=== PATIENT | female | born 1995 | race Caucasian/White ===

== ENCOUNTER 2018-01-26 04:55 | Emergency (ER) | payer MEDICAID, SELFPAY ==
[2018-01-26 04:55] VITALS: BP 125/76; PULSE 99; RESP 17; TEMP 36.3; O2SAT 97; BMI 24.3
[2018-01-26] MEDS: HYDROcodone Bitartrate/Apap 5/325 Tablet PO (05:15)
[2018-01-26] MEDS: Dicyclomine 10 MG Capsule 20 MG PO (05:15)
[2018-01-26 05:16] LABS: Bacteria 0 SEEN /hpf (None Seen); Mucous, Urine 0 SEEN /hpf (<or=2+); Red Blood Cells-Urine 0 SEEN /hpf (0-5)
[2018-01-26] MEDS: Ondansetron ODT 4 MG Tablet PO (05:16)
[2018-01-26 05:17] LABS: Color, Urine Yellow (Yellow); Glucose, Dipstick Normal (Normal); Ketone-Dipstick 15 mg/dl (Negative); Leukocyte Esterase-Dipstick 100 /ul (Negative); Nitrite-Dipstick Negative (Negative); Occult Blood-Urine Negative /ul (Negative); Protein-Dipstick 15 mg/dl (Negative); Urine Bilirubin Dipstick Negative (Negative); Urine Clarity Clear (Clear); Urine Urobilinogen 1 mg/dl (Normal); Urine pH 6.5 (5.0 - 8.0)
[2018-01-26 05:26] LABS: Squamous Epithelial Cells - UA 50-100 SEEN /hpf (5-10); White Blood Cells 0-5 SEEN /hpf (0-5)
[2018-01-26 05:27] LABS: Internal QC Validated? YES +Cl - CLEAR BKGD; Pregnancy, Urine Negative Negative
--- NOTE | 2018-01-26 06:03 | ED.DCSUM_ITS ---
- ER Visit Summary Date of Service: 01/26/18 Chief Complaint: Abdominal pain History of Present Illness: The patient is a 22 F with multiple medical issues and chronic abdominal pain presents with an exacerbation of her abdominal pain. The patient states it feels similar when she is an ovarian cyst before. The patient has been seen and evaluated in the emergency department by her primary care physician for similar complaints multiple times. She did have a CT scan 3 months ago which showed a small ovarian cyst but no other acute pathology. She states that the pain started over the past 2-3 days. It has been gradual and intermittent. She states she has cramping in bilateral lower quadrants. She is sexually active but denies any vaginal bleeding. She denies any discharge. She has had no urinary symptoms. Physical Examination: Vital signs reviewed General: Well-nourished, well-developed Head: Normocephalic, atraumatic Eyes: Pupils equal and reactive, extraocular muscles intact Neck, supple, no lymphadenopathy Heart: Regular rate and rhythm Respiratory: No distress, clear bilaterally Abdomen: Soft, nontender, nondistended, no peritoneal signs Back: Nontender Extremities: Nontender, no edema, no cords Skin: Normal color no rash Neuro: Alert and oriented, no focal or lateralizing deficits Test Results: [] Emergency Department Course and Treatment: I cannot re-create any pain on palpation. The patient has a completely benign abdomen. I really do not suspect a dangerous process. I did obtain a urine and which are both unremarkable. This may be a small cyst, but I have no suspicion of torsion. I will treat the patient with Bentyl and Naprosyn. She was counseled on concerning symptoms and reasons to return. The patient is discharged home. Treatment Plan: [] Disposition: Charge Impression: 1. Nonspecific abdominal pain This note was generated with [employer] dictation software. It may contain incorrect words, spelling, and punctuation that were not noted in review of the chart prior to signing ED Disposition - Plan for ED Patient: Disposition: Home or Assisted Living Chief Complaint: Abd Pain Instructions: ED Abdominal Pain Unkn Cause Prescriptions: Dicyclomine HCl [Bentyl] 20 mg PO TIDAC #20 cap Naproxen [Naprosyn] 500 mg PO BID #20 tab Referrals: Ryan Montoya DO [Primary Care Provider] -
[2018-01-26 06:08] VITALS: PULSE 87; RESP 22; O2SAT 100
--- NOTE | 2018-01-26 06:09 | ED.RN ---
THIS NURSE REVIEWED D/C INSTRUCTIONS WITH PT. PT VERBALIZED UNDERSTANDING OF INSTRUCTIONS. PT DENIES FURTHER NEEDS OR QUESTIONS AT THIS TIME.
== END 2018-01-26 06:10 | disposition home or self-care (01) ==
LOC: ED 06:09
PROVIDERS: Emergency Provider Emergency Medicine; Family Provider Family Medicine; PCP Family Medicine
DX: R10.9 Unspecified abdominal pain (principal); G89.29 Other chronic pain; Z79.51 Long term (current) use of inhaled steroids; Z79.899 Other long term (current) drug therapy
CPT/HCPCS: 81001; 81025; 99283

== ENCOUNTER → 2018-07-27 08:48 | Outpatient (CLI) | payer MEDICAID, SELFPAY ==
[2018-07-27 12:33] LABS: T4 Free Direct 0.91 ng/dL (0.76-1.46); Thyroid Stim Hormone (TSH) 2.59 uIU/mL (0.358-3.74)
[2018-07-27 13:31] LABS: HIV - WCH Non-Reactive (Nonreactive)
[2018-07-27 14:12] LABS: Chlamydia Trachomatis by PCR Negative (Negative); Neisserai gonorrhoeae by PCR Negative (Negative); Probe Check PASS; Sample Adequacy Control PASS; Specimen Processing Control PASS
[2018-07-29 03:49] LABS: Rapid Plasmin Reagin (RPR) NONREACTIVE (NONREACTIVE)
== END ==
PROVIDERS: Family Provider Family Medicine; PCP Family Medicine; Visit Provider Family Medicine
DX: E01.0 Iodine-deficiency related diffuse (endemic) goiter (principal); T74.21XA Adult sexual abuse, confirmed, initial encounter; Z20.9 Contact with and (suspected) exposure to unspecified communicable disease
CPT/HCPCS: 36415; 84439; 84443; 86592; 86703; 87491; 87591

== ENCOUNTER → 2018-08-26 10:47 | Outpatient (CLI) | payer MEDICAID, SELFPAY ==
[2018-08-26 12:15] LABS: Absolute Lymphocyte Count 1.74 X10^3/ul (0.83-4.51); Absolute Neutrophil Count 2.9 X10^3/uL (2.0-7.7); Basophil# 0.04 X10^3/uL; Basophil% 0.8 % (0-1); Eosinophil# 0.08 X10^3/uL; Eosinophils% 1.5 % (0-5); Hematocrit 36.6 % (37-47); Hemoglobin 11.8 g/dl (12.0-15.0); Lymphocyte # 1.74 X10^3/ul (4.0); Mean Corp Hgb Conc 32.2 g/gl (32-36); Mean Corpuscular Hgb 25.6 pg (27.0-32.0); Mean Corpuscular Volume 79.4 fL (81-99); Mean Platelet Vol. 9.5 fl (6.2-12.0); Monocyte# 0.51 X10^3/uL; Monocyte% 9.7 % (0-10); Platelet Count 294 K/mm3 (150-450); RBC Distribution Width CV 16.1 % (11.6-14.6); Red Blood Count 4.61 M/mm3 (4.2-5.4); White Blood Count 5.3 K/mm3 (4.4-11.0)
[2018-08-26 12:22] LABS: POSITIVE COUNT NO; POSITIVE DIFFERENTIAL NO; POSITIVE MORPHOLOGY NO
[2018-08-26 12:32] LABS: ALB/GLOB Ratio 1.1 RATIO (0.9-2.4); AST(SGOT) 14 U/L (15-37); Alanine Aminotransfer ALT/SGPT 18 U/L (13-56); Albumin, Serum 3.9 g/dL (3.2-5.0); Alkaline Phosphatase 57 U/L (45-117); Anion Gap 9 (5-15); BUN 11 mg/dL (7-18); BUN/Creat Ratio 16.9 RATIO (10-20); CRP < 2.90 mg/L (0.0-3.0); Chloride 108 mmol/L (98-107); Creatinine, Serum 0.65 mg/dL (0.55-1.02); EST Glomerular Filtration Rate 122 mL/min (>60); Est Glom Filt Rate - Afr Amer 148 mL/min (>60); Globulin 3.7 g/dL (2.2-4.2); Glucose 77 mg/dL (74-106); Potassium 3.7 mmol/L (3.5-5.1); Protein, Total 7.6 g/dL (6.4-8.2); Sodium Level 141 mmol/L (136-145)
[2018-08-26 13:09] LABS: HIV - WCH Non-Reactive (Nonreactive)
== END ==
PROVIDERS: Family Provider Family Medicine; PCP Family Medicine; Visit Provider Family Medicine
DX: T74.21XA Adult sexual abuse, confirmed, initial encounter (principal); R10.9 Unspecified abdominal pain; R35.0 Frequency of micturition; Z20.2 Contact with and (suspected) exposure to infections with a predominantly sexual mode of transmission
CPT/HCPCS: 36415; 80053; 85025; 86140; 86703

== ENCOUNTER → 2018-09-24 08:48 | Outpatient (CLI) | payer MEDICAID, SELFPAY ==
--- NOTE | 2018-09-24 09:23 | US_ITS ---
STUDY: ULTRASOUND TRANSVAGINAL CLINICAL: Female, 23 years old. Irregular menses. TECHNIQUE: Transabdominal and transvaginal. COMPARISON: None. FINDINGS: Uterus is anteverted and measures 6.9 x 4.3 x 3.3 cm. Endometrial thickness 7 mm. Endometrium is hyperechoic. No fibroids. Cervix is within normal limits. No IUD. Normal right ovary, measuring 3.3 x 2.2 x 2.1 cm. Normal vascular flow. Normal left ovary, measuring 4.3 x 2.9 x 2.2 cm. Normal vascular flow. There is no free fluid in the pelvis. Bladder volume is 1067 mL. US/Pelvic (Non ) IMPRESSION: Normal pelvic ultrasound. Electronically Signed: Reji Honeycutt MD at 4:02 EDT , Service support ,
--- NOTE | 2018-09-24 09:33 | US_ITS ---
STUDY: ULTRASOUND TRANSVAGINAL CLINICAL: Female, 23 years old. Irregular menses. TECHNIQUE: Transabdominal and transvaginal. COMPARISON: None. FINDINGS: Uterus is anteverted and measures 6.9 x 4.3 x 3.3 cm. Endometrial thickness 7 mm. Endometrium is hyperechoic. No fibroids. Cervix is within normal limits. No IUD. Normal right ovary, measuring 3.3 x 2.2 x 2.1 cm. Normal vascular flow. Normal left ovary, measuring 4.3 x 2.9 x 2.2 cm. Normal vascular flow. There is no free fluid in the pelvis. Bladder volume is 1067 mL. US/Transvaginal Non- IMPRESSION: Normal pelvic ultrasound. Electronically Signed: Reji Honeycutt MD at 4:02 EDT , Service support ,
== END ==
PROVIDERS: Family Provider Family Medicine; PCP Family Medicine
DX: N93.8 Other specified abnormal uterine and vaginal bleeding (principal)
CPT/HCPCS: 76830; 76856; 93976

== ENCOUNTER → 2018-11-18 08:46 | Outpatient (CLI) | payer MEDICAID, SELFPAY ==
[2018-11-18 12:12] LABS: Absolute Lymphocyte Count 1.26 X10^3/ul (0.83-4.51); Basophil# 0.03 X10^3/uL; Basophil% 0.4 % (0-1); Eosinophil# 0.07 X10^3/uL; Hematocrit 36.5 % (37-47); Hemoglobin 11.5 g/dl (12.0-15.0); Lymphocyte # 1.26 X10^3/ul (4.0); Lymphocyte % 17.6 % (19-41); Mean Corp Hgb Conc 31.5 g/gl (32-36); Mean Corpuscular Hgb 25.7 pg (27.0-32.0); Mean Corpuscular Volume 81.7 fL (81-99); Mean Platelet Vol. 9.7 fl (6.2-12.0); Monocyte# 0.79 X10^3/uL; Neutrophil # 4.99 X10^3/uL (2.7-7.7); Neutrophil % 69.9 % (47-70); Platelet Count 309 K/mm3 (150-450); RBC Distribution Width CV 15.3 % (11.6-14.6); RBC Distribution Width SD 44.9 fl (35.1-43.9); Red Blood Count 4.47 M/mm3 (4.2-5.4); White Blood Count 7.2 K/mm3 (4.4-11.0)
[2018-11-18 12:16] LABS: POSITIVE COUNT NO; POSITIVE DIFFERENTIAL NO; POSITIVE MORPHOLOGY NO
[2018-11-18 12:22] LABS: ALB/GLOB Ratio 0.9 RATIO (0.9-2.4); AST(SGOT) 13 U/L (15-37); Alanine Aminotransfer ALT/SGPT 21 U/L (13-56); Albumin, Serum 3.7 g/dL (3.2-5.0); Alkaline Phosphatase 55 U/L (45-117); Anion Gap 7 (5-15); BUN 11 mg/dL (7-18); BUN/Creat Ratio 16.3 RATIO (10-20); Calcium,Total 8.6 mg/dL (8.5-10.1); Chloride 107 mmol/L (98-107); Creatinine, Serum 0.67 mg/dL (0.55-1.02); EST Glomerular Filtration Rate 117 mL/min (>60); Est Glom Filt Rate - Afr Amer 141 mL/min (>60); Globulin 3.9 g/dL (2.2-4.2); Glucose 85 mg/dL (74-106); Potassium 3.9 mmol/L (3.5-5.1); Protein, Total 7.6 g/dL (6.4-8.2); Sodium Level 141 mmol/L (136-145)
== END ==
PROVIDERS: Family Provider Family Medicine; PCP Family Medicine; Visit Provider Family Medicine
DX: R10.9 Unspecified abdominal pain (principal)
CPT/HCPCS: 36415; 80053; 85025; 86140

== ENCOUNTER → 2019-01-23 13:56 | Outpatient (CLI) | payer MEDICAID, SELFPAY ==
[2019-01-23 15:17] LABS: Absolute Lymphocyte Count 2.02 X10^3/ul (0.83-4.51); Absolute Neutrophil Count 2.7 X10^3/uL (2.0-7.7); Basophil# 0.03 X10^3/uL; Basophil% 0.6 % (0-1); Eosinophil# 0.03 X10^3/uL; Eosinophils% 0.6 % (0-5); Hematocrit 38.7 % (37-47); Hemoglobin 12.3 g/dl (12.0-15.0); Lymphocyte # 2.02 X10^3/ul (4.0); Lymphocyte % 38.4 % (19-41); Mean Corp Hgb Conc 31.8 g/gl (32-36); Mean Corpuscular Hgb 25.4 pg (27.0-32.0); Mean Corpuscular Volume 79.8 fL (81-99); Mean Platelet Vol. 9.4 fl (6.2-12.0); Monocyte# 0.49 X10^3/uL; Monocyte% 9.3 % (0-10); Neutrophil # 2.69 X10^3/uL (2.7-7.7); Neutrophil % 51.1 % (47-70); Platelet Count 352 K/mm3 (150-450); RBC Distribution Width SD 43.4 fl (35.1-43.9); Red Blood Count 4.85 M/mm3 (4.2-5.4); White Blood Count 5.3 K/mm3 (4.4-11.0)
[2019-01-23 15:38] LABS: hCG Titer Quant., Serum < 1 mIU/mL (<9 non-preg)
[2019-01-23 15:40] LABS: POSITIVE COUNT NO; POSITIVE DIFFERENTIAL NO; POSITIVE MORPHOLOGY NO
[2019-01-23 15:43] LABS: Vitamin B12 701 pg/mL (211-911)
[2019-01-23 15:50] LABS: ALB/GLOB Ratio 1.1 RATIO (0.9-2.4); AST(SGOT) 12 U/L (15-37); Alanine Aminotransfer ALT/SGPT 16 U/L (13-56); Albumin, Serum 4.3 g/dL (3.2-5.0); Alkaline Phosphatase 61 U/L (45-117); Anion Gap 9 (5-15); BUN 9 mg/dL (7-18); BUN/Creat Ratio 12.7 RATIO (10-20); CRP < 2.90 mg/L (0.0-3.0); Calcium,Total 8.7 mg/dL (8.5-10.1); Chloride 106 mmol/L (98-107); Creatinine, Serum 0.71 mg/dL (0.55-1.02); EST Glomerular Filtration Rate 110 mL/min (>60); Est Glom Filt Rate - Afr Amer 133 mL/min (>60); Globulin 3.9 g/dL (2.2-4.2); Glucose 91 mg/dL (74-106); Potassium 3.5 mmol/L (3.5-5.1); Protein, Total 8.2 g/dL (6.4-8.2); Sodium Level 141 mmol/L (136-145); T4 Free Direct 0.99 ng/dL (0.76-1.46); Thyroid Stim Hormone (TSH) 1.92 uIU/mL (0.358-3.74)
[2019-01-23 15:59] LABS: Erythrocyte Sedimentation Rate 15 mm/hr (0-20)
[2019-01-24 08:06] LABS: Cancer Antigen 125 24.7 U/mL (0.0-38.1)
== END ==
PROVIDERS: Family Provider Family Medicine; PCP Family Medicine; Visit Provider Family Medicine
DX: R10.9 Unspecified abdominal pain (principal); G62.9 Polyneuropathy, unspecified; E04.1 Nontoxic single thyroid nodule; Z80.41 Family history of malignant neoplasm of ovary
CPT/HCPCS: 36415; 80053; 82607; 84439; 84443; 84702; 85025; 85652; 86140; 86304

== ENCOUNTER 2019-06-13 09:51 | Emergency (ER) | payer MEDICAID, SELFPAY ==
[2019-06-13 09:52] VITALS: BP 108/61; PULSE 77; RESP 14; TEMP 36.6; O2SAT 97; BMI 27.4
--- NOTE | 2019-06-13 10:00 | EKG12_ITS ---
Test Reason : CP Blood Pressure : / mmHG Vent. Rate : 072 BPM Atrial Rate : 072 BPM P-R Int : 140 ms QRS Dur : 082 ms QT Int : 400 ms P-R-T Axes : 033 060 030 degrees QTc Int : 438 ms Normal sinus rhythm Normal ECG Confirmed by HAILEY CARTAGENA MD ([id number]), magazine editor JASPAL AMES ([id number]) on 06/15/2019 1:42:57 PM Referred By: RUSS Confirmed By:HAILEY CARTAGENA MD
--- NOTE | 2019-06-13 10:01 | ED.VIS.CHEST ---
History of Present Illness Chief Complaint: Chest Pain Informant: Patient Onset: Hours - 1 Activity at onset: Sleep Timing: Continuous Quality: Stabbing Location: Right Chest - radiates a little into upper back Current Severity: Moderate Maximum Severity: Moderate Worsened By: Nothing Relieved By: Nothing Associated Symptoms: Negative for: Nausea, Vomiting, Diaphoresis, Dyspnea, Cough, Lightheadedness, Palpitations Narrative: Patient states she has had these symptoms chronically, she gets it every several days, and whenever she gets it, I come to the hospital. States she recently moved back here and is seeing Dr. Nam now but has not talked to her PCP yet about the symptoms. She states in the past in the ER, they do not do anything for me. Symptoms occur basically only when she is lying down. She often wakes up with the symptoms as she did this morning. Sitting up did not make them go away. It feels sharp and nonpleuritic. She denies any associated systemic symptoms. When she is upright during the day, even when exerting herself, she has no recurrence of symptoms. Prior Similar Symptoms: Yes - chronically intermittent Recent Illness/Hospitalization: No CVD Risk Factors: Diabetes. Negative for: Hypertension, Hypercholesterolemia, Family History 1' </=55, Smoking PE Risk Factors: Negative for: Recent Travel/Surgery, Recenet Immobilization, Prior DVT or PE, Cancer, OCP + Smoking + >/=35 - Past Medical History (1) alcohol syndrome Status: Chronic (2) Asthma Status: Chronic (3) Diet-controlled diabetes mellitus Status: Chronic (4) GERD (gastroesophageal reflux disease) Status: Chronic Past Medical History - Allergies and Home Meds Allergies/Adverse Reactions: Allergies etonogestrel [From Nexplanon] Allergy (Verified 06/13/19 09:54) Swelling lidocaine Allergy (Verified 06/13/19 09:54) Anaphylaxis mushroom Allergy (Verified 06/13/19 09:54) Other procaine [From Novocain] Allergy (Verified 06/13/19 09:54) Unknown adhesive tape Adverse Reaction (Verified 06/13/19 09:54) Rash Primary Care Physician: Galdino Nam MD [Primary Care Provider] - 3-5 Days (call for appt) Doctors: Viv Smoking Status: Former smoker Drugs: None Review of Systems General: Denies: Chills, Fever, Sweats Eyes: Denies: Visual changes - bilaterally, Diplopia ENT: Denies: Rhinorrhea, Sore throat Cardiovascular: Reports: Chest pain. Denies: Palpitations Respiratory: Denies: Dyspnea, Cough, Dyspnea on exertion Gastrointestinal: Denies: Abdominal pain, Nausea, Vomiting, Diarrhea, Melena, Hematochezia Genitourinary: Denies: Dysuria, Hematuria, Frequency Musculoskeletal: Reports: Back pain. Denies: Swelling, Extremity Pain Skin: Denies: Rash, Wounds Neurological: Denies: Headache, Weakness, Numbness Hematologic: Denies: Easy bruising, Easy bleeding Allergy: Denies: Swelling of the mouth, Swelling of the tongue Physical Exam Vital Signs/Narrative: Vital Signs Temp Pulse Resp BP Pulse Ox 06/13/19 09:52 97.8 F 77 14 108/61 97 Inital Vital Signs reviewed: Yes General: Well nourished, Well developed, No Acute Distress Head: Normocephalic, Atraumatic Eyes: Perrl, EOMI ENT: Moist mucous membranes, No rhinorrhea Neck: Supple, Nontender Cardiovascular: Regular rate, Regular rhythm, No murmurs, Normal S1, Normal S2, - - equal bilat 2+/4 rad pulses. Negative for: Tachycardia Respiratory: No distress, CTA bilaterally, Chest nontender Abdomen: Soft, Nontender, Nondistended, Normal bowel sounds Back: Nontender, Normal Inspection Extremities: Nontender, No edema. Negative for: Calf Tenderness Skin: Normal color, No rash, No Trauma Neurological: Alert, Oriented x3, Cranial nerves II-XII grossly intact, Normal Strength, Normal Sensation Psychological: Normal affect, Normal Mood Diagnostic/Tx/Re-eval - Rhythm Strip Rhythm Strip: Sinus Rhythm Rate: 75 Ectopy: None - EKG Initial EKG Interpretation: Sinus Rhythm, No Acute Injury Pattern - Normal EKG Treatment: GI Cocktail Repeat Eval: unchanged - Medical Decision Making This clearly is noncardiac discomfort. Her EKG confirms there is no acute cardiac abnormality electrically. Her vital signs are unremarkable and her score is 0. Therefore, further work-up to rule out pulmonary embolus is not indicated. Initially after a GI cocktail, she had no change. She was then given an injection of Toradol, and her discomfort completely resolved and she feels better and is asking for a work note. Advised to follow-up. She is already on omeprazole, advised to continue it. ED Disposition - Plan for ED Patient: Disposition: Home or Assisted Living Diagnosis: Non-cardiac chest pain Instructions: CHEST PAIN, NonCardiac Referrals: Galdino Nam MD [Primary Care Provider] - 3-5 Days (call for appt)
[2019-06-13] MEDS: Mag Hydrox/Al Hydrox/Simeth 30 ML UDC PO (10:07)
[2019-06-13 10:21] LABS: Bedside Glucose 107 mg/dL (70-110)
[2019-06-13] MEDS: Ketorolac 30 MG/ML Syringe IM (11:07)
[2019-06-13 12:08] VITALS: BP 103/78; PULSE 71; RESP 16; O2SAT 98
== END 2019-06-13 12:09 | disposition home or self-care (01) ==
PROVIDERS: Emergency Provider Emergency Medicine; Family Provider Family Medicine; PCP Family Medicine
DX: R07.89 Other chest pain (principal); J45.909 Unspecified asthma, uncomplicated; K21.9 Gastro-esophageal reflux disease without esophagitis; E11.9 Type 2 diabetes mellitus without complications; Z87.891 Personal history of nicotine dependence; Z79.51 Long term (current) use of inhaled steroids; Z79.899 Other long term (current) drug therapy
CPT/HCPCS: 82962; 93005; 96372; 99283

== ENCOUNTER → 2019-06-22 | Outpatient (CLI) | payer MEDICAID, SELFPAY ==
[2019-06-13 09:52] VITALS: BMI 27.4
[2019-06-22 16:30] LABS: D-Dimer Quantitative (DVT/PE) 0.43 FEU/ug/m (0.27-0.49)
== END | disposition home or self-care (01) ==
LOC: LAB 15:38 → LABSPEC 15:51
PROVIDERS: Family Provider Family Medicine; PCP Family Medicine; Referring Provider Family Medicine; Visit Provider Family Medicine
DX: R07.9 Chest pain, unspecified (principal)
CPT/HCPCS: 85379

== ENCOUNTER 2019-08-30 00:10 | Emergency (ER) | payer MEDICAID, SELFPAY ==
[2019-08-30 00:12] VITALS: BP 114/67; PULSE 89; RESP 14; TEMP 36.9; O2SAT 98; BMI 29.2
--- NOTE | 2019-08-30 00:20 | RAD_ITS ---
HISTORY: FALL, RIGHT WRIST PAIN ADDITIONAL HISTORY: None provided. COMPARISON: None TECHNIQUE: Right wrist 3 views Number of images including paperwork: 3 FINDINGS: BONES: No acute fracture. JOINTS: No subluxation. SOFT TISSUES: No distinct foreign body. RAD/Wrist min 3 Views IMPRESSION: No acute osseous abnormality. at 0107 Reported and signed by: Yisel Moore MD Electronically Signed: Yisel Moore MD at 1:07 EDT Tel , Service support ,
--- NOTE | 2019-08-30 00:20 | RAD_ITS ---
HISTORY: FALL/RIGHT ANKLE PAIN ADDITIONAL HISTORY: None provided. COMPARISON: 08/25/2017 TECHNIQUE: Right ankle 3 views Number of images including paperwork: 3 FINDINGS: BONES: No acute fracture. JOINTS: No subluxation. SOFT TISSUES: No distinct foreign body. RAD/Ankle min 3 Views IMPRESSION: No acute osseous abnormality. at 0108 Reported and signed by: Yisel Moore MD Electronically Signed: Yisel Moore MD at 1:08 EDT Tel , Service support ,
--- NOTE | 2019-08-30 00:20 | RAD_ITS ---
HISTORY: FELL TONIGHT/RIGHT KNEE PAIN ADDITIONAL HISTORY: None provided. COMPARISON: None TECHNIQUE: Right knee 4 views Number of images including paperwork: 5 FINDINGS: BONES: No acute fracture. JOINTS: No subluxation. Lateral tilting of the patella SOFT TISSUES: No distinct foreign body. Anterior soft tissue swelling. RAD/Knee 4 or More Views IMPRESSION: No acute osseous abnormality. at 0106 Reported and signed by: Yisel Moore MD Electronically Signed: Yisel Moore MD at 1:06 EDT Tel , Service support ,
--- NOTE | 2019-08-30 00:23 | ED.DCSUM_ITS ---
- ER Visit Summary Date of Service: 08/30/19 Chief Complaint: Fall History of Present Illness: The patient is a 24 F who tells me she was climbing up to the top bunk tonight when her knee gave out. She ended up falling to the ground. She notes pain in the right wrist, right anterior inferior knee, and the right ankle. No loss of conscious. No neck or back pain. Physical Examination: Afebrile vital signs are stable Gen: Well-nourished well-developed Head: Normocephalic atraumatic Eyes: Perrl EOMI ENT: TMs clear no rhinorrhea moist mucous membranes Neck: Supple no lymphadenopathy no JVD nontender CVS: Regular rate rhythm no murmurs normal S1-S2 Respiratory: No distress clear to auscultation bilaterally chest nontender Abdomen: Soft nontender nondistended normal bowel sounds no masses Back: Nontender Extremity: There is a small superficial abrasion about 3 mm in length to the right lateral malleolus. The right knee is tender with a small contusion in the inferior lateral anterior skin. Ligaments are stable. No joint effusion. Extensor mechanism is intact. Right wrist demonstrate tenderness to palpation but no deformity. She is able to supinate pronate. Neurovascular intact Skin: Normal color no rash Neuro: alert orientated ?3 CN II-XII intact normal strength sensation Psych: Normal affect normal mood Test Results: X-rays of the wrist, knee, and ankle were obtained. Emergency Department Course and Treatment: No obvious fractures were noted. She will be discharged home with supportive care. Follow-up with primary care in 10 to 14 days if not improved Impression: 1. Right wrist sprain 2. Right knee contusion 3. Right ankle abrasion and contusion This note was generated with [employer] dictation software. It may contain incorrect words, spelling, and punctuation that were not noted in review of the chart prior to signing ED Disposition - Plan for ED Patient: Disposition: Home or Assisted Living Instructions: CONTUSION, Lower Extremity, Wrist Sprain Referrals: Galdino Nam MD [Primary Care Provider] - 10-14 Days if not better
== END 2019-08-30 00:53 | disposition home or self-care (01) ==
LOC: ED 00:30
PROVIDERS: Emergency Provider Emergency Medicine; Family Provider Family Medicine; PCP Family Medicine
DX: S63.501A Unspecified sprain of right wrist, initial encounter (principal); S80.01XA Contusion of right knee, initial encounter; S90.511A Abrasion, right ankle, initial encounter; J45.909 Unspecified asthma, uncomplicated; K21.9 Gastro-esophageal reflux disease without esophagitis; Z87.891 Personal history of nicotine dependence; Z79.51 Long term (current) use of inhaled steroids; Z79.899 Other long term (current) drug therapy; W06.XXXA Fall from bed, initial encounter; Y93.89 Activity, other specified; Y92.003 Bedroom of unspecified non-institutional (private) residence as the place of occurrence of the external cause; Y99.8 Other external cause status
CPT/HCPCS: 73110; 73564; 73610; 99282

== ENCOUNTER 2019-09-24 15:29 | Emergency (ER) | payer MEDICAID, SELFPAY ==
[2019-09-24 15:31] VITALS: BP 108/69; PULSE 87; PULSE 92; RESP 17; TEMP 36.7; O2SAT 98; BMI 26.7
--- NOTE | 2019-09-24 15:42 | ED.VISSUMM ---
- ER Visit Summary Date of Service: 09/24/19 Chief Complaint: 1 to 2-day history of nausea, vomiting, diarrhea and cough. History of Present Illness: The patient is a 24 F past medical history of asthma, pseudoseizures, borderline diabetes and depression. She is also had alcohol syndrome. They states the last 2 days she has had a cough at times of yellowish phlegm. And nausea, vomiting diarrhea. States she is able to hold fluids down. Subjectively has had fever chills but not documented fever. Denies abdominal pain. No shortness of breath. Physical Examination: Well-appearing young female no acute distress. Vital signs are stable and afebrile. Pulse is 90% room air no signs of hypoxia. Temperature 98.1. She does not look septic or toxic. H EENT exam unremarkable. Moist week's membranes. Posterior pharynx normal. No trouble swallowing or breathing. No stridor or drooling. Neck nontender. No lymphadenopathy. No meningismus. Lungs clear to auscultation bilaterally. Dry cough. Heart regular rhythm no murmur. Abdomen soft and nontender normal bowel sounds no peritoneal signs. Patient moving all 4 extremities calves are nontender without edema. Neurologically she is awake alert with no focal motor deficits. Test Results: None Emergency Department Course and Treatment: Clinically and historically viral syndrome without any significant physical findings. Treatment Plan: Fluids and rest. Patient did not want a nausea medication for home. She also did not need a work or school excuse. Follow-up if not improving. Disposition: Discharge Impression: Viral syndrome This note was generated with [employer] dictation software. It may contain incorrect words, spelling, and punctuation that were not noted in review of the chart prior to signing ED Disposition - Plan for ED Patient: Referrals: Galdino Nam MD [Primary Care Provider] -
--- NOTE | 2019-09-24 15:44 | ED.DEP ---
ED Disposition - Plan for ED Patient: Disposition: Home or Assisted Living Instructions: VIRAL SYNDROME (Adult) Referrals: Galdino Nam MD [Primary Care Provider] - 1 Week if not improving Additional Instructions: Plenty of fluids and rest. Follow-up if not improving or return if feeling worse. Tylenol Motrin for fever and body aches.
== END 2019-09-24 16:05 | disposition home or self-care (01) ==
LOC: ED 16:01
PROVIDERS: Emergency Provider Emergency Medicine; Family Provider Family Medicine; PCP Family Medicine
DX: B34.9 Viral infection, unspecified (principal); F32.9 Major depressive disorder, single episode, unspecified; J45.909 Unspecified asthma, uncomplicated; Z79.51 Long term (current) use of inhaled steroids; Z79.899 Other long term (current) drug therapy; Q86.0 Fetal alcohol syndrome (dysmorphic); Z72.0 Tobacco use
CPT/HCPCS: 99282

== ENCOUNTER 2019-10-18 17:37 | Emergency (ER) | payer MEDICAID, SELFPAY ==
[2019-10-18 17:38] VITALS: BP 112/75; PULSE 91; RESP 15; TEMP 37.7; O2SAT 97; BMI 26.6
--- NOTE | 2019-10-18 17:48 | EKG12_ITS ---
Test Reason : GEN. ILLNESS Blood Pressure : / mmHG Vent. Rate : 090 BPM Atrial Rate : 090 BPM P-R Int : 140 ms QRS Dur : 088 ms QT Int : 372 ms P-R-T Axes : 040 072 022 degrees QTc Int : 455 ms Normal sinus rhythm Normal ECG Confirmed by AYALA CHAND, GODFREY ([id number]), editor greeting card JASPAL AMES ([id number]) on 10/20/2019 1:16:34 PM Referred By: DEENA Confirmed By:KRYSTAL CAI MD
--- NOTE | 2019-10-18 17:48 | RAD_ITS ---
STUDY: X-RAY CHEST REASON FOR EXAM: Female, 24 years old. Chest pain TECHNIQUE: PA and lateral views of the chest COMPARISON: X-Ray Chest December 11, 2017 FINDINGS: The lungs are clear. There are no pleural effusions. There is no pneumothorax. The heart is normal in size. The visualized osseous structures are within normal limits. RAD/Chest PA and Lateral IMPRESSION: No acute thoracic pathology. Electronically Signed: Cali Tavera, at 18:56 EST Tel , Service support ,
[2019-10-18 18:31] LABS: Bacteria 0 SEEN /hpf (None Seen); Red Blood Cells-Urine 0 SEEN /hpf (0-5); White Blood Cells 0 SEEN /hpf (0-5)
[2019-10-18 18:32] LABS: Absolute Lymphocyte Count 0.79 X10^3/uL (0.83-4.51); Absolute Neutrophil Count 5.7 X10^3/uL (2.0-7.7); Basophil# 0.03 X10^3/uL; Basophil% 0.4 % (0-1); Eosinophil# 0.14 X10^3/uL; Hematocrit 41.1 % (37-47); Hemoglobin 13.4 g/dL (12.0-15.0); Lymphocyte # 0.79 X10^3/ul (4.0); Lymphocyte % 11.2 % (19-41); Mean Corp Hgb Conc 32.6 g/dL (32-36); Mean Corpuscular Volume 82.9 fL (81-99); Monocyte# 0.37 X10^3/uL; Monocyte% 5.3 % (0-10); NRBC Flagged by Analyzer 0 % (0-5); Neutrophil # 5.67 X10^3/uL (2.7-7.7); Neutrophil % 80.7 % (47-70); Platelet Count 286 K/mm3 (150-450); RBC Distribution Width CV 14.1 % (11.6-14.6); RBC Distribution Width SD 42.7 fl (35.1-43.9); Red Blood Count 4.96 M/mm3 (4.2-5.4)
[2019-10-18 18:37] LABS: Color, Urine Yellow (Yellow); Glucose, Dipstick Normal (Normal); Ketone-Dipstick Negative (Negative); Leukocyte Esterase-Dipstick Negative /ul (Negative); Nitrite-Dipstick Negative (Negative); Occult Blood-Urine 50 /ul (Negative); Protein-Dipstick 15 mg/dl (Negative); Specific Gravity, Urine 1.025 (1.002-1.030); Urine Bilirubin Dipstick Negative (Negative); Urine Clarity Sl. Cloudy (Clear); Urine Urobilinogen Normal (Normal)
[2019-10-18] MEDS: Ketorolac 30 MG/ML Syringe IV (18:38)
[2019-10-18] MEDS: 0.9% Normal Saline 1,000 ML 999 ML IV (18:38)
[2019-10-18 18:48] LABS: D-Dimer Quantitative (DVT/PE) 0.49 FEU/ug/m (0.27-0.49)
[2019-10-18 18:49] LABS: Anion Gap 8 (5-15); BUN 11 mg/dL (7-18); BUN/Creat Ratio 13.9 RATIO (10-20); Calcium,Total 8.7 mg/dL (8.5-10.1); Chloride 109 mmol/L (98-107); Creatinine, Serum 0.79 mg/dL (0.55-1.02); EST Glomerular Filtration Rate 96 mL/min (>60); Est Glom Filt Rate - Afr Amer 116 mL/min (>60); Estimated Creatinine Clearance 104.57 ml/min; Glucose 92 mg/dL (74-106); Potassium 3.2 mmol/L (3.5-5.1); Sodium Level 138 mmol/L (136-145)
[2019-10-18 18:51] LABS: Mucous, Urine 1+ /hpf (<or=2+); Squamous Epithelial Cells - UA 0-5 SEEN /hpf (5-10)
--- NOTE | 2019-10-18 19:14 | ED.VISSUMM ---
- ER Visit Summary Date of Service: 10/18/19 Chief Complaint: [Diarrhea and vomiting as well as chest pain] History of Present Illness: The patient is a 24 F [Zentz to the emergency department with vomiting and diarrhea that started at 2 AM. Patient had more than 10 episodes of vomiting and diarrhea. Patient was seen in urgent care and was referred to the ER. Patient states that she is most concerned with chest pain that she is been having intermittently over the last several months. Patient describes a sharp stabbing pain in her left chest. At times feels somewhat short of breath with it. She denies recent travel or surgery. She has no history of PE or DVT. She has no clotting disorders. Patient denies any sick contacts. Patient has had low-grade fever since the vomiting and diarrhea started up to 100. Complaint of a headache.] Physical Examination: [HEENT-PERRLA, EOMI. Cranial nerves II through XII grossly intact. TMs clear. Mucous membranes moist. No adenopathy. Cardiovascular-regular rate and rhythm without murmur or ectopy Lungs-clear to auscultation, chest wall stable without crepitus or subcu emphysema Abdomen-normoactive bowel sounds, soft, nontender, no rebound or rigidity, no peritoneal signs. Extremities-intact ?4, normal range of motion, normal pulses, atraumatic] Test Results: [EKG obtained arrival shows sinus rhythm with a ventricular rate of 90 bpm with no acute ST segment changes. CBC with it was normal. Chemistries normal other than a slightly depressed potassium at 3.2 for which I did give her 40 mEq of potassium chloride p.o. Urinalysis was normal. D-dimer was 0.49. Chest x-ray was normal.] Emergency Department Course and Treatment: [He was given Zofran 4 mill grams IV. Patient had a liter normal same fluid bolus given. Patient was given Toradol 30 mg IV for headache. No further vomiting.] Treatment Plan: [Patient to follow-up with her primary care physician 3 to 5 days. Patient advised to push fluids. Patient given a prescription for Zofran. Patient advised to use Imodium as needed for the diarrhea.] Disposition: [Discharged home in stable condition. Patient advised to return if persistent vomiting, diarrhea, dehydration, abdominal pain, or conditions worsen anyway.] Impression: [Viral gastroenteritis Chest pain-etiology uncertain] This note was generated with Dragon dictation software. It may contain incorrect words, spelling, and punctuation that were not noted in review of the chart prior to signing ED Disposition - Plan for ED Patient: Referrals: Galdino Nam MD [Primary Care Provider] -
--- NOTE | 2019-10-18 19:16 | ED.DEP ---
ED Disposition - Plan for ED Patient: Instructions: GASTROENTERITIS, Viral (8y-Adult), CHEST PAIN, Uncertain Cause Prescriptions: Ondansetron [Zofran Odt] 4 mg PO Q8H PRN PRN #10 tab PRN Reason: Nausea Prescription Printed Referrals: Galdino Nam MD [Primary Care Provider] - 3-5 Days
== END 2019-10-18 20:06 | disposition home or self-care (01) ==
LOC: ED 18:23
PROVIDERS: Emergency Provider Emergency Medicine; Family Provider Family Medicine; PCP Family Medicine
DX: A08.4 Viral intestinal infection, unspecified (principal); R07.89 Other chest pain; Z72.0 Tobacco use
CPT/HCPCS: 71046; 80048; 81001; 85025; 85379; 93005; 96361; 96374; 99285; J7030; A4216

== ENCOUNTER 2019-12-17 11:59 | Emergency (ER) | payer MEDICAID, SELFPAY ==
[2019-12-17 12:00] VITALS: BP 110/72; PULSE 79; RESP 18; TEMP 36.8; O2SAT 100; BMI 29.1
--- NOTE | 2019-12-17 12:34 | ED.VIS.LOWEX ---
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 Earlier today just prior to arrival she slipped on ice fell inverted her ankle and is having significant ankle pain and swelling and difficulty ambulating. She has no other injuries. She had no prodromal symptoms. She did not hit her head or lose consciousness. She has a history of a sprain to this ankle recently. She has no knee pain. No numbness tingling or weakness. Tetanus Immunization: Unknown Prior similar symptoms: No Recent Illness/Hospitalization: No Past Medical History - Allergies and Home Meds Allergies/Adverse Reactions: Allergies etonogestrel [From Nexplanon] Allergy (Verified 12/17/19 12:02) Swelling lidocaine Allergy (Verified 12/17/19 12:02) Anaphylaxis mushroom Allergy (Verified 12/17/19 12:02) Other procaine [From Novocain] Allergy (Verified 12/17/19 12:02) Unknown adhesive tape Adverse Reaction (Verified 12/17/19 12:02) Rash Primary Care Physician: Galdino Nam MD [Primary Care Provider] - Prior records reviewed: Yes Past Medical History: None Surgical History: no surgical history Lives: With Family Smoking Status: Current every day smoker Alcohol: Occasional Review of Systems All systems negative except as indicated General: Denies: Chills, Fever Eyes: Denies: Visual changes - bilaterally, Blurred Vision - bilaterally ENT: Denies: Rhinorrhea, Sore throat Cardiovascular: Denies: Chest pain, Palpitations Respiratory: Denies: Dyspnea, Cough Gastrointestinal: Denies: Nausea, Vomiting, Diarrhea Genitourinary: Denies: Dysuria, Hematuria, Frequency Musculoskeletal: Reports: Swelling, Extremity Pain. Denies: Neck pain, Back pain Skin: Denies: Rash, Abscess, Abrasions, Wounds Neurological: Denies: Weakness, Parasthesia, Numbness Physical Exam Vital Signs/Narrative: Vital Signs Temp Pulse Resp BP Pulse Ox 12/17/19 12:00 98.2 F 79 18 110/72 100 Inital Vital Signs reviewed: Yes - Extremity Exam Left Ankle: Edema, - - Patient has mild swelling left ankle. Skin is intact. No bruising or redness. No signs of trauma. Bony tenderness lateral malleolus. There is no other bony tenderness of the ankle or foot. She has no proximal fibular tenderness and knee is nontender on palpation. She is able to plantarflex and dorsiflex. She has normal DP and PT pulses. Normal capillary refill and sensation of all 5 toes. Normal flexion and extension actively at the knee. Diagnostic/Tx/Re-eval - Medical Decision Making X-ray left ankle shows no acute abnormality. We will place the patient in an Aircast. Pain treated in the emergency department with ibuprofen. She has crutches to use at home and will continue to use these and I will write her prescription for ibuprofen. Advised her to rest ice and elevate and follow-up with her primary care physician or she is to return the emergency department for worsening symptoms which were discussed. ED Disposition - Plan for ED Patient: Disposition: Home or Assisted Living Diagnosis: Left ankle sprain Instructions: Sprain, Ankle, with X-Ray Prescriptions: Naproxen [Naprosyn] 500 mg PO BID #14 tab Prescription Printed Referrals: Galdino Nam MD [Primary Care Provider] - 3-5 Days
--- NOTE | 2019-12-17 12:35 | RAD_ITS ---
STUDY: X-RAY - LEFT ANKLE REASON FOR EXAM: Female, 24 years old. LEFT ANKLE PAIN AFTER FALL TECHNIQUE: 3 view(s) of the ankle. COMPARISON: None. FINDINGS: Normal visualized distal tibia and fibula. Normal medial and lateral malleoli. Normal tibiotalar articulation and ankle mortise. Normal visualized talus and calcaneus. The visualized subtalar, talonavicular, calcaneocuboid and tarsal articulations are normal. The soft tissue structures are unremarkable. RAD/Ankle min 3 Views IMPRESSION: No fracture or malalignment. Electronically Signed: Jim Arizmendi MD ([place]) at 12:49 EST , Service support ,
[2019-12-17] MEDS: Ibuprofen 600 MG Tablet PO (12:45)
== END 2019-12-17 14:06 | disposition home or self-care (01) ==
PROVIDERS: Emergency Provider Physician Assistant Medical; PCP Family Medicine
DX: S93.402A Sprain of unspecified ligament of left ankle, initial encounter (principal); F17.200 Nicotine dependence, unspecified, uncomplicated; W00.0XXA Fall on same level due to ice and snow, initial encounter; Y93.01 Activity, walking, marching and hiking; Y92.89 Other specified places as the place of occurrence of the external cause; Y99.8 Other external cause status
CPT/HCPCS: 73610; 99285

== ENCOUNTER 2020-01-14 21:19 | Emergency (ER) | payer MEDICAID, SELFPAY ==
[2020-01-14 21:21] VITALS: BP 133/22; PULSE 90; RESP 16; TEMP 36.4; O2SAT 99; BMI 25.0
--- NOTE | 2020-01-14 22:00 | RAD_ITS ---
HISTORY: cold symptoms, diarrhea ADDITIONAL HISTORY: None provided. COMPARISON: 10/18/2019 TECHNIQUE: Frontal and lateral chest radiographs. Number of images including paperwork: 2 FINDINGS: LUNGS AND PLEURA: No consolidation, mass or pleural effusion. CARDIAC SILHOUETTE: Unremarkable. MEDIASTINUM AND TRICIA: Unremarkable. UPPER ABDOMEN: Unremarkable. SKELETON AND SOFT TISSUES: No acute findings. OTHER DEVICES AND HARDWARE: None. RAD/Chest PA and Lateral IMPRESSION: No acute cardiopulmonary abnormality. at 2213 Reported and signed by: Yisel Moore MD Electronically Signed: Yisel Moore MD at 22:13 EST Tel , Service support ,
[2020-01-14 22:02] LABS: Mucous, Urine 0 SEEN /hpf (<or=2+); Red Blood Cells-Urine 0 SEEN /hpf (0-5)
[2020-01-14 22:06] LABS: Absolute Lymphocyte Count 1.84 X10^3/uL (0.83-4.51); Absolute Neutrophil Count 5.4 X10^3/uL (2.0-7.7); Basophil# 0.05 X10^3/uL; Basophil% 0.6 % (0-1); Eosinophil# 0.16 X10^3/uL; Hematocrit 39.5 % (37-47); Hemoglobin 12.8 g/dL (12.0-15.0); Lymphocyte # 1.84 X10^3/ul (4.0); Lymphocyte % 22.9 % (19-41); Mean Corp Hgb Conc 32.4 g/dL (32-36); Mean Corpuscular Hgb 27.7 pg (27.0-32.0); Mean Corpuscular Volume 85.5 fL (81-99); Mean Platelet Vol. 9.3 fl (6.2-12.0); Monocyte% 7.5 % (0-10); NRBC Flagged by Analyzer 0 % (0-5); Neutrophil # 5.35 X10^3/uL (2.7-7.7); Neutrophil % 66.6 % (47-70); Platelet Count 314 K/mm3 (150-450); RBC Distribution Width CV 13.8 % (11.6-14.6); RBC Distribution Width SD 43.3 fl (35.1-43.9); Red Blood Count 4.62 M/mm3 (4.2-5.4)
[2020-01-14 22:07] LABS: Color, Urine Yellow (Yellow); Glucose, Dipstick Normal (Normal); Ketone-Dipstick Negative (Negative); Leukocyte Esterase-Dipstick 25 /ul (Negative); Nitrite-Dipstick Negative (Negative); Occult Blood-Urine Negative /ul (Negative); Protein-Dipstick Negative (Negative); Specific Gravity, Urine 1.015 (1.002-1.030); Urine Bilirubin Dipstick Negative (Negative); Urine Clarity Cloudy (Clear); Urine Urobilinogen Normal (Normal)
[2020-01-14 22:14] LABS: Amorphous Sediment 3+; Bacteria 3+ /hpf (None Seen); Squamous Epithelial Cells - UA 10-25 SEEN /hpf (5-10); White Blood Cells 0-5 SEEN /hpf (0-5)
[2020-01-14 22:15] LABS: Internal QC Validated? YES +Cl - CLEAR BKGD; Pregnancy, Serum, hCG Quali. NEGATIVE Negative
[2020-01-14 22:18] VITALS: RESP 16
[2020-01-14 22:20] LABS: Anion Gap 5 (5-15); BUN 8 mg/dL (7-18); BUN/Creat Ratio 10.5 RATIO (10-20); Calcium,Total 8.7 mg/dL (8.5-10.1); Chloride 116 mmol/L (98-107); Creatinine, Serum 0.76 mg/dL (0.55-1.02); EST Glomerular Filtration Rate 101 mL/min (>60); Est Glom Filt Rate - Afr Amer 122 mL/min (>60); Estimated Creatinine Clearance 112.91 ml/min; Glucose 102 mg/dL (74-106); Potassium 3.7 mmol/L (3.5-5.1); Sodium Level 144 mmol/L (136-145)
--- NOTE | 2020-01-14 22:41 | CT_ITS ---
HISTORY: RECTAL BLEEDING, DIARRHEA, COLD SYMPTOMS, HX CROHN'S AND ULCERATIVE COLITIS, BENIGN TUMOR REMOVED LOWER ABD LAST FALL ADDITIONAL HISTORY: None provided. TECHNIQUE: CT images were obtained of the abdomen and pelvis without IV contrast. Enteric contrast was not given. Number of images including paperwork: 408. A radiation dose optimization technique was used for this scan. COMPARISON: 10/18/2017 FINDINGS: Evaluation of the abdominopelvic organs is limited in the absence of contrast. LOWER THORAX: No consolidation or pleural effusion. LIVER: No concerning focal lesion. GALLBLADDER: No radiopaque calculi. BILE DUCTS: No significant biliary dilatation. SPLEEN: Unremarkable. PANCREAS: Unremarkable. ADRENAL GLANDS: Unremarkable. KIDNEYS/URETERS: Unremarkable. BOWEL: No bowel obstruction. No significant bowel wall thickening. No localized inflammation. Prominent small bowel fluid. APPENDIX: No evidence of appendicitis. FREE FLUID: Small amount of pelvic free fluid. FREE AIR: None. LYMPH NODES: No pathologic appearing adenopathy. PERITONEUM, RETROPERITONEUM AND MESENTERY: Otherwise unremarkable. VASCULATURE: Unremarkable as imaged. ABDOMINAL WALL: Unremarkable. PELVIS: Unremarkable bladder. Right ovarian cyst measuring 3 cm OSSEOUS AND SOFT TISSUE STRUCTURES: No acute skeletal findings. CT/Abdomen/Pelvis W IV Cont ONLY IMPRESSION: Prominent small bowel fluid, a nonspecific finding which can be seen with enteritis. Right ovarian cyst. Individualized dose optimization techniques were used for this CT. at 2342 Reported and signed by: Yisel Moore MD Electronically Signed: Yisel Moore MD at 23:42 EST Tel , Service support ,
--- NOTE | 2020-01-14 22:42 | ED.DCSUM_ITS ---
History of Present Illness Chief Complaint: Diarrhea Detail of Chief Complaint: Diarrhea, blood in stool, cold symptoms Informant: Patient Onset: Today Current Severity: Moderate Maximum Severity: Moderate Narrative: Patient presents with multiple complaints. She states since this morning she has had diarrhea with some blood mixed with the stool. She also complains of cold symptoms including cough with yellow sputum, subjective fever, body aches. Patient denies known history of Crohn's or ulcerative colitis, but states she did have's surgery at in [place] last fall for some kind of a benign tumor in her lower abdomen. She is unsure if this was from the bowel or ovary. - Past Medical History (1) Asthma Status: Chronic (2) Diet-controlled diabetes mellitus Status: Chronic (3) alcohol syndrome Status: Chronic (4) GERD (gastroesophageal reflux disease) Status: Chronic Past Medical History - Allergies and Home Meds Allergies/Adverse Reactions: Allergies etonogestrel [From Nexplanon] Allergy (Verified 01/14/20 21:21) Swelling lidocaine Allergy (Verified 01/14/20 21:21) Anaphylaxis mepivacaine [From Carbocaine] Allergy (Verified 01/14/20 21:21) Swelling mushroom Allergy (Verified 01/14/20 21:21) Other procaine [From Novocain] Allergy (Verified 01/14/20 21:21) Unknown adhesive tape Adverse Reaction (Verified 01/14/20 21:21) Rash Primary Care Physician: Galdino Nam MD [Primary Care Provider] - Prior records reviewed: Yes Surgical History: no surgical history Smoking Status: Current every day smoker Review of Systems General: Reports: Fever, Subjective Eyes: Denies: Visual changes - bilaterally ENT: Denies: Bilateral ear pain Cardiovascular: Denies: Chest pain Respiratory: Reports: Dyspnea, Cough, Sputum Gastrointestinal: Reports: Diarrhea. Denies: Vomiting Genitourinary: Denies: Dysuria Musculoskeletal: Reports: Extremity Pain - Recent left ankle sprain Skin: Denies: Rash Neurological: Denies: Headache Hematologic: Denies: Easy bruising Allergy: Denies: Uticaria Physical Exam Vital Signs/Narrative: Vital Signs Temp Pulse Resp BP Pulse Ox 01/14/20 22:18 16 01/14/20 21:21 97.5 F L 90 16 133/22 H 99 Inital Vital Signs reviewed: Yes General: Well nourished, Well developed Head: Normocephalic ENT: Moist mucous membranes Neck: Supple Cardiovascular: Regular rate, Regular rhythm Respiratory: No distress, CTA bilaterally Abdomen: Soft, Tender - Mild lower abdominal tenderness. No guarding or rebo und., Hypoactive bowel sounds Extremities: - - Left ankle is in a walking boot. She has mild tenderness. No significant edema. Neurological: Alert, Oriented x3 Psychological: Normal affect Diagnostic/Tx/Re-eval Impressions Chest X-Ray 01/14/20 22:00 IMPRESSION: No acute cardiopulmonary abnormality. at 2213 Reported and signed by: Yisel Moore MD Electronically Signed: Yisel Moore MD at 22:13 EST Tel , Service support , Abdomen/Pelvis CT 01/14/20 22:41 IMPRESSION: Prominent small bowel fluid, a nonspecific finding which can be seen with enteritis. Right ovarian cyst. Individualized dose optimization techniques were used for this CT. at 4382 Reported and signed by: Yisel Moore MD Electronically Signed: Yisel Moore MD at 23:42 EST Tel , Service support , 01/14/20 22:00 Chest PA and Lateral [RAD] Stat 01/14/20 22:41 Abdomen/Pelvis W IV Cont ONLY [CT] Stat 01/14/20 21:57 Mucosa - Nasopharyngeal Influenza Types A,B Direct FA (FAN) - Final Laboratory Results 01/14/20 01/14/20 01/14/20 21:45 21:45 21:45 WBC 8.0 RBC 4.62 Hgb 12.8 Hct 39.5 MCV 85.5 MCH 27.7 MCHC 32.4 RDW Std Deviation 43.3 RDW Coeff of Phi 13.8 Plt Count 314 MPV 9.3 Immature Gran % (Auto) 0.400 Neut % (Auto) 66.6 Lymph % (Auto) 22.9 [place] % (Auto) 7.5 Eos % (Auto) 2.0 Baso % (Auto) 0.6 Absolute Neuts (auto) 5.4 Absolute Lymphs (auto) 1.84 Nucleated RBC % 0 Sodium 144 Potassium 3.7 Chloride 116 H Carbon Dioxide 23.0 Anion Gap 5 BUN 8 Creatinine 0.76 Estim Creat Clear Calc 112.91 Est GFR (MDRD) Af Amer 122 Est GFR (MDRD) Non-Af 101 BUN/Creatinine Ratio 10.5 Glucose 102 Calcium 8.7 Serum , Qual NEGATIVE Urine Color Urine Clarity Urine pH Ur Specific [place] Urine Protein Urine Glucose (UA) Urine Ketones Urine Occult Blood Urine Nitrite Urine Bilirubin Urine Urobilinogen Ur Leukocyte Esterase Urine RBC Urine WBC Ur Squamous Epith Cells Amorphous Sediment Urine Bacteria Urine Mucus 01/14/20 21:54 WBC RBC Hgb Hct MCV MCH MCHC RDW Std Deviation RDW Coeff of Phi Plt Count MPV Immature Gran % (Auto) Neut % (Auto) Lymph % (Auto) [place] % (Auto) Eos % (Auto) Baso % (Auto) Absolute Neuts (auto) Absolute Lymphs (auto) Nucleated RBC % Sodium Potassium Chloride Carbon Dioxide Anion Gap BUN Creatinine Estim Creat Clear Calc Est GFR (MDRD) Af Amer Est GFR (MDRD) Non-Af BUN/Creatinine Ratio Glucose Calcium Serum , Qual Urine Color Yellow Urine Clarity Cloudy Urine pH 7.0 Ur Specific [place] 1.015 Urine Protein Negative Urine Glucose (UA) Normal Urine Ketones Negative Urine Occult Blood Negative Urine Nitrite Negative Urine Bilirubin Negative Urine Urobilinogen Normal Ur Leukocyte Esterase 25 H Urine RBC 0 SEEN Urine WBC 0-5 SEEN Ur Squamous Epith Cells 10-25 SEEN Amorphous Sediment 3+ Urine Bacteria 3+ Urine Mucus 0 SEEN - Medical Decision Making Laboratory work-up is pursued. No significant abnormalities noted. Because the patient does report blood in her stool with some unknown surgery that took place last fall CT scan was obtained. She has evidence of enteritis but no wall thickening or acute inflammatory changes. Patient's influenza swab is negative. Chest x-ray is clear. Patient be given Zofran and Bentyl for home. She is to follow-up with her GI specialist at in [place]. ED Disposition - Plan for ED Patient: Disposition: Home or Assisted Living Diagnosis: Diarrhea Instructions: DIARRHEA, Viral (Child) (Adult) Prescriptions: Dicyclomine HCl [Bentyl] 20 mg PO TIDAC #20 cap Transmission Status: Pending to [facility] #30 Ondansetron [Zofran Odt] 4 mg PO Q8H PRN PRN #10 tab PRN Reason: Nausea Transmission Status: Pending to [facility] #30 Referrals: Galdino Nam MD [Primary Care Provider] - 1 Week if not improving Additional Instructions: Follow-up with your GI specialist at
[2020-01-15 00:53] VITALS: BP 115/76; PULSE 71; RESP 16
[2020-01-15] MEDS: Dicyclomine 10 MG Capsule 20 MG PO (00:55)
[2020-01-15] MEDS: Ondansetron ODT 4 MG Tablet PO (00:55)
== END 2020-01-15 00:56 | disposition home or self-care (01) ==
PROVIDERS: Emergency Provider Emergency Medicine; PCP Family Medicine
DX: R19.7 Diarrhea, unspecified (principal); N83.201 Unspecified ovarian cyst, right side; J45.909 Unspecified asthma, uncomplicated; E11.9 Type 2 diabetes mellitus without complications; K21.9 Gastro-esophageal reflux disease without esophagitis; F17.200 Nicotine dependence, unspecified, uncomplicated; Z79.51 Long term (current) use of inhaled steroids; Z79.899 Other long term (current) drug therapy
CPT/HCPCS: 71046; 74177; 80048; 81001; 84703; 85025; 87804; 99284; Q9967; A4216

== ENCOUNTER 2020-01-30 04:31 | Emergency (ER) | payer MEDICAID, SELFPAY ==
[2020-01-30 04:32] VITALS: BP 110/80; PULSE 74; RESP 16; TEMP 37.1; O2SAT 98; BMI 25.4
--- NOTE | 2020-01-30 05:47 | ED.VISSUMM ---
- ER Visit Summary Date of Service: 01/30/20 Chief Complaint: Found unresponsive History of Present Illness: The patient is a 24 F presenting per EMS after being found unresponsive by friends. She was reportedly unresponsive and not breathing. She was given 2 mg of nasal Narcan per EMS. She then awoke and started breathing. She denies drug use. She states she takes medication for her epilepsy but denies any other drug use. She denies suicidal thoughts or attempt. Denies trauma. She has no complaints at this time. Physical Examination: Vitals are stable. Patient is afebrile. Alert no acute distress. HEENT exam is unremarkable. Neck is supple. No meningismus Lungs are clear and equal bilaterally. Heart is regular rate and rhythm. Abdomen is soft nontender nondistended. Extremities are unremarkable. Skin is warm and dry. No focal neurologic deficit. Remainder of exam is unremarkable. Emergency Department Course and Treatment: Urinalysis was obtained due to cloudy urine on tox screen. This shows 10-25 white blood cells, 10-25 red blood cells, 3+ bacteria. Urine culture was sent. She was started on Bactrim. Urine tox is negative. hCG negative. Patient was observed in the ED. She is resting comfortably with no complaints. She is advised to follow-up with her primary care physician. Advised return to ED for worsening complaints. Disposition: Discharge home Impression: UTI, reported unresponsiveness This note was generated with [employer] dictation software. It may contain incorrect words, spelling, and punctuation that were not noted in review of the chart prior to signing ED Disposition - Plan for ED Patient: Instructions: Understanding Urinary Tract Infections (UTIs) Prescriptions: Smz/Tmp Ds [Bactrim Ds] 1 tab PO BID #14 tab Prescription Printed Referrals: Galdino Nam MD [Primary Care Provider] -
[2020-01-30 06:13] LABS: Mucous, Urine 0 SEEN /hpf (<or=2+)
[2020-01-30 06:14] LABS: Internal QC Validated? YES +Cl - CLEAR BKGD; Pregnancy, Urine Negative Negative
[2020-01-30 06:17] VITALS: BP 105/76; PULSE 68; RESP 18; O2SAT 96
[2020-01-30 06:17] LABS: Color, Urine Yellow (Yellow); Glucose, Dipstick Normal (Normal); Ketone-Dipstick Negative (Negative); Leukocyte Esterase-Dipstick Negative /ul (Negative); Nitrite-Dipstick Negative (Negative); Occult Blood-Urine 250 /ul (Negative); Protein-Dipstick 15 mg/dl (Negative); Specific Gravity, Urine 1.015 (1.002-1.030); Urine Bilirubin Dipstick Negative (Negative); Urine Clarity Cloudy (Clear); Urine Urobilinogen Normal (Normal)
[2020-01-30 06:23] LABS: Red Blood Cells-Urine 10-25 SEEN /hpf (0-5); White Blood Cells 10-25 SEEN /hpf (0-5)
[2020-01-30 06:24] LABS: Amorphous Sediment 1+; Bacteria 3+ /hpf (None Seen); Squamous Epithelial Cells - UA 5-10 SEEN /hpf (5-10); Yeast-Urine RARE /hpf (None Seen)
[2020-01-30 06:39] LABS: Amphetamine Urine VISTA NEGATIVE (<1000 ng/mL); Barbiturate Urine VISTA NEGATIVE (< 200 ng/mL); Benzodiazepine Urine VISTA NEGATIVE (< 200 ng/mL); Cocaine Urine VISTA NEGATIVE (< 300 ng/mL); Ecstacy Urine VISTA NEGATIVE (< 500 ng/mL); Methadone Urine VISTA NEGATIVE (< 300 ng/mL); PCP Urine VISTA NEGATIVE (< 25 ng/mL); THC Urine VISTA NEGATIVE (< 50 ng/mL); Vista UDS pH Range 7
--- NOTE | 2020-01-30 06:57 | ED.DEP ---
ED Disposition - Plan for ED Patient: Instructions: Understanding Urinary Tract Infections (UTIs) Prescriptions: Smz/Tmp Ds [Bactrim Ds] 1 tablet PO BID #14 tablet Referrals: Galdino Nam MD [Primary Care Provider] -
[2020-01-30] MEDS: Smz/Tmp Ds Tablet 1 TABLET PO (07:15)
[2020-01-30 07:16] VITALS: BP 106/85; PULSE 78; RESP 16; O2SAT 99
== END 2020-01-30 07:18 | disposition home or self-care (01) ==
LOC: ED 04:54
PROVIDERS: Emergency Provider Emergency Medicine; PCP Family Medicine
DX: R55 Syncope and collapse (principal); N39.0 Urinary tract infection, site not specified; G40.909 Epilepsy, unspecified, not intractable, without status epilepticus; Z79.899 Other long term (current) drug therapy; Z72.0 Tobacco use
CPT/HCPCS: 80307; 81001; 81025; 87086; 87088; 99284

== ENCOUNTER 2020-03-16 21:32 | Emergency (ER) | payer MEDICAID, SELFPAY ==
[2020-03-16 21:35] VITALS: BP 120/74; PULSE 82; RESP 18; TEMP 36.7; O2SAT 99; BMI 29.6
--- NOTE | 2020-03-16 22:09 | ED.VIS.GEN ---
History of Present Illness Chief Complaint: Seizure Informant: Patient Onset: Today Context: Sudden Onset Narrative: Patient is a 24-year-old female with history of depression/anxiety, PTSD, migraines, developmental delay/ alcohol syndrome and seizure disorder. Patient is on Topamax for seizures. Per report patient had a 1 minute episode of generalized body shaking. It resolved on its own. She was transferred by EMS. Patient states she has been having more seizures lately. Her last seizure was a week ago. Patient states she was recently admitted to [facility] where they monitored her for seizures. Chart review shows that patient was admitted on 02/22/2020 for seizure work-up and EEG. Does that patient seizure history seem to be associated with stress. EEG for 24 hours showed 2 typical events with no EEG correlation. 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 Past Medical History - Allergies and Home Meds Allergies/Adverse Reactions: Allergies amoxicillin Allergy (Verified 03/16/20 21:42) Anaphylaxis etonogestrel [From Nexplanon] Allergy (Verified 03/16/20 21:42) Swelling lidocaine Allergy (Verified 03/16/20 21:42) Anaphylaxis mepivacaine [From Carbocaine] Allergy (Verified 03/16/20 21:42) Swelling mushroom Allergy (Verified 03/16/20 21:42) Other procaine [From Novocain] Allergy (Verified 03/16/20 21:42) Unknown adhesive tape Adverse Reaction (Verified 03/16/20 21:42) Rash Primary Care Physician: Galdino Nam MD [Primary Care Provider] - Past Medical History: - - depression/anxiety, PTSD, migraines, developmental delay/ alcohol syndrome, deafness and psychiatric nonepileptic seizures Surgical History: no surgical history Smoking Status: Current every day smoker Review of Systems General: Denies: Chills, Fever, Sweats Eyes: Denies: Visual changes - bilaterally, Diplopia ENT: Denies: Rhinorrhea, Sore throat Cardiovascular: Denies: Chest pain, Palpitations Respiratory: Denies: Dyspnea, Cough, Dyspnea on exertion Gastrointestinal: Reports: Abdominal pain - chronic . Denies: Nausea, Vomiting, Diarrhea, Melena, Hematochezia Genitourinary: Denies: Dysuria, Hematuria, Frequency Musculoskeletal: Denies: Back pain, Extremity Pain Skin: Denies: Rash, Wounds Neurological: Reports: Headache, - - seizure activity . Denies: Weakness, Numbness Physical Exam Vital Signs/Narrative: Vital Signs Temp Pulse Resp BP Pulse Ox 03/16/20 21:35 98.0 F 82 18 120/74 99 Inital Vital Signs reviewed: Yes General: Well nourished, Well developed, No Acute Distress Head: Normocephalic, Atraumatic Eyes: Perrl, EOMI ENT: Moist mucous membranes, No rhinorrhea, TM's clear Neck: Supple, Nontender Cardiovascular: Regular rate, Regular rhythm, No murmurs Respiratory: No distress, CTA bilaterally, Chest nontender Abdomen: Soft, Nondistended, Normal bowel sounds, No masses, Tender - mild, diffuse lower abdomen . Negative for: Guarding, Rebound tenderness Back: Nontender, Normal Inspection Extremities: Nontender, No edema Skin: Normal color, No rash Neurological: Alert, Cranial nerves II-XII grossly intact, Normal Strength, Normal Sensation, Disoriented, - - Slow to answer questions initially but answers them appropriately Psychological: Normal affect, Normal Mood Diagnostic/Tx/Re-eval - Medical Decision Making Since evaluated after seizure-like activity. Patient has a history of what sounds like pseudoseizures. She recently had a 24-hour EEG at the [facility] last month which did not show any elliptic seizures. Patient is initially mildly disoriented but returns to her baseline after observation in the emergency room. She is well-appearing with normal vital signs. She is afebrile with no nuchal rigidity. She has a normal neurologic exam. Patient does have a history of this chronic abdominal pain. She is been seen in the ER multiple times and most recently had normal CT 2 months ago. Patient states her abdominal pain is at her baseline. Chart review shows that patient had exploratory laparoscopy as well as hysteroscopy for abnormal uterine bleeding and lysis of adhesions on 06/21/2019. There is no mention of any pelvic mass which patient states that she had. I suspect her abdominal pain is from adhesions. She only takes [id number] Tylenol or ibuprofen for it. She given a dose of IV Toradol for her headache as well as her abdominal pain. Given the patient's already had abdominal pain worked up and is unchanged from her baseline over the last year I do not think a repeat work-up is indicated at this time. Patient is counseled on signs and symptoms requiring return to the emergency room. Patient verbalizes agreement and understand this plan. Patient discharged home in stable and improved condition. ED Disposition - Plan for ED Patient: Disposition: Home or Assisted Living Diagnosis: Breakthrough seizure Instructions: ED Seizure Recurrent Adult Referrals: Galdino Nam MD [Primary Care Provider] -
[2020-03-16] MEDS: Ketorolac 15 MG/ML Vial IV (23:28)
[2020-03-16 23:32] VITALS: BP 110/80; PULSE 70; RESP 16; O2SAT 100
== END 2020-03-16 23:32 | disposition home or self-care (01) ==
PROVIDERS: Emergency Provider Emergency Medicine; PCP Family Medicine
DX: G40.89 Other seizures (principal); F43.10 Post-traumatic stress disorder, unspecified; F32.9 Major depressive disorder, single episode, unspecified; F41.9 Anxiety disorder, unspecified; F17.200 Nicotine dependence, unspecified, uncomplicated; Z79.899 Other long term (current) drug therapy
CPT/HCPCS: 96374; 99284

== ENCOUNTER 2020-04-13 20:53 | Emergency (ER) | payer MEDICAID, SELFPAY ==
[2020-04-13 20:54] VITALS: BP 127/66; PULSE 106; RESP 15; TEMP 37.8; O2SAT 96; BMI 23.7
--- NOTE | 2020-04-13 21:30 | ED.DCSUM_ITS ---
- ER Visit Summary Date of Service: 04/13/20 Chief Complaint: Back, stomach, rib pain, migraine History of Present Illness: The patient is a 24 F who presents with the above symptoms. She states that the symptoms started yesterday. She has pain in her back in the lumbar region. It radiates forward to her stomach and rib. She also complains of a migraine. Nothing makes this pains better or worse. She states that she is on a new arthritis medication but does not know the name. She is also on an antibiotic but she does not know the name of that. She is taking this for a UTI. She still is having some dysuria. She admits to nausea. No fevers at home. No exposures to anybody with coronavirus Physical Examination: Vital signs reviewed. HEENT exam unremarkable. Heart is tachycardic and regular rhythm without murmurs. Lungs are clear to auscultation. Abdomen is soft with mild diffuse tenderness. There is no guarding or rebound tenderness. Back exam is nontender extremities reveal no edema. Skin exam normal. Neurologic exam normal. Test Results: Patient has a white blood cell count of 13.2, chloride 110. Glucose 131. He has 500 leukocytes and 5-10 white blood cells Emergency Department Course and Treatment: Patient was given IV fluids, Toradol and Zofran. She states that her pain was a little bit better but not resolved. I give her one [place] here. I will send her home with naproxen for pain. I will give her a dose of IV Rocephin. She will continue her antibiotics at home. I feel this is all likely due to urinary tract infection. She has a normal neurologic exam. She will need to follow-up with her PCP. Treatment Plan: [] Disposition: Discharge Impression: UTI This note was generated with [employer] dictation software. It may contain incorrect words, spelling, and punctuation that were not noted in review of the chart prior to signing ED Disposition - Plan for ED Patient: Disposition: Home or Assisted Living Instructions: ED CYSTITIS Female Adult Prescriptions: Naproxen [Naprosyn] 500 mg PO BID PRN #20 tab Transmission Status: Pending to [facility] #30 Referrals: Galdino Nam MD [Primary Care Provider] -
[2020-04-13] MEDS: 0.9% Normal Saline 1,000 ML 999 ML IV (21:33)
[2020-04-13] MEDS: Ketorolac 30 MG/ML Syringe IV (21:33)
[2020-04-13 21:44] LABS: Bacteria 0 SEEN /hpf (None Seen); Mucous, Urine 0 SEEN /hpf (<or=2+); Red Blood Cells-Urine 0 SEEN /hpf (0-5)
[2020-04-13 21:45] LABS: Absolute Lymphocyte Count 0.78 X10^3/uL (0.83-4.51); Absolute Neutrophil Count 11.5 X10^3/uL (2.0-7.7); Basophil# 0.04 X10^3/uL; Basophil% 0.3 % (0-1); Hematocrit 40.8 % (37-47); Hemoglobin 13.1 g/dL (12.0-15.0); Lymphocyte # 0.78 X10^3/ul (4.0); Lymphocyte % 5.9 % (19-41); Mean Corp Hgb Conc 32.1 g/dL (32-36); Mean Corpuscular Hgb 27.6 pg (27.0-32.0); Mean Corpuscular Volume 86.1 fL (81-99); Mean Platelet Vol. 9.9 fl (6.2-12.0); Monocyte# 0.85 X10^3/uL; Monocyte% 6.4 % (0-10); NRBC Flagged by Analyzer 0 % (0-5); Neutrophil # 11.48 X10^3/uL (2.7-7.7); Neutrophil % 86.9 % (47-70); Platelet Count 219 K/mm3 (150-450); RBC Distribution Width CV 12.9 % (11.6-14.6); RBC Distribution Width SD 40.4 fl (35.1-43.9); Red Blood Count 4.74 M/mm3 (4.2-5.4); White Blood Count 13.2 K/mm3 (4.4-11.0)
[2020-04-13 21:48] LABS: Color, Urine Yellow (Yellow); Glucose, Dipstick Normal (Normal); Ketone-Dipstick 50 mg/dl (Negative); Leukocyte Esterase-Dipstick 500 /ul (Negative); Nitrite-Dipstick Negative (Negative); Occult Blood-Urine 10 /ul (Negative); Protein-Dipstick 30 mg/dl (Negative); Urine Bilirubin Dipstick 3 mg/dL (Negative); Urine Clarity Cloudy (Clear); Urine Urobilinogen 1 mg/dl (Normal)
[2020-04-13 21:56] LABS: Internal QC Validated? YES +Cl - CLEAR BKGD; Pregnancy, Urine Negative Negative
[2020-04-13 21:57] LABS: Anion Gap 10 (5-15); BUN 9 mg/dL (7-18); BUN/Creat Ratio 11.8 RATIO (10-20); Calcium,Total 8.9 mg/dL (8.5-10.1); Chloride 110 mmol/L (98-107); Creatinine, Serum 0.76 mg/dL (0.55-1.02); EST Glomerular Filtration Rate 100 mL/min (>60); Est Glom Filt Rate - Afr Amer 121 mL/min (>60); Estimated Creatinine Clearance 112.91 ml/min; Glucose 131 mg/dL (74-106); Potassium 3.3 mmol/L (3.5-5.1); Sodium Level 139 mmol/L (136-145)
[2020-04-13 22:04] LABS: Squamous Epithelial Cells - UA 10-25 SEEN /hpf (5-10); White Blood Cells 5-10 SEEN /hpf (0-5)
[2020-04-13] MEDS: Ceftriaxone 1 GM/50 ML BAG IV (22:24)
[2020-04-13] MEDS: HYDROcodone Bitartrate/Apap 5/325 Tablet PO (22:44)
== END 2020-04-13 22:50 | disposition home or self-care (01) ==
PROVIDERS: Emergency Provider Emergency Medicine; PCP Family Medicine
DX: N39.0 Urinary tract infection, site not specified (principal); M19.90 Unspecified osteoarthritis, unspecified site; E11.9 Type 2 diabetes mellitus without complications; J45.909 Unspecified asthma, uncomplicated; Z72.0 Tobacco use; Z79.2 Long term (current) use of antibiotics
CPT/HCPCS: 80048; 81001; 81025; 85025; 96361; 96365; 96375; 99282; J7030

== ENCOUNTER 2020-06-16 23:44 | Emergency (ER) | payer MEDICAID, SELFPAY ==
[2020-06-16 23:45] VITALS: BP 122/66; PULSE 97; RESP 16; TEMP 36.3; O2SAT 98; BMI 25.0
--- NOTE | 2020-06-16 23:55 | ED.VIS.GEN ---
History of Present Illness Chief Complaint: Asthma Informant: Patient Narrative: Patient stated she started having an asthma flareup with wheezing tonight. She felt fine prior to night. No trigger that she can think of. She used her albuterol and nebulizer with moderate leaf of symptoms. She has not had a recent asthma flareup. No fevers or chills. Denies any other symptoms other than mild cough just tonight. Current severity is mild - Past Medical History (1) Asthma Status: Chronic (2) Diet-controlled diabetes mellitus Status: Chronic (3) alcohol syndrome Status: Chronic (4) GERD (gastroesophageal reflux disease) Status: Chronic Past Medical History - Allergies and Home Meds Allergies/Adverse Reactions: Allergies amoxicillin Allergy (Verified 06/16/20 23:47) Anaphylaxis etonogestrel [From Nexplanon] Allergy (Verified 06/16/20 23:47) Swelling lidocaine Allergy (Verified 06/16/20 23:47) Anaphylaxis mepivacaine [From Carbocaine] Allergy (Verified 06/16/20 23:47) Swelling mushroom Allergy (Verified 06/16/20 23:47) Other procaine [From Novocain] Allergy (Verified 06/16/20 23:47) Unknown adhesive tape Adverse Reaction (Verified 06/16/20 23:47) Rash Primary Care Physician: Galdino Nam MD [Primary Care Provider] - Prior records reviewed: Yes Past Medical History: - - See problem list Surgical History: no surgical history Lives: With Family Smoking Status: Current every day smoker Alcohol: None Drugs: None Review of Systems General: Denies: Chills, Fever, Sweats Eyes: Denies: Visual changes - bilaterally, Diplopia ENT: Denies: Rhinorrhea, Sore throat Cardiovascular: Denies: Chest pain, Palpitations Respiratory: Reports: Dyspnea, Cough. Denies: Dyspnea on exertion Gastrointestinal: Denies: Abdominal pain, Nausea, Vomiting, Diarrhea, Melena, Hematochezia Genitourinary: Denies: Dysuria, Hematuria, Frequency Musculoskeletal: Denies: Back pain, Extremity Pain Skin: Denies: Rash, Wounds Neurological: Denies: Headache, Weakness, Numbness Physical Exam Vital Signs/Narrative: Vital Signs Temp Pulse Resp BP Pulse Ox 06/16/20 23:45 97.3 F L 97 16 122/66 H 98 General: Well nourished, Well developed, No Acute Distress Head: Normocephalic, Atraumatic Eyes: Perrl, EOMI ENT: Moist mucous membranes, No rhinorrhea Neck: Supple, Nontender Cardiovascular: Regular rate, Regular rhythm, No murmurs Respiratory: No distress, CTA bilaterally, Chest nontender Abdomen: Soft, Nontender, Nondistended, Normal bowel sounds Back: Nontender, Normal Inspection Extremities: Nontender, No edema Skin: Normal color, No rash Neurological: Alert, Oriented x3, Cranial nerves II-XII grossly intact, Normal Strength, Normal Sensation Psychological: Normal affect, Normal Mood Diagnostic/Tx/Re-eval - Medical Decision Making Patient given prednisone. She is resting comfortably. I feel she has a mild asthma exacerbation. I do not feel she has coronavirus. I do not feel she needs imaging. Given prednisone for home for the next 5 days. We will continue her nebulizer and albuterol as needed. ED Disposition - Plan for ED Patient: Diagnosis: Acute asthma exacerbation, Asthma Instructions: ED REACTIVE AIRWAY DISEASE Adult Prescriptions: Prednisone [Deltasone] 40 mg PO DAILY #10 tab Transmission Status: Pending to [facility] #30 Referrals: Galdino Nam MD [Primary Care Provider] -
[2020-06-17] MEDS: predniSONE 20 MG Tablet 60 MG PO (00:09)
[2020-06-17 00:11] VITALS: RESP 17
== END 2020-06-17 00:19 | disposition home or self-care (01) ==
LOC: ED 06-17 00:02
PROVIDERS: Emergency Provider Emergency Medicine; PCP Family Medicine
DX: J45.901 Unspecified asthma with (acute) exacerbation (principal); K21.9 Gastro-esophageal reflux disease without esophagitis; F17.200 Nicotine dependence, unspecified, uncomplicated; Z79.899 Other long term (current) drug therapy
CPT/HCPCS: 99282

== ENCOUNTER 2020-07-04 16:12 | Emergency (ER) | payer MEDICAID, SELFPAY ==
[2020-07-04 16:13] VITALS: BP 121/63; PULSE 94; RESP 14; TEMP 36.4; O2SAT 98; BMI 25.5
--- NOTE | 2020-07-04 17:07 | ED.DCSUM_ITS ---
History of Present Illness Chief Complaint: Female C/O Informant: Patient Onset: Days Context: Gradual Onset Current Severity: Moderate Maximum Severity: Moderate Narrative: Patient presents with burning and itching to the vaginal and rectal area for the past 1 week. She does have some mild dysuria. She denies any significant discharge. She states she has been using Monistat [id number] assuming that it was a yeast infection. She is on a Depakote shot and does not have regular menstrual cycles. Her last shot was administered in early May. - Past Medical History (1) Asthma Status: Chronic (2) Diet-controlled diabetes mellitus Status: Chronic (3) alcohol syndrome Status: Chronic (4) GERD (gastroesophageal reflux disease) Status: Chronic Past Medical History - Allergies and Home Meds Allergies/Adverse Reactions: Allergies amoxicillin Allergy (Verified 07/04/20 16:16) Anaphylaxis etonogestrel [From Nexplanon] Allergy (Verified 07/04/20 16:16) Swelling lidocaine Allergy (Verified 07/04/20 16:16) Anaphylaxis mepivacaine [From Carbocaine] Allergy (Verified 07/04/20 16:16) Swelling mushroom Allergy (Verified 07/04/20 16:16) Other procaine [From Novocain] Allergy (Verified 07/04/20 16:16) Unknown adhesive tape Adverse Reaction (Verified 07/04/20 16:16) Rash Primary Care Physician: Galdino Nam MD [Primary Care Provider] - Prior records reviewed: Yes Surgical History: no surgical history Smoking Status: Current every day smoker Review of Systems General: Denies: Chills, Fever Eyes: Denies: Visual changes - bilaterally ENT: Denies: Bilateral ear pain Cardiovascular: Denies: Chest pain Respiratory: Denies: Dyspnea, Cough Gastrointestinal: Denies: Abdominal pain, Nausea, Vomiting, Diarrhea Genitourinary: Reports: Dysuria Musculoskeletal: Denies: Extremity Pain Skin: Denies: Rash Neurological: Denies: Headache Hematologic: Denies: Easy bruising, Easy bleeding Allergy: Denies: Uticaria Physical Exam Vital Signs/Narrative: Vital Signs Temp Pulse Resp BP Pulse Ox 07/04/20 16:13 97.6 F L 94 14 121/63 H 98 Inital Vital Signs reviewed: Yes General: Well nourished, Well developed Head: Normocephalic ENT: Moist mucous membranes Neck: Supple Cardiovascular: Regular rate, Regular rhythm Respiratory: No distress, CTA bilaterally Abdomen: Soft, Nontender : - - No vaginal discharge noted on external exam. No lesions or erythema. Rectal examination is unremarkable. Skin: Normal color Neurological: Alert, Oriented x3 Psychological: Normal affect Diagnostic/Tx/Re-eval Laboratory Results 07/04/20 07/04/20 17:45 17:45 Urine Color Yellow Urine Clarity Clear Urine pH 5.0 Ur Specific [place] 1.020 Urine Protein Negative Urine Glucose (UA) Normal Urine Ketones 5 H Urine Occult Blood Negative Urine Nitrite Negative Urine Bilirubin Negative Urine Urobilinogen Normal Ur Leukocyte Esterase Negative Urine RBC 0 SEEN Urine WBC 0 SEEN Ur Squamous Epith Cells 0 SEEN Urine Bacteria 0 SEEN Urine Mucus 0 SEEN Urine Test Negative - Medical Decision Making Patient has no obvious external signs of yeast infection, however she has been using topical Monistat. She is given a single dose of Diflucan here. Urinalysis is clean. Patient is scheduled for colonoscopy later this month. She was advised to call her surgeon and see if that can be moved up if she continues to have symptoms. She is also to follow-up with her NATIONAL EXPANSION RECRUITER for further exam. ED Disposition - Plan for ED Patient: Disposition: Home or Assisted Living Diagnosis: Perineal pain in female Instructions: Vaginal Infection: Yeast (Candidiasis) Referrals: Galdino Nam MD [Primary Care Provider] - Additional Instructions: Follow-up with your NATIONAL EXPANSION RECRUITER and surgeon as discussed.
[2020-07-04 17:54] LABS: Bacteria 0 SEEN /hpf (None Seen); Mucous, Urine 0 SEEN /hpf (<or=2+); Red Blood Cells-Urine 0 SEEN /hpf (0-5); Squamous Epithelial Cells - UA 0 SEEN /hpf (5-10); White Blood Cells 0 SEEN /hpf (0-5)
[2020-07-04 17:59] LABS: Internal QC Validated? YES +Cl - CLEAR BKGD; Pregnancy, Urine Negative Negative
[2020-07-04 18:04] LABS: Color, Urine Yellow (Yellow); Glucose, Dipstick Normal (Normal); Ketone-Dipstick 5 mg/dl (Negative); Leukocyte Esterase-Dipstick Negative /ul (Negative); Nitrite-Dipstick Negative (Negative); Occult Blood-Urine Negative /ul (Negative); Protein-Dipstick Negative (Negative); Urine Bilirubin Dipstick Negative (Negative); Urine Clarity Clear (Clear); Urine Urobilinogen Normal (Normal)
[2020-07-04] MEDS: Fluconazole 100 MG Tablet 200 MG PO (18:57)
== END 2020-07-04 19:00 | disposition home or self-care (01) ==
PROVIDERS: Emergency Provider Emergency Medicine; PCP Family Medicine
DX: R10.2 Pelvic and perineal pain (principal); F17.200 Nicotine dependence, unspecified, uncomplicated; J45.909 Unspecified asthma, uncomplicated; K21.9 Gastro-esophageal reflux disease without esophagitis
CPT/HCPCS: 81001; 81025; 99283

== ENCOUNTER 2020-07-29 17:12 | Emergency (ER) | payer MEDICAID, SELFPAY ==
[2020-07-29 17:13] VITALS: BP 128/79; PULSE 97; RESP 15; TEMP 36.2; O2SAT 99; BMI 26.2
[2020-07-29 18:55] LABS: Mucous, Urine 0 SEEN /hpf (<or=2+); Red Blood Cells-Urine 0 SEEN /hpf (0-5); White Blood Cells 0 SEEN /hpf (0-5)
[2020-07-29 19:05] LABS: Absolute Lymphocyte Count 2.72 X10^3/uL (0.83-4.51); Basophil# 0.05 X10^3/uL; Basophil% 0.6 % (0-1); Eosinophils% 1.2 % (0-5); Hematocrit 43.7 % (37-47); Hemoglobin 14.3 g/dL (12.0-15.0); Lymphocyte # 2.72 X10^3/ul (4.0); Lymphocyte % 32.2 % (19-41); Mean Corp Hgb Conc 32.7 g/dL (32-36); Mean Corpuscular Hgb 28.4 pg (27.0-32.0); Mean Corpuscular Volume 86.7 fL (81-99); Mean Platelet Vol. 9.4 fl (6.2-12.0); Monocyte# 0.56 X10^3/uL; Monocyte% 6.6 % (0-10); NRBC Flagged by Analyzer 0 % (0-5); Neutrophil # 4.98 X10^3/uL (2.7-7.7); Neutrophil % 58.9 % (47-70); Platelet Count 363 K/mm3 (150-450); RBC Distribution Width CV 13.2 % (11.6-14.6); RBC Distribution Width SD 41.3 fl (35.1-43.9); Red Blood Count 5.04 M/mm3 (4.2-5.4); White Blood Count 8.5 K/mm3 (4.4-11.0)
[2020-07-29 19:16] LABS: AST(SGOT) 7 U/L (15-37); Alanine Aminotransfer ALT/SGPT 14 U/L (13-56); Albumin, Serum 4.1 g/dL (3.2-5.0); Alkaline Phosphatase 74 U/L (45-117); Anion Gap 5 (5-15); BUN 9 mg/dL (7-18); Calcium,Total 8.9 mg/dL (8.5-10.1); Chloride 114 mmol/L (98-107); Creatinine, Serum 0.82 mg/dL (0.55-1.02); EST Glomerular Filtration Rate 92 mL/min (>60); Est Glom Filt Rate - Afr Amer 111 mL/min (>60); Estimated Creatinine Clearance 103.76 ml/min; Globulin 4.2 g/dL (2.2-4.2); Glucose 86 mg/dL (74-106); Lipase 233 U/L (73-393); Magnesium 2.4 mg/dL (1.6-2.6); Potassium 3.5 mmol/L (3.5-5.1); Protein, Total 8.3 g/dL (6.4-8.2); Sodium Level 141 mmol/L (136-145)
[2020-07-29 19:25] LABS: Color, Urine Yellow (Yellow); Glucose, Dipstick Normal (Normal); Ketone-Dipstick Negative (Negative); Leukocyte Esterase-Dipstick 25 /ul (Negative); Nitrite-Dipstick Negative (Negative); Occult Blood-Urine Negative /ul (Negative); Protein-Dipstick Negative (Negative); Urine Bilirubin Dipstick Negative (Negative); Urine Clarity Cloudy (Clear); Urine Urobilinogen 4 mg/dl (Normal)
--- NOTE | 2020-07-29 19:27 | ED.RN ---
Called lab for urine results. Tech said they were really behind but she will check on the results.
[2020-07-29 19:36] LABS: Internal QC Validated? YES +Cl - CLEAR BKGD; Pregnancy, Urine Negative Negative
[2020-07-29 20:01] LABS: Bacteria 3+ /hpf (None Seen); Squamous Epithelial Cells - UA 0-5 SEEN /hpf (5-10)
[2020-07-29 20:02] LABS: Amorphous Sediment 3+
[2020-07-29 20:49] VITALS: BP 118/77; PULSE 70; O2SAT 94
[2020-07-29] MEDS: 0.9% Normal Saline 1,000 ML 999 ML IV (21:19)
[2020-07-29] MEDS: Ketorolac 15 MG/ML Vial IV (21:19)
--- NOTE | 2020-07-29 21:48 | ED.VIS.GI ---
History of Present Illness Chief Complaint: Diarrhea Informant: Patient - Abdominal Pain/Flank Pain Onset: Days Context: Gradual Onset Timing: Continuous Quality: Aching Location: - - Lower abdominal - Nausea/Vomiting/Emesis GI Symptom: Negative for: Nausea, Vomiting - Diarrhea/Melena/Hematochezia GI Symptom: Diarrhea Onset: Days Stool Quality: Watery. Negative for: Black, Maroon, SID per rectum Narrative: Patient is a 25-year-old female presenting with persistent diarrhea. Patient had a colonoscopy with Dr. Medina 1 week ago. This was performed because patient was having irregular bowel movements and abdominal pain. She states after the prep she continued to have significant diarrhea and is having 4-5 bowel movements a day. She states it is brown but liquid. She has some mild associated aurora pain that feels like gurgles and sometimes some stabbing pain in her lower abdomen. She is currently on omeprazole. She is not taking anything for the diarrhea. She notes she has been having migraines which she is a history of and has taken Tylenol for it. She denies associated nausea or vomiting. She has any fever or chills. She called the office of Dr. Medina today was told that this can be normal to have continued diarrhea but she decided come to the emergency room for a second opinion. Patient states she is had her headache that is in the back of her head and throbbing in sensation since her colonoscopy as well. It was gradual in onset. Is consistent with her history of migraines. Patient denies any other complaints at this time. She does mention that she was recently treated for trichomonas and does continue to have symptoms. She dates she still having some vaginal discomfort. She notes her partner is also being treated and they have not had intercourse since the treatment is started. Past Medical History - Allergies and Home Meds Allergies/Adverse Reactions: Allergies amoxicillin Allergy (Verified 07/29/20 17:12) Anaphylaxis etonogestrel [From Nexplanon] Allergy (Verified 07/29/20 17:12) Swelling lidocaine Allergy (Verified 07/29/20 17:12) Anaphylaxis mepivacaine [From Carbocaine] Allergy (Verified 07/29/20 17:12) Swelling mushroom Allergy (Verified 07/29/20 17:12) Other procaine [From Novocain] Allergy (Verified 07/29/20 17:12) Unknown adhesive tape Adverse Reaction (Verified 07/29/20 17:12) Rash Primary Care Physician: Galdino Nam MD [Primary Care Provider] - Past Medical History: - - Asthma, GERD, alcohol syndrome Surgical History: no surgical history Smoking Status: Current every day smoker Review of Systems General: Denies: Chills, Fever, Sweats Eyes: Denies: Visual changes - bilaterally, Diplopia ENT: Denies: Rhinorrhea, Sore throat Cardiovascular: Denies: Chest pain, Palpitations Respiratory: Denies: Dyspnea, Cough, Dyspnea on exertion Gastrointestinal: Reports: Abdominal pain. Denies: Nausea, Vomiting, Diarrhea, Melena, Hematochezia Genitourinary: Reports: - - Vaginal irritation. Denies: Dysuria, Hematuria, Frequency Musculoskeletal: Denies: Back pain, Extremity Pain Skin: Denies: Rash, Wounds Neurological: Denies: Headache, Weakness, Numbness Physical Exam Vital Signs/Narrative: Vital Signs Pulse BP Pulse Ox 07/29/20 20:49 70 118/77 94 Inital Vital Signs reviewed: Yes General: Well nourished, Well developed, No Acute Distress Head: Normocephalic, Atraumatic Eyes: Perrl, EOMI ENT: Moist mucous membranes, No rhinorrhea, TM's clear Neck: Supple, Nontender Cardiovascular: Regular rate, Regular rhythm, No murmurs Respiratory: No distress, CTA bilaterally, Chest nontender Abdomen: Soft, Nontender, Nondistended, Normal bowel sounds. Negative for: Guarding, Rebound tenderness Back: Nontender, Normal Inspection. Negative for: CVA tenderness Extremities: Nontender, No edema Skin: Normal color, No rash Neurological: Alert, Oriented x3, Cranial nerves II-XII grossly intact, Normal Strength, Normal Sensation Psychological: Normal affect, Normal Mood Diagnostic/Tx/Re-eval Laboratory Data 07/29/20 07/29/20 07/29/20 18:45 18:45 18:45 WBC 8.5 RBC 5.04 Hgb 14.3 Hct 43.7 MCV 86.7 MCH 28.4 MCHC 32.7 RDW Std Deviation 41.3 RDW Coeff of Phi 13.2 Plt Count 363 MPV 9.4 Immature Gran % (Auto) 0.500 Neut % (Auto) 58.9 Lymph % (Auto) 32.2 [place] % (Auto) 6.6 Eos % (Auto) 1.2 Baso % (Auto) 0.6 Absolute Neuts (auto) 5.0 Absolute Lymphs (auto) 2.72 Nucleated RBC % 0 Sodium 141 Potassium 3.5 Chloride 114 H Carbon Dioxide 22.0 Anion Gap 5 BUN 9 Creatinine 0.82 Estim Creat Clear Calc 103.76 Est GFR (MDRD) Af Amer 111 Est GFR (MDRD) Non-Af 92 BUN/Creatinine Ratio 11.0 Glucose 86 Calcium 8.9 Magnesium 2.4 Total Bilirubin 0.20 Direct Bilirubin 0.10 AST 7 L ALT 14 Alkaline Phosphatase 74 Total Protein 8.3 H Albumin 4.1 Globulin 4.2 Lipase 233 Urine Color Urine Clarity Urine pH Ur Specific [place] Urine Protein Urine Glucose (UA) Urine Ketones Urine Occult Blood Urine Nitrite Urine Bilirubin Urine Urobilinogen Ur Leukocyte Esterase Urine RBC Urine WBC Ur Squamous Epith Cells Amorphous Sediment Urine Bacteria Urine Mucus Urine Test Negative 07/29/20 18:45 WBC RBC Hgb Hct MCV MCH MCHC RDW Std Deviation RDW Coeff of Phi Plt Count MPV Immature Gran % (Auto) Neut % (Auto) Lymph % (Auto) [place] % (Auto) Eos % (Auto) Baso % (Auto) Absolute Neuts (auto) Absolute Lymphs (auto) Nucleated RBC % Sodium Potassium Chloride Carbon Dioxide Anion Gap BUN Creatinine Estim Creat Clear Calc Est GFR (MDRD) Af Amer Est GFR (MDRD) Non-Af BUN/Creatinine Ratio Glucose Calcium Magnesium Total Bilirubin Direct Bilirubin AST ALT Alkaline Phosphatase Total Protein Albumin Globulin Lipase Urine Color Yellow Urine Clarity Cloudy Urine pH 7.0 Ur Specific [place] 1.010 Urine Protein Negative Urine Glucose (UA) Normal Urine Ketones Negative Urine Occult Blood Negative Urine Nitrite Negative Urine Bilirubin Negative Urine Urobilinogen 4 H Ur Leukocyte Esterase 25 H Urine RBC 0 SEEN Urine WBC 0 SEEN Ur Squamous Epith Cells 0-5 SEEN Amorphous Sediment 3+ Urine Bacteria 3+ Urine Mucus 0 SEEN Urine Test - Medical Decision Making Patient is evaluated for persistent diarrhea. Her exam is benign. Her vital signs are normal. She does not appear dehydrated. Labs are checked because of her persistent diarrhea to rule out any significant electrolyte abnormality. These are grossly normal. Her abdomen is soft and nontender and I do not think imaging of the belly is indicated at this time. Patient is given fluids and Toradol with improvement of her headache. She does not appear to have any diarrhea while in the emergency room. Patient is encouraged to follow-up with her surgeon as well as her PCP. She will be given a second course of Flagyl for her recent diagnosis of trichomonas and referral for DOMESTIC VIOLENCE COUNSELOR. Urinalysis is not consistent with UTI. Patient is counseled on signs and symptoms requiring return to the emergency room. Patient verbalizes agreement and understand this plan. Patient discharged home in stable and improved condition. ED Disposition - Plan for ED Patient: Disposition: Home or Assisted Living Diagnosis: Diarrhea Prescriptions: Metronidazole [Flagyl] 500 mg PO BID #14 tab Transmission Status: Pending to [facility] Referrals: Galdino Nam MD [Primary Care Provider] - Natasha Caraballo MD [STAFF PHYSICIAN] - Additional Instructions: Please follow-up with your primary care doctor as well as an DOMESTIC VIOLENCE COUNSELOR. You been referred to an DOMESTIC VIOLENCE COUNSELOR today for your continued vaginal irritation.
[2020-07-29 22:21] VITALS: BP 115/81; PULSE 74; RESP 16; O2SAT 98
--- NOTE | 2020-07-29 23:00 | ED.RN ---
PT D/C AT 2255. IV D/C AND SITE COVERED WITH 2X2 GAUZE. PT EDUCATED ON DISCHARGE INSTRUCTIONS REGARDING DIARRHEA AND FOLLOW UP. PT VERBALIZES UNDERSTANDING AND DENIES ANY FURTHER QUESTIONS. PT DRESSES SELF AND AMBULATES OUT OF DEPT BY SELF.
== END 2020-07-30 00:25 | disposition home or self-care (01) ==
PROVIDERS: Emergency Provider Emergency Medicine; PCP Family Medicine
DX: R19.7 Diarrhea, unspecified (principal); G43.909 Migraine, unspecified, not intractable, without status migrainosus; K21.9 Gastro-esophageal reflux disease without esophagitis; J45.909 Unspecified asthma, uncomplicated; F17.200 Nicotine dependence, unspecified, uncomplicated; Z79.51 Long term (current) use of inhaled steroids; Z79.899 Other long term (current) drug therapy
CPT/HCPCS: 80048; 80076; 81001; 81025; 83690; 83735; 85025; 87086; 87088; 96361; 96374; 99282; J7030; A4216

== ENCOUNTER 2020-08-17 12:33 | Emergency (ER) | payer MEDICAID, SELFPAY ==
[2020-08-17 12:34] VITALS: BP 121/80; PULSE 91; RESP 16; TEMP 36.2; O2SAT 99; BMI 26.6
--- NOTE | 2020-08-17 13:07 | ED.VIS.GEN ---
History of Present Illness Chief Complaint: Abd Pain Informant: Patient Onset: Month(s) Narrative: 25-year-old female with past medical history of chronic abdominal pain and diarrhea x5 years presents with complaints of abdominal pain. She states she has had intermittent sharp abdominal pains that can be on either side almost daily for the last 5 years. Today the pain was in the LLQ and became sharp while she was at her job. She had endoscopy and colonoscopy done in June [address] Medina but has not yet had these results. In the past she is also had an exploratory laparotomy and states a benign tumor was removed but there was no other acute process and no endometriosis. She takes omeprazole but does not take anything for diarrhea. She states she has diarrhea approximately every 2 hours and it is light brown. No change in frequency, no blood. Denies fevers, chills, nausea, or vomiting. Denies vaginal bleeding or discharge. No concern for STD. LMP was 1 week ago. Past Medical History - Allergies and Home Meds Allergies/Adverse Reactions: Allergies amoxicillin Allergy (Verified 08/17/20 12:42) Anaphylaxis etonogestrel [From Nexplanon] Allergy (Verified 08/17/20 12:42) Swelling lidocaine Allergy (Verified 08/17/20 12:42) Anaphylaxis mepivacaine [From Carbocaine] Allergy (Verified 08/17/20 12:42) Swelling mushroom Allergy (Verified 08/17/20 12:42) Other procaine [From Novocain] Allergy (Verified 08/17/20 12:42) Unknown adhesive tape Adverse Reaction (Verified 08/17/20 12:42) Rash Primary Care Physician: Galdino Nam MD [Primary Care Provider] - Past Medical History: - - chronic diarrhea, PNES Surgical History: no surgical history Smoking Status: Never smoker Review of Systems General: Denies: Chills, Fever, Sweats Eyes: Denies: Visual changes - bilaterally, Diplopia ENT: Denies: Rhinorrhea, Sore throat Cardiovascular: Denies: Chest pain, Palpitations Respiratory: Denies: Dyspnea, Cough, Dyspnea on exertion Gastrointestinal: Reports: Abdominal pain, Diarrhea. Denies: Nausea, Vomiting, Constipation, Melena, Hematochezia Genitourinary: Denies: Dysuria, Hematuria, Frequency Musculoskeletal: Denies: Myalgias Skin: Denies: Rash Neurological: Denies: Headache Physical Exam Vital Signs/Narrative: Vital Signs Temp Pulse Resp BP Pulse Ox 08/17/20 12:34 97.2 F L 91 16 121/80 H 99 Inital Vital Signs reviewed: Yes General: Well nourished, Well developed, No Acute Distress Head: Normocephalic, Atraumatic Eyes: Perrl, EOMI ENT: Moist mucous membranes, No rhinorrhea Neck: Supple, Nontender Cardiovascular: Regular rate, Regular rhythm, No murmurs Respiratory: No distress, CTA bilaterally, Chest nontender Abdomen: Soft, Nontender, Nondistended, Normal bowel sounds Back: Nontender, Normal Inspection Extremities: No edema Skin: Normal color, No rash Neurological: Alert, Oriented x3, Cranial nerves II-XII grossly intact, Normal Strength, Normal Sensation Psychological: Normal affect, Normal Mood Diagnostic/Tx/Re-eval Laboratory Data 08/17/20 08/17/20 08/17/20 12:45 13:00 13:10 WBC 6.8 RBC 4.64 Hgb 12.7 Hct 40.0 MCV 86.2 MCH 27.4 MCHC 31.8 L RDW Std Deviation 40.6 RDW Coeff of Phi 13.0 Plt Count 311 MPV 9.4 Immature Gran % (Auto) 0.300 Neut % (Auto) 57.8 Lymph % (Auto) 33.6 [place] % (Auto) 6.4 Eos % (Auto) 1.3 Baso % (Auto) 0.6 Absolute Neuts (auto) 3.9 Absolute Lymphs (auto) 2.27 Nucleated RBC % 0 Sodium Potassium Chloride Carbon Dioxide Anion Gap BUN Creatinine Estim Creat Clear Calc Est GFR (MDRD) Af Amer Est GFR (MDRD) Non-Af BUN/Creatinine Ratio Glucose Calcium Total Bilirubin AST ALT Alkaline Phosphatase Total Protein Albumin Globulin Albumin/Globulin Ratio Lipase Urine Color Yellow Urine Clarity Sl. Cloudy Urine pH 7.0 Ur Specific [place] 1.010 Urine Protein Negative Urine Glucose (UA) Normal Urine Ketones Negative Urine Occult Blood Negative Urine Nitrite Negative Urine Bilirubin Negative Urine Urobilinogen 4 H Ur Leukocyte Esterase Negative Urine RBC 0 SEEN Urine WBC 0 SEEN Ur Squamous Epith Cells 0-5 SEEN Urine Bacteria 1+ Urine Mucus 0 SEEN Urine Test Negative 08/17/20 13:10 WBC RBC Hgb Hct MCV MCH MCHC RDW Std Deviation RDW Coeff of Phi Plt Count MPV Immature Gran % (Auto) Neut % (Auto) Lymph % (Auto) [place] % (Auto) Eos % (Auto) Baso % (Auto) Absolute Neuts (auto) Absolute Lymphs (auto) Nucleated RBC % Sodium 141 Potassium 3.7 Chloride 111 H Carbon Dioxide 22.0 Anion Gap 8 BUN 11 Creatinine 0.78 Estim Creat Clear Calc 109.08 Est GFR (MDRD) Af Amer 118 Est GFR (MDRD) Non-Af 98 BUN/Creatinine Ratio 14.2 Glucose 98 Calcium 9.2 Total Bilirubin 0.20 AST 11 L ALT 19 Alkaline Phosphatase 62 Total Protein 7.6 Albumin 3.8 Globulin 3.8 Albumin/Globulin Ratio 1.0 Lipase 186 Urine Color Urine Clarity Urine pH Ur Specific [place] Urine Protein Urine Glucose (UA) Urine Ketones Urine Occult Blood Urine Nitrite Urine Bilirubin Urine Urobilinogen Ur Leukocyte Esterase Urine RBC Urine WBC Ur Squamous Epith Cells Urine Bacteria Urine Mucus Urine Test - Medical Decision Making Patient appears well nontoxic. Vital signs within normal limits. Abdominal exam is benign with no reproducible tenderness. Labs and urinalysis unremarkable. Urine negative. This sounds like acute on chronic abdominal pain which she has had for the last 5 years. She already had an endoscopy and colonoscopy which she is awaiting the results. Today with a soft abdomen and normal labs the risk of CT outweighs the benefit. I advised her to follow-up with her specialists and discussed return precautions. Continue taking PPI. She was agreeable and discharged home in stable condition. ED Disposition - Plan for ED Patient: Disposition: Home or Assisted Living Diagnosis: Abdominal pain Instructions: ED Abdominal Pain Unkn Cause Fem Referrals: Galdino Nam MD [Primary Care Provider] -
[2020-08-17 13:11] LABS: Color, Urine Yellow (Yellow); Glucose, Dipstick Normal (Normal); Ketone-Dipstick Negative (Negative); Leukocyte Esterase-Dipstick Negative /ul (Negative); Mucous, Urine 0 SEEN /hpf (<or=2+); Nitrite-Dipstick Negative (Negative); Occult Blood-Urine Negative /ul (Negative); Protein-Dipstick Negative (Negative); Red Blood Cells-Urine 0 SEEN /hpf (0-5); Urine Bilirubin Dipstick Negative (Negative); Urine Clarity Sl. Cloudy (Clear); Urine Urobilinogen 4 mg/dl (Normal); White Blood Cells 0 SEEN /hpf (0-5)
[2020-08-17 13:12] LABS: Internal QC Validated? YES +Cl - CLEAR BKGD
[2020-08-17 13:13] LABS: Pregnancy, Urine Negative Negative
[2020-08-17 13:17] LABS: Bacteria 1+ /hpf (None Seen); Squamous Epithelial Cells - UA 0-5 SEEN /hpf (5-10)
[2020-08-17 13:20] LABS: Absolute Lymphocyte Count 2.27 X10^3/uL (0.83-4.51); Absolute Neutrophil Count 3.9 X10^3/uL (2.0-7.7); Basophil# 0.04 X10^3/uL; Basophil% 0.6 % (0-1); Eosinophil# 0.09 X10^3/uL; Eosinophils% 1.3 % (0-5); Hemoglobin 12.7 g/dL (12.0-15.0); Lymphocyte # 2.27 X10^3/ul (4.0); Lymphocyte % 33.6 % (19-41); Mean Corp Hgb Conc 31.8 g/dL (32-36); Mean Corpuscular Hgb 27.4 pg (27.0-32.0); Mean Corpuscular Volume 86.2 fL (81-99); Mean Platelet Vol. 9.4 fl (6.2-12.0); Monocyte# 0.43 X10^3/uL; Monocyte% 6.4 % (0-10); NRBC Flagged by Analyzer 0 % (0-5); Neutrophil % 57.8 % (47-70); Platelet Count 311 K/mm3 (150-450); RBC Distribution Width SD 40.6 fl (35.1-43.9); Red Blood Count 4.64 M/mm3 (4.2-5.4); White Blood Count 6.8 K/mm3 (4.4-11.0)
[2020-08-17 13:36] LABS: AST(SGOT) 11 U/L (15-37); Alanine Aminotransfer ALT/SGPT 19 U/L (13-56); Albumin, Serum 3.8 g/dL (3.2-5.0); Alkaline Phosphatase 62 U/L (45-117); Anion Gap 8 (5-15); BUN 11 mg/dL (7-18); BUN/Creat Ratio 14.2 RATIO (10-20); Calcium,Total 9.2 mg/dL (8.5-10.1); Chloride 111 mmol/L (98-107); Creatinine, Serum 0.78 mg/dL (0.55-1.02); EST Glomerular Filtration Rate 98 mL/min (>60); Est Glom Filt Rate - Afr Amer 118 mL/min (>60); Estimated Creatinine Clearance 109.08 ml/min; Globulin 3.8 g/dL (2.2-4.2); Glucose 98 mg/dL (74-106); Lipase 186 U/L (73-393); Potassium 3.7 mmol/L (3.5-5.1); Protein, Total 7.6 g/dL (6.4-8.2); Sodium Level 141 mmol/L (136-145)
[2020-08-17 14:33] VITALS: BP 108/84; PULSE 76; RESP 18; O2SAT 100
== END 2020-08-17 14:34 | disposition home or self-care (01) ==
PROVIDERS: Emergency Provider Physician Assistant; PCP Family Medicine
DX: R10.32 Left lower quadrant pain (principal); G89.29 Other chronic pain
CPT/HCPCS: 80053; 81001; 81025; 83690; 85025; 99283; A4216

== ENCOUNTER 2020-09-16 16:34 | Emergency (ER) | payer MEDICAID, SELFPAY ==
[2020-09-16 16:35] VITALS: BP 147/76; PULSE 101; RESP 16; RESP 18; TEMP 36.1; TEMP 36.3; BMI 29.3
--- NOTE | 2020-09-16 16:52 | ED.VIS.GEN ---
History of Present Illness Chief Complaint: Informant: Patient Narrative: Patient states she is took 2 tests at home a week and a half ago, 1 of which was positive and 1 of which was negative. Patient presents today stating she just wants a test to know whether she is or not. She states she normally has her menstrual cycle and the first of each month. She believes her last normal period started on the first july. She was seen here for flank pain on August 17 and had a negative test at that time. She denies abdominal cramping or spotting. She denies urinary symptoms. She claims that she has gained 30 pounds in the past month. - Past Medical History (1) Asthma Status: Chronic (2) Diet-controlled diabetes mellitus Status: Chronic (3) alcohol syndrome Status: Chronic (4) GERD (gastroesophageal reflux disease) Status: Chronic Past Medical History - Allergies and Home Meds Allergies/Adverse Reactions: Allergies amoxicillin Allergy (Verified 08/17/20 12:42) Anaphylaxis etonogestrel [From Nexplanon] Allergy (Verified 08/17/20 12:42) Swelling lidocaine Allergy (Verified 08/17/20 12:42) Anaphylaxis mepivacaine [From Carbocaine] Allergy (Verified 08/17/20 12:42) Swelling mushroom Allergy (Verified 08/17/20 12:42) Other procaine [From Novocain] Allergy (Verified 08/17/20 12:42) Unknown adhesive tape Adverse Reaction (Verified 08/17/20 12:42) Rash Primary Care Physician: Galdino Nam MD [Primary Care Provider] - Prior records reviewed: Yes Surgical History: no surgical history Smoking Status: Never smoker Review of Systems General: Denies: Chills, Fever Eyes: Denies: Visual changes - bilaterally ENT: Denies: Bilateral ear pain Cardiovascular: Denies: Chest pain Respiratory: Denies: Dyspnea, Cough Gastrointestinal: Denies: Abdominal pain, Nausea, Vomiting, Diarrhea Genitourinary: Denies: Dysuria Musculoskeletal: Denies: Extremity Pain Neurological: Denies: Headache Hematologic: Denies: Easy bruising, Easy bleeding Allergy: Denies: Uticaria Physical Exam Vital Signs/Narrative: Vital Signs Temp Pulse Resp BP 09/16/20 16:35 97.3 F L 101 H 16 147/76 H Inital Vital Signs reviewed: Yes General: Well nourished, Well developed Head: Normocephalic ENT: Moist mucous membranes Neck: Supple Cardiovascular: Regular rate, Regular rhythm Respiratory: No distress, CTA bilaterally Abdomen: Soft, Nontender, Normal bowel sounds Extremities: Nontender Skin: Normal color Neurological: Alert, Oriented x3 Psychological: Normal affect Diagnostic/Tx/Re-eval Laboratory Results 09/16/20 09/16/20 17:20 17:20 Urine Color Yellow Urine Clarity Cloudy Urine pH 7.0 Ur Specific [place] 1.015 Urine Protein Negative Urine Glucose (UA) Normal Urine Ketones Negative Urine Occult Blood Negative Urine Nitrite Negative Urine Bilirubin Negative Urine Urobilinogen Normal Ur Leukocyte Esterase Negative Urine RBC 0 SEEN Urine WBC 0 SEEN Ur Squamous Epith Cells 0-5 SEEN Amorphous Sediment 3+ PHOS Urine Bacteria 0 SEEN Urine Mucus 0 SEEN Urine Test Negative - Medical Decision Making Urinalysis and here are negative. Patient was advised that she does not start her menstrual cycle in the next week she is to retake another test. She is instructed to follow-up with her PERSONAL INJURY LEGAL ASSISTANT. ED Disposition - Plan for ED Patient: Disposition: Home or Assisted Living Diagnosis: Amenorrhea Instructions: ED Amenorrhea Referrals: Galdino Nam MD [Primary Care Provider] - Additional Instructions: Follow-up with your PERSONAL INJURY LEGAL ASSISTANT in the next 1-2 weeks. If you still have not had your period in the next week, retake a home test.
[2020-09-16 17:38] LABS: Bacteria 0 SEEN /hpf (None Seen); Mucous, Urine 0 SEEN /hpf (<or=2+); Red Blood Cells-Urine 0 SEEN /hpf (0-5); White Blood Cells 0 SEEN /hpf (0-5)
[2020-09-16 17:45] LABS: Color, Urine Yellow (Yellow); Glucose, Dipstick Normal (Normal); Ketone-Dipstick Negative (Negative); Leukocyte Esterase-Dipstick Negative /ul (Negative); Nitrite-Dipstick Negative (Negative); Occult Blood-Urine Negative /ul (Negative); Protein-Dipstick Negative (Negative); Specific Gravity, Urine 1.015 (1.002-1.030); Urine Bilirubin Dipstick Negative (Negative); Urine Clarity Cloudy (Clear); Urine Urobilinogen Normal (Normal)
[2020-09-16 17:51] LABS: Internal QC Validated? YES +Cl - CLEAR BKGD; Pregnancy, Urine Negative Negative
[2020-09-16 18:04] LABS: Squamous Epithelial Cells - UA 0-5 SEEN /hpf (5-10)
[2020-09-16 18:05] LABS: Amorphous Sediment 3+ PHOS
== END 2020-09-16 18:59 | disposition home or self-care (01) ==
PROVIDERS: Emergency Provider Emergency Medicine; PCP Family Medicine
DX: N91.2 Amenorrhea, unspecified (principal); K21.9 Gastro-esophageal reflux disease without esophagitis; J45.909 Unspecified asthma, uncomplicated; Z79.51 Long term (current) use of inhaled steroids; Z79.899 Other long term (current) drug therapy
CPT/HCPCS: 81001; 81025; 99282

== ENCOUNTER 2020-09-21 20:52 | Emergency (ER) | payer MEDICAID, SELFPAY ==
[2020-09-21 20:53] VITALS: BP 134/97; PULSE 91; RESP 16; TEMP 36.6; O2SAT 99; BMI 30.2
--- NOTE | 2020-09-21 21:05 | ED.VIS.GEN ---
History of Present Illness Chief Complaint: Lower Extremity Injury Informant: Patient Onset: Days Context: Gradual Onset Timing: Intermittent Current Severity: Mild Maximum Severity: Mild Narrative: Patient is a 25-year-old female that presents to the emergency department with knee pain. Patient states that she has a Ahuja's cyst in the back of her knee. She states she is been doing physical therapy for patellofemoral pain syndrome. She states that she was told she had a Ahuja's cyst. She states it gets sore from time to time. She states she is not taking anything for it because she is . She states that she had a positive test here last week. When I reviewed the labs, her was negative. She states that she thought that it was positive. She states she is had a home positive test. She denies abdominal pain. She denies any fevers or chills. Prior similar symptoms: No Recent Illness/Hospitalization: No Past Medical History - Allergies and Home Meds Allergies/Adverse Reactions: Allergies amoxicillin Allergy (Verified 09/21/20 20:54) Anaphylaxis etonogestrel [From Nexplanon] Allergy (Verified 09/21/20 20:54) Swelling lidocaine Allergy (Verified 09/21/20 20:54) Anaphylaxis mepivacaine [From Carbocaine] Allergy (Verified 09/21/20 20:54) Swelling mushroom Allergy (Verified 09/21/20 20:54) Other procaine [From Novocain] Allergy (Verified 09/21/20 20:54) Unknown adhesive tape Adverse Reaction (Verified 09/21/20 20:54) Rash Primary Care Physician: Galdino Nam MD [Primary Care Provider] - Prior records reviewed: Yes Past Medical History: None Surgical History: no surgical history Smoking Status: Never smoker Review of Systems General: Denies: Chills, Fever, Sweats Eyes: Denies: Visual changes - bilaterally, Diplopia ENT: Denies: Rhinorrhea, Sore throat Cardiovascular: Denies: Chest pain, Palpitations Respiratory: Denies: Dyspnea, Cough, Dyspnea on exertion Gastrointestinal: Denies: Abdominal pain, Nausea, Vomiting, Diarrhea, Melena, Hematochezia Genitourinary: Denies: Dysuria, Hematuria, Frequency Musculoskeletal: Denies: Back pain, Extremity Pain Skin: Denies: Rash, Wounds Neurological: Denies: Headache, Weakness, Numbness Physical Exam Vital Signs/Narrative: Vital Signs Temp Pulse Resp BP Pulse Ox 09/21/20 20:53 97.8 F 91 16 134/97 H 99 Inital Vital Signs reviewed: Yes General: Well nourished, Well developed, No Acute Distress Head: Normocephalic, Atraumatic Eyes: Perrl, EOMI ENT: Moist mucous membranes, No rhinorrhea Neck: Supple, Nontender Cardiovascular: Regular rate, Regular rhythm, No murmurs Respiratory: No distress, CTA bilaterally, Chest nontender Abdomen: Soft, Nontender, Nondistended, Normal bowel sounds Back: Nontender, Normal Inspection Extremities: Nontender, No edema Skin: Normal color, No rash Neurological: Alert, Oriented x3, Cranial nerves II-XII grossly intact, Normal Strength, Normal Sensation Psychological: Normal affect, Normal Mood Diagnostic/Tx/Re-eval - Medical Decision Making The patient has no gross instability of the knee. There is 2+ pulses. Her extension is preserved. I do not feel a palpable Ahuja's cyst, but even then I do not feel that any emergent treatment is necessary. The patient states that she thinks she is and she has had both negative and positive home test. Quant will be obtained. This was negative. The patient was counseled on these results. She was concerned because she thinks that she has gained 30 pounds within the past month. I did review her records and this does not seem consistent. I counseled her to follow-up with her primary care for reevaluation. I will start her on anti-inflammatories for her knee pain. She will be discharged home. Impression 1. Negative test 2. Chronic right knee pain ED Disposition - Plan for ED Patient: Instructions: ED Knee Pain [facility] Prescriptions: Naproxen [Naprosyn] 500 mg PO BID PRN #20 tab Prescription Printed Referrals: Galdino Nam MD [Primary Care Provider] -
[2020-09-21 21:37] LABS: hCG Titer Quant., Serum < 1 mIU/mL (1-3)
--- NOTE | 2020-09-21 22:07 | ED.RN ---
PT WANTED A WORK NOTE FOR TODAY AND TOMORROW. WORK NOTE GIVEN AND STATED TIME SHE WAS HERE.
== END 2020-09-21 21:55 | disposition home or self-care (01) ==
LOC: ED 21:52
PROVIDERS: Emergency Provider Emergency Medicine; PCP Family Medicine
DX: M25.561 Pain in right knee (principal); G89.29 Other chronic pain
CPT/HCPCS: 36415; 84702; 99281

== ENCOUNTER 2020-10-15 15:51 | Emergency (ER) | payer MEDICAID, SELFPAY ==
[2020-10-15 15:51] VITALS: BP 124/80; PULSE 100; RESP 16; TEMP 36.6; O2SAT 98; BMI 29.7
--- NOTE | 2020-10-15 15:59 | ED.VIS.GEN ---
History of Present Illness Chief Complaint: Abscess Informant: Patient Onset: Days - Onset 2 days ago Context: Sudden Onset Timing: Continuous Quality: Painful red swollen area Location: Proximal medial left thigh Current Severity: Mild Maximum Severity: Moderate Worsened by: Nothing Relieved by: Nothing Associated Symptoms: No associated symptoms Narrative: Patient is a 25-year-old who presents with abscess left thigh. She noted pain 2 days ago. She now has a red swollen area. She denies fever, chills night sweats. She has history of diabetes. She not immune suppressed. There is no history medic fever heart murmur. Prior similar symptoms: No Recent Illness/Hospitalization: No - Past Medical History (1) Asthma Status: Chronic (2) Diet-controlled diabetes mellitus Status: Chronic (3) alcohol syndrome Status: Chronic (4) GERD (gastroesophageal reflux disease) Status: Chronic Past Medical History - Allergies and Home Meds Allergies/Adverse Reactions: Allergies amoxicillin Allergy (Verified 10/15/20 15:52) Anaphylaxis etonogestrel [From Nexplanon] Allergy (Verified 10/15/20 15:52) Swelling lidocaine Allergy (Verified 10/15/20 15:52) Anaphylaxis mepivacaine [From Carbocaine] Allergy (Verified 10/15/20 15:52) Swelling mushroom Allergy (Verified 10/15/20 15:52) Other procaine [From Novocain] Allergy (Verified 10/15/20 15:52) Unknown adhesive tape Adverse Reaction (Verified 10/15/20 15:52) Rash Primary Care Physician: Galdino Nam MD [Primary Care Provider] - Prior records reviewed: Yes Surgical History: no surgical history Lives: Alone Smoking Status: Current every day smoker Review of Systems General: Denies: Chills, Fever, Malaise, Subjective Eyes: Denies: Visual changes - bilaterally, Blurred Vision - bilaterally Cardiovascular: Denies: Chest pain Respiratory: Denies: Dyspnea Gastrointestinal: Denies: Nausea, Vomiting Musculoskeletal: Reports: Extremity Pain. Denies: Myalgias, Arthralgias, Swelling Skin: Reports: Abscess Hematologic: Denies: Easy bruising, Easy bleeding Physical Exam Vital Signs/Narrative: Vital Signs Temp Pulse Resp BP Pulse Ox 10/15/20 15:51 97.8 F 100 16 124/80 H 98 Inital Vital Signs reviewed: Yes General: Well nourished, Well developed, No Acute Distress Head: Normocephalic, Atraumatic Eyes: Perrl, EOMI ENT: Moist mucous membranes, No rhinorrhea Neck: Supple, Nontender, No lymphadenopathy, No JVD Cardiovascular: Regular rate, Regular rhythm, No murmurs, Normal S1, Normal S2 Respiratory: No distress, CTA bilaterally Extremities: Tenderness Skin: Normal color, Rash - Redness over area of swelling consistent with subcutaneous abscess Neurological: Alert, Oriented x3, Cranial nerves II-XII grossly intact, Normal Strength, Normal Sensation Psychological: Normal affect, Normal Mood Diagnostic/Tx/Re-eval - Medical Decision Making She has a subcutaneous abscess inner proximal left thigh. There is no evidence of cellulitis i.e. induration, warmth and there is no inguinal adenopathy. There is evidence of folliculitis. Since patient reports anaphylaxis to amoxicillin she was treated with clindamycin. Procedures Procedure(s): Prepped draped sterile manner. The area was Nestabs were signed let lidocaine by local infiltration and field block. Incision was made using 10 blade. Length of incision 2.5 cm. There was free flow of purulent material. Blunt dissection was undertaken. There is no evidence of cellulitis. The cavity was irrigated with normal saline approximately 100 cc. ED Disposition - Plan for ED Patient: Disposition: Home or Assisted Living Diagnosis: Subcutaneous abscess, Acute folliculitis Instructions: ED Abscess Incision And Drainage, ED Folliculitis Prescriptions: Clindamycin HCl [Cleocin] 300 mg PO Q6H #28 cap Transmission Status: Pending to [id number] Referrals: Galdino Nam MD [Primary Care Provider] - 2 Days for wound check
[2020-10-15 16:29] VITALS: BP 124/80; PULSE 100; RESP 18
== END 2020-10-15 16:30 | disposition home or self-care (01) ==
PROVIDERS: Emergency Provider Emergency Medicine; PCP Family Medicine
DX: L02.416 Cutaneous abscess of left lower limb (principal); L73.9 Follicular disorder, unspecified; J45.909 Unspecified asthma, uncomplicated; E11.9 Type 2 diabetes mellitus without complications; K21.9 Gastro-esophageal reflux disease without esophagitis; F17.200 Nicotine dependence, unspecified, uncomplicated
CPT/HCPCS: 10060; 99282

== ENCOUNTER 2020-12-17 18:36 | Emergency (ER) | payer MEDICAID, SELFPAY ==
[2020-12-17 18:36] VITALS: BP 130/70; PULSE 92; RESP 18; TEMP 36.4; O2SAT 95; BMI 30.5
--- NOTE | 2020-12-17 19:09 | ED.VISSUMM ---
- ER Visit Summary Date of Service: 12/17/20 Chief Complaint: [Injury to left ankle] History of Present Illness: The patient is a 25 F [presents to the emergency department complaint of a fall this evening. Patient states that she slipped on some ice in her driveway and twisted her left ankle. Patient able to bear some weight on her toes but having pain with walking. Patient also states that she has some discomfort about her knee. Patient has history of patellofemoral syndrome as well as psychogenic nonepileptic seizure disorder. Patient denies wrecking her head or loss of consciousness. She denies any neck pain, chest pain, abdominal pain.] Physical Examination: [HEENT-PERRLA, EOMI. Cranial nerves II through XII grossly intact. TMs clear. Mucous membranes moist. No adenopathy. Cardiovascular-regular rate and rhythm without murmur or ectopy Lungs-clear to auscultation, chest wall stable without crepitus or subcu emphysema Abdomen-normoactive bowel sounds, soft, nontender, no rebound or rigidity, no peritoneal signs. Extremities-intact ?4, normal range of motion, normal pulses. Left ankle-patient has tenderness palpation over the medial malleolus and mortise of the ankle. No pain at the lateral malleolus. No pain at the base of the fifth metatarsal. Left knee-patient does have some diffuse tenderness over the proximal fibula. Patient has some pain with flexion extension at the knee. Ligamentously stable. Neurovascular intact distally.] Test Results: 3 view Xrays of the left ankle and left knee obtained interpreted by myself as no acute fractures or dislocations. Radiology was in agreement.] Emergency Department Course and Treatment: [Patient was given an air splint and crutches] Treatment Plan: [To follow-up with primary care physician in 5 to 7 days.] Disposition: [Discharged home in stable condition] Impression: [Mechanical fall Left ankle sprain] This note was generated with [employer] dictation software. It may contain incorrect words, spelling, and punctuation that were not noted in review of the chart prior to signing ED Disposition - Plan for ED Patient: Referrals: Galdino Nam MD [Primary Care Provider] -
--- NOTE | 2020-12-17 19:20 | RAD_ITS ---
STUDY: X-RAY - LEFT KNEE REASON FOR EXAM: Female, 25 years old. Trauma TECHNIQUE: 4 view(s) of the knee. COMPARISON: None. FINDINGS: There is no evidence of fracture or dislocation. There are no significant degenerative changes. There are no radiodense foreign bodies. RAD/Knee 4 or More Views IMPRESSION: No fracture or dislocation. Electronically Signed: Kingston Markham MD at 19:37 EST Tel , Service support ,
--- NOTE | 2020-12-17 19:20 | RAD_ITS ---
STUDY: X-RAY - LEFT ANKLE REASON FOR EXAM: Female, 25 years old. Trauma TECHNIQUE: 3 view(s) of the ankle. COMPARISON: None. FINDINGS: There is no evidence of fracture or dislocation. There are no significant degenerative changes. There are no radiodense foreign bodies. RAD/Ankle min 3 Views IMPRESSION: No fracture or dislocation. Electronically Signed: Kingston Markham MD at 19:34 EST Tel , Service support ,
--- NOTE | 2020-12-17 20:27 | ED.DEP ---
ED Disposition - Plan for ED Patient: Instructions: ED Sprain Ankle W X Ray Referrals: Galdino Nam MD [Primary Care Provider] - 5-7 Days
[2020-12-17 20:40] VITALS: RESP 18
== END 2020-12-17 20:55 | disposition home or self-care (01) ==
LOC: ED 19:35
PROVIDERS: Emergency Provider Emergency Medicine; PCP Family Medicine
DX: S93.402A Sprain of unspecified ligament of left ankle, initial encounter (principal); Z72.0 Tobacco use; W00.0XXA Fall on same level due to ice and snow, initial encounter; Y93.01 Activity, walking, marching and hiking; Y92.008 Other place in unspecified non-institutional (private) residence as the place of occurrence of the external cause; Y99.8 Other external cause status
CPT/HCPCS: 73564; 73610; 99284

== ENCOUNTER 2021-03-03 12:28 | Emergency (ER) | payer MEDICAID, SELFPAY ==
[2021-03-03 12:29] VITALS: BP 118/82; PULSE 82; RESP 15; TEMP 36.4; O2SAT 98; BMI 33.3
--- NOTE | 2021-03-03 13:22 | ED.VISSUMM ---
- ER Visit Summary Date of Service: 03/03/21 Chief Complaint: Headache History of Present Illness: The patient is a [address] Nam. She reports that she has a headache that began 2 days ago. It is an aching occipital pain is 10 of 10 worsened 7-10 currently. Is gradually gotten worse. It is worsened by light and noise. She taken her Topamax and Tylenol without relief. She does have a history of similar headaches. Patient denies associated nausea or vomiting. Patient reports that she is had nosebleeds off and on for the past week. Last episode was at 3:00 this morning. It was from the left side last approximate 45 minutes. Denies any injury to her nose. She denies any pain. States that the bleeding seems to be alternating from the right and left sides. She reports that she has sinus drainage that has blood in it as well. She denies any emesis. She reports she had one episode of diarrhea today. No blood in her stools or black tarry stools. In fact she reports that it is green. Physical Examination: Vitals: Stable. Afebrile. General: Well-nourished and well-developed. Head: Normocephalic atraumatic. HEENT: Excoriation in the medial nasal septum bilaterally. There is no active bleeding. There is no clot present. There is no clot in the oropharynx. Neck: Supple, no lymphadenopathy. No JVD. Nontender. Cardiovascular: Regular rate and rhythm. No murmurs. Respiratory: No respiratory distress. Clear to auscultation bilaterally. Abdominal: Soft, nontender, nondistended, normal bowel sounds. No guarding, rebound, or peritoneal signs. Back: Nontender. Extremities: Nontender, no edema. Skin: Normal color, no rash. Neurologic: Alert and oriented ?3. Cranial nerves II through XII are intact. Normal strength and sensation. Psych: Normal affect. Test Results: CBC is normal. Chem-7 shows a chloride of 111. test is negative. Emergency Department Course and Treatment: Patient had an IV placed. She was given Benadryl, Toradol, and Reglan IV with significant relief of her headache. She is resting comfortably. Treatment Plan: Patient be discharged instructions push fluids. Follow-up with her primary care physician 1 to 2 days if not improving. She is instructed to use a humidifier and put Vaseline on the septum of her nose to prevent further nosebleeds. Return to the emergency department for any worsening symptoms. Disposition: To home in improved and stable condition. Impression: 1. Cephalgia. 2. Nosebleed, resolved. This note was generated with [employer] dictation software. It may contain incorrect words, spelling, and punctuation that were not noted in review of the chart prior to signing ED Disposition - Plan for ED Patient: Instructions: ED Sinus Headache Referrals: Galdino Nam MD [Primary Care Provider] - 1-2 Days if not improving
[2021-03-03] MEDS: 0.9% Normal Saline 1,000 ML 1000 ML IV (13:48)
[2021-03-03] MEDS: Metoclopramide 10 MG/2 ML Vial IV (13:48)
[2021-03-03] MEDS: Ketorolac 15 MG/ML Vial IV (13:49)
[2021-03-03] MEDS: DiphenhydrAMINE 50 MG/ML Syringe IV (13:50)
[2021-03-03 13:58] LABS: Absolute Lymphocyte Count 2.16 X10^3/uL (0.83-4.51); Absolute Neutrophil Count 5.2 X10^3/uL (2.0-7.7); Basophil# 0.04 X10^3/uL; Basophil% 0.5 % (0-1); Eosinophil# 0.08 X10^3/uL; Hematocrit 37.5 % (37-47); Lymphocyte # 2.16 X10^3/ul (4.0); Lymphocyte % 26.6 % (19-41); Mean Corpuscular Hgb 26.7 pg (27.0-32.0); Mean Corpuscular Volume 83.3 fL (81-99); Mean Platelet Vol. 9.2 fl (6.2-12.0); Monocyte# 0.58 X10^3/uL; Monocyte% 7.1 % (0-10); NRBC Flagged by Analyzer 0 % (0-5); Neutrophil # 5.24 X10^3/uL (2.7-7.7); Neutrophil % 64.6 % (47-70); Platelet Count 371 K/mm3 (150-450); RBC Distribution Width CV 13.3 % (11.6-14.6); RBC Distribution Width SD 40.9 fl (35.1-43.9); White Blood Count 8.1 K/mm3 (4.4-11.0)
[2021-03-03 14:11] LABS: Anion Gap 6 (5-15); BUN 9 mg/dL (7-18); BUN/Creat Ratio 12.3 RATIO (10-20); Calcium,Total 9.2 mg/dL (8.5-10.1); Chloride 111 mmol/L (98-107); Creatinine, Serum 0.73 mg/dL (0.55-1.02); EST Glomerular Filtration Rate 105 mL/min (>60); Est Glom Filt Rate - Afr Amer 127 mL/min (>60); Estimated Creatinine Clearance 107.85 ml/min; Glucose 97 mg/dL (74-106); Potassium 3.5 mmol/L (3.5-5.1); Sodium Level 139 mmol/L (136-145)
[2021-03-03 14:15] LABS: Internal QC Validated? YES +Cl - CLEAR BKGD; Pregnancy, Serum, hCG Quali. NEGATIVE Negative
== END 2021-03-03 14:32 | disposition home or self-care (01) ==
LOC: ED 14:03
PROVIDERS: Emergency Provider Emergency Medicine; PCP Family Medicine
DX: R51.9 Headache, unspecified (principal); R04.0 Epistaxis; Z72.0 Tobacco use
CPT/HCPCS: 80048; 84703; 85025; 96361; 96374; 96375; 99283; J7030

== ENCOUNTER 2021-05-19 18:41 | Emergency (ER) | payer MEDICAID, SELFPAY ==
[2021-05-19 18:42] VITALS: BP 140/81; PULSE 99; RESP 18; TEMP 36.4; O2SAT 92; BMI 33.1
--- NOTE | 2021-05-19 21:05 | CT_ITS ---
STUDY: CT ABDOMEN AND PELVIS WITHOUT CONTRAST REASON FOR EXAM: Female, 25 years old. Right abdominal pain radiating into the right flank. 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 RADIATION DOSAGE (If Supplied By Facility): CTDIvol = ( 11.60 ) mGy, DLP = ( 593.97 ) mGycm TECHNIQUE: Transaxial images were obtained from the dome of the diaphragm to the symphysis pubis without oral contrast, and without intravenous contrast. Sagittal and coronal images were reconstructed. Individualized dose optimization techniques were used for this CT. COMPARISON: CT of the abdomen and pelvis, 01/14/2020 FINDINGS: The visualized lung bases are unremarkable. The visualized portions of the heart are within normal limits. Normal liver. Normal gallbladder and extrahepatic biliary system. Normal spleen. Normal pancreas. Normal bilateral adrenal glands. Normal right kidney. Normal left kidney. Normal visualized ureters. Normal visualized stomach. Normal small intestine. Normal colon. The appendix is visualized and appears normal. Normal abdominal aorta. Normal inferior vena cava. Normal retroperitoneum. Normal urinary bladder. Normal uterus. There is a 4.4 x 4.0 x 4.0 cm right adnexal mass no pelvic lymphadenopathy. No free air or free fluid is seen within the peritoneal cavity. Normal abdominal wall. Normal osseous structures. CT/Abdomen/Pelvis without Cont IMPRESSION: 1. Right adnexal mass. This is thought to correlate with the large right adnexal cyst seen on the prior study. 2. Otherwise normal CT of the abdomen and pelvis. Electronically Signed: Matthew Mendez DO at 21:59 EDT Tel [phone], Service support ,
--- NOTE | 2021-05-19 21:06 | EX.ED.DYSGE1 ---
HPI History of Present Illness Chief Complaint: Abd Pain Informant: patient Onset/Context/Timing Onset: Yesterday Current Severity: Mild Maximum Severity: Moderate Narrative Narrative: Patient presents with right flank pain as well as epigastric and right shoulder pain. She states symptoms all started yesterday. She had some intermittent nausea and states pain seems to be worse when she eats. She denies urinary symptoms. PFSH PFSH Medical History Anxiety Depression HPV (human papilloma virus) infection IBS (irritable bowel syndrome) Migraines Seizures Home Medications albuterol sulfate [Ventolin Hfa (SP)] 1 puff INHALATION Q4H PRN PRN 07/02/17 [History Last Taken Unknown] sertraline 100 mg PO DAILY 10/18/17 [History Last Taken Unknown] ferrous sulfate 325 mg PO DAILY 10/18/19 [History Last Taken Unknown] omeprazole 40 mg PO DAILY 10/18/19 [History Last Taken Unknown] topiramate 50 mg PO BID 03/16/20 [History Last Taken Unknown] naproxen 500 mg PO BID PRN #20 tab 09/21/20 [Rx Last Taken Unknown] Allergy/AdvReac Type Severity Reaction Status Date / Time amoxicillin Allergy Anaphylaxis Verified 05/19/21 18:43 etonogestrel [From Nexplanon] Allergy Swelling Verified 05/19/21 18:43 lidocaine Allergy Anaphylaxis Verified 05/19/21 18:43 mepivacaine [From Carbocaine] Allergy Swelling Verified 05/19/21 18:43 mushroom Allergy Other Verified 05/19/21 18:43 procaine [From Novocain] Allergy Unknown Verified 05/19/21 18:43 adhesive tape AdvReac Rash Verified 05/19/21 18:43 Social History Smoking Status: Current every day smoker tobacco type: cigarettes ROS ROS ED Constitutional Constitutional ED: Reports chills; Denies fever(s) Eyes Eyes: Denies change in vision ENT ENT ED: Denies sore throat Cardiovascular Cardiovascular: Denies chest pain Respiratory/Chest Respiratory/Chest: Denies cough or dyspnea Gastrointestinal Gastrointestinal: Reports abdominal pain and nausea; Denies diarrhea or vomiting Genitourinary Genitourinary ED: Denies dysuria Musculoskeletal Musculoskeletal: Reports back pain Integumentary Denies rash Neurologic Neurologic: Denies headache(s) or weakness Psychiatric Psychiatric: Denies anxiety or depression Endocrine Endocrinology: Denies polydipsia or polyuria Allergic/Immunologic Allergic/Immunologic ED: Denies urticaria EXAM Physical Exam Const Vital Signs: 05/19/21 18:42 05/19/21 21:39 05/19/21 21:40 Temperature 97.5 F L Temperature Source Temporal Pulse Rate 99 92 Respiratory Rate 18 26 H Blood Pressure 140/81 H 134/61 H Blood Pressure Mean 100 85 Pulse Ox 92 89 91 Oxygen Delivery Method Room Air Room Air Nasal Cannula Oxygen Flow Rate (L/min) 2 Positive well nourished and well developed General Appearance ED: well developed HEENT Reports normocephalic and head/scalp atraumatic Eyes PERRL and EOMs intact bilaterally Neck supple Chest Wall inspection of chest normal and palpation of chest normal Resp normal respiratory effort and clear to auscultation bilaterally Cardio regular rate and regular rhythm GI normal to inspection, nondistended, normoactive bowel sounds Palpation: soft and tender epigastric and RLQ Extremity normal to inspection Neuro oriented x3 and no sensory deficits noted Sensorium / Orientation: alert Motor Exam: strength 5/5 throughout Psych mental status grossly normal Skin no rashes or lesions noted MDM MDM MDM Narrative Medical decision making narrative: Patient was given Toradol for pain. Blood work, urinalysis, CT flank are obtained. Lab Data Attestation: I reviewed the patient's lab results. Labs: Laboratory Results - last 24 hr 05/19/21 05/19/21 05/19/21 21:05 21:05 21:05 WBC 10.2 RBC 5.41 H Hgb 14.0 Hct 45.3 MCV 83.7 MCH 25.9 L MCHC 30.9 L RDW Std Deviation 44.1 H RDW Coeff of Phi 14.4 Plt Count 390 MPV 9.3 Immature Gran % (Auto) 0.300 Neut % (Auto) 60.7 Lymph % (Auto) 30.5 [place] % (Auto) 6.3 Eos % (Auto) 1.7 Baso % (Auto) 0.5 Absolute Neuts (auto) 6.2 Absolute Lymphs (auto) 3.11 Nucleated RBC % 0 Sodium 138 Potassium 3.8 Chloride 108 H Carbon Dioxide 21.0 Anion Gap 9 BUN 8 Creatinine 0.84 Estim Creat Clear Calc 93.73 Est GFR (MDRD) Af Amer 107 Est GFR (MDRD) Non-Af 88 BUN/Creatinine Ratio 9.5 L Glucose 89 Calcium 9.5 Total Bilirubin Direct Bilirubin AST ALT Alkaline Phosphatase Total Protein Albumin Globulin Lipase Serum , Qual NEGATIVE Urine Color Urine Clarity Urine pH Ur Specific [place] Urine Protein Urine Glucose (UA) Urine Ketones Urine Occult Blood Urine Nitrite Urine Bilirubin Urine Urobilinogen Ur Leukocyte Esterase Urine RBC Urine WBC Ur Squamous Epith Cells Urine Bacteria Urine Mucus 05/19/21 05/19/21 21:05 21:05 WBC RBC Hgb Hct MCV MCH MCHC RDW Std Deviation RDW Coeff of Phi Plt Count MPV Immature Gran % (Auto) Neut % (Auto) Lymph % (Auto) [place] % (Auto) Eos % (Auto) Baso % (Auto) Absolute Neuts (auto) Absolute Lymphs (auto) Nucleated RBC % Sodium Potassium Chloride Carbon Dioxide Anion Gap BUN Creatinine Estim Creat Clear Calc Est GFR (MDRD) Af Amer Est GFR (MDRD) Non-Af BUN/Creatinine Ratio Glucose Calcium Total Bilirubin 0.30 Direct Bilirubin 0.09 AST 11 L ALT 21 Alkaline Phosphatase 79 Total Protein 8.7 H Albumin 4.2 Globulin 4.5 H Lipase 130 Serum , Qual Urine Color Yellow Urine Clarity Sl. Cloudy Urine pH 7.0 Ur Specific [place] 1.010 Urine Protein Negative Urine Glucose (UA) Normal Urine Ketones Negative Urine Occult Blood Negative Urine Nitrite Negative Urine Bilirubin Negative Urine Urobilinogen Normal Ur Leukocyte Esterase Negative Urine RBC 0 SEEN Urine WBC 0 SEEN Ur Squamous Epith Cells 0-5 SEEN Urine Bacteria 0 SEEN Urine Mucus 0 SEEN Radiography Diagnostic Testing: Radiology Impression Abdomen/Pelvis CT 05/19/21 21:05 IMPRESSION: 1. Right adnexal mass. This is thought to correlate with the large right adnexal cyst seen on the prior study. 2. Otherwise normal CT of the abdomen and pelvis. Electronically Signed: Matthew Mendez DO at 21:59 EDT Tel [phone], Service support , Transvaginal US 05/19/21 22:58 IMPRESSION: Hypoechoic mass in the right ovary. Proteinaceous fluid versus solid mass. Electronically Signed: Matthew Mendez DO at 23:54 EDT Tel [phone], Service support , Treatment and Re-Evaluation Comments:: CT flank reveals evidence of a right adnexal mass. Patient is sent for ultrasound and this does confirm a hypoechoic mass in the right ovary. Proteinaceous fluid versus solid mass. Good blood flow is noted to the ovary itself. Test results discussed with the patient. She will follow-up with her [facility] at . She is encouraged to call tomorrow morning for an appointment as soon as possible. Discharge Plan Triage Chief Complaint: Abd Pain ED Provider: Deborah Shell Dx/Rx/DC Orders Clinical Impression: Abdominal pain, Adnexal mass Instructions: ED Abdominal Pain Unkn Cause Fem Prescriptions: No Action albuterol sulfate [Ventolin HFA] 1 INHALER inhaler 1 puff inhalation Q4H PRN PRN (Reason: Wheezing) RF: 0 sertraline 100 MG tablet 100 mg PO DAILY RF: 0 omeprazole 40 MG capsule,delayed release(DR/EC) 40 mg PO DAILY RF: 0 ferrous sulfate 325 MG tablet 325 mg PO DAILY RF: 0 topiramate 50 MG tablet 50 mg PO BID RF: 0 naproxen 500 MG tablet 500 mg PO BID PRN Qty: 20 RF: 0 Primary Care Provider: Galdino Nam Referrals: Galdino Nam MD [Primary Care Provider] - Activity Restrictions/Additional Instructions: As discussed, your CT scan and ultrasound do reveal a mass next to your right ovary. Please follow-up with your [employer] MA[employer]GER as soon as possible for further work-up of this lesion. Your physician can request medical records to review imaging and reports. Disposition Disposition: Home, self care
[2021-05-19 21:13] LABS: Bacteria 0 SEEN /hpf (None Seen); Mucous, Urine 0 SEEN /hpf (<or=2+); Red Blood Cells-Urine 0 SEEN /hpf (0-5); White Blood Cells 0 SEEN /hpf (0-5)
[2021-05-19 21:15] LABS: Absolute Lymphocyte Count 3.11 X10^3/uL (0.83-4.51); Absolute Neutrophil Count 6.2 X10^3/uL (2.0-7.7); Basophil# 0.05 X10^3/uL; Basophil% 0.5 % (0-1); Eosinophil# 0.17 X10^3/uL; Eosinophils% 1.7 % (0-5); Hematocrit 45.3 % (37-47); Lymphocyte # 3.11 X10^3/ul (0.83-4.51); Lymphocyte % 30.5 % (19-41); Mean Corp Hgb Conc 30.9 g/dL (32-36); Mean Corpuscular Hgb 25.9 pg (27.0-32.0); Mean Corpuscular Volume 83.7 fL (81-99); Mean Platelet Vol. 9.3 fl (6.2-12.0); Monocyte# 0.64 X10^3/uL; Monocyte% 6.3 % (0-10); NRBC Flagged by Analyzer 0 % (0-5); Neutrophil # 6.21 X10^3/uL (2.7-7.7); Neutrophil % 60.7 % (47-70); Platelet Count 390 K/mm3 (150-450); RBC Distribution Width CV 14.4 % (11.6-14.6); RBC Distribution Width SD 44.1 fl (35.1-43.9); Red Blood Count 5.41 M/mm3 (4.2-5.4); White Blood Count 10.2 K/mm3 (4.4-11.0)
[2021-05-19 21:17] LABS: Color, Urine Yellow (Yellow); Glucose, Dipstick Normal (Normal); Ketone-Dipstick Negative (Negative); Leukocyte Esterase-Dipstick Negative /ul (Negative); Nitrite-Dipstick Negative (Negative); Occult Blood-Urine Negative /ul (Negative); Protein-Dipstick Negative (Negative); Urine Bilirubin Dipstick Negative (Negative); Urine Clarity Sl. Cloudy (Clear); Urine Urobilinogen Normal (Normal)
[2021-05-19] MEDS: 0.9% Normal Saline 1,000 ML 150 ML IV (21:18)
[2021-05-19] MEDS: Ketorolac 30 MG/ML Syringe IV (21:19)
[2021-05-19] MEDS: Ondansetron 4 MG/2 ML Vial IV (21:19)
[2021-05-19 21:26] LABS: Internal QC Validated? YES +Cl - CLEAR BKGD; Pregnancy, Serum, hCG Quali. NEGATIVE Negative
[2021-05-19 21:27] LABS: Anion Gap 9 (5-15); BUN 8 mg/dL (7-18); BUN/Creat Ratio 9.5 RATIO (10-20); Calcium,Total 9.5 mg/dL (8.5-10.1); Chloride 108 mmol/L (98-107); Creatinine, Serum 0.84 mg/dL (0.55-1.02); EST Glomerular Filtration Rate 88 mL/min (>60); Est Glom Filt Rate - Afr Amer 107 mL/min (>60); Estimated Creatinine Clearance 93.73 ml/min; Glucose 89 mg/dL (74-106); Potassium 3.8 mmol/L (3.5-5.1); Sodium Level 138 mmol/L (136-145)
[2021-05-19 21:30] LABS: Squamous Epithelial Cells - UA 0-5 SEEN /hpf (5-10)
[2021-05-19 21:35] LABS: AST(SGOT) 11 U/L (15-37); Alanine Aminotransfer ALT/SGPT 21 U/L (13-56); Albumin, Serum 4.2 g/dL (3.2-5.0); Alkaline Phosphatase 79 U/L (45-117); Bilirubin, Direct 0.09 mg/dL (0.00-0.30); Globulin 4.5 g/dL (2.2-4.2); Lipase 130 U/L (73-393); Protein, Total 8.7 g/dL (6.4-8.2)
[2021-05-19 21:39] VITALS: O2SAT 89
[2021-05-19 21:40] VITALS: BP 134/61; PULSE 92; RESP 26; O2SAT 91
--- NOTE | 2021-05-19 22:58 | US_ITS ---
STUDY: ULTRASOUND TRANSVAGINAL CLINICAL: Female, 25 years old. Right adnexal mass. TECHNIQUE: Transvaginal COMPARISON: CT of the abdomen and pelvis, 05/19/2021. FINDINGS: Uterus is anteverted midline, measuring 6.1 x 4.0 x 2.9 cm.. There are no myometrial masses. Endometrium measures 3 mm in thickness and is hyperechoic. There are no endometrial masses, and there is no fluid in the endometrial cavity. Normal uterine cervix. Normal right ovary, measuring 5.3 x 4.3 x 3.9 cm. cm. There is a 3.8 x 2.6 x 2.9 cm solid-appearing mass. The possibility of dense proteinaceous fluid not be ruled out. Normal vascularity and DOPPLER imaging. Normal left ovary, measuring 1.7 x 1.3 x 1.3 cm. There is multiple follicles without dominant mass. Normal vascularity on DOPPLER imaging. There is no free fluid in the pelvis. Polycystic ovary disease: No. US/Transvaginal Non- IMPRESSION: Hypoechoic mass in the right ovary. Proteinaceous fluid versus solid mass. Electronically Signed: Matthew Mendez DO at 23:54 EDT Tel [phone], Service support ,
[2021-05-20 00:17] VITALS: BP 116/80; PULSE 80; RESP 18; O2SAT 96
== END 2021-05-20 00:19 | disposition home or self-care (01) ==
PROVIDERS: Emergency Provider Emergency Medicine; PCP Family Medicine
DX: R10.13 Epigastric pain (principal); F17.210 Nicotine dependence, cigarettes, uncomplicated; F32.9 Major depressive disorder, single episode, unspecified; G43.909 Migraine, unspecified, not intractable, without status migrainosus; Z79.899 Other long term (current) drug therapy
CPT/HCPCS: 74176; 76830; 80048; 80076; 81001; 83690; 84703; 85025; 96361; 96374; 96375; 99283; J7030; J2405

== ENCOUNTER 2021-06-14 22:40 | Emergency (ER) | payer MEDICAID, SELFPAY ==
[2021-06-14 22:41] VITALS: BP 129/83; PULSE 88; RESP 18; TEMP 36.4; O2SAT 99; BMI 29.1
--- NOTE | 2021-06-14 23:00 | ED.VIS.FEGU ---
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 Complaining of pain which is now resolved. She denies any vomiting or fever. She is not . She had both an ultrasound and CAT scan 2 to 3 weeks ago. Has upcoming appointment within a month. 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 Prior similar symptoms: No Recent Illness/Hospitalization: No PFSH PFSH Medical History Anxiety Depression HPV (human papilloma virus) infection IBS (irritable bowel syndrome) Migraines Seizures Home Medications albuterol sulfate [Ventolin Hfa (SP)] 1 puff INHALATION Q4H PRN PRN 07/02/17 [History Last Taken Unknown] sertraline 100 mg PO DAILY 10/18/17 [History Last Taken Unknown] ferrous sulfate 325 mg PO DAILY 10/18/19 [History Last Taken Unknown] omeprazole 40 mg PO DAILY 10/18/19 [History Last Taken Unknown] topiramate 50 mg PO BID 03/16/20 [History Last Taken Unknown] naproxen 500 mg PO BID PRN #20 tab 09/21/20 [Rx Last Taken Unknown] Allergy/AdvReac Type Severity Reaction Status Date / Time amoxicillin Allergy Anaphylaxis Verified 06/14/21 22:44 etonogestrel [From Nexplanon] Allergy Swelling Verified 06/14/21 22:44 lidocaine Allergy Anaphylaxis Verified 06/14/21 22:44 mepivacaine [From Carbocaine] Allergy Swelling Verified 06/14/21 22:44 mushroom Allergy Other Verified 06/14/21 22:44 procaine [From Novocain] Allergy Unknown Verified 06/14/21 22:44 adhesive tape AdvReac Rash Verified 06/14/21 22:44 Social History Smoking Status: Current every day smoker tobacco type: cigarettes ROS ROS ED ROS Narrative Denies. Review of Systems ROS Unobtainable: Denies due to encephalopathy Constitutional Constitutional ED: Denies fever(s) Eyes Eyes: Denies change in vision ENT ENT ED: Denies ear pain Cardiovascular Cardiovascular: Denies chest pain Respiratory/Chest Respiratory/Chest: Denies dyspnea Gastrointestinal Gastrointestinal: Reports abdominal pain; Denies constipation, diarrhea, melena, nausea or vomiting Genitourinary Genitourinary ED: Denies dysuria Musculoskeletal Musculoskeletal: Denies myalgias Integumentary Denies rash Neurologic Neurologic: Denies headache(s) Psychiatric Psychiatric: Denies depression Endocrine Endocrinology: Denies polyuria Hematologic/Lymphatic Hematologic/Lymphatic: Denies easy bruising EXAM Physical Exam Narrative Exam Narrative: Well-appearing female currently no pain. Exam benign. Abdomen nontender. Const Vital Signs: 06/14/21 22:41 Temperature 97.5 F L Temperature Source Temporal Pulse Rate 88 Respiratory Rate 18 Blood Pressure 129/83 H Blood Pressure Mean 98 Pulse Ox 99 Oxygen Delivery Method Room Air Positive well nourished and well developed General Appearance ED: well developed and NAD HEENT Reports moist mucous membranes tenderness; Negative for trauma Eyes PERRL and EOMs intact bilaterally Neck no lymphadenopathy, supple and no JVD Thyroid: Negative for tender Resp normal respiratory effort and clear to auscultation bilaterally Effort and Inspection: pain with movement Cardio regular rate, regular rhythm, S1 normal heart sound, no murmurs and no JVD GI normal to inspection, nondistended, normoactive bowel sounds, soft to palpation, non-tender, non-distended and no masses Auscultation: normoactive bowel sounds; Negative for hypoactive bowel sounds Palpation: Negative for tender, guarding or rigid no CVA tenderness Back/Spine no CVA tenderness Extremity normal to inspection General Extremety ED: Negative for edema or tenderness General Extremity: Negative for edema Neuro oriented x3 Sensorium / Orientation: alert, oriented to person, oriented to place and oriented to time Motor Exam: strength 5/5 throughout Psych mental status grossly normal Skin no rashes or lesions noted and no wounds MDM MDM MDM Narrative Medical decision making narrative: 25-year-old female 2 and half weeks ago was diagnosed with what is believed to be a 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 Patient said follow-up with her [facility] [facility]ER from [facility]. She is scheduled for a repeat ultrasound on the 15 of July. She had pain tonight which is since resolved. No vomiting. No diarrhea. No fever. Exam is benign. Clinically this is not a torsion. She is completely pain-free. She will be seen in outpatient follow-up. Discharge Plan Triage Chief Complaint: Abd Pain ED Provider: Jose Blair Dx/Rx/DC Orders Clinical Impression: Abdominal pain Instructions: Abdominal Pain Prescriptions: No Action albuterol sulfate [Ventolin HFA] 1 INHALER inhaler 1 puff inhalation Q4H PRN PRN (Reason: Wheezing) RF: 0 sertraline 100 MG tablet 100 mg PO DAILY RF: 0 omeprazole 40 MG capsule,delayed release(DR/EC) 40 mg PO DAILY RF: 0 ferrous sulfate 325 MG tablet 325 mg PO DAILY RF: 0 topiramate 50 MG tablet 50 mg PO BID RF: 0 naproxen 500 MG tablet 500 mg PO BID PRN Qty: 20 RF: 0 Primary Care Provider: Galdino Nam Referrals: Galdino Nam MD [Primary Care Provider] - Activity Restrictions/Additional Instructions: Tylenol and/or ibuprofen for pain. Follow-up with your [employer]ER with your scheduled next appointment. Return if severe intractable pain. Disposition Disposition: Home, Self Care
== END 2021-06-14 23:31 | disposition home or self-care (01) ==
LOC: ED 23:07
PROVIDERS: Emergency Provider Emergency Medicine; PCP Family Medicine
DX: R10.9 Unspecified abdominal pain (principal); F41.9 Anxiety disorder, unspecified; F32.9 Major depressive disorder, single episode, unspecified; F17.210 Nicotine dependence, cigarettes, uncomplicated; Z79.899 Other long term (current) drug therapy
CPT/HCPCS: 99282

== ENCOUNTER 2021-07-16 06:13 | Emergency (ER) | payer MEDICAID, SELFPAY ==
[2021-07-16 06:14] VITALS: BP 111/74; PULSE 87; RESP 16; TEMP 36.3; O2SAT 97; BMI 32.5
--- NOTE | 2021-07-16 07:00 | CT_ITS ---
STUDY: CT ABDOMEN AND PELVIS WITH CONTRAST REASON FOR EXAM: Female, 26 years old. Lower abd pain -- IV PO Contrast. History of ovarian cysts. RADIATION DOSAGE (If Supplied By Facility): CTDIvol = ( 17.96 ) mGy, DLP = ( 1232.93 ) mGycm TECHNIQUE: Transaxial images were obtained from the dome of the diaphragm to the symphysis pubis with oral contrast. Oral and amp; IV Gastrografin and amp; 100mL Isovue-370 was administered. Sagittal and coronal images were reconstructed. Individualized dose optimization techniques were used for this CT. COMPARISON: Comparison is made with prior examination dated 05/19/2021. FINDINGS: The visualized lung bases are unremarkable. The visualized portions of the heart are within normal limits. Normal liver. Normal gallbladder and extrahepatic biliary system. Normal spleen. Normal pancreas. Normal bilateral adrenal glands. Normal right kidney. Normal left kidney. Normal visualized stomach. Normal small intestine. Normal colon. The appendix is visualized and appears normal. Normal abdominal aorta. Normal inferior vena cava. Normal retroperitoneum. Normal urinary bladder. There is a 3.6 x 3.5 cm complex cystic mass in the right adnexa. This is essentially unchanged. There is a small umbilical hernia containing fat. Normal osseous structures. CT/Abdomen/Pelvis WITH Contrast IMPRESSION: 3.6 cm x 3.5 cm complex cystic mass in the right adnexa. Electronically Signed: Aj Corbin MD at 9:11 EDT , Service support ,
[2021-07-16] MEDS: Ondansetron 4 MG/2 ML Vial IV (07:27)
[2021-07-16] MEDS: 0.9% Normal Saline 1,000 ML 150 ML IV (07:27)
[2021-07-16] MEDS: Morphine 4 MG/ML Syringe IV (07:27)
[2021-07-16 07:36] LABS: Absolute Lymphocyte Count 2.74 X10^3/uL (0.83-4.51); Absolute Neutrophil Count 5.1 X10^3/uL (2.0-7.7); Basophil# 0.06 X10^3/uL; Basophil% 0.7 % (0-1); Eosinophil# 0.17 X10^3/uL; Eosinophils% 1.9 % (0-5); Hematocrit 40.7 % (37-47); Hemoglobin 12.8 g/dL (12.0-15.0); Lymphocyte # 2.74 X10^3/ul (0.83-4.51); Lymphocyte % 31.3 % (19-41); Mean Corp Hgb Conc 31.4 g/dL (32-36); Mean Corpuscular Hgb 26.4 pg (27.0-32.0); Mean Corpuscular Volume 83.9 fL (81-99); Monocyte# 0.64 X10^3/uL; Monocyte% 7.3 % (0-10); NRBC Flagged by Analyzer 0 % (0-5); Neutrophil # 5.13 X10^3/uL (2.7-7.7); Neutrophil % 58.6 % (47-70); Platelet Count 356 K/mm3 (150-450); RBC Distribution Width CV 14.8 % (11.6-14.6); RBC Distribution Width SD 45.1 fl (35.1-43.9); Red Blood Count 4.85 M/mm3 (4.2-5.4); White Blood Count 8.8 K/mm3 (4.4-11.0)
[2021-07-16 07:46] LABS: Anion Gap 6 (5-15); BUN 11 mg/dL (7-18); BUN/Creat Ratio 16.6 RATIO (10-20); Calcium,Total 8.9 mg/dL (8.5-10.1); Chloride 109 mmol/L (98-107); Creatinine, Serum 0.66 mg/dL (0.55-1.02); EST Glomerular Filtration Rate 116 mL/min (>60); Est Glom Filt Rate - Afr Amer 141 mL/min (>60); Estimated Creatinine Clearance 127.81 ml/min; Glucose 112 mg/dL (74-106); Potassium 3.6 mmol/L (3.5-5.1); Sodium Level 140 mmol/L (136-145)
[2021-07-16 07:47] LABS: Internal QC Validated? YES +Cl - CLEAR BKGD; Pregnancy, Serum, hCG Quali. NEGATIVE Negative
--- NOTE | 2021-07-16 08:10 | EX.ED.DYSGE1 ---
HPI History of Present Illness Chief Complaint: Abd Pain Informant: patient Onset/Context/Timing Onset: Today Current Severity: Moderate Maximum Severity: Moderate Narrative Narrative: Patient states she was awoken this morning secondary to lower abdominal pain. It is across the lower abdomen is now wrapping around to her right back. She states she did have some diarrhea this morning. Patient has a history of IBS but states this does not feel similar. She did recently have a UTI but states her symptoms resolved after taking antibiotic. PFSH PFSH Medical History Anxiety Depression HPV (human papilloma virus) infection IBS (irritable bowel syndrome) Migraines Seizures Home Medications albuterol sulfate [Ventolin Hfa (SP)] 1 puff INHALATION Q4H PRN PRN 07/02/17 [History Last Taken Unknown] sertraline 100 mg PO DAILY 10/18/17 [History Last Taken Unknown] ferrous sulfate 325 mg PO DAILY 10/18/19 [History Last Taken Unknown] topiramate 50 mg PO BID 03/16/20 [History Last Taken Unknown] hydrocodone-acetaminophen 1 tab PO Q6H PRN 3 Days #10 tab 07/16/21 [Rx Last Taken Unknown] ibuprofen 800 mg PO Q6H 07/16/21 [History Last Taken Unknown] Allergy/AdvReac Type Severity Reaction Status Date / Time amoxicillin Allergy Anaphylaxis Verified 07/16/21 06:16 etonogestrel [From Nexplanon] Allergy Swelling Verified 07/16/21 06:16 lidocaine Allergy Anaphylaxis Verified 07/16/21 06:16 mepivacaine [From Carbocaine] Allergy Swelling Verified 07/16/21 06:16 mushroom Allergy Other Verified 07/16/21 06:16 procaine [From Novocain] Allergy Unknown Verified 07/16/21 06:16 adhesive tape AdvReac Rash Verified 07/16/21 06:16 Social History Smoking Status: Current every day smoker tobacco type: cigarettes ROS ROS ED Constitutional Constitutional ED: Denies chills or fever(s) Eyes Eyes: Denies change in vision ENT ENT ED: Denies sore throat Cardiovascular Cardiovascular: Denies chest pain Respiratory/Chest Respiratory/Chest: Denies cough or dyspnea Gastrointestinal Gastrointestinal: Reports abdominal pain and diarrhea; Denies nausea or vomiting Genitourinary Genitourinary ED: Denies dysuria or urinary frequency Musculoskeletal Musculoskeletal: Reports back pain Integumentary Denies rash Neurologic Neurologic: Denies headache(s) or weakness Psychiatric Psychiatric: Denies anxiety or depression Endocrine Endocrinology: Denies polydipsia or polyuria Allergic/Immunologic Allergic/Immunologic ED: Denies urticaria EXAM Physical Exam Const Vital Signs: 07/16/21 06:14 07/16/21 10:10 Temperature 97.4 F L Temperature Source Temporal Pulse Rate 87 72 Respiratory Rate 16 15 Blood Pressure 111/74 134/66 H Blood Pressure Mean 86 Pulse Ox 97 98 Oxygen Delivery Method Room Air Positive well nourished and well developed General Appearance ED: well developed HEENT Reports normocephalic and head/scalp atraumatic Eyes PERRL and EOMs intact bilaterally Neck supple Chest Wall inspection of chest normal and palpation of chest normal Resp normal respiratory effort and clear to auscultation bilaterally Cardio regular rate and regular rhythm GI Palpation: soft and tender other (Mild tenderness across the lower abdomen. No guarding or rebound.) Extremity normal to inspection Neuro oriented x3 and no sensory deficits noted Sensorium / Orientation: alert Motor Exam: strength 5/5 throughout Psych mental status grossly normal Skin no rashes or lesions noted MDM MDM MDM Narrative Medical decision making narrative: Lab work, urinalysis, CT abdomen and pelvis obtained. Patient was given a dose of morphine and Zofran for pain. IV fluids were provided. Lab Data Attestation: I reviewed the patient's lab results. Labs: Laboratory Results - last 24 hr 07/16/21 07/16/21 07/16/21 06:19 06:19 07:24 WBC 8.8 RBC 4.85 Hgb 12.8 Hct 40.7 MCV 83.9 MCH 26.4 L MCHC 31.4 L RDW Std Deviation 45.1 H RDW Coeff of Phi 14.8 H Plt Count 356 MPV 10.0 Immature Gran % (Auto) 0.200 Neut % (Auto) 58.6 Lymph % (Auto) 31.3 [place] % (Auto) 7.3 Eos % (Auto) 1.9 Baso % (Auto) 0.7 Absolute Neuts (auto) 5.1 Absolute Lymphs (auto) 2.74 Nucleated RBC % 0 Sodium 140 Potassium 3.6 Chloride 109 H Carbon Dioxide 25.0 Anion Gap 6 BUN 11 Creatinine 0.66 Estim Creat Clear Calc 127.81 Est GFR (MDRD) Af Amer 141 Est GFR (MDRD) Non-Af 116 BUN/Creatinine Ratio 16.6 Glucose 112 H Calcium 8.9 Serum , Qual NEGATIVE Urine Color Urine Clarity Urine pH Ur Specific [place] Urine Protein Urine Glucose (UA) Urine Ketones Urine Occult Blood Urine Nitrite Urine Bilirubin Urine Urobilinogen Ur Leukocyte Esterase Urine RBC Urine WBC Ur Squamous Epith Cells Urine Bacteria Urine Mucus 07/16/21 08:10 WBC RBC Hgb Hct MCV MCH MCHC RDW Std Deviation RDW Coeff of Phi Plt Count MPV Immature Gran % (Auto) Neut % (Auto) Lymph % (Auto) [place] % (Auto) Eos % (Auto) Baso % (Auto) Absolute Neuts (auto) Absolute Lymphs (auto) Nucleated RBC % Sodium Potassium Chloride Carbon Dioxide Anion Gap BUN Creatinine Estim Creat Clear Calc Est GFR (MDRD) Af Amer Est GFR (MDRD) Non-Af BUN/Creatinine Ratio Glucose Calcium Serum , Qual Urine Color Yellow Urine Clarity Clear Urine pH 6.0 Ur Specific [place] 1.010 Urine Protein Negative Urine Glucose (UA) Normal Urine Ketones Negative Urine Occult Blood Negative Urine Nitrite Negative Urine Bilirubin Negative Urine Urobilinogen Normal Ur Leukocyte Esterase Negative Urine RBC 0 SEEN Urine WBC 0 SEEN Ur Squamous Epith Cells 0-5 SEEN Urine Bacteria 0 SEEN Urine Mucus 0 SEEN Radiography Diagnostic Testing: Radiology Impression Abdomen/Pelvis CT 07/16/21 07:00 IMPRESSION: 3.6 cm x 3.5 cm complex cystic mass in the right adnexa. Electronically Signed: Aj Corbin MD at 9:11 EDT , Service support , Treatment and Re-Evaluation Comments:: Lab work is unremarkable. Urinalysis clean with negative test. CT scan of the abdomen and pelvis reveals a cyst in the right adnexa. Patient states that her TRIAGE TECHNICIAN is currently working this up and it is felt to be a dermoid. Patient's exam and findings were not consistent with ovarian torsion I do not feel she needs emergent ultrasound at this time. Patient will continue supportive care and follow-up with her TRIAGE TECHNICIAN as planned Short course of analgesics ordered. Return instructions given. Discharge Plan Triage Chief Complaint: Abd Pain ED Provider: Deborah Shell Dx/Rx/DC Orders Clinical Impression: Abdominal pain Instructions: ED Abdominal Pain Unkn Cause Fem Prescriptions: New hydrocodone-acetaminophen 5-325 mg tablet 1 tab PO Q6H PRN (Reason: pain) 3 Days Qty: 10 RF: 0 No Action albuterol sulfate [Ventolin HFA] 1 INHALER inhaler 1 puff inhalation Q4H PRN PRN (Reason: Wheezing) RF: 0 sertraline 100 MG tablet 100 mg PO DAILY RF: 0 ferrous sulfate 325 MG tablet 325 mg PO DAILY RF: 0 topiramate 50 MG tablet 50 mg PO BID RF: 0 ibuprofen 800 mg Tablet 800 mg PO Q6H RF: 0 Primary Care Provider: Galdino Nam Referrals: Galdino Nam MD [Primary Care Provider] - As Needed Activity Restrictions/Additional Instructions: As discussed, please follow-up with your WEB ANALYST as scheduled. Please schedule the ultrasound that we discussed. Disposition Disposition: Home, Self Care Discharge Date/Time: 07/16/21 10:13
[2021-07-16 08:14] LABS: Bacteria 0 SEEN /hpf (None Seen); Mucous, Urine 0 SEEN /hpf (<or=2+); Red Blood Cells-Urine 0 SEEN /hpf (0-5); White Blood Cells 0 SEEN /hpf (0-5)
[2021-07-16 08:18] LABS: Color, Urine Yellow (Yellow); Glucose, Dipstick Normal (Normal); Ketone-Dipstick Negative (Negative); Leukocyte Esterase-Dipstick Negative /ul (Negative); Nitrite-Dipstick Negative (Negative); Occult Blood-Urine Negative /ul (Negative); Protein-Dipstick Negative (Negative); Urine Bilirubin Dipstick Negative (Negative); Urine Clarity Clear (Clear); Urine Urobilinogen Normal (Normal)
[2021-07-16 08:26] LABS: Squamous Epithelial Cells - UA 0-5 SEEN /hpf (5-10)
[2021-07-16 10:10] VITALS: BP 134/66; PULSE 72; RESP 15; O2SAT 98
== END 2021-07-16 10:13 | disposition home or self-care (01) ==
PROVIDERS: Emergency Provider Emergency Medicine; PCP Family Medicine
DX: R10.30 Lower abdominal pain, unspecified (principal); F17.210 Nicotine dependence, cigarettes, uncomplicated; F32.9 Major depressive disorder, single episode, unspecified; R56.9 Unspecified convulsions; Z79.899 Other long term (current) drug therapy
CPT/HCPCS: 74177; 80048; 81001; 84703; 85025; 96361; 96374; 96375; 99284; J7030; Q9967; A4216; J2405

== ENCOUNTER 2021-09-20 12:24 | Emergency (ER) | payer MEDICAID, SELFPAY ==
[2021-09-20 12:24] VITALS: BP 108/76; PULSE 89; RESP 16; TEMP 37; O2SAT 97; BMI 32.3
--- NOTE | 2021-09-20 15:22 | EX.ED.UPPERE ---
HPI History of Present Illness Chief Complaint: Upper Extremity Injury Detail of Chief Complaint: Since surgery September 03 and abnormal vaginal bleeding Informant: patient Occured/Mechanism Mechanism/Context: Yes unknown Onset/Context/Timing Onset: Weeks (Approximately 2 weeks ago, September 03) Context: Sudden Onset Timing: Continuous Quality of Pain: Dull and Aching Location: Right trapezius, shoulder and arm Current Severity: Mild Maximum Severity: Moderate Worsened by: Movement and use Relieved by: Nothing Associated Symptoms Associated Symptoms: Negative for Parasthesia, Weakness and Loss of Funtion Narrative Narrative: Patient is a 26-year-old who presents because of right upper extremity pain since surgery and abnormal vaginal bleeding. She states she saw a specialist not affiliated with [facility]. She had a dermoid cyst that was removed laparoscopically. This is her second dermoid cyst. She had abnormal vaginal bleeding since surgery. She was told by her ENTRY LEVEL STAFF ACCOUNTANT that she should not be having bleeding. She has received Depo shot. She has not had intercourse since surgery. She had a negative test prior to surgery. She has no symptoms of . The arm pain involves the right trapezius right proximal shoulder/arm and radiates to the antecubital fossa. Described as a pain sensation. She denies fever, chills night sweats. There is no history of trauma. She did not inquire here why she had pain after surgery. She did not asked the surgeon or the anesthesiologist. She states the surgery took 3 to 4 hours. She denies chest pain, shortness of breath or difficulty breathing. The pain is not positional. The pain is not pleuritic. Tetanus Immunization: 5-10 years Prior similar symptoms: Yes Recent Illness/Hospitalization: Yes [facility] Medical History (Updated 09/20/21 @ 16:[address] Pola Garza MD) ADHD Anemia Anxiety Depression Dermoid cyst of right ovary HPV (human papilloma virus) infection IBS (irritable bowel syndrome) Migraines Seizures Home Medications albuterol sulfate [Ventolin Hfa (SP)] 1 puff INHALATION Q4H PRN PRN 07/02/17 [History Last Taken Unknown] sertraline 100 mg PO DAILY 10/18/17 [History Last Taken Unknown] ferrous sulfate 325 mg PO DAILY 10/18/19 [History Last Taken Unknown] topiramate 50 mg PO BID 03/16/20 [History Last Taken Unknown] hydrocodone-acetaminophen 1 tab PO Q6H PRN 3 Days #10 tab 07/16/21 [Rx Last Taken Unknown] ibuprofen 800 mg PO Q6H 07/16/21 [History Last Taken Unknown] Allergy/AdvReac Type Severity Reaction Status Date / Time amoxicillin Allergy Anaphylaxis Verified 09/20/21 15:54 bee venom protein (honey bee) Allergy Swelling Verified 09/20/21 15:54 etonogestrel [From Nexplanon] Allergy Swelling Verified 09/20/21 15:54 lidocaine Allergy Anaphylaxis Verified 09/20/21 15:54 mepivacaine [From Carbocaine] Allergy Swelling Verified 09/20/21 15:54 mushroom Allergy Other Verified 09/20/21 15:54 procaine [From Novocain] Allergy Unknown Verified 09/20/21 15:54 adhesive tape AdvReac Rash Verified 09/20/21 15:54 Social History (Updated 09/20/21 @ 15:[address] Pola Garza MD) household members: friend(s) Smoking Status: Current every day smoker tobacco type: cigarettes alcohol intake: current alcohol intake frequency: other substance use type: does not use ROS ROS ED Constitutional Constitutional ED: Denies chills, fever(s), subjective, sweats or weight loss Eyes Eyes: Denies blurry vision or change in vision ENT ENT ED: Denies ear pain, rhinorrhea or sore throat Cardiovascular Cardiovascular: Denies chest pain, palpitations or racing heartbeat Respiratory/Chest Respiratory/Chest: Denies cough, dyspnea, dyspnea on exertion or sputum Gastrointestinal Gastrointestinal: Denies abdominal pain, constipation, diarrhea, nausea or vomiting Genitourinary Genitourinary ED: Reports other Details: Abnormal vaginal bleeding since surgery, which patient states she was told was abnormal. ; Denies dysuria, hematuria or urinary frequency Musculoskeletal Musculoskeletal: Denies back pain, myalgias or neck pain Integumentary Denies rash Neurologic Neurologic: Denies headache(s) or weakness Hematologic/Lymphatic Hematologic/Lymphatic: Denies easy bleeding or easy bruising EXAM Physical Exam Const Vital Signs: 09/20/21 12:24 Temperature 98.6 F Temperature Source Oral Pulse Rate 89 Respiratory Rate 16 Blood Pressure 108/76 Blood Pressure Mean 86 Pulse Ox 97 Oxygen Delivery Method Nasal Cannula Positive well nourished, well developed and obese General Appearance ED: well developed and NAD Nutritional Appearance: obese HEENT Reports moist mucous membranes normocephalic and atraumatic Eyes PERRL and EOMs intact bilaterally Neck full ROM and supple General: tenderness Chest Wall inspection of chest normal and palpation of chest normal Resp normal respiratory effort and clear to auscultation bilaterally Cardio regular rate, regular rhythm, S1 normal heart sound, S2 normal heart sound and no murmurs GI non-tender, non-distended and no masses GI Narrative: Port sites are healing without evidence of infection. Inspection: Negative for abdominal distention Auscultation: normoactive bowel sounds and hypoactive bowel sounds Palpation: soft; Negative for tender, guarding or rebound tenderness present Back/Spine no CVA tenderness Neuro oriented x3, CN's II-XII intact bilaterally and moves all extremities Neuro Narrative: Bicep, brachioradialis and tricep reflex are 1-2+ and symmetric. Sensorium / Orientation: alert Psych mental status grossly normal Skin Lesions: no lesions Rashes: no rashes Trauma: no lacerations or abrasions MDM MDM MDM Narrative Medical decision making narrative: CBC was obtained assess white count and H&H especially since she is had bleeding for 2 weeks. X-ray was obtained to determine if there is an explanation for her shoulder pain/arm pain. History and physical are not consistent with a brachial plexus injury or nerve root injury. Lab Data Attestation: I reviewed the patient's lab results. Lab results narrative: H&H unremarkable. Radiography Diagnostic Testing: Three-view x-ray of the shoulder is normal. There is no degenerative changes or any abnormalities noted. There is no asymmetry of the joint spaces. Discharge Plan Triage Chief Complaint: Upper Extremity Injury ED Provider: Pola Garza Dx/Rx/DC Orders Clinical Impression: Pain, joint, shoulder region, right, Vaginal bleeding, abnormal Instructions: ED Dysfunctional Uterine Bleeding, ED Pain, Acute, Uncertain Cause Prescriptions: No Action albuterol sulfate [Ventolin HFA] 1 INHALER inhaler 1 puff inhalation Q4H PRN PRN (Reason: Wheezing) RF: 0 sertraline 100 MG tablet 100 mg PO DAILY RF: 0 ferrous sulfate 325 MG tablet 325 mg PO DAILY RF: 0 topiramate 50 MG tablet 50 mg PO BID RF: 0 ibuprofen 800 mg Tablet 800 mg PO Q6H RF: 0 hydrocodone-acetaminophen 5-325 mg tablet 1 tab PO Q6H PRN (Reason: pain) 3 Days Qty: 10 RF: 0 Primary Care Provider: Galdino Nam Referrals: Galdino Nam MD [Primary Care Provider] - Doctor,Surgeon, [STAFF PHYSICIAN] - Keep Tao appointment Disposition Disposition: Home, Self Care
[2021-09-20 15:49] VITALS: BP 110/82; PULSE 84; RESP 16; TEMP 36.9; O2SAT 98
[2021-09-20 15:52] LABS: Absolute Lymphocyte Count 1.98 X10^3/uL (0.83-4.51); Absolute Neutrophil Count 4.4 X10^3/uL (2.0-7.7); Basophil# 0.06 X10^3/uL; Basophil% 0.8 % (0-1); Eosinophil# 0.24 X10^3/uL; Eosinophils% 3.3 % (0-5); Hematocrit 42.1 % (37-47); Hemoglobin 13.2 g/dL (12.0-15.0); Lymphocyte # 1.98 X10^3/ul (0.83-4.51); Lymphocyte % 27.2 % (19-41); Mean Corp Hgb Conc 31.4 g/dL (32-36); Mean Corpuscular Hgb 26.8 pg (27.0-32.0); Mean Corpuscular Volume 85.6 fL (81-99); Mean Platelet Vol. 9.3 fl (6.2-12.0); Monocyte# 0.55 X10^3/uL; Monocyte% 7.6 % (0-10); NRBC Flagged by Analyzer 0 % (0-5); Neutrophil # 4.42 X10^3/uL (2.7-7.7); Neutrophil % 60.8 % (47-70); Platelet Count 352 K/mm3 (150-450); RBC Distribution Width CV 14.4 % (11.6-14.6); RBC Distribution Width SD 44.8 fl (35.1-43.9); Red Blood Count 4.92 M/mm3 (4.2-5.4); White Blood Count 7.3 K/mm3 (4.4-11.0)
--- NOTE | 2021-09-20 16:00 | RAD_ITS ---
STUDY: X-RAY - RIGHT SHOULDER REASON FOR EXAM: Female, 26 years old. PT C/O RIGHT SHOULDER PAIN SINCE 09/03 WHEN SHE HAD SURGERY ON ABD TECHNIQUE: 4 view(s) of the shoulder. COMPARISON: None. FINDINGS: Normal glenohumeral articulation. Normal acromioclavicular joint. Normal acromion. Normal humeral head and visualized proximal humerus. The soft tissue structures are unremarkable. Normal visualized pulmonary apex. RAD/Shoulder min 2 Views IMPRESSION: Normal x-ray examination of the shoulder. Electronically Signed: Jim Arizmendi MD ([place]) at 16:26 EDT , Service support ,
[2021-09-20 16:04] LABS: Anion Gap 8 (5-15); BUN 7 mg/dL (7-18); BUN/Creat Ratio 9.7 RATIO (10-20); Calcium,Total 9.3 mg/dL (8.5-10.1); Chloride 109 mmol/L (98-107); Creatinine, Serum 0.72 mg/dL (0.55-1.02); EST Glomerular Filtration Rate 106 mL/min (>60); Est Glom Filt Rate - Afr Amer 128 mL/min (>60); Estimated Creatinine Clearance 117.16 ml/min; Glucose 73 mg/dL (74-106); Potassium 3.5 mmol/L (3.5-5.1); Sodium Level 142 mmol/L (136-145)
[2021-09-20] MEDS: Ketorolac 15 MG/ML Vial IV (16:25)
[2021-09-20 16:49] VITALS: PULSE 88; RESP 16; O2SAT 97
== END 2021-09-20 16:50 | disposition home or self-care (01) ==
PROVIDERS: Emergency Provider Emergency Medicine; PCP Family Medicine
DX: M25.511 Pain in right shoulder (principal); N93.9 Abnormal uterine and vaginal bleeding, unspecified; F41.9 Anxiety disorder, unspecified; F32.A Depression, unspecified; F90.9 Attention-deficit hyperactivity disorder, unspecified type; F17.210 Nicotine dependence, cigarettes, uncomplicated; E66.9 Obesity, unspecified; Z79.899 Other long term (current) drug therapy
CPT/HCPCS: 73030; 80048; 85025; 96374; 99283; A4216

== ENCOUNTER 2021-10-05 20:07 | Emergency (ER) | payer MEDICAID, SELFPAY ==
[2021-10-05 20:07] VITALS: BP 141/99; PULSE 130; RESP 20; TEMP 37.2; O2SAT 94; BMI 31.6
[2021-10-05 20:30] VITALS: O2SAT 94
[2021-10-05 20:36] VITALS: PULSE 105; RESP 27; O2SAT 94
[2021-10-05 21:04] VITALS: PULSE 101; RESP 24
[2021-10-05] MEDS: Ipratropium/Albuterol Sulfate 3 ML AMPUL.NEB INHALATION (21:04)
[2021-10-05 21:07] LABS: Absolute Lymphocyte Count 1.42 X10^3/uL (0.83-4.51); Absolute Neutrophil Count 8.9 X10^3/uL (2.0-7.7); Basophil# 0.08 X10^3/uL; Basophil% 0.7 % (0-1); Eosinophil# 0.63 X10^3/uL; Eosinophils% 5.3 % (0-5); Hematocrit 40.9 % (37-47); Hemoglobin 13.4 g/dL (12.0-15.0); Lymphocyte # 1.42 X10^3/ul (0.83-4.51); Lymphocyte % 11.9 % (19-41); Mean Corp Hgb Conc 32.8 g/dL (32-36); Mean Corpuscular Hgb 27.3 pg (27.0-32.0); Mean Corpuscular Volume 83.3 fL (81-99); Mean Platelet Vol. 9.6 fl (6.2-12.0); Monocyte# 0.86 X10^3/uL; Monocyte% 7.2 % (0-10); NRBC Flagged by Analyzer 0 % (0-5); Neutrophil # 8.94 X10^3/uL (2.7-7.7); Neutrophil % 74.6 % (47-70); Platelet Count 318 K/mm3 (150-450); RBC Distribution Width CV 14.1 % (11.6-14.6); RBC Distribution Width SD 42.6 fl (35.1-43.9); Red Blood Count 4.91 M/mm3 (4.2-5.4)
[2021-10-05 21:16] LABS: Anion Gap 6 (5-15); BUN 7 mg/dL (7-18); BUN/Creat Ratio 8.5 RATIO (10-20); Calcium,Total 9.3 mg/dL (8.5-10.1); Chloride 106 mmol/L (98-107); Creatinine, Serum 0.82 mg/dL (0.55-1.02); EST Glomerular Filtration Rate 91 mL/min (>60); Est Glom Filt Rate - Afr Amer 110 mL/min (>60); Estimated Creatinine Clearance 102.88 ml/min; Glucose 128 mg/dL (74-106); Potassium 3.6 mmol/L (3.5-5.1); Sodium Level 137 mmol/L (136-145)
--- NOTE | 2021-10-05 21:25 | RAD_ITS ---
INDICATION: Dyspnea EXAMINATION/TECHNIQUE: X-RAY - XR Chest 1 View COMPARISON: Chest x-ray 01/14/2020. FINDINGS: LINES/DEVICES: None. LUNGS: Symmetric normal lung volumes. No airspace opacity or abnormal interstitial pattern. No nodule or mass. No pleural effusion or pneumothorax. MEDIASTINUM AND CARDIOVASCULAR STRUCTURES: Normal size and contour of the cardiomediastinal silhouette. No evidence of pulmonary vascular congestion. BONES AND SOFT TISSUES: No abnormality within limits of the exam. RAD/Chest 1 View (Portable) IMPRESSION: 1. No radiographic evidence of acute cardiopulmonary disease. Electronically Signed: Marco Morales DO at 22:30 EST Tel , Service support ,
[2021-10-05 22:21] VITALS: BP 111/85; PULSE 110; RESP 27; O2SAT 97
--- NOTE | 2021-10-05 23:03 | EDS_ITS ---
HPI History of Present Illness Chief Complaint: Shortness of Breath Informant: patient Onset/Context/Timing Onset: Days (3) Context: gradual Timing: Continuous Quality: Positive for Dyspnea on exertion and - (Like a knot in my throat) Worsened by: Nothing Relieved by: - (Sitting up) Associated Symptoms cough, rhinorrhea, sore throat, subjective, chills, yellow sputum and green sputum; Negative for post nasal drip, ear pain, fever, clear sputum or white sputum Chest Pain: Positive for Dull Narrative Narrative: Patient presents with shortness of breath that has been getting worse over the past 3 days. Patient states it feels like there is a knot in my throat. Patient states it is better when she sits up. Patient states nothing seems to make it worse. Patient states it has been constant for the past 3 days. Patient admits to a cough with some yellow and green sputum. Patient also admits to some rhinorrhea and sore throat. Patient admits to some subjecti ve chills. Patient states she checked her temperature and it was 99 at home. Patient admits to some pain in her chest. Patient denies any nausea or vomiting. [facility] Medical History (Updated 10/06/21 @ 01:[address] Kurt Lares, DO) ADHD Anemia Anxiety Depression Dermoid cyst of right ovary HPV (human papilloma virus) infection IBS (irritable bowel syndrome) Migraines Seizures Home Medications albuterol sulfate [Ventolin Hfa (SP)] 1 puff INHALATION Q4H PRN PRN 07/02/17 [History Last Taken Unknown] sertraline 100 mg PO DAILY 10/18/17 [History Last Taken Unknown] ferrous sulfate 325 mg PO DAILY 10/18/19 [History Last Taken Unknown] topiramate 50 mg PO BID 03/16/20 [History Last Taken Unknown] hydrocodone-acetaminophen 1 tab PO Q6H PRN 3 Days #10 tab 07/16/21 [Rx Last Taken Unknown] ibuprofen 800 mg PO Q6H 07/16/21 [History Last Taken Unknown] Allergy/AdvReac Type Severity Reaction Status Date / Time amoxicillin Allergy Anaphylaxis Verified 10/05/21 20:09 bee venom protein (honey bee) Allergy Swelling Verified 10/05/21 20:09 etonogestrel [From Nexplanon] Allergy Swelling Verified 10/05/21 20:09 lidocaine Allergy Anaphylaxis Verified 10/05/21 20:09 mepivacaine [From Carbocaine] Allergy Swelling Verified 10/05/21 20:09 mushroom Allergy Other Verified 10/05/21 20:09 procaine [From Novocain] Allergy Unknown Verified 10/05/21 20:09 adhesive tape AdvReac Rash Verified 10/05/21 20:09 Surgical History (Updated 10/05/21 @ 23:[address] Kurt Lares DO) Hx of laparoscopy Social History household members: friend(s) Smoking Status: Current every day smoker tobacco type: cigarettes alcohol intake: current alcohol intake frequency: other substance use type: does not use ROS ROS ED Constitutional Constitutional ED: Reports chills; Denies fever(s) Eyes Eyes: Denies blurry vision or change in vision ENT ENT ED: Reports rhinorrhea and sore throat Cardiovascular Cardiovascular: Reports chest pain; Denies palpitations Respiratory/Chest Respiratory/Chest: Reports cough and dyspnea Gastrointestinal Gastrointestinal: Denies nausea or vomiting Genitourinary Genitourinary ED: Denies dysuria or hematuria Musculoskeletal Musculoskeletal: Reports back pain and neck pain Integumentary Denies abscess or rash Neurologic Neurologic: Reports headache(s); Denies weakness Allergic/Immunologic Allergic/Immunologic ED: Denies mouth swelling or urticaria EXAM Physical Exam Const Vital Signs: 10/05/21 20:07 10/05/21 20:30 10/05/21 20:36 Temperature 98.9 F Temperature Source Temporal Pulse Rate 130 H 105 H Respiratory Rate 20 H 27 H Respiratory Effort Short of Breath Labored Respiratory Pattern Tachypnea Blood Pressure 141/99 H Blood Pressure Mean 113 Pulse Ox 94 94 Oxygen Delivery Method Room Air Room Air Room Air 10/05/21 21:04 10/05/21 22:21 10/06/21 00:45 Temperature Temperature Source Pulse Rate 101 H 110 H 86 Respiratory Rate 24 H 27 H 24 H Respiratory Effort Respiratory Pattern Tachypnea Blood Pressure 111/85 H 100/71 Blood Pressure Mean 93 80 Pulse Ox 97 93 Oxygen Delivery Method Room Air Positive well nourished and well developed General Appearance ED: well developed HEENT Reports moist mucous membranes Neck supple and no JVD Resp normal respiratory effort and clear to auscultation bilaterally Cardio regular rate, regular rhythm and no murmurs GI normal to inspection, nondistended, normoactive bowel sounds and non-tender Palpation: soft Extremity normal to inspection General Extremety ED: Negative for edema or tenderness General Extremity: Negative for edema Neuro oriented x3, CN's II-XII intact bilaterally and no sensory deficits noted Sensorium / Orientation: alert Motor Exam: strength 5/5 throughout Psych mental status grossly normal Skin no rashes or lesions noted MDM MDM MDM Narrative Medical decision making narrative: Patient was given a DuoNeb here. CBC shows a slight leukocytosis of 12.0. Basic metabolic profile is within normal limits. Portable 1 view chest x-ray was obtained. On my interpretation, lung matthews are clear. There is normal cardiac silhouette. Bony thorax is normal. There is no acute process noted. Radiologist also interpreted the x-ray and agrees. On reevaluation, patient was still somewhat tachypneic at 27 breaths/min. Because of this, CTA of the chest was obtained. There is no evidence for pulmonary embolus. There is no aortic dissection noted. This was interpreted by the radiologist and reviewed by myself. Patient was advised of her findings. Patient was instructed to follow-up with her primary care physician in 3-5 days. Patient understood and was agreeable with the plan. All questions were answered. Lab Data Attestation: I reviewed the patient's lab results. Labs: Laboratory Results - last 24 hr 10/05/21 10/05/21 20:22 20:22 WBC 12.0 H RBC 4.91 Hgb 13.4 Hct 40.9 MCV 83.3 MCH 27.3 MCHC 32.8 RDW Std Deviation 42.6 RDW Coeff of Phi 14.1 Plt Count 318 MPV 9.6 Immature Gran % (Auto) 0.300 Neut % (Auto) 74.6 H Lymph % (Auto) 11.9 L [place] % (Auto) 7.2 Eos % (Auto) 5.3 H Baso % (Auto) 0.7 Absolute Neuts (auto) 8.9 H Absolute Lymphs (auto) 1.42 Nucleated RBC % 0 Sodium 137 Potassium 3.6 Chloride 106 Carbon Dioxide 25.0 Anion Gap 6 BUN 7 Creatinine 0.82 Estim Creat Clear Calc 102.88 Est GFR (MDRD) Af Amer 110 Est GFR (MDRD) Non-Af 91 BUN/Creatinine Ratio 8.5 L Glucose 128 H Calcium 9.3 Radiography Chest X-Ray - ED: 1 View, Read by ED Physician, Read by Radiologist and Normal Diagnostic Testing: Clinical Impression(s) from Imaging Studies Chest X-Ray 10/05/21 21:25 IMPRESSION: 1. No radiographic evidence of acute cardiopulmonary disease. Electronically Signed: Marco Morales DO at 22:30 EST Tel , Service support , Chest CTA 10/05/21 23:09 IMPRESSION: No CTA demonstrated pulmonary embolism or arterial dissection. Electronically Signed: Darlin Ford MD at 0:41 EST , Service support , Discharge Plan Triage Chief Complaint: Shortness of Breath ED Provider: Kurt Lares Dx/Rx/DC Orders Clinical Impression: Dyspnea Instructions: ED Dyspnea Prescriptions: No Action albuterol sulfate [Ventolin HFA] 1 INHALER inhaler 1 puff inhalation Q4H PRN PRN (Reason: Wheezing) RF: 0 sertraline 100 MG tablet 100 mg PO DAILY RF: 0 ferrous sulfate 325 MG tablet 325 mg PO DAILY RF: 0 topiramate 50 MG tablet 50 mg PO BID RF: 0 ibuprofen 800 mg Tablet 800 mg PO Q6H RF: 0 hydrocodone-acetaminophen 5-325 mg tablet 1 tab PO Q6H PRN (Reason: pain) 3 Days Qty: 10 RF: 0 Stand Alone Forms: ED Work / School Excuse Primary Care Provider: Galdino Nam Referrals: Galdino Nam MD [Primary Care Provider] - 3-5 Days Disposition Disposition: Home, Self Care
--- NOTE | 2021-10-05 23:09 | CT_ITS ---
STUDY: CTA CHEST REASON FOR EXAM: Female, 26 years old. Dyspnea RADIATION DOSAGE (If Supplied By Facility): CTDIvol = ( 13.77 ) mGy, DLP = ( 458.40 ) mGycm TECHNIQUE: The examination was performed with the intravenous administration of 100 mL of Isovue-370. Post-processing of the angiographic images was performed, with multiplanar reformation and 3D reconstruction. Individualized dose optimization techniques were used for this CT. COMPARISON: None. FINDINGS: Cardiac monitoring leads are present. Normal enhancement of the main pulmonary artery and right and left pulmonary arteries. Normal enhancement of the bilateral peripheral pulmonary arteries. There is no demonstrated pulmonary embolism. Normal thoracic aorta and visualized great vessels. There is no demonstrated aortic dissection. Normal heart and pericardium. There are prominent mediastinal lymph nodes. Normal hilar regions. Normal visualized trachea and bronchi. The lungs are well expanded. Normal pulmonary parenchyma. Normal pleura. Normal chest wall structures. Normal osseous structures. Normal visualized upper abdomen. CT/CTA Chest W/WO Contrast IMPRESSION: No CTA demonstrated pulmonary embolism or arterial dissection. Electronically Signed: Darlin Ford MD at 0:41 EST , Service support ,
[2021-10-06 00:45] VITALS: BP 100/71; PULSE 86; RESP 24; O2SAT 93
== END 2021-10-06 01:46 | disposition home or self-care (01) ==
PROVIDERS: Emergency Provider Emergency Medicine; PCP Family Medicine
DX: R06.00 Dyspnea, unspecified (principal); F41.9 Anxiety disorder, unspecified; F32.A Depression, unspecified; F17.210 Nicotine dependence, cigarettes, uncomplicated; Z79.899 Other long term (current) drug therapy
CPT/HCPCS: 71045; 71275; 80048; 85025; 94640; 99284; J7030; Q9967; A4216

== ENCOUNTER 2021-10-09 21:00 | Emergency (ER) | payer MEDICAID, SELFPAY ==
[2021-10-09 21:01] VITALS: BP 128/94; PULSE 87; RESP 16; TEMP 36.6; O2SAT 98; BMI 32.5
--- NOTE | 2021-10-09 21:25 | EKG12_ITS ---
Test Reason : CP Blood Pressure : / mmHG Vent. Rate : 084 BPM Atrial Rate : 084 BPM P-R Int : 138 ms QRS Dur : 090 ms QT Int : 394 ms P-R-T Axes : 029 031 016 degrees QTc Int : 465 ms Normal sinus rhythm Normal ECG When compared with ECG of 18-OCT-2019 17:57, No significant change was found Confirmed by MITZI CHAND, HAILEY ([id number]), news videotape editor CHRIS LEON ([id number]) on 10/14/2021 11:31:23 AM Referred By: MR Confirmed By:HAILEY CARTAGENA MD
--- NOTE | 2021-10-09 21:26 | RAD_ITS ---
INDICATION: chest pain EXAMINATION/TECHNIQUE: X-RAY - XR Chest 2 Views COMPARISON: 10/05/2020 FINDINGS: LINES/DEVICES: None. LUNGS: No consolidation, edema or effusion. No pneumothorax. MEDIASTINUM AND CARDIOVASCULAR STRUCTURES: Cardiac silhouette not enlarged. Central airways and mediastinal contour are unremarkable. BONES AND SOFT TISSUES: Unremarkable. RAD/Chest PA and Lateral IMPRESSION: No radiographic evidence of acute cardiopulmonary disease. Electronically Signed: Jeffrey Duran MD at 22:25 EST Tel , Service support ,
[2021-10-09] MEDS: Mag Hydrox/Al Hydrox/Simeth 30 ML UDC PO (21:49)
[2021-10-09 21:51] LABS: Absolute Lymphocyte Count 2.54 X10^3/uL (0.83-4.51); Absolute Neutrophil Count 8.1 X10^3/uL (2.0-7.7); Basophil# 0.05 X10^3/uL; Basophil% 0.4 % (0-1); Eosinophil# 0.02 X10^3/uL; Eosinophils% 0.2 % (0-5); Hematocrit 38.6 % (37-47); Hemoglobin 12.3 g/dL (12.0-15.0); Lymphocyte # 2.54 X10^3/ul (0.83-4.51); Mean Corp Hgb Conc 31.9 g/dL (32-36); Mean Corpuscular Hgb 26.6 pg (27.0-32.0); Mean Corpuscular Volume 83.4 fL (81-99); Mean Platelet Vol. 9.5 fl (6.2-12.0); Monocyte# 0.78 X10^3/uL; Monocyte% 6.8 % (0-10); NRBC Flagged by Analyzer 0 % (0-5); Neutrophil % 70.3 % (47-70); Platelet Count 370 K/mm3 (150-450); RBC Distribution Width CV 14.2 % (11.6-14.6); RBC Distribution Width SD 42.9 fl (35.1-43.9); Red Blood Count 4.63 M/mm3 (4.2-5.4); White Blood Count 11.5 K/mm3 (4.4-11.0)
[2021-10-09 22:08] LABS: AST(SGOT) 9 U/L (15-37); Alanine Aminotransfer ALT/SGPT 17 U/L (13-56); Albumin, Serum 3.5 g/dL (3.2-5.0); Alkaline Phosphatase 73 U/L (45-117); Globulin 3.9 g/dL (2.2-4.2); Protein, Total 7.4 g/dL (6.4-8.2)
[2021-10-09 22:23] LABS: Anion Gap 10 (5-15); BUN 6 mg/dL (7-18); BUN/Creat Ratio 8.9 RATIO (10-20); Calcium,Total 9.1 mg/dL (8.5-10.1); Chloride 109 mmol/L (98-107); Creatinine, Serum 0.67 mg/dL (0.55-1.02); EST Glomerular Filtration Rate 114 mL/min (>60); Est Glom Filt Rate - Afr Amer 138 mL/min (>60); Estimated Creatinine Clearance 125.91 ml/min; Glucose 177 mg/dL (74-106); Lipase 194 U/L (73-393); Sodium Level 140 mmol/L (136-145); Troponin-I HS 8 pg/mL (3.0-54.0)
--- NOTE | 2021-10-09 22:45 | ED.VIS.CHEST ---
HPI History of Present Illness Chief Complaint: Chest Pain Narrative Narrative: Patient presenting for evaluation secondary to chest pain. Patient has a underlying history of gastroesophageal reflux, diet-controlled diabetes, asthma. Patient reports over the course the last 3 weeks she has been dealing with a relatively persistent chest pain. States that it is a sharp type pain in the center of her chest.'s been associated with cough and shortness of breath. Patient denies any fevers. She does report that her cough is intermittently productive of sputum. Patient was seen at the emergency department in this facility and had a work-up including a CT angiogram that was found to be negative. Patient reports that she was seen at a outside facility a couple of days ago, and was started on a course of azithromycin and prednisone. Patient reports she has been using her home inhaler, states that she is continuing to have a cough and continuing to have sharp chest pain. She does report that the pain is occasionally worse with coughing and occasionally worse with eating. Review of systems otherwise negative. [facility] Medical History ADHD Anemia Anxiety Depression Dermoid cyst of right ovary HPV (human papilloma virus) infection IBS (irritable bowel syndrome) Migraines Seizures Home Medications albuterol sulfate [Ventolin Hfa (SP)] 1 puff INHALATION Q4H PRN PRN 07/02/17 [History Last Taken Unknown] sertraline 100 mg PO DAILY 10/18/17 [History Last Taken Unknown] ferrous sulfate 325 mg PO DAILY 10/18/19 [History Last Taken Unknown] topiramate 50 mg PO BID 03/16/20 [History Last Taken Unknown] hydrocodone-acetaminophen 1 tab PO Q6H PRN 3 Days #10 tab 07/16/21 [Rx Last Taken Unknown] ibuprofen 800 mg PO Q6H 07/16/21 [History Last Taken Unknown] benzonatate 200 mg PO TID PRN #12 cap 10/09/21 [Rx Last Taken Unknown] Allergy/AdvReac Type Severity Reaction Status Date / Time amoxicillin Allergy Anaphylaxis Verified 10/05/21 20:09 bee venom protein (honey bee) Allergy Swelling Verified 10/05/21 20:09 etonogestrel [From Nexplanon] Allergy Swelling Verified 10/05/21 20:09 lidocaine Allergy Anaphylaxis Verified 10/05/21 20:09 mepivacaine [From Carbocaine] Allergy Swelling Verified 10/05/21 20:09 mushroom Allergy Other Verified 10/05/21 20:09 procaine [From Novocain] Allergy Unknown Verified 10/05/21 20:09 adhesive tape AdvReac Rash Verified 10/05/21 20:09 Surgical History Hx of laparoscopy Social History household members: friend(s) Smoking Status: Former smoker alcohol intake: current alcohol intake frequency: other substance use type: does not use ROS ROS ED Constitutional Constitutional ED: Denies chills or fever(s) ENT ENT ED: Denies rhinorrhea Cardiovascular Cardiovascular: Reports as per HPI Respiratory/Chest Respiratory/Chest: Reports cough and dyspnea Gastrointestinal Gastrointestinal: Denies abdominal pain, diarrhea, nausea or vomiting Genitourinary Genitourinary ED: Denies dysuria or hematuria Musculoskeletal Musculoskeletal: Denies back pain Integumentary Denies rash Neurologic Neurologic: Denies paresthesias or weakness Psychiatric Psychiatric: Denies depression Endocrine Endocrinology: Denies fatigue Allergic/Immunologic Allergic/Immunologic ED: Denies urticaria EXAM Physical Exam Const Vital Signs: 10/09/21 21:01 10/09/21 21:48 10/09/21 21:55 Temperature 97.8 F Temperature Source Temporal Pulse Rate 87 Respiratory Rate 16 Respiratory Pattern Irregular Blood Pressure 128/94 H Blood Pressure Mean 105 Pulse Ox 98 Oxygen Delivery Method Room Air Room Air Positive well nourished and well developed General Appearance ED: well developed and NAD HEENT Reports moist mucous membranes Negative for trauma or tenderness Eyes EOMs intact bilaterally Neck no lymphadenopathy, supple and no JVD Chest Wall inspection of chest normal Chest Narrative: Anterior chest tenderness no evidence of crepitus, no evidence of deformity, no evidence of rash Chest: tenderness Resp normal respiratory effort Auscultation: wheezes Cardio regular rate, regular rhythm, no murmurs and peripheral pulses 2+ throughout GI normal to inspection, nondistended, normoactive bowel sounds, non-tender and no masses Palpation: soft Back/Spine normal to inspection Extremity normal to inspection General Extremety ED: Negative for tenderness Neuro oriented x3 and no sensory deficits noted Sensorium / Orientation: alert Motor Exam: strength 5/5 throughout Psych mental status grossly normal Skin no rashes or lesions noted MDM MDM MDM Narrative Medical decision making narrative: Patient presenting secondary to persistent chest pain. I reviewed the patient's records, she had a work-up including lab work and CT angiogram of the chest at her prior visit that was noted to be negative. Patient still has some wheezing, work-up was obtained. PA and lateral chest x-ray by my personal review demonstrates no evidence of acute pathology, radiology concurs. CBC demonstrates mild leukocytosis at 11.5 that can be explained by the patient's prednisone use. Chemistry was unremarkable, added on a liver panel and lipase that were found to be negative. High-sensitivity troponin also noted to be negative. EKG shows no ischemic signs. Patient does have frequent cough, this likely is the cause of the patient's pain. Patient will be sent home with Tessalon as a cough suppressant, she was recommended other conservative management measures she was given reassurance, patient was discharged in stable condition. Lab Data Labs: Laboratory Results - last 24 hr 10/09/21 10/09/21 10/09/21 21:25 21:45 21:45 WBC 11.5 H RBC 4.63 Hgb 12.3 Hct 38.6 MCV 83.4 MCH 26.6 L MCHC 31.9 L RDW Std Deviation 42.9 RDW Coeff of Phi 14.2 Plt Count 370 MPV 9.5 Immature Gran % (Auto) 0.300 Neut % (Auto) 70.3 H Lymph % (Auto) 22.0 [place] % (Auto) 6.8 Eos % (Auto) 0.2 Baso % (Auto) 0.4 Absolute Neuts (auto) 8.1 H Absolute Lymphs (auto) 2.54 Nucleated RBC % 0 Sodium 140 Potassium 4.0 Chloride 109 H Carbon Dioxide 21.0 Anion Gap 10 BUN 6 L Creatinine 0.67 Estim Creat Clear Calc 125.91 Est GFR (MDRD) Af Amer 138 Est GFR (MDRD) Non-Af 114 BUN/Creatinine Ratio 8.9 L Glucose 177 H Calcium 9.1 Total Bilirubin 0.20 Direct Bilirubin 0.10 AST 9 L ALT 17 Alkaline Phosphatase 73 Troponin I High Sens 8 Total Protein 7.4 Albumin 3.5 Globulin 3.9 Lipase 194 Radiography Diagnostic Testing: Clinical Impression(s) from Imaging Studies Chest X-Ray 10/09/21 21:26 IMPRESSION: No radiographic evidence of acute cardiopulmonary disease. Electronically Signed: Jeffrey Duran MD at 22:25 EST Tel , Service support , EKG Initial EKG: Attestation: I personally reviewed and interpreted this EKG as follows: (EKG demonstrates normal sinus rhythm with rate of [address] segments normal T waves normal AR and QTc intervals no evidence of acute ischemia or arrhythmia) Discharge Plan Triage Chief Complaint: Chest Pain ED Provider: Marco Zarate Dx/Rx/DC Orders Clinical Impression: Chest pain, Bronchitis Instructions: ED Chest Pain, Noncardiac, ED Bronchitis with Wheezing (Adult) Prescriptions: New benzonatate 200 mg capsule 200 mg PO TID PRN (Reason: cough) Qty: 12 RF: 0 No Action albuterol sulfate [Ventolin HFA] 1 INHALER inhaler 1 puff inhalation Q4H PRN PRN (Reason: Wheezing) RF: 0 sertraline 100 MG tablet 100 mg PO DAILY RF: 0 ferrous sulfate 325 MG tablet 325 mg PO DAILY RF: 0 topiramate 50 MG tablet 50 mg PO BID RF: 0 ibuprofen 800 mg Tablet 800 mg PO Q6H RF: 0 hydrocodone-acetaminophen 5-325 mg tablet 1 tab PO Q6H PRN (Reason: pain) 3 Days Qty: 10 RF: 0 Primary Care Provider: Galdino Nam Referrals: Galdino Nam MD [Primary Care Provider] - 3-5 Days Disposition Disposition: Home, Self Care
[2021-10-09] MEDS: Benzonatate 100 MG Capsule 200 MG PO (23:01)
[2021-10-09 23:02] VITALS: PULSE 85; RESP 15; O2SAT 100
== END 2021-10-09 23:02 | disposition home or self-care (01) ==
PROVIDERS: Emergency Provider Emergency Medicine; PCP Family Medicine
DX: J45.909 Unspecified asthma, uncomplicated (principal); R07.9 Chest pain, unspecified; K21.9 Gastro-esophageal reflux disease without esophagitis; E11.9 Type 2 diabetes mellitus without complications; F41.9 Anxiety disorder, unspecified; F32.9 Major depressive disorder, single episode, unspecified; F90.9 Attention-deficit hyperactivity disorder, unspecified type; Z79.51 Long term (current) use of inhaled steroids; Z79.899 Other long term (current) drug therapy; Z87.891 Personal history of nicotine dependence
CPT/HCPCS: 71046; 80048; 80076; 83690; 84484; 85025; 93005; 99285; A4216

== ENCOUNTER 2021-11-16 16:24 | Emergency (ER) | payer MEDICAID, SELFPAY ==
[2021-11-16 16:25] VITALS: BP 124/85; PULSE 103; RESP 18; TEMP 36.4; O2SAT 98; BMI 33.3
--- NOTE | 2021-11-16 16:41 | EDS_ITS ---
HPI History of Present Illness Chief Complaint: Bite Detail of Chief Complaint: Dog bite to right forearm Informant: patient Narrative Narrative: Patient presents to the emergency department chief complaint of a dog bite to the right forearm that occurred yesterday. Patient states that there was somebody walking their dog in the neighborhood when the dog pulled the leash out of the electric blanket packer's hand and bit her on the right forearm. Patient does not know if the dog's been immunized. The dog did not appear rabid or ill. Patient is unsure of her last tetanus shot. She is right-hand dominant. She denies any other complaints. [facility] Medical History ADHD Anemia Anxiety Depression Dermoid cyst of right ovary HPV (human papilloma virus) infection IBS (irritable bowel syndrome) Migraines Seizures Home Medications albuterol sulfate [Ventolin Hfa (SP)] 1 puff INHALATION Q4H PRN PRN 07/02/17 [History Last Taken Unknown] sertraline 100 mg PO DAILY 10/18/17 [History Last Taken Unknown] ferrous sulfate 325 mg PO DAILY 10/18/19 [History Last Taken Unknown] topiramate 50 mg PO BID 03/16/20 [History Last Taken Unknown] hydrocodone-acetaminophen 1 tab PO Q6H PRN 3 Days #10 tab 07/16/21 [Rx Last Taken Unknown] ibuprofen 800 mg PO Q6H 07/16/21 [History Last Taken Unknown] benzonatate 200 mg PO TID PRN #12 cap 10/09/21 [Rx Last Taken Unknown] clindamycin HCl 300 mg PO 4X/DAY #80 capsule 11/16/21 [Rx Last Taken Unknown] sulfamethoxazole-trimethoprim 1 tab PO BID #20 tablet 11/16/21 [Rx Last Taken Unknown] Allergy/AdvReac Type Severity Reaction Status Date / Time amoxicillin Allergy Anaphylaxis Verified 11/16/21 16:26 bee venom protein (honey bee) Allergy Swelling Verified 11/16/21 16:26 etonogestrel [From Nexplanon] Allergy Swelling Verified 11/16/21 16:26 lidocaine Allergy Anaphylaxis Verified 11/16/21 16:26 mepivacaine [From Carbocaine] Allergy Swelling Verified 11/16/21 16:26 mushroom Allergy Other Verified 11/16/21 16:26 procaine [From Novocain] Allergy Unknown Verified 11/16/21 16:26 adhesive tape AdvReac Rash Verified 11/16/21 16:26 Surgical History Hx of laparoscopy Social History household members: friend(s) Smoking Status: Former smoker alcohol intake: current alcohol intake frequency: other substance use type: does not use ROS ROS ED Constitutional Constitutional ED: Reports systems reviewed and no addt'l complaints, except as documented; Denies body ache(s), change in weight or chills Eyes Eyes: Denies acute decrease in peripheral vision, change in vision, double vision or loss of vision ENT ENT ED: Reports none; Denies ear pain, lip swelling, loss taste/smell, neck pain, otalgia or sore throat Cardiovascular Cardiovascular: Reports none; Denies abdominal pain, chest pain with activity, leg edema, lightheadedness, palpitations, rapid heart rate or syncope Respiratory/Chest Respiratory/Chest: Reports none; Denies change in mental status, dry cough, dyspnea, hemoptysis, shortness of breath at rest or shortness of breath with exertion Gastrointestinal Gastrointestinal: Reports none; Denies abdominal pain, change in stool character, diarrhea, hematemesis, hematochezia, melena, rectal bleeding or vomiting Genitourinary Genitourinary ED: Reports none; Denies abdominal discomfort, anuria, dysuria, genital pain or polyuria Musculoskeletal Musculoskeletal: Reports none and other Details: Dog bite right forearm ; Denies arthralgias, back pain, difficulty walking, extremity pain, muscle weakness or myalgias Integumentary Reports none; Denies abscess or rash Neurologic Neurologic: Reports none; Denies abnormal gait, confusion, focal weakness, frequent falls, headache(s), loss of vision, numbness, paresthesias, radicular pain, vertigo or weakness Psychiatric Psychiatric: Reports systems reviewed and no addt'l complaints, except as documented and none; Denies behavioral changes, confusion, difficulty concentrating, hallucinations, suicidal ideation, tactile hallucinations or visual hallucinations Endocrine Endocrinology: Denies none, cold intolerance, excessive sweating, fatigue or heat intolerance Hematologic/Lymphatic Hematologic/Lymphatic: Reports none; Denies anemia, easy bleeding or easy bruising Allergic/Immunologic Allergic/Immunologic ED: Denies as per HPI, none, lip swelling, mouth swelling, throat swelling, tongue swelling or hives EXAM Physical Exam Const Vital Signs: 11/16/21 16:25 Temperature 97.5 F L Temperature Source Temporal Pulse Rate 103 H Respiratory Rate 18 Blood Pressure 124/85 H Blood Pressure Mean 98 Pulse Ox 98 Oxygen Delivery Method Room Air Positive well nourished and well developed General Appearance ED: well developed and NAD HEENT Reports TM's clear and moist mucous membranes normocephalic and atraumatic; Negative for trauma or tenderness Tympanic Membrane ED: Yes TM's clear Eyes PERRL and EOMs intact bilaterally General Eye ED: Negative for pale conjunctiva or scleral icterus Neck no lymphadenopathy, supple and no JVD General: Negative for tenderness Chest Wall inspection of chest normal and palpation of chest normal Chest: Negative for tenderness Resp normal respiratory effort and clear to auscultation bilaterally Effort and Inspection: Negative for respiratory distress or pain with movement Auscultation: Negative for rhonchi, wheezes or diminished lung sounds Cardio regular rate, regular rhythm, S1 normal heart sound, S2 normal heart sound and no murmurs Peripheral Pulses: pulses 2+ throughout GI normal to inspection, nondistended, normoactive bowel sounds, soft to palpation, non-tender, non-distended and no masses Back/Spine no CVA tenderness and no thoracic nor lumbar tenderness Extremity normal to inspection Extremity Narrative: Evaluation of the right forearm does reveal small puncture wounds to the mid volar forearm with ecchymosis and bruising surrounding. Patient also has superficial abrasion to the dorsal aspect of the forearm with some ecchymosis and bruising noted. No evidence for cellulitis at this time no purulent drainage noted from the wounds. She is neurovascular intact distally. General Extremety ED: Negative for edema General Extremity: Negative for edema Neuro oriented x3, CN's II-XII intact bilaterally, no sensory deficits noted and gait normal Sensorium / Orientation: awake, alert, oriented to person, oriented to place and oriented to time Motor Exam: strength 5/5 throughout and strength abnormal Psych mental status grossly normal Skin no rashes or lesions noted and no wounds MDM MDM MDM Narrative Medical decision making narrative: Patient will be given an Adacel tetanus sobia mara. Patient will be started on clindamycin and Bactrim. Patient is allergic to penicillin. Patient advised to return if increasing pain, redness, swelling, purulent drainage, or conditions worsen anyway. Discharge Plan Triage Chief Complaint: Bite ED Provider: Davy Marin Dx/Rx/DC Orders Clinical Impression: Dog bite of right forearm Instructions: ED Dog Bite Prescriptions: New clindamycin HCl 150 MG capsule 300 mg PO 4X/DAY Qty: 80 RF: 0 sulfamethoxazole-trimethoprim [sulfamethoxazole-trimethoprim] 1 TABLET tablet 1 tab PO BID Qty: 20 RF: 0 No Action albuterol sulfate [Ventolin HFA] 1 INHALER inhaler 1 puff inhalation Q4H PRN PRN (Reason: Wheezing) RF: 0 sertraline 100 MG tablet 100 mg PO DAILY RF: 0 ferrous sulfate 325 MG tablet 325 mg PO DAILY RF: 0 topiramate 50 MG tablet 50 mg PO BID RF: 0 ibuprofen 800 mg Tablet 800 mg PO Q6H RF: 0 hydrocodone-acetaminophen 5-325 mg tablet 1 tab PO Q6H PRN (Reason: pain) 3 Days Qty: 10 RF: 0 benzonatate 200 mg capsule 200 mg PO TID PRN (Reason: cough) Qty: 12 RF: 0 Primary Care Provider: Galdino Nam Referrals: Galdino Nam MD [Primary Care Provider] - 3-5 Days Disposition Disposition: Home, Self Care
[2021-11-16] MEDS: Diphth,Pertuss(Acell),Tet Vac 0.5 ML Vial IM (17:00)
[2021-11-16] MEDS: Smz/Tmp Ds Tablet 1 TABLET PO (17:01)
[2021-11-16] MEDS: Clindamycin HCl 150 MG Capsule 300 MG PO (17:01)
== END 2021-11-16 17:05 | disposition home or self-care (01) ==
PROVIDERS: Emergency Provider Emergency Medicine; PCP Family Medicine
DX: S51.851A Open bite of right forearm, initial encounter (principal); W54.0XXA Bitten by dog, initial encounter; Z87.891 Personal history of nicotine dependence
CPT/HCPCS: 90471; 90715; 99283

== ENCOUNTER 2021-12-14 10:55 | Emergency (ER) | payer MEDICAID, SELFPAY ==
[2021-12-14 10:56] VITALS: BP 124/90; PULSE 105; RESP 16; TEMP 36.5; O2SAT 95; BMI 31.3
--- NOTE | 2021-12-14 11:29 | EDS_ITS ---
HPI History of Present Illness Chief Complaint: General Illness Narrative Narrative: 26-year-old female with symptoms of fever, chills, cough, loss of taste and smell since the . This would make her day 6 of symptoms. She states she was tested with a rapid COVID test at urgent care and this was negative. She was given prednisone and nebulizers for her asthma and she has been using these and her asthma has improved. She is not wheezing anymore. She is eating and drinking normally. She is making normal urine and stool. 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 Apparently she cannot stay home and that she has a positive COVID test as well without a doctor's note. [facility] Medical History ADHD Anemia Anxiety Depression Dermoid cyst of right ovary HPV (human papilloma virus) infection IBS (irritable bowel syndrome) Migraines Seizures Home Medications albuterol sulfate [Ventolin Hfa (SP)] 1 puff INHALATION Q4H PRN PRN 07/02/17 [History Last Taken Unknown] sertraline 100 mg PO DAILY 10/18/17 [History Last Taken Unknown] ferrous sulfate 325 mg PO DAILY 10/18/19 [History Last Taken Unknown] topiramate 50 mg PO BID 03/16/20 [History Last Taken Unknown] hydrocodone-acetaminophen 1 tab PO Q6H PRN 3 Days #10 tab 07/16/21 [Rx Last Taken Unknown] ibuprofen 800 mg PO Q6H 07/16/21 [History Last Taken Unknown] benzonatate 200 mg PO TID PRN #12 cap 10/09/21 [Rx Last Taken Unknown] clindamycin HCl 300 mg PO 4X/DAY #80 capsule 11/16/21 [Rx Last Taken Unknown] sulfamethoxazole-trimethoprim 1 tab PO BID #20 tablet 11/16/21 [Rx Last Taken Unknown] Allergy/AdvReac Type Severity Reaction Status Date / Time amoxicillin Allergy Anaphylaxis Verified 12/14/21 10:56 bee venom protein (honey bee) Allergy Swelling Verified 12/14/21 10:56 etonogestrel [From Nexplanon] Allergy Swelling Verified 12/14/21 10:56 lidocaine Allergy Anaphylaxis Verified 12/14/21 10:56 mepivacaine [From Carbocaine] Allergy Swelling Verified 12/14/21 10:56 mushroom Allergy Other Verified 12/14/21 10:56 procaine [From Novocain] Allergy Unknown Verified 12/14/21 10:56 adhesive tape AdvReac Rash Verified 12/14/21 10:56 Surgical History Hx of laparoscopy Social History household members: friend(s) Smoking Status: Former smoker alcohol intake: current alcohol intake frequency: other substance use type: does not use ROS ROS ED Constitutional Constitutional ED: Reports chills and fever(s) Eyes Eyes: Denies blurry vision or diplopia ENT ENT ED: Denies rhinorrhea Cardiovascular Cardiovascular: Denies chest pain Respiratory/Chest Respiratory/Chest: Reports cough and dyspnea Gastrointestinal Gastrointestinal: Denies abdominal pain, diarrhea, nausea or vomiting Genitourinary Genitourinary ED: Denies dysuria Musculoskeletal Musculoskeletal: Reports myalgias; Denies arthralgias or neck pain Integumentary Denies rash Neurologic Neurologic: Denies headache(s) or weakness EXAM Physical Exam Const Vital Signs: 12/14/21 10:56 Temperature 97.7 F L Temperature Source Temporal Pulse Rate 105 H Respiratory Rate 16 Blood Pressure 124/90 H Blood Pressure Mean 101 Pulse Ox 95 Oxygen Delivery Method Room Air Positive well nourished General Appearance ED: NAD; Negative for pallor HEENT Reports moist mucous membranes Negative for trauma Eyes PERRL and EOMs intact bilaterally Chest Wall inspection of chest normal Resp normal respiratory effort and clear to auscultation bilaterally Cardio regular rate and regular rhythm Extremity normal to inspection General Extremety ED: Negative for edema or tenderness General Extremity: Negative for edema Neuro oriented x3, CN's II-XII intact bilaterally and no sensory deficits noted Sensorium / Orientation: alert Psych mental status grossly normal Skin no rashes or lesions noted General Skin Exam: Negative for jaundice or pallor MDM MDM MDM Narrative Medical decision making narrative: Patient presenting on day 6 with mild symptoms of COVID-19. Her wheezing has improved. Her vital signs are stable and she has a respiration rate of 16 and an O2 saturation of 95% on room air. Her lungs are clear to auscultation. She requested COVID-19 test because she is not allowed to stay home without a doctor's note or positive COVID-19 test and she is not allowed to return without a negative COVID-19 test. Since she is already tested negative with the rapid COVID test I do not believe a rapid COVID test would be appropriate. I will obtain a PCR and this will be a send out bec ause the patient does not need to be admitted to the hospital. She is otherwise stable. I will give her a work note so that she can stay home and quarantine. The patient is amenable to this. Patient was also counseled that likely she will be out of quarantine before her COVID test returns. Patient acknowledged understanding. She is to return with any new or worsening symptoms. Impression: 1. Viral syndrome Discharge Plan Triage Chief Complaint: General Illness ED Provider: Ernie Birch Dx/Rx/DC Orders Instructions: Coronavirus Disease 2019 (COVID-19): Caring for Yourself or Others Prescriptions: No Action albuterol sulfate [Ventolin HFA] 1 INHALER inhaler 1 puff inhalation Q4H PRN PRN (Reason: Wheezing) RF: 0 sertraline 100 MG tablet 100 mg PO DAILY RF: 0 ferrous sulfate 325 MG tablet 325 mg PO DAILY RF: 0 topiramate 50 MG tablet 50 mg PO BID RF: 0 ibuprofen 800 mg Tablet 800 mg PO Q6H RF: 0 hydrocodone-acetaminophen 5-325 mg tablet 1 tab PO Q6H PRN (Reason: pain) 3 Days Qty: 10 RF: 0 benzonatate 200 mg capsule 200 mg PO TID PRN (Reason: cough) Qty: 12 RF: 0 clindamycin HCl 150 MG capsule 300 mg PO 4X/DAY Qty: 80 RF: 0 sulfamethoxazole-trimethoprim [sulfamethoxazole-trimethoprim] 1 TABLET tablet 1 tab PO BID Qty: 20 RF: 0 Stand Alone Forms: ED Work / School Excuse Primary Care Provider: Galdino Nam Referrals: Galdino Nam MD [Primary Care Provider] - Disposition Disposition: Home, Self Care
== END 2021-12-14 12:22 | disposition home or self-care (01) ==
PROVIDERS: Emergency Provider Student in an Organized Health Care Education/Training Program; PCP Family Medicine; Visit Provider Student in an Organized Health Care Education/Training Program
DX: B34.9 Viral infection, unspecified (principal); G40.909 Epilepsy, unspecified, not intractable, without status epilepticus; Z87.891 Personal history of nicotine dependence; R68.83 Chills (without fever); F90.9 Attention-deficit hyperactivity disorder, unspecified type; F41.9 Anxiety disorder, unspecified; F32.A Depression, unspecified; K58.9 Irritable bowel syndrome, unspecified; G43.909 Migraine, unspecified, not intractable, without status migrainosus; D64.9 Anemia, unspecified; Z79.899 Other long term (current) drug therapy; J45.909 Unspecified asthma, uncomplicated; R43.8 Other disturbances of smell and taste
CPT/HCPCS: 87635; 99282; U0003; U0005

== ENCOUNTER 2022-01-26 13:05 | Emergency (ER) | payer MEDICAID, SELFPAY ==
[2022-01-26 13:05] VITALS: BP 132/78; PULSE 85; RESP 16; TEMP 35.7; O2SAT 99; BMI 31.3
--- NOTE | 2022-01-26 14:50 | EDS_ITS ---
HPI History of Present Illness Chief Complaint: Head Injury Informant: patient Onset/Context/Timing Onset: Hours (4) Mechanism/Context: Blunt Injury (car door of cab as she was getting out) Narrative Narrative: Patient states she was getting out of a cab today and the door accidentally hit her on the right frontal parietal scalp, causing pain there and a headache, and she feels dizzy and a little nauseated. She has a history of epilepsy, she has had no seizures. She has been compliant with her medications. She denies any other injury. She denies any scalp wound or bleeding. This h appened about 4 hours prior to evaluation. She has had no vomiting or loss of consciousness, nor other focal neurologic symptom. [facility] Medical History ADHD Anemia Anxiety Depression Dermoid cyst of right ovary HPV (human papilloma virus) infection IBS (irritable bowel syndrome) Migraines Seizures Home Medications albuterol sulfate [Ventolin Hfa (SP)] 1 puff INHALATION Q4H PRN PRN 07/02/17 [History Last Taken Unknown] sertraline 100 mg PO DAILY 10/18/17 [History Last Taken Unknown] ferrous sulfate 325 mg PO DAILY 10/18/19 [History Last Taken Unknown] topiramate 50 mg PO BID 03/16/20 [History Last Taken Unknown] hydrocodone-acetaminophen 1 tab PO Q6H PRN 3 Days #10 tab 07/16/21 [Rx Last Taken Unknown] ibuprofen 800 mg PO Q6H 07/16/21 [History Last Taken Unknown] benzonatate 200 mg PO TID PRN #12 cap 10/09/21 [Rx Last Taken Unknown] clindamycin HCl 300 mg PO 4X/DAY #80 capsule 11/16/21 [Rx Last Taken Unknown] sulfamethoxazole-trimethoprim 1 tab PO BID #20 tablet 11/16/21 [Rx Last Taken Unknown] meclizine 25 mg PO Q8H PRN PRN #20 tab 01/26/22 [Rx Last Taken Unknown] Allergy/AdvReac Type Severity Reaction Status Date / Time amoxicillin Allergy Anaphylaxis Verified 01/26/22 13:05 bee venom protein (honey bee) Allergy Swelling Verified 01/26/22 13:05 etonogestrel [From Nexplanon] Allergy Swelling Verified 01/26/22 13:05 lidocaine Allergy Anaphylaxis Verified 01/26/22 13:05 mepivacaine [From Carbocaine] Allergy Swelling Verified 01/26/22 13:05 mushroom Allergy Other Verified 01/26/22 13:05 procaine [From Novocain] Allergy Unknown Verified 01/26/22 13:05 adhesive tape AdvReac Rash Verified 01/26/22 13:05 Surgical History Hx of laparoscopy Social History household members: friend(s) Smoking Status: Former smoker alcohol intake: current alcohol intake frequency: other substance use type: does not use ROS ROS ED Constitutional Constitutional ED: Denies chills or fever(s) Eyes Eyes: Denies change in vision or diplopia ENT ENT ED: Denies rhinorrhea or sore throat Cardiovascular Cardiovascular: Denies chest pain or palpitations Respiratory/Chest Respiratory/Chest: Denies cough or dyspnea Gastrointestinal Gastrointestinal: Reports nausea; Denies abdominal pain, diarrhea or vomiting Genitourinary Genitourinary ED: Denies dysuria or hematuria Musculoskeletal Musculoskeletal: Denies back pain or neck pain Integumentary Denies abscess or rash Neurologic Neurologic: Reports headache(s); Denies paresthesias or weakness Psychiatric Psychiatric: Denies anxiety or suicidal thoughts EXAM Physical Exam Const Vital Signs: 01/26/22 13:05 Temperature 96.2 F L Temperature Source Temporal Pulse Rate 85 Respiratory Rate 16 Blood Pressure 132/78 H Blood Pressure Mean 96 Pulse Ox 99 Oxygen Delivery Method Room Air Positive well nourished and well developed General Appearance ED: well developed and NAD HEENT Reports EAC's normal, TM's normal bilaterally and moist mucous membranes HEENT Narrative: Mildly tender right frontoparietal scalp without any objective sign of trauma, hematoma, step-off, or crepitance. No periorbital edema/ecchymosis or facial tenderness or keene sign. normocephalic and atraumatic Eyes PERRL and EOMs intact bilaterally Neck full ROM and supple Resp normal respiratory effort Back/Spine General Back: other FROM Extremity normal to inspection General Extremety ED: Negative for edema, pulses abnormal or tenderness General Extremity: Negative for edema or pulses abnormal Neuro oriented x3, CN's II-XII intact bilaterally and no sensory deficits noted Sensorium / Orientation: awake and alert Motor Exam: strength 5/5 throughout Skin no rashes or lesions noted and no wounds MDM MDM MDM Narrative Medical decision making narrative: Patient reassured she does not have a significant traumatic brain injury, nor does she need a CT scan for this at this time. This is according to the [place] head CT trauma rule. Patient was given appropriate instructions regarding follow-up and reasons to return, she was gi estefania a work note for tomorrow, and a prescription for meclizine after getting a dose of meclizine as well as some Zofran here. She is comfortable with that plan we discussed the plan. Discharge Plan Triage Chief Complaint: Head Injury ED Provider: Justin Goldman Dx/Rx/DC Orders Clinical Impression: Concussion without loss of consciousness, initial encounter Instructions: ED Head Injury (Adult) Prescriptions: New meclizine [meclizine] 25 MG tablet 25 mg PO Q8H PRN PRN (Reason: Dizziness) Qty: 20 RF: 0 No Action albuterol sulfate [Ventolin HFA] 1 INHALER inhaler 1 puff inhalation Q4H PRN PRN (Reason: Wheezing) RF: 0 sertraline 100 MG tablet 100 mg PO DAILY RF: 0 ferrous sulfate 325 MG tablet 325 mg PO DAILY RF: 0 topiramate 50 MG tablet 50 mg PO BID RF: 0 ibuprofen 800 mg Tablet 800 mg PO Q6H RF: 0 hydrocodone-acetaminophen 5-325 mg tablet 1 tab PO Q6H PRN (Reason: pain) 3 Days Qty: 10 RF: 0 benzonatate 200 mg capsule 200 mg PO TID PRN (Reason: cough) Qty: 12 RF: 0 clindamycin HCl 150 MG capsule 300 mg PO 4X/DAY Qty: 80 RF: 0 sulfamethoxazole-trimethoprim [sulfamethoxazole-trimethoprim] 1 TABLET tablet 1 tab PO BID Qty: 20 RF: 0 Stand Alone Forms: ED Work / School Excuse Primary Care Provider: Galdino Nam Referrals: Galdino Nam MD [Primary Care Provider] - 1 Week if not improving (or return to ER for CT scan if worsening, vomiting, or pass out) Disposition Disposition: Home, Self Care Discharge Date/Time: 01/26/22 16:15
== END 2022-01-26 16:15 | disposition home or self-care (01) ==
PROVIDERS: Emergency Provider Emergency Medicine; PCP Family Medicine; Visit Provider Emergency Medicine
DX: S06.0X0A Concussion without loss of consciousness, initial encounter (principal); Z87.891 Personal history of nicotine dependence; X58.XXXA Exposure to other specified factors, initial encounter

== ENCOUNTER 2022-04-21 13:18 | Emergency (ER) | payer MEDICAID, SELFPAY ==
[2022-04-21 13:19] VITALS: BP 113/81; PULSE 81; RESP 14; TEMP 36.7; O2SAT 95; BMI 29.9
--- NOTE | 2022-04-21 13:49 | EDS_ITS ---
HPI History of Present Illness Chief Complaint: Upper Extremity Injury Informant: patient Narrative Narrative: 26-year-old female presenting to the emergency room with pain in the right shoulder. Patient states that on Wednesday she was attempting to lift a oak dresser. She was able to complete the task but developed pain in the right shoulder. States it starts in the posterior aspect of the shoulder travels down to the upper arm. She states that it is feeling that it is worsening. She denies any paresthesias. [facility] Medical History ADHD Anemia Anxiety Depression Dermoid cyst of right ovary HPV (human papilloma virus) infection IBS (irritable bowel syndrome) Migraines Seizures Home Medications albuterol sulfate [Ventolin Hfa (SP)] 1 puff INHALATION Q4H PRN PRN 07/02/17 [History Last Taken Unknown] sertraline 100 mg PO DAILY 10/18/17 [History Last Taken Unknown] ferrous sulfate 325 mg PO DAILY 10/18/19 [History Last Taken Unknown] topiramate 50 mg PO BID 03/16/20 [History Last Taken Unknown] hydrocodone-acetaminophen 1 tab PO Q6H PRN 3 Days #10 tab 07/16/21 [Rx Last Taken Unknown] ibuprofen 800 mg PO Q6H 07/16/21 [History Last Taken Unknown] benzonatate 200 mg PO TID PRN #12 cap 10/09/21 [Rx Last Taken Unknown] clindamycin HCl 300 mg PO 4X/DAY #80 capsule 11/16/21 [Rx Last Taken Unknown] sulfamethoxazole-trimethoprim 1 tab PO BID #20 tablet 11/16/21 [Rx Last Taken Unknown] meclizine 25 mg PO Q8H PRN PRN #20 tab 01/26/22 [Rx Last Taken Unknown] hydrocodone-acetaminophen 1 tab PO Q6H PRN PRN 3 Days #10 tablet 04/21/22 [Rx Last Taken Unknown] ibuprofen 600 mg PO Q6H PRN PRN #20 tablet 04/21/22 [Rx Last Taken Unknown] Allergy/AdvReac Type Severity Reaction Status Date / Time amoxicillin Allergy Anaphylaxis Verified 04/21/22 13:19 bee venom protein (honey bee) Allergy Swelling Verified 04/21/22 13:19 etonogestrel [From Nexplanon] Allergy Swelling Verified 04/21/22 13:19 lidocaine Allergy Anaphylaxis Verified 04/21/22 13:19 mepivacaine [From Carbocaine] Allergy Swelling Verified 04/21/22 13:19 mushroom Allergy Other Verified 04/21/22 13:19 procaine [From Novocain] Allergy Unknown Verified 04/21/22 13:19 adhesive tape AdvReac Rash Verified 04/21/22 13:19 Surgical History Hx of laparoscopy Social History household members: friend(s) Smoking Status: Former smoker alcohol intake: current alcohol intake frequency: other substance use type: does not use ROS ROS ED Constitutional Constitutional ED: Denies chills or weight loss Eyes Eyes: Denies change in vision or diplopia ENT ENT ED: Denies ear pain, rhinorrhea or sore throat Cardiovascular Cardiovascular: Denies chest pain, orthopnea, palpitations or racing heartbeat Respiratory/Chest Respiratory/Chest: Denies cough, dyspnea or orthopnea Gastrointestinal Gastrointestinal: Denies abdominal pain, diarrhea, nausea or vomiting Genitourinary Genitourinary ED: Denies dysuria, hematuria or urinary frequency Musculoskeletal Musculoskeletal: Reports other Details: See history of present illness ; Denies arthralgias, back pain, myalgias or neck pain Integumentary Denies abscess or rash Neurologic Neurologic: Denies headache(s) or weakness Psychiatric Psychiatric: Denies anxiety, depression, suicidal ideation or suicidal thoughts Endocrine Endocrinology: Denies polydipsia, polyphagia or polyuria Allergic/Immunologic Allergic/Immunologic ED: Denies mouth swelling, tongue swelling or urticaria EXAM Physical Exam Const Vital Signs: 04/21/22 13:19 Temperature 98.1 F Temperature Source Temporal Pulse Rate 81 Respiratory Rate 14 Blood Pressure 113/81 H Blood Pressure Mean 91 Pulse Ox 95 Oxygen Delivery Method Room Air Positive well nourished and well developed General Appearance ED: well developed HEENT Reports normocephalic, head/scalp atraumatic and moist mucous membranes normocephalic and atraumatic Eyes PERRL and EOMs intact bilaterally Neck no lymphadenopathy, supple and no JVD Resp normal respiratory effort and clear to auscultation bilaterally Cardio regular rate, regular rhythm and no murmurs GI normal to inspection, nondistended, normoactive bowel sounds and non-tender Palpation: soft Back/Spine no CVA tenderness and normal ROM Extremity Extremity Narrative: Patient is able to fully range the shoulder albeit painful. She has tenderness to palpation along the supraspinatus muscle. Positive empty beer can test. Negative apprehension test. Neurovascularly intact. General Extremety ED: Negative for edema General Extremity: Negative for edema Neuro oriented x3 and CN's II-XII intact bilaterally Sensorium / Orientation: alert Motor Exam: strength 5/5 throughout Psych mental status grossly normal Mood & Affect: Negative for depressed or tearful Skin no rashes or lesions noted and no wounds MDM MDM MDM Narrative Medical decision making narrative: This sounds muscular in nature. I do not believe x-rays are going to be of benefit. I wrote for the patient to have some pain medicine. Would recommend icing and resting the shoulder. But discussed what to do if this is not improving. We talked about rotator cuff tears. Patient is comfortable with her plan following up in 10 to 14 days. Discharge Plan Triage Chief Complaint: Upper Extremity Injury ED Provider: Fred Juarez Dx/Rx/DC Orders Clinical Impression: Muscle strain of right shoulder Instructions: ED Shoulder Sprain Prescriptions: New hydrocodone-acetaminophen [hydrocodone-acetaminophen] 1 TABLET tablet 1 tab PO Q6H PRN PRN (Reason: Pain) 3 Days Qty: 10 RF: 0 ibuprofen 600 MG tablet 600 mg PO Q6H PRN PRN (Reason: pain) Qty: 20 RF: 0 No Action albuterol sulfate [Ventolin HFA] 1 INHALER inhaler 1 puff inhalation Q4H PRN PRN (Reason: Wheezing) RF: 0 sertraline 100 MG tablet 100 mg PO DAILY RF: 0 ferrous sulfate 325 MG tablet 325 mg PO DAILY RF: 0 topiramate 50 MG tablet 50 mg PO BID RF: 0 ibuprofen 800 mg Tablet 800 mg PO Q6H RF: 0 hydrocodone-acetaminophen 5-325 mg tablet 1 tab PO Q6H PRN (Reason: pain) 3 Days Qty: 10 RF: 0 benzonatate 200 mg capsule 200 mg PO TID PRN (Reason: cough) Qty: 12 RF: 0 clindamycin HCl 150 MG capsule 300 mg PO 4X/DAY Qty: 80 RF: 0 sulfamethoxazole-trimethoprim [sulfamethoxazole-trimethoprim] 1 TABLET tablet 1 tab PO BID Qty: 20 RF: 0 meclizine [meclizine] 25 MG tablet 25 mg PO Q8H PRN PRN (Reason: Dizziness) Qty: 20 RF: 0 Primary Care Provider: Galdino Nam Referrals: Galdino Nam MD [Primary Care Provider] - 10-14 Days if not better Disposition Disposition: Home, Self Care
== END 2022-04-21 13:56 | disposition home or self-care (01) ==
PROVIDERS: Emergency Provider Emergency Medicine; PCP Family Medicine; Visit Provider Emergency Medicine
DX: S46.911A Strain of unspecified muscle, fascia and tendon at shoulder and upper arm level, right arm, initial encounter (principal); G40.909 Epilepsy, unspecified, not intractable, without status epilepticus; X50.0XXA Overexertion from strenuous movement or load, initial encounter; F90.9 Attention-deficit hyperactivity disorder, unspecified type; F41.9 Anxiety disorder, unspecified; F32.A Depression, unspecified; K58.9 Irritable bowel syndrome, unspecified; G43.909 Migraine, unspecified, not intractable, without status migrainosus; Z79.899 Other long term (current) drug therapy; D64.9 Anemia, unspecified; Z87.891 Personal history of nicotine dependence
CPT/HCPCS: 99282

== ENCOUNTER 2022-06-19 13:34 | Emergency (ER) | payer MEDICAID, SELFPAY ==
[2022-06-19 13:37] VITALS: BP 128/82; PULSE 89; RESP 16; TEMP 36.6; O2SAT 98; BMI 32.3
--- NOTE | 2022-06-19 14:30 | EX.ED.DYSGE1 ---
HPI <SEA Guillen - Last Filed: 06/19/22 14:36> History of Present Illness Chief Complaint: Abscess Narrative Narrative: 26-year-old female with multiple allergies, with no significant medical history presents to the emergency department with abscess to the right inner thigh. Patient states that she has noticed that for the last 2 days, she is concerned because she had this in the past. Patient denies any fevers or chills. Patient states that it is getting bigger however is not draining. It is getting red around and getting more swollen and painful. PFSH <ESA Guillen - Last Filed: 06/19/22 14:36> [facility] Medical History ADHD Anemia Anxiety Depression Dermoid cyst of right ovary HPV (human papilloma virus) infection IBS (irritable bowel syndrome) Migraines Seizures Home Medications albuterol sulfate 90 mcg/actuation aerosol inhaler (Ventolin HFA) 1 puff inhalation Q4H PRN PRN Wheezing 07/02/17 [History Last Taken Unknown] sertraline 100 mg tablet 100 mg PO DAILY 10/18/17 [History Last Taken Unknown] ferrous sulfate 325 mg (65 mg iron) tablet 325 mg PO DAILY 10/18/19 [History Last Taken Unknown] topiramate 50 mg tablet 50 mg PO BID 03/16/20 [History Last Taken Unknown] clindamycin HCl 150 mg capsule 450 mg PO TID 7 days #63 caps 06/19/22 [Rx Last Taken Unknown] sulfacetamide sodium 10 % eye drops 2 drp EACH EYE Q4H PRN 06/19/22 [History Last Taken Unknown] Allergy/AdvReac Type Severity Reaction Status Date / Time amoxicillin Allergy Anaphylaxis Verified 06/19/22 13:37 bee venom protein (honey bee) Allergy Swelling Verified 06/19/22 13:37 etonogestrel [From Nexplanon] Allergy Swelling Verified 06/19/22 13:37 lidocaine Allergy Anaphylaxis Verified 06/19/22 13:37 mepivacaine [From Carbocaine] Allergy Swelling Verified 06/19/22 13:37 mushroom Allergy Other Verified 06/19/22 13:37 procaine [From Novocain] Allergy Swelling Verified 06/19/22 13:37 adhesive tape AdvReac Rash Verified 06/19/22 13:37 Surgical History Hx of laparoscopy Social History household members: friend(s) Smoking Status: Former smoker alcohol intake: current alcohol intake frequency: other substance use type: does not use ROS <ESA Guillen - Last Filed: 06/19/22 14:36> ROS ED ROS Narrative Constitutional: Negative for fever, chills, weight loss, weakness Eyes: Negative for vision loss, vision change, double vision ENT: Negative for any sore throat, ear pain, congestion Cardiovascular: Negative for any chest pain, tightness, palpitations Respiratory: Negative for any cough, sputum production, hemoptysis, dyspnea, dyspnea on exertion, orthopnea Gastrointestinal: Negative for any abdominal pain, nausea, vomiting, diarrhea, constipation, blood in stool, blood in vomit : Negative for any urinary frequency, dysuria, retention, blood in urine Muscle skeletal: Negative for any muscle joint pain, stiffness, myalgias, arthralgias, neck pain, back pain Neurological: Negative for any headache, syncope, numbness or tingling, dizziness Skin: Negative for any rashes, itching, abrasions, lacerations. Positive for abscess to the right inner thigh Psychiatric: Negative for any depression, anxiety, stress, suicidal ideation, homicidal ideation Hematologic: Negative for any easy bruising, excessive bruising, easy bleeding Allergies: Negative for any eczema, hives, rash EXAM <ESA Guillen - Last Filed: 06/19/22 14:36> Physical Exam Narrative Exam Narrative: Vital signs reviewed. Extremities: No peripheral edema, no signs of gross trauma or deformity. Active full range of motion of all extremities. Neuro: Cranial nerves II through XII intact, no focal neurological deficits. Skin: Clean dry and intact with no rash, purpura, petechiae, vesicles or pustules. Patient has a small 2 x 2 centimeter abscess to the right inner thigh, there is no signs of drainage however there is fluctuance. There is some surrounding cellulitis. Backs/flank: No CVA tenderness, no midline spinal tenderness, no deformity. Psych: Normal mood and affect. No SI, HI or acute psychosis. Const Vital Signs: 06/19/22 13:37 Temperature 97.8 F Temperature Source Temporal Pulse Rate 89 Respiratory Rate 16 Blood Pressure 128/82 H Blood Pressure Mean 97 Pulse Ox 98 Oxygen Delivery Method Room Air <Dr. Cassidy Reina, - Last Filed: 06/22/22 15:41> Physical Exam Const Vital Signs: 06/19/22 13:37 Temperature 97.8 F Temperature Source Temporal Pulse Rate 89 Respiratory Rate 16 Blood Pressure 128/82 H Blood Pressure Mean 97 Pulse Ox 98 Oxygen Delivery Method Room Air MDM <ESA Guillen - Last Filed: 06/19/22 14:36> MDM Treatment and Re-Evaluation Narrative: Patient appears well, patient appears nontoxic, vital signs are stable. Patient presents to the emergency department with complaints of an abscess to the right inner thigh. This abscess needs to be I&D. However the patient is adamant that she does not want any numbing medication due to her history of allergies to lidocaine, and different numbing agents. I was able to cleanse the area thoroughly, I used an 11 blade and made a small incision 0.5 cm. Yellow, brown fluid was expelled. Patient tolerated well for not being anesthetized. This area was dressed. Patient due to her allergy to amoxicillin will be placed on doxycycline daily for 7 days. Patient instructed to keep the area clean, dry, to return for any worsening symptoms. Patient states to have relief of symptoms after drainage. Patient is stable for discharge instructed return for worsening symptoms <Dr. Cassidy Reina, - Last Filed: 06/22/22 15:41> MDM Treatment and Re-Evaluation Narrative: Patient appears well, patient appears nontoxic, vital signs are stable. Patient presents to the emergency department with complaints of an abscess to the right inner thigh. This abscess needs to be I&D. However the patient is adamant that she does not want any numbing medication due to her history of allergies to lidocaine, and different numbing agents. I was able to cleanse the area thoroughly, I used an 11 blade and made a small incision 0.5 cm. Yellow, brown fluid was expelled. Patient tolerated well for not being anesthetized. This area was dressed. Patient due to her allergy to amoxicillin will be placed on <del>doxycycline</del> daily for 7 days. Patient instructed to keep the area clean, dry, to return for any worsening symptoms. Patient states to have relief of symptoms after drainage. Patient is stable for discharge instructed return for worsening symptoms I have personally performed a face to face assessment of the patient and have reviewed the FAINA Note. I performed a substantive portion of the visit including all aspects of the following. My garza findings include: History is patient is a 26-year-old female with multiple allergies including lidocaine, mepivacaine and procaine presenting with pain and swelling of her right upper inner thigh. Patient has an early abscess with some surrounding erythematous changes concerning for cellulitis. No crepitus. Vital signs are normal. Given multiple allergies I&D performed by PA without anesthetic. Patient tolerated this well. See his procedure note. Patient is placed on clindamycin as she has an allergy to penicillins and is going on vacation this weekend and will be in the sun so does not want doxycycline either. Patient is counseled on warm compresses. She verbalizes agreement understanding with this plan. Other additions or changes: [None] Discharge Plan Triage Chief Complaint: Abscess ED Midlevel Provider: Anmol Nieto ED Provider: Cassiyd Reina Dx/Rx/DC Orders Clinical Impression: Abscess Instructions: Abscess Drainage Prescriptions: New clindamycin HCl 150 mg capsule 450 mg PO TID 7 Days Qty: 63 0RF No Action albuterol sulfate [Ventolin HFA] 1 INHALER inhaler 1 puff inhalation Q4H PRN PRN (Reason: Wheezing) sertraline 100 MG tablet 100 mg PO DAILY ferrous sulfate 325 MG tablet 325 mg PO DAILY Label Comments: Take 1 tablet by mouth twice daily with meals. topiramate 50 MG tablet 50 mg PO BID sulfacetamide sodium 10 % drops 2 drp EACH EYE Q4H PRN Label Comments: APPLY 2 (TWO) DROPS IN BOTH EYES EVERY 4 HOURS FOR 7 DAYS Primary Care Provider: Galdino Nam Referrals: Galdino Nam MD [Primary Care Provider] - Activity Restrictions/Additional Instructions: Please keep the wound clean and dry. Hold your iron until finished with antibiotics. Take the entire dose of antibiotics, throw the bottle away empty. Print Language: Latvian Disposition Disposition: Home, Self Care Discharge Date/Time: 06/19/22 14:48
== END 2022-06-19 14:48 | disposition home or self-care (01) ==
PROVIDERS: Emergency Provider Emergency Medicine; PCP Family Medicine; Visit Provider Emergency Medicine
DX: L02.415 Cutaneous abscess of right lower limb (principal); R56.9 Unspecified convulsions; F90.9 Attention-deficit hyperactivity disorder, unspecified type; F41.9 Anxiety disorder, unspecified; F32.A Depression, unspecified; Z79.899 Other long term (current) drug therapy; Z87.891 Personal history of nicotine dependence
CPT/HCPCS: 10060; 99282

== ENCOUNTER 2022-07-30 23:56 | Emergency (ER) | payer MEDICAID, SELFPAY ==
[2022-07-30 23:57] VITALS: BP 115/85; PULSE 85; RESP 16; TEMP 36.2; O2SAT 98; BMI 31.8
--- NOTE | 2022-07-31 00:11 | EX.ED.DYSGE1 ---
HPI History of Present Illness Chief Complaint: General Illness Informant: patient Onset/Context/Timing Onset: Weeks (1) Context: Gradual Onset Timing: Continuous Quality: Dull, sharp Location: Right abdomen and back Worsened by: Nothing Relieved by: Nothing Narrative Narrative: Patient presents with nausea, vomiting, diarrhea, and abdominal pain that has been getting progressively worse over the past week. Patient states she has been unable to keep anything down today. Patient denies any hematemesis or coffee-ground emesis. Patient denies any melena or hematochezia. Patient states her pain is sharp and dull. Patient states it is on the right side of her abdomen and into her back. Patient states nothing makes it better and nothing makes it worse. Patient admits to some urinary frequency but denies any dysuria or hematuria. PFSH [facility] Medical History ADHD Anemia Anxiety Depression Dermoid cyst of right ovary HPV (human papilloma virus) infection IBS (irritable bowel syndrome) Migraines Seizures Home Medications albuterol sulfate 90 mcg/actuation aerosol inhaler (Ventolin HFA) 1 puff inhalation Q4H PRN PRN Wheezing 07/02/17 [History Last Taken Unknown] sertraline 100 mg tablet 100 mg PO DAILY 10/18/17 [History Last Taken Unknown] ferrous sulfate 325 mg (65 mg iron) tablet 325 mg PO DAILY 10/18/19 [History Last Taken Unknown] topiramate 50 mg tablet 50 mg PO BID 03/16/20 [History Last Taken Unknown] clindamycin HCl 150 mg capsule 450 mg PO TID 7 days #63 caps 06/19/22 [Rx Last Taken Unknown] sulfacetamide sodium 10 % eye drops 2 drp EACH EYE Q4H PRN 06/19/22 [History Last Taken Unknown] ondansetron 4 mg disintegrating tablet 4 mg PO Q8H PRN PRN Nausea #10 tabs 07/31/22 [Rx Last Taken Unknown] Allergy/AdvReac Type Severity Reaction Status Date / Time amoxicillin Allergy Anaphylaxis Verified 07/30/22 23:57 bee venom protein (honey bee) Allergy Swelling Verified 07/30/22 23:57 etonogestrel [From Nexplanon] Allergy Swelling Verified 07/30/22 23:57 lidocaine Allergy Anaphylaxis Verified 07/30/22 23:57 mepivacaine [From Carbocaine] Allergy Swelling Verified 07/30/22 23:57 mushroom Allergy Other Verified 07/30/22 23:57 procaine [From Novocain] Allergy Swelling Verified 07/30/22 23:57 adhesive tape AdvReac Rash Verified 07/30/22 23:57 Surgical History Hx of laparoscopy Social History household members: friend(s) Smoking Status: Current every day smoker tobacco type: cigarettes alcohol intake: current alcohol intake frequency: other substance use type: does not use ROS ROS ED Constitutional Constitutional ED: Denies chills or fever(s) Eyes Eyes: Denies blurry vision or change in vision ENT ENT ED: Reports rhinorrhea; Denies sore throat Cardiovascular Cardiovascular: Reports chest pain; Denies palpitations Respiratory/Chest Respiratory/Chest: Denies cough or dyspnea Gastrointestinal Gastrointestinal: Reports abdominal pain, diarrhea, nausea and vomiting Genitourinary Genitourinary ED: Reports urinary frequency; Denies dysuria or hematuria Musculoskeletal Musculoskeletal: Denies back pain or neck pain Integumentary Denies abscess or rash Neurologic Neurologic: Reports headache(s); Denies weakness Allergic/Immunologic Allergic/Immunologic ED: Denies mouth swelling or urticaria EXAM Physical Exam Const Vital Signs: 07/30/22 23:57 Temperature 97.2 F L Temperature Source Temporal Pulse Rate 85 Respiratory Rate 16 Blood Pressure 115/85 H Blood Pressure Mean 95 Pulse Ox 98 Oxygen Delivery Method Room Air Positive well nourished and well developed General Appearance ED: well developed and NAD HEENT Reports moist mucous membranes Neck supple and no JVD Resp normal respiratory effort and clear to auscultation bilaterally Cardio regular rate, regular rhythm and no murmurs GI normal to inspection, nondistended, normoactive bowel sounds Palpation: soft and tender epigastric, LLQ, RLQ, LUQ, RUQ, periumbilical and suprapubic; Negative for guarding or rebound tenderness present Extremity normal to inspection General Extremety ED: Negative for edema or tenderness General Extremity: Negative for edema Neuro oriented x3, CN's II-XII intact bilaterally and no sensory deficits noted Sensorium / Orientation: alert Motor Exam: strength 5/5 throughout Psych mental status grossly normal Skin no rashes or lesions noted MDM MDM MDM Narrative Medical decision making narrative: She was on IV fluids and Zofran here. CBC was within normal limits. Comprehensive metabolic profile was within normal limits. Lipase was normal. Serum hCG was negative. Urinalysis does not show any evidence of urinary tract infection or hematuria. COVID-19 rapid antigen was obtained and was negative. Influenza A and influenza B swabs were obtained and were negative. Patient was advised of her findings. Patient was instructed to drink plenty of fluids. Patient was instructed to follow-up with her primary care physician in 5 to 7 days. Patient understood and was agreeable with the plan. All questions were answered. Lab Data Attestation: I reviewed the patient's lab results. Labs: Laboratory Results - last 24 hr 07/31/22 07/31/22 07/31/22 00:25 00:25 00:25 WBC 8.6 RBC 4.95 Hgb 13.8 Hct 42.3 MCV 85.5 MCH 27.9 MCHC 32.6 RDW Std Deviation 41.7 RDW Coeff of Phi 13.3 Plt Count 327 MPV 9.2 Immature Gran % (Auto) 0.100 Neut % (Auto) 54.7 Lymph % (Auto) 36.1 Chaves % (Auto) 6.5 Eos % (Auto) 2.0 Baso % (Auto) 0.6 Absolute Neuts (auto) 4.7 Absolute Lymphs (auto) 3.10 Nucleated RBC % 0 Sodium 142 Potassium 3.5 Chloride 114 H Carbon Dioxide 20.0 L Anion Gap 8 BUN 6 L Creatinine 0.72 Estim Creat Clear Calc 107.48 Est GFR (MDRD) Af Amer 126 Est GFR (MDRD) Non-Af 104 BUN/Creatinine Ratio 8.3 L Glucose 98 Calcium 9.0 Total Bilirubin 0.30 AST 8 L ALT 17 Alkaline Phosphatase 67 Total Protein 7.6 Albumin 3.6 Globulin 4.0 Albumin/Globulin Ratio 0.9 Lipase 155 Serum , Qual NEGATIVE Urine Color Urine Clarity Urine pH Ur Specific Gregory Urine Protein Urine Glucose (UA) Urine Ketones Urine Occult Blood Urine Nitrite Urine Bilirubin Urine Urobilinogen Ur Leukocyte Esterase Urine RBC Urine WBC Ur Squamous Epith Cells Urine Bacteria Urine Mucus 07/31/22 00:32 WBC RBC Hgb Hct MCV MCH MCHC RDW Std Deviation RDW Coeff of Phi Plt Count MPV Immature Gran % (Auto) Neut % (Auto) Lymph % (Auto) Chaves % (Auto) Eos % (Auto) Baso % (Auto) Absolute Neuts (auto) Absolute Lymphs (auto) Nucleated RBC % Sodium Potassium Chloride Carbon Dioxide Anion Gap BUN Creatinine Estim Creat Clear Calc Est GFR (MDRD) Af Amer Est GFR (MDRD) Non-Af BUN/Creatinine Ratio Glucose Calcium Total Bilirubin AST ALT Alkaline Phosphatase Total Protein Albumin Globulin Albumin/Globulin Ratio Lipase Serum , Qual Urine Color Yellow Urine Clarity Sl. Cloudy Urine pH 5.0 Ur Specific Gregory 1.025 Urine Protein 15 H Urine Glucose (UA) Normal Urine Ketones Negative Urine Occult Blood 10 H Urine Nitrite Negative Urine Bilirubin Negative Urine Urobilinogen 1 H Ur Leukocyte Esterase 100 H Urine RBC 0-5 SEEN Urine WBC 0-5 SEEN Ur Squamous Epith Cells 0-5 SEEN Urine Bacteria 3+ Urine Mucus 0 SEEN Discharge Plan Triage Chief Complaint: General Illness ED Provider: Kurt Lares Dx/Rx/DC Orders Clinical Impression: Nausea vomiting and diarrhea, Viral illness Instructions: ED Viral Syndrome (Adult), ED Vomiting (Adult) Prescriptions: New ondansetron [ondansetron] 4 mg tablet,disintegrating 4 mg PO Q8H PRN PRN (Reason: Nausea) Qty: 10 0RF No Action albuterol sulfate [Ventolin HFA] 1 INHALER inhaler 1 puff inhalation Q4H PRN PRN (Reason: Wheezing) sertraline 100 MG tablet 100 mg PO DAILY ferrous sulfate 325 MG tablet 325 mg PO DAILY Label Comments: Take 1 tablet by mouth twice daily with meals. topiramate 50 MG tablet 50 mg PO BID sulfacetamide sodium 10 % drops 2 drp EACH EYE Q4H PRN Label Comments: APPLY 2 (TWO) DROPS IN BOTH EYES EVERY 4 HOURS FOR 7 DAYS clindamycin HCl 150 mg capsule 450 mg PO TID 7 Days Qty: 63 0RF Primary Care Provider: Galdino Nam Referrals: Galdino Nam MD [Primary Care Provider] - 5-7 Days Disposition Disposition: Home, Self Care
[2022-07-31] MEDS: Ondansetron 4 MG/2 ML Vial IV (00:25)
[2022-07-31] MEDS: 0.9% Normal Saline 1,000 ML 1000 ML IV (00:25)
[2022-07-31 00:35] LABS: Absolute Neutrophil Count 4.7 X10^3/uL (2.0-7.7); Basophil# 0.05 X10^3/uL; Basophil% 0.6 % (0-1); Eosinophil# 0.17 X10^3/uL; Hematocrit 42.3 % (37-47); Hemoglobin 13.8 g/dL (12.0-15.0); Lymphocyte % 36.1 % (19-41); Mean Corp Hgb Conc 32.6 g/dL (32-36); Mean Corpuscular Hgb 27.9 pg (27.0-32.0); Mean Corpuscular Volume 85.5 fL (81-99); Mean Platelet Vol. 9.2 fl (6.2-12.0); Monocyte# 0.56 X10^3/uL; Monocyte% 6.5 % (0-10); NRBC Flagged by Analyzer 0 % (0-5); Neutrophil # 4.69 X10^3/uL (2.7-7.7); Neutrophil % 54.7 % (47-70); Platelet Count 327 K/mm3 (150-450); RBC Distribution Width CV 13.3 % (11.6-14.6); RBC Distribution Width SD 41.7 fl (35.1-43.9); Red Blood Count 4.95 M/mm3 (4.2-5.4); White Blood Count 8.6 K/mm3 (4.4-11.0)
[2022-07-31 00:39] LABS: Mucous, Urine 0 SEEN /hpf (<or=2+)
[2022-07-31 00:41] LABS: Color, Urine Yellow (Yellow); Glucose, Dipstick Normal (Normal); Ketone-Dipstick Negative (Negative); Leukocyte Esterase-Dipstick 100 /ul (Negative); Nitrite-Dipstick Negative (Negative); Occult Blood-Urine 10 /ul (Negative); Protein-Dipstick 15 mg/dl (Negative); Specific Gravity, Urine 1.025 (1.002-1.030); Urine Bilirubin Dipstick Negative (Negative); Urine Clarity Sl. Cloudy (Clear); Urine Urobilinogen 1 mg/dl (Normal)
[2022-07-31 00:47] LABS: Bacteria 3+ /hpf (None Seen); Red Blood Cells-Urine 0-5 SEEN /hpf (0-5); Squamous Epithelial Cells - UA 0-5 SEEN /hpf (5-10); White Blood Cells 0-5 SEEN /hpf (0-5)
[2022-07-31 00:48] LABS: Internal QC Validated? YES +Cl - CLEAR BKGD; Pregnancy, Serum, hCG Quali. NEGATIVE Negative
[2022-07-31 00:55] LABS: ALB/GLOB Ratio 0.9 RATIO (0.9-2.4); AST(SGOT) 8 U/L (15-37); Alanine Aminotransfer ALT/SGPT 17 U/L (13-56); Albumin, Serum 3.6 g/dL (3.2-5.0); Alkaline Phosphatase 67 U/L (45-117); Anion Gap 8 (5-15); BUN 6 mg/dL (7-18); BUN/Creat Ratio 8.3 RATIO (10-20); Chloride 114 mmol/L (98-107); Creatinine, Serum 0.72 mg/dL (0.55-1.02); EST Glomerular Filtration Rate 104 mL/min (>60); Est Glom Filt Rate - Afr Amer 126 mL/min (>60); Estimated Creatinine Clearance 107.48 ml/min; Glucose 98 mg/dL (74-106); Lipase 155 U/L (73-393); Potassium 3.5 mmol/L (3.5-5.1); Protein, Total 7.6 g/dL (6.4-8.2); Sodium Level 142 mmol/L (136-145)
[2022-07-31 01:28] VITALS: PULSE 74; RESP 16; O2SAT 98
== END 2022-07-31 01:40 | disposition home or self-care (01) ==
PROVIDERS: Emergency Provider Emergency Medicine; PCP Family Medicine; Visit Provider Emergency Medicine
DX: R11.2 Nausea with vomiting, unspecified (principal); R56.9 Unspecified convulsions; R19.7 Diarrhea, unspecified; B34.9 Viral infection, unspecified; R35.0 Frequency of micturition; F17.210 Nicotine dependence, cigarettes, uncomplicated; F90.9 Attention-deficit hyperactivity disorder, unspecified type; F41.9 Anxiety disorder, unspecified; F32.A Depression, unspecified; Z79.899 Other long term (current) drug therapy; Z20.822 Contact with and (suspected) exposure to COVID-19
CPT/HCPCS: 80053; 81001; 83690; 84703; 85025; 87428; 96361; 96374; 99283; J2405

== ENCOUNTER 2022-09-24 12:01 | Emergency (ER) | payer MEDICAID, SELFPAY ==
[2022-09-24 12:02] VITALS: BP 107/72; PULSE 92; RESP 16; TEMP 35.9; O2SAT 98; BMI 29.7
--- NOTE | 2022-09-24 12:31 | EX.ED.UPPERE ---
HPI History of Present Illness Chief Complaint: Upper Extremity Injury Narrative Narrative: 27-year-old female presenting with right trapezius pain. She states she had this over the summer and underwent physical therapy with her primary care physician and it got better. 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 She has an appointment with her doctor tomorrow but states she felt she needed to be seen. She denies any direct trauma. She is able to move her right shoulder without difficulty. No paresthesias. PFSH PFS Medical History ADHD Anemia Anxiety Depression Dermoid cyst of right ovary HPV (human papilloma virus) infection IBS (irritable bowel syndrome) Migraines Seizures Home Medications albuterol sulfate 90 mcg/actuation aerosol inhaler (Ventolin HFA) 1 puff inhalation Q4H PRN PRN Wheezing 07/02/17 [History Last Taken Unknown] sertraline 100 mg tablet 100 mg PO DAILY 10/18/17 [History Last Taken Unknown] ferrous sulfate 325 mg (65 mg iron) tablet 325 mg PO DAILY 10/18/19 [History Last Taken Unknown] topiramate 50 mg tablet 50 mg PO BID 03/16/20 [History Last Taken Unknown] clindamycin HCl 150 mg capsule 450 mg PO TID 7 days #63 caps 06/19/22 [Rx Last Taken Unknown] sulfacetamide sodium 10 % eye drops 2 drp EACH EYE Q4H PRN 06/19/22 [History Last Taken Unknown] ondansetron 4 mg disintegrating tablet 4 mg PO Q8H PRN PRN Nausea #10 tabs 07/31/22 [Rx Last Taken Unknown] naproxen 500 mg tablet (Naprosyn) 500 mg PO BID PRN pain #20 tabs 09/24/22 [Rx Last Taken Unknown] tizanidine 4 mg capsule (Zanaflex) 4 mg PO Q8H PRN muscle spasticity #14 caps 09/24/22 [Rx Last Taken Unknown] Allergy/AdvReac Type Severity Reaction Status Date / Time amoxicillin Allergy Anaphylaxis Verified 09/24/22 12:04 bee venom protein (honey bee) Allergy Swelling Verified 09/24/22 12:04 etonogestrel [From Nexplanon] Allergy Swelling Verified 09/24/22 12:04 lidocaine Allergy Anaphylaxis Verified 09/24/22 12:04 mepivacaine [From Carbocaine] Allergy Swelling Verified 09/24/22 12:04 mushroom Allergy Other Verified 09/24/22 12:04 procaine [From Novocain] Allergy Swelling Verified 09/24/22 12:04 adhesive tape AdvReac Rash Verified 09/24/22 12:04 Surgical History Hx of laparoscopy Social History household members: friend(s) Smoking Status: Current every day smoker tobacco type: cigarettes alcohol intake: current alcohol intake frequency: other substance use type: does not use ROS ROS ED Constitutional Constitutional ED: Denies chills or fever(s) Eyes Eyes: Denies change in vision ENT ENT ED: Denies rhinorrhea or sore throat Cardiovascular Cardiovascular: Denies palpitations or racing heartbeat Respiratory/Chest Respiratory/Chest: Denies cough or dyspnea Gastrointestinal Gastrointestinal: Denies abdominal pain or constipation Genitourinary Genitourinary ED: Denies dysuria or hematuria Musculoskeletal Musculoskeletal: Reports neck pain and other Details: Right trapezius pain Integumentary Denies abscess or Abrasions Neurologic Neurologic: Denies headache(s) or paresthesias Psychiatric Psychiatric: Denies anxiety or depression EXAM Physical Exam Const Vital Signs: 09/24/22 12:02 Temperature 96.6 F L Temperature Source Temporal Pulse Rate 92 Respiratory Rate 16 Blood Pressure 107/72 Blood Pressure Mean 83 Pulse Ox 98 Oxygen Delivery Method Room Air Positive well nourished HEENT normocephalic and atraumatic Eyes PERRL and EOMs intact bilaterally Chest Wall inspection of chest normal Resp normal respiratory effort Cardio regular rate and regular rhythm GI non-tender Back/Spine Back/Spine Narrative: Tenderness to palpation right cervical paraspinal musculature. No midline spinal deformity, step-off, tenderness. Rotation, flexion, extension are maintained. There is tenderness over the right trapezius region. Right shoulder girdle stable. No tenderness elicited in this region. Patient has full range of motion of the right shoulder. Neuro oriented x3 and CN's II-XII intact bilaterally Sensorium / Orientation: alert Motor Exam: strength 5/5 throughout Psych mental status grossly normal Skin Lesions: no lesions Rashes: no rashes MDM MDM MDM Narrative Medical decision making narrative: Patient with nontraumatic right trapezius pain and right-sided neck pain. 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 She is appointment with her primary care physician tomorrow. She is trying ibuprofen and Tylenol at home. I do not believe she needs any acute imaging here in the ED. I did offer her a Lidoderm patch but she states he is allergic. Patient also will be given prescription for muscle relaxers and Naprosyn. Patient stable for discharge. Impression: 1. Cervical strain 2. Trapezius strain Lab Data Attestation: I reviewed the patient's lab results. Discharge Plan Triage Chief Complaint: Upper Extremity Injury ED Provider: Ernie Birch Dx/Rx/DC Orders Instructions: ED Neck Sprain or Strain Prescriptions: New tizanidine [Zanaflex] 4 mg capsule 4 mg PO Q8H PRN (Reason: muscle spasticity) Qty: 14 0RF naproxen [Naprosyn] 500 mg tablet 500 mg PO BID PRN (Reason: pain) Qty: 20 0RF No Action albuterol sulfate [Ventolin HFA] 1 INHALER inhaler 1 puff inhalation Q4H PRN PRN (Reason: Wheezing) sertraline 100 MG tablet 100 mg PO DAILY ferrous sulfate 325 MG tablet 325 mg PO DAILY Label Comments: Take 1 tablet by mouth twice daily with meals. topiramate 50 MG tablet 50 mg PO BID sulfacetamide sodium 10 % drops 2 drp EACH EYE Q4H PRN Label Comments: APPLY 2 (TWO) DROPS IN BOTH EYES EVERY 4 HOURS FOR 7 DAYS clindamycin HCl 150 mg capsule 450 mg PO TID 7 Days Qty: 63 0RF ondansetron [ondansetron] 4 mg tablet,disintegrating 4 mg PO Q8H PRN PRN (Reason: Nausea) Qty: 10 0RF Primary Care Provider: Galdino Nam Referrals: Galdino Nam MD [Primary Care Provider] - Disposition Disposition: Home, Self Care
== END 2022-09-24 12:48 | disposition home or self-care (01) ==
LOC: ED 12:44
PROVIDERS: Emergency Provider Student in an Organized Health Care Education/Training Program; PCP Family Medicine; Visit Provider Student in an Organized Health Care Education/Training Program
DX: S16.1XXA Strain of muscle, fascia and tendon at neck level, initial encounter (principal); S46.812A Strain of other muscles, fascia and tendons at shoulder and upper arm level, left arm, initial encounter; F17.210 Nicotine dependence, cigarettes, uncomplicated; X50.0XXA Overexertion from strenuous movement or load, initial encounter; Y99.0 Civilian activity done for income or pay
CPT/HCPCS: 99282

== ENCOUNTER 2022-10-17 18:57 | Emergency (ER) | payer MEDICAID, SELFPAY ==
[2022-10-17 18:58] VITALS: BP 129/85; PULSE 106; RESP 18; TEMP 36.4; O2SAT 98; BMI 31.3
[2022-10-17 19:05] VITALS: O2SAT 99
--- NOTE | 2022-10-17 19:06 | EKG12_ITS ---
Test Reason : CP Blood Pressure : / mmHG Vent. Rate : 090 BPM Atrial Rate : 090 BPM P-R Int : 142 ms QRS Dur : 090 ms QT Int : 380 ms P-R-T Axes : 048 038 027 degrees QTc Int : 464 ms Normal sinus rhythm Normal ECG Confirmed by MITZI CHAND, HAILEY ([id number]), videotape editor CHRIS LEON ([id number]) on 10/20/2022 8:07:19 AM Referred By: BEHZAD Confirmed By:HAILEY CARTAGENA MD
--- NOTE | 2022-10-17 19:20 | EX.ED.VIS.UR ---
HPI HPI - URI History of Present Illness Chief Complaint: Shortness of Breath Narrative Narrative: 27-year-old female presenting with cough for the last 3 days. She states that over the last couple hours she is noticed when she is coughing she has pain in the sternal region. See states he is mildly dyspneic. No fevers, chills, body aches. 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 Patient does not have any nausea, vomiting. No diarrhea. No abdominal pain. No urinary or vaginal complaints. ROS ROS ED Constitutional Constitutional ED: Denies chills or fever(s) Eyes Eyes: Denies change in vision ENT ENT ED: Denies rhinorrhea or sore throat Cardiovascular Cardiovascular: Denies chest pain or palpitations Respiratory/Chest Respiratory/Chest: Reports cough and dyspnea Gastrointestinal Gastrointestinal: Denies abdominal pain, nausea or vomiting Genitourinary Genitourinary ED: Denies dysuria or hematuria Musculoskeletal Musculoskeletal: Denies arthralgias Integumentary Denies abscess or Abrasions Neurologic Neurologic: Denies headache(s) Psychiatric Psychiatric: Denies anxiety or depression [facility] Medical History ADHD Anemia Anxiety Depression Dermoid cyst of right ovary HPV (human papilloma virus) infection IBS (irritable bowel syndrome) Migraines Seizures Home Medications albuterol sulfate 90 mcg/actuation aerosol inhaler (Ventolin HFA) 1 puff inhalation Q4H PRN PRN Wheezing 07/02/17 [History Last Taken Unknown] sertraline 100 mg tablet 100 mg PO DAILY 10/18/17 [History Last Taken Unknown] ferrous sulfate 325 mg (65 mg iron) tablet 325 mg PO DAILY 10/18/19 [History Last Taken Unknown] topiramate 50 mg tablet 50 mg PO BID 03/16/20 [History Last Taken Unknown] sulfacetamide sodium 10 % eye drops 2 drp EACH EYE Q4H PRN 06/19/22 [History Last Taken Unknown] ondansetron 4 mg disintegrating tablet 4 mg PO Q8H PRN PRN Nausea #10 tabs 07/31/22 [Rx Last Taken Unknown] naproxen 500 mg tablet (Naprosyn) 500 mg PO BID PRN pain #20 tabs 09/24/22 [Rx Last Taken Unknown] tizanidine 4 mg capsule (Zanaflex) 4 mg PO Q8H PRN muscle spasticity #14 caps 09/24/22 [Rx Last Taken Unknown] folic acid 1 mg tablet 1 mg PO DAILY 10/17/22 [History Last Taken Unknown] Allergy/AdvReac Type Severity Reaction Status Date / Time amoxicillin Allergy Anaphylaxis Verified 10/17/22 19:05 bee venom protein (honey bee) Allergy Swelling Verified 10/17/22 19:05 etonogestrel [From Nexplanon] Allergy Swelling Verified 10/17/22 19:05 lidocaine Allergy Anaphylaxis Verified 10/17/22 19:05 mepivacaine [From Carbocaine] Allergy Swelling Verified 10/17/22 19:05 mushroom Allergy Other Verified 10/17/22 19:05 procaine [From Novocain] Allergy Swelling Verified 10/17/22 19:05 adhesive tape AdvReac Rash Verified 10/17/22 19:05 Surgical History Hx of laparoscopy Social History household members: friend(s) Smoking Status: Current every day smoker tobacco type: cigarettes alcohol intake: current alcohol intake frequency: other substance use type: does not use EXAM Physical Exam Const Vital Signs: 10/17/22 18:58 10/17/22 19:05 Temperature 97.6 F L Temperature Source Temporal Pulse Rate 106 H Respiratory Rate 18 Respiratory Effort Normal Non-Labored Respiratory Depth Normal Respiratory Pattern Normal Blood Pressure 129/85 H Blood Pressure Mean 99 Pulse Ox 98 Oxygen Delivery Method Room Air Room Air MDM MDM MDM Narrative Medical decision making narrative: Patient with cough for 3 days. She states its painful when she coughs. She tried Tylenol and ibuprofen. She is also tried Naprosyn. She states he is out of [place] which was prescribed for her earlier last month. I will obtain a chest x-ray given the patient's cough. I do not believe she needs blood work. She does request a COVID swab and this is negative. Clinically I suspect costochondritis with the cough. She did have a protocoled EKG performed prior to my entering the room and I did interpret this as normal sinus rhythm with a ventricular rate 90 bpm without sign of ischemic change or dysrhythmia. Chest x-ray on my interpretation shows no acute cardiopulmonary process and radiologist agree. Patient is to alternate Tylenol and ibuprofen for pain. Impression: 1. Cough 2. Dyspnea 3. Costochondritis Lab Data Attestation: I reviewed the patient's lab results. Radiography Diagnostic Testing: Clinical Impression(s) from Imaging Studies Chest X-Ray 10/17/22 19:28 IMPRESSION: Normal x-ray examination of the chest. Electronically Signed: Cali Harrison MD at 19:52 EST , Discharge Plan Triage Chief Complaint: Shortness of Breath ED Provider: Ernie Birch Dx/Rx/DC Orders Instructions: Costochondritis Prescriptions: No Action albuterol sulfate [Ventolin HFA] 1 INHALER inhaler 1 puff inhalation Q4H PRN PRN (Reason: Wheezing) sertraline 100 MG tablet 100 mg PO DAILY ferrous sulfate 325 MG tablet 325 mg PO DAILY Label Comments: Take 1 tablet by mouth twice daily with meals. topiramate 50 MG tablet 50 mg PO BID sulfacetamide sodium 10 % drops 2 drp EACH EYE Q4H PRN Label Comments: APPLY 2 (TWO) DROPS IN BOTH EYES EVERY 4 HOURS FOR 7 DAYS ondansetron [ondansetron] 4 mg tablet,disintegrating 4 mg PO Q8H PRN PRN (Reason: Nausea) Qty: 10 0RF tizanidine [Zanaflex] 4 mg capsule 4 mg PO Q8H PRN (Reason: muscle spasticity) Qty: 14 0RF naproxen [Naprosyn] 500 mg tablet 500 mg PO BID PRN (Reason: pain) Qty: 20 0RF folic acid 1 mg tablet 1 mg PO DAILY Label Comments: Take 1 tablet by mouth once daily. Primary Care Provider: Galdino Nam Referrals: Galdino Nam MD [Primary Care Provider] - Disposition Disposition: Home, Self Care
--- NOTE | 2022-10-17 19:28 | RAD_ITS ---
STUDY: X-RAY CHEST REASON FOR EXAM: Female, 27 years old. chest wall pain TECHNIQUE: PA and lateral COMPARISON: 10/09/2021 FINDINGS: The lungs are clear and expanded. There is no demonstrated pleural abnormality. Normal size heart. Normal mediastinum and jacinta. Normal visualized pulmonary arteries. Normal visualized aortic arch and descending thoracic aorta. Normal visualized thoracic spine. Normal visualized ribs, clavicles, and shoulders. There is no demonstrated abnormality of the visualized soft tissue structures of the upper abdomen. RAD/Chest PA and Lateral IMPRESSION: Normal x-ray examination of the chest. Electronically Signed: Cali Harrison MD at 19:52 EST ,
[2022-10-17] MEDS: Ketorolac 15 MG/ML Vial IV (19:42)
[2022-10-17 20:57] VITALS: PULSE 98; RESP 18; O2SAT 98
== END 2022-10-17 20:57 | disposition home or self-care (01) ==
PROVIDERS: Emergency Provider Student in an Organized Health Care Education/Training Program; PCP Family Medicine; Visit Provider Student in an Organized Health Care Education/Training Program
DX: M94.0 Chondrocostal junction syndrome [Tietze] (principal); F17.210 Nicotine dependence, cigarettes, uncomplicated; R05.9 Cough, unspecified; R06.02 Shortness of breath
CPT/HCPCS: 71046; 87428; 93005; 96374; 99283; A4216

== ENCOUNTER 2023-01-08 22:33 | Emergency (ER) | payer MEDICAID, SELFPAY ==
--- NOTE | 2023-01-08 00:12 | RAD_ITS ---
INDICATION: dyspnea EXAMINATION/TECHNIQUE: X-RAY - portable upright AP chest x-ray COMPARISON: 10/17/2022 FINDINGS: LINES/DEVICES: None. LUNGS: No consolidation, edema or effusion. No pneumothorax. MEDIASTINUM AND CARDIOVASCULAR STRUCTURES: Cardiac silhouette not enlarged. Central airways and mediastinal contour are unremarkable. BONES AND SOFT TISSUES: Unremarkable. RAD/Chest 1 View (Portable) IMPRESSION: No radiographic evidence of acute cardiopulmonary disease. Electronically Signed: Reji Pires MD at 0:40 EST ,
[2023-01-08 22:34] VITALS: BP 137/80; PULSE 104; RESP 24; TEMP 36.1; O2SAT 100; BMI 41.5
[2023-01-08 23:26] VITALS: PULSE 101; RESP 20
[2023-01-09 00:41] VITALS: BP 132/74; PULSE 74; RESP 15; TEMP 36.8; O2SAT 99
[2023-01-09] MEDS: Ipratropium/Albuterol Sulfate 3 ML AMPUL.NEB INHALATION (00:44)
[2023-01-09] MEDS: dexAMETHasone 10 MG/ML Vial PO.IVFORM (00:44)
[2023-01-09] MEDS: Albuterol 2.5 MG/3 ML VIAL.NEB. INHALATION (00:44)
[2023-01-09] MEDS: guaiFENesin/Codeine 5 ML UDC 10 ML PO (00:47)
--- NOTE | 2023-01-09 01:03 | EDS_ITS ---
HPI History of Present Illness Chief Complaint: Shortness of Breath Narrative Narrative: Patient is a 27-year-old female with past medical history of asthma. She states that she had a nebulizer but that it broke secondary to an issue at her apartment. She reports that 1 week ago she underwent surgery for gallbladder removal and had to be intubated at that time. She states that since returning home from the surgery she has had some soreness in her throat as well as abdomen/chest and she finds it difficult to breathe intermittently. She states that she had her nebulizer she believes she controls at home but as she does not she presents to the hospital for evaluation. [facility] Medical History ADHD Anemia Anxiety Depression Dermoid cyst of right ovary HPV (human papilloma virus) infection IBS (irritable bowel syndrome) Migraines Seizures Home Medications albuterol sulfate 90 mcg/actuation aerosol inhaler (Ventolin HFA) 1 puff inhalation Q4H PRN PRN Wheezing 07/02/17 [History Last Taken Unknown] sertraline 100 mg tablet 100 mg PO DAILY 10/18/17 [History Last Taken Unknown] ferrous sulfate 325 mg (65 mg iron) tablet 325 mg PO DAILY 10/18/19 [History Last Taken Unknown] topiramate 50 mg tablet 50 mg PO BID 03/16/20 [History Last Taken Unknown] sulfacetamide sodium 10 % eye drops 2 drp EACH EYE Q4H PRN 06/19/22 [History Last Taken Unknown] ondansetron 4 mg disintegrating tablet 4 mg PO Q8H PRN PRN Nausea #10 tabs 07/31/22 [Rx Last Taken Unknown] naproxen 500 mg tablet (Naprosyn) 500 mg PO BID PRN pain #20 tabs 09/24/22 [Rx Last Taken Unknown] tizanidine 4 mg capsule (Zanaflex) 4 mg PO Q8H PRN muscle spasticity #14 caps 09/24/22 [Rx Last Taken Unknown] folic acid 1 mg tablet 1 mg PO DAILY 10/17/22 [History Last Taken Unknown] albuterol sulfate 90 mcg/actuation aerosol inhaler (Ventolin HFA) 1 - 2 puff inhalation Q4H PRN PRN Wheezing #1 device 01/09/23 [Rx Last Taken Unknown] ipratropium 0.5 mg-albuterol 3 mg (2.5 mg base)/3 mL nebulization soln 3 ml inhalation Q6H PRN shortness of breath or wheezing #180 mL 01/09/23 [Rx Last Taken Unknown] nebulizer and compressor #1 ea 01/09/23 [Rx Last Taken Unknown] promethazine 6.25 mg-codeine 10 mg/5 mL syrup 5 ml PO 4X/DAY PRN PRN cough 7 days #140 mL 01/09/23 [Rx Last Taken Unknown] Allergy/AdvReac Type Severity Reaction Status Date / Time amoxicillin Allergy Anaphylaxis Verified 10/17/22 19:05 bee venom protein (honey bee) Allergy Swelling Verified 10/17/22 19:05 etonogestrel [From Nexplanon] Allergy Swelling Verified 10/17/22 19:05 lidocaine Allergy Anaphylaxis Verified 10/17/22 19:05 mepivacaine [From Carbocaine] Allergy Swelling Verified 10/17/22 19:05 mushroom Allergy Other Verified 10/17/22 19:05 procaine [From Novocain] Allergy Swelling Verified 10/17/22 19:05 adhesive tape AdvReac Rash Verified 10/17/22 19:05 Surgical History Hx of laparoscopy Social History household members: friend(s) Smoking Status: Current every day smoker tobacco type: cigarettes alcohol intake: current alcohol intake frequency: other substance use type: does not use ROS ROS ED Constitutional Constitutional ED: Denies chills or fever(s) ENT ENT ED: Reports sore throat Cardiovascular Cardiovascular: Denies chest pain Respiratory/Chest Respiratory/Chest: Reports cough and dyspnea Gastrointestinal Gastrointestinal: Reports abdominal pain; Denies diarrhea, nausea or vomiting Genitourinary Genitourinary ED: Denies dysuria Musculoskeletal Musculoskeletal: Denies myalgias Integumentary Denies rash Neurologic Neurologic: Denies headache(s) Hematologic/Lymphatic Hematologic/Lymphatic: Denies easy bleeding or easy bruising EXAM Physical Exam Const Vital Signs: 01/08/23 22:34 01/08/23 22:34 01/08/23 23:26 Temperature 97.0 F L 97.0 F L Temperature Source Temporal Temporal Pulse Rate 104 H 104 H 101 H Respiratory Rate 24 H 24 H 20 H Respiratory Effort Respiratory Depth Respiratory Pattern Normal Blood Pressure 137/80 H 137/80 H Blood Pressure Mean 99 99 Pulse Ox 100 100 Oxygen Delivery Method Room Air Room Air Oxygen Flow Rate (L/min) 01/08/23 23:43 01/09/23 00:41 01/09/23 02:00 Temperature 98.2 F Temperature Source Temporal Pulse Rate 74 Respiratory Rate 15 Respiratory Effort Short of Breath Respiratory Depth Shallow Respiratory Pattern Tachypnea Blood Pressure 132/74 H Blood Pressure Mean 93 Pulse Ox 99 99 Oxygen Delivery Method Room Air Room Air Room Air Oxygen Flow Rate (L/min) 2 Positive well nourished, well developed and obese General Appearance ED: well developed Nutritional Appearance: obese HEENT Reports moist mucous membranes HEENT Narrative: No tongue or lip swelling no oral lesions no airway edema or compromise Eyes PERRL and EOMs intact bilaterally General Eye ED: Negative for pale conjunctiva Neck supple and no JVD Neck Narrative: No crepitance palpated Chest Wall palpation of chest normal Resp Resp Narrative: Breath sounds are diminished throughout there is faint expiratory wheeze noted in the bilateral bases. There is mild tachypnea noted but otherwise no nasal flaring retractions or accessory muscle use Cardio regular rate and regular rhythm GI non-distended GI Narrative: Patient has mild diffuse pain on palpation and postsurgical changes consistent with her recent cholecystectomy. Wounds are clean dry and intact. No voluntary guarding or rigidity. No pulsatile mass or fluid wave Auscultation: normoactive bowel sounds Palpation: soft Extremity normal to inspection Extremity Narrative: No asymmetric edema no pitting edema negative Homans' sign bilaterally Neuro oriented x3 and CN's II-XII intact bilaterally Sensorium / Orientation: alert Psych mental status grossly normal Skin no rashes or lesions noted MDM MDM MDM Narrative Medical decision making narrative: Patient presented to the ER satting 100% on room air but had mild increased work of breathing. She reported her symptoms began after her surgery and we did discuss possible work-up for pulm embolus because of this. However she states that is more sore and irritated in her throat than anything making her feel short of breath and she does not have true chest pain and there is no worsening pain with inspiration and therefore do not feel there is need for a CTA or PE work-up at this time. Patient had a chest x-ray obtained which revealed no infiltrate pneumothorax or pleural effusion. She was given breathing medications and on reevaluation reported feeling much better. Pulse ox remained 100% on room air. At this time I feel her symptoms are related to compression of the thoracic cavity from gas distention with the cholecystectomy as well as tracheal irritation from the ET tube. As x-ray shows no signs of pneumonia and physical exam does not suggest perforation or PE I do not feel there is need for further work-up. Patient will be given symptomatic medications and is otherwise safe for discharge Radiography Diagnostic Testing: Clinical Impression(s) from Imaging Studies Chest X-Ray 01/08/23 00:12 IMPRESSION: No radiographic evidence of acute cardiopulmonary disease. Electronically Signed: Reji Pires MD at 0:40 EST , 1 view chest x-ray is interpreted by the emergency medicine physician reveals no acute infiltrate pneumothorax or pleural effusion Discharge Plan Triage Chief Complaint: Shortness of Breath ED Provider: Mukul Yusuf Dx/Rx/DC Orders Clinical Impression: Asthma exacerbation, Diet-controlled diabetes mellitus Instructions: Asthma Action Plan, Asthma Prescriptions: New albuterol sulfate [Ventolin HFA] 90 mcg/actuation HFA aerosol inhaler 1 - 2 puff inhalation Q4H PRN PRN (Reason: Wheezing) Qty: 1 2RF ipratropium-albuterol 0.5 mg-3 mg(2.5 mg base)/3 mL solution for nebulization 3 ml inhalation Q6H PRN (Reason: shortness of breath or wheezing) Qty: 180 1RF promethazine-codeine 6.25-10 mg/5 mL syrup 5 ml PO 4X/DAY PRN PRN (Reason: cough) 7 Days Qty: 140 0RF (DME) nebulizer and compressor Device See Rx Instructions .Route Qty: 1 0RF Rx Instructions: As directed No Action albuterol sulfate [Ventolin HFA] 1 INHALER inhaler 1 puff inhalation Q4H PRN PRN (Reason: Wheezing) sertraline 100 MG tablet 100 mg PO DAILY ferrous sulfate 325 MG tablet 325 mg PO DAILY Label Comments: Take 1 tablet by mouth twice daily with meals. topiramate 50 MG tablet 50 mg PO BID sulfacetamide sodium 10 % drops 2 drp EACH EYE Q4H PRN Label Comments: APPLY 2 (TWO) DROPS IN BOTH EYES EVERY 4 HOURS FOR 7 DAYS ondansetron [ondansetron] 4 mg tablet,disintegrating 4 mg PO Q8H PRN PRN (Reason: Nausea) Qty: 10 0RF tizanidine [Zanaflex] 4 mg capsule 4 mg PO Q8H PRN (Reason: muscle spasticity) Qty: 14 0RF naproxen [Naprosyn] 500 mg tablet 500 mg PO BID PRN (Reason: pain) Qty: 20 0RF folic acid 1 mg tablet 1 mg PO DAILY Label Comments: Take 1 tablet by mouth once daily. Primary Care Provider: Galdino Nam Referrals: Galdino Nam MD [Primary Care Provider] - Disposition Disposition: Home, Self Care Discharge Date/Time: 01/09/23 02:15
[2023-01-09 02:00] VITALS: O2SAT 99
== END 2023-01-09 02:15 | disposition home or self-care (01) ==
PROVIDERS: Emergency Provider Emergency Medicine; PCP Family Medicine; Visit Provider Emergency Medicine
DX: J45.901 Unspecified asthma with (acute) exacerbation (principal); M48.54XA Collapsed vertebra, not elsewhere classified, thoracic region, initial encounter for fracture; E11.9 Type 2 diabetes mellitus without complications; J02.9 Acute pharyngitis, unspecified; F17.210 Nicotine dependence, cigarettes, uncomplicated; R06.02 Shortness of breath; E66.9 Obesity, unspecified; Z90.49 Acquired absence of other specified parts of digestive tract
CPT/HCPCS: 71045; 94640; 99282

== ENCOUNTER 2023-02-06 21:06 | Emergency (ER) | payer MEDICAID, SELFPAY ==
[2023-02-06 21:07] VITALS: BP 118/78; PULSE 101; RESP 16; RESP 18; TEMP 36.2; BMI 35.0
--- NOTE | 2023-02-06 21:17 | EDS_ITS ---
HPI HPI - GI History of Present Illness Chief Complaint: Diarrhea Detail of Chief Complaint: Abdominal pain, nausea, vomiting diarrhea. Also complains of right-sided h Informant: patient and friend Abdominal Pain/Flank Pain Onset: Today Context: Sudden Onset Timing: Intermittent Quality: Aching Location: Diffuse Current Severity: Mild Maximum Severity: Moderate Worsened by: Nothing Relieved by: Nothing Nausea/Vomiting/Emesis GI Symptom: Positive for Nausea and Vomiting (3 episodes since this morning) Onset: Today Quality: Negative for Nonbilious, Blood streaks, Coffee ground or Hematemesis Diarrhea/Melena/Hematochezia GI Symptom: Positive for Diarrhea (6 episodes since this morning); Negative for Melena or Hematochezia Onset: Today Stool Quality: Positive for Loose and Watery Associated Symptoms Associated Symptoms: Negative for Dysuria, Frequency, Hematuria or Urgency LMP: I am on control . Narrative Narrative: Patient is a 27-year-old G0, P0 female who presents with complaint of abdominal discomfort, nausea, vomiting diarrhea. Illness started today. 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 She also complains of right-sided headache. She has history of migraines. She denies fever, chills night sweats. Denies double vision, blurred vision loss of vision. Denied photophobia or sonophobia. She denies rhinorrhea, congestion postnasal drainage. She denies sore throat. She does endorse dry mouth and thirst. She denies cough or shortness of breath. She denies chest discomfort. She does report diffuse abdominal pain. She denies hematemesis, melena medic easier. She denies urologic symptoms. She denies myalgias or arthralgias. She denies joint swelling. She denies rash. Prior similar symptoms: Yes Recent Illness/Hospitalization: No PFSH PFSH Medical History ADHD Anemia Anxiety Depression Dermoid cyst of right ovary HPV (human papilloma virus) infection IBS (irritable bowel syndrome) Migraines Seizures Home Medications albuterol sulfate 90 mcg/actuation aerosol inhaler (Ventolin HFA) 1 puff inhalation Q4H PRN PRN Wheezing 07/02/17 [History Last Taken Unknown] sertraline 100 mg tablet 100 mg PO DAILY 10/18/17 [History Last Taken Unknown] ferrous sulfate 325 mg (65 mg iron) tablet 325 mg PO DAILY 10/18/19 [History Last Taken Unknown] topiramate 50 mg tablet 50 mg PO BID 03/16/20 [History Last Taken Unknown] sulfacetamide sodium 10 % eye drops 2 drp EACH EYE Q4H PRN 06/19/22 [History Last Taken Unknown] ondansetron 4 mg disintegrating tablet 4 mg PO Q8H PRN PRN Nausea #10 tabs 07/31/22 [Rx Last Taken Unknown] naproxen 500 mg tablet (Naprosyn) 500 mg PO BID PRN pain #20 tabs 09/24/22 [Rx Last Taken Unknown] tizanidine 4 mg capsule (Zanaflex) 4 mg PO Q8H PRN muscle spasticity #14 caps 09/24/22 [Rx Last Taken Unknown] folic acid 1 mg tablet 1 mg PO DAILY 10/17/22 [History Last Taken Unknown] albuterol sulfate 90 mcg/actuation aerosol inhaler (Ventolin HFA) 1 - 2 puff inhalation Q4H PRN PRN Wheezing #1 device 01/09/23 [Rx Last Taken Unknown] ipratropium 0.5 mg-albuterol 3 mg (2.5 mg base)/3 mL nebulization soln 3 ml inha lation Q6H PRN shortness of breath or wheezing #180 mL 01/09/23 [Rx Last Taken Unknown] nebulizer and compressor #1 ea 01/09/23 [Rx Last Taken Unknown] promethazine 6.25 mg-codeine 10 mg/5 mL syrup 5 ml PO 4X/DAY PRN PRN cough 7 days #140 mL 01/09/23 [Rx Last Taken Unknown] Allergy/AdvReac Type Severity Reaction Status Date / Time amoxicillin Allergy Anaphylaxis Verified 10/17/22 19:05 bee venom protein (honey bee) Allergy Swelling Verified 10/17/22 19:05 etonogestrel [From Nexplanon] Allergy Swelling Verified 10/17/22 19:05 lidocaine Allergy Anaphylaxis Verified 10/17/22 19:05 mepivacaine [From Carbocaine] Allergy Swelling Verified 10/17/22 19:05 mushroom Allergy Other Verified 10/17/22 19:05 procaine [From Novocain] Allergy Swelling Verified 10/17/22 19:05 adhesive tape AdvReac Rash Verified 10/17/22 19:05 Surgical History Hx of laparoscopy Social History household members: friend(s) Smoking Status: Former smoker alcohol intake: current alcohol intake frequency: other substance use type: does not use ROS ROS ED Constitutional Constitutional ED: Denies chills, fever(s), subjective, sweats or weight loss ENT ENT ED: Denies ear pain, rhinorrhea or sore throat Cardiovascular Cardiovascular: Denies chest pain or palpitations Respiratory/Chest Respiratory/Chest: Denies cough, dyspnea or dyspnea on exertion Gastrointestinal Gastrointestinal: Reports abdominal pain, nausea and vomiting; Denies constipation or melena Genitourinary Genitourinary ED: Denies dysuria, hematuria or urinary frequency Musculoskeletal Musculoskeletal: Denies arthralgias, back pain, myalgias or neck pain Integumentary Denies rash Neurologic Neurologic: Reports headache(s); Denies paresthesias or weakness Endocrine Endocrinology: Denies polydipsia, polyphagia or polyuria Hematologic/Lymphatic Hematologic/Lymphatic: Denies easy bleeding or easy bruising EXAM Physical Exam Const Vital Signs: 02/06/23 21:07 02/06/23 21:07 02/06/23 23:08 Temperature 97.1 F L 97.1 F L Temperature Source Temporal Temporal Pulse Rate 101 H 101 H 83 Respiratory Rate 16 18 16 Blood Pressure 118/78 118/78 112/71 Blood Pressure Mean 91 91 84 Pulse Ox 98 Oxygen Delivery Method Room Air Positive well nourished, well developed, obese and unkempt General Appearance ED: unkempt, well developed and NAD; Negative for pallor Nutritional Appearance: obese HEENT Reports TM's clear and dry mucous membranes HEENT Narrative: Ears are normal. Nares patent. Posterior pharynx is normal. normocephalic and atraumatic Tympanic Membrane ED: Yes TM's clear Mouth ED: Yes dry mucous membranes Mouth: dry mucous membranes Eyes PERRL and EOMs intact bilaterally General Eye ED: Negative for pale conjunctiva or scleral icterus Neck no lymphadenopathy, supple and no JVD Resp normal respiratory effort and clear to auscultation bilaterally Cardio regular rate, regular rhythm, S1 normal heart sound, S2 normal heart sound and no murmurs GI non-tender, non-distended and no masses Auscultation: hyperactive bowel sounds Palpation: soft Back/Spine no CVA tenderness Extremity full ROM General Extremety ED: Negative for edema or tenderness General Extremity: Negative for edema Neuro CN's II-XII intact bilaterally, moves all extremities, no sensory deficits noted and gait normal Sensorium / Orientation: alert Psych mental status grossly normal and thought process normal Appearance: unkempt Skin no wounds General Skin Exam: Negative for jaundice or pallor Lesions: no lesions Rashes: no rashes MDM MDM MDM Narrative Medical decision making narrative: Patient presents with abdominal pain with nausea vomiting diarrhea. Suspect this is related to a viral illness. Headache may be a viral cephalgia. If no improvement with treatment will treat for migraine headache. Clinically she appears dehydrated and is tachycardic will order 1 L of normal saline. Zofran was ordered for her nausea and vomiting. Will order Imodium for her diarrhea and Bentyl for her reported cramping abdominal pain as well. Prior records were reviewed. Patient does have history of migraine headaches. She has not been in the emergency department recently for migraine headaches. Past history is remarkable for alcohol syndrome. Because she has history of diet-controlled diabetes we will obtain PGT to assess glucose. Lab Data Labs: Laboratory Results - last 24 hr 02/06/23 21:39 POC Glucose 130 H Treatment and Re-Evaluation :: Patient was reassessed at 2318. She has had no vomiting or diarrhea during her stay. He has passed p.o. challenge. She reports she feels better. She will be discharged to home. Discharge Plan Triage Chief Complaint: Diarrhea ED Provider: Pola Garza Dx/Rx/DC Orders Clinical Impression: Combined abdominal pain, vomiting, and diarrhea, alcohol syndrome, Diet- controlled diabetes mellitus, Mild dehydration Instructions: ED Vomiting and Diarrhea ... Prescriptions: No Action albuterol sulfate [Ventolin HFA] 1 INHALER inhaler 1 puff inhalation Q4H PRN PRN (Reason: Wheezing) sertraline 100 MG tablet 100 mg PO DAILY ferrous sulfate 325 MG tablet 325 mg PO DAILY Label Comments: Take 1 tablet by mouth twice daily with meals. topiramate 50 MG tablet 50 mg PO BID sulfacetamide sodium 10 % drops 2 drp EACH EYE Q4H PRN Label Comments: APPLY 2 (TWO) DROPS IN BOTH EYES EVERY 4 HOURS FOR 7 DAYS ondansetron [ondansetron] 4 mg tablet,disintegrating 4 mg PO Q8H PRN PRN (Reason: Nausea) Qty: 10 0RF tizanidine [Zanaflex] 4 mg capsule 4 mg PO Q8H PRN (Reason: muscle spasticity) Qty: 14 0RF naproxen [Naprosyn] 500 mg tablet 500 mg PO BID PRN (Reason: pain) Qty: 20 0RF folic acid 1 mg tablet 1 mg PO DAILY Label Comments: Take 1 tablet by mouth once daily. albuterol sulfate [Ventolin HFA] 90 mcg/actuation HFA aerosol inhaler 1 - 2 puff inhalation Q4H PRN PRN (Reason: Wheezing) Qty: 1 2RF ipratropium-albuterol 0.5 mg-3 mg(2.5 mg base)/3 mL solution for nebulization 3 ml inhalation Q6H PRN (Reason: shortness of breath or wheezing) Qty: 180 1RF promethazine-codeine 6.25-10 mg/5 mL syrup 5 ml PO 4X/DAY PRN PRN (Reason: cough) 7 Days Qty: 140 0RF (DME) nebulizer and compressor Device See Rx Instructions .Route Qty: 1 0RF Rx Instructions: As directed Stand Alone Forms: ED Work / School Excuse Primary Care Provider: Galdino Nam Referrals: Galdino Nam MD [Primary Care Provider] - 3-5 Days if not improving Disposition Disposition: Home, Self Care
[2023-02-06] MEDS: 0.9% Normal Saline 1,000 ML 1000 ML IV (21:32)
[2023-02-06] MEDS: Ondansetron 4 MG/2 ML Vial IV (21:33)
[2023-02-06 22:01] LABS: Bedside Glucose 130 mg/dL (74-106)
[2023-02-06 23:08] VITALS: BP 112/71; PULSE 83; RESP 16; O2SAT 98
== END 2023-02-06 23:30 | disposition home or self-care (01) ==
PROVIDERS: Emergency Provider Emergency Medicine; PCP Family Medicine; Visit Provider Emergency Medicine
DX: R10.9 Unspecified abdominal pain (principal); E11.9 Type 2 diabetes mellitus without complications; R19.7 Diarrhea, unspecified; Z87.891 Personal history of nicotine dependence; Q86.0 Fetal alcohol syndrome (dysmorphic); E86.0 Dehydration; G43.909 Migraine, unspecified, not intractable, without status migrainosus; E66.9 Obesity, unspecified
CPT/HCPCS: 82962; 96361; 96374; 99282; J7030; A4216; J2405

== ENCOUNTER 2023-02-11 15:50 | Emergency (ER) | payer MEDICAID, SELFPAY ==
[2023-02-11 15:50] VITALS: BP 129/79; PULSE 93; RESP 18; TEMP 35.9; O2SAT 97
[2023-02-11 15:55] VITALS: BMI 36.2
--- NOTE | 2023-02-11 16:19 | EDS_ITS ---
HPI History of Present Illness Chief Complaint: Nosebleed Narrative Narrative: Patient [facility] Medical History ADHD Anemia Anxiety Depression Dermoid cyst of right ovary HPV (human papilloma virus) infection IBS (irritable bowel syndrome) Migraines Seizures Home Medications albuterol sulfate 90 mcg/actuation aerosol inhaler (Ventolin HFA) 1 puff inhalation Q4H PRN PRN Wheezing 07/02/17 [History Last Taken Unknown] sertraline 100 mg tablet 100 mg PO DAILY 10/18/17 [History Last Taken Unknown] ferrous sulfate 325 mg (65 mg iron) tablet 325 mg PO DAILY 10/18/19 [History Last Taken Unknown] topiramate 50 mg tablet 50 mg PO BID 03/16/20 [History Last Taken Unknown] sulfacetamide sodium 10 % eye drops 2 drp EACH EYE Q4H PRN 06/19/22 [History Last Taken Unknown] ondansetron 4 mg disintegrating tablet 4 mg PO Q8H PRN PRN Nausea #10 tabs 07/31/22 [Rx Last Taken Unknown] naproxen 500 mg tablet (Naprosyn) 500 mg PO BID PRN pain #20 tabs 09/24/22 [Rx Last Taken Unknown] tizanidine 4 mg capsule (Zanaflex) 4 mg PO Q8H PRN muscle spasticity #14 caps 09/24/22 [Rx Last Taken Unknown] folic acid 1 mg tablet 1 mg PO DAILY 10/17/22 [History Last Taken Unknown] albuterol sulfate 90 mcg/actuation aerosol inhaler (Ventolin HFA) 1 - 2 puff inhalation Q4H PRN PRN Wheezing #1 device 01/09/23 [Rx Last Taken Unknown] ipratropium 0.5 mg-albuterol 3 mg (2.5 mg base)/3 mL nebulization soln 3 ml inhalation Q6H PRN shortness of breath or wheezing #180 mL 01/09/23 [Rx Last Taken Unknown] nebulizer and compressor #1 ea 01/09/23 [Rx Last Taken Unknown] promethazine 6.25 mg-codeine 10 mg/5 mL syrup 5 ml PO 4X/DAY PRN PRN cough 7 days #140 mL 01/09/23 [Rx Last Taken Unknown] Allergy/AdvReac Type Severity Reaction Status Date / Time amoxicillin Allergy Anaphylaxis Verified 02/11/23 15:55 bee venom protein (honey bee) Allergy Swelling Verified 02/11/23 15:55 etonogestrel [From Nexplanon] Allergy Swelling Verified 02/11/23 15:55 lidocaine Allergy Anaphylaxis Verified 02/11/23 15:55 mepivacaine [From Carbocaine] Allergy Swelling Verified 02/11/23 15:55 mushroom Allergy Other Verified 02/11/23 15:55 procaine [From Novocain] Allergy Swelling Verified 02/11/23 15:55 adhesive tape AdvReac Rash Verified 02/11/23 15:55 Surgical History (Updated 02/11/23 @ 15:54 by Susan Munoz) Hx of cholecystectomy Hx of laparoscopy Social History household members: friend(s) Smoking Status: Former smoker alcohol intake: current alcohol intake frequency: other substance use type: does not use EXAM Physical Exam Const Vital Signs: 02/11/23 15:50 Temperature 96.6 F L Temperature Source Temporal Pulse Rate 93 Respiratory Rate 18 Blood Pressure 129/79 H Blood Pressure Mean 95 Pulse Ox 97 Oxygen Delivery Method Room Air Discharge Plan Triage Chief Complaint: Nosebleed ED Midlevel Provider: Angelika Victoria ED Provider: Stanislaw Becker Dx/Rx/DC Orders Prescriptions: No Action albuterol sulfate [Ventolin HFA] 1 INHALER inhaler 1 puff inhalation Q4H PRN PRN (Reason: Wheezing) sertraline 100 MG tablet 100 mg PO DAILY ferrous sulfate 325 MG tablet 325 mg PO DAILY Label Comments: Take 1 tablet by mouth twice daily with meals. topiramate 50 MG tablet 50 mg PO BID sulfacetamide sodium 10 % drops 2 drp EACH EYE Q4H PRN Label Comments: APPLY 2 (TWO) DROPS IN BOTH EYES EVERY 4 HOURS FOR 7 DAYS ondansetron [ondansetron] 4 mg tablet,disintegrating 4 mg PO Q8H PRN PRN (Reason: Nausea) Qty: 10 0RF tizanidine [Zanaflex] 4 mg capsule 4 mg PO Q8H PRN (Reason: muscle spasticity) Qty: 14 0RF naproxen [Naprosyn] 500 mg tablet 500 mg PO BID PRN (Reason: pain) Qty: 20 0RF folic acid 1 mg tablet 1 mg PO DAILY Label Comments: Take 1 tablet by mouth once daily. albuterol sulfate [Ventolin HFA] 90 mcg/actuation HFA aerosol inhaler 1 - 2 puff inhalation Q4H PRN PRN (Reason: Wheezing) Qty: 1 2RF ipratropium-albuterol 0.5 mg-3 mg(2.5 mg base)/3 mL solution for nebulization 3 ml inhalation Q6H PRN (Reason: shortness of breath or wheezing) Qty: 180 1RF promethazine-codeine 6.25-10 mg/5 mL syrup 5 ml PO 4X/DAY PRN PRN (Reason: cough) 7 Days Qty: 140 0RF (DME) nebulizer and compressor Device See Rx Instructions .Route Qty: 1 0RF Rx Instructions: As directed Primary Care Provider: Galdino Nam Referrals: Galdino Nam MD [Primary Care Provider] -
[2023-02-11] MEDS: 0.9% Normal Saline 1,000 ML 999 ML IV (16:34)
[2023-02-11] MEDS: Loperamide 2 MG Capsule PO (16:38)
[2023-02-11] MEDS: Topiramate 50 MG Tablet PO (16:39)
--- NOTE | 2023-02-11 16:41 | ED.RN ---
PRIOR TO ADMINISTRATION OF MEDICATION, PT STATES THERE IS NO WAY SHE COULD BE .
[2023-02-11] MEDS: Ketorolac 15 MG/ML Vial IV (17:33)
[2023-02-11 18:04] VITALS: BP 118/75; PULSE 70; RESP 16; O2SAT 96
--- NOTE | 2023-02-11 18:15 | EDS_ITS ---
HPI <LAYO Krueger - Last Filed: 02/11/23 18:27> HPI - URI History of Present Illness Chief Complaint: Nosebleed Narrative Narrative: Patient presenting today with a nosebleed that started earlier this evening. She states that she has had about 3 nosebleeds today in the left nostril and does not have a history of nosebleeds. Patient also states that she has had a posterior headache that came on gradually today while at work. She has a history of migraines and states this is not much different from her usual headaches. She reports some photophobia. She was also here few days ago due to nausea, vomiting, abdominal pain, diarrhea and was told that she probably has a viral illness. She states that she still has had a few bouts of diarrhea since then but her other symptoms have resolved. She denies any current abdominal pain, nausea, vomiting, fever, chills. ROS <LAYO Krueger - Last Filed: 02/11/23 18:27> ROS ED Constitutional Constitutional ED: Denies chills, fever(s) or sweats Eyes Eyes: Denies blurry vision or diplopia Cardiovascular Cardiovascular: Denies chest pain or palpitations Respiratory/Chest Respiratory/Chest: Denies cough or dyspnea Gastrointestinal Gastrointestinal: Reports diarrhea; Denies abdominal pain, constipation, nausea or vomiting Genitourinary Genitourinary ED: Denies dysuria, hematuria or urinary urgency Musculoskeletal Musculoskeletal: Denies arthralgias, back pain, myalgias or neck pain Integumentary Denies abscess, Abrasions or rash Neurologic Neurologic: Denies confusion, dizziness or paresthesias Psychiatric Psychiatric: Denies anxiety, depression, suicidal ideation or suicidal thoughts PFSH <LAYO Krueger - Last Filed: 02/11/23 18:27> [facility] Medical History ADHD Anemia Anxiety Depression Dermoid cyst of right ovary HPV (human papilloma virus) infection IBS (irritable bowel syndrome) Migraines Seizures Home Medications albuterol sulfate 90 mcg/actuation aerosol inhaler (Ventolin HFA) 1 puff inhalation Q4H PRN PRN Wheezing 07/02/17 [History Last Taken Unknown] sertraline 100 mg tablet 100 mg PO DAILY 10/18/17 [History Last Taken Unknown] ferrous sulfate 325 mg (65 mg iron) tablet 325 mg PO DAILY 10/18/19 [History Last Taken Unknown] topiramate 50 mg tablet 50 mg PO BID 03/16/20 [History Last Taken Unknown] sulfacetamide sodium 10 % eye drops 2 drp EACH EYE Q4H PRN 06/19/22 [History Last Taken Unknown] ondansetron 4 mg disintegrating tablet 4 mg PO Q8H PRN PRN Nausea #10 tabs 07/31/22 [Rx Last Taken Unknown] naproxen 500 mg tablet (Naprosyn) 500 mg PO BID PRN pain #20 tabs 09/24/22 [Rx Last Taken Unknown] tizanidine 4 mg capsule (Zanaflex) 4 mg PO Q8H PRN muscle spasticity #14 caps 09/24/22 [Rx Last Taken Unknown] folic acid 1 mg tablet 1 mg PO DAILY 10/17/22 [History Last Taken Unknown] albuterol sulfate 90 mcg/actuation aerosol inhaler (Ventolin HFA) 1 - 2 puff inhalation Q4H PRN PRN Wheezing #1 device 01/09/23 [Rx Last Taken Unknown] ipratropium 0.5 mg-albuterol 3 mg (2.5 mg base)/3 mL nebulization soln 3 ml inhalation Q6H PRN shortness of breath or wheezing #180 mL 01/09/23 [Rx Last Taken Unknown] nebulizer and compressor #1 ea 01/09/23 [Rx Last Taken Unknown] promethazine 6.25 mg-codeine 10 mg/5 mL syrup 5 ml PO 4X/DAY PRN PRN cough 7 days #140 mL 01/09/23 [Rx Last Taken Unknown] loperamide 2 mg capsule 2 mg PO Q6H PRN loose stool 4 days #10 caps 02/11/23 [Rx Last Taken Unknown] Allergy/AdvReac Type Severity Reaction Status Date / Time amoxicillin Allergy Anaphylaxis Verified 02/11/23 15:55 bee venom protein (honey bee) Allergy Swelling Verified 02/11/23 15:55 etonogestrel [From Nexplanon] Allergy Swelling Verified 02/11/23 15:55 lidocaine Allergy Anaphylaxis Verified 02/11/23 15:55 mepivacaine [From Carbocaine] Allergy Swelling Verified 02/11/23 15:55 mushroom Allergy Other Verified 02/11/23 15:55 procaine [From Novocain] Allergy Swelling Verified 02/11/23 15:55 adhesive tape AdvReac Rash Verified 02/11/23 15:55 Surgical History Hx of cholecystectomy Hx of laparoscopy Social History household members: friend(s) Smoking Status: Former smoker alcohol intake: current alcohol intake frequency: other substance use type: does not use EXAM <LAYO Krueger - Last Filed: 02/11/23 18:27> Physical Exam Const Vital Signs: 02/11/23 15:50 02/11/23 18:04 Temperature 96.6 F L Temperature Source Temporal Pulse Rate 93 70 Respiratory Rate 18 16 Blood Pressure 129/79 H 118/75 Blood Pressure Mean 95 Pulse Ox 97 96 Oxygen Delivery Method Room Air Positive well nourished, well developed and no apparent distress General Appearance ED: well developed HEENT Reports normocephalic and head/scalp atraumatic Mouth ED: Yes moist mucous membranes normal Eyes PERRL and EOMs intact bilaterally Neck full ROM and supple Chest Wall inspection of chest normal Resp normal respiratory effort and clear to auscultation bilaterally Cardio regular rate and regular rhythm GI soft to palpation, non-tender, non-distended and no masses Back/Spine normal ROM and normal to inspection Extremity normal to inspection and full ROM Neuro oriented x3, CN's II-XII intact bilaterally, moves all extremities, no focal motor deficits and no sensory deficits noted Sensorium / Orientation: awake and alert Psych mental status grossly normal and thought process normal Skin no rashes or lesions noted and no wounds <Dr. Stanislaw Becker MD - Last Filed: 02/11/23 19:16> Physical Exam Const Vital Signs: 02/11/23 15:50 02/11/23 18:04 Temperature 96.6 F L Temperature Source Temporal Pulse Rate 93 70 Respiratory Rate 18 16 Blood Pressure 129/79 H 118/75 Blood Pressure Mean 95 Pulse Ox 97 96 Oxygen Delivery Method Room Air MDM <LAYO Krueger - Last Filed: 02/11/23 18:27> MDM MDM Narrative Medical decision making narrative: Patient presenting today due to a nosebleed. However, she does no longer has any bleeding from her nose. There is no bleeding in the posterior pharynx, no septal deviation. Patient has had a lot of nasal congestion over the past few days and states she has been blowing her nose a lot. Patient reporting a headache as well. I do not feel that any head imaging is necessary as patient also had a headache on her previous ED visit that did go away and has a history of migraines. She did not take her topiramate today for her headache because she cannot find it. She has had a few bouts of diarrhea today but was recently in the emergency department due to symptoms of gastroenteritis. She has been given topiramate as well as fluids and Imodium. On reexamination patient states that her headache is still there so she has been given Toradol. Reexamination patient states she is feeling much better. She will be discharged home in stable condition with return precautions. Patient symptoms are likely due to her recent gastroenteritis. She is to follow-up with her PCP and is comfortable with plan. <Dr. Stanislaw Becker MD - Last Filed: 02/11/23 19:16> [facility] Treatment and Re-Evaluation Narrative: I have personally performed a face to face assessment of the patient and have reviewed the FAINA Note. I performed a substantive portion of the visit including all aspects of the following. My garza findings include: History: Patient states that for about a week or week and a half she has had various symptoms. She started with some diarrhea nausea vomiting. That seemed to get better. Now the diarrhea is starting to come back. No blood seen in that. But she is also developed some nasal congestion. At first she said a few days but then she stated that this actually predated her diarrhea. No purulent discharge. No facial pain. She did have some epistaxis from the left side today. But that has stopped spontaneously. She is on no anticoagulation. She also complains of a slight headache but it is typical of her migraine. Its not sudden onset nor the worst ever. Exam: Patient is nontoxic. She is pleasant and smiling in the room. Light does not bother her. No sign of facial trauma. No sinus tenderness. There is some dried blood in the left naris but I do not see any active bleeding. Pharynx shows no posterior bleeding down her pharynx. No exudate. Voice is normal. Tympanic membranes show some fluid but no sign of infection. No erythema at all. Her lungs are clear bilaterally. Her heart is regular. Her abdomen is soft and nontender. Medical Decision Making: Patient was given some IV fluids. Given her headache. She normally takes topiramate but could not find it at home so we did give her some of this for the headache. We then gave her some Toradol. No rebleeding of the nose. I do not think this needs packing. I am not getting an indication of sinusitis. I think her symptoms are likely viral and no antibiotics are needed. Discharge Plan Triage Chief Complaint: Nosebleed ED Midlevel Provider: Angelika Victoria ED Provider: Stanislaw Becker Dx/Rx/DC Orders Clinical Impression: Epistaxis, Acute headache, Diarrhea Instructions: Self-Care for Headaches, ED Epistaxis (Adult) Prescriptions: New loperamide 2 mg capsule 2 mg PO Q6H PRN (Reason: loose stool) 4 Days Qty: 10 0RF No Action albuterol sulfate [Ventolin HFA] 1 INHALER inhaler 1 puff inhalation Q4H PRN PRN (Reason: Wheezing) sertraline 100 MG tablet 100 mg PO DAILY ferrous sulfate 325 MG tablet 325 mg PO DAILY Label Comments: Take 1 tablet by mouth twice daily with meals. topiramate 50 MG tablet 50 mg PO BID sulfacetamide sodium 10 % drops 2 drp EACH EYE Q4H PRN Label Comments: APPLY 2 (TWO) DROPS IN BOTH EYES EVERY 4 HOURS FOR 7 DAYS ondansetron [ondansetron] 4 mg tablet,disintegrating 4 mg PO Q8H PRN PRN (Reason: Nausea) Qty: 10 0RF tizanidine [Zanaflex] 4 mg capsule 4 mg PO Q8H PRN (Reason: muscle spasticity) Qty: 14 0RF naproxen [Naprosyn] 500 mg tablet 500 mg PO BID PRN (Reason: pain) Qty: 20 0RF folic acid 1 mg tablet 1 mg PO DAILY Label Comments: Take 1 tablet by mouth once daily. albuterol sulfate [Ventolin HFA] 90 mcg/actuation HFA aerosol inhaler 1 - 2 puff inhalation Q4H PRN PRN (Reason: Wheezing) Qty: 1 2RF ipratropium-albuterol 0.5 mg-3 mg(2.5 mg base)/3 mL solution for nebulization 3 ml inhalation Q6H PRN (Reason: shortness of breath or wheezing) Qty: 180 1RF promethazine-codeine 6.25-10 mg/5 mL syrup 5 ml PO 4X/DAY PRN PRN (Reason: cough) 7 Days Qty: 140 0RF (DME) nebulizer and compressor Device See Rx Instructions .Route Qty: 1 0RF Rx Instructions: As directed Primary Care Provider: Galdino Nam Referrals: Galdino Nam MD [Primary Care Provider] - 3-5 Days if not improving Activity Restrictions/Additional Instructions: Please follow-up with your PCP. Return for any worsening of symptoms. You can try applying Vaseline on the inside of her nostrils to help with moisture. Disposition Disposition: Home, Self Care Discharge Date/Time: 02/11/23 18:16
== END 2023-02-11 18:16 | disposition home or self-care (01) ==
PROVIDERS: Emergency Provider Emergency Medicine; PCP Family Medicine; Visit Provider Emergency Medicine
DX: R04.0 Epistaxis (principal); R51.9 Headache, unspecified; R19.7 Diarrhea, unspecified; Z87.891 Personal history of nicotine dependence
CPT/HCPCS: 96361; 96374; 99285; J7030; A4216

== ENCOUNTER 2025-08-10 12:32 | Emergency (ER) | payer MEDICARE, MEDICAID, SELFPAY ==
[2025-08-10 12:33] VITALS: BP 102/62; PULSE 77; RESP 18; TEMP 36.5; O2SAT 97; BMI 26.9
--- NOTE | 2025-08-10 13:00 | RAD_ITS ---
PROCEDURE: ANKLE MIN 3 VIEWS 08/10/2025 REASON FOR EXAM: PAIN, SWELLING TECHNIQUE: Procedure Code: RADANK Modality: DX Procedure: ANKLE MIN 3 VIEWS Laterality: Left COMPARISON: Left ankle study 12/17/2020. RAD/Ankle min 3 Views IMPRESSION: On lateral imaging, normal contour of the Achilles tendon is seen. No ankle joint effusion is noted. No significant arthritic process or joint narrowing is seen. No fracture, dislocation, or other significant osseous or joint space abnormali ty is evident. Reading Location: [place] [id number]
--- NOTE | 2025-08-10 13:05 | RAD_ITS ---
PROCEDURE: FOOT MIN 3 VIEWS 08/10/2025 REASON FOR EXAM: PAIN and swelling. TECHNIQUE: Procedure Code: RADFO Modality: DX Procedure: FOOT MIN 3 VIEWS Laterality: Left COMPARISON: Left ankle study of 08/10/2025 RAD/Foot min 3 Views IMPRESSION: On lateral imaging, normal contour of the Achilles tendon is seen. No ankle joint effusion is noted. No significant arthritic process or joint narrowing is noted. Satisfactory osseous alignment is present. No fracture or dislocation is evident. If clinical concern persists, short-term follow-up imaging may be obtained to r ule out a currently occult fracture. Reading Location: [place] [id number]
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
[2025-08-10 14:09] VITALS: BP 112/77; PULSE 69; RESP 16; TEMP 36.5; O2SAT 98
== END 2025-08-10 14:33 | disposition home or self-care (01) ==
PROVIDERS: Emergency Provider Emergency Medicine; PCP Family Medicine; Visit Provider Emergency Medicine
DX: M25.572 Pain in left ankle and joints of left foot (principal); M79.672 Pain in left foot; J45.909 Unspecified asthma, uncomplicated; Z87.891 Personal history of nicotine dependence; Q86.0 Fetal alcohol syndrome (dysmorphic)
CPT/HCPCS: 73610; 73630; 99283

== ENCOUNTER 2025-09-04 21:21 | Emergency (ER) | payer MEDICARE, MEDICAID, SELFPAY ==
[2025-09-04 21:26] VITALS: BP 147/93; PULSE 71; RESP 18; TEMP 37; O2SAT 99; BMI 31.7
--- NOTE | 2025-09-04 21:49 | CT_ITS ---
CT/Abdomen/Pelvis W IV Cont ONLY IMPRESSION: 1. Right ovarian cyst measuring 2.5 cm. 2. Large amount of stool within the colon. Reading Location: [id number]
--- NOTE | 2025-09-04 21:50 | EDS_ITS ---
HPI HPI - GI History of Present Illness Chief Complaint: Abd Pain Informant: patient Abdominal Pain/Flank Pain Context: Gradual Onset Timing: Continuous Quality: Cramping Location: RLQ and LLQ Current Severity: Moderate Maximum Severity: Moderate Worsened by: Nothing Relieved by: Nothing Nausea/Vomiting/Emesis GI Symptom: Positive for Nausea; Negative for Vomiting Severity: Mild Diarrhea/Melena/Hematochezia GI Symptom: Positive for Diarrhea; Negative for Melena or Hematochezia Onset: Today Stool Quality: Positive for Loose Severity: Mild Associated Symptoms Associated Symptoms: Negative for Dysuria, Frequency, Hematuria or Urgency Narrative Narrative: 30-year-old female history of anemia, IBS, prior cholecystectomy and prior right ovary was removed with her ovarian cyst. Patient is she has had abdominal pain for about a week constant bilateral lower quadrants. Associated with nausea and diarrhea no vomiting. Denies any fever no dysuria. No trauma. States she is not . Denies any weight change. No has her appendix. Prior similar symptoms: No Recent Illness/Hospitalization: No PFSH PFSH Medical History Anemia ADHD Dermoid cyst of right ovary Migraines Seizures Anxiety Depression HPV (human papilloma virus) infection IBS (irritable bowel syndrome) Home Medications ?Medication ?Instructions ?Recorded ?Last Taken ?Type albuterol sulfate 90 mcg/actuation 1 puff inhalation Q 4H PRN PRN 07/02/17 Unknown History aerosol inhaler (Ventolin HFA) Wheezing sertraline 100 mg tablet 100 mg PO DAILY 10/18/17 Unk nown History ferrous sulfate 325 mg (65 mg 325 mg PO DAILY 10/18/19 Unknown History iron) tablet topiramate 50 mg tablet 50 mg PO BID 03/16/20 Unknow n History sulfacetamide sodium 10 % eye drops 2 drp EACH EYE Q4H PRN 06/19/22 Unknown History ondansetron 4 mg disintegrating 4 mg PO Q8H PRN PRN Na usea #10 tabs 07/31/22 Unknown Rx tablet naproxen 500 mg tablet (Naprosyn) 500 mg PO BID PRN pa in #20 tabs 09/24/22 Unknown Rx tizanidine 4 mg capsule (Zanaflex) 4 mg PO Q8H PRN mus carmen spasticity 09/24/22 Unknown Rx #14 caps folic acid 1 mg tablet 1 mg PO DAILY 10/17/22 Unkno wn History albuterol sulfate 90 mcg/actuation 1 - 2 puff inhalati on Q4H PRN PRN 01/09/23 Unknown Rx aerosol inhaler (Ventolin HFA) Wheezing #1 device ipratropium 0.5 mg-albuterol 3 mg 3 ml inhalation Q6H PRN shortness 01/09/23 Unknown Rx (2.5 mg base)/3 mL nebulization of breath or wheezing #180 mL soln nebulizer and compressor #1 ea 01/09/23 Unknown Rx promethazine 6.25 mg-codeine 10 5 ml PO 4X/DAY PRN PRN cough 7 01/09/23 Unknown Rx mg/5 mL syrup days #140 mL loperamide 2 mg capsule 2 mg PO Q6H PRN loose stool 4 days 02/11/23 Unknown Rx #10 caps Allergy/AdvReac Type Severity Reaction Status Date / Time amoxicillin Allergy Anaphylaxis Verified 09/04/25 21:24 bee venom protein (honey bee) Allergy Swelling Verified 09/04/25 21:24 etonogestrel (From Nexplanon) Allergy Swelling Verified 09/04/25 21:24 lidocaine Allergy Anaphylaxis Verified 09/04/25 21:24 mepivacaine (From Carbocaine) Allergy Swelling Verified 09/04/25 21:24 mushroom Allergy Other Verified 09/04/25 21:24 procaine (From Novocain) Allergy Swelling Verified 09/04/25 21:24 adhesive tape AdvReac Rash Verified 09/04/25 21:24 Surgical History Hx of cholecystectomy Hx of laparoscopy Social History household members: friend(s) Smoking Status: Current every day smoker tobacco type: cigarettes and e- cigarettes alcohol intake: current alcohol intake frequency: other substance use type: does not use ROS ROS ED ROS Narrative Bilateral lower quadrant abdominal pain. Nausea and diarrhea. Constitutional Constitutional ED: Denies chills or fever(s) ENT ENT ED: Denies ear pain Cardiovascular Cardiovascular: Denies chest pain Respiratory/Chest Respiratory/Chest: Denies cough or dyspnea Gastrointestinal Gastrointestinal: Reports abdominal pain, diarrhea and nausea Genitourinary Genitourinary ED: Denies dysuria or hematuria Musculoskeletal Musculoskeletal: Denies arthralgias Integumentary Denies abscess Neurologic Neurologic: Denies headache(s) Endocrine Endocrinology: Denies polydipsia Hematologic/Lymphatic Hematologic/Lymphatic: Denies easy bleeding Allergic/Immunologic Allergic/Immunologic ED: Denies mouth swelling, tongue swelling or urticaria EXAM Physical Exam Narrative Exam Narrative: 30-year-old female sitting upright in bed. Vital signs stable afebrile. Planing of lower abdominal pain. H EENT exam pupils are round react light. Active motions are intact. Neck nontender no lymphadenopathy. Back nontender. Lungs clear to auscultation bilaterally. Heart regular rhythm no murmur. Chest wall ribs nontender. Abdomen soft tender both lower quadrants and suprapubic region. No hernia or mass. No obstruction. Upper quadrants are nontender. Moving all 4 extremities. Nontender no edema. She does have a walking boot on the left lower leg and foot. Back nontender. Neurologically she is awake alert. Answering questions following commands. Does have a speech impairment. Const Vital Signs: 09/04/25 21:26 09/04/25 22:45 Temperature 98.6 F Temperature Source Oral Pulse Rate 71 82 Respiratory Rate 18 16 Blood Pressure 147/93 H 139/88 H Blood Pressure Mean 111 105 Pulse Ox 99 97 Oxygen Delivery Method Room Air Room Air Positive well nourished and well developed; Negative for cachectic, contractures or unkempt General Appearance ED: well developed and NAD; Negative for unkempt, cachectic, contractures or pallor Nutritional Appearance: Negative for cachectic HEENT Reports moist mucous membranes normocephalic and atraumatic Eyes PERRL and EOMs intact bilaterally Neck no lymphadenopathy, supple and no JVD Resp normal respiratory effort and clear to auscultation bilaterally Cardio regular rate, regular rhythm, S1 normal heart sound, S2 normal heart sound and no murmurs Rate: Negative for bradycardia or tachycardic GI non-distended and no masses; Negative for non-tender Inspection: Negative for abdominal distention Auscultation: normoactive bowel sounds Palpation: soft and tender; Negative for guarding, rigid, hepatomegaly, splenom egaly, hernia, mass, pulsatile mass or rebound tenderness present Back/Spine no CVA tenderness General Back: Negative for CVA tenderness Cervical Spine: Negative for cervical spine tenderness Thoracic Spine / Upper Back: Negative for thoracic spinal tenderness Lumbar Spine / Lower Back: Negative for lumbar spinal tenderness Extremity full ROM General Extremety ED: Negative for edema or tenderness General Extremity: Negative for edema Neuro CN's II-XII intact bilaterally and moves all extremities Sensorium / Orientation: alert, oriented to person, oriented to place and oriented to time Motor Exam: strength 5/5 throughout Psych mental status grossly normal and thought process normal Appearance: Negative for unkempt Skin no wounds General Skin Exam: Negative for jaundice or pallor Lesions: no lesions Rashes: no rashes Trauma: Negative for abrasion Nails: Negative for discolored MDM MDM MDM Narrative Medical decision making narrative: 30-year-old female with history of irritable bowel, cholecystectomy and right ovary resection due to cyst. Complaining of bilateral lower quadrant abdominal pain for a week. She is tender on exam. To be a morphine and Zofran. For pain. CAT scan labs to be obtained. Repeat exam patient is doing better at 11 PM. When she was initially given the morphine for pain she felt like she was having possible chest discomfort. We obtained an EKG was a sinus rhythm with no acute findings. I do not think this was cardiac in etiology. Awaiting her CT results. Repeat exam at 11:48 PM. Patient is resting more comfortably. She still has some tenderness in both lower quadrants. Lab work was unremarkable as was her UA. CAT scan is consistent with constipation and a right ovarian cyst. She and I discussed all that. She is comfortable being discharged home. Should be treated for constipation with GoLytely. Motrin and Tylenol for the cyst pain and follow-up with [facility]. Patient is comfortable with the plan. History & Record Review Discussion w/independent historian: Patient Additional record(s) reviewed:: Prior inpatient record, Prior outpatient record, Prior ED visit and Prior labs Lab Data Attestation: I reviewed the patient's lab results. Lab results narrative: CBC unremarkable. White count 8. H&H 13 and 37. Platelets 295. Electrolytes show a gap of 12. BUN and creatinine are 9 and 0.6. Glucose 85. Liver enzymes are normal. Lipase normal at 31. negative. Labs: Laboratory Results - last 24 hr 09/04/25 09/04/25 21:30 23:01 WBC 8.6 RBC 4.39 Hgb 13.1 Hct 37.5 MCV 85.4 MCH 29.8 MCHC 34.9 RDW Std Deviation 42.5 RDW Coeff of Phi 13.5 Plt Count 295 MPV 9.6 Immature Gran % (Auto) 0.200 Neut % (Auto) 52.8 Lymph % (Auto) 33.1 Levy % (Auto) 5.9 Eos % (Auto) 7.1 H Baso % (Auto) 0.9 Absolute Neuts (auto) 4.5 Absolute Lymphs (auto) 2.84 Nucleated RBC % 0 Sodium 139 Potassium 3.9 Chloride 106 Carbon Dioxide 21.0 Anion Gap 12 BUN 9 Creatinine 0.68 L Estim Creat Clear Calc 143.34 Est GFR (MDRD) Non-Af 122 BUN/Creatinine Ratio 13.7 Glucose 85 Calcium 9.3 Total Bilirubin 0.30 AST 15 ALT 11 Alkaline Phosphatase 47 Total Protein 7.0 Albumin 4.1 Globulin 2.9 Albumin/Globulin Ratio 1.4 Lipase 31 Serum , Qual NEGATIVE Urine Color Yellow Urine Clarity Clear Urine pH 5.0 Ur Specific Bradley 1.020 Urine Protein 30 H Urine Glucose (UA) Normal Urine Ketones Negative Urine Occult Blood Negative Urine Nitrite Negative Urine Bilirubin Negative Urine Urobilinogen 1 H Ur Leukocyte Esterase 100 H Urine RBC 0-5 SEEN Urine WBC 0-5 SEEN Ur Squamous Epith Cells 10-25 SEEN Urine Bacteria RARE Urine Mucus 0 SEEN Radiography Diagnostic Testing: Clinical Impression(s) from Imaging Studies Abdomen/Pelvis CT 09/04/25 21:49 IMPRESSION: 1. Right ovarian cyst measuring 2.5 cm. 2. Large amount of stool within the colon. Reading Location: [facility] Rhythm Strip Rhythm Strip: Sinus Rhythm Rate: 84 Ectopy: None EKG Initial EKG: Attestation: I personally reviewed and interpreted this EKG as follows: Interpretation: Sinus Rhythm and No Acute Injury Pattern Comments: Normal sinus rhythm rate 84 no acute signs of NH or ischemia. No old EKG available for comparison. Discharge Plan Triage Chief Complaint: Abd Pain ED Provider: Jose Blair Dx/Rx/DC Orders Clinical Impression: Abdominal pain, Constipation, Cyst of right ovary Instructions: Abdominal Pain, ED Constipation (Adult), ED Ovarian Cyst Prescriptions: No Action albuterol sulfate [Ventolin HFA] 1 INHALER inhaler 1 puff inhalation Q4H PRN PRN (Reason: Wheezing) sertraline 100 MG tablet 100 mg PO DAILY ferrous sulfate 325 MG tablet 325 mg PO DAILY Patient Comments: Take 1 tablet by mouth twice daily with meals. topiramate 50 MG tablet 50 mg PO BID sulfacetamide sodium 10 % drops 2 drp EACH EYE Q4H PRN Patient Comments: APPLY 2 (TWO) DROPS IN BOTH EYES EVERY 4 HOURS FOR 7 DAYS ondansetron [ondansetron] 4 mg tablet,disintegrating 4 mg PO Q8H PRN PRN (Reason: Nausea) Qty: 10 0RF tizanidine [Zanaflex] 4 mg capsule 4 mg PO Q8H PRN (Reason: muscle spasticity) Qty: 14 0RF naproxen [Naprosyn] 500 mg tablet 500 mg PO BID PRN (Reason: pain) Qty: 20 0RF folic acid 1 mg tablet 1 mg PO DAILY Patient Comments: Take 1 tablet by mouth once daily. albuterol sulfate [Ventolin HFA] 90 mcg/actuation HFA aerosol inhaler 1 - 2 puff inhalation Q4H PRN PRN (Reason: Wheezing) Qty: 1 2RF ipratropium-albuterol 0.5 mg-3 mg(2.5 mg base)/3 mL solution for nebulization 3 ml inhalation Q6H PRN (Reason: shortness of breath or wheezing) Qty: 180 1RF promethazine-codeine 6.25-10 mg/5 mL syrup 5 ml PO 4X/DAY PRN PRN (Reason: cough) 7 Days Qty: 140 0RF (DME) nebulizer and compressor Device See Rx Instructions .Route Qty: 1 0RF Rx Instructions: As directed loperamide 2 mg capsule 2 mg PO Q6H PRN (Reason: loose stool) 4 Days Qty: 10 0RF Primary Care Provider: Galdino Nam Referrals: Deborah Valverde DO [Med Staff - Active Staff, Obstetrics-Gynecology (OBGYN)] - 1-2 Weeks Galdino Nam MD [Primary Care Provider, Medical] - 3-5 Days if not improving Activity Restrictions/Additional Instructions: Your abdominal pain is most likely secondary to constipation. Use the GoLytely in 8 to 10 ounce glass every 30 minutes to an hour to give a bowel movement start tomorrow morning. Usually will take several hours. He will get some crampy abdominal pain from the GoLytely. Plenty of fluids, fruits, vegetables fiber prune juice as needed. You also have a right ovarian cyst that is not that big is 2.5 cm. You can follow-up with [facility] [facility] about that. Motrin Tylenol for pain. Print Language: Greek Disposition Disposition: Home, Self Care
[2025-09-04] MEDS: 0.9% Normal Saline (1000mL) 1,000 ML 999 ML IV (21:54)
[2025-09-04 22:11] LABS: Hematocrit 37.5 % (37-47); Hemoglobin 13.1 g/dL (12.0-15.0); Immature Granulocytes Count 0.020 X10^3/uL (0.0-0.0); Mean Corp Hgb Conc 34.9 g/dL (32-36); Mean Corpuscular Volume 85.4 fL (81-99); Mean Platelet Vol. 9.6 fl (6.2-12.0); NRBC Flagged by Analyzer 0 % (0-5); Platelet Count 295 K/mm3 (150-450); RBC Distribution Width CV 13.5 % (11.6-14.6); RBC Distribution Width SD 42.5 fl (35.1-43.9); Red Blood Count 4.39 M/mm3 (4.2-5.4); White Blood Count 8.6 K/mm3 (4.4-11.0)
[2025-09-04 22:24] LABS: Internal QC Validated? YES +Cl - CLEAR BKGD; Pregnancy, Serum, hCG Quali. NEGATIVE Negative; Record Kit Lot#, Serum Preg. 0000980607
[2025-09-04] MEDS: Ketorolac 30 MG/ML Syringe IV (22:31)
[2025-09-04 22:34] LABS: AST(SGOT) 15 U/L (<=31); Alanine Aminotransfer ALT/SGPT 11 U/L (<=34); Albumin, Serum 4.1 g/dL (3.5-5.0); Alkaline Phosphatase 47 U/L (35-104); Anion Gap 12 (5-15); BUN 9 mg/dL (4-19); BUN/Creat Ratio 13.7 RATIO (10-20); Calcium,Total 9.3 mg/dL (7.6-11.0); Carbon Dioxide 21.0 mmol/L (21.0-32.0); Chloride 106 mmol/L (98-108); Estimated Creatinine Clearance 143.34 ml/min (50-250); Globulin 2.9 g/dL (2.2-4.2); Glucose 85 mg/dL (70-99); Lipase 31 U/L (13-75); Potassium 3.9 mmol/L (3.3-5.1)
[2025-09-04 22:45] VITALS: BP 139/88; PULSE 82; RESP 16; O2SAT 97
[2025-09-04 23:07] LABS: Mucous, Urine 0 SEEN /hpf (<or=2+)
[2025-09-04 23:14] LABS: Color, Urine Yellow (Yellow); Glucose, Dipstick Normal (Normal); Ketone-Dipstick Negative (Negative); Leukocyte Esterase-Dipstick 100 /ul (Negative); Nitrite-Dipstick Negative (Negative); Occult Blood-Urine Negative /ul (Negative); Protein-Dipstick 30 mg/dl (Negative); Specific Gravity, Urine 1.020 (1.002-1.030); Urine Bilirubin Dipstick Negative (Negative)
[2025-09-04 23:33] LABS: Red Blood Cells-Urine 0-5 SEEN /hpf (0-5); Squamous Epithelial Cells - UA 10-25 SEEN /hpf (5-10)
[2025-09-05 00:05] VITALS: BP 95/61; PULSE 73; RESP 18; TEMP 36.6; O2SAT 97
[2025-09-05] MEDS: Electrolyte Solution/Peg's 4000 ML 2000 ML PO (00:05)
== END 2025-09-05 00:10 | disposition home or self-care (01) ==
PROVIDERS: Emergency Provider Emergency Medicine; PCP Family Medicine; Visit Provider Emergency Medicine
DX: R10.9 Unspecified abdominal pain (principal); N83.201 Unspecified ovarian cyst, right side; K59.00 Constipation, unspecified; F17.210 Nicotine dependence, cigarettes, uncomplicated; R19.7 Diarrhea, unspecified; Z90.49 Acquired absence of other specified parts of digestive tract; Z90.721 Acquired absence of ovaries, unilateral; F17.290 Nicotine dependence, other tobacco product, uncomplicated
CPT/HCPCS: 74177; 80053; 81001; 83690; 84703; 85025; 93005; 96361; 96374; 96375; 99284; Q9967; A4216; J2405

== ENCOUNTER 2025-09-10 00:46 | Emergency (ER) | payer MEDICARE, MEDICAID, SELFPAY ==
[2025-09-10 00:47] VITALS: BP 112/75; PULSE 78; RESP 18; TEMP 36.3; O2SAT 99; BMI 27.6
[2025-09-10 01:24] LABS: Hematocrit 38.0 % (37-47); Hemoglobin 12.8 g/dL (12.0-15.0); Immature Granulocytes Count 0.030 X10^3/uL (0.0-0.0); Mean Corp Hgb Conc 33.7 g/dL (32-36); Mean Corpuscular Volume 84.6 fL (81-99); Mean Platelet Vol. 9.3 fl (6.2-12.0); NRBC Flagged by Analyzer 0 % (0-5); Platelet Count 324 K/mm3 (150-450); RBC Distribution Width CV 13.2 % (11.6-14.6); RBC Distribution Width SD 41.1 fl (35.1-43.9); Red Blood Count 4.49 M/mm3 (4.2-5.4); White Blood Count 10.8 K/mm3 (4.4-11.0)
[2025-09-10] MEDS: 0.9% Normal Saline (1000mL) 1,000 ML 999 ML IV (01:34)
--- NOTE | 2025-09-10 01:44 | EX.ED.DYSGE1 ---
HPI History of Present Illness Chief Complaint: Abd Pain Informant: patient and family Narrative Narrative: Patient is a 30-year-old female with past medical history of anxiety depression and seizure disorder. She also states she has a history of dermoid cyst which required her to have her right ovary removed. She states she has been dealing with constant generalized abdominal pain for approximately 1 week. She states that she has had intermittent bouts of nausea and vomiting associated with her abdominal pain. She states there has been no associated fevers or dysuria. She denies any recent trauma. She is concerned that the pain could be related to return of her dermoid cyst or potentially infectious process and therefore comes in for evaluation. [facility] Medical History Anemia ADHD Dermoid cyst of right ovary Migraines Seizures Anxiety Depression HPV (human papilloma virus) infection IBS (irritable bowel syndrome) Home Medications ?Medication ?Instructions ?Recorded ?Last Taken ?Type albuterol sulfate 90 mcg/actuation 1 puff inhalation Q4H PRN PRN 07/02/17 Unknown History aerosol inhaler (Ventolin HFA) Wheezing ferrous sulfate 325 mg (65 mg 325 mg PO DAILY 10/18/19 Unknown History iron) tablet topiramate 50 mg tablet 50 mg PO BID 03/16/20 Unknown History ondansetron 4 mg disintegrating 4 mg PO Q8H PRN PRN Nausea #10 tabs 07/31/22 Unknown Rx tablet naproxen 500 mg tablet (Naprosyn) 500 mg PO BID PRN pain #20 tabs 09/24/22 Unknown Rx tizanidine 4 mg capsule (Zanaflex) 4 mg PO Q8H PRN muscle spasticity 09/24/22 Unknown Rx #14 caps folic acid 1 mg tablet 1 mg PO DAILY 10/17/22 Unknown History albuterol sulfate 90 mcg/actuation 1 - 2 puff inhalation Q4H PRN PRN 01/09/23 Unknown Rx aerosol inhaler (Ventolin HFA) Wheezing #1 device ipratropium 0.5 mg-albuterol 3 mg 3 ml inhalation Q6H PRN shortness 01/09/23 Unknown Rx (2.5 mg base)/3 mL nebulization of breath or wheezing #180 mL soln nebulizer and compressor #1 ea 01/09/23 Unknown Rx promethazine 6.25 mg-codeine 10 5 ml PO 4X/DAY PRN PRN cough 7 01/09/23 Unknown Rx mg/5 mL syrup days #140 mL loperamide 2 mg capsule 2 mg PO Q6H PRN loose stool 4 days 02/11/23 Unknown Rx #10 caps duloxetine 60 mg capsule,delayed 60 mg PO DAILY 09/10/25 Unknown History release fremanezumab-vfrm 225 mg/1.5 mL 225 mg subcut QMONTH 09/10/25 Unknown History subcutaneous auto-injector (Ajovy) gabapentin 400 mg capsule 400 mg PO QHS 09/10/25 Unknown History hydroxyzine HCl 25 mg tablet 25 - 50 mg PO QHS PRN PRN insomnia 09/10/25 Unknown History levetiracetam 1,000 mg tablet 1,000 mg PO BID 09/10/25 Unknown History polyethylene glycol 3350 17 17 g PO DAILY 30 days #510 grams 09/10/25 Unknown Rx gram/dose oral powder (Miralax) Allergy/AdvReac Type Severity Reaction Status Date / Time amoxicillin Allergy Anaphylaxis Verified 09/10/25 00:47 bee venom protein (honey bee) Allergy Swelling Verified 09/10/25 00:47 etonogestrel (From Nexplanon) Allergy Swelling Verified 09/10/25 00:47 lidocaine Allergy Anaphylaxis Verified 09/10/25 00:47 mepivacaine (From Carbocaine) Allergy Swelling Verified 09/10/25 00:47 mushroom Allergy Other Verified 09/10/25 00:47 procaine (From Novocain) Allergy Swelling Verified 09/10/25 00:47 adhesive tape AdvReac Rash Verified 09/10/25 00:47 morphine AdvReac Other Verified 09/10/25 00:56 Surgical History Hx of cholecystectomy Hx of laparoscopy Social History household members: friend(s) Smoking Status: Current every day smoker tobacco type: cigarettes and e-cigarettes alcohol intake: current alcohol intake frequency: other substance use type: does not use ROS ROS ED Constitutional Constitutional ED: Denies chills or fever(s) ENT ENT ED: Denies sore throat Cardiovascular Cardiovascular: Denies chest pain Respiratory/Chest Respiratory/Chest: Denies cough or dyspnea Gastrointestinal Gastrointestinal: Reports abdominal pain, nausea and vomiting; Denies diarrhea Genitourinary Genitourinary ED: Denies dysuria Musculoskeletal Musculoskeletal: Reports other Details: Positive right shoulder pain ; Denies myalgias Integumentary Denies rash Neurologic Neurologic: Denies headache(s) Hematologic/Lymphatic Hematologic/Lymphatic: Denies easy bleeding or easy bruising EXAM Physical Exam Const Vital Signs: 09/10/25 00:47 09/10/25 01:51 09/10/25 01:51 Temperature 97.4 F L Temperature Source Oral Pulse Rate 78 Respiratory Rate 18 16 Blood Pressure 112/75 Blood Pressure Mean 87 Pulse Ox 99 84 99 Oxygen Delivery Method Room Air Room Air Nasal Cannula Oxygen Flow Rate (L/min) 2 09/10/25 03:00 09/10/25 04:23 Temperature 98 F Temperature Source Pulse Rate 70 71 Respiratory Rate 16 14 Blood Pressure 97/63 104/61 Blood Pressure Mean 74 75 Pulse Ox 100 100 Oxygen Delivery Method Room Air Oxygen Flow Rate (L/min) Positive well nourished and well developed General Appearance ED: well developed; Negative for pallor HEENT HEENT Narrative: Normocephalic atraumatic Eyes PERRL and EOMs intact bilaterally General Eye ED: Negative for scleral icterus Neck supple Resp normal respiratory effort and clear to auscultation bilaterally Cardio regular rate and regular rhythm Rate: other Other Details: Heart is regular rate and rhythm without murmurs rubs or gallop Radial and carotid pulses are equal and symmetric GI non-distended and no masses GI Narrative: Abdomen is soft and nondistended with hypoactive bowel sounds. There is mild diffuse pain with palpation. No voluntary guarding or rigidity. No pulsatile mass. No peritoneal signs Auscultation: hypoactive bowel sounds Palpation: soft Extremity Extremity Narrative: There is mild generalized pain with palpation of the right shoulder. No obvious bony deformity or joint effusion or sulcus sign noted. No overlying erythema or warmth to suggest infection such as cellulitis or abscess and no abrasions or ecchymosis to suggest recent trauma. The right upper extremity is neurovascularly intact. No asymmetric edema or pitting edema to suggest upper extremity DVT. Compartments are soft and compressible going against compartment syndrome. Neuro oriented x3 and CN's II-XII intact bilaterally Sensorium / Orientation: alert Psych mental status grossly normal Skin no rashes or lesions noted and no wounds General Skin Exam: Negative for jaundice or pallor MDM MDM MDM Narrative Medical decision making narrative: Patient presented to the ER with stable vitals. She reported constant abdominal pain that was diffuse in nature for approximately 1 week. She was seen in the ER at that time and had a CT scan which showed a right ovarian cyst and constipation but was otherwise negative. Her diffuse pain could be related to constipation also concern for ileus versus obstruction versus intestinal abscess. Patient also could have worsening of her ovarian cyst. Secondary to this I did elect to repeat laboratory studies with a CT scan. Labs revealed no clinically significant findings to indicate a common bile duct stone acute pancreatitis or systemic infection. CT scan showed resolution of the right ovarian cyst and persistent left ovarian cyst without increased in size. There was also findings of constipation without bowel obstruction or ileus. She also complained of right shoulder pain without injury and therefore I performed an x-ray to ensure there is no sign of joint effusion or avascular necrosis or moth-eaten appearance to suggest osteomyelitis. X-ray revealed no acute finding. After 1 dose of pain medication the patient was pain-free and able to sleep. Therefore at this time his vitals are stable and overall workup is negative I do not feel the need for further intervention in the ER. As she has had persistent ovarian cyst I will order an outpatient transvaginal ultrasound to further assess these but based on their size on CT scan and the fact her pain is resolved I have low concern for torsion and without white count or fever I have low concern for tubo-ovarian abscess. Therefore patient is otherwise safe for discharge History & Record Review Discussion w/independent historian: Patient and Family Additional record(s) reviewed:: Prior ED visit and Prior labs Lab Data Attestation: I reviewed the patient's lab results. Labs: Laboratory Results - last 24 hr 09/10/25 01:19 WBC 10.8 RBC 4.49 Hgb 12.8 Hct 38.0 MCV 84.6 MCH 28.5 MCHC 33.7 RDW Std Deviation 41.1 RDW Coeff of Phi 13.2 Plt Count 324 MPV 9.3 Immature Gran % (Auto) 0.300 Neut % (Auto) 54.9 Lymph % (Auto) 31.0 [place] % (Auto) 7.4 Eos % (Auto) 5.6 H Baso % (Auto) 0.8 Absolute Neuts (auto) 5.9 Absolute Lymphs (auto) 3.34 Nucleated RBC % 0 Sodium 135 Potassium 4.2 Chloride 104 Carbon Dioxide 21.2 Anion Gap 11 BUN 16 Creatinine 0.55 L Estim Creat Clear Calc 165.88 Est GFR (MDRD) Non-Af 128 BUN/Creatinine Ratio 29.9 H Glucose 84 Calcium 9.3 Total Bilirubin 0.23 Direct Bilirubin 0.09 AST 12 ALT 6 Alkaline Phosphatase 45 Total Protein 6.5 Albumin 4.0 Globulin 2.5 Lipase 43 Serum , Qual NEGATIVE Radiography Diagnostic Testing: Clinical Impression(s) from Imaging Studies Abdomen/Pelvis CT 09/10/25 02:03 IMPRESSION: The previously described 2.5 cm right adnexal cyst is not identified on the current exam. Unchanged 2.8 cm left ovarian cyst. Prior cholecystectomy. Moderate amount of fecal residue in the large bowels. Fluid-filled small bowels, nonspecific finding. Reading Location: [facility] [address] Shoulder X-Ray 09/10/25 02:19 IMPRESSION: No evidence for acute abnormality. Reading Location: [facility] [address] Right shoulder x-ray as interpreted by the emergency medicine physician reveals no acute fracture dislocation or joint effusion Discharge Plan Triage Chief Complaint: Abd Pain ED Provider: Mukul Yusuf Dx/Rx/DC Orders Clinical Impression: Nonspecific abdominal pain, Ovarian cyst, Constipation Instructions: Abdominal Pain, ED Constipation (Adult), ED Ovarian Cyst Prescriptions: New polyethylene glycol 3350 [Miralax] 17 gram/dose powder 17 g PO DAILY 30 Days Qty: 510 0RF No Action albuterol sulfate [Ventolin HFA] 1 INHALER inhaler 1 puff inhalation Q4H PRN PRN (Reason: Wheezing) ferrous sulfate 325 MG tablet 325 mg PO DAILY Patient Comments: Take 1 tablet by mouth twice daily with meals. topiramate 50 MG tablet 50 mg PO BID ondansetron [ondansetron] 4 mg tablet,disintegrating 4 mg PO Q8H PRN PRN (Reason: Nausea) Qty: 10 0RF tizanidine [Zanaflex] 4 mg capsule 4 mg PO Q8H PRN (Reason: muscle spasticity) Qty: 14 0RF naproxen [Naprosyn] 500 mg tablet 500 mg PO BID PRN (Reason: pain) Qty: 20 0RF folic acid 1 mg tablet 1 mg PO DAILY Patient Comments: Take 1 tablet by mouth once daily. albuterol sulfate [Ventolin HFA] 90 mcg/actuation HFA aerosol inhaler 1 - 2 puff inhalation Q4H PRN PRN (Reason: Wheezing) Qty: 1 2RF ipratropium-albuterol 0.5 mg-3 mg(2.5 mg base)/3 mL solution for nebulization 3 ml inhalation Q6H PRN (Reason: shortness of breath or wheezing) Qty: 180 1RF promethazine-codeine 6.25-10 mg/5 mL syrup 5 ml PO 4X/DAY PRN PRN (Reason: cough) 7 Days Qty: 140 0RF (DME) nebulizer and compressor Device See Rx Instructions .Route Qty: 1 0RF Rx Instructions: As directed loperamide 2 mg capsule 2 mg PO Q6H PRN (Reason: loose stool) 4 Days Qty: 10 0RF gabapentin 400 mg capsule 400 mg PO QHS hydroxyzine HCl 25 mg tablet 25 - 50 mg PO QHS PRN PRN (Reason: insomnia) duloxetine 60 mg capsule,delayed release(DR/EC) 60 mg PO DAILY levetiracetam 1,000 mg tablet 1,000 mg PO BID Ajovy Autoinjector 225 mg/1.5 mL auto-injector 225 mg SUBCUT QMONTH Patient Comments: Inject 1.5 mL subcutaneously once every month. Do not shake. Other Ambulatory Orders: Transvaginal Non- (Routine) Facility: [facility] - Location: [facility] Ordered By: Dr. Mukul Yusuf Primary Care Provider: Galdino Nam Referrals: Galdino Nam MD [Primary Care Provider, Medical] Activity Restrictions/Additional Instructions: Your labs revealed no clinically significant finding. The CT scan showed a left sided ovarian cyst and constipation but otherwise no signs of infection or blockage. Please take the MiraLAX daily to stimulate bowel movements. Obtain the outpatient ultrasound to further assess your cystic structures. Return to the ER should you have any further concerns Print Language: Tristanian Disposition Disposition: Home, Self Care Discharge Date/Time: 09/10/25 04:32
[2025-09-10 01:47] LABS: Internal QC Validated? YES +Cl - CLEAR BKGD; Pregnancy, Serum, hCG Quali. NEGATIVE Negative; Record Kit Lot#, Serum Preg. 0000980607
[2025-09-10 01:51] VITALS: RESP 16; O2SAT 84; O2SAT 99
[2025-09-10 01:55] LABS: AST(SGOT) 12 U/L (<=31); Alanine Aminotransfer ALT/SGPT 6 U/L (<=34); Albumin, Serum 4.0 g/dL (3.5-5.0); Alkaline Phosphatase 45 U/L (35-104); Anion Gap 11 (5-15); BUN 16 mg/dL (4-19); BUN/Creat Ratio 29.9 RATIO (10-20); Bilirubin, Direct 0.09 mg/dL (0.00-0.30); Calcium,Total 9.3 mg/dL (7.6-11.0); Carbon Dioxide 21.2 mmol/L (21.0-32.0); Chloride 104 mmol/L (98-108); Estimated Creatinine Clearance 165.88 ml/min (50-250); Globulin 2.5 g/dL (2.2-4.2); Glucose 84 mg/dL (70-99); Lipase 43 U/L (13-75); Potassium 4.2 mmol/L (3.3-5.1)
--- NOTE | 2025-09-10 02:03 | CT_ITS ---
PROCEDURE: ABDOMEN/PELVIS W IV CONT ONLY 09/10/2025 REASON FOR EXAM: ABD PAIN TECHNIQUE: Procedure Code: [id number] Modality: CT Procedure: ABDOMEN/PELVIS W IV CONT ONLY Coronal and Sagittal reconstruction series were provided. CONTRAST: OMNIPAQUE 350 VOLUME: 100 mL One or more dose reduction techniques were used (e.g., Automated exposure control, adjustment of the mA and/or kV according to patient size, use of iterative reconstruction technique. RADIATION DOSE SUMMARY: CTDlvol: 15.03 mGy DLP: 843 mGycm COMPARISON: CT scan on 09/04/2025. FINDINGS: The previously described 2.5 cm right adnexal cyst is not identified on the current exam. Unchanged 2.8 cm left ovarian cyst. Prior cholecystectomy. Moderate amount of fecal residue in the large bowels. Fluid-filled small bowels, nonspecific finding. The visualized lung bases are unremarkable. Normal liver. Normal extrahepatic biliary system. Normal spleen. Normal pancreas. Normal bilateral adrenal glands. Normal size of the right kidney. There is no right renal mass. There are no right renal calculi. There is no right hydronephrosis. Normal visualized right ureter. Normal size of the left kidney. There is no left renal mass. There are no left renal calculi. There is no left hydronephrosis. Normal visualized left ureter. The appendix is visualized and appears normal. There is no demonstrated peritoneal fluid. Normal abdominal aorta. Normal inferior vena cava. Normal retroperitoneum. Normal urinary bladder. There is no pelvic mass lesion or lymphadenopathy. There is no pelvic fluid. Normal abdominal wall. Normal osseous structures. CT/Abdomen/Pelvis W IV Cont ONLY IMPRESSION: The previously described 2.5 cm right adnexal cyst is not identified on the cur rent exam. Unchanged 2.8 cm left ovarian cyst. Prior cholecystectomy. Moderate amount of fecal residue in the large bowels. Fluid-filled small bowels, nonspecific finding. Reading Location: [place] [address]
--- NOTE | 2025-09-10 02:19 | RAD_ITS ---
PROCEDURE: SHOULDER MIN 2 VIEWS 09/10/2025 REASON FOR EXAM: PAIN TECHNIQUE: Procedure Code: RADSH Modality: DX Procedure: SHOULDER MIN 2 VIEWS Laterality: Right COMPARISON: None. FINDINGS: Normal glenohumeral articulation. Normal acromioclavicular joint. Normal acromion. Normal humeral head and visualized proximal humerus. Normal visualized scapula. There is no demonstrated soft tissue abnormality. Normal visualized pulmonary apex. RAD/Shoulder min 2 Views IMPRESSION: No evidence for acute abnormality. Reading [facility] [address]
[2025-09-10 03:00] VITALS: BP 97/63; PULSE 70; RESP 16; O2SAT 100
[2025-09-10 04:23] VITALS: BP 104/61; PULSE 71; RESP 14; TEMP 36.6; O2SAT 100
== END 2025-09-10 04:32 | disposition home or self-care (01) ==
PROVIDERS: Emergency Provider Emergency Medicine; PCP Family Medicine; Visit Provider Emergency Medicine
DX: K59.00 Constipation, unspecified (principal); N83.202 Unspecified ovarian cyst, left side; M25.511 Pain in right shoulder; F17.210 Nicotine dependence, cigarettes, uncomplicated; Z90.721 Acquired absence of ovaries, unilateral; F17.290 Nicotine dependence, other tobacco product, uncomplicated
CPT/HCPCS: 73030; 74177; 80048; 80076; 83690; 84703; 85025; 96361; 96374; 96375; 99284; Q9967; A4216; J2405

== ENCOUNTER 2025-09-21 04:43 | Emergency (ER) | payer MEDICARE, MEDICAID, SELFPAY ==
[2025-09-21 04:45] VITALS: PULSE 103; RESP 16; TEMP 37.4; O2SAT 99; BMI 29.2
[2025-09-21 04:49] VITALS: BP 103/76
[2025-09-21 04:58] LABS: Hematocrit 40.4 % (37-47); Hemoglobin 13.6 g/dL (12.0-15.0); Immature Granulocytes Count 0.030 X10^3/uL (0.0-0.0); Mean Corp Hgb Conc 33.7 g/dL (32-36); Mean Corpuscular Volume 84.9 fL (81-99); Mean Platelet Vol. 9.5 fl (6.2-12.0); NRBC Flagged by Analyzer 0 % (0-5); Platelet Count 335 K/mm3 (150-450); RBC Distribution Width CV 13.1 % (11.6-14.6); RBC Distribution Width SD 40.6 fl (35.1-43.9); Red Blood Count 4.76 M/mm3 (4.2-5.4); White Blood Count 10.5 K/mm3 (4.4-11.0)
[2025-09-21] MEDS: Magnesium Citrate 300 ML 150 ML PO (05:11)
[2025-09-21 05:16] LABS: Lipase 53 U/L (13-75)
[2025-09-21 05:18] LABS: AST(SGOT) 14 U/L (<=31); Alanine Aminotransfer ALT/SGPT 10 U/L (<=34); Albumin, Serum 4.2 g/dL (3.5-5.0); Alkaline Phosphatase 53 U/L (35-104); Anion Gap 12 (5-15); BUN 9 mg/dL (4-19); BUN/Creat Ratio 13.3 RATIO (10-20); Calcium,Total 9.0 mg/dL (7.6-11.0); Carbon Dioxide 23.2 mmol/L (21.0-32.0); Chloride 103 mmol/L (98-108); Estimated Creatinine Clearance 131.85 ml/min (50-250); Globulin 2.8 g/dL (2.2-4.2); Glucose 115 mg/dL (70-99); Potassium 3.9 mmol/L (3.3-5.1)
--- NOTE | 2025-09-21 05:20 | RAD_ITS ---
PROCEDURE: ACUTE ABDOMEN INC CHEST 09/21/2025 REASON FOR EXAM: DIFFUSE ABD PAIN, NAUSEA TECHNIQUE: Procedure Code: RADABDCA Modality: DX Procedure: ACUTE ABDOMEN INC CHEST COMPARISON: Previous CT from 09/10/2020 FINDINGS: Hardware: None Heart: The heart size is normal. Lungs: The lungs are clear. Bowel gas: Bowel-gas pattern is unremarkable, retained stool noted in the colon Free air: None Calcifications: No suspicious calcifications Bones: The bones are unremarkable. Other: RAD/Acute Abdomen Inc Chest IMPRESSION: No acute pulmonary, abdominal, or pelvic process. Moderate retained stool Reading Location: [id number]
--- OUTSIDE RECORDS SUMMARY | 2025-09-21 05:36 | XMS RPT_ITS | CCD ---
Author Organization [facility] ion [facility] Care Team Providers Care Senior Merchandiser Name Role Phone Germán ROXI, Roger Roth Unavailable Unava ilable Lemus, Khdarlene Unavailable Unavailable Fred Murphy Unavailable Unavailable Maurice Kwon Unavailable Unav ailable Sophie Avalos Unavailable Unavailable Joaquin Colon Unavailable Unavailable Manny Daniel Unavailable Unavailable Sophie Avalos Unavailable Unavailable Unavailable DR JOAQUIN COLON DO Primary Care Physician [phone] Sophie Avalos MD Primary Care Provider Sophie Avalos MD Primary Care Provider Sophie Avalos MD Primary Care Provider Sophie Avalos MD Primary Care Provider ALI, NOAMAN S Admitting Unavailable ALI, NOAMAN S Attending Unavailable WENDY, NOAMAN S Referring Unavailable SOPHIE AVALOS Primary Care Unavailable WENDY, NOAMAN S Referring Unavailable SOPHIE AVALOS Primary Care Unavailable WENDY, NOAMAN S Attending Unavailable SOPHIE AVALOS Primary Care Unavailable SOPHIE AVALOS Referring Unavailable SOPHIE AVALOS Primary Care Unavailable CECILIA CRAIG Attending Unavailable Sophie Avalos MD Primary Care Provider Elba TEACHER CCLC.Di VILLEGAS Unavailable Tamela TEACHER C[facility].GROVE SUPERINTENDENT, Felipa A Unavailable Dr. Sophie Avalos MD Primary Care Provider Dr. Robles De La Torre DO Emergency Provider Robbie CHAND, Dr. Ahmadi Primary Care Physician Dr. Robles De La Torre DO Attending Physician [phone] Dr. Robles De La Torre DO Emergency Department Physic ede Johnnie CHAND, Dr. Garcia Emergency Department Physici an ROBBIE, SOPHIE Espinosa Primary Care Unavailable SUPPAN, FELIPA A Referring Unavailable ROBBIE, SOPHIE J Primary Care Unavailable SELF Referring Unavailable SUPPAN, FELIPA A Attending Unavailable SILVIA CHRISTENSEN Referring Unavailable ROBBIE, SOPHIE J Primary Care Unavailable SILVIA CHRISTENSEN Attending Unavailable ROBBIE, SOPHIE J Primary Care Unavailable DI ARREOLA Attending Unavailable ROBBIE, SOPHIE J Primary Care Unavailable HAAGEN, DI Attending Unavailable ROBBIE, SOPHIE J Primary Care Unavailable ROBBIE, SOPHIE J Primary Care Unavailable HADI DON Referring Unavailable HADI DON Referring Unavailable ROBBIE, SOPHIE J Primary Care Unavailable DI ARREOLA Attending Unavailable ROBBIE, SOPHIE J Primary Care Unavailable MARIA TERESA JOHN Attending Unavailable ROBBIE, SOPHIE J Primary Care Unavailable SUPPAN, FELIPA A Referring Unavailable ROBBIE, SOPHIE J Primary Care Unavailable FELIPA TORRES A Attending Unavailable Robbie, Sophie Primary Care Unavailable Robles De La Torre Attending Unavailable Jose Blair Attending Unavailable Robbie, Sophie Primary Care Unavailable Mukul Yusuf Attending Unavailable Betances, Sophie Primary Care Unavailable Allergies Allergy Classification Reported Allergen(s) Allergy Type Date of Onset Reaction(s) Facility Bee/Wasp/Ant Venom (5 sources) apis mellifera venom Substance Allergy KH-[facility]HZBO[facility] Work Phone: Lidocaine (5 sources) Lidocaine; Translations: [lidocaine] Drug Allergy CM-KHHEU[facility] Work Phone: Mepivacaine (5 sources) Mepivacaine; Translations: [Carbocaine HCl] Drug Allergy ES-UAYLR-Jgzf [facility] Work Phone: Mushrooms (5 sources) Mushroom (edible) Food Allergy MG-OBGYN[facility] Work Phone: Penicillins (antibiotic) (5 sources) Amoxicillin; Translations: [amoxicillin] Drug Allergy MG-ENXLH-[facility] Work Phone: (20 sources) Amoxicillin; Translations: [amoxicillin] Drug Allergy 12-01-19 18 Shortness of Breath YN-DELQI-[facility] Work Phone: (6 sources) apis mellifera venom Allergy to substance (finding) JB-VVJTW-Ymoc [facility] Work Phone: (20 sources) Lidocaine; Translations: [lidocaine] Drug Allergy 12-01-19 18 Swelling IZ-YUOEW-Ubtc [facility] Work Phone: (6 sources) Mepivacaine; Translations: [Carbocaine HCl] Drug Allergy GW-UIQHT-Zcqx [facility] Work Phone: (6 sources) Mushroom (edible) Allergy to substance (finding) HE-YWOEL-Ejuf [facility] Work Phone: (19 sources) Procaine; Translations: [Novocain SOLN] Drug Allergy 04-21-20 22 Unknown, Swelling TV-PZDDY-Euye [facility] Work Phone: (20 sources) Ethinyl Estradiol / Norethindrone; Translations: [ethinyl estradiol-norethi ndrone] Drug Allergy 06-29-20 22 Other: See Comments [facility] (1 source) Penicillin; Translations: [penicillin] Drug Allergy [facility] (20 sources) cultivated mushroom extract; Translations: [MUSHROOM] Drug Allergy 12-01-19 18 Anaphylaxis [facility] Work Phone: Comment on above: 'throat swells up an d closes' (20 sources) Etonogestrel; Translations: [ETONOGESTREL] Drug Allergy 12-01-19 18 Swelling [facility] Work Phone: (20 sources) Mepivacaine; Translations: [MEPIVACAINE HCL] Drug Allergy 08-27-20 18 Unknown [facility] (20 sources) Procaine; Translations: [PROCAINE HCL] Drug Allergy 08-27-20 Unknown [facility] (8 sources) Adhesive Tape; Translations: [adhesive tape] Propensity to adverse reactions 04-21-20 Rash [facility] (7 sources) Mepivacaine Drug Allergy 04-21-20 Swelling [facility] (20 sources) bee venom protein (honey bee); Translations: [BEE VENOM PROTEIN (HONEY BEE)] Allergy to substance 10-05-20 Swelling [facility] (20 sources) Adhesive Tape-Silicones; Translations: [ADHESIVE TAPE-SILICONES] Drug Intolerance 06-29-20 [facility] (2 sources) NORETHINDRONE AC-ETH ESTRADIOL; Translations: [NORETHINDRONE AC-ETH ESTRADIOL] Propensity to adverse reactions to drug (disorder) 06-29-20 [facility] Other [facility] (1 source) HYDROmorphone; Translations: [HYDROMORPHONE] Drug Allergy 09-11-20 [facility] Main [facility] (1 source) Etonogestrel Drug Allergy 09-10-20 [facility] (1 source) Mepivacaine Drug Allergy 09-10-20 [facility] (1 source) Morphine Drug Allergy 09-10-20 [facility] (1 source) Mushroom (edible) Drug allergy (disorder) 09-10-20 [facility] (1 source) Procaine Drug Allergy 09-10-20 [facility] (1 source) bee venom protein (honey bee) Drug allergy (disorder) 09-10-20 [facility] Repository Medications Current Medications Medication Drug Class(es) Dates Sig (Normalized) Sig (Original) acetaminophen 325 mg / HYDROcodone bitartrate 5 mg oral tablet (11 sources) Opioid Agonist Start: 09-25-2022 End: 09-30-2022 take 1 tablet by mouth every eight hours as needed for pain HYDROcodone-aceta minophen (NORCO) 5-325 mg per tablet Indications: Chronic right shoulder pain , Chronic neck pain Take 1 tablet by mouth every 8 hours as needed for pain for up to 5 days. 15 tablet 0 09/25/2022 09/30/2022 Active Start: 07-16-2021 End: 06-27-2022 take 1 tablet by mouth every six hours as needed HYDROcodone-acetaminophen (NORCO) 5-325 mg per tablet Take 1 tablet by mouth every 6 hours as needed. 07/16/2021 05/25/2022 Discontinued (Other) Start: 07-16-2021 take 1 tablet by misael th every six hours as needed Hydrocodone-Acetaminophen Active 1 TABLE T PO EVERY 6 HOURS NEEDED 10 April 21, 2022 1:46pm Comment on above: Take 1 tablet by misael th every 6 hours as needed. Take 1 tablet by misael th every 8 hours as needed for pain for up to 5 days. [id number] 200 actuat albuterol 0.09 mg/actuat metered dose inhaler (20 sources) beta2-Adrenergic Agonist Start: 05-01-2025 End: 06-26-2025 albuterol (PROVENTIL) 2.5 mg /3 mL (0.083 %) nebulizer solution 2.5 mg 3 times daily as needed over 5-15 minutes for wheezing and shortness of breath. 120 mL 1 06/26/2025 Active Start: 01-09-2023 take 1 puff(s) by in halation every four hours as needed Albuterol Sulfate (Ventolin Hfa) 90 mcg/actuation HFA aerosol inhaler Active 1 - 2 PUFF INHALATION EVERY 4 HOURS NEEDED January 09, 2023 12:00am Start: 09-04-2022 End: 06-26-2025 take 2 puff(s) by inhalation every four hours as needed albuterol HFA (VENTOLIN HFA) 90 mcg/actuation inhaler Inhale 2 puffs as instructed every 4 hours as needed. 6.7 g 1 06/26/2025 Active Start: 09-23-2021 End: 09-04-2022 albuterol (PROVENTIL) 2.5 mg /3 mL (0.083 %) nebulizer solution Indications: SOB (shortness of breath) , Mild intermittent asthma with acute exacerbation (HCC) Use 3 mL via nebulizer every 4 hours as needed for wheezing/shortness of breath. 120 mL 3 09/04/2022 Active Start: 01-16-2021 End: 06-29-2022 take 2 puff(s) by inhalation every four hours as needed albuterol HFA (VENTOLIN HFA) 90 mcg/actuation inhaler Inhale 2 Puffs as instructed every 4 hours as needed. 6.7 g 1 06/22/2021 06/29/2022 Discontinued Start: 12-23-2020 End: 05-01-2021 albuterol (PROVENTIL) 2.5 mg /3 mL (0.083 %) nebulizer solution Indications: Nicotine use disorder , SOB (shortness of breath) Use 3 mL via nebulizer every 4 hours as needed for Wheezing/Shortness of Breath. Use 2.5 mg via nebulizer. 50 Vial 3 12/23/2020 05/01/2021 Discontinued Start: 02-23-2019 take 2 puff(s) by in halation every six hours as needed for wheezing Ventolin HFA MDI (90 mcg/inh) inhalation aerosol 2 puff(s), Inhalation, q6h, PRN as needed for wheezing Start Date: 02/23/19 Status: Ordered Start: 06-28-2018 Albuterol Sulf ate (2.5 MG/3ML) 0.083% Inhalation Nebulization Solution Quantity: 75 Refills: 0 Ordered: 28-Jun-2018 DO Start : 28-Jun-2018 Active Start: 06-28-2018 ProAir HFA 108 (90 Base) MCG/ACT Inhalation Aerosol Solution Quantity: 8 Refills: 0 Ordered: 28-Jun-2018 DO Start : 28-Jun-2018 Active Start: 06-28-2018 ProAir HFA 108 (90 Base) MCG/ACT Inhalation Aerosol Solution Quantity: 8 Refills: 0 Start : 28-Jun-2018 Active Start: 07-02-2017 Albuterol Sulf ate (Ventolin Hfa (Sp)) 1 INHALER inhaler Active 1 PUFF INHALATION EVERY 4 HOURS NEEDED July 02, 2017 11:14pm Start: 07-02-2017 Start: 07-02-2017 Albuterol Sulf ate (Ventolin Hfa (Sp)) 1 INHALER inhaler Active 1 NMA INHALATION EVERY 4 HOURS NEEDED as needed for Wheezing July 02, 2017 12:00am Start: 07-02-2017 Albuterol Sulf ate (Ventolin Hfa (Sp)) 1 INHALER inhaler Active 1 PUFF INHALATION EVERY 4 HOURS NEEDED July 01, 2017 11:00pm Start: 07-02-2017 Albuterol Sulf ate (Ventolin Hfa (Sp)) 1 INHALER inhaler Active 1 PUFF INHALATION EVERY 4 HOURS NEEDED July 02, 2017 12:00am Comment on above: Inhale 2 Puffs as in structed every 4 hours as needed. Use 3 mL via nebuliz er every 4 hours as needed for wheezing/shortness of breath. albuterol 0.833 mg/ml / ipratropium bromide 0.167 mg/ml inhalation solution (4 sources) Anticholinergic, beta2-Adrenergic Agonist Start: 01-09-2023 take 1 mL by inhalation every six hours as needed for wheezing Start: 01-09-2023 take 1 mL by inhalat ion every six hours Ipratropium-Albuterol Active 3 ML INHALATION EVERY 6 HOURS January 09, 2023 12:00am Azithromycin 5 Day Dose Pack 250 mg oral tablet (1 source) Start: 10-08-2021 End: 10-12-2021 Azithromycin 5 Day Dose Pack 250 mg oral tablet Dose : 250 mg = 1 tab(s), Oral, qDay, X 4 day(s), # 4 tab(s), 0 Refill(s), 10/12/21 10:33:00 EST, Exacerbation of asthma Bronchitis, 95.5 Start Date: 10/08/21 Stop Date: 10/12/21 Status: Ordered benzonatate 100 mg oral capsule (5 sources) Non-narcotic Antitussive Start: 09-17-2022 End: 10-17-2022 take 1 capsule by mouth every eight hours as needed benzonatate (TESSALON PERLES) 100 mg capsule Take 1 capsule by mouth three times daily as needed for cough. 30 capsule 0 09/17/2022 10/17/2022 Active Start: 10-09-2021 take 200 mg by mouth three times daily Benzonatate Active 200 MG PO THREE TIMES A DAY October 09, 2021 11:51pm Comment on above: Take 1 capsule by mo [facility] three times daily as needed for cough. clindamycin 150 mg oral capsule (11 sources) Lincosamide Antibacterial Start: take 450 mg by mouth three times daily Clindamycin Hcl Active 450 MG PO THREE TIMES A DAY 63 June 19, 2022 12:00am Start: 11-16-2021 take 300 mg by mouth four times daily Clindamycin Hcl Active 300 MG PO 4 TIMES DAILY 80 November 16, 2021 5:44pm Start: 11-16-2021 End: 07-22-2022 clindamycin (CLEOCIN) 150 mg capsule Take by mouth. 0 11/16/2021 07/22/2022 Discontinued Start: 10-15-2020 End: 07-18-2021 take 1 capsule by mouth every six hours as needed clindamycin (CLEOCIN) 300 mg capsule Take 300 mg by mouth every 6 hours as needed. 10/15/2020 07/18/2021 Discontinued (Course of therapy completed) Comment on above: Take by mouth. codeine phosphate 2 mg/ml / promethazine hydrochloride 1.25 mg/ml oral solution (4 sources) Opioid Agonist, Phenothiazine Start: 01-09-2023 take 1 mL by mouth four times daily as needed for cough Start: 01-09-2023 take 1 mL by mouth f our times daily as needed Promethazine-Codeine Active 5 ML PO 4 TIMES DAILY NEEDED 140 7 January 09, 2023 1:06am doxycycline hyclate 100 mg oral capsule (4 sources) Tetracycline-class Drug Start: 08-08-2025 End: 08-15-2025 take 1 capsule by mouth twice daily doxycycline hyclate (VIBRAMYCIN) 100 mg capsule Take 1 capsule by mouth two times a day for 7 days. 14 capsule 08/08/2025 08/15/2025 Active DULoxetine 60 mg delayed release oral capsule (8 sources) Serotonin and Norepinephrine Reuptake Inhibitor Start: 07-31-2025 take 1 capsule by mouth once daily DULoxetine DR (CYMBALTA) 60 mg capsule Indications: Intractable chronic migraine without aura and without status migrainosus Take 1 capsule by mouth once daily. 90 capsule 1 07/31/2025 Active Start: 06-29-2025 End: 07-31-2025 take 1 capsule by mouth once daily DULoxetine DR (CYMBALTA) 30 mg capsule Indications: Current mild episode of major depressive disorder, unspecified whether recurrent Take 1 capsule by mouth once daily. 30 capsule 2 06/29/2025 07/31/2025 Discontinued ferrous sulfate 325 mg oral tablet (20 sources) Start: 10-18-2019 take 1 tablet by [facility] once daily Start: 06-16-2019 End: 05-01-2025 take 1 tablet by mouth twice daily at mealtime ferrous sulfate 325 mg (65 mg iron) tablet Indications: Anemia, unspecified type Take 1 tablet by mouth two times a day with meals. 180 tablet 1 05/01/2025 Active Comment on above: Take 1 tablet by misael twice daily with meals. folic acid 1 mg oral tablet (20 sources) Start: End: take 1 tablet by mouth once daily Comment on above: Take 1 tablet by misael once daily. 1.5 ml fremanezumab-vfrm 150 mg/ml auto-injector (6 sources) Start: inject 1.5 mL by subcutaneous injection every month fremanezumab-vfrm (AJOVY AUTOINJECTOR) 225 mg/1.5 mL auto-injector Indications: Intractable chronic migraine without aura and without status migrainosus Inject 1.5 mL subcutaneously once every month. Do not shake. 1.5 mL 11 07/31/2025 Active gabapentin 400 mg oral capsule (15 sources) Anti-epileptic Agent Start: End: take 1 capsule by mouth once daily at bedtime gabapentin (NEURONTIN) 400 mg capsule Take 1 capsule by mouth daily at bedtime for 180 days. 90 capsule 1 05/01/2025 10/28/2025 Active hydrOXYzine hydrochloride 25 mg oral tablet (16 sources) Antihistamine Start: take 25-50 mg by mouth every twenty-four hours as needed hydrOXYzine HCl (ATARAX) 25 mg tablet Take 1-2 tablets by mouth at bedtime as needed (for sleep). 60 tablet 1 06/25/2025 Active Start: 05-01-2025 End: 06-25-2025 take 10-20 mg by mouth every twenty-four hours as needed hydrOXYzine HCl (ATARAX) 10 mg tablet Take 1-2 tablets by mouth at bedtime as needed. 60 tablet 1 05/01/2025 06/25/2025 Discontinued Inulin-Sorbitol (FIBER SUPPLEMENT, INULIN,) 2 gram chew (1 source) Start: 01-19-2023 End: 02-18-2023 take 1 tablet by mouth twice daily Inulin-Sorbitol (FIBER SUPPLEMENT, INULIN,) 2 gram chew Take 1 tablet by mouth twice daily. 60 tablet 0 01/19/2023 02/18/2023 Active Comment on above: Take 1 tablet by misael twice daily. levETIRAcetam 1000 mg oral tablet (15 sources) Start: 05-01-2025 End: 06-26-2025 take 1 tablet by mouth twice daily levETIRAcetam (KEPPRA) 1,000 mg tablet Take 1 tablet by mouth two times a day. 60 tablet 1 06/26/2025 Active loperamide hydrochloride 2 mg oral capsule (2 sources) Opioid Agonist Start: 02-11-2023 take 1 capsule by mouth every six hours as needed meclizine hydrochloride 25 mg oral tablet (12 sources) Antiemetic Start: 01-26-2022 take 25 mg by mouth every eight hours as needed Meclizine Active 25 MG PO EVERY 8 HOURS NEEDED January 26, 2022 3:51pm Start: 01-26-2022 End: 05-25-2022 take 1 tablet by mouth every eight hours as needed meclizine (ANTIVERT) 25 mg tab Take 25 mg by mouth three times daily as needed for For Dizziness. 01/26/2022 05/25/2022 Discontinued Comment on above: Take 25 mg by mouth three times daily as needed for For Dizziness. meloxicam 15 mg oral tablet (1 source) Nonsteroidal Anti-inflammatory Drug Start: 06-09-20 End: 06-16-20 take 1 tablet by mouth once daily at mealtime meloxicam (MOBIC) 15 mg tablet Take 1 tablet by mouth once daily for 7 days. Take with food. 7 tablet 0 06/09/2022 06/16/2022 Active Comment on above: Take 1 tablet by [facility] once daily for 7 days. Take with food. Nebulizer And Compressor (2 sources) Start: 01-09-20 Nebulizer And Compressor Active 0 .Route 1 January 09, 2023 12:00am As directed Nebulizer And Compressor device (2 sources) Start: 01-09-20 Nebulizer And Compressor device Active 0 .Route 1 0 January 09, 2023 1:00am As directed ondansetron 4 mg disintegrating oral tablet (5 sources) Serotonin-3 Receptor Antagonist Start: 07-31-20 take 1 tablet by mouth every eight hours as needed for nausea predniSONE 50 mg oral tablet (2 sources) Start: 10-08-20 End: 10-13-20 predniSONE 50 mg oral tablet Dose : 50 mg = 1 tab(s), Oral, qDayM, # 5 tab(s), 0 Refill(s), Exacerbation of asthma Bronchitis Start Date: 10/08/21 Stop Date: 10/13/21 Status: Ordered Start: 06-17-2020 predniSONE 20 MG Oral Tablet Quantity: 10 Refills: 0 Ordered: 17-Jun-2020 DO Start : 17-Jun-2020 Complete salsalate 500 mg oral tablet (3 sources) Start: 08-14-2025 End: 08-29-2025 take 1 tablet by mouth three times daily as needed for pain salsalate (DISALCID) 500 mg tablet Indications: Foot pain, left , Acute left ankle pain Take 1 tablet by mouth three times a day as needed (pain) for up to 15 days. 45 tablet 08/14/2025 08/29/2025 Active spironolactone 25 mg oral tablet (11 sources) Aldosterone Antagonist Start: 07-25-2024 End: 06-25-2025 take 1 tablet by mouth once daily spironolactone (ALDACTONE) 25 mg tablet Take 1 tablet by mouth once daily. 90 tablet 1 06/25/2025 Active sulfacetamide sodium 100 mg/ml ophthalmic solution (9 sources) Sulfonamide Antibacterial Start: 06-19-2022 Start: 06-08-2022 End: 06-15-2022 take 2 drop(s) into the eye(s) every four hours sulfacetamide (BLEPH-10) 10 % ophthalmic solution Indications: Eyelid disorder Use 2 Drops in eyes every 4 hours for 7 days. 15 mL 06/08/2022 06/15/2022 Comment on above: Use 2 Drops in eyes every 4 hours for 7 days. sulfamethoxazole 800 mg / trimethoprim 160 mg oral tablet (2 sources) Dihydrofolate Reductase Inhibitor Antibacterial, Sulfonamide Antimicrobial Start: 2 End: 2 take 1 tablet by mouth twice daily sulfamethoxazo le-trimethopri m (BACTRIM DS) 800-160 mg per tablet Take 1 tablet by mouth twice daily for 7 days. 14 tablet 0 05/14/2022 05/21/2022 Active Start: 11-16-2021 take 1 tablet by misael th twice daily Sulfamethoxazole-Trimethoprim Active 1 T ABLET PO TWICE A DAY November 16, 2021 5:44pm Comment on above: Take 1 tablet by misael th twice daily for 7 days. tiZANidine 4 mg oral capsule (20 sources) Central alpha-2 Adrenergic Agonist Start: 09-24-2022 End: 07-31-2025 take 1 capsule by mouth every eight hours as needed tiZANidine HCl (ZANAFLEX) 4 mg capsule Take 1 capsule by mouth three times a day as needed. 60 capsule 07/31/2025 Active Start: 09-24-2022 take 1 capsule by mouth every eight hours as needed Comment on above: Take 4 mg by mouth. Take 4 mg by mouth t hree times daily as needed. Completed/Discontinued Medications Medication Drug Class(es) Dates Sig (Normalized) Sig (Original) Acetaminophen (6 sources) End: 05-01-2025 acetaminophen (TYLENOL ORAL) Take by mouth. 05/01/2025 Discontinued acetaminophen (T YLENOL ORAL) Take by mouth. Active acetaminophen (T YLENOL ORAL) Take by mouth. 0 Active Comment on above: Take by mouth. atogepant (QULIPTA) 60 mg tablet (5 sources) Start: 06-25-2025 End: 07-31-2025 take 1 tablet by mouth once daily atogepant (QULIPTA) 60 mg tablet Indications: Intractable migraine without status migrainosus, unspecified migraine type Take 1 tablet by mouth once daily. 30 tablet 2 06/25/2025 07/31/2025 Discontinued Start: 06-25-2025 take 1 tablet by misael th once daily atogepant (QULIPTA) 60 mg tablet Indications: Intractable migraine without status migrainosus, unspecified migraine type Take 1 tablet by mouth once daily. 30 tablet 2 06/25/2025 Active azithromycin 250 mg oral tablet (3 sources) Macrolide Antimicrobial Start: 09-04-2022 End: 09-09-2022 azithromycin (ZITHROMAX Z-MICHELINE) 250 mg tablet Indications: Bronchitis Take 2 tablets day one, then, 1 tablet daily until gone. 6 tablet 09/04/2022 09/09/2022 Comment on above: Take 2 tablets day o ne, then, 1 tablet daily until gone. brompheniramine maleate 0.4 mg/ml / dextromethorphan hydrobromide 2 mg/ml / pseudoephedrine hydrochloride 6 mg/ml oral solution (1 source) alpha-Adrenergic Agonist, Uncompetitive S-zuyquy-Q-aspartate Receptor Antagonist, Sigma-1 Agonist Start: 05-30-2020 Pseudoeph-Bromphen -DM 30-2-10 MG/5ML Oral Syrup Quantity: 120 Refills: 0 Ordered: 30-May-2020 DO Start : 30-May-2020 Complete codeine phosphate 2 mg/ml / guaiFENesin 20 mg/ml / pseudoephedrine hydrochloride 6 mg/ml oral solution (3 sources) alpha-Adrenergic Agonist, Opioid Agonist Start: 09-04-2022 End: 09-11-2022 take 2.5 mL by mouth four times daily as needed Pseudoephedrine-Co deine-GG (ROBITUSSIN DAC) 30-10-100 mg/5 mL solution Indications: Bronchitis Take 2.5 mL by mouth four times daily as needed for up to 7 days. 60 mL 09/04/2022 09/11/2022 Comment on above: Take 2.5 mL by mouth four times daily as needed for up to 7 days. 24 hr desvenlafaxine succinate 25 mg extended release oral tablet (4 sources) Serotonin and Norepinephrine Reuptake Inhibitor Start: 06-25-2025 End: 06-29-2025 take 1 tablet by mouth once daily, then take 2 tablets by mouth once daily desvenlafaxine ER (PRISTIQ) 25 mg 24 hr tablet Take one pill by mouth daily X 1 week; then increase to two pills daily. 60 tablet 1 06/25/2025 06/29/2025 Discontinued (Other) dextromethorphan hydrobromide 15 mg / guaiFENesin 400 mg / pseudoephedrine hydrochloride 60 mg oral tablet (5 sources) alpha-Adrenergic Agonist, Uncompetitive C-udryfb-O-aspartate Receptor Antagonist, Sigma-1 Agonist Start: 10-28-2022 End: 12-24-2022 take 1 tablet by mouth every six hours as needed pseudoephedrine-DM -guaiFENesin (CAPMIST DM) 60-15-400 mg tab Indications: Viral URI with cough Take 1 tablet by mouth every 6 hours as needed. 30 tablet 0 10/28/2022 12/24/2022 Discontinued Comment on above: Take 1 tablet by misael th every 6 hours as needed. dicyclomine hydrochloride 10 mg oral capsule (7 sources) Anticholinergic Start: 05-11-2019 take 1 capsule by mouth four times daily as needed Dicyclomine HCl - 10 MG Oral Capsule TAKE 1 CAPSULE BY MOUTH FOUR TIMES DAILY NEEDED. MAY REDUCE DOSAGE Quantity: 120 Refills: 0 Ordered: 30-Nov-2019 Maurice Albrecht Start : 11-May-2019 Active escitalopram 5 mg oral tablet (1 source) Serotonin Reuptake Inhibitor Start: 05-08-2024 End: 06-25-2025 take 2 tablets by mouth once daily escitalopram oxalate (LEXAPRO) 5 mg tablet Take 10 mg by mouth once daily. 05/08/2024 06/25/2025 Discontinued etodolac 400 mg oral tablet (10 sources) Nonsteroidal Anti-inflammatory Drug Start: 01-16-2021 End: 04-30-2022 take 1 tablet by mouth twice daily as needed etodolac (LODINE) 400 mg tablet Indications: Hand and foot pain, unspecified laterality , Prediabetes Take 1 tablet by mouth twice daily as needed. 60 tablet 1 01/16/2021 04/30/2022 Discontinued Comment on above: Take 1 tablet by misael th twice daily as needed. fluconazole 150 mg oral tablet (1 source) Azole Antifungal Start: 07-18-2021 End: 01-20-2022 take 1 tablet by mouth every other day fluconazole (DIFLUCAN) 150 mg tablet 1 tab by mouth every other day for 3 doses 3 tablet 1 07/18/2021 01/20/2022 Discontinued (Course of therapy completed) ibuprofen 200 mg oral tablet (20 sources) Nonsteroidal Anti-inflammatory Drug Start: 09-04-2022 End: 10-04-2022 take 4 tablets by mouth every six hours as needed ibuprofen (MOTRIN) 200 mg tablet Take 4 tablets by mouth every 6 hours as needed for pain or fever (specify). Rx by CUSTOMER ENGAGEMENT MANAGER pt reported ovary pain 60 tablet 09/04/2022 10/04/2022 Start: 04-21-2022 End: 05-01-2025 take 600 mg by mouth every six hours as needed Ibuprofen Active 600 MG PO EVERY 6 HOURS NEEDED April 21, 2022 1:46pm Start: 09-03-2021 take 1 tablet by misael th every eight hours as needed for pain Ibuprofen 600 MG Oral Tablet TAKE 1 TABLET BY MOUTH EVERY 8 HOURS NEEDED FOR PAIN Quantity: 30 Refills: 0 Ordered: 03-Sep-2021 DO Start : 03-Sep-2021 Active Start: 07-16-2021 take 800 mg by mouth every six hours Ibuprofen Active 800 MG PO EVERY 6 HOURS July 16, 2021 6:18am Start: 07-04-2019 take 1 tablet by misael th three times daily as needed Ibuprofen 800 MG Oral Tablet TAKE 1 TABLET 3 TIMES DAILY NEEDED. Quantity: 1 Refills: 0 Ordered: 30-May-2021 Fred Murphy MD Start : 30-May-2021 Active Comment on above: Take 800 mg by mouth every 6 hours as needed. Rx by CUSTOMER ENGAGEMENT MANAGER pt reported ovary pain Take 4 tablets by mo uth every 6 hours as needed for pain or fever (specify). Rx by CUSTOMER ENGAGEMENT MANAGER pt reported ovary pain Take 600 mg by mouth every 6 hours as needed. 2 ml ketorolac tromethamine 30 mg/ml injection (1 source) Nonsteroidal Anti-inflammatory Drug, Cyclooxygenase Inhibitor Start: 09-25-2022 End: 09-25-2022 keTORolac 60 mg injection (TORADOL) Start: 09-25-2022 End: 09-25-2022 keTORolac 60 mg injection (T ORADOL) 1 ml medroxyPROGESTERone acetate 150 mg/ml injection (20 sources) Progestin Start: 11-07-2021 End: 01-01-2023 medroxyPROGESTERone 150 mg injection (DEPO-PROVERA) Start: 11-06-2021 End: 05-01-2025 medroxyPROGESTERone (DEPO-NV OVERA) 150 mg/mL injection Indications: Encounter for prescription for depo-Provera Inject 1 mL intramuscularly every 12 weeks. 1 mL 4 07/22/2022 05/01/2025 Discontinued Start: 10-08-2020 End: 07-18-2021 take 1 tablet by mouth once daily medroxyPROGESTERone (PROVERA) 10 mg tablet Take 1 tablet by mouth once daily. 10 tablet 10/08/2020 07/18/2021 Discontinued (Discontinued by Patient) Comment on above: Inject 1 mL intramus cularly every 12 weeks. methylPREDNISolone (6 sources) Corticosteroid Start: 08-08-2025 End: 08-14-2025 methylPREDNISolone (MEDROL, MICHELINE,) 4 mg Dose-Pack Take as instructed per package. 21 tablet 08/08/2025 08/14/2025 Start: 08-08-2025 End: 08-14-2025 methylPREDNISolone (MEDROL, MICHELINE,) 4 mg Dose-Pack Take as instructed per package. 21 tablet 08/08/2025 08/14/2025 Active Start: 04-30-2022 End: 05-06-2022 methylPREDNISolone (MEDROL, MICHELINE,) 4 mg Dose-Pack Indications: Acute pain of right shoulder Follow dosing instructions, take with food. 1 Package 04/30/2022 05/06/2022 Start: 04-30-2022 End: 05-06-2022 methylPREDNISolone (MEDROL, MICHELINE,) 4 mg Dose-Pack Indications: Acute pain of right shoulder Follow dosing instructions, take with food. 1 Package 0 04/30/2022 05/06/2022 Active Comment on above: Follow dosing instru ctions, take with food. naproxen 500 mg oral tablet (20 sources) Nonsteroidal Anti-inflammatory Drug Start: 05-22-2024 End: 06-25-2025 Naproxen SR (EC-NAPROSYN) 500 mg EC tablet Take 500 mg by mouth. 05/22/2024 06/25/2025 Discontinued Start: 09-24-2022 End: 08-14-2025 take 1 tablet by mouth twice daily as needed for pain Start: 05-26-2021 take 1 tablet by misael th every twelve hours as needed Naproxen 500 MG Oral Tablet Delayed Release TAKE 1 TABLET EVERY 12 HOURS NEEDED. Quantity: 30 Refills: 0 Ordered: 26-May-2021 Fred Murphy MD Start : 26-May-2021 Active Start: 11-18-2018 naproxen 500 m g oral tablet Dose : 500 mg = 1 tab(s), Oral, BID Start Date: 02/23/19 Status: Ordered End: 05-01-2025 naproxen (NAPROSYN) 250 mg t ablet Take 250 mg by mouth as needed. 05/01/2025 Discontinued Comment on above: Take 250 mg by mouth as needed. 24 hr nicotine 0.583 mg/hr transdermal system (3 sources) Cholinergic Nicotinic Agonist Start: 08-28-20 End: 07-18-20 apply 1 dose transdermal route every twenty-four hours nicotine (NICODERM CQ) 14 mg/24 hr Apply 1 Patch as directed every 24 hours. 30 Patch 08/28/2020 07/18/2021 Discontinued (Discontinued by Patient) omeprazole 40 mg delayed release oral capsule (14 sources) Proton Pump Inhibitor Start: 05-11-20 End: 01-20-20 take 1 capsule by mouth once daily omeprazole (PRILOSEC) 40 mg capsule Take 1 capsule by mouth once daily. 90 capsule 1 08/02/2020 02/11/2021 Discontinued oxyCODONE hydrochloride 5 mg oral tablet (6 sources) Opioid Agonist Start: 12-31-19 End: 05-01-20 take 1 tablet by mouth every six hours as needed for pain oxyCODONE IR (ROXICODONE) 5 mg immediate release tablet Indications: Post-op pain Take 1 tablet by mouth every 6 hours as needed for pain. 10 tablet 12/31/2022 2:09 PM EST 12/31/2022 05/01/2025 Discontinued Comment on above: Take 1 tablet by misael th every 6 hours as needed for pain. pantoprazole 40 mg delayed release oral tablet (6 sources) Proton Pump Inhibitor Start: 06-29-20 End: 07-29-20 take 1 tablet by mouth once daily pantoprazole DR (PROTONIX) 40 mg tablet Take 1 tablet by mouth once daily. 30 tablet 1 06/29/2022 07/22/2022 Discontinued Comment on above: Take 1 tablet by misael th once daily. sertraline 100 mg oral tablet (20 sources) Serotonin Reuptake Inhibitor Start: 11-04-20 End: 06-25-20 take 1.5 tablets by mouth once daily sertraline (ZOLOFT) 100 mg tablet Indications: Depression, unspecified depression type Take 1.5 tablets by mouth once daily. 135 tablet 1 05/01/2025 06/25/2025 Discontinued Start: 06-16-2019 Sertraline HCl - 100 MG Oral Tablet Quantity: 30 Refills: 0 Ordered: 16-Jun-2019 DO Start : 16-Jun-2019 Active Start: 01-19-2019 sertraline 50 mg oral tablet Dose : 100 mg = 2 tab(s), Oral, qDay Start Date: 02/23/19 Status: Ordered Start: 10-18-2017 take 1 tablet by misael th once daily Sertraline HCl - 25 MG Oral Tablet Quantity: 0 Refills: 0 Ordered: 11-May-2019 DO Active Sertraline HCl - 25 MG Oral Tablet Refills: 0 Active Comment on above: Take 1.5 tablets by mouth once daily. sucralfate 1000 mg oral tablet (4 sources) Aluminum Complex Start: 0 End: 1 take 1 tablet by mouth at bedtime sucralfate (CARAFATE) 1 gram tablet Indications: Gastroduodenitis Take 1 tablet by mouth before meals and at bedtime. Dissolve in a 30cc water, stir and drink. 120 tablet 2 08/26/2020 10/10/2021 Discontinued (Course of therapy completed) Start: 08-26-2020 Sucralfate 1 G M Oral Tablet Quantity: 120 Refills: 0 Ordered: 26-Aug-2020 DO Start : 26-Aug-2020 Complete SUMAtriptan 100 mg oral tablet (11 sources) Serotonin-1b and Serotonin-1d Receptor Agonist Start: 06-28-2018 SUMAtriptan Succinat e 100 MG Oral Tablet Quantity: 9 Refills: 0 Ordered: 28-Jun-2018 DO Start : 28-Jun-2018 Active Start: 06-28-2018 SUMAtriptan Rodríguez ccinate 100 MG Oral Tablet Quantity: 9 Refills: 0 Start : 28-Jun-2018 Active topiramate 50 mg oral tablet (20 sources) Start: 05-21-2021 Topiramate 50 MG Oral Tablet Quantity: 60 Refills: 0 Ordered: 21-May-2021 DO Start : 21-May-2021 Complete Start: 03-16-2020 End: 10-28-2025 take 1 tablet by mouth twice daily Comment on above: Take 1 tablet by misael th twice daily. 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] 06-13-2019 Chronic Allergic reactions (2 sources) Allergy to penicillin; Translations: [Allergy status to penicillin] Onset: 5 08-08-2025 Episodic Anxiety disorders (20 sources) Posttraumatic stress disorder; Translations: [Post-traumatic stress disorder, unspecified] Onset: 8 08-30-2018 Chronic Asthma (20 sources) Exacerbation of asthma; Translations: [Unspecified asthma with (acute) exacerbation] Onset: 0 Chronic Chronic obstructive pulmonary disease and bronchiectasis (10 sources) Bronchitis; Translations: [Bronchitis, not specified as acute or chronic] Onset: 1 Episodic Contraceptive and procreative management (20 sources) Patient encounter status; Translations: [Surveillance of other contraceptive method] Resolved: 1 Episodic Deficiency and other anemia (1 source) Anemia; Translations: [Anemia, unspecified] 05-01-2025 Episodic Diabetes mellitus without complication (7 sources) Diabetic on diet only; Translations: [Type 2 diabetes mellitus without complications] 12-17-2019 Chronic Disorders usually diagnosed in infancy, childhood, or adolescence (1 source) Attention deficit hyperactivity disorder, predominantly inattentive type; Translations: [Other specified behavioral and emotional disorders with onset usually occurring in childhood and adolescence] 06-25-2025 Chronic Epilepsy; convulsions (20 sources) Seizure disorder; Translations: [Epilepsy, unspecified, intractable, without status epilepticus] Onset: 8 Resolved: 8 03-17-2020 Chronic Esophageal disorders (20 sources) Gastroesophageal reflux disease; Translations: [Esophageal reflux] Onset: 0 07-22-2020 Chronic Fluid and electrolyte disorders (3 sources) Mild dehydration; Translations: [Dehydration] 02-06-2023 Episodic Genitourinary symptoms and ill-defined conditions (11 sources) Urinary incontinence; Translations: [Urinary incontinence, unspecified] Chronic Headache; including migraine (20 sources) Migraine; Translations: [Migraine, unspecified, not intractable, without status migrainosus] Onset: 0 07-22-2020 Chronic Headache; including migraine (2 sources) Acute headache; Translations: [Acute headache] 02-19-2023 Episodic Immunizations and screening for infectious disease (1 source) Suspected disease caused by 2019-nCoV; Translations: [Suspected COVID-19 virus infection] 12-09-2021 Episodic Intracranial injury (7 sources) Concussion with no loss of consciousness; Translations: [Concussion without loss of consciousness, initial encounter] 02-03-2022 Episodic Joint disorders and dislocations; trauma-related (20 sources) Patellofemoral syndrome of bilateral knees; Translations: [Patellofemoral disorders, right knee] Onset: 0 09-16-2020 Chronic Menstrual disorders (20 sources) Dysmenorrhea; Translations: [Irregular periods] 09-17-2020 Chronic Miscellaneous mental health disorders (20 sources) Dissociative convulsions; Translations: [Conversion disorder with seizures or convulsions] Onset: 8 08-30-2018 Chronic Mood disorders (20 sources) Depressive disorder; Translations: [Depression] Onset: 8 02-22-2020 Chronic Mood disorders (1 source) Mood disorders; Translations: [Depression, unspecified depression type] Onset: 0 Nausea and vomiting (6 sources) Nausea; Translations: [Nausea] Episodic Nonmalignant breast conditions (1 source) Pain of breast; Translations: [Mastodynia] Episodic Nonspecific chest pain (20 sources) Chest wall pain; Translations: [Other chest pain] 08-26-2017 Episodic Open wounds of extremities (7 sources) Dog bite of forearm; Translations: [Open bite of right forearm, initial encounter] 11-24-2021 Episodic Other aftercare (11 sources) Surgical follow-up; Translations: [Follow-up examination, following surgery, unspecified] Episodic Other aftercare (6 sources) Follow-up status; Translations: [Unspecified follow-up examination] Episodic Other and unspecified benign neoplasm (7 sources) Mature cystic teratoma of right ovary; Translations: [Benign neoplasm of right ovary] 09-20-2021 Episodic Other and unspecified benign neoplasm (2 sources) Benign neoplasm of mouth region; Translations: [Benign neoplasm of unspecified part of mouth] 05-01-2025 Episodic Other circulatory disease (1 source) Respiratory symptom; Translations: [Other specified symptoms and signs involving the circulatory and respiratory systems] Episodic Other connective tissue disease (2 sources) Paraparesis; Translations: [Other symptoms and signs involving the musculoskeletal system] Episodic Other connective tissue disease (1 source) Pain in right arm; Translations: [Pain in right arm] Episodic Other connective tissue disease (1 source) Pain in right lower limb; Translations: [Pain in right leg] Episodic Other connective tissue disease (1 source) Other symptoms and signs involving the musculoskeletal system; Translations: [Other musculoskeletal symptoms referable to limbs] 07-21-2022 Episodic Other connective tissue disease (1 source) Foot pain; Translations: [Pain in left foot] 08-10-2025 Episodic Other connective tissue disease (6 sources) Pain in left foot; Translations: [Pain in left foot] 08-14-2025 Episodic Other connective tissue disease (1 source) Pain in left foot; Translations: [Foot pain, left] Onset: 5 Episodic Other disorders of stomach and duodenum (11 sources) Indigestion; Translations: [Dyspepsia and other specified disorders of function of stomach] Episodic Other ear and sense organ disorders (20 sources) Hearing difficulty; Translations: [Unspecified hearing loss, bilateral] Onset: 8 08-30-2018 Chronic Other ear and sense organ disorders (1 source) Otalgia, right ear; Translations: [Otalgia, unspecified] Episodic Other endocrine disorders (1 source) Hypoglycemia; Translations: [Hypoglycemia, unspecified] 05-01-2025 Chronic Other endocrine disorders (1 source) Hypoglycemia, unspecified; Translations: [Hypoglycemia] Onset: 5 Chronic Other eye disorders (1 source) Disorder of eyelid; Translations: [Unspecified disorder of eyelid] Episodic Other female genital disorders (11 sources) Abnormal uterine bleeding; Translations: [Unspecified disorders of menstruation and other abnormal bleeding from female genital tract] Chronic Other female genital disorders (7 sources) Abnormal vaginal bleeding; Translations: [Abnormal uterine and vaginal bleeding, unspecified] 09-28-2021 Chronic Other female genital disorders (11 sources) Dysplasia of cervix; Translations: [Dysplasia of cervix, unspecified] Episodic Other female genital disorders (8 sources) Pruritus of vagina; Translations: [Pruritus of genital organs] Episodic Other female genital disorders (4 sources) Mass of right ovary; Translations: [Other noninflammatory disorders of ovary, fallopian tube, and broad ligament] Episodic Other female genital disorders (7 sources) Mass of uterine adnexa; Translations: [Other specified conditions associated with female genital organs and menstrual cycle] 05-20-2021 Episodic Other female genital disorders (1 source) Pain in female perineum; Translations: [Perineal pain in female] 07-05-2020 Episodic Other gastrointestinal disorders (11 sources) Irritable bowel syndrome; Translations: [Irritable bowel syndrome] Chronic Other gastrointestinal disorders (11 sources) Incontinence of feces; Translations: [Full incontinence of feces] Episodic Other gastrointestinal disorders (11 sources) Abdominal bloating; Translations: [Flatulence, eructation, and gas pain] Episodic Other gastrointestinal disorders (12 sources) Loose stool; Translations: [Abnormal feces] Episodic Other gastrointestinal disorders (20 sources) Diarrhea; Translations: [Diarrhea, unspecified] Episodic Other gastrointestinal disorders (1 source) Constipation; Translations: [Constipation, unspecified] 09-04-2025 Episodic Other injuries and conditions due to external causes (2 sources) Injury of finger of left hand; Translations: [Unspecified injury of left wrist, hand and finger(s), sequela] 05-01-2025 Episodic Other lower respiratory disease (11 sources) H/O: asthma; Translations: [Personal history of other diseases of respiratory system] Episodic Other lower respiratory disease (8 sources) Dyspnea; Translations: [Dyspnea, unspecified] 10-14-2021 Episodic Other lower respiratory disease (2 sources) Cough; Translations: [Acute cough] 08-08-2025 Episodic Other nervous system disorders (4 sources) Paresthesia; Translations: [Paresthesia of skin] Episodic Other nervous system disorders (2 sources) Numbness of upper limb; Translations: [Anesthesia of skin] Episodic Other nervous system disorders (3 sources) Numbness of lower limb ; Translations: [Anesthesia of skin] Episodic Other nervous system disorders (1 source) Other acute postprocedural pain; Translations: [Post-op pain] Onset: 3 Episodic Other non-traumatic joint disorders (20 sources) Ankle pain; Translations: [Pain in right ankle and joints of right foot] Onset: 0 09-16-2020 Episodic Other non-traumatic joint disorders (7 sources) Shoulder joint pain; Translations: [Pain in right shoulder] 09-28-2021 Episodic Other non-traumatic joint disorders (2 sources) Pain in elbow; Translations: [Pain in right elbow] Episodic Other non-traumatic joint disorders (1 source) Chronic pain of right upper limb; Translations: [Pain in right shoulder] Episodic Other non-traumatic joint disorders (5 sources) Acute ankle pain; Translations: [Pain in left ankle and joints of left foot] 08-14-2025 Episodic Other non-traumatic joint disorders (2 sources) Pain in left ankle and joints of left foot; Translations: [Acute left ankle pain] Onset: 5 Episodic Other screening for suspected conditions (not mental disorders or infectious disease) (20 sources) Urine test negative; Translations: [ test negative] Resolved: 1 Episodic Other skin disorders (7 sources) Acute folliculitis; Translations: [Follicular disorder, unspecified] 10-16-2020 Episodic Other upper respiratory disease (2 sources) Bleeding from nose; Translations: [Epistaxis] 02-19-2023 Episodic Other upper respiratory infections (5 sources) Viral upper respiratory tract infection; Translations: [Acute upper respiratory infection, unspecified] Onset: 5 Episodic Otitis media and related conditions (2 sources) Acute left otitis media; Translations: [Otitis media, unspecified, left ear] Onset: 5 08-08-2025 Episodic Ovarian cyst (1 source) Cyst of right ovary; Translations: [Unspecified ovarian cyst, right side] 09-04-2025 Episodic Residual codes; unclassified (8 sources) History of clinical finding in subject; Translations: [Personal history of other disorders of nervous system and sense organs] Episodic Residual codes; unclassified (1 source) Tobacco user; Translations: [Tobacco use] 08-08-2025 Episodic Residual codes; unclassified (1 source) Tobacco use; Translations: [Tobacco abuse] Onset: 5 Episodic Screening and history of mental health and substance abuse codes (20 sources) H/O: psychiatric disorder; Translations: [H/O: anxiety state] Episodic Skin and subcutaneous tissue infections (13 sources) Abscess of skin and/or subcutaneous tissue; Translations: [Cutaneous abscess, unspecified] 10-16-2020 Episodic Spondylosis; intervertebral disc disorders; other back problems (2 sources) Pain in the coccyx; Translations: [Sacrococcygeal disorders, not elsewhere classified] Episodic Sprains and strains (20 sources) Injury of shoulder region; Translations: [Strain of unspecified muscle, fascia and tendon at shoulder and upper arm level, unspecified arm, initial encounter] Onset: 5 04-21-2022 Episodic Substance-related disorders (20 sources) Nicotine dependence; Translations: [Nicotine dependence, unspecified, uncomplicated] Onset: 8 08-30-2018 Chronic Unclassified (1 source) Unknown / UNK(Unknown) Onset: 8 Unclassified (10 sources) Patient encounter status; Translations: [Encounter for annual routine gynecological examination] 08-01-2025 Unclassified (1 source) Post Op Follow Up Onset: 3 Unclassified (1 source) Acute cough; Translations: [Acute cough] Onset: 5 Viral infection (5 sources) Viral disease; Translations: [Viral infection, unspecified] 08-08-2022 Episodic Past or Other Problems Problem Classification Problem Date Documented Da te Episodic/Chronic Biliary tract disease (20 sources) Biliary colic; Translations: [Calculus of bile duct without cholangitis or cholecystitis without obstruction] Onset: 12-24-2022 Episodic Cancer of cervix (20 sources) Cervicovaginal cytology: Low grade squamous intraepithelial lesion; Translations: [Papanicolaou smear of cervix with low grade squamous intraepithelial lesion (LGSIL)] Onset: 05-09-2019 10-16-2020 Episodic Deficiency and other anemia (20 sources) Iron deficiency anemia; Translations: [Iron deficiency anemia, unspecified] Onset: 07-22-2020 07-22-2020 Episodic Deficiency and other anemia (1 source) Iron deficiency anemia, unspecified; Translations: [Iron deficiency anemia, unspecified iron deficiency anemia type] Onset: 07-22-2020 Episodic Deficiency and other anemia (1 source) Anemia, unspecified; Translations: [Anemia, unspecified type] Onset: 05-01-2025 Episodic Diabetes mellitus without complication (7 sources) Prediabetes; Translations: [Prediabetes] Onset: 05-01-2025 07-05-2018 Episodic Epilepsy; convulsions (20 sources) Seizure; Translations: [Neurological finding] Onset: 02-21-2020 Resolved: 02-22-2020 07-05-2018 Episodic Nutritional deficiencies (3 sources) Folic acid deficiency; Translations: [Deficiency of other specified B group vitamins] Onset: 05-01-2025 Episodic Other and unspecified benign neoplasm (1 source) Benign neoplasm of unspecified part of mouth; Translations: [Benign tumor of mouth] Onset: 05-01-2025 Episodic Other gastrointestinal disorders (20 sources) Alteration in bowel elimination; Translations: [Change in bowel habit] Onset: 07-22-2020 07-22-2020 Episodic Other gastrointestinal disorders (20 sources) Altered bowel function; Translations: [Change in bowel habit] Onset: 07-22-2020 07-22-2020 Episodic Other infections; including parasitic (8 sources) History of gynecological disorder; Translations: [Personal history of other genital system and obstetric disorders] Resolved: 02-18-2021 Episodic Other injuries and conditions due to external causes (1 source) Unspecified injury of left wrist, hand and finger(s), sequela; Translations: [Finger injury, left, sequela] Onset: 05-01-2025 Episodic Other lower respiratory disease (1 source) Shortness of breath; Translations: [SOB (shortness of breath)] Onset: 05-01-2025 Episodic Other non-traumatic joint disorders (20 sources) Pain in left knee; Translations: [Pain in joint, lower leg] Onset: 09-20-2019 09-20-2019 Episodic Other non-traumatic joint disorders (20 sources) Hypermobility of joint; Translations: [Joint derangement, unspecified] Onset: 09-16-2020 09-16-2020 Episodic Other non-traumatic joint disorders (20 sources) Shoulder pain; Translations: [Pain in right shoulder] Onset: 04-23-2022 Episodic Other non-traumatic joint disorders (20 sources) Pain in right shoulder; Translations: [Pain in joint, shoulder region] Onset: 04-23-2022 04-23-2022 Episodic Other nutritional; endocrine; and metabolic disorders (20 sources) Developmental delay; Translations: [Unspecified lack of expected normal physiological development in childhood] Onset: 08-30-2018 08-30-2018 Episodic Other conditions (20 sources) neurological disorder; Translations: [Other specified conditions originating in the period] Onset: 08-30-2018 08-30-2018 Episodic Residual codes; unclassified (20 sources) Past history of procedure; Translations: [Other specified postprocedural states] Onset: 08-26-2020 08-26-2020 Episodic Residual codes; unclassified (20 sources) History of colonoscopy; Translations: [Other specified postprocedural states] Onset: 08-26-2020 08-26-2020 Episodic Unclassified (1 source) L HAND PAIN Onset: 05-10-2018 Unclassified (3 sources) History of clinical finding in subject; Translations: [History of seizure] Unclassified (1 source) Injury of finger of left hand 05-01-2025 NEGATED: Highlighted row has not occurred!Residual codes; unclassified (20 sources) Disease Episodic Results Test Name Value Interpretation Reference Range Facility [facility] Text Normal [facility] CNOVon 09-11-2025 CNOV Office Visit (PODIWS ) PER FARMER ([id number]) 1995 F DEF Date Time Provider Department 09/11/25 3:15 PM MARIA TERESA JOHN PODIWS During your visit today, we recorded the following information about you: Mckenna Vitale LPN 09/11/2025 10:31 PM Signed AMB ROOMING INTAKE FLOWSHEET DATA Pain Pain Level: 10 Pain Location: Foot-Left Description: Radiating Duration Amount of Time: 1 Duration Units: Months Frequency: Intermittent Intervention/Comfort measure: Relaxation, Reposition, Medication Patient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 Right COMPARISON: None. FINDINGS: Normal glenohumeral articulation. Normal acromioclavicular joint. Normal acromion. Normal humeral head and visualized proximal humerus. Normal visualized scapula. There is no demonstrated soft tissue abnormality. Normal visualized pulmonary apex. RAD/Shoulder min 2 Views IMPRESSION: No evidence for acute abnormality. Reading [facility] CC: Dr. Sophie Avalos MD; Mukul Yusuf DO Tire Layer: Signed Normal [facility] Urinalysis, Completeon 09-10 BACTERIA Normal None Seen [facility] Comment on above: Order Comment: VAISHNAVI CTOR TO SPECIFY Result Comment: JOHNNY ENT DEPARTED ER. CANCELLED PER JYOTSNA RN (ER) Performed By: #### L 400.0001 ####[facility] [address] [place], [address] BILIRUBIN URINE Normal Negative [facility] Comment on above: Order Comment: VAISHNAVI CTOR TO SPECIFY Result Comment: JOHNNY ENT DEPARTED ER. CANCELLED PER JYOTSNA RN (ER) Performed By: #### L 400.0001 ####[facility] [address] [place], [address] Clarity (U) Normal Clear [facility] Comment on above: Order Comment: VAISHNAVI CTOR TO SPECIFY Result Comment: JOHNNY ENT DEPARTED ER. CANCELLED PER JYOTSNA RN (ER) Performed By: #### L 400.0001 ####[facility] [address] [place], [address] Color (U) Normal Yellow [facility] Comment on above: Order Comment: VAISHNAVI CTOR TO SPECIFY Result Comment: JOHNNY ENT DEPARTED ER. CANCELLED PER JYOTSNA RN (ER) Performed By: #### L 400.0001 ####[facility] [address] [place], [address] EPI,SQUAMOUS Normal 5-10 [facility] Comment on above: Order Comment: VAISHNAVI CTOR TO SPECIFY Result Comment: JOHNNY ENT DEPARTED ER. CANCELLED PER JYOTSNA RN (ER) Performed By: #### L 400.0001 ####[facility] [address] [place], [address] GLUCOSE, UR Normal Normal [facility] Comment on above: Order Comment: VAISHNAVI CTOR TO SPECIFY Result Comment: JOHNNY ENT DEPARTED ER. CANCELLED PER JYOTSNA RN (ER) Performed By: #### L 400.0001 ####[facility] [address] [place], [address] KETONE UR Normal Negative [facility] Comment on above: Order Comment: VAISHNAVI CTOR TO SPECIFY Result Comment: JOHNNY ENT DEPARTED ER. CANCELLED PER JYOTSNA RN (ER) Performed By: #### L 400.0001 ####[facility] [address] [place], [address] LEUK ESTERASE Normal Negative [facility] Comment on above: Order Comment: VAISHNAVI CTOR TO SPECIFY Result Comment: JOHNNY ENT DEPARTED ER. CANCELLED PER JYOTSNA RN (ER) Performed By: #### L 400.0001 ####[facility] [address] [place], [address] Mucus Ql (Urine sed) Normal [facility] Comment on above: Order Comment: VAISHNAVI CTOR TO SPECIFY Result Comment: JOHNNY ENT DEPARTED ER. CANCELLED PER JYOTSNA RN (ER) Performed By: #### L 400.0001 ####[facility] [address] [place], [address] Nitrite Ql (U) Normal Negative [facility] Comment on above: Order Comment: COLLE CTOR TO SPECIFY Result Comment: JOHNNY ENT DEPARTED ER. CANCELLED PER JYOTSNA RN (ER) Performed By: #### L 400.0001 ####[facility] [address] [place], [address] OCCULT BLOOD-UR Normal Negative [facility] Comment on above: Order Comment: VAISHNAVI CTOR TO SPECIFY Result Comment: JOHNNY ENT DEPARTED ER. CANCELLED PER JYOTSNA RN (ER) Performed By: #### L 400.0001 ####[facility] [address] [place], [address] pH UR Normal 5.0 - 8.0 [facility] Comment on above: Order Comment: VAISHNAVI CTOR TO SPECIFY Result Comment: JOHNNY ENT DEPARTED ER. CANCELLED PER JYOTSNA RN (ER) Performed By: #### L 400.0001 ####[facility] [address] [place], [address] PROT DIPSTX Normal Negative [facility] Comment on above: Order Comment: VAISHNAVI CTOR TO SPECIFY Result Comment: JOHNNY ENT DEPARTED ER. CANCELLED PER JYOTSNA RN (ER) Performed By: #### L 400.0001 ####[facility] [address] [facility] [address] RBC Normal 0-5 [facility] Comment on above: Order Comment: VAISHNAVI CTOR TO SPECIFY Result Comment: JOHNNY ENT DEPARTED ER. CANCELLED PER JYOTSNA RN (ER) Performed By: #### L 400.0001 ####[facility] [address] [place], [address] SP.GR. DIPSTX Normal 1.002-1.03 0 [facility] Comment on above: Order Comment: VAISHNAVI CTOR TO SPECIFY Result Comment: JOHNNY ENT DEPARTED ER. CANCELLED PER JYOTSNA RN (ER) Performed By: #### L 400.0001 ####[facility] [address] [place], [address] UR Preservative Normal [facility] Comment on above: Order Comment: VAISHNAVI CTOR TO SPECIFY Result Comment: JOHNNY ENT DEPARTED ER. CANCELLED PER JYOTSNA RN (ER) Performed By: #### L 400.0001 ####[facility] [address] [place], [address] UROBILI Normal Normal [facility] Comment on above: Order Comment: COLLE CTOR TO SPECIFY Result Comment: JOHNNY ENT DEPARTED ER. CANCELLED PER JYOTSNA RN (ER) Performed By: #### L 400.0001 ####[facility] [address] [place], [address] WBC Normal 0-5 [facility] Comment on above: Order Comment: COLLE CTOR TO SPECIFY Result Comment: JOHNNY ENT DEPARTED ER. CANCELLED PER JYOTSNA RN (ER) Performed By: #### L 400.0001 ####[facility] [address] [place], [address] Abdomen/Pelvis W IV Cont ONL Yon 09-04-2025 Abdomen/Pelvis W IV Cont ONLY [facility] Imaging Services [address] [place] [address] Abdomen/Pelvis W IV Cont ONLY MR#: [id number] Acct: [id number] Name: PER FARMER Rep #: [id number] : 1995 F 30 From: Toni Lou MD PCP: Dr. Sophie Avalos MD Status: [facility] ER Study: Abdomen/Pelvis W IV Cont ONLY Date of Exam: Exam# [id number] Ordering Dr: Jose Blair MD PROCEDURE: ABDOMEN/PELVIS W IV CONT ONLY 09/04/2025 REASON FOR EXAM: BILATERAL LOWER QUADRANT ABDOMINAL PAIN. TECHNIQUE: Procedure Code: CTABDPELIV Modality: CT Procedure: ABDOMEN/PELVIS W IV CONT ONLY Coronal and Sagittal reconstruction series were provided. CONTRAST: VOLUME: mL One or more dose reduction techniques were used (e.g., Automated exposure control, adjustment of the mA and/or kV according to patient size, use of iterative reconstruction technique. COMPARISON: CT dated 07/16/2021. FINDINGS: The visualized lung bases are clear. The liver, pancreas, spleen, adrenal glands, kidneys, and urinary bladder appear unremarkable. Cholecystectomy. A 2.5 cm cystic structure is noted within the right adnexa, likely representing an ovarian cyst. A large amount of stool is noted within the colon. No evidence of a bowel obstruction. No bowel wall thickening. The appendix is visualized and unremarkable. No intraperitoneal free air or free fluid. No abdominal nor pelvic lymphadenopathy. No acute osseous abnormality. No acute fracture. CT/Abdomen/Pelvis W IV Cont ONLY IMPRESSION: 1. Right ovarian cyst measuring 2.5 cm. 2. Large amount of stool within the colon. Reading Location: [facility] CC: Dr. Jose Blair MD; Dr. Sophie Avalos MD Tire Layer: Signed Normal [facility] Absolute lymphocyte countOrd ered By: Jose Blair on 09-04-2025 Lymphocytes Auto (Unsp spec) [#/Vol] 2.84 10*3/uL 0.83-4.51 [facility] Absolute neutrophil countOrd ered By: Jose Blair on 09-04-2025 Neutrophils (Bld) [#/Vol] 4.5 10*3/uL 2.0-7.7 [facility] Anion gap in Serum or Plasma Ordered By: Jose Blair on 09-04-2025 Anion gap [Moles/Vol] 12 mmol/L 5-15 [facility] Automated lymphocyte count a s percentage of total leukocytesOrdered By: Jose Blair on 09-04-2025 Lymphocytes/100 WBC Auto (Unsp spec) 33.1 % 19-41 [facility] BUN/creatinine ratioOrdered By: Jose Blair on 09-04-2025 Urea nitrogen/Creatinine [Mass ratio] 13.7 mg/mg 10-20 [facility] Basophil percentageOrdered B y: Jose Blair on 09-04-2025 Basophils/100 WBC (Bld) 0.9 % 0-1 [facility] Bilirubin Test strip Ql (U)O rdered By: Jose Blair on 09-04-2025 Bilirubin Ql (U) Negative Negative [facility] Bilirubin, totalOrdered By: Jose Blair on 09-04-2025 Bilirubin [Mass/Vol] 0.30 mg/dL 0.00-1.30 [facility] CBC W/Diff, Automatedon Absolute Lymph 2.84 X10 3/uL Normal 0.83-4.51 [facility] Comment on above: Performed By: #### L 700.6800, L501.2450, L100.0100, L500.4050 #### [facility] Laboratory [address] [place], [address] Absolute Neut 4.5 X10 3/uL Normal 2.0-7.7 [facility] Comment on above: Performed By: #### L 700.6800, L501.2450, L100.0100, L500.4050 #### [facility] Laboratory [address] [place], [address] Basophils/100 WBC (Bld) 0.9 % Normal 0-1 [facility] Comment on above: Performed By: #### L 700.6800, L501.2450, L100.0100, L500.4050 #### [facility] Laboratory [address] [place], [address] Eosinophils/100 WBC (Bld) 7.1 % High 0-5 [facility] Comment on above: Performed By: #### L 700.6800, L501.2450, L100.0100, L500.4050 #### [facility] Laboratory [address] [place], [address] Erythrocyte distribution width (RBC) [Ratio] 13.5 % Normal 11.6-14.6 [facility] Comment on above: Performed By: #### L 700.6800, L501.2450, L100.0100, L500.4050 #### [facility] Laboratory [address] [place], [address] Hematocrit (Bld) [Volume fraction] 37.5 % Normal 37-47 [facility] Comment on above: Performed By: #### L 700.6800, L501.2450, L100.0100, L500.4050 #### [facility] Laboratory [address] [place], [address] Hemoglobin (Bld) [Mass/Vol] 13.1 g/dL Normal 12.0-15.0 [facility] Comment on above: Performed By: #### L 700.6800, L501.2450, L100.0100, L500.4050 #### [facility] Laboratory [address] [place], [address] IG% 0.200 Normal 0.0-0.9 [facility] Comment on above: Result Comment: IG% - Immature Granulocytes (promyelocytes, myelocytes and metamyelocytes) > 1% indicates that a LEFT SHIFT is Present. Performed By: #### L 700.6800, L501.2450, L100.0100, L500.4050 #### [facility] Laboratory [address] [place], [address] Lymphocytes/100 WBC (Bld) 33.1 % Normal 19-41 [facility] Comment on above: Performed By: #### L 700.6800, L501.2450, L100.0100, L500.4050 #### [facility] Laboratory [address] [place], [address] MCH (RBC) [Entitic mass] 29.8 pg Normal 27.0-32.0 [facility] Comment on above: Performed By: #### L 700.6800, L501.2450, L100.0100, L500.4050 #### [facility] Laboratory [address] [place], [address] MCHC (RBC) [Mass/Vol] 34.9 g/dL Normal 32-36 [facility] Comment on above: Performed By: #### L 700.6800, L501.2450, L100.0100, L500.4050 #### [facility] Laboratory [address] [place], [address] MCV (RBC) [Entitic vol] 85.4 fL Normal 81-99 [facility] Comment on above: Performed By: #### L 700.6800, L501.2450, L100.0100, L500.4050 #### [facility] Laboratory [address] [place], [address] Monocytes/100 WBC (Bld) 5.9 % Normal 0-10 [facility] Comment on above: Performed By: #### L 700.6800, L501.2450, L100.0100, L500.4050 #### [facility] Laboratory [address] [place], [address] Neutrophils/100 WBC (Bld) 52.8 % Normal 47-70 [facility] Comment on above: Performed By: #### L 700.6800, L501.2450, L100.0100, L500.4050 #### [facility] Laboratory [address] [place], [address] Nucleated RBC (Bld) [#/Vol] 0 10*3/uL Normal 0-5 [facility] Comment on above: Performed By: #### L 700.6800, L501.2450, L100.0100, L500.4050 #### [facility] Laboratory [address] [place], [address] Platelet mean volume (Bld) [Entitic vol] 9.6 fL Normal 6.2-12.0 [facility] Comment on above: Performed By: #### L 700.6800, L501.2450, L100.0100, L500.4050 #### [facility] Laboratory [address] [place], [address] Platelets (Bld) [#/Vol] 295 10*3/uL Normal 150-450 [facility] Comment on above: Performed By: #### L 700.6800, L501.2450, L100.0100, L500.4050 #### [facility] Laboratory [address] [place], [address] RBC (Bld) [#/Vol] 4.39 10*6/uL Normal 4.2-5.4 [facility] Comment on above: Performed By: #### L 700.6800, L501.2450, L100.0100, L500.4050 #### [facility] Laboratory [address] [place], [address] RDW SD 42.5 fl Normal 35.1-43.9 [facility] Comment on above: Performed By: #### L 700.6800, L501.2450, L100.0100, L500.4050 #### [facility] Laboratory [address] [place], [address] WBC (Bld) [#/Vol] 8.6 10*3/uL Normal 4.4-11.0 [facility] Comment on above: Performed By: #### L 700.6800, L501.2450, L100.0100, L500.4050 #### [facility] Laboratory [address] [place], [address] Carbon dioxide, total [Moles /volume] in Central venous bloodOrdered By: Jose Blair on 09-04-2025 CO2 [Moles/Vol] 21.0 mmol/L 21.0-32.0 [facility] Chloride assayOrdered By: Scott Blair on 09-04-2025 Chloride [Moles/Vol] 106 mmol/L 98-108 [facility] Comprehensive Metabolic Prof ilon 09-04-2025 Albumin [Mass/Vol] 4.1 g/dL Normal 3.5-5.0 [facility] Comment on above: Performed By: #### L 700.6800, L501.2450, L100.0100, L500.4050 #### [facility] Laboratory [address] [place], [address] Albumin/Globulin [Mass ratio] 1.4 {ratio} Normal 0.9-2.4 [facility] Comment on above: Performed By: #### L 700.6800, L501.2450, L100.0100, L500.4050 #### [facility] Laboratory [address] [place], [address] ALK PHOS 47 U/L Normal 35-104 [facility] Comment on above: Performed By: #### L 700.6800, L501.2450, L100.0100, L500.4050 #### [facility] Laboratory [address] [place], [address] ALT [Catalytic activity/Vol] 11 U/L Normal <=34 [facility] Comment on above: Performed By: #### L 700.6800, L501.2450, L100.0100, L500.4050 #### [facility] Laboratory [address] [place], [address] AST [Catalytic activity/Vol] 15 U/L Normal <=31 [facility] Comment on above: Performed By: #### L 700.6800, L501.2450, L100.0100, L500.4050 #### [facility] Laboratory [address] [place], [address] Bilirubin [Mass/Vol] 0.30 mg/dL Normal 0.00-1.30 [facility] Comment on above: Performed By: #### L 700.6800, L501.2450, L100.0100, L500.4050 #### [facility] Laboratory [address] [place], [address] BUN/CRE 13.7 RATIO Normal 10-20 [facility] Comment on above: Performed By: #### L 700.6800, L501.2450, L100.0100, L500.4050 #### [facility] Laboratory [address] [place], [address] Calcium [Mass/Vol] 9.3 mg/dL Normal 7.6-11.0 [facility] Comment on above: Performed By: #### L 700.6800, L501.2450, L100.0100, L500.4050 #### [facility] Laboratory [address] [place], [address] Chloride [Moles/Vol] 106 mmol/L Normal 98-108 [facility] Comment on above: Performed By: #### L 700.6800, L501.2450, L100.0100, L500.4050 #### [facility] Laboratory [address] [place], [address] CO2 [Moles/Vol] 21.0 mmol/L Normal 21.0-32.0 [facility] Comment on above: Performed By: #### L 700.6800, L501.2450, L100.0100, L500.4050 #### [facility] Laboratory [address] [place], [address] Creatinine [Mass/Vol] 0.68 mg/dL Low 0.70-1.20 [facility] Comment on above: Performed By: #### L 700.6800, L501.2450, L100.0100, L500.4050 #### [facility] Laboratory [address] [place], [address] ECRCL 143.34 ml/min Normal 50-250 [facility] Comment on above: Performed By: #### L 700.6800, L501.2450, L100.0100, L500.4050 #### [facility] Laboratory [address] [place], [address] GAP 12 Normal 5-15 [facility] Comment on above: Performed By: #### L 700.6800, L501.2450, L100.0100, L500.4050 #### [facility] Laboratory [address] [place], [address] GFR/1.73 sq M.predicted among non-blacks MDRD (S/P/Bld) [Vol rate/Area] 122 mL/min/{1.73_m2} Normal >60 [facility] Comment on above: Result Comment: mL/m in/1.73m2 CKD-EPI Creatinine Equation (2020) Performed By: #### L 700.6800, L501.2450, L100.0100, L500.4050 #### [facility] Laboratory [address] [place], [address] Globulin (S) [Mass/Vol] 2.9 g/dL Normal 2.2-4.2 [facility] Comment on above: Performed By: #### L 700.6800, L501.2450, L100.0100, L500.4050 #### [facility] Laboratory [address] [place], [address] Glucose [Mass/Vol] 85 mg/dL Normal 70-99 [facility] Comment on above: Performed By: #### L 700.6800, L501.2450, L100.0100, L500.4050 #### [facility] Laboratory [address] [place], [address] Potassium [Moles/Vol] 3.9 mmol/L Normal 3.3-5.1 [facility] Comment on above: Performed By: #### L 700.6800, L501.2450, L100.0100, L500.4050 #### [facility] Laboratory [address] [place], [address] Sodium [Moles/Vol] 139 mmol/L Normal 133-145 [facility] Comment on above: Performed By: #### L 700.6800, L501.2450, L100.0100, L500.4050 #### [facility] Laboratory [address] [place], [address] T PROT 7.0 g/dL Normal 5.9-8.4 [facility] Comment on above: Performed By: #### L 700.6800, L501.2450, L100.0100, L500.4050 #### [facility] Laboratory [address] [place], [address] Urea nitrogen [Mass/Vol] 9 mg/dL Normal 4-19 [facility] Comment on above: Performed By: #### L 700.6800, L501.2450, L100.0100, L500.4050 #### [facility] Laboratory [address] [place], [address] Emergency Department Summary on 09-04-2025 Emergency Department Summary [facility] Medical Records Department [address] [place] [address] Emergency Department Summary 09/04/25 MR#: [id number] Acct: [id number] Name: PER FARMER Rep #: [id number] : 1995 30 From: oJse Blair MD PCP: Dr. Sophie Avalos MD Status:REG ER Location: ED HPI HPI - GI History of Present Illness Chief Complaint: Abd Pain Informant: patient Abdominal Pain/Flank Pain Context: Gradual Onset Timing: Continuous Quality: Cramping Location: RLQ and LLQ Current Severity: Moderate Maximum Severity: Moderate Worsened by: Nothing Relieved by: Nothing Nausea/Vomiting/Emesis GI Symptom: Positive for Nausea; Negative for Vomiting Severity: Mild Diarrhea/Melena/Hematochezia GI Symptom: Positive for Diarrhea; Negative for Melena or Hematochezia Onset: Today Stool Quality: Positive for Loose Severity: Mild Associated Symptoms Associated Symptoms: Negative for Dysuria, Frequency, Hematuria or Urgency Narrative Narrative: 30-year-old female history of anemia, IBS, prior cholecystectomy and prior right ovary was removed with her ovarian cyst. Patient is she has had abdominal pain for about a week constant bilateral lower quadrants. Associated with nausea and diarrhea no vomiting. Denies any fever no dysuria. No trauma. States she is not . Denies any weight change. No has her appendix. Prior similar symptoms: No Recent Illness/Hospitalization: No PFSH [facility] Medical History Anemia ADHD Dermoid cyst of right ovary Migraines Seizures Anxiety Depression HPV (human papilloma virus) infection IBS (irritable bowel syndrome) Home Medications ???Medication ???Instructions ???Recorded ???Last Taken ???Type albuterol sulfate 90 mcg/actuation 1 puff inhalation Q4H PRN PRN Unknown History aerosol inhaler (Ventolin HFA) Wheezing sertraline 100 mg tablet 100 mg PO DAILY 10/18/17 Unknown H istory ferrous sulfate 325 mg (65 mg 325 mg PO DAILY 10/18/19 Unknown H istory iron) tablet topiramate 50 mg tablet 50 mg PO BID 03/16/20 Unknown Hist ory sulfacetamide sodium 10 % eye drops 2 drp EACH EYE Q4H PRN 06/19/22 Unknown History ondansetron 4 mg disintegrating 4 mg PO Q8H PRN PRN Nausea #10 tab s 07/31/22 Unknown Rx tablet naproxen 500 mg tablet (Naprosyn) 500 mg PO BID PRN pain #20 tabs 1 Unknown Rx tizanidine 4 mg capsule (Zanaflex) 4 mg PO Q8H PRN muscle spasticit y 09/24/22 Unknown Rx #14 caps folic acid 1 mg tablet 1 mg PO DAILY 10/17/22 Unknown His tory albuterol sulfate 90 mcg/actuation 1 - 2 puff inhalation Q4H PRN NV N 01/09/23 Unknown Rx aerosol inhaler (Ventolin HFA) Wheezing #1 device ipratropium 0.5 mg-albuterol 3 mg 3 ml inhalation Q6H PRN shortness 01/09/23 Unknown Rx (2.5 mg base)/3 mL nebulization of breath or wheezing #180 mL soln nebulizer and compressor #1 ea 01/09/23 Unknown Rx promethazine 6.25 mg-codeine 10 5 ml PO 4X/DAY PRN PRN cough 7 10/21 Unknown Rx mg/5 mL syrup days #140 mL loperamide 2 mg capsule 2 mg PO Q6H PRN loose stool 4 days 02/11/23 Unknown Rx #10 caps Allergy/AdvReac Type Severity Reaction Status Date / Time amoxicillin Allergy Anaphylaxis Verified 09/04/25 21:24 bee venom protein (honey bee) Allergy Swelling Verified 09/04/25 21:24 etonogestrel (From Nexplanon) Allergy Swelling Verified 09/04/25 21:24 lidocaine Allergy Anaphylaxis Verified 09/04/25 21:24 mepivacaine (From Carbocaine) Allergy Swelling Verified 09/04/25 21:24 mushroom Allergy Other Verified 09/04/25 21:24 procaine (From Novocain) Allergy Swelling Verified 09/04/25 21:24 adhesive tape AdvReac Rash Verified 09/04/25 21:24 Surgical History Hx of cholecystectomy Hx of laparoscopy Social History household members: friend(s) Smoking Status: Current every day smoker tobacco type: cigarettes and e-cigarettes alcohol intake: current alcohol intake frequency: other substance use type: does not use ROS ROS ED ROS Narrative Bilateral lower quadrant abdominal pain. Nausea and diarrhea. Constitutional Constitutional ED: Denies chills or fever(s) ENT ENT ED: Denies ear pain Cardiovascular Cardiovascular: Denies chest pain Respiratory/Chest Respiratory/Chest: Denies cough or dyspnea Gastrointestinal Gastrointestinal: Reports abdominal pain, diarrhea and nausea Genitourinary Genitourinary ED: Denies dysuria or hematuria Musculoskeletal Musculoskeletal: Denies arthralgias Integumentary Denies abscess Neurologic Neurologic: Denies headache(s) Endocrine Endocrinology: Denies polydipsia Hematologic/Lymphatic Hematologic/Lymphatic: Denies easy bleedi (more content not included)... Normal [facility] Eosinophil percentageOrdered By: Jose Blair on 09-04-2025 Eosinophils/100 WBC (Bld) 7.1 % High 0-5 [facility] Erythrocyte distribution wid th ratioOrdered By: Jose Blair on 09-04-2025 Erythrocyte distribution width (RBC) [Ratio] 13.5 % 11.6-14.6 [facility] Erythrocyte distribution wid th standard deviationOrdered By: Jose Blair on 09-04-2025 Erythrocyte distribution width (RBC) [Ratio] 42.5 fl 35.1-43.9 [facility] Glomerular filtration rate ( GFR) estimation/1.73 sq m using serum, plasma, or whole bOrdered By: Jose Blair on 09-04-2025 GFR/1.73 sq M.predicted among non-blacks MDRD (S/P/Bld) [Vol rate/Area] 122 mL/min/{1.73_m2} >60 [facility] Comment on above: mL/min/1.73m2 CKD-EP I Creatinine Equation (2020) Hematocrit Auto (Bld) [Volum e fraction]Ordered By: Jose Blair on 09-04-2025 Hematocrit (Bld) [Volume fraction] 37.5 % 37-47 [facility] Hemoglobin measurementOrdere d By: Jose Blair on 09-04-2025 Hemoglobin (Bld) [Mass/Vol] 13.1 g/dL 12.0-15.0 [facility] Immature granulocytes/100 WB C Auto (Bld)Ordered By: Jose Blair on 09-04-2025 Immature granulocytes/100 WBC (Bld) 0.200 % 0.0-0.9 [facility] Comment on above: IG% - Immature Granu locytes (promyelocytes, myelocytes and metamyelocytes) > 1% indicates that a LEFT SHIFT is Present. Ketones Test strip Ql (U)Ord ered By: Jose Blair on 09-04-2025 Ketones Ql (U) Negative Negative [facility] Laboratory - Chemistry and C hemistry - challengeOrdered By: Jose Blair on 09-04-2025 AST [Catalytic activity/Vol] 15 U/L <32 [facility] Lipaseon 09-04-2025 Lipase [Catalytic activity/Vol] 31 U/L Normal 13-75 [facility] Comment on above: Result Comment: Sahra hooks note: LIPASE revised reference range effective 23. New Lipase methodology. Expected to produce lower values than the previous assay method. NEW Reference Range: 13 - 75 U/L Performed By: #### L 700.6800, L501.2450, L100.0100, L500.4050 ####[facility] [address] [place], [address] Lipase measurementOrdered By : Jose Blair on 09-04-2025 Lipase [Catalytic activity/Vol] 31 U/L 13-75 [facility] Comment on above: Please note:LIPASE r evised reference range effective 23. New Lipase methodology. Expected to produce lower values than the previous assay method. NEW Reference Range: 13 - 75 U/L MCV (mean corpuscular volume ) determinationOrdered By: Jose Blair on 09-04-2025 MCV (RBC) [Entitic vol] 85.4 fL 81-99 [facility] Mean corpuscular hemoglobin (MCH) determinationOrdered By: Jose Blair on 09-04-2025 MCH (RBC) [Entitic mass] 29.8 pg 27.0-32.0 [facility] Mean corpuscular hemoglobin concentration (MCHC) determinationOrdered By: Jose Blair on 09-04-2025 MCHC (RBC) [Mass/Vol] 34.9 g/dL 32-36 [facility] Mean platelet volume determi nationOrdered By: Jose Blair on 09-04-2025 Platelet mean volume (Bld) [Entitic vol] 9.6 fL 6.2-12.0 [facility] Microscopic analysis of urin e for red blood cells (RBC)Ordered By: Jose Blair on 09-04-2025 Microscopic analysis of urine for red blood cells (RBC) 0-5 SEEN /hpf 0-5 [facility] Monocyte percentageOrdered B y: Jose Blair on 09-04-2025 Monocytes/100 WBC (Bld) 5.9 % 0-10 [facility] Mucus LM Ql (Urine sed)Order ed By: Jose Balir on 09-04-2025 Mucus Ql (Urine sed) 0 SEEN /hpf [facility] Neutrophil percentageOrdered By: Jose Blair on 09-04-2025 Neutrophils/100 WBC (Bld) 52.8 % 47-70 [facility] Nitrite Test strip Ql (U)Ord ered By: Jose Blair on 09-04-2025 Nitrite Ql (U) Negative Negative [facility] Nucleated red blood cell per centageOrdered By: Jose Blair on 09-04-2025 Nucleated RBC/100 WBC (Bld) [Ratio] 0 % 0-5 [facility] Platelet countOrdered By: Scott Blair on 09-04-2025 Platelets (Bld) [#/Vol] 295 10*3/uL 150-450 [facility] Potassium measurement (mass/ volume)Ordered By: Jose Blair on 09-04-2025 Potassium (Unsp spec) [Mass/Vol] 3.9 mmol/L 3.3-5.1 [facility] ,Serum,hCG Quali.on 09-04-2025 HCG,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 month. Do not shake. Dispense: 1.5 mL Refills: 11 Start: 07/31/2025 Class: Normal Diagnoses: Intractable chronic migraine without aura and without status migrainosus [G43.719] This order has been released to its destination. To be filled at: [facility] [address] [place] [address] [address] [facility] - [phone] Di Arreola APRN.CNP 08/01/2025 4:40 PM Signed This was the previous denial, which states that she needs to use at least two different preferred controller migraine medications, which she has -- She has been on an SNRI (duloxetine) and an anticonvulsant (topiramate). She has met the criteria to progress to the step medication. Can this be appealed? Di Arreola APRN.BAKARI Note from payer: Coverage is provided when the member meets the following requirements: 1. The member has a history of at least 30 days of therapy with at least TWO additional different preferred controller migraine medications AND one step therapy medication in this UPDL category. Preferred controller migraine medications include but are not limited to: beta-blockers (such as: propranolol and timolol), tricyclic antidepressants (such as: amitriptyline and nortriptyline), anticonvulsants (such as: topiramate), and/or serotonin-norepinephrine reuptake inhibitors (such as: venlafaxine ER capsules and duloxetine capsules (20, 30 and 60 mg). Step therapy medications include: Aimovig, Ajovy, and Emgality (all require step therapy prior authorization); AND 2. Provider has submitted objective documentation of severity, frequency, type of migraine, and number of headache days per month. Payer: [facility] Electronic appeal: Not supported Zeenat Terrazas LPN 08/01/2025 4:50 PM Signed Appeal requested for review Zeenat Terrazas LPN 08/06/2025 10:43 AM Signed Acknowledgement rec'd appeal review Zeenat Terrazas LPN 09/05/2025 4:27 PM Signed Prior authorization approved Payer: [facility] Note from payer: Your PA request for [id number] was approved for 180 days. The PA# assigned is [id number]. Approved medication: AJOVY 225 MG/1.5 ML AUTOINJECT Please note that additional plan limitations may still apply such as refill too soon, quantity limits exceeded, brand or generic preferred, etc. Approval Details Authorization number: [id number] Authorized from September 05, 2025 to March 03, 2026 Electronic appeal: Not supported Prior auth initiated by: Zeenat Terrazas LPN View History Medication Being Authorized fremanezumab-vfrm (AJOVY AUTOINJECTOR) 225 mg/1.5 mL auto-injector Inject 1.5 mL subcutaneously once every month. Do not shake. Dispense: 1.5 mL Refills: 11 Start: 07/31/2025 Class: Normal Diagnoses: Intractable chronic migraine without aura and without status migrainosus [G43.719] This order has been released to its destination. To be filled at: [facility] [address] [place] [address] [address] - [phone] Allergies As of Date: 08/01/2025 Noted Allergy Reaction AMOXICILLIN 12/01/2017 12 - Shortness of Breath BEE VENOM PROTEIN (HONEY BEE) 10/05/2021 7 - Swelling LIDOCAINE 12/01/2017 7 - Swelling MUSHROOM 12/01/2017 10 - Anaphylaxis NEXPLANON (ETONOGESTREL) 12/01/2017 7 - Swelling ADHESIVE TAPE-SILICONES 06/29/2022 2 - Rash CARBOCAINE (MEPIVACAINE HCL) 08/27/2018 16 - Unknown NORETHINDRONE AC-ETH ESTRADIOL 06/29/2022 14 - Other (more content not included)... Normal [facility] CNOVon 07-31-2025 CNOV Office Visit ([facility] ) PER FARMER ([id number]) 1995 F DEF Date Time Provider Department 07/31/25 1:00 PM [facility] During your visit today, we recorded the following information about you: Pulse Blood pressure Weight 77/minute 112/72 79.4 kg Di Arreola APRN.[employer] SUPERINTENDENT 08/01/2025 7:21 AM Signed This is a 30 year old female who presents today with: Patient presents with: Follow Up: Referral to CUSTOMER ENGAGEMENT MANAGER for pap? Migraine: Increase in migraines since stopping topamax. Was not able to get the Qulipta. Also duloxetine was only ordered as once daily and she thought was to be twice daily. HISTORY OF PRESENT ILLNESS: Per Farmer is a 30 year old female. Patient presents with: Follow Up: Referral to CUSTOMER ENGAGEMENT MANAGER for pap? Migraine: Increase in migraines since stopping topamax. Was not able to get the Qulipta. Also duloxetine was only ordered as once daily and she thought was to be twice daily. Migraines: She is taking the duloxetine. She is taking 60 mg daily. Has not noticed an improvement with her migraines. She has previously taken topamax, and she recently weaned off of this, as it wasn't making a difference. She has used OTC medications and prescription naproxen. Headaches -- she is having more than 15 migraine days per months. She reports multiple headaches per month and each will last appx a week. With get nausea/vomiting with migraines. PAST MEDICAL HISTORY: PAST MEDICAL HISTORY Diagnosis Date Anemia Asthma (HCC) Biliary colic Concussion without loss of consciousness 2021 Deafness deaf right ear 20 % hearing in left ear without hearing aid Depression Developmental delay alcohol syndrome (HCC) Hearing impaired person, right Hypoglycemia Migraines disorder alcohol syndrome. Prediabetes PTSD (post-traumatic stress disorder) Seizures (HCC) 12/01/2017 psychogenic nonepileptical Tobacco use disorder Trichomoniasis 2018 treated PAST SURGICAL HISTORY Procedure Laterality Date COLONOSCOPY FLX DX W/COLLJ SPEC WHEN PFRMD 07/22/2020 Colonoscopy ESOPHAGOGASTRODUODENOSCOPY TRANSORAL DIAGNOSTIC 07/22/2020 EGD HYSTEROSCOPY DIAGNOSTIC 06/21/2019 for AUB, x2 LYSIS OF ADHESIONS 06/21/2019 diagnostic for chronic pelvic pain, omental adhesions to ant. abd. wall, pelvis normal, op report scanned SALPINGO-OOPHORECTOMY Right 08/11/2024 Dr. Zain Her; [place], [place] ALLERGIES Amoxicillin, Bee Venom Protein (Honey Bee), Lidocaine, Mushroom, Nexplanon [Etonogestrel], Adhesive Tape-Silicones, Carbocaine [Mepivacaine Hcl], Norethindrone Ac-Eth Estradiol, and Novacain [Procaine Hcl] MEDICATIONS Current Outpatient Medications Medication Sig DULoxetine DR (CYMBALTA) 30 mg capsule Take 1 capsule by mouth once daily. levETIRAcetam (KEPPRA) 1,000 mg tablet Take 1 tablet by mouth two times a day. spironolactone (ALDACTONE) 25 mg tablet Take 1 tablet by mouth once daily. hydrOXYzine HCl (ATARAX) 25 mg tablet Take 1-2 tablets by mouth at bedtime as needed (for sleep). folic acid 1 mg tablet Take 1 tablet by mouth once daily. ferrous sulfate 325 mg (65 mg iron) tablet Take 1 tablet by mouth two times a day with meals. gabapentin (NEURONTIN) 400 mg capsule Take 1 capsule by mouth daily at bedtime for 180 days. albuterol (PROVENTIL) 2.5 mg /3 mL (0.083 %) nebulizer solution 2.5 mg 3 times daily as needed over 5-15 minutes for wheezing and shortness of breath. albuterol HFA (VENTOLIN HFA) 90 mcg/actuation inhaler Inhale 2 puffs as instructed every 4 hours as needed. blood sugar diagnostic (BLOOD GLUCOSE TEST) test strip Test blood sugar(s) 2 times daily. Dx: Type 2 DM - Controlled E11.9 Insulin: No Lancets Test blood sugar(s) 2 times daily. Dx: Type 2 DM - Controlled E11.9 Insulin: No tiZANidine HCl (ZANAFLEX) 4 mg capsule Take 1 capsule by mouth three times a day as needed. atogepant (QULIPTA) 60 mg tablet Take 1 tablet by mouth once daily. naproxen (NAPROSYN) 500 mg tablet Take 1 tablet by mouth two times a day as needed (FOR PAIN - TAKE WITH FOOD.). albuterol (PROVENTIL) 2.5 mg/3 mL (0.083 %) nebulizer solution Use 3 mL via nebulizer every 4 hours as needed for wheezing/shortness of breath. No current facility-administered medications for this visit. FAMILY HISTORY Adopted: Yes Problem Relation Age of Onset Colon Cancer Maternal Grandmother SOCIAL HISTORY[1] EXAM: BP 112/72 Pulse 77 Wt 79.4 kg (175 lb) LMP 12/28/2022 (Exact Date) SpO2 97% BMI 28.25 kg/m? PHYSICAL EXAM: General Appearance: Well appearing, alert, in no acute distress, well-hydrated, well nourished.. Skin: Skin color, texture, turgor normal, no suspicious rashes or lesions. Head: Normocephalic, no masses, lesions, tenderness or abnormalities. Eyes: Anicteric sclera. Extraocular movements are intact. . (more content not included)... Normal [facility] 06-26-2025 [facility] Telephone ([facility]) PER FARMER ([id number]) 1995 F DEF Date Time Provider Department 06/26/25 [facility] During your visit today, we recorded the following information about you: Marie Martinez MA 06/26/2025 7:59 AM Signed Pt brought in a form from the [employer] regarding her driving privileges. This has been completed. Copy made and original at medical records for pt to fiber picker. Pt notified of this via [employer]. Marie Martinez MA Allergies As of Date: 06/26/2025 Noted Allergy Reaction AMOXICILLIN 12/01/2017 12 - Shortness of Breath BEE VENOM PROTEIN (HONEY BEE) 10/05/2021 7 - Swelling LIDOCAINE 12/01/2017 7 - Swelling MUSHROOM 12/01/2017 10 - Anaphylaxis NEXPLANON (ETONOGESTREL) 12/01/2017 7 - Swelling ADHESIVE TAPE-SILICONES 06/29/2022 2 - Rash CARBOCAINE (MEPIVACAINE HCL) 08/27/2018 16 - Unknown NORETHINDRONE AC-ETH ESTRADIOL 06/29/2022 14 - Other: See Comments NOVACAIN (PROCAINE HCL) 08/27/2018 16 - Unknown Date Reviewed: 06/25/2025 Reviewed by: Keely Ward LPN - Fully Assessed Reason for Visit: Forms [913] Cmt: [facility] Prescriptions as of 06/26/2025 - tiZANidine HCl (ZANAFLEX) 4 mg capsule Take 1 capsule by mouth three times a day as needed. - desvenlafaxine ER (PRISTIQ) 25 mg 24 hr tablet Take one pill by mouth daily X 1 week; then increase to two pills daily. - atogepant (QULIPTA) 60 mg tablet Take 1 tablet by mouth once daily. - naproxen (NAPROSYN) 500 mg tablet Take 1 tablet by mouth two times a day as needed (FOR PAIN - TAKE WITH FOOD.). - spironolactone (ALDACTONE) 25 mg tablet Take 1 tablet by mouth once daily. - hydrOXYzine HCl (ATARAX) 25 mg tablet Take 1-2 tablets by mouth at bedtime as needed (for sleep). - topiramate (TOPAMAX) 50 mg tablet Take 1 tablet by mouth two times a day. - folic acid 1 mg tablet Take 1 tablet by mouth once daily. - ferrous sulfate 325 mg (65 mg iron) tablet Take 1 tablet by mouth two times a day with meals. - albuterol HFA (VENTOLIN HFA) 90 mcg/actuation inhaler Inhale 2 puffs as instructed every 4 hours as needed. - levETIRAcetam (KEPPRA) 1,000 mg tablet Take 1 tablet by mouth two times a day. - gabapentin (NEURONTIN) 400 mg capsule Take 1 capsule by mouth daily at bedtime for 180 days. - albuterol (PROVENTIL) 2.5 mg /3 mL (0.083 %) nebulizer solution 2.5 mg 3 times daily as needed over 5-15 minutes for wheezing and shortness of breath. - blood sugar diagnostic (BLOOD GLUCOSE TEST) test strip Test blood sugar(s) 2 times daily. Dx: Type 2 DM - Controlled E11.9 Insulin: No - Lancets lancets Test blood sugar(s) 2 times daily. Dx: Type 2 DM - Controlled E11.9 Insulin: No - albuterol (PROVENTIL) 2.5 mg/3 mL (0.083 %) nebulizer solution Use 3 mL via nebulizer every 4 hours as needed for wheezing/shortness of breath. Problem List As Of Date 06/26/2025 Noted Resolved Chronic RLQ pain [R10.31, G89.29] 12/01/2017 Epilepsy (HCC) [G40.909] 08/27/2018 08/30/2018 Nicotine use disorder, F17.2 [F17.200] 08/29/2018 Developmental delay [R62.50] 08/30/2018 Psychogenic nonepileptic seizure [F44.5] 08/30/2018 Hearing impaired person, bilateral [H91.93] 08/30/2018 Depression [F32.A] 08/30/2018 PTSD (post-traumatic stress disorder) [F43.10] 08/30/2018 neurological disorder [P96.89, R29.81*08/30/2018 Acute pain of left knee [M25.562] 09/20/2019 Seizure-like activity (HCC) [R56.9] 02/21/2020 02/22/2020 Asthma [J45.909] 07/22/2020 Migraine [G43.909] 07/22/2020 GERD (gastroesophageal reflux disease) [K21.9] 07/22/2020 NICOLETTE (iron deficiency anemia) [D50.9] 07/22/2020 Altered bowel habits [R19.4] 07/22/2020 History of esophagogastroduodenoscopy (EGD) [Z9*08/26/2020 H/O colonoscopy [Z98.890] 08/26/2020 Bilateral ankle pain [M25.571, M25.572] 09/16/2020 Patellofemoral pain syndrome of both knees [M22*09/16/2020 Hypermobile joints [M24.9] 09/16/2020 LGSIL on Pap smear of cervix [R87.612] 05/09/2019 Acute pain of right shoulder [M25.511] 04/23/2022 Biliary colic [K80.50] 12/24/2022 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] Encounter Status:Closed by MARIE MARTINEZ on 06/26/25 [facility] Telephone ([facility]) PER FARMER ([id number]) 1995 F DEF Date Time Provider Department 06/26/25 [facility] During your visit today, we recorded the following information about you: Zeenat Terrazas LPN 06/26/2025 8:51 AM Signed Electronic PA re'd and completed for qulipta 60mg. Zeenat Terrazas LPN 06/26/2025 3:01 PM Signed This was denied. Note from payer: Coverage is provided when the member meets the following requirements: 1. The member has a history of at least 30 days of therapy with at least TWO additional different preferred controller migraine medications AND one step therapy medication in this UPDL category. Preferred controller migraine medications include but are not limited to: beta-blockers (such as: propranolol and timolol), tricyclic antidepressants (such as: amitriptyline and nortriptyline), anticonvulsants (such as: topiramate), and/or serotonin-norepinephrine reuptake inhibitors (such as: venlafaxine ER capsules and duloxetine capsules (20, 30 and 60 mg). Step therapy medications include: Aimovig, Ajovy, and Emgality (all require step therapy prior authorization); AND 2. Provider has submitted objective documentation of severity, frequency, type of migraine, and number of headache days per month. Payer: [facility] Electronic appeal: Not supported View History Notes Time User Attachment Attachment received from payer. 06/26/2025 2:55 PM Cchs, Rx Priorauth In Document Medication Being Authorized atogepant (QULIPTA) 60 mg tablet Take 1 tablet by mouth once daily. Dispense: 30 tablet Refills: 2 Start: 06/25/2025 Class: Normal Diagnoses: Intractable migraine without status migrainosus, unspecified migraine type This order has been released to its destination. To be filled at: [facility] [address] [place] [address] [address] [facility] - [phone] Di Arreola APRN.CNP 06/26/2025 5:01 PM Signed Can please let patient know that I received a denial from the insurance for the qulipta. They are requiring a 30 day trial of an SNRI (which is what the pristiq is). If there is no improvement with that, then they are recommending another preventative medication an injectable). So please follow-up in a month, as planned so we can re-eval the headaches while she is on the pristiq. Di Arreola APRN.Marie Putnam MA 06/26/2025 5:09 PM Signed Notified pt of below. She stated that she went to the pharmacy today and was told by pharmacist that a PA is needed on the Pristiq. Routed to PA nurse to handle. WALLY Emerson Elizabeth, MA 06/27/2025 5:39 PM Signed Could not submit electronically. Did complete [employer]well form and fax with office note WALLY Cast Janice, LPN 06/29/2025 8:40 AM Signed Denial rec'd for desvenlafaxine succnt. Please review. This is in scanned documents. Di Arreola APRN.CNP 06/29/2025 10:11 AM Signed Can please let patient know that I went ahead and changed her pristiq to duloxetine. This will still be one pill by mouth daily. The denial inferred that the pristiq was not going to be covered because of being off label. Pristiq (SNRI) is not off-label for major depressive disorder. The insurance did not want to cover qulipta for migraines and wanted a trial of an SNRI as step therapy, which is off-label for an SNRI. Zeenat Terrazas LPN 06/29/2025 11:09 AM Signed Message left for pt to return call to a nurse. Mary Turpin RN 06/29/2025 12:06 PM Signed Patient returned call and given provider's message below and patient verbalized understanding. Augustin Trupin RN Allergies As of Date: 06/26/2025 Noted Allergy Reaction AMOXICILLIN 12/01/2017 12 - Shortness of Breath BEE VENOM PROTEIN (HONEY BEE) 10/05/2021 7 - Swelling LIDOCAINE 12/01/2017 7 - Swelling MUSHROOM 12/01/2017 10 - Anaphylaxis NEXPLANON (ETONOGESTREL) 12/01/2017 7 - Swelling ADHESIVE TAPE-SILICONES 06/29/2022 2 - Rash CARBOCAINE (MEPIVACAINE HCL) 08/27/2018 16 - Unknown NORETHINDRONE AC-ETH ESTRADIOL 06/29/2022 14 - Other: See Comments NOVACAIN (PROCAINE HCL) 08/27/2018 16 - Unknown Date Reviewed: 06/25/2025 Reviewed by: Keely Ward LPN - Fully Assessed Reason for Visit: Insurance Authorization [[id number]] Primary Visit Diagnosis:Current mild episode of major depressive disorder, unspecified whether recurrent [F32.0] Order(s):DULoxetine DR (CYMBALTA) 30 mg capsuleTake 1 capsule by mouth once daily.Disp: 30 capsuleRfl: 2 Prescriptions as of 06/29/2025 - DULoxetine DR (CYMBALTA) 30 mg capsule Take 1 capsule by mouth once daily. - albuterol (PROVENTIL) 2.5 mg /3 mL (0.083 %) nebulizer solution 2.5 mg 3 times daily as needed over 5-15 minutes for wheezing and shortness of breath. - albuterol HFA (VENTOLIN HFA) 90 mcg/actuation inhaler Inhale 2 puffs as instructed every 4 hours as needed. (more content not included)... Normal [facility] CNOVon 06-25-2025 CNOV Office Visit (FAMPWS ) PER FARMER ([id number]) 1995 F DEF Date Time Provider Department 06/25/25 1:40 PM [facility] During your visit today, we recorded the following information about you: Pulse Respiration Blood pressure Weight 73/minute 12/minute 118/62 80.1 kg Di Arreola APRN.GROVE SUPERINTENDENT 06/25/2025 2:29 PM Addendum Stop the escitalopram. 2. Take 1/2 tablet of sertraline daily X 1 week, then stop. 3. Start the pristiq (desvenlafaxine) by taking 1 capsule daily X 1 week; then increase to two pills daily. 4. Start the qulipta if approved (let us know if you hear if it isn't). 5. Can increase the nighttime hydroxyzine for sleep. 6. Recheck in 1 month. Di Arreola APRN.GROVE SUPERINTENDENT 06/25/2025 10:18 PM Signed This is a 29 year old female who presents today with: Per Farmer is a 29-year-old female with a history of anxiety, depression, ADD, and seizures, presenting for medication management and evaluation of migraines. HISTORY OF PRESENT ILLNESS: Anxiety and Depression: - Currently taking sertraline 1.5 tablets daily . Was on escitalopram, but hasn't been taking d/t out. - Requests medication adjustment due to lack of efficacy. - Previously tried multiple medications, including Zoloft and escitalopram. - Reports that anxiety exacerbates ADD symptoms. ADD: - Chronic difficulty with focus and attention. - Previously treated with Strattera, Vyvanse, and Adderall. - Discontinued medications due to health reasons. Seizures: - Managed with Keppra. - Last seizure over five years ago. . - Followed previously by Dr. Licona at [facility], but released d/t stable. Migraines: - Currently reportedly taking topiramate 200 mg BID. - Requests dosage increase due to frequent migraines. - Has not tried other migraine medications. - Concerned about potential weight gain from new medications. She reports migraine headaches on almost every day of the month (> 15 days/month) Sleep Disturbance: - Taking hydroxyzine 2 (20 mg) tablets at bedtime with insufficient relief. - Requests dosage increase to improve sleep quality. Muscle Spasms: - Previously prescribed tizanidine, not currently taking due to lack of refills. Edema: - Taking spironolactone 25 mg daily for ankle edema. Rotator Cuff Injury: - Uses naproxen PRN for pain management. PAST MEDICAL HISTORY: PAST MEDICAL HISTORY Diagnosis Date Anemia Asthma (HCC) Biliary colic Concussion without loss of consciousness 2021 Deafness deaf right ear 20 % hearing in left ear without hearing aid Depression Developmental delay alcohol syndrome ([facility]) Hearing impaired person, right Hypoglycemia Migraines disorder alcohol syndrome. Prediabetes PTSD (post-traumatic stress disorder) Seizures ([facility]) 12/01/2017 psychogenic nonepileptical Tobacco use disorder Trichomoniasis 2018 treated PAST SURGICAL HISTORY Procedure Laterality Date COLONOSCOPY FLX DX W/COLLJ SPEC WHEN PFRMD 07/22/2020 Colonoscopy ESOPHAGOGASTRODUODENOSCOPY TRANSORAL DIAGNOSTIC 07/22/2020 EGD HYSTEROSCOPY DIAGNOSTIC 06/21/2019 for AUB, x2 LYSIS OF ADHESIONS 06/21/2019 diagnostic for chronic pelvic pain, omental adhesions to ant. abd. wall, pelvis normal, op report scanned SALPINGO-OOPHORECTOMY Right 08/11/2024 Dr. Zain Her; [place], [place] ALLERGIES Amoxicillin, Bee Venom Protein (Honey Bee), Lidocaine, Mushroom, Nexplanon [Etonogestrel], Adhesive Tape-Silicones, Carbocaine [Mepivacaine Hcl], Norethindrone Ac-Eth Estradiol, and Novacain [Procaine Hcl] MEDICATIONS Current Outpatient Medications Medication Sig topiramate (TOPAMAX) 50 mg tablet Take 1 tablet by mouth two times a day. folic acid 1 mg tablet Take 1 tablet by mouth once daily. ferrous sulfate 325 mg (65 mg iron) tablet Take 1 tablet by mouth two times a day with meals. albuterol HFA (VENTOLIN HFA) 90 mcg/actuation inhaler Inhale 2 puffs as instructed every 4 hours as needed. levETIRAcetam (KEPPRA) 1,000 mg tablet Take 1 tablet by mouth two times a day. gabapentin (NEURONTIN) 400 mg capsule Take 1 capsule by mouth daily at bedtime for 180 days. albuterol (PROVENTIL) 2.5 mg /3 mL (0.083 %) nebulizer solution 2.5 mg 3 times daily as needed over 5-15 minutes for wheezing and shortness of breath. blood sugar diagnostic (BLOOD GLUCOSE TEST) test strip Test blood sugar(s) 2 times daily. Dx: Type 2 DM - Controlled E11.9 Insulin: No Lancets lancets Test blood sugar(s) 2 times daily. Dx: Type 2 DM - Controlled E11.9 Insulin: No albuterol (PROVENTIL) 2.5 mg/3 mL (0.083 %) nebulizer solution Use 3 mL via nebulizer every 4 hours as needed for wheezing/shortness of breath. tiZANidine HCl (ZANAFLEX) 4 mg capsule Take 1 capsule by mouth three times a day as needed. desvenlafaxine ER (PRISTIQ) 2 (more content not included)... Normal [facility] CBC W Auto Differential pane l (Bld)on 05-01-2025 Basophils (Bld) [#/Vol] 0.04 10*3/uL [facility] Basophils/100 WBC (Bld) 0.6 % [facility] Differential cell count method Nom (Bld) Auto [facility] Eosinophils (Bld) [#/Vol] 0.15 10*3/uL [facility] Eosinophils/100 WBC (Bld) 2.3 % [facility] Erythrocyte distribution width (RBC) [Ratio] 13.7 % 11.5 - 15.0 % [facility] Hematocrit (Bld) [Volume fraction] 37.5 % 36.0 - 46.0 % [facility] Hemoglobin (Bld) [Mass/Vol] 12 g/dL 11.5 - 15.5 g/dL [facility] Immature granulocytes (Bld) [#/Vol] [facility] Immature granulocytes/100 WBC (Bld) 0.2 % [facility] Lymphocytes (Bld) [#/Vol] 2.26 10*3/uL [facility] Lymphocytes/100 WBC (Bld) 34.9 % [facility] MCH (RBC) [Entitic mass] 26.8 pg 26.0 - 34.0 pg [facility] MCHC (RBC) [Mass/Vol] 32 g/dL 30.5 - 36.0 g/dL [facility] MCV (RBC) [Entitic vol] 83.9 fL 80.0 - 100.0 fL [facility] Monocytes (Bld) [#/Vol] 0.45 10*3/uL [facility] Monocytes/100 WBC (Bld) 6.9 % [facility] Neutrophils (Bld) [#/Vol] 3.57 10*3/uL [facility] Neutrophils/100 WBC (Bld) 55.1 % [facility] Nucleated RBC (Bld) [#/Vol] NINF [facility] Nucleated RBC/100 WBC (Bld) [Ratio] 0 % /100 WBC [facility] Platelet mean volume (Bld) [Entitic vol] 10.2 fL 9.0 - 12.7 fL [facility] Platelets (Bld) [#/Vol] 312 10*3/uL [facility] RBC (Bld) [#/Vol] 4.47 10*6/uL 3.90 - 5.20 m/uL [facility] WBC (Bld) [#/Vol] 6.48 10*3/uL [facility] Basophils (Bld) [#/Vol] 0.04 10*3/uL Normal <0.11 [facility] Comment on above: Order Comment: Speci men Type: BLOOD SPECIMEN Ordering Facility: [facility] Address: [address] [place] [address] Performed By: #### 5 5454-3 #### [facility] CLIA [id number] [address] [place] [address] [facility] Basophils/100 WBC (Bld) 0.6 % Normal [facility] Comment on above: Order Comment: Speci men Type: BLOOD SPECIMEN Ordering Facility: [facility] Address: [address] [place] [address] Performed By: #### 5 5454-3 #### [facility] CLIA [id number] [address] [place] [address] [place] Differential cell count method Nom (Bld) Auto Normal [facility] Comment on above: Order Comment: Speci men Type: BLOOD SPECIMEN Ordering Facility: [facility] Address: [address] [place] [address] Performed By: #### 5 5454-3 #### [facility] CLIA [id number] [address] [place] [address] [place] Eosinophils (Bld) [#/Vol] 0.15 10*3/uL Normal <0.46 [facility] Comment on above: Order Comment: Speci men Type: BLOOD SPECIMEN Ordering Facility: [facility] Address: [address] [place] [address] Performed By: #### 5 5454-3 #### [facility] CLIA [id number] [address] [place] [address] [place] Eosinophils/100 WBC (Bld) 2.3 % Normal [facility] Comment on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 Prediabetes PTSD (post-traumatic stress disorder) Seizures (HCC) 12/01/2017 psychogenic nonepileptical Tobacco use disorder Trichomoniasis 2018 treated PAST SURGICAL HISTORY Procedure Laterality Date COLONOSCOPY FLX DX W/COLLJ SPEC WHEN PFRMD 07/22/2020 Colonoscopy ESOPHAGOGASTRODUODENOSCOPY TRANSORAL DIAGNOSTIC 07/22/2020 EGD HYSTEROSCOPY DIAGNOSTIC 06/21/2019 for AUB, x2 LYSIS OF ADHESIONS 06/21/2019 diagnostic for chronic pelvic pain, omental adhesions to ant. abd. wall, pelvis normal, op report scanned FAMILY HISTORY Adopted: Yes Problem Relation Age of Onset Colon Cancer Maternal Grandmother Social History Tobacco Use Smoking status: Former Packs/day: 0.25 Years: 10.00 Pack years: 2.50 Types: Cigarettes Quit date: 12/20/2022 Years since quittin.0 Smokeless tobacco: Former Types: Chew Vaping Use Vaping Use: Never used Substance Use Topics Alcohol use: Yes Comment: rare occassion Drug use: No Prior to Admission medications as of 12/22/22 1556 Medication Sig Last Dose Taking ibuprofen (MOTRIN) 600 mg tablet Take 600 mg by mouth every 6 hours as needed. Taking Yes naproxen (NAPROSYN) 250 mg tablet Take 250 mg by mouth as needed. Taking Yes sertraline (ZOLOFT) 100 mg tablet Take 1.5 tablets by mouth once daily. Taking Yes topiramate (TOPAMAX) 50 mg tablet Take 1 tablet by mouth twice daily. Taking Yes tiZANidine HCl (ZANAFLEX) 4 mg capsule Take 4 mg by mouth three times daily as needed. Taking Yes albuterol HFA (VENTOLIN HFA) 90 mcg/actuation inhaler Inhale 2 Puffs as instructed every 4 hours as needed. Taking Yes myrna (more content not included)... [facility] CNOVon 11-10-2022 CNOV Office Visit (AGGENS 1) PER FARMER ([id number]) 1995 F DEF Date Time Provider Department 11/10/22 10:45 AM JUAQUIN [facility] AGGENS1 During your visit today, we recorded the following information about you: Pulse Blood pressure Weight Height 88/minute 114/79 93.9 kg 1.702 m Juaquin Walsh MD 11/10/2022 11:02 AM Signed Patient referred by: Sophie Avalos [id number] [facility] [address] HPI: This is a new patient consult from Dr. Avalos. 27-year-old female here for a 2 to 3-year history of right upper quadrant pain. This is going off and on for the last several years. It is worse after she eats fatty or greasy foods. There is no radiation. She has a history of bloating. She denies any jaundice. She is adopted does not know her family history. She was worked up and found to have an ultrasound and a HIDA scan. She did have symptoms during her HIDA scan. . PAST MEDICAL HISTORY Diagnosis Date Anemia Asthma Deafness Depression Developmental delay alcohol syndrome Hearing impaired person, right Hypoglycemia disorder alcohol syndrome. Prediabetes PTSD (post-traumatic stress disorder) Seizures (HCC) 12/01/2017 Trichomoniasis 2019 treated PAST SURGICAL HISTORY Procedure Laterality Date COLONOSCOPY FLX DX W/COLLJ SPEC WHEN PFRMD 07/22/2020 Colonoscopy ESOPHAGOGASTRODUODENOSCOPY TRANSORAL DIAGNOSTIC 07/22/2020 EGD HYSTEROSCOPY DIAGNOSTIC 06/21/2019 for AUB, LYSIS OF ADHESIONS 06/21/2019 diagnostic for chronic pelvic pain, omental adhesions to ant. abd. wall, pelvis normal, op report scanned FAMILY HISTORY Adopted: Yes Problem Relation Age of Onset Colon Cancer Maternal Grandmother Social History Tobacco Use Smoking status: Every Day Packs/day: 0.25 Types: Cigarettes Smokeless tobacco: Former Types: Chew Vaping Use Vaping Use: Never used Substance Use Topics Alcohol use: Yes Comment: occasional beer Drug use: No Current Outpatient Medications Medication Sig pscgtyffluidijd-QU-spkyTCKhk in (CAPMIST DM) 60-15-400 mg tab Take 1 tablet by mouth every 6 hours as needed. tiZANidine HCl (ZANAFLEX) 4 mg capsule Take 4 mg by mouth. blood sugar diagnostic (BLOOD GLUCOSE TEST) test strip Test blood sugar(s) 2 times daily. Dx: Type 2 DM - Controlled E11.9 Insulin: No Lancets lancets Test blood sugar(s) 4 times daily. Dx: Type 2 DM - Controlled E11.9 Insulin: No albuterol HFA (VENTOLIN HFA) 90 mcg/actuation inhaler Inhale 2 Puffs as instructed every 4 hours as needed. ferrous sulfate 325 mg (65 mg iron) tablet Take 1 tablet by mouth twice daily with meals. albuterol (PROVENTIL) 2.5 mg/3 mL (0.083 %) nebulizer solution Use 3 mL via nebulizer every 4 hours as needed for wheezing/shortness of breath. medroxyPROGESTERone (DEPO-PROVERA) 150 mg/mL injection Inject 1 mL intramuscularly every 12 weeks. folic acid 1 mg tablet Take 1 tablet by mouth once daily. sertraline (ZOLOFT) 100 mg tablet Take 1.5 tablets by mouth once daily. topiramate (TOPAMAX) 50 mg tablet Take 1 tablet by mouth twice daily. Current Facility-Administered Medications Medication Dose Route Frequency medroxyPROGESTERone 150 mg injection (DEPO-PROVERA) 150 mg INTRAMUSCULAR every 12 weeks ALLERGIES Allergen Reactions Adhesive Tape-Silic* Rash Amoxicillin Shortness of Breath Bee Venom Protein (* Swelling Carbocaine [Mepivac* Unknown Lidocaine Swelling Mushroom Anaphylaxis Nexplanon [Etonoges* Swelling Norethindrone Ac-Et* Other: See Comments Novacain [Procaine * Unknown REVIEW OF SYSTEMS: GENERAL: No weight loss, malaise or fevers GI: Negative for nausea , vomiting, diarrhea, constipation, and signs of jaundice Positive for abdominal pain RUQ PHYSICAL EXAM: BP 114/79 Pulse 88 Ht 5' 7 (1.70m) Wt 207 lb (93.9kg) SpO2 99% BMI 32.41 kg/(m2). GENERAL APPEARANCE: Well appearing, alert, in no acute distress, well-hydrated, well nourished.. ABDOMEN: Abdomen is soft. Mild tenderness in the right upper quadrant. No rebound or guarding. NEURO: Alert, oriented x3, no asterixis, speech clear and articulate, and HOWARD HEART: regular rate and rhythm, without murmur LUNGS: clear to auscultation, without rales or wheeze, good air exchange DATA: Diagnostic tests reviewed for today's visit: Most recent imaging I spent a total of 45 minutes on the date of the service which included preparing to see the patient, [id number] patient care, completing clinical documentation, obtaining and/or reviewing separately obtained history, performing a medically appropriate examination, counseling and educating the patient/family/caregiver, ordering medications, tests, or procedures, and communicating results to the patient/family/caregiver. . Greater than 50% of the direct patient contact time was spent in counseling or coordination of care. Me (more content not included)... Normal [facility] Influenza virus A and B and SARS-CoV-2 (COVID-19) Ag panel - Upper respiratory specimOrdered By: Dr. Birch on 10-17-2022 SARS-CoV-2 (COVID-19) RNA VIVIAN+probe Ql (Resp) [facility] EMG(NEURO/NI)on 09-18-2022 [facility] XR Chest PA and Lateralon IMPRESSION: No acute radiographic abnormality. Tire Layer: KACI Transcribe Date/Time: Sep 05 2022 6:42P Dictated by : PATRIA STEVE MD This examination was interpreted and the report reviewed and electronically signed by: PATRIA STEVE MD on Sep 05 2022 6:42PM [facility] [[email or web address]] DIVISION OF RADIOLOGY * * *Final Report* * * DATE OF EXAM: Sep 05 2022 9:34AM WOX 5291 - XR CHEST 2V FRONTAL/LAT / PROCEDURE REASON: Bronchitis * * * * Physician Interpretation * * * * EXAMINATION: CHEST RADIOGRAPH (2 VIEW FRONTAL & LATERAL) CLINICAL HISTORY: Bronchitis MQ: XC2_6 EXAM DATE/TIME: 09/05/2022 9:34 AM COMPARISON: 12/09/2021 RESULT: Lines, tubes, and devices: None. Lungs and pleura: No consolidation. No lung mass. No pleural effusion. No pneumothorax. Cardiomediastinal silhouette: Normal cardiomediastinal silhouette. Bones and soft tissues: Unremarkable. DIVISION OF RADIOLOGY Provider, Jaydon Lopez - 09/05/2022 * * *Final Report* * * DATE OF EXAM: Sep 05 2022 9:34AM WOX 5291 - XR CHEST 2V FRONTAL/LAT / PROCEDURE REASON: Bronchitis * * * * Physician Interpretation * * * * EXAMINATION: CHEST RADIOGRAPH (2 VIEW FRONTAL & LATERAL) CLINICAL HISTORY: Bronchitis MQ: XC2_6 EXAM DATE/TIME: 09/05/2022 9:34 AM COMPARISON: 12/09/2021 RESULT: Lines, tubes, and devices: None. Lungs and pleura: No consolidation. No lung mass. No pleural effusion. No pneumothorax. Cardiomediastinal silhouette: Normal cardiomediastinal silhouette. Bones and soft tissues: Unremarkable. IMPRESSION IMPRESSION: No acute radiographic abnormality. Tire Layer: PSCB Transcribe Date/Time: Sep 05 2022 6:42P Dictated by : PATRIA STEVE MD This examination was interpreted and the report reviewed and electronically signed by: PATRIA STEVE MD on Sep 05 2022 6:42PM EST [facility] Radiology Study observation (narrative) [facility] XR Chest PA and LateralOrder ed By: Ccf Provider on 09-05-2022 [facility] Absolute lymphocyte counton 07-31-2022 Lymphocytes Auto (Unsp spec) [#/Vol] 3.10 10*3/uL 0.83-4.51 [facility] Work Phone: Basophil percentageon 2021 Basophil percentage 0-5 SEEN /hpf 0-5 [facility] Work Phone: Basophils/100 WBC (Bld) 0.6 % 0-1 [facility] Work Phone: Bilirubin [Mass/Vol] 0.30 mg/dL 0.20-1.00 [facility] Work Phone: Comment on above: For patients on eltr ombopag therapy, use of Dimension Ophiem TBIL is not recommended. Chloride [Moles/Vol] 114 mmol/L 98-107 [facility] Work Phone: [phone] Eosinophils/100 WBC (Bld) 2.0 % 0-5 [facility] Work Phone: Glucose [Mass/Vol] 98 mg/dL 74-106 [facility] Work Phone: Neutrophils (Bld) [#/Vol] 4.7 10*3/uL 2.0-7.7 [facility] Work Phone: Neutrophils/100 WBC (Bld) 54.7 % 47-70 [facility] Work Phone: Potassium [Moles/Vol] 3.5 mmol/L 3.5-5.1 [facility] Work Phone: [phone] Protein [Mass/Vol] 7.6 g/dL 6.4-8.2 [facility] Work Phone: Sodium [Moles/Vol] 142 mmol/L 136-145 [facility] Work Phone: WBC (Bld) [#/Vol] 8.6 10*3/uL 4.4-11.0 [facility] Work Phone: Beta hCG serum qualon 2021 Beta HCG ( test) Ql Negative [facility] Work Phone: Bilirubin Test strip Ql (U)o n 07-31-2022 Bilirubin Ql (U) Negative Negative [facility] Work Phone: Blood erythrocytes count (nu mber/volume)on 07-31-2022 RBC (Bld) [#/Vol] 4.95 10*6/uL 4.2-5.4 [facility] Work Phone: Blood hemoglobin measurement (mass/volume)on 07-31-2022 Hemoglobin (Bld) [Mass/Vol] 13.8 g/dL 12.0-15.0 [facility] Work Phone: [phone] Blood lymphocytes/100 leukoc yteson 07-31-2022 Lymphocytes/100 WBC (Bld) 36.1 % 19-41 [facility] Work Phone: Blood monocytes/100 leukocyt eson 07-31-2022 Monocytes/100 WBC (Bld) 6.5 % 0-10 [facility] Work Phone: Blood platelet mean volumeon 07-31-2022 Platelet mean volume (Bld) [Entitic vol] 9.2 fL 6.2-12.0 [facility] Work Phone: Determination of erythrocyte mean corpuscular volume (MCV)on 07-31-2022 MCV (RBC) [Entitic vol] 85.5 fL 81-99 [facility] Work Phone: Hematocrit Auto (Bld) [Volum e fraction]on 07-31-2022 Hematocrit (Bld) [Volume fraction] 42.3 % 37-47 [facility] Work Phone: Ketones Test strip Ql (U)on 07-31-2022 Ketones Ql (U) Negative Negative [facility] Work Phone: Laboratory - Chemistry and C hemistry - challengeon 07-31-2022 ALP [Catalytic activity/Vol] 67 U/L 45-117 [facility] Work Phone: ALT [Catalytic activity/Vol] 17 U/L 13-56 [facility] Work Phone: CO2 [Moles/Vol] 20.0 mmol/L 21.0-32.0 [facility] Work Phone: Globulin (S) [Mass/Vol] 4.0 g/dL 2.2-4.2 [facility] Work Phone: Lipase [Catalytic activity/Vol] 155 U/L 73-393 [facility] Work Phone: Urea nitrogen/Creatinine [Mass ratio] 8.3 mg/mg 10-20 [facility] Work Phone: Laboratory - Hematology and Cell countson 07-31-2022 Erythrocyte distribution width (RBC) [Entitic vol] 41.7 fL 35.1-43.9 [facility] Work Phone: Erythrocyte distribution width (RBC) [Ratio] 13.3 % 11.6-14.6 [facility] Work Phone: Immature granulocytes/100 WBC (Bld) 0.100 % 0.0-0.9 [facility] Work Phone: Comment on above: IG% - Immature Granu locytes (promyelocytes, myelocytes and metamyelocytes) > 1% indicates that a LEFT SHIFT is Present. MCH (RBC) [Entitic mass] 27.9 pg 27.0-32.0 [facility] Work Phone: Nucleated RBC/100 WBC (Bld) [Ratio] 0 % 0-5 [facility] Work Phone: MCHC Auto (RBC) [Mass/Vol]on 07-31-2022 MCHC (RBC) [Mass/Vol] 32.6 g/dL 32-36 [facility] Work Phone: Mucus LM Ql (Urine sed)on Mucus Ql (Urine sed) 0 SEEN /hpf [facility] Work Phone: Nitrite Test strip Ql (U)on 07-31-2022 Nitrite Ql (U) Negative Negative [facility] Work Phone: No Panel Informationon 07-31 Estimated Creatinine Clearance Calc 107.48 ml/min [facility] Work Phone: Estimated GFR (MDRD) Amer 126 mL/min >60 [facility] Work Phone: Comment on above: GFR Calc Estimated GFR (MDRD) Non-Af Amer 104 mL/min >60 [facility] Work Phone: Comment on above: Non- GFR Calc Platelets bldon 07-31-2022 Platelets (Bld) [#/Vol] 327 10*3/uL 150-450 [facility] Work Phone: Protein Test strip Ql (U)on 07-31-2022 Protein Ql (U) 15 mg/dl Negative [facility] Work Phone: Serum or plasma albumin genesis urement (mass/volume)on 07-31-2022 Albumin [Mass/Vol] 3.6 g/dL 3.2-5.0 [facility] Work Phone: Serum or plasma albumin/glob ulin mass ratioon 07-31-2022 Albumin/Globulin [Mass ratio] 0.9 {ratio} 0.9-2.4 [facility] Work Phone: Serum or plasma calcium genesis urement (mass/volume)on 07-31-2022 Calcium [Mass/Vol] 9.0 mg/dL 8.5-10.1 [facility] Work Phone: Serum or plasma creatinine m easurement (mass/volume)on 07-31-2022 Creatinine [Mass/Vol] 0.72 mg/dL 0.55-1.02 [facility] Work Phone: Comment on above: The validity of the calculated GFR & GFRAA in patients over 70 years has not been determined. Clinical correlation is essential. Serum or plasma urea nitroge n measurement (mass/volume)on 07-31-2022 Urea nitrogen [Mass/Vol] 6 mg/dL 7-18 [facility] Work Phone: Squamous epithelial cells de tection in urine sediment by light microscopyon 07-31-2022 Epithelial cells.squamous LM Ql (Urine sed) 0-5 SEEN /hpf 5-10 [facility] Work Phone: Thin prep Papanicolaou smear with manual screeningon 07-31-2022 Thin prep Papanicolaou smear with manual screening 8 U/L 15-37 [facility] Work Phone: Thin prep Papanicolaou smear with manual screening 8 5-15 [facility] Work Phone: Urine blood detectionon RBC Ql (U) 10 /ul Negative [facility] Work Phone: RBC Ql (U) 0-5 SEEN /hpf 0-5 [facility] Work Phone: Urine clarityon 07-31-2022 Clarity (U) Sl. Cloudy Clear [facility] Work Phone: Urine color determinationon 07-31-2022 Color (U) Yellow Yellow [facility] Work Phone: Urine glucose detectionon Glucose Ql (U) Normal mg/dl Normal [facility] Work Phone: Urine leukocyte esterase det ection by dipstickon 07-31-2022 Leukocyte esterase Test strip Ql (U) 100 /ul Negative [facility] Work Phone: Urine pHon 07-31-2022 pH (U) 5.0 [pH] 5.0 - 8.0 [facility] Work Phone: Urine sediment bacteria coun t by microscopy (number/high power field)on 07-31-2022 Bacteria LM.HPF (Urine sed) [#/Area] 3 /[HPF] None Seen [facility] Work Phone: Urine specific gravity measu rementon 07-31-2022 Specific gravity (U) [Rel density] 1.025 1.002-1.03 0 [facility] Work Phone: Urobilinogen Auto test strip Ql (U)on 07-31-2022 Urobilinogen Ql (U) 1 mg/dl Normal [facility] Work Phone: XR Lumbar spine 3 Viewson IMPRESSION: Negative lumbosacral spine. [facility] Transcribe Date/Time: Jul 21 2022 1:02P Dictated by : JEAN-CLAUDE NARANJO MD This examination was interpreted and the report reviewed and electronically signed by: JEAN-CLAUDE NARANJO MD on Jul 21 2022 1:03PM [facility] [[email or web address]] DIVISION OF RADIOLOGY * * *Final Report* * * DATE OF EXAM: Jul 21 2022 10:49AM WOX 5228 - XR LUMBAR 3V AP/LAT/L5-S1 / PROCEDURE REASON: multiple diagnoses * * * * Physician Interpretation * * * * EXAMINATION: XR LUMBAR 3V AP/LAT/L5-S1 HISTORY: lumbar back pain x2 months. Bilateral Lower extremity weakness and numbness. TECHNIQUE: XR LUMBAR 3V AP/LAT/L5-S1 Laterality: NOT APPLICABLE Number of different views (projections): 3 M: XB_1 COMPARISON: There are no prior relevant examinations available for comparison within the [facility] Imaging Archives. RESULT: Counting reference: Lumbosacral junction. For the purposes of this report, L5-S1 is considered the last lumbar-type disc space and L4-5 is considered the level of the iliac crest. FINDINGS: Frontal, lateral and cone-down radiographs of the lumbosacral spine demonstrate five lumbar type vertebral bodies. The vertebral body heights and intervertebral disc spaces are well maintained with normal alignment. The soft tissues are unremarkable. DIVISION OF RADIOLOGY Provider, [facility] - 07/21/2022 * * *Final Report* * * DATE OF EXAM: Jul 21 2022 10:49AM WOX 5228 - XR LUMBAR 3V AP/LAT/L5-S1 / PROCEDURE REASON: multiple diagnoses * * * * Physician Interpretation * * * * EXAMINATION: XR LUMBAR 3V AP/LAT/L5-S1 HISTORY: lumbar back pain x2 months. Bilateral Lower extremity weakness and numbness. TECHNIQUE: XR LUMBAR 3V AP/LAT/L5-S1 Laterality: NOT APPLICABLE Number of different views (projections): 3 M: XB_1 COMPARISON: There are no prior relevant examinations available for comparison within the [facility] Imaging Archives. RESULT: Counting reference: Lumbosacral junction. For the purposes of this report, L5-S1 is considered the last lumbar-type disc space and L4-5 is considered the level of the iliac crest. FINDINGS: Frontal, lateral and cone-down radiographs of the lumbosacral spine demonstrate five lumbar type vertebral bodies. The vertebral body heights and intervertebral disc spaces are well maintained with normal alignment. The soft tissues are unremarkable. IMPRESSION IMPRESSION: Negative lumbosacral spine. Tire Layer: PSCB Transcribe Date/Time: Jul 21 2022 1:02P Dictated by : JEAN-CLAUDE NARANJO MD This examination was interpreted and the report reviewed and electronically signed by: JEAN-CLAUDE NARANJO MD on Jul 21 2022 1:03PM EST [facility] Radiology Study observation (narrative) [facility] XR Lumbar spine 3 ViewsOrder ed By: Ccf Provider on 07-21-2022 [facility] NM HEPATOBILIARY W EF AND/OR RXon 07-16-2022 [facility] No Panel Informationon 07-06 [facility] XR Elbow - right AP and Late ralon 06-09-2022 IMPRESSION: Radiographic findings present which can be seen in association with olecranon bursitis. Tire Layer: KACI Transcribe Date/Time: Jun 09 2022 1:11P Dictated by : JEAN-CLAUDE NARANJO MD This examination was interpreted and the report reviewed and electronically signed by: JEAN-CLAUDE NARANJO MD on Jun 09 2022 1:12PM EST ZZZ_DO_NOT_ USE_DIVISIO N OF RADIOLOGY * * *Final Report* * * DATE OF EXAM: Jun 08 2022 3:37PM WOX 5323 - XR ELBOW 2V AP/LAT RT / PROCEDURE REASON: Right elbow pain * * * * Physician Interpretation * * * * EXAMINATION: XR ELBOW 2V AP/LAT RT HISTORY: Right elbow pain posterior side of right elbow for months with numbness. Negative injury. TECHNIQUE: XR ELBOW 2V AP/LAT RT Laterality: RIGHT Number of different views (projections): 2 M: XB_1 2 Views of the right elbow show no acute osseous or articular process. Joint spaces are preserved and there is no abnormal joint fluid. Soft tissue swelling noted over the olecranon process which can be seen in olecranon bursitis. ZZZ_DO_NOT_ USE_DIVISIO N OF RADIOLOGY Provider, [facility] - 06/09/2022 * * *Final Report* * * DATE OF EXAM: Jun 08 2022 3:37PM WOX 5323 - XR ELBOW 2V AP/LAT RT / PROCEDURE REASON: Right elbow pain * * * * Physician Interpretation * * * * EXAMINATION: XR ELBOW 2V AP/LAT RT HISTORY: Right elbow pain posterior side of right elbow for months with numbness. Negative injury. TECHNIQUE: XR ELBOW 2V AP/LAT RT Laterality: RIGHT Number of different views (projections): 2 M: XB_1 2 Views of the right elbow show no acute osseous or articular process. Joint spaces are preserved and there is no abnormal joint fluid. Soft tissue swelling noted over the olecranon process which can be seen in olecranon bursitis. IMPRESSION IMPRESSION: Radiographic findings present which can be seen in association with olecranon bursitis. [facility] Transcribe Date/Time: Jun 09 2022 1:11P Dictated by : JEAN-CLAUDE NARANJO MD This examination was interpreted and the report reviewed and electronically signed by: JEAN-CLAUDE NARANJO MD on Jun 09 2022 1:12PM EST [facility] XR Elbow - right AP and Late ralOrdered By: Ccf Provider on 06-09-2022 [facility] XR Elbow - right AP and Late ralon 06-08-2022 Radiology Study observation (narrative) [facility] XR SHOULDER GENERAL 3V OR MO RE AP/TRUE AP/OTHER RIGHTon 04-30-2022 [facility] XR Shoulder - right 3 Viewso n 04-30-2022 IMPRESSION: Negative 3 views of the right shoulder. Tire Layer: KACI Transcribe Date/Time: Apr 30 2022 3:08P Dictated by : DIANE SILVA MD This examination was interpreted and the report reviewed and electronically signed by: DIANE SILVA MD on Apr 30 2022 3:10PM EST ZZZ_DO_NOT_ USE_DIVISIO N OF RADIOLOGY * * *Final Report* * * DATE OF EXAM: Apr 30 2022 3:01PM WOX 5253 - XR SHLDR >/=3V AP/RACHELE AP/OTHR RT / PROCEDURE REASON: Acute pain of right shoulder * * * * Physician Interpretation * * * * EXAM TITLE: XR SHLDR >/=3V AP/RACHELE AP/OTHR RT EXAM DATE/TIME: 04/30/2022 3:01 PM COMPARISON: X-ray shoulder on 08/31/2019. CLINICAL INDICATION/HISTORY: Shoulder pain. TECHNIQUE: AP, true AP and axillary views of the right shoulder are presented FINDINGS: No fractures or subluxations are noted. No obvious osteophyte formation. The joint spaces are well preserved. The mineralization of the bones is normal. There is no significant soft tissue swelling. InaZZ_DO_NOT_ USE_DIVISIO N OF RADIOLOGY Provider, [facility] - 04/30/2022 * * *Final Report* * * DATE OF EXAM: Apr 30 2022 3:01PM WOX 5253 - XR SHLDR >/=3V AP/RACHELE AP/OTHR RT / PROCEDURE REASON: Acute pain of right shoulder * * * * Physician Interpretation * * * * EXAM TITLE: XR SHLDR >/=3V AP/RACHELE AP/OTHR RT EXAM DATE/TIME: 04/30/2022 3:01 PM COMPARISON: X-ray shoulder on 08/31/2019. CLINICAL INDICATION/HISTORY: Shoulder pain. TECHNIQUE: AP, true AP and axillary views of the right shoulder are presented FINDINGS: No fractures or subluxations are noted. No obvious osteophyte formation. The joint spaces are well preserved. The mineralization of the bones is normal. There is no significant soft tissue swelling. IMPRESSION IMPRESSION: Negative 3 views of the right shoulder. Tire Layer: KACI Transcribe Date/Time: Apr 30 2022 3:08P Dictated by : DIANE SILVA MD This examination was interpreted and the report reviewed and electronically signed by: DIANE SILVA MD on Apr 30 2022 3:10PM EST [facility] Radiology Study observation (narrative) [facility] XR Shoulder - right 3 ViewsO rdered By: Ccf Provider on 04-30-2022 [facility] XR Chest PA and Lateralon IMPRESSION: No acute radiographic abnormality. [facility]ire [facility] Transcribe Date/Time: Dec 09 2021 2:08P Dictated by : DIANE SILVA MD This examination was interpreted and the report reviewed and electronically signed by: DIANE SILVA MD on Dec 09 2021 2:09PM [facility] [[email or web address] DIVISION OF RADIOLOGY * * *Final Report* * * DATE OF EXAM: Dec 09 2021 2:00PM WOX 5291 - XR CHEST 2V FRONTAL/LAT / PROCEDURE REASON: Suspected COVID-19 virus infection * * * * Physician Interpretation * * * * EXAMINATION: CHEST RADIOGRAPH (2 VIEW FRONTAL & LATERAL) CLINICAL HISTORY: Suspected COVID-19 virus infection MQ: XC2_6 EXAM DATE/TIME: 12/09/2021 2:00 PM COMPARISON: Chest x-ray on 09/23/2021 RESULT: Lines, tubes, and devices: None. Lungs and pleura: No consolidation. No lung mass. No pleural effusion. No pneumothorax. Cardiomediastinal silhouette: Normal cardiomediastinal silhouette. Bones and soft tissues: Unremarkable. DIVISION OF RADIOLOGY Provider, Jaydon Francisco [facility] - 12/09/2021 * * *Final Report* * * DATE OF EXAM: Dec 09 2021 2:00PM WOX 5291 - XR CHEST 2V FRONTAL/LAT / PROCEDURE REASON: Suspected COVID-19 virus infection * * * * Physician Interpretation * * * * EXAMINATION: CHEST RADIOGRAPH (2 VIEW FRONTAL & LATERAL) CLINICAL HISTORY: Suspected COVID-19 virus infection MQ: XC2_6 EXAM DATE/TIME: 12/09/2021 2:00 PM COMPARISON: Chest x-ray on 09/23/2021 RESULT: Lines, tubes, and devices: None. Lungs and pleura: No consolidation. No lung mass. No pleural effusion. No pneumothorax. Cardiomediastinal silhouette: Normal cardiomediastinal silhouette. Bones and soft tissues: Unremarkable. IMPRESSION IMPRESSION: No acute radiographic abnormality. Tire Layer: PSCB Transcribe Date/Time: Dec 09 2021 2:08P Dictated by : DIANE SILAV MD This examination was interpreted and the report reviewed and electronically signed by: DIANE SILVA MD on Dec 09 2021 2:09PM EST [facility] Radiology Study observation (narrative) [facility] XR Chest PA and LateralOrder ed By: Cc Provider on 12-09-2021 [facility] [id number] 10-07-2021 Date of Onset [id number] Invalid Interpretation Code [facility] ([place]) Comment on above: Performed By: #### C OVD19 #### Maryse Stiles [address] [place] [address] Employed in Healthcare No Normal [facility] ([place]) Comment on above: Performed By: #### C OVD19 #### Maryse Stiles [address] [place] [id number] First Test No [facility] ([place]) Comment on above: Performed By: #### C OVD19 #### Maryse Stiles [address] [place], [place] [address] Hospitalized No [facility] ([place]) Comment on above: Performed By: #### C OVD19 #### [address] [address] ICU No Normal [facility] ([place]) Comment on above: Performed By: #### C OVD19 #### [address] [address] Not [facility] ([place]) Comment on above: Performed By: #### C OVD19 #### [place] [address] Resides in Congregate Care Setting No Normal [facility] ([place] Comment on above: Performed By: #### C OVD19 #### [place] [address] SARS-CoV-2 (COVID-19) RNA VIVIAN+probe Ql (Unsp spec) Negative Normal Negative [facility] ([place]) Comment on above: Performed By: #### C OVD19 #### [place] [address] SARS-CoV-2 (COVID-19) RNA VIVIAN+probe Ql (Unsp spec) Normal [facility] ([place]) Comment on above: Result Comment: Nega tive results do not preclude SARS-CoV-2 infection and should not be used as the sole basis for patient management decisions. Negative results must be combined with clinical observations, patient history, and epidemiological information. There is a risk of false negative values resulting from improperly collected, transported, or handled specimens. There is a risk of false negative values due to the presence of sequence variants in the pathogen targets of the assay, procedural errors, amplification inhibitors in specimens, or inadequate numbers of organisms for amplification. [facility] SARS-CoV-2 Assay is a Real-Time reverse-transcriptase polymerase chain reaction (RT-PCR) based qualitative in vitro diagnostic test intended for the qualitative detection of nucleic acid from the SARS-CoV-2 in nasopharyngeal swab specimens collected from individuals suspected of COVID-19 by their healthcare provider. Testing is limited to laboratories certified under the Clinical Laboratory Improvement Amendments of 1988 (CLIA), 42 U.S.C. ?263a, to perform moderate and high complexity tests. COVID-19 Int Performed By: #### C OVD19 #### [place] [address] [place], [place] [address] Symptomatic as Defined by CDC Yes Normal [facility] ([place]) Comment on above: Performed By: #### C OVD19 #### [place] [address] [place], [place] [address] LABORATORYOrdered By: Brent Hendrix on 10-07-2021 ADMITTED TO INTENSIVE CARE UNIT FOR CONDITION OF INTEREST:FIND:PT:^PAT IENT:ORD: No (10/07/21 9:59 AM) Invalid Interpretation Code AO Auto Urine SS EMPLOYED IN A HEALTHCARE SETTING:FIND:PT:^JOHNNY ENT:ORD: No (10/07/21 9:59 AM) Invalid Interpretation Code AO Auto Urine SS FIRST TEST FOR CONDITION OF INTEREST:FIND:PT:^PAT IENT:ORD: No (10/07/21 9:59 AM) Invalid Interpretation Code AO Auto Urine SS HAS SYMPTOMS RELATED TO CONDITION OF INTEREST:FIND:PT:^PAT IENT:ORD: Yes (10/07/21 9:59 AM) Invalid Interpretation Code AO Auto Urine SS Illness or injury onset date and time [id number] Invalid Interpretation Code AO Auto Urine SS Patient was hospitalized because of this condition No (10/07/21 9:59 AM) Invalid Interpretation Code AO Auto Urine SS status Not (10/07/21 9:59 AM) Invalid Interpretation Code AO Auto Urine SS RESIDES IN A CONGREGATE CARE SETTING:FIND:PT:^JOHNNY ENT:ORD: No (10/07/21 9:59 AM) Invalid Interpretation Code AO Auto Urine SS SARS-CoV-2 (COVID-19) RNA VIVIAN+probe Ql (Resp) Negative (10/07/21 9:59 AM) Invalid Interpretation Code Negative AO Auto Urine SS SARS-CoV-2 (COVID-19) RNA VIVIAN+probe Ql (Unsp spec) Negative results do not preclude SARS-CoV-2 infection and should not be used as the sole basis for patient management decisions. Negative results must be combined with clinical observations, patient history, and epidemiological information.There is a risk of false negative values resulting from improperly collected, transported, or handled specimens.There is a risk of false negative values due to the presence of sequence variants in the pathogen targets of the assay, procedural errors, amplification inhibitors in specimens, or inadequate numbers of organisms for amplification.HANNAH SARS-CoV-2 Assay is a Real-Time reverse-transcriptase polymerase chain reaction (RT-PCR) based qualitative in vitro diagnostic test intended for the qualitative detection of nucleic acid from the SARS-CoV-2 in nasopharyngeal swab specimens collected from individuals suspected of COVID-19 by their healthcare provider. Testing is limited to laboratories certified under the Clinical Laboratory Improvement Amendments of 1988 (CLIA), 42 U.S.C. 263a, to perform moderate and high complexity tests. Invalid Interpretation Code AO Auto Urine SS IO UA (automated w/o microsc opy)on 09-30-2021 Protein (U) [Mass/Vol] Negative [facility] [place] Work Phone: IO UA (automated w/o microscopy) Negative [facility] [place] Work Phone: IO UA (automated w/o microscopy) (++)moderate - 40 [facility] [employer] Work Phone: TRAFFIC SIGNAL TECHNICIAN - Post Opon TRAFFIC SIGNAL TECHNICIAN - Post Op Diagnoses/Problems Assessed Postoperative examination (V67.00) (Z09) Breakthrough bleeding on Depo-Provera (626.6) (N92.1) Orders Encounter for confirmation of test result with physical examination COMPLETE BLOOD COUNT ANEMIA PANEL WITH REFLEX,; Status:Canceled; Cult, Urine; Status:Canceled; GC + Chlamydia By Amplified Detection; Status:Canceled; Hemoglobin A1C; Status:Canceled; Hemoglobin Identification; Status:Canceled; Hepatitis B Surface Antigen; Status:Canceled; HIV 1/2 ANTIGEN/ANTIBODY SCREEN WITH REFLEX TO CONFIRMATION; Status:Canceled; Rubella IgG Antibody; Status:Canceled; SYPHILIS SCREENING WITH REFLEX; Status:Canceled; Type and Screen; Status:Canceled; Irregular menses HCG, Serum - Qualitative; Status:Canceled; Postoperative examination IO UA (automated w/o microscopy); Status:Resulted - Requires Verification,Retrospective Authorization; Done: 30Sep2021 02:57PM Patient Discussion/Summary Patient status post diagnostic laparoscopy with coagulation endometriosis and aspiration of endometrioma. Doing well today. No pain. Has been having some irregular bleeding over the last week or so. Due for Depo-Provera in approximately 2 to 3 weeks. At this point we will plan on observing. Will attempt suppression of menses as treatment for endometriosis. Reviewed findings with patient along with possible management plans. Patient at this point is agreeable to continuing the Depo-Provera will call for any further bleeding. Return to office for Depo-Provera. Urinalysis negative. Chief Complaint patient here for post op visit, last pap 05/06/21 wnl, no hospital pharmacy director needed Adult Risk ScreeningThere are no spiritual/cultural practices/values/needs that are important to know Initial Fall Risk Screening: PER has not fallen in the last 6 months. Pain Scale: On a scale of 0 to 10, the patient rates the pain at 2. History of Present Illness Patient here for postoperative exam. Status post diagnostic laparoscopy with aspiration of ovarian endometrioma. Coagulation of endometriosis. Patient is doing well but has been having some occasional vaginal bleeding heavy up sometimes mostly spotting. No abdominal pain. No nausea vomiting fever chills no GI or complaints Review of Systems Constitutional: no fever, no chills, no recent weight gain, no recent weight loss and no fatigue. Eyes: no eye pain, no vision problems and no dryness of the eyes. ENT: no hearing loss, no nosebleeds and no sinus congestion. Cardiovascular: no chest pain, no palpitations and no orthopnea. Respiratory: no shortness of breath, no cough and no wheezing. Gastrointestinal: no abdominal pain, no constipation, no nausea, no diarrhea and no vomiting. Genitourinary: no dysuria, no urinary incontinence, no vaginal dryness, no vaginal itching, no dyspareunia, no pelvic pain, no dysmenorrhea, no sexual problems, no change in urinary frequency, no vaginal discharge, no unexplained vaginal bleeding and no lesion/sore. Musculoskeletal: no back pain, no joint swelling and no leg edema. Integumentary: no rashes, no skin lesions, no nipple discharge, no breast pain and no breast lump. Neurological: no headache, no numbness and no dizziness. Psychiatric: no sleep disturbances, no anxiety and no depression. Endocrine: no hot flashes, no loss of hair and no hirsutism. Hematologic/Lymphatic: no swollen glands, no tendency for easy bleeding and no tendency for easy bruising. All other systems have been reviewed and are negative for complaint. 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) Follow-up exam (V67.9) (Z09) Gastroesophageal reflux disease, esophagitis presence not specified (530.81) (K21.9) Irregular menses (626.4) (N92.6) Irritable bowel syndrome, unspecified type (564.1) (K58.9) Loose stools (787.7) (R19.5) Low grade squamous intraepithelial lesion on cytologic smear of cervix (LGSIL) (795.03) (R87.612) Lower abdominal pain (789.09) (R10.30) Negative test (V72.41) (Z32.02) NSAID long-term use (V58.64) (Z79.1) Ovarian mass, right (620.8) (N83.8) Pap smear, as part of routine gynecological examination (V76.2) (Z01.419) Postoperative examination (V67.00) (Z09) Urinary incontinence, unspecified type (788.30) (R32) Urine test negative (V72.41) (Z32.02) Vaginal itching (698.1) (N89.8) Past Medical History History of Encounter for management and injection of depo-Provera (V25.49) (Z30.42) Resolved Date: 18 Feb 2021 History of (more content not included)... [facility] [employer] Tobacco Screening.on 021 Fall risk assessment a) No falls within the last year [facility] [place] Work Phone: Last menstrual period start date Depo provera [facility] [place] Work Phone: Tobacco use status CPHS a) Yes [facility] [place] Work Phone: Tobacco Screening. Yes [facility] [place] Work Phone: XR Chest PA and Lateralon IMPRESSION: No acute radiographic abnormality. Tire Layer: PSCB Transcribe Date/Time: Sep 23 2021 3:11P Dictated by : DIANA SALINAS DO This examination was interpreted and the report reviewed and electronically signed by: DIANA SALINAS DO on Sep 23 2021 3:13PM [facility] [[email or web address]] DIVISION OF RADIOLOGY * * *Final Report* * * DATE OF EXAM: Sep 23 2021 3:08PM WOX [id number] - XR CHEST 2V FRONTAL/LAT / PROCEDURE REASON: multiple diagnoses * * * * Physician Interpretation * * * * EXAMINATION: CHEST RADIOGRAPH (2 VIEW FRONTAL & LATERAL) PATIENT/TECHNOLOGIST PROVIDED HISTORY: sore throat, cough and congestion for 2 days CLINICAL INFORMATION: 26 years old Female with SOB (shortness of breath). Mild intermittent asthma with acute exacerbation. MQ: XC2_6 EXAM DATE/TIME: 09/23/2021 3:08 PM COMPARISON: 06/22/2019 RESULT: Lines, tubes, and devices: None. Lungs and pleura: No focal consolidation or edema. No pleural effusion or pneumothorax. Cardiomediastinal silhouette: Normal cardiomediastinal silhouette. Bones and soft tissues: Remote fracture deformity of the LEFT first rib. DIVISION OF RADIOLOGY Provider, [facility] - 09/23/2021 * * *Final Report* * * DATE OF EXAM: Sep 23 2021 3:08PM WOX [id number] - XR CHEST 2V FRONTAL/LAT / PROCEDURE REASON: multiple diagnoses * * * * Physician Interpretation * * * * EXAMINATION: CHEST RADIOGRAPH (2 VIEW FRONTAL & LATERAL) PATIENT/TECHNOLOGIST PROVIDED HISTORY: sore throat, cough and congestion for 2 days CLINICAL INFORMATION: 26 years old Female with SOB (shortness of breath). Mild intermittent asthma with acute exacerbation. MQ: XC2_6 EXAM DATE/TIME: 09/23/2021 3:08 PM COMPARISON: 06/22/2019 RESULT: Lines, tubes, and devices: None. Lungs and pleura: No focal consolidation or edema. No pleural effusion or pneumothorax. Cardiomediastinal silhouette: Normal cardiomediastinal silhouette. Bones and soft tissues: Remote fracture deformity of the LEFT first rib. IMPRESSION IMPRESSION: No acute radiographic abnormality. Tire Layer: PSCB Transcribe Date/Time: Sep 23 2021 3:11P Dictated by : DIANA SALINAS DO This examination was interpreted and the report reviewed and electronically signed by: DIANA SALINAS DO on Sep 23 2021 3:13PM EST [facility] Radiology Study observation (narrative) [facility] XR Chest PA and LateralOrder ed By: [facility] Provider on 09-23-2021 [facility] GLUCOSE-POCTon 09-03-2021 Glucose [Mass/Vol] 103 mg/dL High 74 - 99 [facility] Comment on above: Performed By: #### G MERARY #### [place] [address] Laboratory - Chemistry and C hemistry - challengeon 09-03-2021 Glucose [Mass/Vol] 103 mg/dL above high threshold 74 - 99 [facility] Work Phone: Operative Reports - [facility] 09-03-2021 Operative Reports - [place] [id number] Patient Name: PER FARMER : 1995 Date of Service: 09/03/2021 Patient Location: [place] [address] Patient Type: O Surgeon: Fred Murphy MD Report Type: Operative Reports PREOPERATIVE DIAGNOSIS: Pelvic pain. POSTOPERATIVE DIAGNOSES: 1. Pelvic pain. 2. Endometriosis of pelvis. 3. Endometrioma, right ovary OPERATIONS/PROCEDURES: 1. Diagnostic laparoscopy with fulguration of endometriosis. 2. Aspiration of right ovarian cyst. SURGEON: Fred Murphy MD SYSTEM SAFETY ENGINEER(S): ANESTHESIA: General. PROCEDURE IN DETAIL: Under satisfactory general anesthesia, the patient was placed in a modified dorsal lithotomy position. A combined abdominal, vaginal, and perineal prep was carried out. The patient was draped in usual manner. Alvarez catheter was inserted and allowed to continuous drainage. An HUMI cannula was placed in the uterus to be used as a manipulator. An infraumbilical incision was then made following injection with local. The Veress needle was passed, and the abdomen was insufflated with approximately 3 L of carbon dioxide gas. Veress needle was withdrawn. Laparoscopic trocar was placed. Examination of the upper abdomen showed a normal gallbladder. Liver appeared normal. Some periappendiceal adhesions were noted from prior appendectomy. Examination of the pelvis showed the uterus to be in normal size. Left adnexa showed over to be slightly elongated, but the tube and ovary were clear. Cul-de-sac showed several spots of endometriosis. Examination of the right ovary initially was unremarkable; however, it was noted the ovary was adherent to the infundibulopelvic ligament. This was bluntly taken off and an endometrium was noted with about 30 cc of old dark blood removed. Irrigation was subsequently carried out. After placement of 2 trocars, one on the right and left lower quadrant, the cyst was irrigated out. Excellent hemostasis was noted. At this point, bleeding was noted from one of the trocars in the right lower quadrant. The trocar was removed under direct visualization. Suture was passed using a 2-0 Vicryl. Excellent hemostasis was noted after this. At this point, no further bleeding was noted. Irrigation was carried out of all blood and clots. Operative sites were reviewed. No bleeding was noted. Instruments were withdrawn. Gas was allowed to escape. Skin incisions were closed with subcuticular 4-0 Vicryl stitch. The fascia was closed with a [id number] 2-0 Vicryl stitch. Dermabond was placed. Fred Murphy MD EST TT: 09/03/2021 12:56 PM EST DICTATION NUMBER: [id number] [facility] JOB NUMBER: [id number] CC: Sophie Avalos Electronic Signatures: Fred Murphy) (Signed on 04-Sep-2021 09:42) Authored Unsigned, Draft (SYS GENERATED) (Entered on 03-Sep-2021 12:56) Entered Last Updated: 04-Sep-2021 09:42 by Fred Murphy) [facility]ciliation[facility] 09-03 Order Reconciliation Page 1 Discharge Reconciliation Document Reconciliation Type: Discharge requested on behalf of Yareli Mckay (Physician Branch Manager) done by Yareli Mckay (PAC) Discharge - Reconciliation: 03-Sep-2021 11:34 by: Yareli Mckay (PAC) Home Medications EnteredHOME MEDICATIONS AT DISCHARGE DateReconciliation Comment/ Additional Information albuterol 2.5 mg/3 mL (0.083%) inhalation solution 3 milliliter(s) inhaled every 6 hours, As Needed 27-Aug-2021 14:38 albuterol 2.5 mg/3 mL (0.083%) inhalation solution 3 milliliter(s) inhaled every 6 hours, As Needed 27-Aug-2021 14:38 albuterol 2.5 mg/3 mL (0.083%) inhalation solution is continued as albuterol 2.5 mg/3 mL (0.083%) inhalation solution ferrous sulfate 325 mg (65 mg elemental iron) oral tablet orally 2 times a day 21-Jun-2019 10:12 ferrous sulfate 325 mg (65 mg elemental iron) oral tablet orally 2 times a day 21-Jun-2019 10:12 ferrous sulfate 325 mg (65 mg elemental iron) oral tablet is continued as ferrous sulfate 325 mg (65 mg elemental iron) oral tablet omeprazole 40 mg oral delayed release capsule 1 cap(s) orally once a day 21-Jun-2019 10:10 omeprazole 40 mg oral delayed release capsule 1 cap(s) orally once a day 21-Jun-2019 10:10 omeprazole 40 mg oral delayed release capsule is continued as omeprazole 40 mg oral delayed release capsule sertraline 100 mg oral tablet 1 tab(s) orally once a day 21-Jun-2019 10:09 sertraline 100 mg oral tablet 1 tab(s) orally once a day 21-Jun-2019 10:09 sertraline 100 mg oral tablet is continued as sertraline 100 mg oral tablet Topamax 50 mg oral tablet 1 tab(s) orally 2 times a day 27-Aug-2021 14:37 Topamax 50 mg oral tablet 1 tab(s) orally 2 times a day 27-Aug-2021 14:37 Topamax 50 mg oral tablet is continued as Topamax 50 mg oral tablet Current OrdersDateHOME MEDICATIONS AT DISCHARGE DateReconciliation Comment/ Additional Information HYDROmorphone Injectable (DILAUDID)DOSE = 0.4 mg IntraVenous Push Every 5 Minutes, PRN Pain - Severe (7-10) (PACU)Clinician Notes: Hanane-operative order ONLYMax total of 4 mg regardless of dose. 02-Sep-2021 08:57 HYDROmorphone Injectable is not required Lactated Ringers Infusion IV Bag Volume = 1,000 mL Run at: 100 mL/hr IntraVenous Clinician Notes: Hanane-operative order ONLY 02-Sep-2021 08:57 Lactated Ringers Infusion is not required Ondansetron Injectable (ZOFRAN)DOSE = 4 mg IntraVenous Push Once, PRN PONV, first lineClinician Notes: Hanane-operative order ONLY 02-Sep-2021 08:57 Ondansetron Injectable is not required Home Medications Added During Discharge Reconciliation Activity as Tolerated 03-Sep-2021, Routine, Assistance Level: None, Restrictions: None, Limit your activities and rest today. Additional Patient Instructions Do not consume alcoholic beverages for 24 hours. Additional Patient Instructions Do not engage in sports, heavy work or lifting. Additional Patient Instructions Do not make important decisions or sign any important documents for the next 24 hours. Additional Patient Instructions Do not smoke for 24 hours. Additional Patient Instructions It is recommended that a responsible adult remain with you for the next 24 hours as you may be light headed/dizzy. Additional Patient Instructions Keep Surgical incision dry and clean. Additional Patient Instructions You have blue glue over the incision. Do not rub the incision. The glue to come off on its on in 10-14 days. Prescription of Oxycodone given to take for moderate to severe pain. Prescription of ibuprofen given for mild- moderate pain. Call Physician For: excessive bleeding (slow general oozing that completely soaks dressing or fresh bright red bleeding) or bleeding that will not stop. Apply pressure to the area and elevate. Call Physician For: inability to urinate every 8-12 hours and your bladder becomes too full or painful. Call Physician For: persistant nausea and/or vomiting Over 24 hours Call Physician For: signs and sypmtoms of infection Increased redness or swelling at incision site, increased pain/tenderness at surgical site, increased temperature greater than 100 degress, increasing and/or progressive drainage from surgical site, and/or unusual odor from surgical site. Diet Regular Special Instructions: Liquids and light meals today, regular diet tomorrow. Discharge Discharge Diagnosis< R10.9 Combined abdominal and pelvic pain Discharge Provider, Fred Murphy Discharge Disposition : .Home Condition at Discharge: Satisfactory Discharge Communication Instructions for Nursing Only: Remove IV prior to discharge from hospital. Do not remove any midline, if present, without an order from the provider. Discharge Instructions - PHR After your discharge from the hospital, two Summary of Care Documents will be available online in your Personal Health Record (PHR). 1.Consolidated-Clinical Document Architecture (C-CDA) Patient Discharge (more content not included)... [facility] Patient Profile - Preop v2on 09-03-2021 Patient Profile - Preop v2 Profile: Initial Info: How to be AddressedAmber(1) Spoken Language PreferredEnglish (1) Stated Reason for Admissionlaparoscopy Primary Contact Name and NumberDionisio Farmer Patient Belongingspatient educated regarding responsibility for personal items Medications Brought to Hospitalno General Health: Weight in kg84.1 kilogram(s) Weight in icg560.4 pound(s) Weight Methodstated Height in feet5 feet Height in inches5 inch(es) Height in cm165.1 centimeter(s) Height Methodstated BMI (kg/m2)30.853 square meter Patient or Family Member Reaction to Anesthesiano previous reaction Blood Avoidance/Restrictionsnone Health Mgmt: Symptoms/Conditions Managed at Homeendocrine; neurological; respiratory; behavioral health; hematologic; gastrointestinal; musculoskeletal Are You no Are You Currently Breastfeedingno Behavioral Health Symptoms/Conditionsanxiety; depression Behavioral Management Strategiesmedication therapy Endocrine Symptoms/Conditionsdiabetes Gastrointestinal Symptoms/ConditionsIBS Gastrointestinal Management Strategiesmedication therapy Hematologic Symptoms/Conditionsanemia Hematologic Management Strategiesmedication therapy Musculoskeletal Symptoms/Conditionsosteoarth ritis Neurological Symptoms/Conditionsseizures; migraines Neurological Management Strategiesmedication therapy Respiratory Symptoms/Conditionsasthma Barriers to Managing Healthnone Relationship/Environ: Living Arrangementsapartment Lives Withalone Resource/Environmental Concernsnone Substance: Smoking Statuslight user (uses <10 cig/day, OR <0.5 ppd, OR 1 can/pouch loose leaf tobacco per week, OR <0.5 vape pods per day) Tobacco Cessation Education (provide if tobacco use within the last 12 mos) patient declined Alcohol Useoccasionally Drug Usedenies Risk Screens: COVID-19 Screening Completedno exposure or symptoms Travel or ExposureNO travel to International locations in the past 30 days Advance Directive/DNRno During the past month, have you often been bothered by feeling down, depressed or hopelessno During the past month, have you often had little interest or pleasure in doing thingsno Have you had any thoughts of harming anyone elseno Risk Screen Not Applicable/Able to Answerable to be screened In the Past Month: Have you wished you were or could go to sleep and not wake upno In the Past Month: Have you had any actual thoughts of killing yourselfno Lifetime: Have you ever done, started to do, or prepared to do anything to end your lifeno Are you or have you been threatened or abused physically,emotionally or sexually abused by anyoneno Do you feel UNSAFE going back to the place you are livingno Patient is Able to be Assessed for Learningyes Factors Influencing Readiness to Learnacuteness of illness Factors that Impact Ability to Learnhearing problems, visual problems Devices/Methods Used to Communicateglasses, hearing aids Learning Preferencesverbal instruction; written material Cultural Considerationsnone Developmental Considerationsnone Buddhist Considerationsnone Other learner availableno Falls RiskPatient location auto qualifies him/her for HIGH RISK. Are there any cultural, spiritual, religion practices/values/needs that are important for us to knowno Pain Scalenumerical 0-10 Pain Scale Educationteaching provided Current Pain Level0 = None Acceptable Pain Level0 = None Chronic Painyes Chronic Lower Extremity pain locationknee, bilateral Information Review: Allergies, Home Meds and Significant Events have been Reviewed and Verified with Patient/Familyyes Allergy, Intolerance, Adverse Event: Allergies: lidocaine: Drug, Anaphylaxis, Active Bee Stings: Environment, Anaphylaxis, Active Mushrooms: Food, Hives/Urticaria, Active Electronic Signatures: Cecil Louis) (Signed 03-Sep-2021 09:46) Authored: Initial Info, General Health, Health Mgmt, Relationship/Environ, Substance, Risk Screens, Additional Information Last Updated: 03-Sep-2021 09:46 by Cecil Louis (EDNA) References: 1. Data Referenced From Patient Profile - Preop v2 21-Jun-2019 10:06 [facility] Preop Checkliston 09-03-2021 Preop Checklist Preop Checklist: Preop Checklist: Arrival [id number] Arrival Time09:28 Procedure TypeLaparoscopy Diagnostic Temperature C36.9 degrees C Temperature F98.4 degrees F Heart Rate79 beats per minute Respiratory Rate20 breath per minute Blood Pressure Ecwqojgz176 mm/Hg Blood Pressure Nvveozatc88 mm/Hg NPO [id number] 22:00 ID Band Onyes Allergy Bandyes Consent Signedyes H&P Completeyes Anesthesia Assessment Completedyes EKG Performednot ordered Chest X-Ray Performednot ordered HCG Urine TestComplete negative Chlorhexadine Bath Givennot applicable Nasal Antiseptic Appliednot applicable Hair Washednot applicable Hat placed on infant prior to transportnot applicable SCD's Appliedsent to OR PRASAD Hose Appliednot ordered Denturesnot applicable Hearing Aidssent to PACU Valuables Securedplaced in locker Glasses / Contactssent to PACU Bowel Prepno Cardiovascular Assessment: Apicalregular Radial Pulsespalpable Pedal Pulsespalpable Extremitieswarm Respiratory Assessment: Respirationsunlabored Air Exchangegood, equal Neurological Assessment: Level of Consciousnessalert, oriented Mobilitymoves all extremities Able to Express Selfyes Age Appropriateyes Emotional Statuscalm Skin Assessment: Skin Site(s) with Current Compromisenone Preop Education: Surgical Site Infection Preventionyes Pain Scales and Managementyes Language / Communication: Language / CommunicationEnglish Electronic Signatures: Cecil Louis) (Signed 03-Sep-2021 09:50) Authored: Preop Checklist Last Updated: 03-Sep-2021 09:50 by Cecil Louis (EDNA) Normal [facility] CORONAVIRUS 2019, SCREEN ASY MPTOMATICon 09-02-2021 SARS-CoV-2 (COVID-19) RNA VIVIAN+probe Ql (Unsp spec) Not detected Normal Not Detected [facility] Comment on above: Result Comment: . This assay is designed to detect the N, ORF1ab and/or S genes of SARS-CoV-2 via nucleic acid amplification. A Negative (NOT DETECTED) result does not preclude 2019-nCoV infection since the adequacy of sample collection and/or low viral burden may result in presence of viral nucleic acids below the clinical sensitivity of this test method. Negative (NOT DETECTED) result should not be used as the sole basis for treatment or other patient management decisions. Rather negative results should be combined with clinical observations, patient history, and epidemiological information to make patient management decisions. Fact sheet for providers: https://www.fda.gov/media/060859/download Fact sheet for patients: https://www.fda.gov/media/330674/download This test has received FDA Emergency Use Authorization (EUA) and has been verified by [facility] ([facility]). This test is only authorized for the duration of time that circumstances exist to justify the authorization of the emergency use of in vitro diagnostic tests for the detection of SARS-CoV-2 virus and/or diagnosis of COVID-19 infection under section 564(b)(1) of the Act, 21 U.S.C. 360bbb-3(b)(1), unless the authorization is terminated or revoked sooner. [facility] is certified under CLIA-88 as qualified to perform high complexity testing. Testing is performed in the [facility] laboratories located at [address] [place] [address]. Performed By: #### C OVSC #### [place] [address] Covid 19 Resultson 1 SARS-CoV-2 (COVID-19) RNA VIVIAN+probe Ql (Unsp spec) NEGATIVE COVID-19 Test Coronaviruses are common world-wide and are the cause of many common colds. SARS-COV2 is a new coronavirus that began circulating worldwide in 2019 so we are calling it COVID-19. It has been estimated that four out of five patients with COVID-19 will recover at home without the need for medical attention. Symptoms of COVID-19 may include cough, fever, shortness of breath, loss of taste or smell and other flu-like symptoms including chills, sore muscles, sore throat, and headache. Severe illness is more common in older people and people with other health problems such as high blood pressure, obesity, and immune system problems. If the test is positive, you have COVID-19. You will be contacted by the ordering physicians office and instructed to remain on home isolation, in accordance with CDC guidelines. You may also be contacted by the [facility] to see if any of your close contacts may have been exposed to the virus and need to quarantine. If the test is negative, you likely do not have COVID-19 at this time, but you still may have a different illness that can spread to other people (like Influenza, or the Flu) and could still be at risk for getting COVID-19. We recommend that you stay away from other people to limit the spread of illness until your symptoms are improving and you are fever-free for 24 hours without the use of fever lowering medications such as acetaminophen or ibuprofen. No test is 100% accurate so if you are still concerned you may have COVID-19, talk to your doctor about the need to continue to stay away from others. Medicines Unless your provider told you not to use the following: Acetaminophen (Tylenol and others) is generally safe. Anti-inflammatory medications, such as Ibuprofen (Advil or Motrin) or Naproxen (Aleve) can also be used. Gefw-wfu-cpbhyhz cough and cold medicines can be used according to the instructions on the package. Some akel-xoy-kvjmgza medicines also contain acetaminophen. Make sure you are not taking more than your recommended dose. For those not hospitalized, there is no specific treatment available for this illness. Antibiotics do not treat Coronaviruses. Follow-Up Follow up with your doctor by scheduling a virtual visit or consider follow-up at one of our urgent care fever clinics. If you are having difficulty breathing, or are very weak and having difficulty standing, this is a medical emergency. Call 911 or have someone take you to the nearest emergency room immediately. If possible, wear a facemask. Additional guidance from the CDC for patients who tested POSITIVE for COVID-19 How to isolate: Isolate yourself in a specific room at home and limit your contact with others. Use a separate bathroom from other members of the household, when possible. Leave home only to get essential medical care. Do not go to work, school or public areas. Avoid using public transportation, ride-sharing, or taxis. Restrict contact with pets and other animals. If you must care for your pet or be around animals while you are sick, wash your hands before and after your interaction and wear a facemask. Make sure that shared spaces in the home have good airflow, such as by an air conditioner or an opened window, weather permitting. Personal Hygiene Procedures: Wear a face mask when in the same room as other people or pets. If a face mask interferes with your breathing, others should wear a mask when sharing space with you. Frequent hand-washing: wash your hands with soap and water for at least 20 seconds. If soap and water are not available, use alcohol-based hand lab clerk. Avoid touching your eyes, nose, and mouth with unwashed hands. Household Hygiene Procedures: Avoid sharing personal household items such as dishes, glassware, cups, eating utensils, towels or bedding with other people or pets in your home. After use, these items should be washed with soap and hot water. Disinfect all high-touch surfaces every day with antibacterial cleaning solutions such as Lysol wipes, bleach, cleansers, etc. High-touch surfaces include tabletops, doorknobs, bathroom fixtures, toilets, phones, keyboards, tablets and bedside tables. Immediately clean any surfaces that may have blood, poop or body fluids on them, using antibacterial cleaning solutions such as Lysol wipes, bleach, cleansers, etc. If clothing or bedding come into contact with blood, poop or body fluids, they should be washed immediately. Follow the directions on the laundry detergent and clothing labels but hot water is recommended when possible. Stopping home isolation precautions: If possible, consult your doctor before stopping home isolation precautions. According to the CDC, you can discontinue home isolation precautions when you have met both of these criteria: Your fever and respiratory symptoms have been gone for 24 willie (more content not included)... Normal [facility] CORONAVIRUS 2019, SCREEN ASY MPTOMATICon 09-01-2021 Lab Specimen Source Nasal, Nasopharyngeal Normal [facility] Comment on above: Performed By: #### C OVSC #### [facility] [address] [place] [address] Coronavirus 2019 RNA by PCR, Screening Asymptomticon 09-01-2021 Coronavirus 2019 RNA by PCR, Screening Asymptomtic Not detected Normal See Below -Thuy nunez Work Phone: Comment on above: SOURCE: Nasal, Nasop haryngealReference Range: Not Detected.This assay is designed to detect the N, ORF1ab and/or S genes of SARS-CoV-2 via nucleic acid amplification. A Negative (NOT DETECTED) result does not preclude 2019-nCoV infection since the adequacy of sample collection and/or low viral burden may result in presence of viral nucleic acids below the clinical sensitivity of this test method. Negative (NOT DETECTED) result should not be used as the sole basis for treatment or other patient management decisions. Rather negative results should be combined with clinical observations, patient history, and epidemiological information to make patient management decisions.Fact sheet for providers: https://www.fda.gov/media/491859/downloadFact sheet for patients: https://www.fda.gov/media/657675/downloadThis test has received FDA Emergency Use Authorization (EUA) and has been verified by [facility] ([facility]). This test is only authorized for the duration of time that circumstances exist to justify the authorization of the emergency use of in vitro diagnostic tests for the detection of SARS-CoV-2 virus and/or diagnosis of COVID-19 infection under section 564(b)(1) of the Act, 21 U.S.C. 360bbb-3(b)(1), unless the authorization is terminated or revoked sooner. [facility] is certified under CLIA-88 as qualified to perform high complexity testing. Testing is performed in the [facility] laboratories located at [id number] [place] [address]. BASIC METABOLIC PANELon 09-2 Anion gap [Moles/Vol] 16 mmol/L Normal 10 - 20 [facility] Comment on above: Performed By: #### B MP #### [facility] [address] [place] [address] Calcium [Mass/Vol] 9.5 mg/dL Normal 8.6 - 10.3 [facility] Comment on above: Performed By: #### B MP #### [address] [address] Chloride [Moles/Vol] 108 mmol/L High 98 - 107 [facility] Comment on above: Performed By: #### B MP #### [address] [address] Creatinine [Mass/Vol] 0.85 mg/dL Normal 0.50 - 1.05 [facility] Comment on above: Performed By: #### B MP #### [address] [address] GFR- AM. >60 Normal >60 [facility] Comment on above: Result Comment: CALC ULATIONS OF ESTIMATED GFR ARE PERFORMED USING THE MDRD STUDY EQUATION FOR THE IDMS-TRACEABLE CREATININE METHODS. CLIN CHEM 2007;53:766-72 Performed By: #### B MP #### [address] [address] GFR-NON AM. >60 Normal >60 [facility] Comment on above: Performed By: #### B MP #### [address] [address] Glucose [Mass/Vol] 72 mg/dL Low 74 - 99 [facility] Comment on above: Performed By: #### B MP #### [address] [address] HCO3 (Bld) [Moles/Vol] 18 mmol/L Low 21 - 32 [facility] Comment on above: Performed By: #### B MP #### [address] [address] Potassium [Moles/Vol] 3.3 mmol/L Low 3.5 - 5.3 [facility] Comment on above: Performed By: #### B MP #### [address] [address] Sodium [Moles/Vol] 139 mmol/L Normal 136 - 145 [facility] Comment on above: Performed By: #### B MP #### [address] [address] Urea nitrogen [Mass/Vol] 11 mg/dL Normal 6 - 23 [facility] Comment on above: Performed By: #### B MP #### [address] [address] CBCon 08-27-2021 Erythrocyte distribution width (RBC) [Ratio] 14.6 % High 11.5 - 14.5 [facility] Comment on above: Performed By: #### C BC #### [address] [address] Hematocrit (Bld) [Volume fraction] 39.1 % Normal 36.0 - 46.0 [facility] Comment on above: Performed By: #### C BC #### [address] [address] Hemoglobin (Bld) [Mass/Vol] 13.3 g/dL Normal 12.0 - 16.0 [facility] Comment on above: Performed By: #### C BC #### [address] [address] MCHC (RBC) [Mass/Vol] 34.0 g/dL Normal 32.0 - 36.0 [facility] Comment on above: Performed By: #### C BC #### [address] [address] MCV (RBC) [Entitic vol] 82 fL Normal 80 - 100 [facility] Comment on above: Performed By: #### C BC #### [address] [address] Platelets (Bld) [#/Vol] 348 10*3/uL Normal 150 - 450 [facility] Comment on above: Performed By: #### C BC #### [address] [address] RBC 4.78 x10E12/L Normal 4.00 - 5.20 [facility] Comment on above: Performed By: #### C BC #### [address] [address] WBC (Bld) [#/Vol] 9.7 10*3/uL Normal 4.4 - 11.3 [facility] Comment on above: Performed By: #### C BC #### [facility] [address] [place] [address] HCG, Beta Quantitativeon HCG.beta subunit Qn m[IU]/mL MG-CLIENT RELATIONSHIP MANAGER-Tw [facility] Work Phone: Comment on above: Low-level positive H CG results can be seen in early , in hanane- or post-menopausal females due to normal pituitary HCG production, or with analytic interference. Repeat testing in 48-72 hours can aid in assessing for as results should double in this time period. FSH measurement is recommended in hanane- or post-menopausal females as concurrent elevation of FSH can support pituitary production as the source of the HCG elevation.. Total HCG measurement is performed using the [employer] [place] Access Immunoassay which detects intact HCG and free beta HCG subunit. This test is not indicated for use as a tumor marker. HCG testing is performed using a different test methodology at [facility] than other [facility]. Direct result comparison should only be made within the same method. REF VALUESNON FEMALE <5MALES <5 HCG,BETA-QUANTITATIVEon - HCG,BETA-QUANTITATIVE <2 Normal [facility] Comment on above: Result Comment: Low- level positive HCG results can be seen in early , in hanane- or post-menopausal females due to normal pituitary HCG production, or with analytic interference. Repeat testing in 48-72 hours can aid in assessing for as results should double in this time period. FSH measurement is recommended in hanane- or post-menopausal females as concurrent elevation of FSH can support pituitary production as the source of the HCG elevation. . Total HCG measurement is performed using the [employer] Access Immunoassay which detects intact HCG and free beta HCG subunit. This test is not indicated for use as a tumor marker. HCG testing is performed using a different test methodology at [facility] than other [facility]. Direct result comparison should only be made within the same method. REF VALUES NON FEMALE <5 MALES <5 Performed By: #### H CGQU #### [facility] [address] [place] [address] Laboratory - Blood bankon ABO group Nom (Bld) O MG-CLIENT RELATIONSHIP MANAGER-Tw [employer] Work Phone: Blood group antibody screen Ql Negative MG-OBGYN-Tw [employer] Work Phone: Rh immune globulin screen (Bld) [Interp] Negative MG-OBGYN-T w [employer] Work Phone: Comment on above: Review your Rh Negat willow female patient's potential need for Rh Immune Globulin (RhIg)administration. Laboratory - Chemistry and C hemistry - challengeon 08-27-2021 Anion gap [Moles/Vol] 16 mmol/L 10 - 20 MG- OBGYN-Tw [employer] Work Phone: Calcium [Mass/Vol] 9.5 mg/dL 8.6 - 10.3 MG-OBG YN-Tw [employer] Work Phone: Chloride [Moles/Vol] 108 mmol/L above high threshold 98 - 107 MG-OBGYN-Tw [employer] Work Phone: CO2 [Moles/Vol] 18 mmol/L below low threshold 21 - 32 MG-OBGYN-Tw [employer] Work Phone: Creatinine [Mass/Vol] 0.85 mg/dL See Below MG- OBGYN-Tw [employer] Work Phone: Comment on above: Reference Range: 0.5 0 - 1.05 Glucose [Mass/Vol] 72 mg/dL below low threshold 74 - 99 MG-OBGYN-Tw [employer] Work Phone: Potassium [Moles/Vol] 3.3 mmol/L below low threshold 3.5 - 5.3 MG-OBGYN-Tw [employer] Work Phone: Sodium [Moles/Vol] 139 mmol/L 136 - 145 MG-OBG YN-Tw [employer] Work Phone: Urea nitrogen [Mass/Vol] 11 mg/dL 6 - 23 MG-OBGYN-Tw [employer] Work Phone: Laboratory - Hematology and Cell countson 08-27-2021 Erythrocyte distribution width (RBC) [Ratio] 14.6 % above high threshold See Below MG-OBGYN-Tw [employer] Work Phone: Comment on above: Reference Range: 11. 5 - 14.5 Hematocrit (Bld) [Volume fraction] 39.1 % See Below MG-OBGYN-Tw [employer] Work Phone: Comment on above: Reference Range: 36. 0 - 46.0 Hemoglobin (Bld) [Mass/Vol] 13.3 g/dL See Below MG-OBGYN-Tw [employer] Work Phone: Comment on above: Reference Range: 12. 0 - 16.0 MCHC (RBC) [Mass/Vol] 34.0 g/dL See Below MG- OBGYN-Tw [employer] Work Phone: Comment on above: Reference Range: 32. 0 - 36.0 MCV (RBC) [Entitic vol] 82 fL 80 - 100 MG-OBGYN-Tw [employer] Work Phone: Platelets (Bld) [#/Vol] 348 10*3/uL 150 - 450 MG-OBGYN-Tw [employer] Work Phone: RBC (Bld) [#/Vol] 4.78 {x10E12/L} See Below MG -OBGYN-Tw [employer] Work Phone: Comment on above: Reference Range: 4.0 0 - 5.20 WBC (Bld) [#/Vol] 9.7 10*3/uL 4.4 - 11.3 MG-OBG YN-Tw [employer] Work Phone: No Panel Informationon 08-27 >60 >60 MG-OBGYN-Tw [employer] Work Phone: Comment on above: CALCULATIONS OF ABBIE MATED GFR ARE PERFORMED USING THE MDRD STUDY EQUATION FOR THE IDMS-TRACEABLE CREATININE METHODS. CLIN CHEM 2007;53:766-72 TYPE + SCREENon 08-27-2021 ABO TYPE O Normal [facility] Comment on above: Performed By: #### T +S #### [address] [address] RH TYPE Negative Normal [facility] Comment on above: Result Comment: Revi ew your Rh Negative female patient's potential need for Rh Immune Globulin (RhIg)administration. Performed By: #### T +S #### [facility] [address] [place] [address] URINALYSIS WITH CULTURE IF I NDICATEDon 08-27-2021 Appearance (U) HAZY Normal CLEAR [facility] Comment on above: Performed By: #### U ARFX #### [facility] [address] [place] [address] Bilirubin Ql (U) Negative Normal NEGATIVE [facility] Comment on above: Performed By: #### U ARFX #### [facility] [address] [place] [address] Color (U) YELLOW Normal STRAW,YELL OW [facility] Comment on above: Performed By: #### U ARFX #### [facility] [address] [place] [address] Glucose Ql (U) Negative Normal NEGATIVE [facility] Comment on above: Performed By: #### U ARFX #### [facility] [address] [place] [address] Hemoglobin Ql (U) Negative Normal NEGATIVE [facility] Comment on above: Performed By: #### U ARFX #### [facility] [address] [place] [address] Ketones Ql (U) Negative Normal NEGATIVE [facility] Comment on above: Performed By: #### U ARFX #### [facility] [address] [place] [address] Leukocyte esterase Test strip Ql (U) Negative Normal NEGATIVE [facility] Comment on above: Performed By: #### U ARFX #### [facility] [address] [place] [address] Nitrite Ql (U) Negative Normal NEGATIVE [facility] Comment on above: Performed By: #### U ARFX #### [facility] [address] [place] [address] pH (U) 5.0 [pH] Normal 5.0 - 8.0 [facility] Comment on above: Performed By: #### U ARFX #### [facility] [address] [place] [address] Protein Ql (U) Negative Normal NEGATIVE [facility] Comment on above: Performed By: #### U ARFX #### [facility] [address] [place] [address] Specific gravity (U) [Rel density] 1.025 Normal 1.005 - 1.035 [facility] Comment on above: Performed By: #### U ARFX #### [address] [address] Urobilinogen (U) [Mass/Vol] 4.0 mg/dL High 0.0 - 1.9 [facility] Comment on above: Result Comment: SOME PIGMENTS AND MEDICATIONS MAY CAUSE A FALSE POSITIVE UROBILINOGEN Performed By: #### U ARFX #### [address] [address] Color (U) YELLOW See Below MG-OBGYN-Tw [employer] Work Phone: Comment on above: Reference Range: STR AW,YELLOW Glucose Ql (U) Negative NEGATIVE MG-OBGYN-T w [employer] Work Phone: Ketones Ql (U) Negative NEGATIVE MG-OBGYN-T w [employer] Work Phone: Leukocyte esterase Test strip Ql (U) Negative NEGATIVE MG-OBGYN-Tw [employer] Work Phone: pH (U) 5.0 [pH] 5.0 - 8.0 MG-OBGYN-Tw [employer] Work Phone: Protein (U) [Mass/Vol] Negative NEGATIVE MG-OBGYN-Tw [employer] Work Phone: RBC (U) [#/Vol] Negative NEGATIVE MG-OBGYN- Tw [employer] Work Phone: Specific gravity (U) [Rel density] 1.025 1 See Below MG-OBGYN-Tw [employer] Work Phone: Comment on above: Reference Range: 1.0 05 - 1.035 URINALYSIS WITH CULTURE IF INDICATED Negative NEGATIVE MG-OBGYN-Tw [employer] Work Phone: URINALYSIS WITH CULTURE IF INDICATED 4.0 mg/dL above high threshold 0.0 - 1.9 MG-OBGYN-Tw [employer] Work Phone: Comment on above: SOME PIGMENTS AND ME DICATIONS MAY CAUSE AFALSE POSITIVE UROBILINOGEN URINALYSIS WITH CULTURE IF INDICATED HAZY CLEAR MG-OBGYN-Tw [employer] Work Phone: TRAFFIC SIGNAL TECHNICIAN - Office Visiton 06-29 TRAFFIC SIGNAL TECHNICIAN - Office Visit Diagnoses/Problems Assessed Female pelvic pain (625.9) (R10.2) Encounter for management and injection of depo-Provera (V25.49) (Z30.42) Ovarian mass, right (620.8) (N83.8) Orders Ultrasound Pelvis Transabdominal With Transvaginal; Status:Hold For - Scheduling; Requested for:15Jul2021; Radiologist to Determine Optimal Study : Y What are the patient's signs and symptoms? : Patient with history ovarian cyst, pelvic pain Patient Discussion/Summary Depo-Provera given left deltoid without difficulty. Patient has been doing well and is using his pills for management of menses and contraception although not currently sexually active. Urine test negative Patient with previous history of chronic pelvic and abdominal pain. None notes acute 2-week exacerbation of the pain. Was seen in the [facility] emergency room without diagnosis. Ultrasound noted. From prior episodes. Patient denies nausea vomiting fever chills no GI or complaints. 3 to 4 cm solid or proteinaceous cyst noted probable dermoid clinically. Doubtful that the cyst has anything to do with the patient's chronic attacks of pain. Patient notes his pain is continued continuing and stopping her from full activity. At this point will repeat ultrasound and reevaluate pain. Possible repeat diagnostic laparoscopy with possible excision of ovarian mass if indicated. Patient was also told that she needed her gallbladder removed. Advised patient for general surgery consult. Patient would like to wait on that. Patient will return to office in 2 weeks for reevaluation. Plan referral for general surgery when patient is willing. Ibuprofen 800 mg p.o. every 8 hours for pain as needed. Urinalysis negative today 30-minute total visit with 20 minutes of consultation review of previous records and ultrasound reports Chief Complaint She is here for her depo and to follow up on her pelvic mass. The office provided the depo. Her last pap was in April 2021 and was normal. No hospital pharmacy director needed. Adult Risk ScreeningThere are no spiritual/cultural practices/values/needs that are important to know Initial Fall Risk Screening: PER has not fallen in the last 6 months. History of Present Illness Patient here for Depo-Provera. Has been using this for control of menses and contraception. Not currently sexually active. Doing well on shot. Patient notes she had a 2-week episode of severe right lower quadrant pain. Pain is sharp stabbing intermittent variable 6-10 out of 10. No inciting factors. Unrelated to menses. Patient been taking Tylenol with only limited effectiveness. Pain has spontaneously become better over the last few days but is still 4-6 out of 10. Patient has prior history of chronic pelvic pain and is status post laparoscopy in 2019 which did not show any abnormalities. Patient was seen in the emergency room at [facility] complaining of this abdominal pain. Repeat ultrasound was done which shows 3 to 4 cm solid lump. No definitive diagnosis made.Ultrasound results reviewed. Films not available. Impression noted Patient has history of 3 to 4 cm solid possibly proteinaceous cyst right ovary. Ultrasound follow-up needed Review of Systems Constitutional: no fever, no chills, no recent weight gain, no recent weight loss and no fatigue. Eyes: no eye pain, no vision problems and no dryness of the eyes. ENT: no hearing loss, no nosebleeds and no sinus congestion. Cardiovascular: no chest pain, no palpitations and no orthopnea. Respiratory: no shortness of breath, no cough and no wheezing. Gastrointestinal: abdominal pain, but no constipation, no nausea, no diarrhea and no vomiting. Genitourinary: no dysuria, no urinary incontinence, no vaginal dryness, no vaginal itching, no dyspareunia, no dysmenorrhea, no sexual problems, no change in urinary frequency, no vaginal discharge, no unexplained vaginal bleeding and no lesion/sore. Musculoskeletal: no back pain, no joint swelling and no leg edema. Integumentary: no rashes, no skin lesions, no nipple discharge, no breast pain and no breast lump. Neurological: no headache, no numbness and no dizziness. Psychiatric: no sleep disturbances, no anxiety and no depression. Endocrine: no hot flashes, no loss of hair and no hirsutism. Hematologic/Lymphatic: no swollen glands, no tendency for easy bleeding and no tendency for easy bruising. All other systems have been reviewed and are negative for complaint. 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 Normal [employer] Tobacco Screening.on 021 Fall risk assessment a) No falls within the last year [facility] [employer] Work Phone: Last menstrual period start date none on depo [facility] [employer] Work Phone: Tobacco use status CP a) Yes [facility] [employer] Work Phone: TRAFFIC SIGNAL TECHNICIAN - Office Visiton 04-30 TRAFFIC SIGNAL TECHNICIAN - Office Visit Diagnoses/Problems Assessed Female pelvic pain (625.9) (R10.2) Orders Start: Naproxen 500 MG Oral Tablet Delayed Release; TAKE 1 TABLET EVERY 12 HOURS NEEDED Patient Discussion/Summary Chart extensively reviewed. Patient has history of chronic off-and-on pelvic pain. Has had a laparoscopy done in the past which showed pelvic adhesions. Patient notes this is a different pain. Currently right sided extending to the back and radiating up to the shoulders. Pain is 8 out of 10 although it has improved to 6-8 out of 10 recently. Pain is sharp stabbing without inciting factors intermittent variable. Patient has not taken any treatment for this. Emergency room notes reviewed from [facility] along with ultrasound and labs. Lesion noted in the right ovary uncertain whether is solid or proteinaceous material. No previous history. Patient was also told she needs her gallbladder removed nothing noted. Patient is here with her mother. Reviewed options for patient in terms of diagnosis and management. At this point patient appears to be spontaneously improving and would prefer to observe for now. Will put patient on Naprosyn for pain. Reviewed risks due to previous esophageal reflux gastric disease. Signs and symptoms reviewed with patient precautions given. Patient will use it sparingly and will call if she needs to use it for more than 2 to 3 days. At this point we will plan observation and repeat ultrasound in 4 to 6 weeks. Discussed possible diagnostic laparoscopy as fall back. Previous did show some pelvic scarring. Doubt that current finding in right ovary is responsible for her problems. All findings reviewed with patient and mother management reviewed as well. Instructions and precautions given. 30-minute total exam with 20 minutes consultation review of chart and labs with patient and mother. Return to office in 2 weeks. Urinalysis negative Chief Complaint Patient here for follow up from ER, last pap 05/06/21 wnl, no hospital pharmacy director needed Adult Risk ScreeningThere are no spiritual/cultural practices/values/needs that are important to know Initial Fall Risk Screening: PER has not fallen in the last 6 months. Pain Scale: On a scale of 0 to 10, the patient rates the pain at 0. Advance directives: Living Will: No living will on file. Tobacco Screening: PER uses tobacco. Has used tobacco in the past 6 months. Has tried to quit or thought about quitting tobacco. History of Present Illness Patient here with 1 week history of severe lower abdominal pain right sided extending to the back into the shoulder. Pain is variable intermittent 8-10 out of 10 on occasion. Sharp stabbing pain radiating up her right side to the shoulder. No nausea vomiting fever chills no GI or complaints. Complaining of frequent headaches and diarrhea chart reviewed. Patient notes pain has no inciting factors. Is unrelated to activity. Has not been using anything for treatment. Was seen in the emergency room at [facility]. Ultrasound report reviewed along with labs. Patient is told that she should have her gallbladder removed although nothing indicated on ultrasound. 2 x 2 centimeter area seen on the right ovary possible solid mass versus thick fluid. No previous history noted. Today patient continues to complain of some low level pain 6-8 out of 10 seems calm at present. Review of Systems Constitutional: no fever, no chills, no recent weight gain, no recent weight loss and no fatigue. Eyes: no eye pain, no vision problems and no dryness of the eyes. ENT: no hearing loss, no nosebleeds and no sinus congestion. Cardiovascular: no chest pain, no palpitations and no orthopnea. Respiratory: no shortness of breath, no cough and no wheezing. Gastrointestinal: abdominal pain, but no constipation, no nausea, no diarrhea and no vomiting. Genitourinary: pelvic pain, but no dysuria, no urinary incontinence, no vaginal dryness, no vaginal itching, no dyspareunia, no dysmenorrhea, no sexual problems, no change in urinary frequency, no vaginal discharge, no unexplained vaginal bleeding and no lesion/sore. Musculoskeletal: no back pain, no joint swelling and no leg edema. Integumentary: no rashes, no skin lesions, no nipple discharge, no breast pain and no breast lump. Neurological: no headache, no numbness and no dizziness. Psychiatric: no sleep disturbances, no anxiety and no depression. Endocrine: no hot flashes, no loss of hair and no hirsutism. Hematologic/Lymphatic: no swollen glands, no tendency for easy bleeding and no tendency for easy bruising. All other systems have been reviewed and are negative for complaint. Active Problems Problems Abnormal uterine bleeding (626.9) (N93.9) Bloating (787.3) (R14.0) Cervical dysplasia (622.10) (N87.9) Chronic pelvic pain in female (625.9,338.29) (R10.2,G89.29) Dysmenorrhea (625.3) (N94.6) Dyspepsia (536.8) (R10.13) Encounter for annual routine gynecological examination (V72.31) (Z01.419) (more content not included)... Normal [employer] Tobacco Screening.on 021 Fall risk assessment a) No falls within the last year [facility] [employer] Work Phone: Last menstrual period start date depo provera [facility] [employer] Work Phone: Tobacco use status [facility] a) Yes [facility] [employer] Work Phone: Tobacco Screening. Yes [facility] [employer] Work Phone: GC + CHLAMYDIA BY AMPLIFIED DETECTIONon 05-08-2021 CHLAMYDIA TRACH.,AMPLIFIED Negative Normal Negative [facility] Comment on above: Result Comment: The APTIMA Combo 2 assay is FDA-approved for Chlamydia trachomatis and Neisseria gonorrhoeae testing on female endocervical and vaginal swabs, ThinPrep liquid pap samples, male urine samples and urethral swabs. Performance characteristics for Chlamydia trachomatis and Neisseria gonorrhoeae testing on specific miv-MBW-zynfbqtf sample types (female urine samples) have been validated by [facility]. This laboratory is certified by CLIA to perform high complexity testing. Samples from all other sites are not validated for this method. Performed By: #### [facility] #### [facility] [address] [place] [address] N.GONORRHEA,AMPLIFIED Negative Normal Negative [facility] Comment on above: Result Comment: The APTIMA Combo 2 assay is FDA-approved for Chlamydia trachomatis and Neisseria gonorrhoeae testing on female endocervical and vaginal swabs, ThinPrep liquid pap samples, male urine samples and urethral swabs. Performance characteristics for Chlamydia trachomatis and Neisseria gonorrhoeae testing on specific nuf-SXX-lxopchpa sample types (female urine samples) have been validated by [facility]. This laboratory is certified by CLIA to perform high complexity testing. Samples from all other sites are not validated for this method. Performed By: #### [facility] #### [facility] [address] [place] [address] TRICHOMONAS,NUCLEIC ACID DET ECTIONon 05-08-2021 TRICHOMONAS VAGINALIS Negative Normal Negative [facility] Comment on above: Result Comment: The APTIMA Trichomonas vaginalis assay is FDA-approved for testing on female endocervical swabs, vaginal swabs, and ThinPrep liquid pap samples. Performance characteristics for Trichomonas vaginalis on specific lwq-FIS-oxwwsgif sample types (female and male urine and male urethral swabs) have been validated by [facility]. This laboratory is certified by CLIA to perform high complexity testing. Samples from all other sites are not validated for this method. Performed By: #### Isela PARIKH #### [facility] [address] [place] [address] GC + Chlamydia By Amplified Detectionon 05-07-2021 C. trachomatis rRNA VIVIAN+probe Ql (Unsp spec) Negative Negative [facility] [place] Work Phone: Comment on above: The APTIMA Combo 2 a ssay is FDA-approved for Chlamydia trachomatis and Neisseria gonorrhoeae testing on female endocervical and vaginal swabs, ThinPrep liquid pap samples, male urine samples and urethral swabs. Performance characteristics for Chlamydia trachomatis and Neisseria gonorrhoeae testing on specific bac-OUE-ljojzjxx sample types (female urine samples) have been validated by [facility]. This laboratory is certified by CLIA to perform high complexity testing. Samples from all other sites are not validated for this method. N. gonorrhoeae rRNA VIVIAN+probe Ql (Unsp spec) Negative Negative [facility] [place] Work Phone: Comment on above: SOURCE: Thin Prep-En docervical The APTIMA Combo 2 assay is FDA-approved for Chlamydia trachomatis and Neisseria gonorrhoeae testing on female endocervical and vaginal swabs, ThinPrep liquid pap samples, male urine samples and urethral swabs. Performance characteristics for Chlamydia trachomatis and Neisseria gonorrhoeae testing on specific kao-RHQ-pulcxmgu sample types (female urine samples) have been validated by [facility]. This laboratory is certified by CLIA to perform high complexity testing. Samples from all other sites are not validated for this method. No Panel Informationon 05-07 Negative Negative [facility] [place] Work Phone: Comment on above: SOURCE: Thin Prep-En docervical The APTIMA Trichomonas vaginalis assay is FDA-approved for testing on female endocervical swabs, vaginal swabs, and ThinPrep liquid pap samples. Performance characteristics for Trichomonas vaginalis on specific pin-NRV-zsrnjfau sample types (female and male urine and male urethral swabs) have been validated by [facility]. This laboratory is certified by CLIA to perform high complexity testing. Samples from all other sites are not validated for this method. TRICHOMONAS,NUCLEIC ACID DET ECTIONon 05-07-2021 Lab Specimen Source Thin Prep-Endocervical Normal [facility] Comment on above: Performed By: #### T JL #### [facility] [address] [place] [address] Performed By: #### G CCHA #### [facility] [address] [place] [address] Laboratory - Cytologyon Cytology report Cyto stain.thin prep Doc (Cvx/Vag) [facility] [address] Work Phone: Cytology report Cyto stain.thin prep Doc (Cvx/Vag) Date of Procedure: 05/06/2021 Pathologist: [facility], Cytology Date Reported: 05/15/2021 Date Received: 05/06/2021 Submitting Physician: MANNY DANIEL CNP FINAL CYTOLOGICAL INTERPRETA -OBGYN-Sharri nunez Work Phone: TRAFFIC SIGNAL TECHNICIAN - Office Visiton TRAFFIC SIGNAL TECHNICIAN - Office Visit Diagnoses/Problems Assessed Encounter for annual routine gynecological examination (V72.31) (Z01.419) Cervical dysplasia (622.10) (N87.9) Orders PAP CUSTOMER ENGAGEMENT MANAGER, Cytology; Status:Hold For - Specimen/Data Collection; Requested for:06May2021; Contraceptive History : Depo Provera Additional Testing : GC + Chlamydia + Trichomononas Abnormal Past Cytology : Abnormal/Atypical/Squamous Last Menstrual Period (LMP): : n/a PAP - Site : CERVICAL Cytology Order : ThinPrep PAP Diagnostic Patient Discussion/Summary Pap smear obtained and STD screening run. Difficult to assess pain level during exam. We will await test results and patient instructed that if discomfort continues she is to return for further evaluation with Dr. Murphy. Chief Complaint annual exam, last pap 06/05/20 ASCUS, no hospital pharmacy director needed Adult Risk ScreeningThere are no spiritual/cultural practices/values/needs that are important to know Initial Fall Risk Screening: PER has not fallen in the last 6 months. Pain Scale: On a scale of 0 to 10, the patient rates the pain at 0. Advance directives: Living Will: No living will on file. Healthcare POA: No healthcare proxy on file. Declaration of Mental Health Treatment: No mental health treatment on file. Tobacco Screening: PER does not use tobacco. Domestic Violence Screen: Does not feel threatened or abused physically, emotionally or sexually. Do you feel UNSAFE? The patient feels safe in the home. Depression/Suicide Screening: During the past 2 weeks, the patient has not felt down, depressed or hopeless. During the past 2 weeks, the patient has not felt little interest or pleasure in doing things. She does not have a risk of suicide. She has not had thoughts of harming others. Single alcohol screening question: In the past year the patient has had 5 or more drinks (men) or 4 or more drinks (women)? 0 time(s). Single substance abuse screening question: In the past year the patient has used a recreational drug or used a prescription drug for non-medical reasons? 0 time(s). Procedure or Sedation Areas: patient has not had alcohol, recreational drugs, or prescription drugs for non-medical reasons this morning. Nutrition Screening: In the past month, there was not a day when I or anyone in my family went hungry because there was not enough food. Patient Education: The patient denies that they or the person with them has problems with hearing, speaking, seeing, moving around or learning The patient is comfortable filling out medical forms. Food Insecurity: 1. Within the past 12 months, you worried that your food would run out before you got money to buy more: No 2. Within the past 12 months, the food you bought just didn't last and you didn't have money to get more: No History of Present Illness 25-year-old here for her annual physical examination. Previously patient had wanted but she found out that her partner had been cheating on her and she is now back on Depo-Provera to prevent . Patient reports having a reoccurrence of lower pelvic pain. She states that this just started the beginning of the week. She reports that it is similar to the type of pain she had prior to surgery done by Dr. Murphy in the past. Her last Pap smear May 2020 was ASCUS and Pap will be repeated today. Patient is agreeable to STD screening due to her past partner's infidelity. Review of Systems Constitutional: no fever, no chills, no recent weight gain, no recent weight loss and no fatigue. Eyes: no eye pain, no vision problems and no dryness of the eyes. ENT: no hearing loss, no nosebleeds and no sinus congestion. Cardiovascular: no chest pain, no palpitations and no orthopnea. Respiratory: no shortness of breath, no cough and no wheezing. Gastrointestinal: no abdominal pain, no constipation, no nausea, no diarrhea and no vomiting. Genitourinary: pelvic pain, but no dysuria, no urinary incontinence, no vaginal dryness, no vaginal itching, no dyspareunia, no dysmenorrhea, no sexual problems, no change in urinary frequency, no vaginal discharge, no unexplained vaginal bleeding and no lesion/sore. Musculoskeletal: no back pain, no joint swelling and no leg edema. Integumentary: no rashes, no skin lesions, no nipple discharge, no breast pain and no breast lump. Neurological: no headache, no numbness and no dizziness. Psychiatric: no sleep disturbances, no anxiety and no depression. Endocrine: no hot flashes, no loss of hair and no hirsutism. Hematologic/Lymphatic: no swollen glands, no tendency for easy bleeding and no tendency for easy bruising. All other systems have been reviewed and are negative for complaint. Active Problems Problems Abnormal uterine bleeding (626.9) (N93.9) Bloating (787.3) (R14.0) Cervical dysplasia (622.10) (N87.9) Chronic pelvic pain in female (625.9,338.29) (R10.2,G89.29) Dysmenorrhea (625.3) (N94.6) Dyspepsia (536.8) (R10.13) Encounter for manny (more content not included)... Normal [employer] Tobacco Screening.on 021 Fall risk assessment a) No falls within the last year [facility] [employer] Work Phone: Last menstrual period start date 21Apr2021 [facility] [employer] Phone: Tobacco use status [facility] a) Yes [facility] [employer] Work Phone: Tobacco Screening. Yes [facility] [employer] Work Phone: IO HCG, Urine Test on 04-21-2021 HCG ( test) Ql (U) Negative [facility] [employer] Work Phone: TRAFFIC SIGNAL TECHNICIAN - Office Visiton 03-30 TRAFFIC SIGNAL TECHNICIAN - Office Visit Patient Discussion /Summary Depo-Provera contraception. Follow-up in 3 months Chief Complaint patient here for Depo Provera injection, last pap 06/19/20 ASCUS, no hospital pharmacy director needed Adult Risk ScreeningThere are no spiritual/cultural practices/values/needs that are important to know Initial Fall Risk Screening: PER has not fallen in the last 6 months. Pain Scale: On a scale of 0 to 10, the patient rates the pain at 0. History of Present Illness Patient is a 25-year-old female here for Depo-Provera. Currently on her menses. Last Depo shot was in May. She was then again seen in July and was considering to attempting . Now has changed her mind and would like to restart on Depo-Provera. She denies any urinary or bowel symptoms. test today is negative Review of Systems Constitutional: no fever, no chills, no recent weight gain, no recent weight loss and no fatigue. Eyes: no eye pain, no vision problems and no dryness of the eyes. ENT: no hearing loss, no nosebleeds and no sinus congestion. Cardiovascular: no chest pain, no palpitations and no orthopnea. Respiratory: no shortness of breath, no cough and no wheezing. Gastrointestinal: no abdominal pain, no constipation, no nausea, no diarrhea and no vomiting. Genitourinary: no dysuria, no urinary incontinence, no vaginal dryness, no vaginal itching, no dyspareunia, no pelvic pain, no dysmenorrhea, no sexual problems, no change in urinary frequency, no vaginal discharge, no unexplained vaginal bleeding and no lesion/sore. Musculoskeletal: no back pain, no joint swelling and no leg edema. Integumentary: no rashes, no skin lesions, no nipple discharge, no breast pain and no breast lump. Neurological: no headache, no numbness and no dizziness. Psychiatric: no sleep disturbances, no anxiety and no depression. Endocrine: no hot flashes, no loss of hair and no hirsutism. Hematologic/Lymphatic: no swollen glands, no tendency for easy bleeding and no tendency for easy bruising. All other systems have been reviewed and are negative for complaint. 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) Gastroesophageal reflux disease, esophagitis presence not specified (530.81) (K21.9) Irregular menses (626.4) (N92.6) Irritable bowel syndrome, unspecified type (564.1) (K58.9) Loose stools (787.7) (R19.5) Low grade squamous intraepithelial lesion on cytologic smear of cervix (LGSIL) (795.03) (R87.612) Lower abdominal pain (789.09) (R10.30) NSAID long-term use (V58.64) (Z79.1) Pap smear, as part of routine gynecological examination (V76.2) (Z01.419) Postoperative examination (V67.00) (Z09) Urinary incontinence, unspecified type (788.30) (R32) Urine test negative (V72.41) (Z32.02) Vaginal itching (698.1) (N89.8) Past Medical History Problems History of Encounter for management and injection of depo-Provera (V25.49) (Z30.42) Resolved Date: 18 Feb 2021 History of anxiety disorder (V11.8) (Z86.59) History of asthma (V12.69) (Z87.09) History of attention deficit hyperactivity disorder (ADHD) (V11.8) (Z86.59) History of seizure (V12.49) (Z87.898) History of trichomonal vaginitis (V13.29) (Z86.19) Resolved Date: 18 Feb 2021 History of Negative test (V72.41) (Z32.02) Resolved Date: 18 Feb 2021 Surgical History Problems History of Laparoscopy Family History Child Family history of Adopted child Social History Problems Former smoker (V15.82) (Z87.891) Allergies Medication amoxicillin Recorded By: Natasha Hernandez; 08/29/2019 10:33:35 AM Carbocaine HCl Recorded By: Natasha Hernandez; 08/29/2019 10:34:38 AM lidocaine Recorded By: Brandi Newman; 05/09/2019 1:48:44 PM Novocain SOLN Recorded By: Natasha Hernandez; 08/29/2019 10:34:38 AM NonMedication Bee sting Recorded By: Brandi Newman; 05/09/2019 1:48:44 PM Mushrooms Recorded By: Brandi Newman; 05/09/2019 1:48:44 PM Current Meds Medication NameInstruction Albuterol Sulfate (2.5 MG/3ML) 0.083% Inhalation Nebulization Solution Dicyclomine HCl - 10 MG Oral CapsuleTAKE 1 CAPSULE BY MOUTH FOUR TIMES DAILY NEEDED. MAY REDUCE DOSAGE Easy Touch Lancets 33G/[employer] DIRECTED DAILY AND NEEDED Ibuprofen 800 MG Oral TabletTAKE 1 TABLET 3 TIMES DAILY NEEDED. Iron 325 (65 Fe) MG Oral Tablet Naproxen 500 MG Oral Tablet1 TABLET ORALLY 2 TIMES PER DAY WITH FOOD OR MILK NEEDED FOR KNEE P Omeprazole 40 MG Oral Capsule Delayed ReleaseTAKE 1 CAPSULE BY MOUTH DEMARCUS (more content not included)... Normal [employer] Tobacco Screening.on 021 Fall risk assessment a) No falls within the last year [facility] [employer] Phone: Last menstrual period start date 21Apr2021 [facility] [employer] Phone: Tobacco use status [facility] b) No [facility] [place] Work Phone: VAGINITIS GRAM STAIN FOR BONNIE TERIAL VAGINOSIS + YEASTon 02-20-2021 CLUE CELLS ABSENT Normal [facility] Comment on above: Performed By: #### G SVAG #### [facility] - [place] [address] [place] [address] ALEKS SCORE 3 Normal [facility] Comment on above: Result Comment: Inte rpretation of the Aleks Score 0-3.....Normal vaginal microbiota 4-6.....Intermediate results 7-10....Bacterial vaginosis Performed By: #### G SVAG #### [facility] [address] [place] [address] Yeast LM Ql (Urine sed) ABSENT Normal [facility] Comment on above: Performed By: #### G SVAG #### [facility] [address] [place] [address] GC + CHLAMYDIA BY AMPLIFIED DETECTIONon 02-19-2021 CHLAMYDIA TRACH.,AMPLIFIED Negative Normal Negative [facility] Comment on above: Performed By: #### [facility] #### [facility] [address] [place] [address] N.GONORRHEA,AMPLIFIED Negative Normal Negative [facility] Comment on above: Performed By: #### G CCHA #### [facility] [address] [place] [address] TRICHOMONAS,NUCLEIC ACID DET ECTIONon 02-19-2021 TRICHOMONAS VAGINALIS Negative Normal Negative [facility] Comment on above: Performed By: #### T JL #### [facility] [address] [place] [address] TRAFFIC SIGNAL TECHNICIAN - Office Visiton 01-28 TRAFFIC SIGNAL TECHNICIAN - Office Visit Diagnoses/Problems Assessed History of Negative test (V72.41) (Z32.02) Negative test (V72.41) (Z32.02) Vaginal itching (698.1) (N89.8) Orders IO HCG, Urine Test; Status:Resulted - Requires Verification,Retrospective Authorization; Done: 18Feb2021 03:43PM GC + Chlamydia By Amplified Detection; Status:Active; Requested for:18Feb2021; IO UA (automated w/o microscopy); Status:Resulted - Requires Verification,Retrospective Authorization; Done: 18Feb2021 03:42PM Trichomonas Vaginalis, Amplified; Status:Active; Requested for:18Feb2021; VAGINITIS GRAM STAIN FOR BACTERIAL VAGINOSIS + YEAST; Status:Hold For - Specimen/Data Collection; Requested for:18Feb2021; Patient Discussion/Summary Exam unremarkable. Testing sent to laboratory patient will be notified for any abnormal findings and treated appropriately Chief Complaint patient here for vaginal itching and discharge, last pap 06/05/20 ASCUS, no hospital pharmacy director needed Adult Risk ScreeningThere are no spiritual/cultural practices/values/needs that are important to know Initial Fall Risk Screening: PER has not fallen in the last 6 months. Pain Scale: On a scale of 0 to 10, the patient rates the pain at 4. History of Present Illness 25-year-old patient here with a complaint of vaginal discharge and itching. She has not used anything to make it better but it seems to have decreased and improved on its own. Patient's last Pap smear was May 2020 with the results of ASCUS. Per current guidelines that Pap should be repeated this coming May. Patient is a smoker and she has been encouraged to decrease or stop smoking to improve the health of her cervix. Review of Systems Constitutional: no fever, no chills, no recent weight gain, no recent weight loss and no fatigue. Eyes: no eye pain, no vision problems and no dryness of the eyes. ENT: no hearing loss, no nosebleeds and no sinus congestion. Cardiovascular: no chest pain, no palpitations and no orthopnea. Respiratory: no shortness of breath, no cough and no wheezing. Gastrointestinal: no abdominal pain, no constipation, no nausea, no diarrhea and no vomiting. Genitourinary: vaginal itching, but no dysuria, no urinary incontinence, no vaginal dryness, no dyspareunia, no pelvic pain, no dysmenorrhea, no sexual problems, no change in urinary frequency, no vaginal discharge, no unexplained vaginal bleeding and no lesion/sore. Musculoskeletal: no back pain, no joint swelling and no leg edema. Integumentary: no rashes, no skin lesions, no nipple discharge, no breast pain and no breast lump. Neurological: no headache, no numbness and no dizziness. Psychiatric: no sleep disturbances, no anxiety and no depression. Endocrine: no hot flashes, no loss of hair and no hirsutism. Hematologic/Lymphatic: no swollen glands, no tendency for easy bleeding and no tendency for easy bruising. All other systems have been reviewed and are negative for complaint. 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) Gastroesophageal reflux disease, esophagitis presence not specified (530.81) (K21.9) Irregular menses (626.4) (N92.6) Irritable bowel syndrome, unspecified type (564.1) (K58.9) Loose stools (787.7) (R19.5) Low grade squamous intraepithelial lesion on cytologic smear of cervix (LGSIL) (795.03) (R87.612) Lower abdominal pain (789.09) (R10.30) NSAID long-term use (V58.64) (Z79.1) Pap smear, as part of routine gynecological examination (V76.2) (Z01.419) Postoperative examination (V67.00) (Z09) Urinary incontinence, unspecified type (788.30) (R32) Urine test negative (V72.41) (Z32.02) Vaginal itching (698.1) (N89.8) Past Medical History Problems History of Encounter for management and injection of depo-Provera (V25.49) (Z30.42) History of anxiety disorder (V11.8) (Z86.59) History of asthma (V12.69) (Z87.09) History of attention deficit hyperactivity disorder (ADHD) (V11.8) (Z86.59) History of seizure (V12.49) (Z87.898) History of trichomonal vaginitis (V13.29) (Z86.19) History of Negative test (V72.41) (Z32.02) Resolved Date: 18 Feb 2021 Surgical History Problems History of Laparoscopy Family History Child Family history of Adopted child Social History Problems Former smoker (V15.82) (Z87.891) Allergies Medication amoxicillin Recorded By: Natasha Hernandez; 08/29/2019 10:33:35 AM Carbocaine HCl Recorded By: Natasha Hernandez; 08/29/2019 10:34:38 AM lidocaine Recorded By: Brandi Newman; 05/09/2019 1:48:44 PM Novocain SOLN Recorded By: Agustín Hernandez (more content not included)... Normal Touchworks TRICHOMONAS,NUCLEIC ACID DET ECTIONon 02-18-2021 Lab Specimen Source Genital Normal [facility] Comment on above: Performed By: #### T JL #### [facility] [address] [place] [address] Performed By: #### G CCHA #### [facility] [address] [place] [address] XR Ankle - left AP and Later al and obliqueon 02-03-2021 IMPRESSION: Unremarkable. Tire Layer: [facility] Transcribe Date/Time: Feb 03 2021 2:23P Dictated by : JEAN-CLAUDE NARANJO MD This examination was interpreted and the report reviewed and electronically signed by: JEAN-CLAUDE NARANJO MD on Feb 03 2021 2:25PM [facility] [email or web address]] DIVISION OF RADIOLOGY * * *Final Report* * * DATE OF EXAM: Feb 03 2021 2:23PM STX 5298 - XR ANKLE 3V AP/LAT/OBL LT / PROCEDURE REASON: Sprain of ligament of left ankle, subsequent encounter * * * * Physician Interpretation * * * * EXAMINATION: XR ANKLE 3V AP/LAT/OBL LT HISTORY: follow up left ankle sprain Sprain of ligament of left ankle, subsequent encounter. TECHNIQUE: XR ANKLE 3V AP/LAT/OBL LT Laterality: LEFT Number of different views (projections): 3 M: XB_1 COMPARISON: Comparison is made to prior study dated December RESULT: Standing frontal radiographs of the bilateral ankles with oblique and lateral weightbearing views of the left ankle show no acute osseous, articular or soft tissue process. Ankle mortise and syndesmosis are preserved. DIVISION OF RADIOLOGY Provider, Jaydon Francisco [facility] - 02/03/2021 * * *Final Report* * * DATE OF EXAM: Feb 03 2021 2:23PM STX 5298 - XR ANKLE 3V AP/LAT/OBL LT / PROCEDURE REASON: Sprain of ligament of left ankle, subsequent encounter * * * * Physician Interpretation * * * * EXAMINATION: XR ANKLE 3V AP/LAT/OBL LT HISTORY: follow up left ankle sprain Sprain of ligament of left ankle, subsequent encounter. TECHNIQUE: XR ANKLE 3V AP/LAT/OBL LT Laterality: LEFT Number of different views (projections): 3 M: XB_1 COMPARISON: Comparison is made to prior study dated December RESULT: Standing frontal radiographs of the bilateral ankles with oblique and lateral weightbearing views of the left ankle show no acute osseous, articular or soft tissue process. Ankle mortise and syndesmosis are preserved. IMPRESSION IMPRESSION: Unremarkable. Tire Layer: [facility] Transcribe Date/Time: Feb 03 2021 2:23P Dictated by : JEAN-CLAUDE NARANJO MD This examination was interpreted and the report reviewed and electronically signed by: JEAN-CLAUDE NARANJO MD on Feb 03 2021 2:25PM EST [facility] Radiology Study observation (narrative) [facility] XR Ankle - left AP and Later al and obliqueOrdered By: [facility] Provider on 02-03-2021 [facility] XR Ankle - left AP and Later al and obliqueon 01-22-2021 IMPRESSION: No acute osseous abnormality identified. Tire Layer: [facility] Transcribe Date/Time: Jan 22 2021 4:49P Dictated by : BRIDGETTE SILVA MD This examination was interpreted and the report reviewed and electronically signed by: BRIDGETTE SILVA MD on Jan 22 2021 4:51PM [facility] [[email or web address]] DIVISION OF RADIOLOGY * * *Final Report* * * DATE OF EXAM: Jan 22 2021 4:44PM WOX 5298 - XR ANKLE 3V AP/LAT/OBL LT / PROCEDURE REASON: Sprain of ligament of left ankle, subsequent encounter * * * * Physician Interpretation * * * * Left ankle radiographs HISTORY: 25 years old Clinical information: Sprain of ligament of left ankle, subsequent encounter Pt. states she fell on 12/16/20. Pt had xrays of her Lt ankle at [facility]. Pt. states she can not feel her Lt ankle or foot. Pt. has not walked on lt foot since fall. TECHNIQUE: Images: XR ANKLE 3V AP/LAT/OBL LT Comparison: June 27, 2020. RESULT: Findings: No fracture or dislocation. Ankle mortise is congruent. No soft tissue abnormality identified. DIVISION OF RADIOLOGY Provider, [facility] Maryam Lopez - 01/22/2021 * * *Final Report* * * DATE OF EXAM: Jan 22 2021 4:44PM WOX 5298 - XR ANKLE 3V AP/LAT/OBL LT / PROCEDURE REASON: Sprain of ligament of left ankle, subsequent encounter * * * * Physician Interpretation * * * * Left ankle radiographs HISTORY: 25 years old Clinical information: Sprain of ligament of left ankle, subsequent encounter Pt. states she fell on 12/16/20. Pt had xrays of her Lt ankle at [facility]. Pt. states she can not feel her Lt ankle or foot. Pt. has not walked on lt foot since fall. TECHNIQUE: Images: XR ANKLE 3V AP/LAT/OBL LT Comparison: June 27, 2020. RESULT: Findings: No fracture or dislocation. Ankle mortise is congruent. No soft tissue abnormality identified. IMPRESSION IMPRESSION: No acute osseous abnormality identified. [facility] Transcribe Date/Time: Jan 22 2021 4:49P Dictated by : BRIDGETTE SILVA MD This examination was interpreted and the report reviewed and electronically signed by: BRIDGETTE SILVA MD on Jan 22 2021 4:51PM EST [facility] Radiology Study observation (narrative) [facility] XR Ankle - left AP and Later al and obliqueOrdered By: [facility] Provider on 01-22-2021 [facility] TRAFFIC SIGNAL TECHNICIAN - Office Visiton 12-2 TRAFFIC SIGNAL TECHNICIAN - Office Visit Diagnoses/Problems Assessed Irregular menses (626.4) (N92.6) Patient Discussion/Summary Patient here for irregular menses. Last Depo-Provera was given end of May. She is still been effective until the end of August beginning of September. Patient would like to become . With suspect within the next few months patient will begin having regular cycles. Patient will call in 3 months if not . Office test negative Chief Complaint follow up visit, irregular menstrual cycles, last pap 06/05/20 ASCUS, no hospital pharmacy director needed Adult Risk ScreeningThere are no spiritual/cultural practices/values/needs that are important to know Initial Fall Risk Screening: PER has not fallen in the last 6 months. Pain Scale: On a scale of 0 to 10, the patient rates the pain at 3. History of Present Illness Patient for follow-up. Did have a regular cycle. 2 days of bleeding which were heavy and light. Review of Systems Constitutional: no fever, no chills, no recent weight gain, no recent weight loss and no fatigue. Eyes: no eye pain, no vision problems and no dryness of the eyes. ENT: no hearing loss, no nosebleeds and no sinus congestion. Cardiovascular: no chest pain, no palpitations and no orthopnea. Respiratory: no shortness of breath, no cough and no wheezing. Gastrointestinal: no abdominal pain, no constipation, no nausea, no diarrhea and no vomiting. Genitourinary: no dysuria, no urinary incontinence, no vaginal dryness, no vaginal itching, no dyspareunia, no pelvic pain, no dysmenorrhea, no sexual problems, no change in urinary frequency, no vaginal discharge, no unexplained vaginal bleeding and no lesion/sore. Musculoskeletal: no back pain, no joint swelling and no leg edema. Integumentary: no rashes, no skin lesions, no nipple discharge, no breast pain and no breast lump. Neurological: no headache, no numbness and no dizziness. Psychiatric: no sleep disturbances, no anxiety and no depression. Endocrine: no hot flashes, no loss of hair and no hirsutism. Hematologic/Lymphatic: no swollen glands, no tendency for easy bleeding and no tendency for easy bruising. All other systems have been reviewed and are negative for complaint. 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) Gastroesophageal reflux disease, esophagitis presence not specified (530.81) (K21.9) Irregular menses (626.4) (N92.6) Irritable bowel syndrome, unspecified type (564.1) (K58.9) Loose stools (787.7) (R19.5) Low grade squamous intraepithelial lesion on cytologic smear of cervix (LGSIL) (795.03) (R87.612) Lower abdominal pain (789.09) (R10.30) Negative test (V72.41) (Z32.02) NSAID long-term use (V58.64) (Z79.1) Pap smear, as part of routine gynecological examination (V76.2) (Z01.419) Postoperative examination (V67.00) (Z09) Trichomonas vaginitis (131.01) (A59.01) Urinary incontinence, unspecified type (788.30) (R32) Urine test negative (V72.41) (Z32.02) Vaginal itching (698.1) (N89.8) Past Medical History Problems History of anxiety disorder (V11.8) (Z86.59) History of asthma (V12.69) (Z87.09) History of attention deficit hyperactivity disorder (ADHD) (V11.8) (Z86.59) History of seizure (V12.49) (Z87.898) Surgical History Problems History of Laparoscopy Family History Child Family history of Adopted child Social History Problems Former smoker (V15.82) (Z87.891) Allergies Medication amoxicillin Recorded By: Natasha Hernandez; 08/29/2019 10:33:35 AM Carbocaine HCl Recorded By: Natasha Hernandez; 08/29/2019 10:34:38 AM lidocaine Recorded By: Brandi Newman; 05/09/2019 1:48:44 PM Novocain SOLN Recorded By: Natasha Hernandez; 08/29/2019 10:34:38 AM NonMedication Bee sting Recorded By: Brandi Newman; 05/09/2019 1:48:44 PM Mushrooms Recorded By: Brandi Newman; 05/09/2019 1:48:44 PM Current Meds Medication NameInstruction Albuterol Sulfate (2.5 MG/3ML) 0.083% Inhalation Nebulization Solution Dicyclomine HCl - 10 MG Oral CapsuleTAKE 1 CAPSULE BY MOUTH FOUR TIMES DAILY NEEDED. MAY REDUCE DOSAGE Easy Touch Lancets 33G/TwistUSE DIRECTED DAILY AND NEEDED Ibuprofen 800 MG Oral TabletTAKE 1 TABLET 3 TIMES DAILY NEEDED. Iron 325 (65 Fe) MG Oral Tablet Naproxen 500 MG Oral Tablet1 TABLET ORALLY 2 TIMES PER DAY WITH FOOD OR MILK NEEDED FOR KNEE P Omeprazole 40 MG Oral Capsule Delayed ReleaseTAKE 1 CAPSULE BY MOUTH DAILY ProAir HFA 108 (90 Base) MCG/ACT Inhalation Aerosol Solution S (more content not included)... Normal Touchworks HCG,BETA-QUANTITATIVEon 11- HCG,BETA-QUANTITATIVE <3 Normal [facility] Comment on above: Result Comment: Low- level positive HCG results can be seen in early , in hanane- or post-menopausal females due to normal pituitary HCG production, or with analytic interference. Repeat testing in 48-72 hours can aid in assessing for as results should double in this time period. FSH measurement is recommended in hanane- or post-menopausal females as concurrent elevation of FSH can support pituitary production as the source of the HCG elevation. . Total HCG measurement is performed using the Siemens Atellica immunoassay which detects intact HCG and free beta HCG subunit. This test is not indicated for use as a tumor marker. HCG testing is performed using a different test methodology at [facility] than other [facility]. Direct result comparison should only be made within the same method. REF VALUES NON FEMALE <5 MALES <5 Performed By: #### H QU #### [facility] [address] [place] [address] TRAFFIC SIGNAL TECHNICIAN - Office Visiton 09-30 TRAFFIC SIGNAL TECHNICIAN - Office Visit Chief Complaint Pt here for confirmation last pap 06.05.2020 ASCUS No hospital pharmacy director needed History of Present IllnessPatient also last normal menstrual period was in July.If she has had conflicting positive and negative test at home. Was seen in [facility] told at one time she had a positive blood test so none was told that it was sent out lab Jim is now negative. Patient is not actively trying to get but would not mind if she became . Sexually active with steady partner. Was on seizure medications and antidepressants. Stop these when she was told she was . Having some ongoing issues with some lower abdominal pain. Pain is 2-4 out of 10 constant variable suprapubic bilateral lower quadrants crampy. Similar to the pain she normally has no more severe Has history of IBS. There are no spiritual/cultural practices/values/needs that are important to know Initial Fall Risk Screening: PER has not fallen in the last 6 months. Pain Scale: On a scale of 0 to 10, the patient rates the pain at 0. Review of Systems Constitutional: no fever, no chills, no recent weight gain, no recent weight loss and no fatigue. Eyes: no eye pain, no vision problems and no dryness of the eyes. ENT: no hearing loss, no nosebleeds and no sinus congestion. Cardiovascular: no chest pain, no palpitations and no orthopnea. Respiratory: no shortness of breath, no cough and no wheezing. Gastrointestinal: abdominal pain and Crampy 2-4 out of 10 suprapubic bilateral lower quadrants, but no constipation, no nausea, no diarrhea and no vomiting. Genitourinary: unexplained vaginal bleeding, but no dysuria, no urinary incontinence, no vaginal dryness, no vaginal itching, no dyspareunia, no pelvic pain, no dysmenorrhea, no sexual problems, no change in urinary frequency, no vaginal discharge and no lesion/sore. Musculoskeletal: no back pain, no joint swelling and no leg edema. Integumentary: no rashes, no skin lesions, no nipple discharge, no breast pain and no breast lump. Neurological: no headache, no numbness and no dizziness. Psychiatric: no sleep disturbances, no anxiety and no depression. Endocrine: no hot flashes, no loss of hair and no hirsutism. Hematologic/Lymphatic: no swollen glands, no tendency for easy bleeding and no tendency for easy bruising. 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) Gastroesophageal reflux disease, esophagitis presence not specified (530.81) (K21.9) Irregular menses (626.4) (N92.6) Irritable bowel syndrome, unspecified type (564.1) (K58.9) Loose stools (787.7) (R19.5) Low grade squamous intraepithelial lesion on cytologic smear of cervix (LGSIL) (795.03) (R87.612) Lower abdominal pain (789.09) (R10.30) Negative test (V72.41) (Z32.02) NSAID long-term use (V58.64) (Z79.1) Pap smear, as part of routine gynecological examination (V76.2) (Z01.419) Postoperative examination (V67.00) (Z09) Trichomonas vaginitis (131.01) (A59.01) Urinary incontinence, unspecified type (788.30) (R32) Urine test negative (V72.41) (Z32.02) Vaginal itching (698.1) (N89.8) Past Medical History History of anxiety disorder (V11.8) (Z86.59) History of asthma (V12.69) (Z87.09) History of attention deficit hyperactivity disorder (ADHD) (V11.8) (Z86.59) History of seizure (V12.49) (Z87.898) Surgical History History of Laparoscopy Family History Family history of Adopted child Social History Former smoker (V15.82) (Z87.891) Allergies amoxicillin Recorded By: Natasha Hernandez; 08/29/2019 10:33:35 AM Carbocaine HCl Recorded By: Natasha Hernandez; 08/29/2019 10:34:38 AM lidocaine Recorded By: Brandi Newman; 05/09/2019 1:48:44 PM Novocain SOLN Recorded By: Natasha Hernandez; 08/29/2019 10:34:38 AM Bee sting Recorded By: Brandi Newman; 05/09/2019 1:48:44 PM Mushrooms Recorded By: Brandi Newman; 05/09/2019 1:48:44 PM Current Meds Dicyclomine HCl - 10 MG Oral Capsule; TAKE 1 CAPSULE BY MOUTH FOUR TIMES DAILY NEEDED. MAY REDUCE DOSAGE; Therapy: 11May2019 to (Renew:[id number]) Requested for: 04Dec2019; Last Rx:30Nov2019 Ordered Rx By: Maurice Kwon; Dispense: 30 Days ; #:120 Capsule; Refill: 0;For: Dyspepsia; BLUE = N; Verified Transmission to [facility] Omeprazole 40 MG Oral Capsule Delayed Release; TAKE 1 CAPSULE BY MOUTH DAILY; Therapy: 11May2019 to (Last Rx:30Nov2019) Requested for: 04Dec2019 Ordered Rx By: Maurice Kwon; Dispense: (more content not included)... Normal Touchworks ANES POSTPROC EVALon 020 ANES POSTPROC EVAL HNO ID: [id number] Author: Roger Franco MD Service: ? Author Type: Anesthesiologist Type: Anesthesia Postprocedure Evaluation Filed: 07/22/2020 11:17 AM Note Text: POST ANESTHESIA EVALUATION NOTE : 1995 Procedure Summary Date: 07/22/20 Room / Location: [facility] / [facility] Anesthesia Start: 949 Anesthesia Stop: 1031 Procedures: COLONOSCOPY WITH BIOPSY (N/A ) EGD WITH BIOPSY (N/A ) Diagnosis: Altered bowel habits Bright red blood per rectum Iron deficiency anemia Epigastric pain Surgeons: Jeffrey Medina Responsible Provider: Roger Franco MD Anesthesia Type: MAC ASA Status: 2 Anesthesia Type: MAC Last vitals Vitals Value Taken Time BP 102/72 07/22/20 1100 Temp 37.2 ?C (99 ?F) 07/22/20 1100 Pulse 76 07/22/20 1100 Resp 16 07/22/20 1100 SpO2 100 % 07/22/20 1100 Post Anesthesia Patient Status Patient Evaluation: bedside. Anticipated Disposition: phase 2 then home. Neurological Status: aware and responsive. Pulmonary Status: breathing comfortably on room air Airway Control: returned to baseline unsupported. Cardiovascular Status: stable. Pain Management: clinically adequate Postoperative Hydration: acceptable. Intraoperative Events: no significant anesthesia events Post Operative Nausea/Vomiting Status: no significant post operative nausea or vomiting Anesthetic Observations: no significant anesthetic observations Recommendation: continue current plan of care. SIGNATURE: Roger Franco MD PATIENT NAME: Per Farmer DATE: July 22, 2020 TIME: 11:17 AM CSN: [id number] [facility] ANES PRE-OPon 07-22-2020 ANES PRE-OP HNO ID: [id number] Author: Roger Franco MD Service: ? Author Type: Anesthesiologist Type: Anesthesia Preprocedure Evaluation Filed: 07/22/2020 8:53 AM Note Text: ANESTHESIOLOGY DAY OF SURGERY NOTE : 1995 Procedure(s) (LRB): COLONOSCOPY (N/A) EGD (N/A) Surgeon(s): Jeffrey Medina Estimated body mass index is 27.22 kg/m? as calculated from the following: Height as of 07/19/20: 170.2 cm (5' 7). Weight as of 07/19/20: 78.8 kg (173 lb 12.8 oz). Most recent hematocrit and potassium results: Hematocrit 39.3 04/15/2020 Potassium 3.7 04/15/2020 Relevant Problems CARDIO (+) Migraine GI (+) GERD (gastroesophageal reflux disease) PULMONARY (+) Asthma I - PHYSICAL EVALUATION AIRWAY Patient intubated: No. Tracheostomy tube not present Mallampati: III. TM distance: <3 FB. Neck ROM: full ROM without neurological symptoms. Mouth opening: adequate. Short neck: no. Thick neck: no DENTAL Normal dental observations. Dental findings: teeth intact and poor dentition. Additional exam findings: no II - ANESTHESIA PLAN ASA Score: 2 Anesthetic Plan: MAC Anesthetic plan additional comments: Recessed chin. The patient is not a current smoker. NPO Status: adequate Monitoring plan: standard ASA. Postoperative analgesic plan: parenteral or oral opioids. Anesthetic Risks, Benefits, Alternatives, Personnel Discussed. Consent obtained from: patient. Patient / Surrogate agrees to blood products: blood products not planned DNR status not reviewed with patient and/or family prior to surgery. Significant changes in the patient condition since the History and Physical, not otherwise documented in primary service progress note: no. Potential Anesthesia issues that may suggest increased risk of complications or contraindication to planned procedure: none. Vitals Value Taken Time BP 109/69 07/22/20 0830 Pulse 74 07/22/20 0830 Resp 16 07/22/20 0830 Temp 36.3 ?C (97.3 ?F) 07/22/20 0830 SpO2 97 % 07/22/20 0830 Facility-Administered Medications as of 07/22/2020 Medication Dose Route Frequency - lactated ringers infusion 50 mL/hr INTRAVENOUS CONTINUOUS - NaCl 0.9% iv infusion 30 mL/hr INTRAVENOUS CONTINUOUS Outpatient Medications as of 07/22/2020 Medication Sig - topiramate (TOPAMAX) 50 mg tablet Take 1 tablet by mouth twice daily. - calcium carbonate/vitamin D3 (CALCIUM 500 + D ORAL) Take by mouth. - folic acid 1 mg tablet Take 1 tablet by mouth once daily. - blood sugar diagnostic (BLOOD GLUCOSE TEST) test strip Test blood sugar(s) 2 times daily. Dx: Type 2 DM - Controlled E11.9 Insulin: No - Omeprazole 40 mg capsule Take 1 capsule by mouth once daily. - ferrous sulfate 325 mg (65 mg iron) tablet Take 1 tablet by mouth twice daily with meals. - sertraline (ZOLOFT) 100 mg tablet Take 1.5 tablets by mouth once daily. - dicyclomine (BENTYL) 10 mg capsule Take 10 mg by mouth before meals and at bedtime. I have interviewed and examined the patient. I have reviewed the medical record and/or the pre-anesthesia evaluation, pertinent labs, and test results. This contains updated information obtained within 48 hours of Surgery/Procedure. SIGNATURE: Roger Franco MD PATIENT NAME: Per Farmer DATE: July 22, 2020 TIME: 8:52 AM CSN: [id number] Normal [facility] HCG, Quantitative Blon 07-22 HCG, Quantitative Bl <0.6 Normal <5.0 [facility] Comment on above: Result Comment: NEGA TIVE Performed By: #### H CGQT #### [facility] [address] [facility] [phone] HISTORY PHYSICALon 0 HISTORY PHYSICAL HNO ID: [id number] Author: Jeffrey Medina Service: General Surgery Author Type: Physician Type: HANDP Filed: 07/22/2020 9:08 AM Note Text: This Team Access Model visit is a phone encounter.? It required patient-provider interaction for the medical decision making as documented below. This visit was performed virtually due to the COVID-19 epidemic as an effort to protect patients and minimize exposure. The patient consents to this type of visit and has been verified by birthdate. ? Per Farmer a 24 year old female who is a consultation requested by Natasha Vitale APRN, for an opinion regarding rectal bleeding and fecal incontinence. My final recommendations will be communicated back to the requesting provider by way of shared Medical record. The patient has not been seen previously. The patient reports a family history of colon cancer in that her maternal grandmother had the disease. ? The patient has a history of asthma, depression, PTSD, seizures and anemia. ? ? Component Latest Ref Rng AND Units 05/27/2019 05/31/2019 06/22/2019 01/30/2020 WBC 3.70 - 11.00 k/uL 5.52 5.51 8.36 5.85 RBC 3.90 - 5.20 m/uL 4.21 4.38 4.35 4.82 Hemoglobin 11.5 - 15.5 g/dL 11.0 (L) 11.1 (L) 10.9 (L) 13.0 Hematocrit 36.0 - 46.0 % 34.6 (L) 35.8 (L) 35.8 (L) 42.7 MCV 80.0 - 100.0 fL 82.2 81.7 82.3 88.6 MCH 26.0 - 34.0 pG 26.1 25.3 (L) 25.1 (L) 27.0 MCHC 30.5 - 36.0 g/dL 31.8 31.0 30.4 (L) 30.4 (L) RDW-CV 11.5 - 15.0 % 16.1 (H) 16.4 (H) 15.8 (H) 13.9 Platelet Count 150 - 400 k/uL 294 313 358 330 MPV 9.0 - 12.7 fL 9.7 10.2 10.0 10.0 Neut% % 52.4 57.2 56.4 50.9 Abs Neut (ANC) 1.45 - 7.50 k/uL 2.88 3.13 4.70 2.97 Lymph% % 36.6 33.0 33.4 39.1 Abs Lymph 1.00 - 4.00 k/uL 2.02 1.82 2.79 2.29 [place]% % 9.2 7.3 8.3 7.4 Abs [place] <0.87 k/uL 0.51 0.40 0.69 0.43 Eosin% % 0.9 1.6 1.2 1.7 Abs Eosin <0.46 k/uL 0.05 0.09 0.10 0.10 Baso% % 0.9 0.9 0.7 0.9 Abs Baso <0.11 k/uL 0.05 0.05 0.06 0.05 Nucleated Reds 0 /100 WBC 0.0 0.0 0.0 0.0 Absolute nRBC <0.01 k/uL <0.01 <0.01 <0.01 <0.01 Diff Type ? Auto Diff Auto Diff Auto Diff Auto Diff ? Component Latest Ref Rng AND Units 05/31/2019 01/30/2020 Ferritin 14.7 - 205.1 ng/mL 8.7 (L) 54.1 ? Component Latest Ref Rng AND Units 05/31/2019 01/30/2020 Iron 41 - 186 ug/dL 18 (L) 46 TIBC 232 - 386 ug/dL 300 260 Transferrin Saturation 15 - 57 % 6 (L) 18 ? ? Chief complaint: Having bowel movement anywhere from several in a day to once every couple weeks. She can see blood through the bowel movement. The stool is blackish green since starting iron. She has diarrhea that can be urgent. There are times of incontinence. She had this prior to starting iron. No stool studies were done. ? Reports that she has intermittent lower abdominal pain. What she eats can make it worse. Uzbek or Zambian food can make it worse. She takes dicyclomine three times a day. It doesn't seem to help. ? The patient had a CT scan at [facility] on 01/14/20: FINDINGS: Evaluation of the abdominopelvic organs is limited in the absence of contrast. LOWER THORAX: No consolidation or pleural effusion. LIVER: No concerning focal lesion. GALLBLADDER: No radiopaque calculi. BILE DUCTS: No significant biliary dilatation. SPLEEN: Unremarkable. PANCREAS: Unremarkable. ADRENAL GLANDS: Unremarkable. KIDNEYS/URETERS: Unremarkable. BOWEL: No bowel obstruction. No significant bowel wall thickening. No localized inflammation. Prominent small bowel fluid. APPENDIX: No evidence of appendicitis. FREE FLUID: Small amount of pelvic free fluid. FREE AIR: None. LYMPH NODES: No pathologic appearing adenopathy. PERITONEUM, RETROPERITONEUM AND MESENTERY: Otherwise unremarkable. VASCULATURE: Unremarkable as imaged. ABDOMINAL WALL: Unremarkable. PELVIS: Unremarkable bladder. Right ovarian cyst measuring 3 cm OSSEOUS AND SOFT TISSUE STRUCTURES: No acute skeletal findings. ? IMPRESSION: Prominent small bowel fluid, a nonspecific finding which can be seen with enteritis. Right ovarian cyst. Individualized dose optimization techniques were used for this CT. ? Doesn't have much of an appetite. She doesn't get hungry. The only time she might get nauseated is when the diarrhea is bad (and she's sitting on the toilet). Reports that her weight fluctuates anyway, so not sure if it's a problem. ? ? REVIEW OF SYSTEMS: GENERAL: No fever, notable weight loss or malaise. RESPIRATORY: Asthma. Uses an inhaler. CARDIOVASCULAR: Negative for chest pain, leg swelling, hypertension, CHF or palpitations GI: The patient states that her appetite has been adequate. She does not get hungry. There has been some nausea, no vomiting. She denies dysphagia and denies odynophagia. There has not been indigestion or heartburn. There has not been regurgitation. Bowel habits have been irregular, as reported above. The patient admits to rectal bleeding. There has been melena. Intermittent abdominal pain that is located in the entire lower abdomen. CUSTOMER ENGAGEMENT MANAGER: Negative for abnormal vaginal bleeding, abnormal vaginal discharge. LMP: December. MUSCULOSKELETAL: Negative for joint pain or swelling, back pain or muscle pain PSYCH: Positive for depression: and PTSD HEMATOLOGY/LYMPHOLOGY Negative for prolonged bleeding, bruising easily or swollen nodes ENDOCRINE: Negative for thyroid. Experiences hypoglycemia. NEURO: Seizures - will be hospitalized 02/20 for testing All other reviewed and negative other than HPI. ? ? ? PAST MEDICAL HISTORY PAST MEDICAL HISTORY Diagnosis Date - Anemia ? - Asthma ? - Deafness ? - Depression ? - Developmental delay ? - Hearing impaired person, right ? - Hypoglycemia ? - disorder ? ? alcohol syndrome. - PTSD (post-traumatic stress disorder) ? - Seizures (HCC) 12/01/2017 ? ? PAST SURGICAL HISTORY No past surgical history on file. ? FAMILY HISTORY FAMILY HISTORY Adopted: Yes Problem Relation Age of Onset - Colon Cancer Maternal Grandmother ? ? ? CURRENT MEDICATIONS Current Outpatient Medications Medication Sig Dispense Refill - topiramate (TOPAMAX) 50 mg tablet Take 1 tablet by mouth twice daily. 180 tablet 0 - naproxen (NAPROSYN) 500 mg tablet Take 1 tablet by mouth twice daily as needed (pain/inflammation, take with food.). 20 tablet 0 - albuterol (PROVENTIL) 2.5 mg/3 mL (0.083 %) nebulizer solution Use 3 mL via nebulizer every 4 hours as needed for Wheezing/Shortness of Breath. Use 2.5 mg via nebulizer. 50 Vial 3 - albuterol HFA (VENTOLIN HFA) 90 mcg/actuation inhaler Inhale 2 Puffs as instructed every 4 hours as needed. 1 Each 1 - sertraline (ZOLOFT) 100 mg tablet Take 1.5 tablets by mouth once daily. 45 tablet 2 - COMPOUNDED PRESCRIPTION crutches 1 Each 0 - calcium carbonate/vitamin D3 (CALCIUM 500 + D ORAL) Take by mouth. ? ? - ferrous sulfate 325 mg (65 mg iron) tablet Take 1 tablet by mouth twice daily with meals. 60 tablet 5 - Omeprazole 40 mg capsule Take 40 mg by mouth once daily. ? 2 - dicyclomine (BENTYL) 10 mg capsule Take 10 mg by mouth before meals and at bedtime. ? ? - ascorbic acid, vitamin C, (VITAMIN C) 500 mg tablet Take 500 mg by mouth once daily. ? ? - folic acid 400 mcg tablet Take 400 mcg by mouth once daily. ? ? - biotin 1,000 mcg chew Take by mouth. ? ? - naproxen (NAPROSYN) 500 mg tablet Take 500 mg by mouth twice daily with meals. ? ? 0 ? No current facility-administered medications for this visit. ? ? ? SOCIAL HISTORY: Patient is single. She smokes 1/4 ppd. Per reports her alcohol use as occasionally. ? ? PHYSICAL EXAMINATION: No PE or vitals since telemedicine ? ? Impression: Altered bowel habits 2)anemia - stable with supplement 3)rectal bleeding ? ? The patient and I formulated the following plan: Continue current medications. Stools studies. Colonoscopy when able, will need MAC - I will contact her when I get the stool studies back and we'll go from there. This visit was 17 minutes in length. ? Della Pulliam RN TEACHER CCLC.GROVE SUPERINTENDENT ?3:50 PM [facility] NURSING PROGon 07-22-2020 NURSING PROG HNO ID: [id number] Author: Javi Gibson RN Service: Nursing Author Type: Registered Nurse Type: Nursing Progress Note Filed: 07/22/2020 11:45 AM Note Text: Nursing Progress Note Patient Name: Per Farmer Patient Location: [facility] End[facility] Endo Daily Note: Transport called for pt and her friend, will not be here until 12:30, friend went to get food for them, pt with no distress This note was completed by: Javi Gibson RN [facility] NURSING PROG HNO ID: [id number] Author: Javi Donato) Arthur, EDNA Service: Nursing Author Type: Registered Nurse Type: Nursing Progress Note Filed: 07/22/2020 11:27 AM Note Text: Nursing Progress Note Patient Name: Per Farmer Patient Location: [place] End[facility] Endo Daily Note: Pt tup to restroom, voiding without diff This note was completed by: Javi Gibson RN [facility] PT EDon 07-22-2020 PT ED HNO ID: [id number] Author: Javi CentenoRn) EDNA Gibson Service: Nursing Author Type: Registered Nurse Type: Patient Education Filed: 07/22/2020 11:28 AM Note Text: PATIENT EDUCATION TOPIC: PROCEDURE / SURGERY: Post Procedure Teaching: PATIENT NAME: Per Farmer PATIENT LOCATION: [place] Endo/[facility] Endo READINESS TO LEARN COGNITIVE ABILITY: Alert and oriented MOTIVATION TO LEARN: Interested FAMILY SUPPORT: Moderate - Family present but overwhelmed INSTRUCTION PROVIDED TO: Patient PATIENT LEARNS BEST BY: Individual Instruction Verbal Instruction FACTORS AFFECTING LEARNING: None PHYSICAL LIMITATIONS AFFECTING LEARNING: None LEARNING RESPONSE DIAGNOSIS: ADULT: PATIENT/FAMILY RESPONSE: Verbalizes understanding of: METHOD OF INSTRUCTION: Individual instruction Verbal instruction FOLLOW-UP PLAN: Patient instructed to call with any further issues Follow-up with Primary Care INSTRUCTIONAL AIDS USED: NA SUPPLEMENTAL MATERIAL PROVIDED TO PATIENT: None REFERRAL (RECOMMENDATION): None Electronically Signed By: Javi Gibson RN [facility] PT ED HNO ID: [id number] Author: Hugo CentenoRn) EDNA Chung Service: Nursing Author Type: Registered Nurse Type: Patient Education Filed: 07/22/2020 8:35 AM Note Text: PRE OP LEARNING ASSESSMENT PROCEDURE/SURGERY: GI PROCEDURES: Colonoscopy and EGD READINESS TO LEARN COGNITIVE ABILITY: Alert and oriented MOTIVATION TO LEARN: Eager FAMILY SUPPORT: High - Very involved in pt care PATIENT LEARNS BEST BY: Individual Instruction Verbal Instruction FACTORS AFFECTING LEARNING: None PHYSICAL LIMITATIONS AFFECTING LEARNING: None Electronically Signed By: Hugo Chung RN In Department: [facility] SURGICAL PATHOLOGYon 020 SURGICAL PATHOLOGY Specimen originated from [facility] Specimen #: [id number] Submitting Physician: Jeffrey Medina M.D. FINAL DIAGNOSIS 1. Esophagus, distal and mid, multiple biopsies (A, B) - Squamous esophageal mucosa with no significant pathologic change. 2. Stomach, antrum, biopsy (C) - Gastric antral mucosa with no significant pathologic change. - No intestinal metaplasia or morphologic evidence of Helicobacter pylori organisms. 3. Jejunum, biopsy (D) - Small intestinal mucosa with no significant pathologic change. 4. Terminal ileum, biopsy (E) - Small intestinal mucosa with no significant pathologic change. 5. Colon, random, biopsy (F) - Colonic mucosa with no significant pathologic change. [facility] 07/23/2020 Jocelyn Ayala M.D. (Electronic Signature) SPECIMEN SUBMITTED A: DISTAL ESOPHAGUS, BIOPSY B: MID ESOPHAGUS, BIOPSY C: GASTRIC ANTRAL, BIOPSY D: JEJUNUM, BIOPSY E: TERMINAL ILEUM, BIOPSY F: RANDOM COLON, BIOPSIES CLINICAL DATA GERD, DIARRHEA, LMP: NA C: R/O H. PYLORI GROSS DESCRIPTION A. Received in formalin is one piece of son, soft tissue measuring 0.4 x 0.2 x 0.1 cm. Totally submitted in one cassette. B. Received in formalin is one piece of son, soft tissue measuring 0.3 x 0.2 x 0.1 cm. Totally submitted in one cassette. C. Received in formalin is one piece of son, soft tissue measuring 0.3 x 0.3 x 0.2 cm. Totally submitted in one cassette. D. Received in formalin is one piece of son, soft tissue measuring 0.3 x 0.3 x 0.2 cm. Totally submitted in one cassette. E. Received in formalin is one piece of son, soft tissue measuring 0.5 x 0.3 x 0.2 cm. Totally submitted in one cassette. F. Received in formalin are two pieces of son, soft tissue aggregating to 0.6 x 0.2 x 0.1 cm. Totally submitted in one cassette. Gross examination performed at [facility], [address] [place] [address] 07/22/2020 5:07:22 PM Date of Report: 07/23/2020 Date of Procedure: 07/22/2020 Date of Receipt: 07/22/2020 Submitted by: Jeffrey Medina M.D. Location: [facility] Diagnostic [place] [address]. [place] Number: [id number] [facility] HOSPon 06-07-2020 HOSP Patient:Hubert Farmer MRN: Height:5' 7(1.702 m) Weight:173 lb 12.8 oz (78.835 kg) Outpatient Medications as of 07/22/20: albuterol (PROVENTIL) 2.5 mg/3 mL (0.083 %) nebulizer solution etodolac (LODINE) 400 mg tablet albuterol HFA (VENTOLIN HFA) 90 mcg/actuation inhaler Lancets lancets folic acid 1 mg tablet blood sugar diagnostic (BLOOD GLUCOSE TEST) test strip Omeprazole 40 mg capsule ferrous sulfate 325 mg (65 mg iron) tablet topiramate (TOPAMAX) 50 mg tablet sertraline (ZOLOFT) 100 mg tablet calcium carbonate/vitamin D3 (CALCIUM 500 + D ORAL) dicyclomine (BENTYL) 10 mg capsule Admission/Clinic Administered Medications as of 07/22/20: lactated ringers infusion NaCl 0.9% iv infusion Problem List: Chronic RLQ pain [R10.31, G89.29] Nicotine use disorder, F17.2 [F17.200] Developmental delay [R62.50] Psychogenic nonepileptic seizure [F44.5] Hearing impaired person, bilateral [H91.93] Depression [F32.9] PTSD (post-traumatic stress disorder) [F43.10] neurological disorder [P96.89, R29.818] Acute pain of left knee [M25.562] Asthma [J45.909] Migraine [G43.909] GERD (gastroesophageal reflux disease) [K21.9] NICOLETTE (iron deficiency anemia) [D50.9] Altered bowel habits [R19.4] Allergies: Amoxicillin Carbocaine [Mepivacaine Hcl] Lidocaine Mushroom Nexplanon [Etonogestrel] Novacain [Procaine Hcl] Date Verified: 07/22/20 Lab Values No results within the last 30 days for the following basenames: K,HCT Progress Notes ([facility]): Lawanda Wilkes, BREANA.BAKARI 07/19/2020 8:07 AM Signed Please fax order for albuterol to [facility]. Is in my out box. Thanks, Lawanda Wilkes, BREANA.BAKARI Ward, JAMES, JAMES 07/19/2020 9:22 AM Signed [facility]. Progress Notes ([facility]): Aimee Womack Ma 07/18/2020 5:21 PM Signed RX INSTRUCTIONS: Patient aware RX will be sent to pharmacy. No need to notify patient. Last OV: 05/30/20-Virtual Guerline Last refill: 03/19/20 With 50 and 3 refills Last oarrs report completed: N/A PLEASE REVIEW ON [facility] Follow up: No F/U appt scheduled at this time. Aimee Womack Ma [facility] IO HCG, Urine Test on 06-05-2020 HCG ( test) Ql (U) Negative [facility] chmond 100 Work Phone: Imm/Pathon 06-05-2020 Cytology report Cyto stain.thin prep Doc (Cvx/Vag) Date of Procedure: 06/05/2020 Pathologist: AUDIE ALBRECHTate Reported: 06/17/2020Date Received: 06/05/2020Submitting Physician: MANNY DANIEL CNPAttending Physician: MANNY DANIEL CNP FINAL CYTOLOGICAL INTERPRETATIONSquamous and/or Glandular AbnormalityA. THINPREP PAP CERVICAL: Specimen adequacy: SATISFACTORY FOR EVALUATION. Quality Indicator: Endocervical/transformation zone component is present. General Categorization: EPITHELIAL CELL ABNORMALITY - SQUAMOUS CELL. See Interpretation. Descriptive Interpretation: ATYPICAL SQUAMOUS CELLS OF UNDETERMINED SIGNIFICANCE (ASC-US) - CERVIX. SHIFT IN VAGINAL TANA SUGGESTIVE OF BACTERIAL VAGINOSIS. This specimen has been analyzed by the [employer] HelperPrep Imaging System ([employer]an automated imaging and review system, which assists the laboratory inevaluating cells on ThinPrep Pap tests. Following automated imaging, selectedfields from every slide were reviewed by a value engineer and/or pathologist.Electronically Signed Out By AGGIE MOLINA MD/IVETTE/ERROL By the signature on this report, the individual or group listed as making theFinal Interpretation/Diagnosis certifies that they have reviewed this case.Educational Note:Cervical cytology is a screening procedure primarily for squamous cancers andprecursors and has associated false-negative and false-positive results asevidenced by published data. Your patient's test should be interpreted in thiscontext, together with patient's history and clinical findings. Regularsampling and follow-up of unexplained clinical signs and symptoms arerecommended to minimize false negative results. Clinical HistoryDate of Last Menstrual Period: n/aContraceptive History:Depo ProveraPrevious Abnormal Cytology:LSILOther Clinical Conditions:AnnualLast PAP Test Date: 05/09/19Clinical Diagnosis History: Low grade squamous intraepithelial lesion oncytologic smear of cervix (LGSIL) - (R87.612) Source of SpecimenA: THINPREP PAP CERVICAL [facility] 100 Work Phone: IO HCG, Urine Test on 03-18-2020 HCG ( test) Ql (U) Negative [facility]-Be dford 44 Work Phone: [facility] 09-19-2018 [place] [facility] REPORT Normal [facility] DATE OF SERVICE: 09/19/2018HISTORY: A 23-year-old female with head pressure, cheek pain. Says this has beengoing on since September 01, 2018.PAST MEDICAL HISTORY: She has a history of epilepsy and apparently was just seen forthat and they put her on a monitor. This was at [facility]. She says she isdeaf, ADHD, anemia, asthma, headaches, diabetes, positive smoking, positive alcoholapparently. Has a primary care but cannot see the primary care until September.CURRENT MEDICATIONS:1. Zoloft.2. Sumatriptan.3. Nortriptyline.4. Inhaler/nebulizer.ALLERGIES: AMOXICILLIN, NEXPLANON, MUSHROOMS.PHYSICAL EXAMINATION: Vital signs: Blood pressure 1160/70, pulse 78, respiratoryrate 14, temperature 98.2. Pulse oximetry 99% on room air. HEENT: Cranial nervesII-XII intact. Pupils equally round and reactive to light and accommodation. Thereare no signs of photosensitivity. Extraocular movements intact. Normal TMsbilaterally, normal pharynx. No signs of shingles. Full range of motion at theneck. Bilateral maxillary sinus tenderness. Lungs: Clear to auscultation.Cardiovascular: Regular rate and rhythm. Overall she looks well.DIAGNOSIS: Acute sinusitis. I do think the headache may be related to her chronichistory of epilepsy and migraines or sinus infection. Patient has been on a Z-Pakbefore; therefore we will prescribe that. I encouraged her to have some followupwith her primary care doctor or, if worse, especially the headache, she may go downto the ER for that. MARTA Isabel/[id number]: 09/19/2018 12:16DT: 09/20/2018 12:26SSI File#: [id number] #: [id number]/Reviewed by [facility] PATIENT NAME: PRE FARMER [id number] Mica Ramires MEDICAL REC #: [id number], [place] [address] STATCARE REPORT [facility]ARE DECIWYVKW34/27/18 0904 [place] *[facility] PATIENT NAME: PER FARMER [facility] Dr. Ramires MEDICAL REC #: [id number], [place] [address] STATCARE REPORT STAT[facility]ARE PHYSICIAN [facility] CT HEAD/BRAIN W/O CONon 04-29 CT HEAD/BRAIN W/O CON CT HEAD/BRAIN W/O CONOrdering Physician: Justin Silverman MD05/12/2018 11:50 PMCT HEAD/BRAIN WITHOUT IV CONTRAST:Clinical Statement: Headache, patient hit for head tonight, unable toprovide further detail, unsure loss of consciousness, headache alloverComparison: NoneTECHNIQUE: 2.5 mm axial tomographic images were acquired through theposterior fossa followed by 5 mm thick slices through thesupratentorial brain without intravenous contrast administration.FINDINGS: No intracranial hemorrhage or abnormal extra-axial fluidcollection is seen. The ventricles are normal in size. No mass, masseffect, or shift of the midline structures is seen. Hernandez-whitedifferentiation is maintained. There is no sulcal effacement.The included skull base and calvarium demonstrate no acuteabnormality. The visualized paranasal sinuses and mastoid air cellsare clear.IMPRESSION:No acute intracranial abnormality. Dictated by Telecom Coordinator: Dayana Farah and Signed by: Jeronimo Tate MD---- Electronic Signature on File ----Signed By: Jeronimo Tate [email or web address]: 05/12/2018 1:03 AMSigned: 05/12/2018 7:37 AM Reported By: JERONIMO TATE M.D. Signed By: JERONIMO TATE M.D. [facility] ED DOCon 05-12-2018 ED DOC PHYSICIA N ASSESSMENT ==RECORDS: FlexChartDataEvent Time: 05/11/2018 23:55Status: [facility]а [[id number]]Att ending [id number] / F / 1995Chart (V2b)Chart created at 05/11/2018 23:46 by Justin SilvermanChart closed at 05/12/2018 01:20Entry in Emergency Department at 05/11/2018 20:58Patient Name: Per Farmer Record Number: [id number]: 05/11/2018 23:46Entered Department at: 05/11/2018 20:58 Patient Seen at:05/11/2018 23:18 Historian: PatientPCP: *None,.Chief Complaint:Patient c/o headache that began today.Patient denies any injuriesTriage Note reviewed and Initial Vital Signs reviewed.Temperature: 98.2 F (36.8 C). Pulse: 66. Respiratory Rate:18. Blood-pressure:125/80. Oxygen Saturation: 93%.History of Present Illness:Patient said shes had a headache today left-sided sinceshe had her head while walking through a junglegym. She gets headaches every other day and her Wisterphysician used to try to give her Imitrex and itdid not help. She gets headaches for about 2 years now andhas never had a CAT scan. Shes not seenneurology or followed up with anyone. Headache is sharp andaching over the area where she bumped her [facility] PATIENT NAME: PER FARMER [facility] MEDICAL REC #: [id number], [place] [address] DEPARTMENT CHART EMERGENCY DEPARTMENT PHYSICIANhead. There is no loss of consciousness and it happened 10hours ago. She vomited once at dinnertime.Shes not sure shes .Denies numb or [place] to arms or legs and denies syncopeblurred vision or double vision. No neck pain.No severe swelling of the head where she had. She did notfall from a height she was S he trying to getout of the [employer] gym when she hit her headshe has just moved here from [place] recently. She is herewith her grandfatherHPI Elements: Onset: 10 Hours ago; Timing: Gradual;Quality: Aching; Severity: maximum Mild, now Mild;Context: At RestReview of Systems. Constitutional: negative for Fever Eyes:negative for Eye Pain Ear/Nose/Throat:negative for Sore Throat Cardio-Vascular: negative forChest Pain Respiratory: negative for HemoptysisGI: negative for Abd. Pain : negative for HematuriaMusculo-Skeletal: negative for Back PainNeurological: positive for Headache Hem/Endo: negative forBleeding Immunology: negative for Joint PainAll other systems reviewed and negative..Past History, Medications, Allergies, Social History andFamily History reviewed in nurses note.Past Medical History:headachesMedications : Reviewed RN Note.SERTRALINE PO ,CLONIDINE PO ,PER PATIENT 05/11/18Allergies: Reviewed RN NoteLidocaine Hydrochloride(Swelling)Socia l History: Reviewed RN Note. SingleFamily History: Reviewed RN Note [facility] PATIENT NAME: PRE FARMER M13Armen [facility] Dr[facility] Ramires MEDICAL REC #: [id number], [place] [address] DEPARTMENT CHART EMERGENCY DEPARTMENT PHYSICIANPhysical Examination: General: Alert and Well Developed;awake and alert, a wire of her surroundings,full range of motion of arms and legs. No sign of injuryabout her head neck or shoulders. Both TMs arenormal. HEENT: Normal ENT inspection. Eyes: Lids Normal;. Oropharynx/ Throat: Normal Pharynx. Neck: No Lymphadenopathy, NoMeningismus and Supple Respiratory: No RespDistress, Chest non-tender and Normal Breath SoundsCardio-Vascular: No murmur, No rub and RRR Abdomen:No Organomegaly, Non-tender and Soft Back: No CVAtenderness, No Midline Tenderness and Non-tenderExtremity: No edema and Normal Equal pulses Neurological:Alert, Oriented X3 and No Gross Weakness Skin:No rash, No Petechiae, Warm and Dry Psychological:Mood/Affect Normal and Normal Memory/JudgmentURINE , information as of 05/11/2018, 11:51 pmUR HCG QUAL: Neg; UR SPEC GRAV: 1.026Imaging Study Obtained:CT (HEAD/BRAIN) WO CONTImaging Study Obtained:CT HEAD/BRAIN W/O CON, Status:Signed Report AvailableCT HEAD/BRAIN W/O CONOrdering Physician: Justin Silverman MD05/12/2018 11:50 PMCT HEAD/BRAIN WITHOUT IV CONTRAST:Clinical Statement: Headache, patient hit for head tonight,unable toprovide further detail, unsure loss of consciousness,headache alloverComparison: NoneTECHNIQUE: 2.5 mm axial tomographic images were acquiredthrough the [facility] PATIENT NAME: PER FARMER [facility] Dr[facility] Ramires MEDICAL REC #: [id number], [place] [address] DEPARTMENT CHART EMERGENCY DEPARTMENT PHYSICIANposterior fossa followed by 5 mm thick slices through thesupratentorial brain without intravenous contrastadministration.FINDI NGS: No intracranial hemorrhage or abnormalextra-axial fluidcollection is seen. The ventricles are normal in size. Nomass, masseffect, or shift of the midline structures is seen.Hernandez-whitedifferentiati on is maintained. There is no sulcaleffacement.The included skull base and calvarium demonstrate no acuteabnormality. The visualized paranasal sinuses and mastoidair cellsare clear.IMPRESSION:No CT evidence of acute intracranial abnormality. 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 Its been 2 years and theyrethis often, CT should be at least performed once to ensureno other lesions are noted. With herheadaches, she will have a CT scan. test is [facility] PATIENT NAME: PER FARMER M13[address] [facility] [address] Ramires MEDICAL REC #: [id number], [place] [address] DEPARTMENT CHART EMERGENCY DEPARTMENT PHYSICIANpending. Does not show any disability at this timeand is awake and alertRe-Evaluation:01:19: will need followup. CT negative. no bleeding.chronic headaches. will give followup.s.Clinical Impression:1. headache2. head contusion leftDisposition: Discharged *Home at 11 May 2018, 23:50.Condition: GoodMSE completed.I was the primary ED attending.. at 01:20: Discharge ReportEvent Time: 05/12/2018 01:21===DISCHARGE REPORT===: FlexChartDataEvent Time: 05/11/2018 23:55: Discharge ReportEvent Time: 05/12/2018 01:21Status: DraftReasons to Return to the ER:You must return to the ER for any new, worsening orchanging symptoms, or if you feel more ill or sick inany way. This is the most important thing to remember.Follow-up:The care you received in the ER was given on an emergencybasis only, and it is often not possible tocompletely treat or diagnose a problem in a single ERvisit. You must see your follow-up doctor for a [facility] PATIENT NAME: PER FARMER M13[address] [facility] [address] Ramires MEDICAL REC #: [id number], [place] [address] DEPARTMENT CHART EMERGENCY DEPARTMENT PHYSICIANrecheck within a week unless you receive instructions witha different timeframe for follow-up. Pleasefollow all your discharge instructions.Medications:Unl ess the ER doctor tells you differently, you should takeall your regular medications and any newmedications prescribed today. Because it is not possiblefor the ER doctor to review all of yourmedication side effects or interactions, you must reviewpossible side effects and interactions with yourpharmacist when you get your prescriptions filled.EKG and Radiology Results:A knotting machine operator portable or radiologist will review any EKG orradiology results provided by the ER doctor. We willcontact you if the results in the final EKG or radiologyreports require a change in treatment.Culture Results:Cultures may have been ordered during your ER visit. Wewill contact you if the culture results require achange in treatment.Referrals:Most referrals to specialists come from the on-call listYou should make your regular doctor aware of anyreferrals before you schedule the appointment so that theyare aware and can make suggestionsDIAGNOSIS:headach e, head contusion leftINSTRUCTIONS:recheck with medical doctor regarding headaches. Tylenoland advil for this pain now.It is very important that a responsible person stay withthe patient to watch for head injury symptomsover the next 24 hours. During this 24 hours, the patient [facility] PATIENT NAME: EPR FARMER M13[address] [facility] [address] Ramires MEDICAL REC #: [id number], [place] [address] DEPARTMENT CHART EMERGENCY DEPARTMENT PHYSICIANmust be observed closely and should be awakenedevery 3-4 hours while sleeping (even at night).UNLESS THE ER DOCTOR GIVES YOU OTHER INSTRUCTIONS, YOU MUSTSEE YOUR FOLLOW-UP DOCTOR WITHIN 2 TO 3 DAYSFOR RECHECK.YOU MUST RETURN TO THE ER RIGHT AWAY FOR ANY OF THEFOLLOWING:New or increasing headacheNew or increasingnausea or vomitingFever or chillsNew or moreseizuresDrainage or bleeding from the nose or earsIncreasingconfusion or dizzinessWeakness in the arms or legsNew orincreasing vision problemsSlurred speechUnequalpupilsJust not acting rightAfter careful evaluation, the doctor feels that it is OK tosend you home at this time. Justbecause you were not admitted into the hospital today doesnot mean that your head injury may not becomemore serious. Even very serious problems, like brainswelling or bleeding, can start with a normalexamination or test results. You should avoid alcohol andaspirin, unless you are taking theaspirin for another medical problem. You must use all ofyour regular medications plus all themedications that were given to you today.It is very important that a responsible person stay withthe patient to watch for head injury symptomsover the next 24 hours. During this 24 hours, the patientmust be observed closely and should beawakened every 3-4 hours while sleeping (even at night).UNLESS THE ER DOCTOR GIVES YOU OTHER INSTRUCTIONS, YOU MUSTSEE YOUR FOLLOW-UP DOCTOR WITHIN 2 TO 3 DAYSFOR RECHECK.YOU MUST RETURN TO THE ER RIGHT AWAY FOR ANY OF THEFOLLOWING:New or increasing headacheNew or increasingnausea or vomitingFever or chillsNew or moreseizuresDrainage or bleeding from the nose or earsIncreasingconfusion or dizzinessWeakness in the arms or legsNew orincreasing vision problemsSlurred speechUnequalpupilsJust not acting rightUNLESS THE ER DOCTOR GIVES YOU OTHER INSTRUCTIONS, YOU MUST [facility] PATIENT NAME: PER FARMER M13[address] [facility] [address] Ramires MEDICAL REC #: [id number], [facility] DEPARTMENT CHART EMERGENCY DEPARTMENT PHYSICIANSEE YOUR FOLLOW-UP DOCTOR WITHIN 2 TO 3 DAYSFOR RECHECKYOU MUST RETURN TO THE ER RIGHT AWAY FOR ANY OF THEFOLLOWING:Increasing or changing painNew orincreasing vision problemsNew or increasing problems withbalanceNew or increasing confusion, dizzinessor weaknessNew or increasing vomitingNew or increasingfever or chillsNew or increasing neck stiffnessNewor increasing numbness or weakness in the arms or legsMadison Hospital, Address: [address] [place] [id number], Please call the above number to schedule a follow-upappointment.[facility]), Address: [address] [place] [address], , fax: Please call the above number to schedule a follow-upappointment.Hugo Gillis DO (Neurology), , fax: Please call the above number to schedule a follow-upappointment.next weekMEDICATIONSWe have given you these prescriptions that you must filland start taking:NoneCOMMENTS:Patient Satisfaction:Within the first few days after your visit, you will [facility] PATIENT NAME: PER FARMER M[address] Ramires MEDICAL REC #: [id number], [place] [address] DEPARTMENT CHART EMERGENCY DEPARTMENT PHYSICIANreceive an email and/or phone call regarding yourvisit. We value your feedback, and would appreciate it ifyou would take the time to complete this shortsurvey. If you receive a call, it will be between 6p and 8p.My signature below indicates that I have received andunderstand the oral instructions regarding mymedical problem. I also acknowledge receipt of this writteninstruction sheet including a list of majortests and procedures ordered during my visit. I willarrange for follow-up care as indicated by theseinstructions and referrals.This signed original will be kept in my medical record.Your signature below indicates consent for Case Managementto contact [facility]care providers in [facility] to meet your ongoing healthcare needs. This willallow forcontinuity of care once you leave theEmergency Department. This exchange of informationwillinclude, but not be limited to, disclosure of yourpatient information and possible release ofrecords. ==DEMOGRAPHICS ======Emergisoft Patient: PER FARMERSex: FDOB: 1995Age: 22 yrAccount No: [id number]: [id number] Date: 20:58 05/11/2018Address: [address]Address: [place] [address] XFH ISTRATION =ED Number: [id number]: Marital Status: SFinancial Class: CAIDHMO T [facility] PATIENT NAME: [facility] FARMER M[address] [facility] [address] [facility] MEDICAL REC #: [id number], [place] [address] DEPARTMENT CHART EMERGENCY DEPARTMENT PHYSICIANPriority: 3 - UrgentComplaint: HeadacheStated Complaint: Patient c/o headache that begantoday. Patient denies any injuriesArrival Date: 05/11/2018 20:58Triage Date: 05/11/2018 20:59Mode of Arrival: *Privately Owned VehicleTransfer From: * HomeW: NLanguage: EnglishTransport: Ambulatory/Walk In BED=== C26 In: 05/11/2018 23:00:48 05/11/201823:00:48 JLRC26 (Removed From) Out: 05/12/2018 02:11:10005/12/2018 02:11:10 MJHA PROV IDERS MD Justin Silverman Provider Contact: 05/11/201823:17:52 Berenice:RNBERENICEU JESSE MARTINEZ Provider Contact:05/11/2018 23:18:37 MARCIEnd: TRIAGE HISTORY A LLERGIESAllergic To: Lidocaine Hydrochloride - Jpzsflgg64/13/2018 21:04 BMGACURRENT MEDSName: SERTRALINE PO 05/11/2018 21:04 BMGAName: CLONIDINE PO 05/11/2018 21:04 BMGA [facility] PATIENT NAME: PER FARMER M[address] [facility] [address] Ramires MEDICAL REC #: [id number], [place] [address] DEPARTMENT CHART EMERGENCY DEPARTMENT PHYSICIANName: PER PATIENT 05/11/18 05/11/2018 21:04 BMGAILLNESSIllness: Seizures 05/11/2018 21:04 BMGAIllness: Depression 05/11/2018 21:04 BMGAIllness: Anxiety 05/11/2018 21:04 BMGAPAST SURGERY HISTSurgery: None 05/11/2018 21:04 BMGAPAST SOCIAL HISTSocial History: Communicates without hfcrdrqaqp82/13/2018 21:04 BMGASocial History: Lives with family or significant other05/11/2018 21:04 BMGASocial History: Alcohol - None 05/11/2018 21:04 BMGASocial History: Recreational Drugs - None 05/11/201821:04 BMGASocial History: Smoker-OCC PPD 05/11/2018 21:04BMGASocial History: Denies Domestic Violence 05/11/201821:04 BMGASocial History: Denies thoughts of self harm.05/11/2018 21:04 BMGASocial History: Have you traveled in the past month?Where NO 05/11/2018 21:04 BMGAIMMUNIZATIONSImmunizatio n: Flu Vaccine-yes 05/11/2018 21:04 BMGA NURS ING ASSESSMENT ASSESS MENT NOTES [facility] PATIENT NAME: PER FARMER M[address] [facility] [address] Ramires MEDICAL REC #: [id number], [place] [address] DEPARTMENT CHART EMERGENCY DEPARTMENT PHYSICIAN =05/12/2018 02:03 PATIENT A/O X4, SKIN WARM AND DRY WITHGOOD TURGOR, RESP EASY, HIT HEAD ON PLAYGROUND, NO LOC05/12/2018 02:05 MJHA MONE TMENT 02:06 Primary DOC Guide - A. 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 Fall RiskAssessment (Age andlt;65) 05/12/2018 02:07 MJHAHistory of Falling in last 3 months? No (0)Confusion or Disorientation? No (0)Intoxicated or Sedated? No (0)Impaired Gait? No (0)Mobility Assist Device Used? No (0)Altered Elimination? No (0)Fall Risk Score 1-2 Points = Low Risk. 3-4 Points =Moderate Risk. 5 or more points = High Risk. 0Fall Score Greater andgt;= 3? No05/12/2018 02:08 Primary DOC Guide - D. PsychosocialAssessment 05/12/2018 02:09 MJHAOver the Last 2 weeks, how often have you had littleinterest or pleasure in doing things (0) Not at AllIs Psychosocial Assessment Score 3 or more? If score is3 or more please consult ED Navigator! NoTotal Psychosocial Assessment Score 0Over the last 2 weeks, how often have you been feelingdown, depressed or hopeless (0) Not at All05/12/2018 02:09 Primary DOC Guide - E. Family ViolenceAssessment 05/12/2018 02:09 MJHA [facility] PATIENT NAME: PER FARMER M[address] [facility] [address] Ramires MEDICAL REC #: [id number], [place] [address] DEPARTMENT CHART EMERGENCY DEPARTMENT PHYSICIANIndicators of Neglect NoIndicators of Physical Abuse NoIndicators of Sexual Abuse NoIndicators of Verbal/Emotional Abuse NoWithin the past year, has anyone ever pushed, shoved,slapped, choked, hit, punched or kicked you: NoWithin the past year, has anyone ever pressured orforced you to have sexual activities when you did not wantto: NoDo you feel safe and well cared for: YesIs there a partner from a previous or currentrelationship that is making you feel unsafe now: NoFamily Violence Clinical Observation All Negative Weoqpb3405/12/2018 02:10 Discharge - Ambulated with steady gaithome 05/12/2018 02:10 [facility]05/12/2018 02:10 Discharge - Printed dischargeinstructions given reviewed with intrepreter 05/12/201802:10 [facility]05/12/2018 02:10 Discharge - Printed dischargeinstructions given to pt. 05/12/2018 02:10 MJHA MEDI CATIONS IV======= =====I AND O VITALS========= VS-ROUTINE Time: 05/11/2018 20:59B/P: 125/80 - Left Upper Arm - Sitting - MachinePulse: 66 - Monitor Resp: 18Sa02: 93 Room Air Temp: 98.20 F - Oral05/11/2018 21:04 BMGAVS-Pain Time: 05/11/2018 20:59 Pain Level: 10005/11/2018 21:04 BMGAVS-GCS Time: 05/11/2018 20:59 Visual: 4 Verbal: 5 Motor:6 GCS Total: 15 05/11/2018 21:04 BMGA [facility] PATIENT NAME: PER FARMER M[address] [facility] [address] [facility]ires MEDICAL REC #: [id number], [place] [address] DEPARTMENT CHART EMERGENCY DEPARTMENT PHYSICIANVS-HT/WT Time: 05/11/2018 20:59 Ht: 64 in. StatedWeight: 126 lbs Stated 05/11/2018 21:04 BMGAVS-Visual Time: 05/11/2018 20:59 05/11/2018 21:04 BMGAVS-FHT Time: 05/11/2018 20:59 05/11/2018 21:04BMGAVS-Notes Time: 05/11/2018 20:59 map = 96 05/11/201821:04 BMGAVS-ROUTINE Time: 05/12/2018 01:59B/P: 112/77 - Right Upper Arm - Sitting - MachinePulse: 74 - Monitor Resp: 20Sa02: 99 Room Air 05/12/2018 02:01 MJHAVS-Pain Time: 05/12/2018 01:59 Pain Level: 8005/12/2018 02:01 MJHAVS-GCS Time: 05/12/2018 01:59 05/12/2018 02:01 MJHAVS-HT/WT Time: 05/12/2018 01:59 05/12/2018 02:01 MJHAVS-Visual Time: 05/12/2018 01:59 05/12/2018 02:01 MJHAVS-FHT Time: 05/12/2018 01:59 05/12/2018 02:01MJHAVS-Notes Time: 05/12/2018 01:59 MAP 89 05/12/201802:01 MJHA ORDE RS Discha rge patient 05/12/2018 01:26N/AOrdered: 05/12/2018 01:20 By . OtherReviewed: 05/12/2018 01:26 By . OtherPregnancy (urine) 05/12/2018 00:45N/AOrdered: 05/11/2018 23:50 By Justin SilvermanCompleted Time: 05/12/2018 00:45 By Justin SilvermanNoted Time: 05/12/2018 00:19 SAWResults Time: 05/12/2018 00:45CT head/brain w/o con 05/12/2018 01:33N/AOrdered: 05/11/2018 23:50 By Justin SilvermanCompleted Time: 05/12/2018 01:33 By Justin SilvermanIndication: HeadacheQuestion: Are you or think you might be ?Answer: PENDING * [facility] PATIENT NAME: PER FARMER M[address] [facility] [address] [address]ires MEDICAL REC #: [id number], [place] [address] DEPARTMENT CHART EMERGENCY DEPARTMENT PHYSICIANDISCHARGE Diagnosis: headache, head contusion left 05/12/201801:21Disposition: Time: 05/12/2018 01:20Discharge Time: 05/12/2018 02:11Type: DischargeCondition: Stable for admission/discharge/transfer after emergency evaluation/treatment Category: TraumaReferral: 05/12/2018 01:21Admit Physician: . Other PRE SCRIPTIONS CHARGE S SIGNATURE====== Justin SLAUGHTER [facility] PATIENT NAME: PER FARMER [facility]ires MEDICAL REC #: [id number], [place] [address] DEPARTMENT CHART EMERGENCY DEPARTMENT PHYSICIAN Normal [facility] ED Documentation This is a preliminar y report only, as the practitioner review and authentication has not occurred. Normal [facility] URINE PREGNANCYon 05-12-2018 UR HCG QUAL Negative Normal NEGATIVE [facility] Comment on above: Order Comment: Campu s: M Performed By: #### L [id number] ####[facility] [id number] [place], [place] [address]Ju# [phone] UR SPEC GRAV 1.026 Normal 1.005-1.03 0 [facility] Comment on above: Order Comment: Campu s: M Performed By: #### L 600.35216 ####[address] [place], [place] [address]Jw# [phone] DOSETRACKon 05-10-2018 DOSETRACK Normal [facility] DOSETRACK Test Dose report.Ronni rowland: ЕЛЕНА ALBARADO MAccession Number: [id number] Type: CTExam: HEADMax CTDIVol: 54.39 mGyDLP: 606.32 mGy*dnQF5RF HEAD/BRAIN W/O [id number] [id number] [id number] Routine UjxaBtoc954.9020203.48935495 [id number] 30.87040871221844200.1 Routine CuwxIsnw655.2473469.79468948 [id number] 0430.37031640030738227.1 Routine RchjHzlc88.3150191541870.980 179904508.82214.415794.77676 000.1042091202912.13 [facility] PAT[facility]: [facility] MEDICAL REC #: [id number], [place] [address] DATE:DISCHARGE DATE: 05/10/18[facility] ATTENDING PHY: Roger Dunlap [id number] 1.1 Routine WjqsIimp78.0604065696362.340 810039797.51470.8234074.6500 1000.4982133084170.13 [facility] PATIENT [facility]: [facility]ARM[facility] MEDICAL REC #: [id number], [place] [address] DATE:DISCHARGE DATE: 05/10/18[facility] ATTENDING PHY: Roger Dunlap PAC Normal [facility] Almo HAND COMP MIN 3 VWS LTon HAND COMP MIN 3 VWS LT HAND COMP MIN 3 VWS LTOrdering Physician: Taurus Gomez MD05/10/2018 2:23 PMLEFT HAND THREE VIEWSClinical Statement: PainComparison: NoneFINDINGS: Routine views show no fracture, dislocation, jointabnormality or soft tissue calcifications.IMPRESSION:No rmal examination. ---- Electronic Signature on File ----Signed By: Joaquin Regalado MD [email or web address]: 05/10/2018 3:09 PMSigned: 05/10/2018 3:10 PM Reported By: JOAQUIN REGALADO M.D. Signed By: JOAQUIN REGALADO M.D. [facility] DATE OF SERVICE: 10/2018A 22-year-old female comes in with complaints of left hand pain at the base of her2nd, 3rd and 4th metacarpals. She states she works at [employer] and caught her handbetween 2 shelving units and smashed it. She denies numbness and tingling. It hurtswhen she makes a fist. She denies any significant bruising or swelling, and theincident happened yesterday. She has not taken any medications at home for this.She is afraid she may have broken her hand. Denies any other injuries or concerns.Medications, allergies, history reviewed.PHYSICAL EXAMINATION: Vital Signs: All within normal limits. Extremities: Herleft hand has tenderness on the dorsal aspect of her hand at the base of the 2nd,3rd, 4th metacarpals. There is no gross deformity, bruising or swelling. Gripstrength, although painful, is 5/5. Capillary refill 2+. ____ within normal limits.The wrist has full range of motion. She does have rapid alternating movementsintact of her digits, and she has no movement or sensory deficits.X-ray obtained of her left hand revealed no acute fracture.ASSESSMENT AND PLAN: I did apply an ice wrap to her left hand myself while in theurgent care. This will stabilize her wrist more, and she did request this, so Isuspect this would aid in her recovery. I also advised her anti-inflammatories athome, ibuprofen, Advil, Motrin 400 mg every 6-8 hours as needed for pain with food.She was given clearance to work as well. This is likely a contusion given nofracture seen on x-ray and minimal findings on exam. She does have tenderness,though. I did consider that this may be ligamentous in nature, though. Should thisnot heal, it would be evaluated later. [facility] and given clearance for work. Patient agreedwith treatment plan and course. No further questions or concerns.CLINICAL IMPRESSION: Acute left hand contusion.Roger Dunlap PA-C dictating for Blane meier Pablito Gomez, TERRI/[id number]: 05/10/2018 15:07DT: 05/10/2018 15:45SSI File#: [id number] #: [id number] [facility] PATIENT NAME: PER FARMER Mica Ramires MEDICAL REC #: [id number], [place] [address] [facility] RE[facility] STAT[facility] PHYSICIANDisclaimer - This document may contain phonetic, minor grammatical errors, or errorsdue to voice quality.Verified/Reviewed by06/07/18 Jeff VILLAGOMEZ *[facility] PATIENT NAME: PER FARMER Mica Ramires MEDICAL REC #: [id number], [place] [address] [facility] PHYSICIAN Normal [facility] No Panel Information SARS-CoV-2 & FLU Antigen (Rapid) [facility] Work Phone: Vital Signs Date Time Vital Sign Value Performing Clinician Facility 09-05-2025 00:05-0400 Body temperature 97.8 [degF] Dr. Sophie Avalos MD Work Phone: 2(154)002-452538 [place] [address] 09-05-2025 00:05-0400 Diastolic blood pressure 61 mm[Hg] Dr. Sophie Avalos MD Work Phone: 2(221)325-767438 [place] [address] 09-05-2025 00:05-0400 Heart rate 73 /min Dr. Sophie Avalos MD Work Phone: 0(881)815-996538 [place] [address] 09-05-2025 00:05-0400 Respiratory rate 18 /min Dr. Sophie Avalos MD Work Phone: 0(055)721-287438 [place] [address] 09-05-2025 00:05-0400 SaO2% (BldA) [Mass fraction] 97 % Dr. Sophie Avalos MD Work Phone: 5(726)483-032338 [place] [address] 09-05-2025 00:05-0400 Systolic blood pressure 95 mm[Hg] Dr. Sophie Avalos MD Work Phone: 4(075)664-565938 [place] [address] 09-04-2025 21:26-0400 Body height 170.[address] Sophie Avalos MD Work Phone: 7(223)836-801038 [place] [address] 09-04-2025 21:26-0400 Body mass index (BMI) [Ratio] 31.7 kg/m2 Dr. Sophie Avalos MD Work Phone: 2(752)327-582338 [place] [address] 09-04-2025 21:26-0400 Body weight 91.[address] Sophie Avalos MD Work Phone: 6(800)405-128538 [place] [address] 08-14-2025 08:27-0400 Body mass index (BMI) [Ratio] 27.44 kg/m2 Felipa Torres TEACHER [employer] Work Phone: 5(333)937-025384 [place] [address] 08-14-2025 08:27-0400 Body weight 77.11 kg Felipa Torres TEACHER [employer] Work Phone: 4(361)261-660084 [place] [address] 08-14-2025 08:27-0400 Diastolic blood pressure 64 mm[Hg] Felipa Torres TEACHER [employer] Work Phone: 1(105)875-968084 [place] [address] 08-14-2025 08:27-0400 Heart rate 68 /min Felipa Suppan TEACHER [employer] Work Phone: [facility] 08-14-2025 08:27-0400 Respiratory rate 16 /min Felipa Suppan TEACHER [employer] Work Phone: [facility] 08-14-2025 08:27-0400 SaO2% (BldA) [Mass fraction] 95 % Felipa Suppan TEACHER [employer] Work Phone: [facility] 08-14-2025 08:27-0400 Systolic blood pressure 122 mm[Hg] Felipa Suppan TEACHER [employer] Work Phone: [facility] 08-10-2025 14:09-0400 Body temperature 97.7 [degF] Dr. Sophie Avalos MD Work Phone: 4(020)324-407542 [place] [address] 08-10-2025 14:09-0400 Diastolic blood pressure 77 mm[Hg] Dr. Sophie Avalos MD Work Phone: 8(024)513-139042 [place] [address] 08-10-2025 14:09-0400 Heart rate 69 /min Dr. Sophie Avalos MD Work Phone: 2(081)279-895038 [place] [address] 08-10-2025 14:09-0400 Respiratory rate 16 /min Dr. Sophie Avalos MD Work Phone: [facility] 08-10-2025 14:09-0400 SaO2% (BldA) [Mass fraction] 98 % Dr. Sophie Avalos MD Work Phone: [facility] 08-10-2025 14:09-0400 Systolic blood pressure 112 mm[Hg] Dr. Sophie Avalos MD Work Phone: 6(714)035-970442 [place] [address] 08-10-2025 12:33-0400 Body height 170.[address] Sophie Avalos MD Work Phone: 9(553)346-413342 [place] [address] 08-10-2025 12:33-0400 Body mass index (BMI) [Ratio] 26.9 kg/m2 Dr. Sophie Avalos MD Work Phone: 2(342)903-998642 [place] [address] 08-10-2025 12:33-0400 Body weight 78.[address] Sophie Avalos MD Work Phone: [facility] 08-08-2025 09:13-0400 Body mass index (BMI) [Ratio] 29.04 kg/m2 Silvia Christensen TEACHER [employer] Work Phone: [facility] 08-08-2025 09:13-0400 Body temperature 97 [degF] Silvia Christensen TEACHER [employer] Work Phone: [facility] 08-08-2025 09:13-0400 Body weight 81.6 kg Silvia Christensen TEACHER [employer] Work Phone: [facility] 08-08-2025 09:13-0400 Diastolic blood pressure 64 mm[Hg] Silvia Christensen TEACHER [employer] Work Phone: [facility] 08-08-2025 09:13-0400 Heart rate 96 /min Silvia Christensen TEACHER [employer] Work Phone: [facility] 08-08-2025 09:13-0400 Respiratory rate 19 /min Silvia Mame TEACHER [employer] Work Phone: [facility] 08-08-2025 09:13-0400 SaO2% (BldA) [Mass fraction] 95 % Silvia Christensen TEACHER [employer] Work Phone: [facility] 08-08-2025 09:13-0400 Systolic blood pressure 98 mm[Hg] Silvia Christensen TEACHER [employer] Work Phone: [facility] 07-31-2025 13:21-0400 Body mass index (BMI) [Ratio] 28.25 kg/m2 Di Arreola TEACHER [employer] Work Phone: [facility] 07-31-2025 13:21-0400 Body weight 79.38 kg Di Arreola TEACHER [employer] Work Phone: [facility] 07-31-2025 13:21-0400 Diastolic blood pressure 72 mm[Hg] Di Arreola TEACHER [employer] Work Phone: [facility] 07-31-2025 13:21-0400 Heart rate 77 /min Di Haagen TEACHER [employer] Work Phone: [facility] 07-31-2025 13:21-0400 SaO2% (BldA) [Mass fraction] 97 % Di Haagen TEACHER [employer] Work Phone: [facility] 07-31-2025 13:21-0400 Systolic blood pressure 112 mm[Hg] Di Haagen TEACHER [employer] Work Phone: [facility] 06-25-2025 13:01-0400 Body mass index (BMI) [Ratio] 28.5 kg/m2 Di Haagen TEACHER [employer] Work Phone: [facility] 06-25-2025 13:01-0400 Body weight 80.11 kg Di Haagen TEACHER [employer] Work Phone: [facility] 06-25-2025 13:01-0400 Diastolic blood pressure 62 mm[Hg] Di Haagen TEACHER [employer] Work Phone: [facility] 06-25-2025 13:01-0400 Heart rate 73 /min Di Haagen TEACHER [employer] Work Phone: [facility] 06-25-2025 13:01-0400 Respiratory rate 12 /min Di Haagen TEACHER [employer] Work Phone: [facility] 06-25-2025 13:01-0400 SaO2% (BldA) [Mass fraction] 98 % Di Haagen TEACHER [employer] Work Phone: [facility] 06-25-2025 13:01-0400 Systolic blood pressure 118 mm[Hg] Di Haagen TEACHER [employer] Work Phone: [facility] 05-01-2025 10:33-0400 Diastolic blood pressure 72 mm[Hg] Id Haagen TEACHER [employer] Work Phone: [facility] 05-01-2025 10:33-0400 Heart rate 69 /min Di Haagen TEACHER [employer] Work Phone: [facility] 05-01-2025 10:33-0400 Respiratory rate 16 /min Di Arreola TEACHER [employer] Work Phone: [facility] 05-01-2025 10:33-0400 SaO2% (BldA) [Mass fraction] 99 % Di Arreola TEACHER [employer] Work Phone: [facility] 05-01-2025 10:33-0400 Systolic blood pressure 110 mm[Hg] Di Arreola TEACHER [employer] Work Phone: [facility] 02-06-2023 23:08-0500 Diastolic blood pressure 71 mm[Hg] [facility] 02-06-2023 23:08-0500 Heart rate 83 /min [facility] 02-06-2023 23:08-0500 Respiratory rate 16 /min [facility] 02-06-2023 23:08-0500 SaO2% (BldA) [Mass fraction] 98 % [facility] 02-06-2023 23:08-0500 Systolic blood pressure 112 mm[Hg] [facility] 02-06-2023 21:07-0500 Body height 167.64 cm [facility] 02-06-2023 21:07-0500 Body mass index (BMI) [Ratio] 35 kg/m2 [facility] 02-06-2023 21:07-0500 Body temperature 97.1 [degF] [facility] 02-06-2023 21:07-0500 Body weight 98.4 kg [facility] 01-19-2023 11:19-0500 Body height 167.6 cm Cecilia Craig PA-C Work Phone: [facility] 01-19-2023 11:19-0500 Body weight 94.8 kg Cecilia Craig PA-C Work Phone: [facility] 01-19-2023 11:19-0500 Diastolic blood pressure 81 mm[Hg] Cecilia Craig PA-C Work Phone: [facility] 01-19-2023 11:19-0500 Heart rate 81 /min Cecilia Davisnn PA-C Work Phone: [facility] 01-19-2023 11:19-0500 SaO2% (BldA) [Mass fraction] 95 % Cecilia Davisnn PA-C Work Phone: [facility] 01-19-2023 11:19-0500 Systolic blood pressure 121 mm[Hg] Cecilia Davisnn PA-C Work Phone: [facility] 01-09-2023 14:00-0500 SaO2% (BldA) [Mass fraction] 99 % [facility] 01-09-2023 00:41-0500 Body temperature 98.2 [degF] [facility] 01-09-2023 00:41-0500 Diastolic blood pressure 74 mm[Hg] [facility] 01-09-2023 00:41-0500 Heart rate 74 /min [facility] 01-09-2023 00:41-0500 Respiratory rate 15 /min [facility] 01-09-2023 00:41-0500 Systolic blood pressure 132 mm[Hg] [facility] 01-08-2023 23:43-0500 Inhaled oxygen flow rate 2 L/min [facility] 01-08-2023 22:34-0500 Body height 152.4 cm [facility] 01-08-2023 22:34-0500 Body mass index (BMI) [Ratio] 41.5 kg/m2 [facility] 01-08-2023 22:34-0500 Body weight 96.4 kg [facility] 12-28-2022 10:31-0500 Body weight 94.8 kg Nurse Wstr Work Phone: [facility] 12-28-2022 10:31-0500 Diastolic blood pressure 78 mm[Hg] Nurse Wstr Work Phone: [facility] 12-28-2022 10:31-0500 Systolic blood pressure 112 mm[Hg] Nurse Wstr Work Phone: [facility] 12-24-2022 11:41-0500 Body height 167.6 cm [facility] 2 [facility] 12-24-2022 11:41-0500 Body temperature 98.4 [degF] [facility] 2 [facility] 12-24-2022 11:41-0500 Body weight 93.44 kg [facility] 2 [facility] 12-24-2022 11:41-0500 Diastolic blood pressure 79 mm[Hg] [facility] 2 [facility] 12-24-2022 11:41-0500 Heart rate 76 /min [facility] 2 [facility] 12-24-2022 11:41-0500 Respiratory rate 16 /min [facility] 2 [facility] 12-24-2022 11:41-0500 SaO2% (BldA) [Mass fraction] 97 % [facility] 2 [facility] 12-24-2022 11:41-0500 Systolic blood pressure 117 mm[Hg] [facility] 2 [facility] 11-10-2022 10:13-0500 Body height 170.2 cm Juaquin Walsh MD Work Phone: [facility] 11-10-2022 10:13-0500 Body weight 93.89 kg Juaquin Walsh MD Work Phone: [facility] 11-10-2022 10:13-0500 Diastolic blood pressure 79 mm[Hg] Juaquin Walsh MD Work Phone: [facility] 11-10-2022 10:13-0500 Heart rate 88 /min Juaquin Walsh MD Work Phone: [facility] 11-10-2022 10:13-0500 SaO2% (BldA) [Mass fraction] 99 % Juaquin Walsh MD Work Phone: [facility] 11-10-2022 10:13-0500 Systolic blood pressure 114 mm[Hg] Juaquin Walsh MD Work Phone: [facility] 10-28-2022 13:25-0500 Body temperature 97 [degF] Sweetie Dorsey APRN.[employer] Work Phone: [facility] 10-28-2022 13:25-0500 Body weight 93.89 kg Sweetie Dorsey APRN.[employer] Work Phone: [facility] 10-28-2022 13:25-0500 Diastolic blood pressure 68 mm[Hg] Sweetie Praisler-Wood TEACHER [employer] Work Phone: [facility] 10-28-2022 13:25-0500 Heart rate 94 /min Sweetie Praisler-Wood TEACHER [employer] Work Phone: [facility] 10-28-2022 13:25-0500 Respiratory rate 16 /min Sweetie Praisler-Wood TEACHER [employer] Work Phone: [facility] 10-28-2022 13:25-0500 SaO2% (BldA) [Mass fraction] 97 % Sweetie Praisler-Wood TEACHER [employer] Work Phone: [facility] 10-28-2022 13:25-0500 Systolic blood pressure 110 mm[Hg] Sweetie Praisler-Wood TEACHER [employer] Work Phone: [facility] 10-17-2022 20:57-0500 Heart rate 98 /min [facility] 10-17-2022 20:57-0500 Respiratory rate 18 /min [facility] 10-17-2022 20:57-0500 SaO2% (BldA) [Mass fraction] 98 % [facility] 10-17-2022 18:58-0500 Body mass index (BMI) [Ratio] 31.3 kg/m2 [facility] 10-17-2022 18:58-0500 Body temperature 97.6 [degF] [facility] 10-17-2022 18:58-0500 Body weight 90.71 kg [facility] 10-17-2022 18:58-0500 Diastolic blood pressure 85 mm[Hg] [facility] 10-17-2022 18:58-0500 Systolic blood pressure 129 mm[Hg] [facility] 10-13-2022 13:28-0500 Body height 161.3 cm Sophie Avalos MD Work Phone: [facility] 10-13-2022 13:28-0500 Body weight 92.17 kg Sophie Avalos MD Work Phone: [facility] 10-13-2022 13:28-0500 Diastolic blood pressure 66 mm[Hg] Sophie Avalos MD Work Phone: [facility] 10-13-2022 13:28-0500 Heart rate 105 /min Sophie Avalos MD Work Phone: [facility] 10-13-2022 13:28-0500 SaO2% (BldA) [Mass fraction] 97 % Sophie Avalos MD Work Phone: [facility] 10-13-2022 13:28-0500 Systolic blood pressure 100 mm[Hg] Sophie Avalos MD Work Phone: [facility] 09-25-2022 11:51-0400 Body weight 90.72 kg Gia Lindsay TEACHER [employer] Work Phone: [facility] 09-25-2022 11:51-0400 Diastolic blood pressure 70 mm[Hg] Gia Lindsay TEACHER [employer] Work Phone: [facility] 09-25-2022 11:51-0400 Heart rate 84 /min Gia Lindsay TEACHER [employer] Work Phone: [facility] 09-25-2022 11:51-0400 Respiratory rate 16 /min Gia Lindsay TEACHER [employer] Work Phone: [facility] 09-25-2022 11:51-0400 SaO2% (BldA) [Mass fraction] 95 % Gia Lindsay TEACHER [employer] Work Phone: [facility] 09-25-2022 11:51-0400 Systolic blood pressure 112 mm[Hg] Gia Lindsay TEACHER [employer] Work Phone: [facility] 09-24-2022 12:02-0400 Body height 170.18 cm [facility] Work Phone: 09-24-2022 12:02-0400 Body mass index (BMI) [Ratio] 29.7 kg/m2 [facility] 09-24-2022 12:02-0400 Body temperature 96.6 [degF] [facility] 09-24-2022 12:02-0400 Body weight 86.18 kg [facility] 09-24-2022 12:02-0400 Diastolic blood pressure 72 mm[Hg] [facility] 09-24-2022 12:02-0400 Heart rate 92 /min [facility] 09-24-2022 12:02-0400 Respiratory rate 16 /min [facility] 09-24-2022 12:02-0400 SaO2% (BldA) [Mass fraction] 98 % [facility] 09-24-2022 12:02-0400 Systolic blood pressure 107 mm[Hg] [facility] 07-31-2022 12:15-0400 Body temperature 97.9 [degF] Ruth Yue TEACHER [employer] Work Phone: [facility] 07-31-2022 12:15-0400 Body weight 87.27 kg Ruth Yue TEACHER [employer] Work Phone: [facility] 07-31-2022 12:15-0400 Diastolic blood pressure 76 mm[Hg] Ruth Yue TEACHER [employer] Work Phone: [facility] 07-31-2022 12:15-0400 Heart rate 108 /min Ruth Yue TEACHER C[employer] Work Phone: [facility] 07-31-2022 12:15-0400 Respiratory rate 18 /min Ruth Yue TEACHER C[employer] Work Phone: [facility] 07-31-2022 12:15-0400 SaO2% (BldA) [Mass fraction] 97 % Ruth Yue TEACHER [employer] Work Phone: [facility] 07-31-2022 12:15-0400 Systolic blood pressure 122 mm[Hg] Ruth Yue TEACHER [employer] Work Phone: [facility] 07-31-2022 01:28-0400 Heart rate 74 /min [facility] Work Phone: 07-31-2022 01:28-0400 Respiratory rate 16 /min [facility] Work Phone: 07-31-2022 01:28-0400 SaO2% (BldA) [Mass fraction] 98 % [facility] Work Phone: 07-30-2022 23:57-0400 Body mass index (BMI) [Ratio] 31.8 kg/m2 [facility] Work Phone: 07-30-2022 23:57-0400 Body temperature 97.2 [degF] [facility] Work Phone: 07-30-2022 23:57-0400 Body weight 87 kg [facility] Work Phone: 07-30-2022 23:57-0400 Diastolic blood pressure 85 mm[Hg] [facility] Work Phone: 07-30-2022 23:57-0400 Systolic blood pressure 115 mm[Hg] [facility] Work Phone: 07-22-2022 12:50-0400 Body height 161.3 cm Jakbu Martin APRN.[employer]ENT Work Phone: [facility] 07-22-2022 12:50-0400 Body weight 87 kg Jakub Martin APRN.[employer] SU[employer]ENT Work Phone: [facility] 07-22-2022 12:50-0400 Diastolic blood pressure 70 mm[Hg] Jakub Martin APRN.[employer] SU[employer]ENT Work Phone: [facility] 07-22-2022 12:50-0400 Systolic blood pressure 110 mm[Hg] Jakub Martin APRN.[employer] SUPER[employer]ENT Work Phone: [facility] 07-16-2022 08:06-0400 Body temperature 97.3 [degF] Brandi Oconnell TEACHER [employer] Work Phone: [facility] 07-16-2022 08:06-0400 Body weight 84.82 kg Brandi Oconnell TEACHER [employer] Work Phone: [facility] 07-16-2022 08:06-0400 Diastolic blood pressure 72 mm[Hg] Brandi Oconnell TEACHER [employer] Work Phone: [facility] 07-16-2022 08:06-0400 Heart rate 70 /min Brandi Davegurmeeten TEACHER C[employer] Work Phone: [facility] 07-16-2022 08:06-0400 Respiratory rate 16 /min Brandi Davegurmeeten TEACHER [employer] Work Phone: [facility] 07-16-2022 08:06-0400 SaO2% (BldA) [Mass fraction] 98 % Brandi Sanchezmarvagurmeeten TEACHER [employer] Work Phone: [facility] 07-16-2022 08:06-0400 Systolic blood pressure 106 mm[Hg] Brandi Sanchezmarvagurmeetoscar TEACHER CCLC.[facility] Work Phone: [facility] 06-19-2022 13:37-0400 Body height 165.1 cm [facility] Work Phone: 06-19-2022 13:37-0400 Body mass index (BMI) [Ratio] 32.3 kg/m2 [facility] Work Phone: 06-19-2022 13:37-0400 Body temperature 97.8 [degF] [facility] Work Phone: 06-19-2022 13:37-0400 Body weight 87.99 kg [facility] Work Phone: 06-19-2022 13:37-0400 Diastolic blood pressure 82 mm[Hg] [facility] Work Phone: 06-19-2022 13:37-0400 Heart rate 89 /min [facility] Work Phone: 06-19-2022 13:37-0400 Respiratory rate 16 /min [facility] Work Phone: 06-19-2022 13:37-0400 SaO2% (BldA) [Mass fraction] 98 % [facility] Work Phone: 06-19-2022 13:37-0400 Systolic blood pressure 128 mm[Hg] [facility] Work Phone: 06-08-2022 14:57-0400 Body temperature 98.4 [degF] Sophie Avalos MD Work Phone: [facility] 06-08-2022 14:57-0400 Body weight 87.54 kg Sophie Avalos MD Work Phone: [facility] 06-08-2022 14:57-0400 Diastolic blood pressure 68 mm[Hg] Sophie Avalos MD Work Phone: [facility] 06-08-2022 14:57-0400 Heart rate 90 /min Sophie Avalos MD Work Phone: [facility] 06-08-2022 14:57-0400 Respiratory rate 16 /min Sophie Avalos MD Work Phone: [facility] 06-08-2022 14:57-0400 SaO2% (BldA) [Mass fraction] 98 % Sophie Avalos MD Work Phone: [facility] 06-08-2022 14:57-0400 Systolic blood pressure 100 mm[Hg] Sophie Avalos MD Work Phone: [facility] 05-25-2022 13:01-0400 Diastolic blood pressure 82 mm[Hg] Di Haagen TEACHER C[employer] Work Phone: [facility] 05-25-2022 13:01-0400 Heart rate 96 /min Di Haagen TEACHER [employer] Work Phone: [facility] 05-25-2022 13:01-0400 Respiratory rate 18 /min Di Haagen TEACHER [employer] Work Phone: [facility] 05-25-2022 13:01-0400 SaO2% (BldA) [Mass fraction] 97 % Di Haagen TEACHER [employer] Work Phone: [facility] 05-25-2022 13:01-0400 Systolic blood pressure 116 mm[Hg] Di Haagen TEACHER C[employer] Work Phone: [facility] 05-14-2022 09:00-0400 Body temperature 98.29 [degF] Mary Ann Athy PA-C Work Phone: [facility] 05-14-2022 09:00-0400 Body weight 87.45 kg Mary Ann Athy PA-C Work Phone: [facility] 05-14-2022 09:00-0400 Diastolic blood pressure 80 mm[Hg] Mary Ann Athy PA-C Work Phone: [facility] 05-14-2022 09:00-0400 Heart rate 85 /min Mary Ann Athy PA-C Work Phone: [facility] 05-14-2022 09:00-0400 Respiratory rate 16 /min Mary Ann Athy PA-C Work Phone: [facility] 05-14-2022 09:00-0400 SaO2% (BldA) [Mass fraction] 98 % Mary Ann Athy PA-C Work Phone: [facility] 05-14-2022 09:00-0400 Systolic blood pressure 122 mm[Hg] Mary Ann Athy PA-C Work Phone: [facility] 05-13-2022 10:45-0400 Diastolic blood pressure 84 mm[Hg] Di Haagen TEACHER CCLC.GROVE SUPERINTENDENT Work Phone: [facility] 05-13-2022 10:45-0400 Heart rate 85 /min Di Haagen TEACHER CCLC.GROVE SUPERINTENDENT Work Phone: [facility] 05-13-2022 10:45-0400 Respiratory rate 18 /min Di Haagen TEACHER CCLC.GROVE SUPERINTENDENT Work Phone: [facility] 05-13-2022 10:45-0400 SaO2% (BldA) [Mass fraction] 96 % Di Haagen TEACHER CCLC.GROVE SUPERINTENDENT Work Phone: [facility] 05-13-2022 10:45-0400 Systolic blood pressure 106 mm[Hg] Di Haagen TEACHER CCLC.GROVE SUPERINTENDENT Work Phone: [facility] 04-30-2022 14:11-0400 Body weight 87.54 kg Sophie Avalos MD Work Phone: [facility] 04-30-2022 14:11-0400 Diastolic blood pressure 62 mm[Hg] Sophie Avalos MD Work Phone: [facility] 04-30-2022 14:11-0400 Heart rate 88 /min Sophie Avalos MD Work Phone: [facility] 04-30-2022 14:11-0400 Systolic blood pressure 102 mm[Hg] Sophie Avalos MD Work Phone: [facility] 04-24-2022 10:02-0400 Body weight 85 kg Nurse Wstr Work Phone: [facility] 04-24-2022 10:02-0400 Diastolic blood pressure 70 mm[Hg] Nurse Wstr Work Phone: [facility] 04-24-2022 10:02-0400 Systolic blood pressure 108 mm[Hg] Nurse Wstr Work Phone: [facility] 04-22-2022 12:57-0400 Body weight 84.19 kg Dianita Arreola TEACHER CCLC.GROVE SUPERINTENDENT Work Phone: [facility] 04-22-2022 12:57-0400 Diastolic blood pressure 66 mm[Hg] Di Arreola TEACHER CCLC.GROVE SUPERINTENDENT Work Phone: [facility] 04-22-2022 12:57-0400 Heart rate 92 /min Di Arreola TEACHER CCLC.GROVE SUPERINTENDENT Work Phone: [facility] 04-22-2022 12:57-0400 Respiratory rate 14 /min Di Johnsonagen TEACHER CCLC.GROVE SUPERINTENDENT Work Phone: [facility] 04-22-2022 12:57-0400 SaO2% (BldA) [Mass fraction] 98 % Di Arreola TEACHER CCLC.GROVE SUPERINTENDENT Work Phone: [facility] 04-22-2022 12:57-0400 Systolic blood pressure 104 mm[Hg] Di Arreola TEACHER CCLC.GROVE SUPERINTENDENT Work Phone: [facility] 04-21-2022 13:19-0400 Body height 165.1 cm [facility] Work Phone: 04-21-2022 13:19-0400 Body mass index (BMI) [Ratio] 29.9 kg/m2 [facility] Work Phone: 04-21-2022 13:19-0400 Body temperature 98.1 [degF] [facility] Work Phone: 04-21-2022 13:19-0400 Body weight 81.64 kg [facility] Work Phone: 04-21-2022 13:19-0400 Diastolic blood pressure 81 mm[Hg] [facility] Work Phone: 04-21-2022 13:19-0400 Heart rate 81 /min [facility] Work Phone: 04-21-2022 13:19-0400 Respiratory rate 14 /min [facility] Work Phone: 04-21-2022 13:19-0400 SaO2% (BldA) [Mass fraction] 95 % [facility] Work Phone: 04-21-2022 13:19-0400 Systolic blood pressure 113 mm[Hg] [facility] Work Phone: 04-09-2022 13:57-0400 Body weight 83.01 kg Sophie Avalos MD Work Phone: [facility] 04-09-2022 13:57-0400 Diastolic blood pressure 62 mm[Hg] Sophie Avalos MD Work Phone: [facility] 04-09-2022 13:57-0400 Heart rate 76 /min Sophie Avalos MD Work Phone: [facility] 04-09-2022 13:57-0400 Systolic blood pressure 114 mm[Hg] Sophie Avalos MD Work Phone: [facility] 01-26-2022 12:05-0500 Body mass index (BMI) [Ratio] 31.3 kg/m2 [facility] Work Phone: 01-26-2022 12:05-0500 Body temperature 96.2 [degF] [facility] Work Phone: 01-26-2022 12:05-0500 Body weight 90.71 kg [facility] Work Phone: 01-26-2022 12:05-0500 Diastolic blood pressure 78 mm[Hg] [facility] Work Phone: 01-26-2022 12:05-0500 Heart rate 85 /min [facility] Work Phone: 01-26-2022 12:05-0500 Respiratory rate 16 /min [facility] Work Phone: 01-26-2022 12:05-0500 SaO2% (BldA) [Mass fraction] 99 % [facility] Work Phone: 01-26-2022 12:05-0500 Systolic blood pressure 132 mm[Hg] [facility] Work Phone: 10-07-2021 10:43-0500 Diastolic blood pressure 95 mm[Hg] BOAZ ZAPATA MD [facility] 10-07-2021 10:43-0500 Heart rate 87 /min BOAZ ZAPATA MD [facility] 10-07-2021 10:43-0500 Respiratory rate 16 /min BOAZ ZAPATA MD [facility] 10-07-2021 10:43-0500 Systolic blood pressure 117 mm[Hg] BOAZ ZAPATA MD [facility] 10-07-2021 10:05-0500 Diastolic blood pressure 76 mm[Hg] BOAZ ZAPATA MD [facility] 10-07-2021 10:05-0500 Heart rate 80 /min BOAZ ZAPATA MD [facility] 10-07-2021 10:05-0500 Respiratory rate 16 /min BOAZ ZAPATA MD [facility] 10-07-2021 10:05-0500 Systolic blood pressure 119 mm[Hg] BOAZ ZAPATA MD [facility] 10-07-2021 09:47-0500 Body height 170 cm BOAZ ZAPATA MD [facility] 10-07-2021 09:47-0500 Body temperature 98.96 [degF] BOAZ ZAPATA MD [facility] 10-07-2021 09:47-0500 Body weight 95.5 kg BOAZ ZAPATA MD [facility] 10-07-2021 09:47-0500 Diastolic blood pressure 79 mm[Hg] BOAZ ZAPATA MD [facility] 10-07-2021 09:47-0500 Heart rate 82 /min BOAZ ZAPATA MD [facility] 10-07-2021 09:47-0500 Respiratory rate 18 /min BOAZ ZAPATA MD [facility] 10-07-2021 09:47-0500 Systolic blood pressure 107 mm[Hg] BOAZ ZAPATA MD [facility] 09-30-2021 14:50-0400 Body height 170.18 cm Sophie Avalos Work Phone: IE-DKHOK-Qdcotgfm g Work Phone: 09-30-2021 14:50-0400 Body mass index (BMI) [Ratio] 32.11 kg/m2 Sophie Avalos Work Phone: YF-BXABI-Pfpzndph g Work Phone: 09-30-2021 14:50-0400 Body surface area Derived from formula 2.04 m2 Sophie Avalos Work Phone: MF-YREWF-Ievdahdk g Work Phone: 09-30-2021 14:50-0400 Body weight 92.99 kg Sophie Avalos Work Phone: TB-KAVTP-Yneyjjkz g Work Phone: 09-30-2021 14:50-0400 Diastolic blood pressure 60 mm[Hg] Sophie Avalos Work Phone: KZ-VTQBQ-Sinanhwe g Work Phone: 09-30-2021 14:50-0400 Systolic blood pressure 120 mm[Hg] Sophie Avalos Work Phone: XS-ZCQVY-Xvdsrqdt g Work Phone: 09-30-2021 14:50-0400 0 1 Sophie Avalos Work Phone: WN-RRZDH-Ynufzbnc g Work Phone: Comment on above: GRAV PARA [employer] 2021 13:44-0400 Body height 165.1 cm Sophie Avalos Work Phone: MK-QFWFD-Todduzpu g Work Phone: 2021 13:44-0400 Body mass index (BMI) [Ratio] 34.28 kg/m2 Sophie Avalos Work Phone: NV-CMVTS-Vlsjhhta g Work Phone: 2021 13:44-0400 Body surface area Derived from formula 2 m2 Sophie Avalos Work Phone: VF-ALCFO-Tntayesd g Work Phone: 2021 13:44-0400 Body weight 93.44 kg Sophie Avalos Work Phone: PB-CIAEM-Eglfnqnz g Work Phone: 2021 13:44-0400 Diastolic blood pressure 64 mm[Hg] Sophie Avalos Work Phone: ID-JXZEU-Jkxcasrd g Work Phone: 2021 13:44-0400 Systolic blood pressure 115 mm[Hg] Sophie Avalos Work Phone: GA-OAGAS-Ccwkrjcl g Work Phone: 2021 13:44-0400 0 1 Sophie Avalos Work Phone: SD-UAUWR-Atrgvtgw g Work Phone: Comment on above: GRAV [employer] 05-26-2021 13:26-0400 Body height 165.1 cm Sophie Avalos Work Phone: OO-ONMMX-Gmdkrnau g Work Phone: 05-26-2021 13:26-0400 Body mass index (BMI) [Ratio] 32.62 kg/m2 Sophie Avalos Work Phone: OV-HIEET-Gbpwirkf g Work Phone: 05-26-2021 13:26-0400 Body surface area Derived from formula 1.96 m2 Sophie Avalos Work Phone: SA-EENVV-Iuhqukao g Work Phone: 05-26-2021 13:26-0400 Body weight 88.91 kg Sophie Avalos Work Phone: GP-SEXXF-Qalqolvt g Work Phone: 05-26-2021 13:26-0400 Diastolic blood pressure 82 mm[Hg] Sophie Avalos Work Phone: DD-XFDAY-Nosokveg g Work Phone: 05-26-2021 13:26-0400 Systolic blood pressure 130 mm[Hg] Sophie Avalos Work Phone: JY-OLDRD-Pwfneqss g Work Phone: 05-26-2021 13:26-0400 0 1 Sophie Avalos Work Phone: PC-LJOUO-Apvkdvtp g Work Phone: Comment on above: GRAV PARA [employer] 05-06-2021 15:38-0400 Body height 165.1 cm Sophie Avalos Work Phone: NZ-LKMQP-Eyyexdgs g Work Phone: 05-06-2021 15:38-0400 Body mass index (BMI) [Ratio] 33.28 kg/m2 Sophie Avalos Work Phone: UJ-IDOIN-Qbttsymm g Work Phone: 05-06-2021 15:38-0400 Body surface area Derived from formula 1.98 m2 Sophie Avalos Work Phone: XP-WXNXZ-Czghzuaa g Work Phone: 05-06-2021 15:38-0400 Body weight 90.72 kg Sophie Avalos Work Phone: DP-NPCZL-Bnxkviym g Work Phone: 05-06-2021 15:38-0400 Diastolic blood pressure 75 mm[Hg] Sophie Avalos Work Phone: ZL-MZSML-Bbgvgdhm g Work Phone: 05-06-2021 15:38-0400 Systolic blood pressure 126 mm[Hg] Sophie Avalos Work Phone: BW-RKIXA-Gvbyyaqh g Work Phone: 05-06-2021 15:38-0400 0 1 Sophie Avalos Work Phone: HX-QIKYJ-Aukonsik g Work Phone: Comment on above: GRAV PARA [employer] 04-21-2021 16:11-0400 Body height 165.1 cm Sophie Avalos Work Phone: JQ-LORTP-Mcuprmxu g Work Phone: 04-21-2021 16:11-0400 Body mass index (BMI) [Ratio] 32.78 kg/m2 Sophie Avalos Work Phone: KR-HUNZP-Qkpvgdcv g Work Phone: 04-21-2021 16:11-0400 Body surface area Derived from formula 1.97 m2 Sophie Avalos Work Phone: XI-XORNO-Pqkuptzw g Work Phone: 04-21-2021 16:11-0400 Body weight 89.36 kg Sophie Avalos Work Phone: WM-HRQUP-Ntkizrrb g Work Phone: 04-21-2021 16:11-0400 Diastolic blood pressure 82 mm[Hg] Sophie Avalos Work Phone: EX-OUTJC-Azzbsygl g Work Phone: 04-21-2021 16:11-0400 Systolic blood pressure 120 mm[Hg] Sophie Avalos Work Phone: OQ-EVQXV-Lbkywjvy g Work Phone: 04-21-2021 16:11-0400 0 1 Sophie Avalos Work Phone: BA-KXYVP-Hvillreu g Work Phone: Comment on above: GRAV PARA [employer] 06-05-2020 15:12-0400 BMI (Body Mass Index) 27.99 kg/m2 Carolynn Raffis IQ-EGOLQ-Plztdhtd 100 Work Phone: 06-05-2020 15:12-0400 Body weight 71.67 kg Carolynn Raffis QN-RTZGU-Zhzfbi nd 100 Work Phone: 06-05-2020 15:12-0400 BP Diastolic 78 mm[Hg] Carolynn Raffis JG-VRQHM-Zqqgus nd 100 Work Phone: 06-05-2020 15:12-0400 BP Systolic 114 mm[Hg] Carolynn Raffis OP-TSYZG-Oqjjhi nd 100 Work Phone: 06-05-2020 15:12-0400 BSA (Body Surface Area) 1.75 m2 Carolynn Raffis MH-BKZCR-Csypnjml 100 Work Phone: 06-05-2020 15:12-0400 Height 160.02 cm Carolynn Raffis KW-LWTVR-Eulykk nd 100 Work Phone: 06-05-2020 15:12-0400 2 1 Carolynn Raffis JZ-HZUSG-Uevfnd nd 100 Work Phone: Comment on above: 06-05-2020 15:12-0400 0 1 Carolynn Raffis NK-YVQQQ-Dqohqs nd 100 Work Phone: Comment on above: Para 03-18-2020 15:23-0400 BMI (Body Mass Index) 27.1 kg/m2 Fred Murphy TU-MTKVO-Mxjqfqb 44 Work Phone: 03-18-2020 15:23-0400 Body weight 69.4 kg Fred Murphy PZ-GKRPJ-Mubywzj 44 Work Phone: 03-18-2020 15:23-0400 BP Diastolic 70 mm[Hg] Fred Arevalopka TY-VEBIY-Yyycigo 44 Work Phone: 03-18-2020 15:23-0400 BP Systolic 110 mm[Hg] Fred Arevalopka TQ-TIHYX-Ejwstqq 44 Work Phone: 03-18-2020 15:23-0400 BSA (Body Surface Area) 1.73 m2 Fred Arevalopka IG-NLSAU-Bmwznei 44 Work Phone: 03-18-2020 15:23-0400 Height 160.02 cm Fred Arevalopka DW-JZDHK-Zpjolbc 44 Work Phone: 03-18-2020 15:23-0400 2 1 Fred Arevalopka MW-KYZRB-Wlyxzzw 44 Work Phone: Comment on above: 03-18-2020 15:23-0400 0 1 Fred Arevaloptanya QO-TUBVH-Knwamev 44 Work Phone: Comment on above: Para Encounters Encounter Date Encounter Type Care Provider Facility Start: 09-11-2025 End: 09-11-2025 ambulatory MARIA TERESA JOHN Facility:[facility] Start: 09-10-2025 End: 09-10-2025 Emergency department patient visit [facility] Facility:[facility] Start: 09-04-2025 End: 09-05-2025 Emergency department patient visit Dr. Sophie Avalos MD Work Phone: -Emergency Department Work Phone: Start: 08-21-2025 End: 08-21-2025 ambulatory SOPHIE AVALOS Facility:[facility] Start: 08-14-2025 End: 08-14-2025 Follow-up encounter Felipa Torres TEACHER CCLC.GROVE SUPERINTENDENT Work Phone: [facility] Start: 08-14-2025 End: 08-14-2025 Subsequent hospital visit by physician [facility] Work Phone: Radiology Comment on above: Foot pain, left [M79 .672] Start: 08-14-2025 End: 08-14-2025 Office outpatient visit 15 minutes Felipa Torres APRN.GROVE SUPERINTENDENT Work Phone: [facility] [place] Comment on above: Foot pain, left (Sharron amy Dx); Acute left ankle pain Start: 08-14-2025 End: 08-14-2025 ambulatory SOPHIE AVALOS Facility:[facility] Start: 08-10-2025 End: 08-10-2025 Emergency department patient visit Dr. Sophie Avalos MD Work Phone: -Emergency Department Work Phone: Start: 08-08-2025 End: 08-08-2025 Subsequent hospital visit by physician [facility] Work Phone: Radiology Comment on above: Acute cough [R05.1] Start: 08-08-2025 End: 08-08-2025 Patient encounter procedure Silvia Christensen APRN.GROVE SUPERINTENDENT Work Phone: [facility] [place] Comment on above: Acute cough (Primary Dx); URI, acute; Tobacco abuse; Acute otitis media, left; Acute sinusitis, recurrence not specified, unspecified location; Allergy to penicillin; Asthma, unspecified asthma severity, unspecified whether complicated, unspecified whether persistent ([facility]) Start: 08-08-2025 End: 08-08-2025 ambulatory SILVIA CHRISTENSEN Facility:[facility] Start: 07-31-2025 End: 07-31-2025 ambulatory DI ARREOLA Facility:[facility] Start: 07-31-2025 Encounter for gynecological examination (general) (routine) without abnormal findings DI [facility] Start: 07-31-2025 End: 07-31-2025 Office outpatient visit 25 minutes Di Arreola APRN.GROVE SUPERINTENDENT Work Phone: Family [facility] [place] Comment on above: Intractable chronic migraine without aura and without status migrainosus (Primary Dx); Encounter for gynecological examination without abnormal finding Start: 07-31-2025 End: 07-31-2025 Patient encounter status Di Arreola APRN.CNP Work Phone: [facility] Start: 06-26-2025 End: 06-29-2025 Telephone encounter Di Arreola APRN.CNP Work Phone: [facility] Comment on above: Forms (BMV) Refill Request Insurance Authorizat ion Start: 06-25-2025 End: 06-25-2025 Office outpatient visit 25 minutes Di Arreola APRN.BAKARI Work Phone: [facility] [place] Comment on above: Intractable migraine without status migrainosus, unspecified migraine type (Primary Dx); Seizure disorder (HCC); Major depressive disorder, recurrent, moderate (HCC); Attention deficit disorder, unspecified type Start: 06-25-2025 End: 06-25-2025 ambulatory [facility] Start: 05-04-2025 End: 05-07-2025 Follow-up encounter Di Arreola APRN.CNP Work Phone: [facility] Comment on above: Results Start: 05-01-2025 End: 05-02-2025 Telephone encounter Di Arreola APRN.CNP Work Phone: [facility] Comment on above: Appointment Start: 05-01-2025 End: 05-01-2025 Subsequent hospital visit by physician [facility] Work Phone: Radiology Comment on above: Finger injury, left, sequela [S69.92XS] Start: 05-01-2025 End: 05-01-2025 ambulatory [facility] Start: 05-01-2025 End: 05-01-2025 Office outpatient visit 25 minutes Di Arreola APRN.BAKARI Work Phone: [facility] [place] Comment on above: Right lower quadrant abdominal pain (Primary Dx); Depression, unspecified depression type; Folic acid deficiency; Anemia, unspecified type; SOB (shortness of breath); Mild intermittent asthma with acute exacerbation (HCC); Finger injury, left, sequela; Benign tumor of mouth; Prediabetes; RUQ pain; Hypoglycemia; Diarrhea, unspecified type Start: 05-01-2025 End: 05-01-2025 ambulatory DIAnita ARREOLA Facility:[facility] Start: 04-30-2025 End: 04-30-2025 ambulatory Nurse Intm/[facility] Work Phone: Nurse Phone Triage Comment on above: Abdominal Pain Start: 08-12-2023 Refill Gia arana APRN.CNP Work Phone: [facility] Comment on above: Refill Request Medication Problem Start: 03-01-2023 Refill Sophie Avalos MD Work Phone: [facility] Comment on above: Refill Request Start: 02-06-2023 End: 02-06-2023 [facility] Start: 01-19-2023 End: 01-19-2023 ambulatory SOPHIE AVALOS [facility] Start: 01-19-2023 End: 01-19-2023 Patient encounter procedure Cecilia Craig PA-C Work Phone: [facility] Comment on above: S/P cholecystectomy (Primary Dx) Start: 01-08-2023 End: 01-09-2023 [facility] Start: 12-31-2022 End: 12-31-2022 ambulatory JUAQUIN WALSH [facility] Start: 12-28-2022 End: 12-28-2022 Patient encounter procedure Nurse Ditch Repairer [facility] Work Phone: OB/Gynecology Comment on above: Encounter for manage ment and injection of depo-Provera (Primary Dx) Start: 12-24-2022 End: 12-25-2022 [facility] JUAQUIN WALSH [facility] Start: 12-24-2022 Encounter for other preprocedural examination [facility] Start: 12-24-2022 End: 12-24-2022 [address] [facility] Acc 2 Pre Surgical Testing Comment on above: Pre-op exam [Z01.818 (ICD-10-CM)] (Primary Dx); Gastroesophageal reflux disease, unspecified whether esophagitis present; Mild intermittent asthma without complication; Intractable migraine without status migrainosus, unspecified migraine type; Nicotine use disorder, F17.2; Iron deficiency anemia, unspecified iron deficiency anemia type; Psychogenic nonepileptic seizure; Biliary colic Start: 12-24-2022 End: 12-24-2022 Preprocedural examination done Pst 2 Pre Surgical Testing Start: 11-26-2022 Telephone encounter Sophie Avalos MD Work Phone: [facility] Comment on above: Medication Problem Start: 11-24-2022 Refill Sophie Avalos MD Work Phone: [facility] Comment on above: Refill Request Start: 11-10-2022 End: 11-10-2022 ambulatory JUAQUIN WALSH Facility:[facility] Start: 11-10-2022 End: 11-10-2022 Patient encounter procedure Juaquin Walsh MD Work Phone: [facility] Comment on above: Biliary colic (Prima ry Dx) Start: 10-28-2022 End: 10-28-2022 Patient encounter procedure Sweetie Dorsey APRN.GROVE SUPERINTENDENT Work Phone: [facility] Comment on above: Viral URI with cough (Primary Dx); Otalgia of right ear Start: 10-17-2022 End: 10-17-2022 Emergency department patient visit [facility] Start: 10-13-2022 End: 10-13-2022 Patient encounter procedure Sophie Avalos MD Work Phone: [facility] Comment on above: Breast pain (Primary Dx) Start: 09-27-2022 ambulatory Gia arana APRN.GROVE SUPERINTENDENT Work Phone: [facility] Comment on above: Doctors note Start: 09-25-2022 End: 09-25-2022 Patient encounter procedure Gia Colon APRN.GROVE SUPERINTENDENT Work Phone: [facility] Comment on above: Chronic right should er pain (Primary Dx); Chronic neck pain; Prediabetes Start: 09-24-2022 End: 09-24-2022 [facility] Start: 09-18-2022 End: 09-18-2022 ambulatory Emg 850) Neurology Comment on above: EMG Start: 09-18-2022 End: 09-18-2022 Patient encounter procedure Emg 1 Neur Kasey (Max Weight: 850) KASEY Start: 09-07-2022 Telephone encounter Danielagail elliott APRN.GROVE SUPERINTENDENT Work Phone: [facility] Comment on above: Opened In Error Start: 09-05-2022 End: 09-05-2022 Subsequent hospital visit by physician [facility] Work Phone: Radiology Comment on above: Bronchitis [J40] Start: 09-04-2022 ambulatory Daniela plasencia APRN.GROVE SUPERINTENDENT Work Phone: [facility] Comment on above: Prescription Start: 09-04-2022 Refill Daniela plasencia APRN.GROVE SUPERINTENDENT Work Phone: [facility] Comment on above: Med Change Request Start: 07-31-2022 End: 07-31-2022 Patient encounter procedure Ruth Turner APRN.CNP Work Phone: [facility] Comment on above: Upper respiratory sy mptom (Primary Dx); Diarrhea, unspecified type; Right lower quadrant abdominal pain Start: 07-30-2022 End: 07-31-2022 [facility] Start: 07-22-2022 End: 07-22-2022 Patient encounter procedure Jakub Martin APRN.GROVE SUPERINTENDENT Work Phone: OB/Gynecology Comment on above: Encounter for gyneco logical examination (general) (routine) without abnormal findings (Primary Dx); Screening for cervical cancer; Encounter for screening for human papillomavirus (HPV); Encounter for prescription for depo-Provera; Screen for STD (sexually transmitted disease) Start: 07-22-2022 End: 07-22-2022 Patient encounter status Jakub Martin APRN.GROVE SUPERINTENDENT Work Phone: OB/Gynecology Start: 07-21-2022 End: 07-21-2022 Subsequent hospital visit by physician [facility] Work Phone: Radiology Comment on above: Leg weakness, bilate ral [R29.898] Start: 07-17-2022 Telephone encounter Latonya Llamas APRN.GROVE SUPERINTENDENT [facility] Comment on above: Opened In Error Start: 07-16-2022 End: 07-16-2022 Subsequent hospital visit by physician [facility] Work Phone: Nuclear Medicine Comment on above: Nausea [R11.0] Start: 07-16-2022 End: 07-16-2022 Patient encounter procedure Brandi Oconnell APRN.GROVE SUPERINTENDENT Work Phone: Neurology Comment on above: Leg weakness, bilate ral (Primary Dx); Paresthesia; Right arm numbness; Lower extremity numbness Start: 07-06-2022 End: 07-06-2022 Subsequent hospital visit by physician [facility] Work Phone: Radiology Comment on above: RUQ abdominal pain [ R10.11] Start: 07-06-2022 Telephone encounter Yisel Ewing PA-C [facility] Comment on above: Patient Update Start: 06-29-2022 ambulatory Sophie Avalos MD Work Phone: Family [facility] Comment on above: Medication Start: 06-19-2022 End: 06-19-2022 [facility] Start: 06-09-2022 Telephone encounter Sophie Avalos MD Work Phone: Family [facility] Comment on above: Results Start: 06-08-2022 End: 06-08-2022 Subsequent hospital visit by physician [facility] Work Phone: Radiology Comment on above: Right elbow pain [M2 5.521] Start: 06-08-2022 End: 06-08-2022 Patient encounter procedure Sophie Avalos MD Work Phone: [facility] Comment on above: Eyelid disorder (Sharron amy Dx); Right elbow pain; Paresthesia Start: 06-04-2022 End: 06-04-2022 ambulatory Jarrett Hodgson PT [facility] Comment on above: Acute pain of right shoulder (Primary Dx) Start: 05-26-2022 End: 05-26-2022 ambulatory Jarrett Hodgson PT [facility] Comment on above: Acute pain of right shoulder (Primary Dx) Start: 05-25-2022 End: 05-25-2022 Office outpatient visit 15 minutes Di Arreola APRN.GROVE SUPERINTENDENT Work Phone: [facility] Comment on above: Acute pain of right shoulder (Primary Dx) Start: 05-14-2022 End: 05-14-2022 Patient encounter procedure Mary Ann Stover PA-C Work Phone: [facility] Comment on above: Tail bone pain (Prim shaka Dx) Start: 05-13-2022 End: 05-13-2022 Office outpatient visit 15 minutes Di Arreola APRN.GROVE SUPERINTENDENT Work Phone: [facility] Comment on above: Acute pain of right shoulder (Primary Dx) Start: 05-12-2022 End: 05-12-2022 ambulatory Jarrett Hodgson PT [facility] Comment on above: Acute pain of right shoulder (Primary Dx) Start: 04-30-2022 End: 04-30-2022 Subsequent hospital visit by physician [facility] Work Phone: Radiology Comment on above: Acute pain of right shoulder [M25.511] Start: 04-30-2022 End: 04-30-2022 Patient encounter procedure [facility] Comment on above: Acute pain of right shoulder (Primary Dx) Start: 04-30-2022 End: 04-30-2022 ambulatory Jarrett Hodgson PT [facility] Comment on above: Acute pain of right shoulder (Primary Dx) Start: 04-24-2022 Telephone encounter Sophie Avalos MD [facility] Comment on above: Work Excuse Start: 04-24-2022 End: 04-24-2022 Nursing evaluation of patient and report Nurse Ditch Repairer [facility] Work Phone: OB/Gynecology Comment on above: Encounter for manage ment and injection of depo-Provera (Primary Dx) Start: 04-23-2022 End: 04-23-2022 ambulatory Jarrett Hodgson PT [facility] Comment on above: Acute pain of right shoulder Start: 04-22-2022 End: 04-22-2022 Patient encounter procedure Di Arreola APRN.GROVE SUPERINTENDENT Work Phone: [facility] Comment on above: Acute pain of right shoulder (Primary Dx) Start: 04-21-2022 End: 04-21-2022 [facility] Start: 04-09-2022 End: 04-09-2022 Patient encounter procedure Sophie Avalos MD Work Phone: [facility] Comment on above: Diarrhea, unspecifie d type (Primary Dx); Abdominal cramping; Right upper quadrant pain Start: 01-26-2022 End: 01-26-2022 [facility] Start: 12-09-2021 End: 12-09-2021 Subsequent hospital visit by physician [facility] Work Phone: Radiology Comment on above: Suspected COVID-19 v irus infection [Z20.822] Start: 10-07-2021 End: 10-07-2021 Emergency department patient visit BOAZ ZAPATA MD [facility] Start: 09-30-2021 Office outpatient vi sit 15 minutes Sophie Avalos Work Phone: Jessica Work Phone: Start: 09-23-2021 End: 09-23-2021 Subsequent hospital visit by physician [facility] Work Phone: Radiology Comment on above: SOB (shortness of br eath) [R06.02] Start: 09-03-2021 Chart Update Sophie Avalos Work Phone: [id number]-[id number]-Zkvlubex 100 Work Phone: Start: 09-03-2021 [facility], Provider: Fred Murphy, Status: Pen, Time: 9:30 AM Sophie Avalos Work Phone: EJ-[id number]-Toldweoof Work Phone: Start: 09-02-2021 Chart Update Sophie Avalos Work Phone: [id number]-Eiobkulfs Work Phone: Start: 2021 Office outpatient vi sit 25 minutes Sophie Avalos Work Phone: HI-LTKXM-Nbezutygv Work Phone: Start: 05-30-2021 AUDIT Sophie Avalos Work Phone: UP-EOFNG-Xvmrwariu Work Phone: Start: 05-26-2021 Office outpatient vi sit 25 minutes Sophie Avalos Work Phone: NR-QHRBV-Qapmsifnf Work Phone: Start: 05-15-2021 Chart Update Sophie Avalos Work Phone: WH-LBMHO-Yrtigtt 44 Work Phone: Start: 05-09-2021 Chart Update Sophie Avalos Work Phone: RG-[id number]-Flkgmwcob Work Phone: Start: 02-03-2021 End: 02-03-2021 Subsequent hospital visit by physician [facility] Work Phone: Radiology Comment on above: Sprain of ligament o f left ankle, subsequent encounter [S93.402D] Start: 01-22-2021 End: 01-22-2021 Subsequent hospital visit by physician [facility] Work Phone: Radiology Comment on above: ov Start: 06-05-2020 Patient encounter procedure Manny Daniel CL-ZHXEZ-Arqpczif 100 Work Phone: Start: 06-03-2020 Patient encounter procedure Manny Daniel IC-RXUZB-Dteoupwg 100 Work Phone: Start: 03-18-2020 Patient encounter procedure Fred Murphy AI-WUUVN-Llbxdvi 44 Work Phone: Start: 01-18-2020 Patient encounter procedure Fred Arevaloptanya HO-JWGLD-Fnerzac 44 Work Phone: Start: 12-15-2019 Patient encounter procedure Fred Arevaloptanya MJ-OERAZ-Hgvtbca 44 Work Phone: Start: 10-24-2019 Patient encounter procedure Fred Arevaloptanya KO-AFOBH-Pnhvqmx 44 Work Phone: Start: 09-22-2019 Patient encounter procedure Fred Arevalopatnya PG-POLXT-Kbgspou 44 Work Phone: Start: 09-11-2019 Patient encounter procedure Fred Arevaloptanya VA-YDTCX-Jzburzq 44 Work Phone: Start: 08-29-2019 Patient encounter procedure Fred Arevaloptanya ZF-WVOCY-Gnbazvg 44 Work Phone: Start: 07-11-2019 Patient encounter procedure Fred Arevaloptanya GB-UEQUT-Ewzmuvf 44 Work Phone: Start: 07-04-2019 Patient encounter procedure Fred Arevaloptanya CC-EWGJM-Iqvegak 44 Work Phone: Start: 06-06-2019 Patient encounter procedure Fred Arevaloptanya KP-DKRWY-Xhrcnyc 44 Work Phone: Start: 05-11-2019 Patient encounter procedure Fred Arevaloptanya LX-ICQSL-Mheibfn 44 Work Phone: Start: 05-09-2019 Patient encounter procedure Fred Arevaloptanya IM-ZLENC-Tnwblod 44 Work Phone: Start: 05-02-2019 Patient encounter procedure Fred Murphy ZT-QHJXC-Oftozrf 44 Work Phone: Start: 09-19-2018 Patient encounter Marva Lemus Son ility:[facility] Start: 05-12-2018 Emergency department patient visit Roger Dunlap PAC Facility:[facility] Start: 05-10-2018 Patient encounter Roger Dunlap PAC Facility:[facility] Cancer cervix - screening done Sophie Avalos Work Phone: JH-YUBJT-Qfazdneqq Work Phone: Encounter for gynecological examination (general) (routine) without abnormal findings Sophie Avalos Work Phone: [id number]-[id number]-Jdwasfgdj Work Phone: Patient encounter procedure Sophie Avalos Work Phone: BO-MHMHT-Yrgmtedqx Work Phone: Procedures Date Procedure Procedure Detail Performing Clinician Start: 09-04-2025 Urnls dip stick/tabl et reagent auto microscopy Dr. Sophie Avalos MD Work Phone: Start: 09-04-2025 Ct abdomen & pelvis w/contrast material Dr. Sophie Avalos MD Work Phone: Start: 09-04-[address] Sophie Avalos MD Work Phone: Start: 08-14-2025 Radex ankle complete minimum 3 views Felipa Torres TEACHER CCLC.GROVE SUPERINTENDENT Work Phone: Start: 08-10-2025 X-ray of foot, three or more views Dr. Sophie Avalos MD Work Phone: Start: 08-10-2025 X-ray of ankle, thre e or more views Dr. Sophie Avalos MD Work Phone: Start: 08-08-2025 Radiologic exam ches t 2 views Silvia Christensen TEACHER CCLC.GROVE SUPERINTENDENT Work Phone: Start: 08-08-2025 Iadna streptococcus group a amplified probe tq Silvia Christensen TEACHER CCLC.GROVE SUPERINTENDENT Work Phone: Start: 01-08-2023 Plain chest X-ray Start: 12-28-2022 Urine test visual color cmprsn meths Jakub Martin TEACHER CCLC.GROVE SUPERINTENDENT Work Phone: Start: 10-17-2022 Plain chest X-ray Start: 09-18-2022 Nerve conduction krystyna dies 5-6 studies Brandi Oconnell TEACHER CCLC.GROVE SUPERINTENDENT Work Phone: Start: 09-05-2022 Radiologic exam ches t 2 views Daniela Hammond TEACHER CCLC.GROVE SUPERINTENDENT Work Phone: Start: 07-21-2022 Radex spine lumbosac ral 2/3 views Brandi Oconnell TEACHER CCLC.GROVE SUPERINTENDENT Work Phone: Start: 07-16-2022 Hepatobil syst imag inc gb w/pharma intervenj Latonya Llamas TEACHER CCLC.GROVE SUPERINTENDENT Work Phone: Start: 07-06-2022 Us abdominal real ti me w/image limited Latonya Llamas TEACHER CCLC.GROVE SUPERINTENDENT Work Phone: Start: 06-08-2022 Radex elbow 2 views Howie Avalos MD Work Phone: Start: 06-08-2022 Adult depression scr eening assessment Sophie Avalos MD Work Phone: Start: 04-30-2022 Radex shoulder compl ete minimum 2 views Sophie Avalos MD Work Phone: Start: 12-09-2021 Radiologic exam ches t 2 views Silvia Christensen TEACHER CCLC.GROVE SUPERINTENDENT Work Phone: Start: 09-23-2021 Radiologic exam ches t 2 views Brittney Schaefer PA-C Work Phone: Start: 08-27-2021 Antibody screen Comment on above: Performed By: #### T +S #### [facility] [address] [place] [address] Start: 02-03-2021 Radex ankle complete minimum 3 views Brenda Rodriguez DPM Work Phone: Start: 01-22-2021 Radex ankle complete minimum 3 views Gia Colon APRN.GROVE SUPERINTENDENT Work Phone: History of cholecystectomy S/P cholecyste ctomy Cecilia Craig PA-C Work Phone: Laparoscopy Fred Murphy Laparoscopy BOAZ SRIVASTAVA MD SARS-CoV-2 & FLU Ant igen (Rapid) SARS-CoV-2 & FLU Ant igen (Rapid) Plan of Treatment Date Care Activity Detail Author Start: 11-16-2031 Urine microalbumin profile [facility] Start: 08-14-2026 Annual PCP Team Chronic Disease Visit Annual PCP Team Chronic Disease Visit [facility] Start: 07-31-2026 Annual PCP Team Chronic Disease Visit Annual PCP Team Chronic Disease Visit [facility] Start: 06-25-2026 Annual PCP Team Chronic Disease Visit Annual PCP Team Chronic Disease Visit [facility] Start: 05-01-2026 Annual PCP Team Chronic Disease Visit Annual PCP Team Chronic Disease Visit [facility] Start: 09-11-2025 End: 09-11-2025 Patient encounter procedure 09/11/2025 3:15 PM EDT Office Visit Podiatry [address] [place] [address] Maria Teresa John [address] [place] [address] Foot pain, left [M79.672]; Acute left ankle pain [M25.572] Podiatry Comment on above: Foot pain, left [M79 .672]; Acute left ankle pain [M25.572] Start: 09-04-2025 [facility] Start: 08-21-2025 End: 08-21-2025 Patient encounter procedure 08/21/2025 2:20 PM EDT Office Visit [facility] [address] [place] [address] Felipa Torres APRN.GROVE SUPERINTENDENT [address] [place], [place] [id number] follow up 1 week Family [facility] Comment on above: follow up 1 week Start: 08-10-2025 [facility] Start: 08-06-2025 End: 08-06-2025 Patient encounter procedure 08/06/2025 11:00 AM EDT Office Visit [facility] Mele Dhillon [address] [place] [address] Di Arreola, BREANA.GROVE SUPERINTENDENT [address] [place] [address] one month f/up [facility] Me[facility] Dhillon Comment on above: one month f/up Start: 07-30-2025 Influenza vaccination [facility] Start: 07-22-2025 PAP TESTING PAP TESTING [facility] Start: 07-22-2025 Screening for malignant neoplasm of cervix Cervical Cancer Screening [facility] Start: 05-29-2025 End: 05-29-2025 Patient encounter procedure 05/29/2025 10:00 AM EDT Office Visit [facility] Mele Dhillon [address] [place] [address] Di Arreola, TEACHER CCLC.GROVE SUPERINTENDENT [address] [place] [address] 1 month follow up [facility] Mele Dhillon Comment on above: 1 month follow up Start: 05-22-2025 End: 05-22-2025 Patient encounter procedure 05/22/2025 10:50 AM EDT Office Visit OB/Gynecology [address] [place] [address] Mauricio Fink MD [address] [place] [address] Right lower quadrant abdominal pain [R10.31] OB/Gynecology Comment on above: Right lower quadrant abdominal pain [R10.31] Start: 05-01-2025 End: 07-31-2025 Comprehensive metabolic 2000 panel - Serum or Plasma [facility] Comment on above: Expected: 05/01/2025 , Expires: 07/31/2025 Start: 05-01-2025 End: 07-31-2025 Insulin [Units/volume] in Serum or Plasma [facility] Comment on above: Expected: 05/01/2025 , Expires: 07/31/2025 Start: 05-01-2025 End: 07-31-2025 Lipase [Enzymatic activity/volume] in Serum or Plasma [facility] Comment on above: Expected: 05/01/2025 , Expires: 07/31/2025 Start: 05-01-2025 End: 07-31-2025 Thyrotropin [Units/volume] in Serum or Plasma [facility] Comment on above: Expected: 05/01/2025 , Expires: 07/31/2025 Start: 05-01-2025 End: 05-01-2025 Patient encounter procedure 05/01/2025 10:40 AM EDT Office Visit [facility] [address] [place], [place] [id number] Di Arreola APRN.GROVE SUPERINTENDENT [address] [place] [address] stomach pain (HAS NOT BEEN SEEN SINCE 10/13/22) [facility] Comment on above: stomach pain (HAS NO T BEEN SEEN SINCE 10/13/22) Start: 07-30-2024 Covid-19 Vaccine ( season) Covid-19 Vaccine ( season) [facility] Start: 07-30-2024 Influenza vaccination Influenza Vacc ine (#1) [facility] Start: 2024 HPV Vaccine (1 - 3-dose SCDM series) HPV Vaccine (1 - 3-dose SCDM series) [facility] Start: 10-13-2023 ANNUAL PCP TEAM CHRONIC DISEASE VISIT ANNUAL PCP TEAM CHRONIC DISEASE VISIT [facility] Start: 09-25-2023 ANNUAL PCP TEAM CHRONIC DISEASE VISIT ANNUAL PCP TEAM CHRONIC DISEASE VISIT [facility] Start: 09-04-2023 ANNUAL PCP TEAM CHRONIC DISEASE VISIT ANNUAL PCP TEAM CHRONIC DISEASE VISIT [facility] Start: 07-30-2023 Influenza vaccination [facility] Start: 07-22-2023 Screening for malignant neoplasm of cervix Cervical Cancer Screening [facility] Start: 06-08-2023 Adult depression screening assessment DEPRESSION SCREENING [facility] Start: 06-08-2023 ANNUAL PCP TEAM CHRONIC DISEASE VISIT ANNUAL PCP TEAM CHRONIC DISEASE VISIT [facility] Start: 05-25-2023 ANNUAL PCP TEAM CHRONIC DISEASE VISIT ANNUAL PCP TEAM CHRONIC DISEASE VISIT [facility] Start: 05-13-2023 ANNUAL PCP TEAM CHRONIC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 Hypoglycemia Migraines disorder alcohol syndrome. Prediabetes PTSD (post-traumatic stress disorder) Seizures ([facility]) 12/01/2017 psychogenic nonepileptical Tobacco use disorder Trichomoniasis 2018 treated PAST SURGICAL HISTORY Procedure Laterality Date COLONOSCOPY FLX DX W/COLLJ SPEC WHEN PFRMD 07/22/2020 Colonoscopy ESOPHAGOGASTRODUODENOSCOPY TRANSORAL DIAGNOSTIC 07/22/2020 EGD HYSTEROSCOPY DIAGNOSTIC 06/21/2019 for AUB, x2 LYSIS OF ADHESIONS 06/21/2019 diagnostic for chronic pelvic pain, omental adhesions to ant. abd. wall, pelvis normal, op report scanned SALPINGO-OOPHORECTOMY Right 08/11/2024 Dr. Zain Her; [place], [place] ALLERGIES Amoxicillin, Bee Venom Protein (Honey Bee), Lidocaine, Mushroom, Nexplanon [Etonogestrel], Adhesive Tape-Silicones, Carbocaine [Mepivacaine Hcl], Norethindrone Ac-Eth Estradiol, and Novacain [Procaine Hcl] MEDICATIONS Current Outpatient Medications Medication Sig DULoxetine DR (CYMBALTA) 30 mg capsule Take 1 capsule by mouth once daily. levETIRAcetam (KEPPRA) 1,000 mg tablet Take 1 tablet by mouth two times a day. spironolactone (ALDACTONE) 25 mg tablet Take 1 tablet by mouth once daily. hydrOXYzine HCl (ATARAX) 25 mg tablet Take 1-2 tablets by mouth at bedtime as needed (for sleep). folic acid 1 mg tablet Take 1 tablet by mouth once daily. ferrous sulfate 325 mg (65 mg iron) tablet Take 1 tablet by mouth two times a day with meals. gabapentin (NEURONTIN) 400 mg capsule Take 1 capsule by mouth daily at bedtime for 180 days. albuterol (PROVENTIL) 2.5 mg /3 mL (0.083 %) nebulizer solution 2.5 mg 3 times daily as needed over5-15 minutes for wheezing and shortness of breath. albuterol HFA (VENTOLIN HFA) 90 mcg/actuation inhaler Inhale 2 puffs as instructed every 4 hours asneeded. blood sugar diagnostic (BLOOD GLUCOSE TEST) test strip Test blood sugar(s) 2 times daily. Dx: Type 2 DM - Controlled E11.9 Insulin: No Lancets Test blood sugar(s) 2 times daily. Dx: Type 2 DM - Controlled E11.9 Insulin: No tiZANidine HCl (ZANAFLEX) 4 mg capsule Take 1 capsule by mouth three times a day as needed. atogepant (QULIPTA) 60 mg tablet Take 1 tablet by mouth once daily. naproxen (NAPROSYN) 500 mg tablet Take 1 tablet by mouth two times a day as needed (FOR PAIN - TAKEWITH FOOD.). albuterol (PROVENTIL) 2.5 mg/3 mL (0.083 %) nebulizer solution Use 3 mL via nebulizer every 4 hoursas needed for wheezing/shortness of breath. No current facility-administered medications for this visit. FAMILY HISTORY Adopted: Yes Problem Relation Age of Onset Colon Cancer Maternal Grandmother SOCIAL HISTORY[1] EXAM: BP 112/72 Pulse 77 Wt 79.4 kg (175 lb) LMP 12/28/2022 (Exact Date) SpO2 97% BMI 28.25 kg/m PHYSICAL EXAM: General Appearance: Well appearing, alert, in no acute distress, well-hydrated, well nourished.. Skin: Skin color, texture, turgor normal, no suspicious rashes or lesions. Head: Normocephalic, no masses, lesions, tenderness or abnormalities. Eyes: Anicteric sclera. Extraocular movements are intact. . Lungs: Lungs clear to auscultation. No wheezing, rhonchi, rales.. Heart: RRR without murmur, gallop, or rubs. No ectopy. Neurologic: Gait normal. ASSESSMENT/PLAN: 1. Intractable chronic migraine without aura and without status migrainosus - ICD9: 346.71, ICD10: G43.719 (primary diagnosis) Continues to have frequent debility d/t chronic migraines. Endorses more than 15 migraine days per month. Failed SSRI, SNRI, topamax, and OTC medications. Will start ajovy. Recheck in a month. - DULOXETINE 60 MG CAPSULE,DELAYED RELEASE - AJOVY 225 MG/1.5 ML SUBCUTANEOUS AUTO-INJECTOR 2. Encounter for gynecological examination without abnormal finding - ICD9: V72.31, ICD10: Z01.419 Due for annual exam. - CONSULT TO GYNECOLOGY Discussed treatment plan and patient voices understanding. Patient's questions answered appropriately. Medications and potential side effects were discussed and patient voices understanding. Return to the office as scheduled or as needed for worsening/no improvement. Di Arreola APRN.BAKARI [1] Social History Tobacco Use Smoking status: Some Days Current packs/day: 0.00 Average packs/day: 0.3 packs/day for 10.0 years (2.5 ttl pk-yrs) Types: Cigarettes Start date: 12/20/2012 Last attempt to quit: 12/20/2022 Years since quittin.6 Smokeless tobacco: Former Types: Chew Vaping Use Vaping status: Never Used Substance Use Topics Alcohol use: Yes Comment: rare occassion Drug use: No documented in this encounter[facility] Telephone encounter Note * Telephone Encounter - Mary Turpin RN - 06/29/2025 12:06 PM EDT Patient returned call and given provider's message below and patient verbalized understanding. Augustin Turpin RN [facility]08-01-[facility]25 Miscellaneous Notes* Telephone Encounter - Mary Turpin RN - 06/29/2025 12:06 PM EDT Patient returned call and given provider's message below and patient verbalized understanding. Augustin Turpin RN * Telephone Encounter - Zeenat Terrazas LPN - 06/29/2025 11:08 AM EDT Message left for pt to return call to a nurse. * Telephone Encounter - Di Arreola APRN.BAKARI - 06/29/2025 10:07 AM EDT Can please let patient know that I went ahead and changed her pristiq to duloxetine. This will still be one pill by mouth daily. The denial inferred that the pristiq was not going to be covered because of being off label. Pristiq (SNRI) is not off-label for major depressive disorder. The insurance did not want to cover qulipta for migraines and wanted a trial of an SNRI as step therapy, which is off-label for an SNRI. * Telephone Encounter - Zeenat Terrazas LPN - 06/29/2025 8:39 AM EDT Denial rec'd for desvenlafaxine succnt. Please review. This is in scanned documents. * Telephone Encounter - Alma Stewart MA - 06/27/2025 5:39 PM EDT Could not submit electronically. Did complete gainwell form and fax with office note Alma Stewart MA * Telephone Encounter - Marie Martinez MA - 06/26/2025 5:08 PM EDT Notified pt of below. She stated that she went to the pharmacy today and was told by pharmacist that a PA is needed on the Pristiq. Routed to PA nurse to handle. Marie Martinez MA * Telephone Encounter - Di Arreola APRN.CNP - 06/26/2025 4:57 PM EDT Can please let patient know that I received a denial from the insurance for the qulipta. They are requiring a 30 day trial of an SNRI (which is what the pristiq is). If there is no improvement with that, then they are recommending another preventative medication aninjectable). So please follow-up in a month, as planned so we can re-eval the headaches while she is on the pristiq. Di Arreola APRN.BAKARI * Telephone Encounter - Zeenat Terrazas LPN - 06/26/2025 3:00 PM EDT Images from the original note were not included. This was denied. Note from payer: Coverage is provided when the member meets the following requirements: 1. The member has a history of at least 30 days of therapy with at least TWO additional different preferred controller migraine medications AND one step therapy medication in this UPDL category. Preferred controller migraine medications include but are not limited to: beta-blockers (such as: propranolol and timolol), tricyclic antidepressants (such as: amitriptyline and nortriptyline), anticonvulsants (such as: topiramate), and/or serotonin- norepinephrine reuptake inhibitors (such as: venlafaxine ER capsules and duloxetine capsules (20, 30 and 60 mg). Step therapy medications include: Aimovig, Ajovy, andEmgality (all require step therapy prior authorization); AND 2. Provider has submitted objective documentation of severity, frequency, type of migraine, and number of headache days per month. Payer: [facility] Electronic appeal: Not supported View History Notes Time User Attachment Attachment received from payer. 06/26/2025 2:55 PM Cchs, Rx Priorauth In Document Medication Being Authorized atogepant (QULIPTA) 60 mg tablet Take 1 tablet by mouth once daily. Dispense: 30 tablet Refills: 2 Start: 06/25/2025 Class: Normal Diagnoses: Intractable migraine without status migrainosus, unspecified migraine type This order has been released to its destination. To be filled at: [facility] [address] [place] [address] [address] [facility] - [phone] * Telephone Encounter - Zeenat Terrazas LPN - 06/26/2025 8:51 AM EDT Electronic PA re'd and completed for qulipta 60mg. documented in this encounterUniversity [facility] Telephone encounter Note * Telephone Encounter - Zeenat Terrazas LPN - 06/29/2025 11:08 AM EDT Message left for pt to return call to a nurse. [facility] Telephone encounter Note* Telephone Encounter - Di Arreola APRN.BAKARI - 06/29/2025 10:07 AM EDT Can please let patient know that I went ahead and changed her pristiq to duloxetine. This will still be one pill by mouth daily. The denial inferred that the pristiq was not going to be covered because of being off label. Pristiq (SNRI) is not off-label for major depressive disorder. The insurance did not want to cover qulipta for migraines and wanted a trial of an SNRI as step therapy, which is off-label for an SNRI. [facility]08-01-[facility] Telephone encounter Note* Telephone Encounter - Zeenat Terrazas LPN - 06/29/2025 8:39 AM EDT Denial rec'd for desvenlafaxine succnt. Please review. This is in scanned documents. [facility]07-30-[facility]25 Telephone encounter Note* Telephone Encounter - Alma Stewart MA - 06/27/2025 5:39 PM EDT Could not submit electronically. Did complete gainwell form and fax with office note Alma Stewart MA [facility]07-29-[facility]25 Telephone encounter Note* Telephone Encounter - Marie Martinez MA - 06/26/2025 5:08 PM EDT Notified pt of below. She stated that she went to the pharmacy today and was told by pharmacist that a PA is needed on the Pristiq. Routed to PA nurse to handle. Marei Martinez MA [facility]07-29-2025 Telephone encounter Note* Telephone Encounter - Di Arreola APRN.CNP - 06/26/2025 4:57 PM EDT Can please let patient know that I received a denial from the insurance for the qulipta. They are requiring a 30 day trial of an SNRI (which is what the pristiq is). If there is no improvement with that, then they are recommending another preventative medication aninjectable). So please follow-up in a month, as planned so we can re-eval the headaches while she is on the pristiq. Di Arreola APRN.BAKARI [facility]07-29-[facility]25 Telephone encounter Note* Telephone Encounter - Ashleigh Mcallister RN - 06/26/2025 4:56 PM EDT Prescription Refill Information The patient has been identified by name and date of : Yes Caregiver verified no other encounters exist for this prescription request: Yes Caregiver confirmed with patient/requestor that no other refills are due, in the near future, with this provider at this time: Yes The last office visit in the department: 05/2025 Does the patient have a future office visit with this provider/department: Yes Requested Prescriptions Pending Prescriptions Disp Refills albuterol (PROVENTIL) 2.5 mg /3 mL (0.083 %) nebulizer solution 120 mL 1 Si.5 mg 3 times daily as needed over 5-15 minutes for wheezing and shortness of breath. albuterol HFA (VENTOLIN HFA) 90 mcg/actuation inhaler 6.7 g 1 Sig: Inhale 2 puffs as instructed every 4 hours as needed. levETIRAcetam (KEPPRA) 1,000 mg tablet 60 tablet 1 Sig: Take 1 tablet by mouth two times a day. Ashleigh Mcallister RN June 26, 2025 4:57 PM [facility]07-29-2025 Miscellaneous Notes* Telephone Encounter - Ashleigh Mcallister RN - 06/26/2025 4:56 PM EDT Prescription Refill Information The patient has been identified by name and date of : Yes Caregiver verified no other encounters exist for this prescription request: Yes Caregiver confirmed with patient/requestor that no other refills are due, in the near future, with this provider at this time: Yes The last office visit in the department: 05/2025 Does the patient have a future office visit with this provider/department: Yes Requested Prescriptions Pending Prescriptions Disp Refills albuterol (PROVENTIL) 2.5 mg /3 mL (0.083 %) nebulizer solution 120 mL 1 Si.5 mg 3 times daily as needed over 5-15 minutes for wheezing and shortness of breath. albuterol HFA (VENTOLIN HFA) 90 mcg/actuation inhaler 6.7 g 1 Sig: Inhale 2 puffs as instructed every 4 hours as needed. levETIRAcetam (KEPPRA) 1,000 mg tablet 60 tablet 1 Sig: Take 1 tablet by mouth two times a day. Ashleigh Mcallister RN June 26, 2025 4:57 PM documented in this encounterUniversity Hospitals [facility]07-29-2025 Telephone encounter Note * Telephone Encounter - Zeenat TerrazasJAMES - 06/26/2025 3:00 PM EDT Images from the original note were not included. This was denied. Note from payer: Coverage is provided when the member meets the following requirements: 1. The member has a history of at least 30 days of therapy with at least TWO additional different preferred controller migraine medications AND one step therapy medication in this UPDL category. Preferred controller migraine medications include but are not limited to: beta-blockers (such as: propranolol and timolol), tricyclic antidepressants (such as: amitriptyline and nortriptyline), anticonvulsants (such as: topiramate), and/or serotonin- norepinephrine reuptake inhibitors (such as: venlafaxine ER capsules and duloxetine capsules (20, 30 and 60 mg). Step therapy medications include: Aimovig, Ajovy, andEmgality (all require step therapy prior authorization); AND 2. Provider has submitted objective documentation of severity, frequency, type of migraine, and number of headache days per month. Payer: [facility] Electronic appeal: Not supported View History Notes Time User Attachment Attachment received from payer. 06/26/2025 2:55 PM Cchs, Rx Priorauth In Document Medication Being Authorized atogepant (QULIPTA) 60 mg tablet Take 1 tablet by mouth once daily. Dispense: 30 tablet Refills: 2 Start: 06/25/2025 Class: Normal Diagnoses: Intractable migraine without status migrainosus, unspecified migraine type This order has been released to its destination. To be filled at: [facility] [address] [place] [address] [address] [facility] - [phone] [facility] Telephone encounter Note* Telephone Encounter - Zeenat Terrazas LPN - 06/26/2025 8:51 AM EDT Electronic PA re'd and completed for qulipta 60mg. [facility]07-[facility] Telephone encounter Note* Telephone Encounter - Marie Martinez MA - 06/26/2025 7:58 AM EDT Pt brought in a form from the [facility] regarding her driving privileges. This has been completed. Copy made and original at medical records for pt to fiber picker. Pt notified of this via [employer]. Marie Martinez MA [facility]07-29-2025 Miscellaneous Notes* Telephone Encounter - Marie Martinez MA - 06/26/2025 7:58 AM EDT Pt brought in a form from the [facility] regarding her driving privileges. This has been completed. Copy made and original at medical records for pt to fiber picker. Pt notified of this via [employer]. Marie Martinez MA documented in this encounterUniversity Hospitals [facility]07-28-2025 NoteHNO ID: [id number] Author: DI ARREOLA APRN.GROVE SUPERINTENDENT Service: ? Author Type: Nurse Practitioner Type: Progress Notes Filed: 06/25/2025 22:18 Note Text: This is a 29 year old female who presents today with: Per Farmer is a 29-year-old female with a history of anxiety, depression, ADD, and seizures, presenting for medication management and evaluation of migraines. HISTORY OF PRESENT ILLNESS: Anxiety and Depression: - Currently taking sertraline 1.5 tablets daily . Was on escitalopram, but hasn't been taking d/t out. - Requests medication adjustment due to lack of efficacy. - Previously tried multiple medications, including Zoloft and escitalopram. - Reports that anxiety exacerbates ADD symptoms. ADD: - Chronic difficulty with focus and attention. - Previously treated with Strattera, Vyvanse, and Adderall. - Discontinued medications due to health reasons. Seizures: - Managed with Keppra. - Last seizure over five years ago. . - Followed previously by Dr. Licona at [facility], but released d/t stable. Migraines: - Currently reportedly taking topiramate 200 mg BID. - Requests dosage increase due to frequent migraines. - Has not tried other migraine medications. - Concerned about potential weight gain from new medications. She reports migraine headaches on almost every day of the month (> 15 days/month) Sleep Disturbance: - Taking hydroxyzine 2 (20 mg) tablets at bedtime with insufficient relief. - Requests dosage increase to improve sleep quality. Muscle Spasms: - Previously prescribed tizanidine, not currently taking due to lack of refills. Edema: - Taking spironolactone 25 mg daily for ankle edema. Rotator Cuff Injury: - Uses naproxen PRN for pain management. PAST MEDICAL HISTORY: PAST MEDICAL HISTORY Diagnosis Date Anemia Asthma ([facility]) Biliary colic Concussion without loss of consciousness 2021 Deafness deaf right ear 20 % hearing in left ear without hearing aid Depression Developmental delay alcohol syndrome ([facility]) Hearing impaired person, right Hypoglycemia Migraines disorder alcohol syndrome. Prediabetes PTSD (post-traumatic stress disorder) Seizures ([facility]) 12/01/2017 psychogenic nonepileptical Tobacco use disorder Trichomoniasis 2019 treated PAST SURGICAL HISTORY Procedure Laterality Date COLONOSCOPY FLX DX W/COLLJ SPEC WHEN PFRMD 07/22/2020 Colonoscopy ESOPHAGOGASTRODUODENOSCOPY TRANSORAL DIAGNOSTIC 07/22/2020 EGD HYSTEROSCOPY DIAGNOSTIC 06/21/2019 for AUB, x2 LYSIS OF ADHESIONS 06/21/2019 diagnostic for chronic pelvic pain, omental adhesions to ant. abd. wall, pelvis normal, op report scanned SALPINGO-OOPHORECTOMY Right 08/11/2024 Dr. Zain Her; [place], [place] ALLERGIES Amoxicillin, Bee Venom Protein (Honey Bee), Lidocaine, Mushroom, Nexplanon [Etonogestrel], Adhesive Tape-Silicones, Carbocaine [Mepivacaine Hcl], Norethindrone Ac-Eth Estradiol, and Novacain [Procaine Hcl] MEDICATIONS Current Outpatient Medications Medication Sig topiramate (TOPAMAX) 50 mg tablet Take 1 tablet by mouth two times a day. folic acid 1 mg tablet Take 1 tablet by mouth once daily. ferrous sulfate 325 mg (65 mg iron) tablet Take 1 tablet by mouth two times a day with meals. albuterol HFA (VENTOLIN HFA) 90 mcg/actuation inhaler Inhale 2 puffs as instructed every 4 hours as needed. levETIRAcetam (KEPPRA) 1,000 mg tablet Take 1 tablet by mouth two times a day. gabapentin (NEURONTIN) 400 mg capsule Take 1 capsule by mouth daily at bedtime for 180 days. albuterol (PROVENTIL) 2.5 mg /3 mL (0.083 %) nebulizer solution 2.5 mg 3 times daily as needed over 5-15 minutes for wheezing and shortness of breath. blood sugar diagnostic (BLOOD GLUCOSE TEST) test strip Test blood sugar(s) 2 times daily. Dx: Type 2 DM - Controlled E11.9 Insulin: No Lancets lancets Test blood sugar(s) 2 times daily. Dx: Type 2 DM - Controlled E11.9 Insulin: No albuterol (PROVENTIL) 2.5 mg/3 mL (0.083 %) nebulizer solution Use 3 mL via nebulizer every 4 hours as needed for wheezing/shortness of breath. tiZANidine HCl (ZANAFLEX) 4 mg capsule Take 1 capsule by mouth three times a day as needed. desvenlafaxine ER (PRISTIQ) 25 mg 24 hr tablet Take one pill by mouth daily X 1 week; then increase to two pills daily. atogepant (QULIPTA) 60 mg tablet Take 1 tablet by mouth once daily. naproxen (NAPROSYN) 500 mg tablet Take 1 tablet by mouth two times a day as needed (FOR PAIN - TAKE WITH FOOD.). spironolactone (ALDACTONE) 25 mg tablet Take 1 tablet by mouth once daily. hydrOXYzine HCl (ATARAX) 25 mg tablet Take 1-2 tablets by mouth at bedtime as needed (for sleep). No current facility-administered medications for this visit. FAMILY HISTORY Adopted: Yes Problem Relation Age of Onset Colon Cancer Maternal Grandmother Social History Tobacco Use Smoking status: Some Da (more content not included)...[facility] 06-25-2025 History of Present illness Narrative* Di Arreola APRN.GROVE SUPERINTENDENT - 06/25/2025 7:16 PM EDT This is a 29 year old female who presents today with: Per Ira Farmer is a 29-year-old female with a history of anxiety, depression, ADD, and seizures,presenting for medication management and evaluation of migraines. HISTORY OF PRESENT ILLNESS: Anxiety and Depression: - Currently taking sertraline 1.5 tablets daily . Was on escitalopram, but hasn't been taking d/t out. - Requests medication adjustment due to lack of efficacy. - Previously tried multiple medications, including Zoloft and escitalopram. - Reports that anxiety exacerbates ADD symptoms. ADD: - Chronic difficulty with focus and attention. - Previously treated with Strattera, Vyvanse, and Adderall. - Discontinued medications due to health reasons. Seizures: - Managed with Keppra. - Last seizure over five years ago. . - Followed previously by Dr. Licona at [facility], but released d/t stable. Migraines: - Currently reportedly taking topiramate 200 mg BID. - Requests dosage increase due to frequent migraines. - Has not tried other migraine medications. - Concerned about potential weight gain from new medications. She reports migraine headaches on almost every day of the month (> 15 days/month) Sleep Disturbance: - Taking hydroxyzine 2 (20 mg) tablets at bedtime with insufficient relief. - Requests dosage increase to improve sleep quality. Muscle Spasms: - Previously prescribed tizanidine, not currently taking due to lack of refills. Edema: - Taking spironolactone 25 mg daily for ankle edema. Rotator Cuff Injury: - Uses naproxen PRN for pain management. PAST MEDICAL HISTORY: PAST MEDICAL HISTORY Diagnosis Date Anemia Asthma ([facility]) Biliary colic Concussion without loss of consciousness 2021 Deafness deaf right ear 20 % hearing in left ear without hearing aid Depression Developmental delay alcohol syndrome ([facility]) Hearing impaired person, right Hypoglycemia Migraines disorder alcohol syndrome. Prediabetes PTSD (post-traumatic stress disorder) Seizures ([facility]) 12/01/2017 psychogenic nonepileptical Tobacco use disorder Trichomoniasis 2018 treated PAST SURGICAL HISTORY Procedure Laterality Date COLONOSCOPY FLX DX W/COLLJ SPEC WHEN PFRMD 07/22/2020 Colonoscopy ESOPHAGOGASTRODUODENOSCOPY TRANSORAL DIAGNOSTIC 07/22/2020 EGD HYSTEROSCOPY DIAGNOSTIC 06/21/2019 for AUB, x2 LYSIS OF ADHESIONS 06/21/2019 diagnostic for chronic pelvic pain, omental adhesions to ant. abd. wall, pelvis normal, op report scanned SALPINGO-OOPHORECTOMY Right 08/11/2024 Dr. Zain Her; [place], [place] ALLERGIES Amoxicillin, Bee Venom Protein (Honey Bee), Lidocaine, Mushroom, Nexplanon [Etonogestrel], Adhesive Tape-Silicones, Carbocaine [Mepivacaine Hcl], Norethindrone Ac-Eth Estradiol, and Novacain [Procaine Hcl] MEDICATIONS Current Outpatient Medications Medication Sig topiramate (TOPAMAX) 50 mg tablet Take 1 tablet by mouth two times a day. folic acid 1 mg tablet Take 1 tablet by mouth once daily. ferrous sulfate 325 mg (65 mg iron) tablet Take 1 tablet by mouth two times a day with meals. albuterol HFA (VENTOLIN HFA) 90 mcg/actuation inhaler Inhale 2 puffs as instructed every 4 hours asneeded. levETIRAcetam (KEPPRA) 1,000 mg tablet Take 1 tablet by mouth two times a day. gabapentin (NEURONTIN) 400 mg capsule Take 1 capsule by mouth daily at bedtime for 180 days. albuterol (PROVENTIL) 2.5 mg /3 mL (0.083 %) nebulizer solution 2.5 mg 3 times daily as needed over5-15 minutes for wheezing and shortness of breath. blood sugar diagnostic (BLOOD GLUCOSE TEST) test strip Test blood sugar(s) 2 times daily. Dx: Type 2 DM - Controlled E11.9 Insulin: No Lancets lancets Test blood sugar(s) 2 times daily. Dx: Type 2 DM - Controlled E11.9 Insulin: No albuterol (PROVENTIL) 2.5 mg/3 mL (0.083 %) nebulizer solution Use 3 mL via nebulizer every 4 hoursas needed for wheezing/shortness of breath. tiZANidine HCl (ZANAFLEX) 4 mg capsule Take 1 capsule by mouth three times a day as needed. desvenlafaxine ER (PRISTIQ) 25 mg 24 hr tablet Take one pill by mouth daily X 1 week; then increaseto two pills daily. atogepant (QULIPTA) 60 mg tablet Take 1 tablet by mouth once daily. naproxen (NAPROSYN) 500 mg tablet Take 1 tablet by mouth two times a day as needed (FOR PAIN - TAKEWITH FOOD.). spironolactone (ALDACTONE) 25 mg tablet Take 1 tablet by mouth once daily. hydrOXYzine HCl (ATARAX) 25 mg tablet Take 1-2 tablets by mouth at bedtime as needed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 down right side of abdomen 2. RADIATION: Back sometimes 3. ONSET: On and off since surgery; Had Right ovary clinic 4. SUDDEN: Gradual 5. PATTERN Comes and Goes, but is getting worse 6. SEVERITY: Patient states that pain get be really severe where she cannot do anything. Patient states that pain is fine right now, at a 3 or 4. 7. RECURRENT SYMPTOM: Patient had this pain before, Right ovary was taken out; Patient states that she has had stomach issues for years. 8. CAUSE: Unsure 9. RELIEVING/AGGRAVATING FACTORS: Denies 10. OTHER SYMPTOMS: Diarrhea, but that has been going on for a long time since gallbladder was removed.; back pain Protocols used: Abdominal Pain - [id number] documented in this encounterUniversity Hospitals [facility] Center09-14-2023 Miscellaneous Notes* Telephone Encounter - Felipa Bah LPN - 08/12/2023 3:27 PM EDT Faxed to number provided. * Telephone Encounter - Sophie Avalos MD - 08/12/2023 3:09 PM EDT done * Telephone Encounter - Ira Finn RN - 08/12/2023 2:56 PM EDT Estephanie at [facility] in [place], reports they received 2 Rx's that do not make sense, for diabeticsupplies. Reports the refills do not match, the number of times a day the patient tests does not match. Please correct and resend to Pended to match 2 x's day, and 11 refills, and set to print. Appears in previous message patient wanted rx's sent to [facility] in [place], which is the same place that called. documented in this encounterUniversity Hospitals [facility] Center09-14-2023 Miscellaneous Notes* Telephone Encounter - Keely Ward LPN - 08/12/2023 11:38 AM EDT Anjel--10/13/22 Nov--nothing scheduled Last refill--09/25/22 100 with 1 refill Last labs--07/16/22 documented in this encounterUniversity Hospitals [facility] Center04-03-2023 Miscellaneous Notes* Telephone Encounter - Maame Rabago RN - 03/01/2023 2:31 PM EDT Spoke with patient. Given message from provider's office. Patient verbalizes understanding. Maame Rabago RN * Telephone Encounter - Di Arreola APRN.BAKARI - 03/01/2023 2:05 PM EDT I sent in the folic acid. It doesn't look like we have ever prescribed the tizanidine. Would need evaluation. * Telephone Encounter - Maame Rabago RN - 03/01/2023 1:49 PM EDT Patient has been identified by name and date of : Yes, Provider Date Time Patient phones for refill(s): Requested Prescriptions Pending Prescriptions Disp Refills tiZANidine HCl (ZANAFLEX) 4 mg capsule Sig: Take 1 capsule by mouth three times daily as needed. folic acid 1 mg tablet 90 tablet 3 Sig: Take 1 tablet by mouth once daily. Patient has moved to [place]. Advised to establish care with PCP in the local area. She saysshe will try to this month. Date of last office visit with pcp: 10/13/22 Date of last office visit in primary care: Last 2 Encounter Wt Readings: Date: Wt: 01/19/2023 94.8 kg (209 lb) 12/28/2022 94.8 kg (209 lb) Previous labs/tests for medication: Not applicable Please advise. Thank you. Maame Rabago RN documented in this encounterUniversity Hospitals [facility]wood [facility] Center03-11-[address] [facility] February 06, 2023 11:21pm Note Date/Time February 06, 2023 9:2 2pm [facility] Medical Records Department [address] [place] [address] Emergency Department Summary 02/06/23 MR#: [id number] Acct: [id number] Name: PER FARMER Rep #:[id number] : 1995 27 From: Pola Garza MD PCP: Dr. Sophie Avalos MD Status:REG E R Location: ED HPI HPI - GI History of Present Illness Chief Complaint: Diarrhea Detail of Chief Complaint: Abdominal pain, nausea, vomiting diarrhea. Also complains of right-sided h Informant: patient and friend Abdominal Pain/Flank Pain Onset: Today Context: Sudden Onset Timing: Intermittent Quality: Aching Location: Diffuse Current Severity: Mild Maximum Severity: Moderate Worsened by: Nothing Relieved by: Nothing Nausea/Vomiting/Emesis GI Symptom: Positive for Nausea and Vomiting (3 episodes since this morning) Onset: Today Quality: Negative for Nonbilious, Blood streaks, Coffee ground or Hematemesis Diarrhea/Melena/Hematochezia GI Symptom: Positive for Diarrhea (6 episodes since this morning); Negative for Melena or Hematochezia Onset: Today Stool Quality: Positive for Loose and Watery Associated Symptoms Associated Symptoms: Negative for Dysuria, Frequency, Hematuria or Urgency LMP: I am on control . Narrative Narrative: Patient is a 27-year-old G0, P0 female who presents with complaint of abdominal discomfort, nausea, vomiting diarrhea. Illness started today. 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 She also complains of right-sided headache. She has history of migraines. She denies fever, chills night sweats. Denies double vision, blurred vision loss of vision. Denied photophobia or sonophobia. She denies rhinorrhea, congestion postnasal drainage. She denies sore throat. She does endorse dry mouth and thirst. She denies cough or shortness of breath. She denies chest discomfort. She does report diffuse abdominal pain. She denies hematemesis, melena medic easier. She denies urologic symptoms. She denies myalgias or arthralgias. She denies joint swelling. She denies rash. Prior similar symptoms: Yes Recent Illness[facility] Medical History ADHD Anemia Anxiety Depression Dermoid cyst of right ovary HPV (human papilloma virus) infection IBS (irritable bowel syndrome) Migraines Seizures Home Medications albuterol sulfate 90 mcg/actuation aerosol inhaler (Ventolin HFA) 1 puff inhalation Q4H PRN PRN Wheezing 07/02/17 [History Last Taken Unknown] sertraline 100 mg tablet 100 mg PO DAILY 10/18/17 [History Last Taken Unknown] ferrous sulfate 325 mg (65 mg iron) tablet 325 mg PO DAILY 10/18/19 [History Last Taken Unknown] topiramate 50 mg tablet 50 mg PO BID 03/16/20 [History Last Taken Unknown] sulfacetamide sodium 10 % eye drops 2 drp EACH EYE Q4H PRN 06/19/22 [History Last Taken Unknown] ondansetron 4 mg disintegrating tablet 4 mg PO Q8H PRN PRN Nausea #10 tabs 07/31/22 [Rx Last Taken Unknown] naproxen 500 mg tablet (Naprosyn) 500 mg PO BID PRN pain #20 tabs 09/24/22 [Rx Last Taken Unknown] tizanidine 4 mg capsule (Zanaflex) 4 mg PO Q8H PRN muscle spasticity #14 caps 09/24/22 [Rx Last Taken Unknown] folic acid 1 mg tablet 1 mg PO DAILY 10/17/22 [History Last Taken Unknown] albuterol sulfate 90 mcg/actuation aerosol inhaler (Ventolin HFA) 1 - 2 puff inhalation Q4H PRN PRN Wheezing #1 device 01/09/23 [Rx Last Taken Unknown] ipratropium 0.5 mg-albuterol 3 mg (2.5 mg base)/3 mL nebulization soln 3 ml inhalation Q6H PRN shortness of breath or wheezing #180 mL 01/09/23 [Rx Last Taken Unknown] nebulizer and compressor #1 ea 01/09/23 [Rx Last Taken Unknown] promethazine 6.25 mg-codeine 10 mg/5 mL syrup 5 ml PO 4X/DAY PRN PRN cough 7 days #140 mL 01/09/23 [Rx Last Taken Unknown] Allergy/AdvReac Type Severity Reaction Status Date / Time amoxicillin Allergy Anaphylaxis Verified 10/17/22 19:05 bee venom protein (honey bee) Allergy Swelling Verified 10/17/22 19:05 etonogestrel [From Nexplanon] Allergy Swelling Verified 10/17/22 19:05 lidocaine Allergy Anaphylaxis Verified 10/17/22 19:05 mepivacaine [From Carbocaine] Allergy Swelling Verified 10/17/22 19:05 mushroom Allergy Other Verified 10/17/22 19:05 procaine [From Novocain] Allergy Swelling Verified 10/17/22 19:05 adhesive tape AdvReac Rash Verified 10/17/22 19:05 Surgical History Hx of laparoscopy Social History household members: friend(s) Smoking Status: Former smoker alcohol intake: current alcohol intake frequency: other substance use type: does not use ROS ROS ED Constitutional Constitutional ED: Denies chills, fever(s), subjective, sweats or weight loss ENT ENT ED: Denies ear pain, rhinorrhea or sore throat Cardiovascular Cardiovascular: Denies chest pain or palpitations Respiratory/Chest Respiratory/Chest: Denies cough, dyspnea or dyspnea on exertion Gastrointestinal Gastrointestinal: Reports abdominal pain, nausea and vomiting; Denies constipation or melena Genitourinary Genitourinary ED: Denies dysuria, hematuria or urinary frequency Musculoskeletal Musculoskeletal: Denies arthralgias, back pain, myalgias or neck pain Integumentary Denies rash Neurologic Neurologic: Reports headache(s); Denies paresthesias or weakness Endocrine Endocrinology: Denies polydipsia, polyphagia or polyuria Hematologic/Lymphatic Hematologic/Lymphatic: Denies easy bleeding or easy bruising EXAM Physical Exam Const Vital Signs: 02/06/23 21:07 02/06/23 21:07 02/06/23 23:08 Temperature 97.1 F L 97.1 F L Temperature Source Temporal Temporal Pulse Rate 101 H 101 H 83 Respiratory Rate 16 18 16 Blood Pressure 118/78 118/78 112/71 Blood Pressure Mean 91 91 84 Pulse Ox 98 Oxygen Delivery Method Room Air Positive well nourished, well developed, obese and unkempt General Appearance ED: unkempt, well developed and NAD; Negative for pallor Nutritional Appearance: obese HEENT Reports TM's clear and dry mucous membranes HEENT Narrative: Ears are normal. Nares patent. Posterior pharynx is normal. normocephalic and atraumatic Tympanic Membrane ED: Yes TM's clear Mouth ED: Yes dry mucous membranes Mouth: dry mucous membranes Eyes PERRL and EOMs intact bilaterally General Eye ED: Negative for pale conjunctiva or scleral icterus Neck no lymphadenopathy, supple and no JVD Resp normal respiratory effort and clear to auscultation bilaterally Cardio regular rate, regular rhythm, S1 normal heart sound, S2 normal heart sound and no murmurs GI non-tender, non-distended and no masses Auscultation: hyperactive bowel sounds Palpation: soft Back/Spine no CVA tenderness Extremity full ROM General Extremety ED: Negative for edema or tenderness General Extremity: Negative for edema Neuro CN's II-XII intact bilaterally, moves all extremities, no sensory deficits notedand gait normal Sensorium / Orientation: alert Psych mental status grossly normal and thought process normal Appearance: unkempt Skin no wounds General Skin Exam: Negative for jaundice or pallor Lesions: no lesions Rashes: no rashes MDM MDM MDM Narrative Medical decision making narrative: Patient presents with abdominal pain with nausea vomiting diarrhea. Suspect this is related to a viral illness. Headache may be a viral cephalgia. If no improvement with treatment will treat for migraine headache. Clinically she appears dehydrated and is tachycardic will order 1 L of normal saline. Zofran was ordered for her nausea and vomiting. Will order Imodium for her diarrhea and Bentyl for her reported cramping abdominal pain as well. Prior records were reviewed. Patient does have history of migraine headaches. She has not been in the emergency department recently for migraine headaches. Past history is remarkable for alcohol syndrome. Because she has history of diet- controlled diabetes we will obtain PGT to assess glucose. Lab Data Labs: Laboratory Results - last 24 hr 02/06/23 21:39 POC Glucose 130 H Treatment and Re-Evaluation :: Patient was reassessed at 2318. She has had no vomiting or diarrhea during her stay. He has passed p.o. challenge. She reports she feels better. She will bedischarged to home. Discharge Plan Triage Chief Complaint: Diarrhea ED Provider: Pola Garza Dx/Rx/DC Orders Clinical Impression: Combined abdominal pain, vomiting, and diarrhea, alcohol syndrome, Diet-controlled diabetes mellitus, Mild dehydration Instructions: ED Vomiting and Diarrhea ... Prescriptions: No Action albuterol sulfate [Ventolin HFA] 1 INHALER inhaler 1 puff inhalation Q4H PRN PRN (Reason: Wheezing) sertraline 100 MG tablet 100 mg PO DAILY ferrous sulfate 325 MG tablet 325 mg PO DAILY Label Comments: Take 1 tablet by mouth twice daily with meals. topiramate 50 MG tablet 50 mg PO BID sulfacetamide sodium 10 % drops 2 drp EACH EYE Q4H PRN Label Comments: APPLY 2 (TWO) DROPS IN BOTH EYES EVERY 4 HOURS FOR 7 DAYS ondansetron [ondansetron] 4 mg tablet,disintegrating 4 mg PO Q8H PRN PRN (Reason: Nausea) Qty: 10 0RF tizanidine [Zanaflex] 4 mg capsule 4 mg PO Q8H PRN (Reason: muscle spasticity) Qty: 14 0RF naproxen [Naprosyn] 500 mg tablet 500 mg PO BID PRN (Reason: pain) Qty: 20 0RF folic acid 1 mg tablet 1 mg PO DAILY Label Comments: Take 1 tablet by mouth once daily. albuterol sulfate [Ventolin HFA] 90 mcg/actuation HFA aerosol inhaler 1 - 2 puff inhalation Q4H PRN PRN (Reason: Wheezing) Qty: 1 2RF ipratropium-albuterol 0.5 mg-3 mg(2.5 mg base)/3 mL solution for nebulization 3 ml inhalation Q6H PRN (Reason: shortness of breath or wheezing) Qty: 180 1RF promethazine-codeine 6.25-10 mg/5 mL syrup 5 ml PO 4X/DAY PRN PRN (Reason: cough) 7 Days Qty: 140 0RF (DME) nebulizer and compressor Device See Rx Instructions .Route Qty: 1 0RF Rx Instructions: As directed Stand Alone Forms: ED Work / School Excuse Primary Care Provider: Sophie Avalos Referrals: Sophie Avalos MD [Primary Care Provider] - 3-5 Days if not improving Disposition Disposition: Home, Self Care What to do if you have Problems For any increased pain, shortness of breath, bleeding, nausea or vomiting, chestpain, or any unexpected problems, contact your Primary Care Provider. Call [facility] ([phone]) or report to the closest Emergency Room. Call 911 if necessary. 02/06/231 <Electronically signed by Pola Garza MD> Cosigner Signature (if applicable): CC: Dr. Sophie Avalos MD ~ Signed [facility] Work Phone: 1(468) 389-501302-21-2023 NoteHNO ID: [id number] Author: Cecilia Craig PA-C Service: ? Author Type: Physician Branch Manager Type: Progress Notes Filed: 01/19/2023 1:08 PM Note Text: Cecilia Craig PA-C Hepatobiliary Surgery [address] [facility], [address] [place] [address] SUBJECTIVE Per Farmer is a 27 year old female here for a post op visit. The patient is s/p laparoscopic cholecystectomy by Dr. Walsh on 12/31/2022. She is reporting improvement in pain following surgery. She does have minimal tenderness at the umbilicus, but this is improving. She is having bowel movements, but is not going daily. She states she goes once every few days and it can be a mixture of hard and diarrhea like stools. She denies nausea, vomiting, fevers/chills. The ROS, medical, surgical, family, and social history were reviewed by Cecilia Craig PA-C OBJECTIVE BP 121/81 Pulse 81 Ht 167.6 cm (5' 6) Wt 94.8 kg (209 lb) LMP 12/28/2022 (Exact Date) SpO2 95% BMI 33.73 kg/m? BMI 33.73 kg/(m2) Physical Exam: General: Patient seated in no acute distress Respiratory: Breathing comfortably on room air Cardiovascular: Regular rate and rhythm Abdomen: Soft, non tender, non distended. Incisions intact without erythema, edema, or discharge. Neurologic: She is alert and oriented to person, place, and time. Plan S/p cholecystectomy The patient is 2 weeks s/p cholecystectomy. Overall she is recovering well. She is having some constipation, though she has not been using pain medications. I recommended adding fiber supplement. She states it is too expensive, so will prescribe and see if insurance will cover. Otherwise, if she continues to do well, she can follow up on a prn basis. All questions were answered to the patient's satisfaction and she is agreeable with the plan. Cecilia Craig PA-C 01/19/2023 1:01 [facility]02-21-2023 History of Present illness Narrative* Cecilia Craig PA-C - 01/19/2023 1:00 PM EST Images from the original note were not included. Cecilia Craig PA-C Hepatobiliary Surgery [address] [facility], [address] [place] [address] SUBJECTIVE Per Farmer is a 27 year old female here for a post op visit. The patient is s/p laparoscopic cholecystectomy by Dr. Walsh on 12/31/2022. She is reporting improvement in pain following surgery. She does have minimal tenderness at the umbilicus, but this is improving. She is having bowel movements, but is not going daily. She states she goes once every few days and it can be a mixture of hard and diarrhea like stools. She denies nausea, vomiting, fevers/chills. The ROS, medical, surgical, family, and social history were reviewed by Cecilia Craig PA-C OBJECTIVE BP 121/81 Pulse 81 Ht 167.6 cm (5' 6) Wt 94.8 kg (209 lb) LMP 12/28/2022 (Exact Date) SpO2 95% BMI 33.73 kg/m BMI 33.73 kg/(m^2) Physical Exam: General: Patient seated in no acute distress Respiratory: Breathing comfortably on room air Cardiovascular: Regular rate and rhythm Abdomen: Soft, non tender, non distended. Incisions intact without erythema, edema, or discharge. Neurologic: She is alert and oriented to person, place, and time. Plan S/p cholecystectomy The patient is 2 weeks s/p cholecystectomy. Overall she is recovering well. She is having some constipation, though she has not been using pain medications. I recommended adding fiber supplement. Shestates it is too expensive, so will prescribe and see if insurance will cover. Otherwise, if she continues to do well, she can follow up on a prn basis. All questions were answered to the patient's satisfaction and she is agreeable with the plan. Cecilia Craig PA-C 01/19/2023 1:01 PM documented in this encounterUniversity Hospitals [facility]02-02-2023 NoteHNO ID: [id number] Author: Denice Vo APRN.SUSTAINABLE COMMUNITIES DESIGNER Service: Anesthesiology Author Type: Nurse Analysis Reporting Developer Type: Anesthesia Procedure Notes Filed: 12/31/2022 10:49 AM Note Text: ANESTHESIOLOGY PROCEDURE NOTE PIV General Information Procedure Start Time/Medication Administration: 12/31/2022 10:00 AM Patient Location: OR Staffing SUSTAINABLE COMMUNITIES DESIGNER: Denice Vo APRN.SUSTAINABLE COMMUNITIES DESIGNER Performed by: TIFFANIE Preparation Sterility Preparation: hand hygiene performed prior to procedure, surgical cap used, mask used, skin prep agent completely dried prior to procedure Site Prep: Chloraprep Procedure Details Indication: need for IV access Needle Size/Type: 20 gauge angiocath Orientation: Right Location: Antecubital SIGNATURE: Denice Vo APRN.SUSTAINABLE COMMUNITIES DESIGNER PATIENT NAME: Per Farmer DATE: December 31, 2022 TIME: 10:48 AM [facility]: [id number]23 NoteHNO ID: [id number] Author: Denice Vo APRN.SUSTAINABLE COMMUNITIES DESIGNER Service: Anesthesiology Author Type: Nurse Analysis Reporting Developer Type: Anesthesia Procedure Notes Filed: 12/31/2022 10:48 AM Note Text: ANESTHESIOLOGY PROCEDURE NOTE Airway General Information Procedure Start Time/Medication Administration: 12/31/2022 10:08 AM Patient location during procedure: OR Timeout Performed Pre-procedure: timeout performed Consent Obtained: Yes Patient identity confirmed: arm band and patient Staffing SUSTAINABLE COMMUNITIES DESIGNER: Denice Vo APRN.SUSTAINABLE COMMUNITIES DESIGNER Performed by: TIFFANIE Indications and Patient Condition Indications for airway management: anesthesia and airway protection Preoxygenated: yes anesthesia circuit Patient position: sniffing Method: asleep Final Airway Details Final airway type: endotracheal airway Final Endotracheal Airway: ETT Cuffed: yes Successful intubation technique: direct laryngoscopy Devices used: intubating stylet Endotracheal tube insertion site: oral Blade: Trupti Blade size: #4 ETT size (mm): 7.5 Measured from: lips Measurement (cm): 22 Placement verified by: capnometry Cormack-Lehane Classification: grade IIa - partial view of glottis Number of attempts at approach: 1 SIGNATURE: Denice Vo APRN.SUSTAINABLE COMMUNITIES DESIGNER PATIENT NAME: Per Farmer DATE: December 31, 2022 TIME: 10:46 AM [facility]: [id number] History of Present illness Narrative* Isabella Domingo LPN - 12/28/2022 10:18 AM EST Patient identified by name and date of . Per Farmer is here for a Depo Provera injection. Patient brought medication. Date last injected: 07/22/2022 Depo-Provera, 150 mg, administered IM left deltoid, Lot # [id number], expiration date 09/28/2024. Depo-Provera was given without incident. Date of last menses: No LMP recorded (lmp unknown). Patient has had an injection. Irregular bleeding - Yes Menses ceased - No STD prevention discussed: Yes Patient instructed to return to clinic in 12 weeks. [email or web address] Provider Jakub Martin was present in office at time of injection. Isabella Domingo LPN documented in this encounterUniversity Hospitals [facility]01-26-2023 Instructions* Patient Instructions* Rupal Gibson APRN.GROVE SUPERINTENDENT - 12/24/2022 11:44 AM EST PATIENT PREOPERATIVE INSTRUCTIONS Juaquin Walsh MD has scheduled you for your procedure at this surgery center: [facility]: [phone], [address] [place] [id number] Please read below carefully for your personalized instructions. Date of Surgery:12/31/2022 Time of surgery:9:40 AM Arrival Time for Surgery: 7:40 AM Please be aware that emergency situations arise, which may delay or change your surgical time. If this happens, we will notify you as soon as possible and regret any inconvenience. Dietary Restrictions: - No solid food after midnight. - You may have 12 ounces of clear liquids (water, black coffee, clear juices such as apple juice orGatorade, carbonated beverages) until 4 hours before scheduled surgery. Medications: AVS was given to patient and specific instructions for each medication reviewed. Please continue totake blood pressure medications including day of surgery. Any oral diabetic medications should be held day of surgery. If you are taking insulin please discuss with prescribing physician for pre op instructions. Blood Thinning Medications: - Stop NSAIDS (Ibuprofen, Advil, Aleve, Motrin, Celebrex, Mobic, etc.) 7 days before surgery, as directed by your surgeon. - If you take any of the following blood thinners, please contact your surgeon and the physician who prescribes it for you in order to get perioperative instructions as soon as possible Blood thinners: Aspirin,Coumadin, Plavix, Eliquis, Pradaxa, Xarelto, Lovenox, Brilinta, Effient, Savaysa, etc. - Stop Vitamin E, fish oil, Ginko, Chance's Wort, flax seed oil, multivitamins, CBD oil, marijuana and other over the counter herbals and dietary supplements 7 days before surgery. This would not apply to cancer patients who are prescribed Marinol or any other prescription form of marijuana or CBD. Please follow up with the provider that manages your diabetes on how to prepare you for surgery. If you are taking the following medications for Type 2 diabetes: Canagliflozin (INVOKANA), dapagliflozin (FARXIGA), and empagliflozin (JARDIANCE) should each be discontinued at least 3 days before scheduled surgery. Ertugliflozin (STEGLATRO) should be discontinued at least four days before scheduled surgery. Pain Medications: - You may take Tylenol (Acetaminophen) or any of your current prescribed pain medications that do not contain aspirin or NSAIDS as needed. Approved medications can be taken the morning of surgery with a sip of water. If you start any new medications after today's visit, please contact the surgeon's office. Important Reminders: - If you use CPAP/BIPAP, bring the machine with you to the surgery center. - If you are prescribed inhalers for breathing, continue using them AND bring them to the surgery center. - Candy, mints, gum and tobacco products are NOT permitted the morning of surgery. - Hearing aids, dentures and glasses may be worn the morning of surgery. - NO jewelry, body piercings, makeup, hairpins or contacts are to be worn the day of surgery. - NO lotion, creams, powders or deodorants on the skin the day of surgery - You will need to have someone else (Family or friend) drive you home once discharged from the hospital. You cannot take a cab or Uber. You are not allowed to drive yourself home after surgery. -You will need an adult(over the age of 18) to stay with you for the first 24 hours post surgery oryour surgery may be cancelled. Please speak with your surgeon if this is an issue. Surgical scrub given day of PST. If you develop symptoms such as a fever, cold, or flu, or have other changes to your health within TWO DAYS of scheduled surgery or the morning of surgery, please contact the surgery center above. Check with surgeon to see if covid test is needed. Personal Belongings: - Leave ALL valuables and money at home or with family members. - You will need a form of ID and insurance card to check in the morning of surgery. - You will have to wear a hospital gown during your stay but if you wish to bring undergarments forafter surgery you may. Please note-you should have a 72-hour period between getting your vaccine and date of surgery - If you have a stimulator, implant or pump that requires a remote please bring the remote with youday of surgery Our anesthesia department recommends reading Prepare for Surgery, Heal Faster: A Guide of Mond-BodyTechniques by Mari Uribe prior to surgery. Rupal Gibson APRN.BAKARI documented in this encounterUniversity Hospitals [facility]01-26-2023 History and physical note * Rupal Gibson APRN.CNP - 12/24/2022 11:20 AM EST HISTORY AND PHYSICAL EXAMINATION SERVICE DATE: 12/23/2022 SERVICE TIME: 11:59 AM PRIMARY CARE PHYSICIAN: Sophie Avalos MD REASON FOR VISIT: Per Farmer is a 27 year old female who is scheduled for Procedure(s): LAPAROSCOPIC CHOLECYSTECTOMY POSSIBLE OPEN (N/A) at the request of Dr. Juaquin Walsh for routine H&P. My final recommendation will be communicated back to the requesting physician by way of shared medical record or letter. Subjective The patient has the following: ACTIVE PROBLEM LIST Chronic Rlq Pain Nicotine use disorder, F17.2 Developmental Delay Psychogenic Nonepileptic Seizure Hearing Impaired Person, Bilateral Depression Ptsd (Post-Traumatic Stress Disorder) Neurological Disorder Acute Pain of Left Knee Asthma Migraine Gerd (Gastroesophageal Reflux Disease) Nicolette (Iron Deficiency Anemia) Altered Bowel Habits History of Esophagogastroduodenoscopy (Egd) H/O Colonoscopy Bilateral Ankle Pain Patellofemoral Pain Syndrome of Both Knees Hypermobile Joints Lgsil On Pap Smear of Cervix Acute Pain of Right Shoulder COVID-19 Immunization Status Overdue - COVID-19 VACCINE (2 - Moderna series) Overdue since 05/15/2021 04/17/2021 Imm Admin: COVID-19 original vaccine, full dose, monovalent (MODERNA) CHIEF COMPLAINT: RUQ pain HPI: Patient is a 27 year old female who presents for pre surgical testing. She c/o RUQ pain for the last 2-3 years as well as loose bowels. Fatty/greasy meals makes the pain worse. Denies nausea or vomiting. Currently rates the pain 5/10. Describes as a sharp aching pain. After discussion with thesurgeon the patient agrees to surgical intervention. REVIEW OF SYSTEMS: General: Negative for: unintentional weight change, malaise and fever. Neurological: Positive for: headaches and seizures. Negative for: strokes. Respiratory: Positive for: asthma. Negative for: COPD, pneumonia within 6 weeks, URI < 2 weeks and obstructive sleep apnea. Cardiovascular: Negative for: atrial fibrillation, CAD, chest pain, CHF, DVT/PE, hyperlipidemia and hypertension. GI: See HPI. Positive for: abdominal pain and GERD Negative for: nausea and vomiting. : Negative for: dysuria, hematuria and renal failure. 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 Endocrine: Pre diabetes Negative for: diabetes mellitus, hyperthyroidism and hypothyroidism. Hematology: Positive for: anemia. Negative for: factor V Leiden and von Willebrand disease. Oncology: No history of CA metastasis, chemo within 30 days, or radiotherapy within 90 days. No history of oncological symptoms or problems. Psych: Positive for: anxiety and depression. Musculoskeletal: Positive for: back pain. Negative for: joint pain. Skin: Negative for lesions, rash and itching. 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 Prediabetes PTSD (post-traumatic stress disorder) Seizures (HCC) 12/01/2017 psychogenic nonepileptical Tobacco use disorder Trichomoniasis 2018 treated PAST SURGICAL HISTORY Procedure Laterality Date COLONOSCOPY FLX DX W/COLLJ SPEC WHEN PFRMD 07/22/2020 Colonoscopy ESOPHAGOGASTRODUODENOSCOPY TRANSORAL DIAGNOSTIC 07/22/2020 EGD HYSTEROSCOPY DIAGNOSTIC 06/21/2019 for AUB, x2 LYSIS OF ADHESIONS 06/21/2019 diagnostic for chronic pelvic pain, omental adhesions to ant. abd. wall, pelvis normal, op report scanned FAMILY HISTORY Adopted: Yes Problem Relation Age of Onset Colon Cancer Maternal Grandmother Social History Tobacco Use Smoking status: Former Packs/day: 0.25 Years: 10.00 Pack years: 2.50 Types: Cigarettes Quit date: 12/20/2022 Years since quittin.0 Smokeless tobacco: Former Types: Chew Vaping Use Vaping Use: Never used Substance Use Topics Alcohol use: Yes Comment: rare occassion Drug use: No Prior to Admission medications as of 12/22/22 4725 Medication Sig Last Dose Taking ibuprofen (MOTRIN) 600 mg tablet Take 600 mg by mouth every 6 hours as needed. Taking Yes naproxen (NAPROSYN) 250 mg tablet Take 250 mg by mouth as needed. Taking Yes sertraline (ZOLOFT) 100 mg tablet Take 1.5 tablets by mouth once daily. Taking Yes topiramate (TOPAMAX) 50 mg tablet Take 1 tablet by mouth twice daily. Taking Yes tiZANidine HCl (ZANAFLEX) 4 mg capsule Take 4 mg by mouth three times daily as needed. Taking Yes albuterol HFA (VENTOLIN HFA) 90 mcg/actuation inhaler Inhale 2 Puffs as instructed every 4 hours asneeded. Taking Yes ferrous sulfate 325 mg (65 mg iron) tablet Take 1 tablet by mouth twice daily with meals. Taking Yes albuterol (PROVENTIL) 2.5 mg/3 mL (0.083 %) nebulizer solution Use 3 mL via nebulizer every 4 hoursas needed for wheezing/shortness of breath. Taking Yes medroxyPROGESTERone (DEPO-PROVERA) 150 mg/mL injection Inject 1 mL intramuscularly every 12 weeks. Taking Yes folic acid 1 mg tablet Take 1 tablet by mouth once daily. Taking Yes blood sugar diagnostic (BLOOD GLUCOSE TEST) test strip Test blood sugar(s) 2 times daily. Dx: Type 2 DM - Controlled E11.9 Insulin: No Lancets lancets Test blood sugar(s) 4 times daily. Dx: Type 2 DM - Controlled E11.9 Insulin: No No medication comments found. ALLERGIES Allergen Reactions Amoxicillin Shortness of Breath Bee Venom Protein (* Swelling Lidocaine Swelling Mushroom Anaphylaxis Nexplanon [Etonoges* Swelling Adhesive Tape-Silic* Rash Carbocaine [Mepivac* Unknown Norethindrone Ac-Et* Other: See Comments Novacain [Procaine * Unknown Objective PHYSICAL EXAM: General: alert and oriented and healthy appearance. Pertinent negatives noted - not distressed. Skin: normal color, no rash or lesions. HEENT: pupils equal round. Cardiovascular: regular rate and rhythm, normal S1 and S2, no rub, murmurs, or gallop. Pulse characterized as regular. Respiratory: normal breath sounds, no wheezes or crackles. No chest wall deformity or tenderness. Abdomen: bowel sounds present. Extremities: no deformity, no edema or tenderness, no joint swelling or clubbing. Neurological: normal cognition and motor skills. Gait normal. No weakness or sensory deficit. PAIN ASSESSMENT: Pain Pain Level: 2 VITALS: BP 117/79 Pulse 76 Temp 98.4 Resp 16 Ht 5' 6 (1.68m) Wt 206 lb (93.4kg) SpO2 97% BMI33.27 kg/(m^2). Diagnostic tests reviewed for today's visit: Lab Value Units Date High Low HB No results within date range. HCT No results within date range. WBC No results within date range. PLT No results within date range. NA No results within date range. K No results within date range. GLUC No results within date range. BUN No results within date range. CREAT No results within date range. PTSEC No results within date range. INR No results within date range. APTT No results within date range. ALT No results within date range. AST No results within date range. TBILI No results within date range. TSH No results within date range. Lab Value Units Date High Low HCGQT No results within date range. UHCG No results within date range. HCG, BODY* No results within date range. Lab Value Units Date High Low ABORHD No results within date range. ABSCREEN No results within date range. Hemoglobin A1C (%) Date Value 10/08/2020 5.4 05/27/2019 5.0 08/27/2018 5.4 No results found for this or any previous visit (from the past 8760 hour(s)). No results found for this or any previous visit (from the past 62756 hour(s)). Assessment Patient has the following medical conditions which may affect hanane-operative course GERD (gastroesophageal reflux disease) not on medications-no meds helped per patient. Improved with removal of dairy,. Asthma using 1-2 times monthly. Went to ED 08/2022 and 09/2022 for bronchitis/asthma exacerbation . Was prescribed antibiotics . Feeling much better now. Migraine without Aura-topiramate Nicotine use disorder, F17.2 2.5 pack years -quit 12/20/2022 NICOLETTE (iron deficiency anemia) oral iron 12/2021 H&H 13.1/41.3 Psychogenic nonepileptic seizure Not on medications Awan Activity Status Index: METS: Climb a flight of stairs or walk up a hill (5.50 METs) DASI Score: 5.5 Patient denies any chest pain or undue shortness of breath with the above physical activity. ARISCAT Score: Age: <=50 Preoperative SpO2: >=96% Respiratory infection in the last month: No Preoperative anemia: No Surgical incision: upper abdominal Duration of surgery: <2 hrs Emergency procedure: No ARISCAT Score: 15 ANESTHESIA FINDINGS: Intubation History: No history of difficult intubation Significant Anesthesia Considerations: none Airway History: No history of difficult airway I - PHYSICAL EVALUATION AIRWAY Patient intubated: No. Smith present: no DENTAL Dental findings: teeth intact. II - ANESTHESIA PLAN Anesthetic Plan: general Beta Brionna Monitoring Plan Post Procedure Analgesic Plan Prepared for Surgery: CONSULTS: Patient does not require consults for optimization at this time Planned Anesthetic: general The Following Tests/Procedures Have Been Initiated: Orders Placed This Encounter ibuprofen (MOTRIN) 600 mg tablet Sig: Take 600 mg by mouth every 6 hours as needed. naproxen (NAPROSYN) 250 mg tablet Sig: Take 250 mg by mouth as needed. Implantable Devices: None Patient denies blood thinners Assessment/Plan Biliary colic [K80.50] PLAN Planned Procedure: Procedure(s): LAPAROSCOPIC CHOLECYSTECTOMY POSSIBLE OPEN (N/A) The Following Tests/Procedures Have Been Initiated: No labs ordered per surgeon in epic Instructions Given to Patient: Instructions located in the after visit summary. Patient given verbal and written preop instructions and voices comprehension and compliance. SIGNATURE: Rupal Gibson APRN.CNP PATIENT NAME: Per Farmer DATE: December 23, 2022 TIME: 12:10 PM PAGER/CONTACT #: documented in this encounterUniversity Hospitals [facility]12-29-2022 Miscellaneous Notes* Telephone Encounter - Alma Stewart Ma - 11/26/2022 3:27 PM EST Faxed Alma Stewart Ma * Telephone Encounter - Sophie Avalos MD - 11/26/2022 3:04 PM EST Printed. * Telephone Encounter - Chelsea Sales LPN - 11/26/2022 2:26 PM EST [facility] with [facility] called for a new prescription on nebulizer and it needs to read a nebulizer compressor. The dx code for depression is not a code that can be used for this. Asking for a different code that will be acceptable for a nebulizer request. Please fax order to [phone] or send escript. Chelsea Sales LPN documented in this encounterUniversity Hospitals [facility] Center12-27-2022 Miscellaneous Notes* Telephone Encounter - Felipa Bah LPN - 11/24/2022 5:00 PM EST Nebulizer order faxed to number provided. * Telephone Encounter - Sophie Avalos MD - 11/24/2022 1:42 PM EST written * Telephone Encounter - Jean-Claude Newell LPN - 11/24/2022 1:05 PM EST Patient calling her water pipe in her apartment broke and water damaged her nebulizer machine and also needs new rx for few of her medications. Pending rx for items. Patient uses [facility] for her pharmacy. Fax for DME section is [phone] to fax nebulizer rx. Please advise Patient has been identified by name and date of : Patient phones for refill(s): Requested Prescriptions Pending Prescriptions Disp Refills sertraline (ZOLOFT) 100 mg tablet 135 tablet 1 Sig: Take 1.5 tablets by mouth once daily. topiramate (TOPAMAX) 50 mg tablet 180 tablet 1 Sig: Take 1 tablet by mouth twice daily. Date of last office visit in primary care: 10/13/2022, no future appt scheduled Last 2 Encounter Wt Readings: Date: Wt: 11/10/2022 93.9 kg (207 lb) 10/28/2022 93.9 kg (207 lb) Previous labs/tests for medication: Not applicable Please advise. Thank you. Jean-Claude Newell LPN documented in this encounterUniversity Hospitals Beachwood [facility] Center12-13-2022 NoteHNO ID: [id number] Author: Juaquin Walsh MD Service: ? Author Type: Physician Type: Progress Notes Filed: 11/10/2022 11:02 AM Note Text: Patient referred by: Sophie Avalos [address] [facility] [id number] HPI: This is a new patient consult from Dr. Avalos. 27-year-old female here for a 2 to 3-year history of right upper quadrant pain. This is going off and on for the last several years. It is worse after she eats fatty or greasy foods. There is no radiation. She has a history of bloating. She denies any jaundice. She is adopted does not know her family history. She was worked up and found to have an ultrasound and a HIDA scan. She did have symptoms during her HIDA scan. . PAST MEDICAL HISTORY Diagnosis Date Anemia Asthma Deafness Depression Developmental delay alcohol syndrome Hearing impaired person, right Hypoglycemia disorder alcohol syndrome. Prediabetes PTSD (post-traumatic stress disorder) Seizures (HCC) 12/01/2017 Trichomoniasis 2019 treated PAST SURGICAL HISTORY Procedure Laterality Date COLONOSCOPY FLX DX W/COLLJ SPEC WHEN PFRMD 07/22/2020 Colonoscopy ESOPHAGOGASTRODUODENOSCOPY TRANSORAL DIAGNOSTIC 07/22/2020 EGD HYSTEROSCOPY DIAGNOSTIC 06/21/2019 for AUB, LYSIS OF ADHESIONS 06/21/2019 diagnostic for chronic pelvic pain, omental adhesions to ant. abd. wall, pelvis normal, op report scanned FAMILY HISTORY Adopted: Yes Problem Relation Age of Onset Colon Cancer Maternal Grandmother Social History Tobacco Use Smoking status: Every Day Packs/day: 0.25 Types: Cigarettes Smokeless tobacco: Former Types: Chew Vaping Use Vaping Use: Never used Substance Use Topics Alcohol use: Yes Comment: occasional beer Drug use: No Current Outpatient Medications Medication Sig aibbkpijtstwufu-OA-dxgwWJFaash (CAPMIST DM) 60-15-400 mg tab Take 1 tablet by mouth every 6 hours as needed. tiZANidine HCl (ZANAFLEX) 4 mg capsule Take 4 mg by mouth. blood sugar diagnostic (BLOOD GLUCOSE TEST) test strip Test blood sugar(s) 2 times daily. Dx: Type 2 DM - Controlled E11.9 Insulin: No Lancets lancets Test blood sugar(s) 4 times daily. Dx: Type 2 DM - Controlled E11.9 Insulin: No albuterol HFA (VENTOLIN HFA) 90 mcg/actuation inhaler Inhale 2 Puffs as instructed every 4 hours as needed. ferrous sulfate 325 mg (65 mg iron) tablet Take 1 tablet by mouth twice daily with meals. albuterol (PROVENTIL) 2.5 mg/3 mL (0.083 %) nebulizer solution Use 3 mL via nebulizer every 4 hours as needed for wheezing/shortness of breath. medroxyPROGESTERone (DEPO-PROVERA) 150 mg/mL injection Inject 1 mL intramuscularly every 12 weeks. folic acid 1 mg tablet Take 1 tablet by mouth once daily. sertraline (ZOLOFT) 100 mg tablet Take 1.5 tablets by mouth once daily. topiramate (TOPAMAX) 50 mg tablet Take 1 tablet by mouth twice daily. Current Facility-Administered Medications Medication Dose Route Frequency medroxyPROGESTERone 150 mg injection (DEPO-PROVERA) 150 mg INTRAMUSCULAR every 12 weeks ALLERGIES Allergen Reactions Adhesive Tape-Silic* Rash Amoxicillin Shortness of Breath Bee Venom Protein (* Swelling Carbocaine [Mepivac* Unknown Lidocaine Swelling Mushroom Anaphylaxis Nexplanon [Etonoges* Swelling Norethindrone Ac-Et* Other: See Comments Novacain [Procaine * Unknown REVIEW OF SYSTEMS: GENERAL: No weight loss, malaise or fevers GI: Negative for nausea , vomiting, diarrhea, constipation, and signs of jaundice Positive for abdominal pain RUQ PHYSICAL EXAM: BP 114/79 Pulse 88 Ht 5' 7 (1.70m) Wt 207 lb (93.9kg) SpO2 99% BMI 32.41 kg/(m2). GENERAL APPEARANCE: Well appearing, alert, in no acute distress, well-hydrated, well nourished.. ABDOMEN: Abdomen is soft. Mild tenderness in the right upper quadrant. No rebound or guarding. NEURO: Alert, oriented x3, no asterixis, speech clear and articulate, and HOWARD HEART: regular rate and rhythm, without murmur LUNGS: clear to auscultation, without rales or wheeze, good air exchange DATA: Diagnostic tests reviewed for today's visit: Most recent imaging I spent a total of 45 minutes on the date of the service which included preparing to see the patient, [id number] patient care, completing clinical documentation, obtaining and/or reviewing separately obtained history, performing a medically appropriate examination, counseling and educating the patient/family/caregiver, ordering medications, tests, or procedures, and communicating results to the patient/family/caregiver. . Greater than 50% of the direct patient contact time was spent in counseling or coordination of care. Medical Decision Making: Medical Decision Making Level: 1 - N/A ASSESSMENT / PLAN: 1. Biliary colic I reviewed her HIDA scan. This shows a decreased ejection fraction consistent with biliary dyskinesia. A long discussion with her and told her that she be an exce (more content not included)...[facility]12[facility] Instructions* Patient Instructions* Juaquin Walsh MD - 11/10/2022 10:54 AM EST Office will call with date and time for surgery documented in this encounterUniversity Hospitals [facility]12-13-2022 History of Present illness Narrative* Juaquin Walsh MD - 11/10/2022 10:42 AM EST Patient referred by: Sophie Avalos [address] [facility] [address] HPI: This is a new patient consult from Dr. Avalos. 27-year-old female here for a 2 to 3-year historyof right upper quadrant pain. This is going off and on for the last several years. It is worse after she eats fatty or greasy foods. There is no radiation. She has a history of bloating. She denies any jaundice. She is adopted does not know her family history. She was worked up and found to have an ultrasound and a HIDA scan. She did have symptoms during her HIDA scan. . PAST MEDICAL HISTORY Diagnosis Date Anemia Asthma Deafness Depression Developmental delay alcohol syndrome Hearing impaired person, right Hypoglycemia disorder alcohol syndrome. Prediabetes PTSD (post-traumatic stress disorder) Seizures (HCC) 12/01/2017 Trichomoniasis 2019 treated PAST SURGICAL HISTORY Procedure Laterality Date COLONOSCOPY FLX DX W/COLLJ SPEC WHEN PFRMD 07/22/2020 Colonoscopy ESOPHAGOGASTRODUODENOSCOPY TRANSORAL DIAGNOSTIC 07/22/2020 EGD HYSTEROSCOPY DIAGNOSTIC 06/21/2019 for AUB, LYSIS OF ADHESIONS 06/21/2019 diagnostic for chronic pelvic pain, omental adhesions to ant. abd. wall, pelvis normal, op report scanned FAMILY HISTORY Adopted: Yes Problem Relation Age of Onset Colon Cancer Maternal Grandmother Social History Tobacco Use Smoking status: Every Day Packs/day: 0.25 Types: Cigarettes Smokeless tobacco: Former Types: Chew Vaping Use Vaping Use: Never used Substance Use Topics Alcohol use: Yes Comment: occasional beer Drug use: No Current Outpatient Medications Medication Sig tgifgwihnjxmsif-YG-lidhEBGwpcp (CAPMIST DM) 60-15-400 mg tab Take 1 tablet by mouth every 6 hours as needed. tiZANidine HCl (ZANAFLEX) 4 mg capsule Take 4 mg by mouth. blood sugar diagnostic (BLOOD GLUCOSE TEST) test strip Test blood sugar(s) 2 times daily. Dx: Type 2 DM - Controlled E11.9 Insulin: No Lancets lancets Test blood sugar(s) 4 times daily. Dx: Type 2 DM - Controlled E11.9 Insulin: No albuterol HFA (VENTOLIN HFA) 90 mcg/actuation inhaler Inhale 2 Puffs as instructed every 4 hours asneeded. ferrous sulfate 325 mg (65 mg iron) tablet Take 1 tablet by mouth twice daily with meals. albuterol (PROVENTIL) 2.5 mg/3 mL (0.083 %) nebulizer solution Use 3 mL via nebulizer every 4 hoursas needed for wheezing/shortness of breath. medroxyPROGESTERone (DEPO-PROVERA) 150 mg/mL injection Inject 1 mL intramuscularly every 12 weeks. folic acid 1 mg tablet Take 1 tablet by mouth once daily. sertraline (ZOLOFT) 100 mg tablet Take 1.5 tablets by mouth once daily. topiramate (TOPAMAX) 50 mg tablet Take 1 tablet by mouth twice daily. Current Facility-Administered Medications Medication Dose Route Frequency medroxyPROGESTERone 150 mg injection (DEPO-PROVERA) 150 mg INTRAMUSCULAR every 12 weeks ALLERGIES Allergen Reactions Adhesive Tape-Silic* Rash Amoxicillin Shortness of Breath Bee Venom Protein (* Swelling Carbocaine [Mepivac* Unknown Lidocaine Swelling Mushroom Anaphylaxis Nexplanon [Etonoges* Swelling Norethindrone Ac-Et* Other: See Comments Novacain [Procaine * Unknown REVIEW OF SYSTEMS: GENERAL: No weight loss, malaise or fevers GI: Negative for nausea , vomiting, diarrhea, constipation, and signs of jaundice Positive for abdominal pain RUQ PHYSICAL EXAM: BP 114/79 Pulse 88 Ht 5' 7 (1.70m) Wt 207 lb (93.9kg) SpO2 99% BMI 32.41 kg/(m^2). GENERAL APPEARANCE: Well appearing, alert, in no acute distress, well-hydrated, well nourished.. ABDOMEN: Abdomen is soft. Mild tenderness in the right upper quadrant. No rebound or guarding. NEURO: Alert, oriented x3, no asterixis, speech clear and articulate, and HOWARD HEART: regular rate and rhythm, without murmur LUNGS: clear to auscultation, without rales or wheeze, good air exchange DATA: Diagnostic tests reviewed for today's visit: Most recent imaging I spent a total of 45 minutes on the date of the service which included preparing to see the patient, [id number]-vw-lybi patient care, completing clinical documentation, obtaining and/or reviewing separately obtained history, performing a medically appropriate examination, counseling and educating the pat ient/family/caregiver, ordering medications, tests, or procedures, and communicating results to thepatient/family/caregiver. . Greater than 50% of the direct patient contact time was spent in counseling or coordination of care. Medical Decision Making: Medical Decision Making Level: 1 - N/A ASSESSMENT / PLAN: 1. Biliary colic I reviewed her HIDA scan. This shows a decreased ejection fraction consistent with biliary dyskinesia. A long discussion with her and told her that she be an excellent candidate for laparoscopic cholecystectomy. Risk and benefits of the operation including but access to bleeding infection and possibility of postoperative bile leak were discussed with her and she wished to move forward the operation. Juaquin Walsh MD Please Note: This office note has been created using [employer] a speech recognition software program, and may contain errors including punctuation, grammar, spelling, gender, and inappropriate words or phrases that pertain to the sytem. documented in this encounterUniversity Hospitals Beach[facility] Center11-30-2022 History of Present illness Narrative* Sweetie Dorsey APRN.[employer] SUPERINTENDENT - 10/28/2022 1:52 PM EST Subjective Cough Associated symptoms include ear pain (right), headaches and myalgias. Pertinent negatives include no chills and no sore throat. Per Farmer is a 27 year old female who presents with 2 days of cough, diarrhea, bodyaches and headaches. She has had a stuffy nose. She is an [employer] and has had recent exposure to COVID and RSV. She has been taking ibuprofen at home. She had vomiting the first day of the illness but it has resolved. Review of Systems Constitutional: Negative for chills and fever. HENT: Positive for congestion and ear pain (right). Negative for sore throat. Respiratory: Positive for cough. Cardiovascular: Negative. Gastrointestinal: Positive for diarrhea. Negative for vomiting. Musculoskeletal: Positive for myalgias. Neurological: Positive for headaches. BP 110/68 Pulse 94 Temp 36.1 C (97 F) Resp 16 Wt 93.9 kg (207 lb) LMP (LMP Unknown) SpO2 97% BMI 36.09 kg/m PAST MEDICAL HISTORY Diagnosis Date Anemia Asthma Deafness Depression Developmental delay alcohol syndrome Hearing impaired person, right Hypoglycemia disorder alcohol syndrome. Prediabetes PTSD (post-traumatic stress disorder) Seizures (HCC) 12/01/2017 Trichomoniasis 2019 treated PAST SURGICAL HISTORY Procedure Laterality Date COLONOSCOPY FLX DX W/COLLJ SPEC WHEN PFRMD 07/22/2020 Colonoscopy ESOPHAGOGASTRODUODENOSCOPY TRANSORAL DIAGNOSTIC 07/22/2020 EGD HYSTEROSCOPY DIAGNOSTIC 06/21/2019 for AUB, LYSIS OF ADHESIONS 06/21/2019 diagnostic for chronic pelvic pain, omental adhesions to ant. abd. wall, pelvis normal, op report scanned ALLERGIES Adhesive Tape-Silicones, Amoxicillin, Bee Venom Protein (Honey Bee), Carbocaine [Mepivacaine Hcl], Lidocaine, Mushroom, Nexplanon [Etonogestrel], Norethindrone Ac-Eth Estradiol, and Novacain [Procaine Hcl] MEDICATIONS tiZANidine HCl (ZANAFLEX) 4 mg capsule^Take 4 mg by mouth.^Disp: ^Rfl: blood sugar diagnostic (BLOOD GLUCOSE TEST) test strip^Test blood sugar(s) 2 times daily. Dx: Type 2 DM - Controlled E11.9 Insulin: No^Disp: 50 Strip^Rfl: 11 Lancets lancets^Test blood sugar(s) 4 times daily. Dx: Type 2 DM - Controlled E11.9 Insulin: No^Disp: 100 Each^Rfl: 1 albuterol HFA (VENTOLIN HFA) 90 mcg/actuation inhaler^Inhale 2 Puffs as instructed every 4 hours asneeded.^Disp: 6.7 g^Rfl: 1 ferrous sulfate 325 mg (65 mg iron) tablet^Take 1 tablet by mouth twice daily with meals.^Disp: 180tablet^Rfl: 1 albuterol (PROVENTIL) 2.5 mg/3 mL (0.083 %) nebulizer solution^Use 3 mL via nebulizer every 4 hoursas needed for wheezing/shortness of breath.^Disp: 120 mL^Rfl: 3 medroxyPROGESTERone (DEPO-PROVERA) 150 mg/mL injection^Inject 1 mL intramuscularly every 12 weeks.^Disp: 1 mL^Rfl: 4 folic acid 1 mg tablet^Take 1 tablet by mouth once daily.^Disp: 90 tablet^Rfl: 3 sertraline (ZOLOFT) 100 mg tablet^Take 1.5 tablets by mouth once daily.^Disp: 135 tablet^Rfl: 1 xsueqvkvnnlklmb-CG-ljzjIKUyufc (CAPMIST DM) 60-15-400 mg tab^Take 1 tablet by mouth every 6 hours as needed.^Disp: 30 tablet^Rfl: 0 topiramate (TOPAMAX) 50 mg tablet^Take 1 tablet by mouth twice daily.^Disp: 180 tablet^Rfl: 1 FAMILY HISTORY Adopted: Yes Problem Relation Age of Onset Colon Cancer Maternal Grandmother Social History Tobacco Use Smoking status: Every Day Packs/day: 0.25 Types: Cigarettes Smokeless tobacco: Former Types: Chew Vaping Use Vaping Use: Never used Substance Use Topics Alcohol use: Yes Comment: occasional beer Drug use: No Objective Physical Exam Vitals and nursing note reviewed. HENT: Right Ear: Tympanic membrane, ear canal and external ear normal. Left Ear: Tympanic membrane, ear canal and external ear normal. Nose: Nose normal. Mouth/Throat: Mouth: Mucous membranes are moist. Pharynx: Oropharynx is clear. Uvula midline. No oropharyngeal exudate or posterior oropharyngeal erythema. Cardiovascular: Rate and Rhythm: Normal rate and regular rhythm. Heart sounds: Normal heart sounds. Pulmonary: Effort: Pulmonary effort is normal. No respiratory distress. Breath sounds: Normal breath sounds. No wheezing or rales. Musculoskeletal: Cervical back: Neck supple. Lymphadenopathy: Cervical: No cervical adenopathy. Skin: General: Skin is warm and dry. Findings: No erythema or rash. Neurological: Mental Status: She is alert. ASSESSMENT/PLAN: 1. Viral URI with cough - ICD9: 465.9, ICD10: J06.9 - Discussed viral etiology and rationale for treatment. - Symptomatic treatment with prn analgesia - Supportive care with fluids and rest - COVID WITH FLUA+B, ROUTINE - CAPMIST DM 60 MG-15 MG-400 MG TABLET 2. Otalgia of right ear - ICD9: 388.70, ICD10: H92.01 - ear exam is normal today. - Follow-up with your PCP in 3-5 days if symptoms have not improved or sooner if symptoms worsen - Discussed red flags and need for immediate medical evaluation if any occur. - Discussed supportive care treatment with fluids, rest and analgesia. - Discussed expected course of illness Sweetie Dorsey APRN.[employer] SUPER[employer]ENDENT documented in this encounterUniversity Hospitals Beachwood [facility] Center11-30-2022 Instructions* Patient Instructions* Sweetie Dorsey APRN.[employer]PER[employer]END[employer] - 10/28/2022 1:44 PM EST ASSESSMENT/PLAN: 1. Viral URI with cough - ICD9: 465.9, ICD10: J06.9 - Discussed viral etiology and rationale for treatment. - Symptomatic treatment with prn analgesia - Supportive care with fluids and rest - COVID WITH FLUA+B, ROUTINE - CAPMIST DM 60 MG-15 MG-400 MG TABLET 2. Otalgia of right ear - ICD9: 388.70, ICD10: H92.01 - ear exam is normal today. - Follow-up with your PCP in 3-5 days if symptoms have not improved or sooner if symptoms worsen - Discussed red flags and need for immediate medical evaluation if any occur. - Discussed supportive care treatment with fluids, rest and analgesia. - Discussed expected course of illness Sweetie Dorsey APRN.GROVE SUPERINTENDENT Treatment for Viral Upper Respiratory Tract Infections Your body will kill off the virus by itself. Additionally, you can prime your body's immune system.This may help you get better more quickly. Drink lots of fluids - at least one gallon of non-caffeinated liquids per day Make sure you are eating well Get plenty of rest - at least 8 hours of sleep per night for adults and more for children We do not have any medications that kill off these viruses. Antibiotics are used to treat bacterialinfections; however, they are not active against viral infections. There are some things that mighthelp you feel better, though. Vaporizers, humidifiers, hot showers, and hot fluids help open respiratory and sinus passages [place] Nasal [place] may offer relief of nasal and head congestion Dale's Vapor Rub may relieve congestion Tylenol and Advil help control fevers and headaches Salt water gargles help relieve sore throats Chloraceptic spray or throat lozenges may also help relieve sore throat symptoms Occasionally, viral infections turn into something more serious. You should see your doctor or return to the Urgent Care if: You have fevers for longer than five days You have fevers above 102 degrees You are still sick after 10 days You have shortness of breath or wheezing After several days you are getting worse rather than better documented in this encounterUniversity Hospitals [facility]11-15-2022 History of Present illness Narrative* Sophie Avalos MD - 10/13/2022 1:28 PM EST Patient presents with: Pain: Right breast pain HPI: Patient presents today for office visit for concerns with right breast pain that started approx two weeks ago. Pain described as sharp, blunt pain that shoots throughout and behind breast. Started as intermittent pain but now is more consistent. Was using already Rx'd [place], Naproxen and Tizanidine with no relief. Does not self examine. Unsure of any lumps or masses. Denies discharge from nipples. No shortness of breath or cough. No pleuritic pain. Feels it is in the breast tissue itself. Mild caffeine use. She is adopted to so knowledge of breast disease in family. MEDICATIONS: Current Outpatient Medications Medication Sig tiZANidine HCl (ZANAFLEX) 4 mg capsule Take 4 mg by mouth. blood sugar diagnostic (BLOOD GLUCOSE TEST) test strip Test blood sugar(s) 2 times daily. Dx: Type 2 DM - Controlled E11.9 Insulin: No Lancets lancets Test blood sugar(s) 4 times daily. Dx: Type 2 DM - Controlled E11.9 Insulin: No albuterol HFA (VENTOLIN HFA) 90 mcg/actuation inhaler Inhale 2 Puffs as instructed every 4 hours asneeded. ferrous sulfate 325 mg (65 mg iron) tablet Take 1 tablet by mouth twice daily with meals. albuterol (PROVENTIL) 2.5 mg/3 mL (0.083 %) nebulizer solution Use 3 mL via nebulizer every 4 hoursas needed for wheezing/shortness of breath. medroxyPROGESTERone (DEPO-PROVERA) 150 mg/mL injection Inject 1 mL intramuscularly every 12 weeks. folic acid 1 mg tablet Take 1 tablet by mouth once daily. sertraline (ZOLOFT) 100 mg tablet Take 1.5 tablets by mouth once daily. topiramate (TOPAMAX) 50 mg tablet Take 1 tablet by mouth twice daily. benzonatate (TESSALON PERLES) 100 mg capsule Take 1 capsule by mouth three times daily as needed for cough. (Patient not taking: Reported on 10/13/2022) Current Facility-Administered Medications Medication Dose Route Frequency medroxyPROGESTERone 150 mg injection (DEPO-PROVERA) 150 mg INTRAMUSCULAR every 12 weeks ALLERGIES: ALLERGIES Allergen Reactions Adhesive Tape-Silic* Rash Amoxicillin Shortness of Breath Bee Venom Protein (* Swelling Carbocaine [Mepivac* Unknown Lidocaine Swelling Mushroom Anaphylaxis Nexplanon [Etonoges* Swelling Norethindrone Ac-Et* Other: See Comments Novacain [Procaine * Unknown PAST MEDICAL HISTORY Diagnosis Date Anemia Asthma Deafness Depression Developmental delay alcohol syndrome Hearing impaired person, right Hypoglycemia disorder alcohol syndrome. Prediabetes PTSD (post-traumatic stress disorder) Seizures (HCC) 12/01/2017 Trichomoniasis 2019 treated PAST SURGICAL HISTORY Procedure Laterality Date COLONOSCOPY FLX DX W/COLLJ SPEC WHEN PFRMD 07/22/2020 Colonoscopy ESOPHAGOGASTRODUODENOSCOPY TRANSORAL DIAGNOSTIC 07/22/2020 EGD HYSTEROSCOPY DIAGNOSTIC 06/21/2019 for AUB, LYSIS OF ADHESIONS 06/21/2019 diagnostic for chronic pelvic pain, omental adhesions to ant. abd. wall, pelvis normal, op report scanned FAMILY HISTORY Adopted: Yes Problem Relation Age of Onset Colon Cancer Maternal Grandmother Social History Tobacco Use Smoking status: Every Day Packs/day: 0.25 Types: Cigarettes Smokeless tobacco: Former Types: Chew Vaping Use Vaping Use: Never used Substance Use Topics Alcohol use: Yes Comment: occasional beer Drug use: No Reviewed current medications, allergies, past medical history, surgical history, family history andsocial history today. REVIEW OF SYSTEMS All other reviewed and negative other than HPI. VITALS: BP 100/66 Pulse 105 Ht 161.3 cm (5' 3.5) Wt 92.2 kg (203 lb 3.2 oz) LMP (LMP Unknown) SpO2 97% BMI 35.43 kg/m Last 4 Encounter Wt Readings: Date: Wt: 09/25/2022 90.7 kg (200 lb) 09/04/2022 87.6 kg (193 lb 3.2 oz) 07/31/2022 87.3 kg (192 lb 6.4 oz) 07/22/2022 87 kg (191 lb 12.8 oz) PHYSICAL EXAMINATION: General appearance: Well appearing, alert, in no acute distress, well-hydrated, well nourished. Chest wall slightly tender. Lungs: Lungs clear to auscultation. No wheezing, rhonchi, rales Heart: RRR without murmur, gallop, or rubs. No ectopy Abdomen: Normal abdominal exam, Abdomen soft, non-tender. Bowel sounds normal. No masses, organomegaly Breast exam shows no masses or abnormalities noted. No lymphadenopathy during chaperoned exam. ASSESSMENT/PLAN: 1. Breast pain - ICD9: 611.71, ICD10: N64.4 - get mammo. Consider surgical referral if persists. - [facility] - US BREAST LTD RT Sophie Avalos MD documented in this encounterUniversity Hospitals Beachwood [facility] Center11-03-2022 Miscellaneous Notes* Telephone Encounter - Gia Colon APRN.CNP - 10/01/2022 8:45 AM EDT Letter posted to patient's mychart. Gia Colon APRN.CNP * Telephone Encounter - Brooke Lezama Ma - 09/28/2022 9:04 AM EDT Please see pt message. Can you give her a letter and post to [facility]. Pt was seen on 09/25/22. Brooke Lezama Ma documented in this encounterUniversity Hospitals Beachwood [facility] Center10-28-2022 Instructions* Patient Instructions* Gia Colon APRN.CNP - 09/25/2022 12:31 PM EDT Make yourself a rice sock for pain relief. documented in this encounterUniversity Hospitals Beachwood [facility] Center10-28-2022 History of Present illness Narrative* Gia Colon APRN.CNP - 09/25/2022 12:03 PM EDT Chief Complaint Patient presents with: Pain (Shoulder Pain): Right shoulder X 2 months Neck Pain: Right side of neck x 2 months HPI Per Farmer is a 27 year old female who presents here today for Above Complaints.. Today: This past summer was moving heavy boxes and tore a muscle in her right shoulder. Did PT x2 months and the pain completely resolved. 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 2 months ago her shoulder started hurting a little farther up from her injury and into the right side of her neck. Heat with a little bit of relief, but does not have a heating pad-was using a warm cloth. Has used prescription strength ibuprofen, which hasn't been helpful. ED yesterday gave muscle relaxer and naproxen. This aren't doing much for her. NSAIDs have never helped for her during her entire life. Doesn't have time to do PT, but would like to do it if she can find the time. Past medical history, appointments, medications, allergies reviewed. Previous Medical History PAST MEDICAL HISTORY Diagnosis Date Anemia Asthma Deafness Depression Developmental delay alcohol syndrome Hearing impaired person, right Hypoglycemia disorder alcohol syndrome. Prediabetes PTSD (post-traumatic stress disorder) Seizures (HCC) 12/01/2017 Trichomoniasis 2019 treated Previous Surgical History PAST SURGICAL HISTORY Procedure Laterality Date COLONOSCOPY FLX DX W/COLLJ SPEC WHEN PFRMD 07/22/2020 Colonoscopy ESOPHAGOGASTRODUODENOSCOPY TRANSORAL DIAGNOSTIC 07/22/2020 EGD HYSTEROSCOPY DIAGNOSTIC 06/21/2019 for AUB, LYSIS OF ADHESIONS 06/21/2019 diagnostic for chronic pelvic pain, omental adhesions to ant. abd. wall, pelvis normal, op report scanned Family History FAMILY HISTORY Adopted: Yes Problem Relation Age of Onset Colon Cancer Maternal Grandmother Patient Allergies ALLERGIES Allergen Reactions Adhesive Tape-Silic* Rash Amoxicillin Shortness of Breath Bee Venom Protein (* Swelling Carbocaine [Mepivac* Unknown Lidocaine Swelling Mushroom Anaphylaxis Nexplanon [Etonoges* Swelling Norethindrone Ac-Et* Other: See Comments Novacain [Procaine * Unknown Current Medications Current Outpatient Medications on File Prior to Visit Medication Sig benzonatate (TESSALON PERLES) 100 mg capsule Take 1 capsule by mouth three times daily as needed for cough. albuterol HFA (VENTOLIN HFA) 90 mcg/actuation inhaler Inhale 2 Puffs as instructed every 4 hours asneeded. ferrous sulfate 325 mg (65 mg iron) tablet Take 1 tablet by mouth twice daily with meals. albuterol (PROVENTIL) 2.5 mg/3 mL (0.083 %) nebulizer solution Use 3 mL via nebulizer every 4 hoursas needed for wheezing/shortness of breath. ibuprofen (MOTRIN) 200 mg tablet Take 4 tablets by mouth every 6 hours as needed for pain or fever (specify). Rx by CUSTOMER ENGAGEMENT MANAGER pt reported ovary pain medroxyPROGESTERone (DEPO-PROVERA) 150 mg/mL injection Inject 1 mL intramuscularly every 12 weeks. folic acid 1 mg tablet Take 1 tablet by mouth once daily. sertraline (ZOLOFT) 100 mg tablet Take 1.5 tablets by mouth once daily. blood sugar diagnostic (BLOOD GLUCOSE TEST) test strip Test blood sugar(s) 2 times daily. Dx: Type 2 DM - Controlled E11.9 Insulin: No Lancets lancets Test blood sugar(s) 4 times daily. Dx: Type 2 DM - Controlled E11.9 Insulin: No topiramate (TOPAMAX) 50 mg tablet Take 1 tablet by mouth twice daily. Current Facility-Administered Medications on File Prior to Visit Medication medroxyPROGESTERone 150 mg injection (DEPO-PROVERA) Social History Social History Tobacco Use Smoking status: Every Day Packs/day: 0.25 Types: Cigarettes Smokeless tobacco: Former Types: Chew Vaping Use Vaping Use: Never used Substance Use Topics Alcohol use: Yes Comment: occasional beer Drug use: No Review of Symptoms REVIEW OF SYSTEMS See HPI, otherwise negative EXAM: BP 112/70 (BP Site: Left Arm, BP Position: Sitting, BP Cuff Size: Regular Adult) Pulse 84 Resp 16 Wt 90.7 kg (200 lb) LMP (LMP Unknown) SpO2 95% BMI 34.87 kg/m General Appearance: Well appearing, alert, in no acute distress, well-hydrated, well nourished.. Lungs: Lungs clear to auscultation. No wheezing, rhonchi, rales.. Heart: RRR without murmur, gallop, or rubs. No ectopy. Musculoskeletal: generalized tenderness to palpation of right shoulder and right neck, otherwise negative assessment. Health Maintenance List HEPATITIS B(1 of 3 - 3-dose series) Never done PNEUMOCOCCAL(1 - PCV) Never done HPV VACCINE(1 - 2-dose series) Never done SPIROMETRY Never done HEPATITIS C SCREENING Never done HIV SCREENING Never done COVID-19 VACCINE(2 - Moderna series) due on 05/15/2021 INFLUENZA(1) due on 07/30/2022 ANNUAL PCP TEAM CHRONIC DISEASE VISIT due on 09/25/2023 PAP TESTING due on 07/22/2025 DTAP,TDAP,TD(2 - Td or Tdap) due on 11/16/2031 Data reviewed Previous records, office notes, [place] report PDMP website checked and validated. All prescriptions have been APPROPRIATELY filled. No suspiciousactivity was identified. 09/25/2022 by Gia Colon CNP. ASSESSMENT/PLAN: 1. Chronic right shoulder pain - ICD9: 719.41, 338.29, ICD10: M25.511, G89.29 (primary diagnosis) Make a rice sock and continue to utilize moist heat. Supportive care. - KETOROLAC 60 MG/2 ML INTRAMUSCULAR SOLUTION - HYDROCODONE 5 MG-ACETAMINOPHEN 325 MG TABLET 2. Chronic neck pain - ICD9: 723.1, 338.29, ICD10: M54.2, G89.29 Make a rice sock and continue to utilize moist heat. Supportive care. - KETOROLAC 60 MG/2 ML INTRAMUSCULAR SOLUTION - HYDROCODONE 5 MG-ACETAMINOPHEN 325 MG TABLET 3. Prediabetes - ICD9: 790.29, ICD10: R73.03 - [facility] Gia Colon APRN.CNP documented in this encounterUniversity Hospitals Beach[facility] Center10-21-2022 History of Present illness Narrative* Guanako Odell DO - 09/18/2022 9:07 AM EDT UNIVERSAL PROTOCOL / SAFETY CHECKLIST Procedure to be Performed: EMG Sign In: A Moment of CARE was completed. Personnel directly involved with the procedure wore the appropriate PPE (Personal Protective Equipment). Patient/Surrogate Stated/Verified: PATIENT VERIFIED(optional for EMERGENT procedures): Patient name, Date of , Relevant allergies, and The intended procedure Time Out Communication: Intended patient and procedure match the source documents. Correct side/site marked and visible. Sign Out: SIGN OUT (optional for EMERGENT procedures): Post-procedure follow-up management communicated and Plan of Care Visit completed when applicable. COOPER KaplanT. Guanako Odell DO documented in this encounterUniversity Hospitals Beachwood [facility] Center10-08-2022 History of Present illness Narrative* Roosevelt Olivas RT(R) - 09/05/2022 9:30 AM EDT Radiology Service Progress Note PATIENT NAME: Per Farmer DATE OF SERVICE: September 05, 2022 TIME: 9:32 AM PATIENT IDENTITY VERIFICATION COMPLETED USING TWO (2) IDENTIFIERS: Name and Date of confirmedby patient verbally. FALL SCREENING: Has the patient had 2 falls in the last year or 1 fall with injury or currently using an Ambulatory Assistive Device (Walker, Cane, Wheelchair, Crutches, etc.)? No PATIENT GENDER DATA: Female. status: : No status: NO. PATIENT RELEVANT IMPLANT DATA REVIEWED: Not Applicable RADIOLOGY DEPARTMENT: General X-ray: Exam(s) Completed: Chest X-Ray PERIPHERAL IV DATA: Not applicable SIGNED BY: RT Bianca(R) September 05, 2022 9:32 AM documented in this encounterUniversity Hospitals Beachwood [facility] Center09-02-2022 Instructions* Patient Instructions* Ruth Turner APRN.CNP - 07/31/2022 12:29 PM EDT Tips for managing diarrhea without medication: Drink liquids frequently. Increase the amount to two to three liters or quarts daily as tolerated, or try sipping liquids in small amounts throughout the day. Choose diluted, pulpless fruit juices, broths, oral rehydration drinks, or sodas (without caffeine). Chicken broth (without the fat), tea with honey, and sports drinks also are good choices. Instead of drinking liquids with your meals, drink liquids between meals. Try these low-fiber foods: potatoes; rice; noodles; ripe bananas; applesauce; smooth peanut butter;white bread; chicken or turkey without the skin; lean ground beef; fish; yogurt; or cottage cheese. Avoid the following: greasy, fatty, or fried foods; raw vegetables and fruits; strong spices; and whole-grain cereals and breads. Limit food or beverages with caffeine, such as chocolate, coffee, strong tea, and some sodas. If you have cramping with diarrhea, avoid foods and beverages that cause gas, such as beans, cabbage, beer, and carbonated beverages. Diarrheal illness may cause temporary lactose (dairy) intolerance, so avoid these foods if they aremaking diarrhea worse. To ER for worsening symptoms, increased pain, fevers, vomiting, decreased urine output, blood in her urine blood in her stools or dark tarry stools. Rest, increase water intake Motrin or Tylenol as needed for fever or pain. Salt water gargles, chloraseptic spray or lozenges as needed for sore throat. Warm beverages, honey. Nasal saline spray as needed Cool mist humidifier at night * Seek medical care immediately, call 911, go to ER if you have chest pain, difficulty breathing, shortness of breath, inability to swallow. documented in this encounterUniversity Hospitals Beachwood [facility] Center09-02-2022 History of Present illness Narrative* Ruth Turner APRN.GROVE SUPERINTENDENT - 07/31/2022 12:27 PM EDT Images from the original note were not included. Subjective The history is provided by the patient. No speech and language clinician was used. HPI Per Farmer is a 27 year old female who presents today for CC of nasal congestion, body aches, headache and diarrhea. She is also having lower right abdominal discomfort. This started 3 days ago. She was seen yesterday in [place] ED, negative for covid, and received fluids. She denies anyfever, chills, cough, SOB, difficulty breathing, loss of smell or taste, sore throat, nausea or vomiting. She has not used any medications or treatment. BP 122/76 Pulse 108 Temp 36.6 C (97.9 F) Resp 18 Wt 87.3 kg (192 lb 6.4 oz) LMP (LMP Unknown) SpO2 97% BMI 33.55 kg/m Social History Tobacco Use Smoking status: Every Day Packs/day: 0.25 Types: Cigarettes Smokeless tobacco: Former Types: Chew Vaping Use Vaping Use: Never used Substance Use Topics Alcohol use: Yes Comment: occasional beer Drug use: No PAST MEDICAL HISTORY Diagnosis Date Anemia Asthma Deafness Depression Developmental delay alcohol syndrome Hearing impaired person, right Hypoglycemia disorder alcohol syndrome. Prediabetes PTSD (post-traumatic stress disorder) Seizures (HCC) 12/01/2017 Trichomoniasis 2019 treated I have confirmed and edited as necessary, the [facility] Review of Systems Constitutional: Positive for malaise/fatigue. Negative for chills and fever. HENT: Positive for congestion. Negative for ear pain, sinus pain and sore throat. Respiratory: Negative for cough, sputum production, shortness of breath and wheezing. Cardiovascular: Negative for chest pain. Gastrointestinal: Positive for abdominal pain and diarrhea. Negative for nausea and vomiting. Genitourinary: Negative for dysuria, flank pain, frequency, hematuria and urgency. Musculoskeletal: Positive for myalgias. Neurological: Positive for headaches. Objective Physical Exam Vitals and nursing note reviewed. Constitutional: Appearance: Normal appearance. HENT: Head: Normocephalic and atraumatic. Right Ear: Tympanic membrane, ear canal and external ear normal. Left Ear: Tympanic membrane, ear canal and external ear normal. Nose: No mucosal edema, congestion or rhinorrhea. Right Sinus: No maxillary sinus tenderness or frontal sinus tenderness. Left Sinus: No maxillary sinus tenderness or frontal sinus tenderness. Mouth/Throat: Pharynx: Uvula midline. No oropharyngeal exudate or posterior oropharyngeal erythema. Cardiovascular: Rate and Rhythm: Normal rate and regular rhythm. Heart sounds: Normal heart sounds. Pulmonary: Effort: Pulmonary effort is normal. Breath sounds: Normal breath sounds. Abdominal: General: Bowel sounds are normal. There is no abdominal bruit. Palpations: Abdomen is not rigid. There is no mass or pulsatile mass. Tenderness: There is abdominal tenderness (mild) in the right lower quadrant. There is no guarding or rebound. Negative signs include Yeager's sign and McBurney's sign. Lymphadenopathy: Head: Right side of head: No submental, submandibular or tonsillar adenopathy. Left side of head: No submental, submandibular or tonsillar adenopathy. Cervical: No cervical adenopathy. Skin: General: Skin is warm and dry. Neurological: Mental Status: She is alert and oriented to person, place, and time. Psychiatric: Mood and Affect: Affect normal. ASSESSMENT/PLAN: 1. Upper respiratory symptom - ICD9: 786.9, ICD10: R09.89 (primary diagnosis) Covid negative, viral URI Comfort measures discussed see patient instructions 2. Diarrhea, unspecified type - ICD9: 787.91, ICD10: R19.7 Dietary management discussed 3. Right lower quadrant abdominal pain - ICD9: 789.03, ICD10: R10.31 - possible viral, appendicitis - Advised due to abdominal pain should return to ED for further evaluation. Patient states she willmonitor and return if worsens or doesn't go away. Diagnosis and treatment plan were discussed and questions were answered to the patient's satisfaction. Pt acknowledged understanding of concepts and follow up plan. Specific signs and symptoms that would indicate the need for higher level of care were discussed indetail warranting prompt ER evaluation. Ruth Turner APRN.BAKARI documented in this encounterUniversity Hospitals Beach[facility] Center08-24-2022 History of Present illness Narrative* Jakub Martin APRN.CNP - 07/22/2022 12:45 PM EDT Bartenders offered: Patient declines. Per is a 27 year old who presents for an annual gynecologic exam without complaints. Menses: no menses - Depo Provera. Has some spotting right before next injection Contraception: Depo Provera HPV vaccine: unknown, will check vaccines Last Pap: 2020 at thinks was normal but not sure HPV: N/A History of abnormal pap: Yes, LSIL 2018, ASCUS 05/2019 - ECC benign. Surgery lysis of adhesions Last mammogram: never Sexually active: Yes History of STDS: None Patient concerns for STD exposure: No. Time with current partner: 9 months Number of lifetime partners: 3 History of ovarian cyst: Yes, right 3 cm ovarian cyst 01/14/2020 Pain with intercourse: Yes, sharp and positional Postcoital bleeding: No OB History T0 L0 SAB0 IAB0 Ectopic0 Multiple0 Live Births0 Chemical Inspector History LMP: 03/29/2022 (LMP Unknown), Injection Age at Menarche: Age at First : Age at Menopause: Chemical Inspector History Comments: Sexual Activity: Not Currently; No partner data on record; Hx sexual activity Contraception: No contraception data on record PAST MEDICAL HISTORY Diagnosis Date Anemia Asthma Deafness Depression Developmental delay alcohol syndrome Hearing impaired person, right Hypoglycemia disorder alcohol syndrome. PTSD (post-traumatic stress disorder) Seizures (HCC) 12/01/2017 Trichomoniasis 2019 treated PAST SURGICAL HISTORY Procedure Laterality Date COLONOSCOPY FLX DX W/COLLJ SPEC WHEN PFRMD 07/22/2020 Colonoscopy ESOPHAGOGASTRODUODENOSCOPY TRANSORAL DIAGNOSTIC 07/22/2020 EGD HYSTEROSCOPY DIAGNOSTIC 06/21/2019 for AUB, LYSIS OF ADHESIONS 06/21/2019 diagnostic for chronic pelvic pain, omental adhesions to ant. abd. wall, pelvis normal, op report scanned FAMILY HISTORY Adopted: Yes Problem Relation Age of Onset Colon Cancer Maternal Grandmother SOCIAL HISTORY Social History Tobacco Use Smoking status: Every Day Packs/day: 0.25 Types: Cigarettes Smokeless tobacco: Former Types: Chew Vaping Use Vaping Use: Never used Substance Use Topics Alcohol use: Yes Comment: occasional beer Drug use: No REVIEW OF SYSTEMS Abdomen: No abdominal pain, nausea, vomiting, diarrhea, or constipation. No bloating, early satiety, indigestion, or increased flatulence. Bladder: No dysuria, gross hematuria, urinary frequency, urinary urgency, or incontinence. Breast: No breast lumps, nipple d/c, overlying skin changes, redness or skin retraction. Has noticed a little soreness to both breasts lately Allergies and current medication updated:Yes EXAM: BP 110/70 Ht 5' 3.5 (1.61m) Wt 191 lb 12.8 oz (87.0kg) LMP 03/29/2022 BMI 33.44 kg/(m^2). GENERAL: pleasant, female in no apparent distress HEENT: Normocephalic, atraumatic, mucus membranes moist, and no lesions NECK: Supple, full range of motion, no adenopathy, and thyroid normal DERMATOLOGY: Normal, without lesions, non-icteric, and non-hirsute BREAST: soft, non-tender, symmetric, no dominant mass, normal nipple-areolar complex, no lymphadenopathy, and no nipple discharge CHEST: Normal inspiratory effort ABDOMEN: soft, non-tender, and no masses PELVIC: external genitalia normal, normal Bartholin's glands, urethra, [place]'s glands, no vulvar lesions, no cervical lesions, good vaginal support, physiologic discharge present, normal appearing perineal body and perianal region. Blood in vaginal vault. BIMANUAL: uterus normal size, shape and consistency, no adnexal masses, and non-tender RECTOVAGINAL: deferred. NEURO: alert and oriented x3,exam grossly non-focal EXTREMITIES: normal ASSESSMENT/PLAN: 1) Health maintenance: Pap done with reflex HPV. Nutrition, exercise and routine health maintenance exams reviewed. Smoking cessation: Benefits of smoking cessation reviewed. Patient encouraged to avoid smoking. HPV vaccine: unknown, pt will check 2) Contraception: Depo Provera. Contraceptive options reviewed and information provided. 3) STD screening: Accepted STD check for Gonorrhea and Chlamydia. 4) Follow up one year or sooner as needed Jakub Martin APRN.BAKARI documented in this encounterUniversity Hospitals Beach[facility]08-19-2022 Miscellaneous Notes* Telephone Encounter - Latonya Llamas APRN.CNP - 07/17/2022 12:34 PM EDT Consult for general surgery placed - On HIDA scan EF low - Latonya Llamas APRN.GROVE SUPERINTENDENT documented in this encounterUniversity Hospitals Beachwood [facility] Center08-18-2022 History of Present illness Narrative* Teresa Tucker, RT(R) - 07/16/2022 10:00 AM EDT RADIOLOGY SERVICE PROGRESS NOTE SERVICE DATE: 07/16/2022 SERVICE TIME: 10:05 AM PATIENT IDENTITY VERIFICATION COMPLETED USING TWO (2) STANDARD IDENTIFIERS: Name and Date of confirmed by patient verbally FALL SCREENING: Has the patient had 2 falls in the last year or 1 fall with injury or currently using an Ambulatory Assistive Device (Walker, Cane, Wheelchair, Crutches, etc.)? No PATIENT GENDER DATA: .female : No status: No ALLERGIES: Reviewed and unchanged MEDICATIONS REVIEWED: No PATIENT RELEVANT IMPLANT DATA REVIEWED: Not Applicable CREATININE: Creatinine Date Value Ref Range Status 01/20/2022 0.65 0.58 - 0.96 mg/dL Final 12/16/2021 0.64 0.58 - 0.96 mg/dL Final 04/15/2020 0.63 0.58 - 0.96 mg/dL Final eGFR-All Other Races Date Value Ref Range Status 01/20/2022 >60 . Final Comment: eGFR (Estimated GFR) Units of measure: mL/min/1.73 meters squared eGFR is derived from the reexpressed MDRD Study equation using the following parameters: serum creatinine, age, gender and race. The creatinine assay has been calibrated to be traceable to IDMS. An eGFR <60 mL/min/1.73m2 for >3 months is consistent with chronic kidney disease. Refer to KDOQI guidelines for clinical interpretation. In patients with unstable renal function, e.g. those with acute kidney injury, the eGFR may not accurately reflect actual GFR. Note: On 01/24/2022, the eGFR calculation will be updated to the NKF-ASN Task Force recommended 2020 CKD-EPI creatinine equation which does not include a race variable. For more information or to access a 2020 CKD-EPI calculator, visit the National Kid[employer] website at kidney.org/professionals/kdoqi/gfr_calculator. eGFR- Date Value Ref Range Status 01/20/2022 >60 Final P.O.C.T. RESULTS: N/A July 16, [address] PERFORMED: No IV SITE: Ambulatory: A peripheral IV was started in the Left antecubital site with a Angio cath: 24gauge. POST EXAM PIV STATUS: Discontinued PROCEDURE TYPE: NM INJECT: Whole Body Bone Scan. 5.15 mCi Tc99m CHOLETEC given IV at 10:18. No gallbladder in first hour; approved to start EF imaging at 1 hour 30 min post inj per Dr. Ernie Dalye. 8 ounces of Ensure Plus given PO at 11:55 for EF. ADMINISTRATION TIME: PATIENT DISCHARGED TO: Ambulatory patient, left [place] department area. A Diagnostic radioactive procedure has taken place, with no further precautions necessary other than routine body substance precautions. More information regarding radiation safety can be found usingthis link: [email or web address] SIGNATURE: KEVIN Verduzco PATIENT NAME: Per Farmer DATE: July 16, 2022 TIME: 10:32 AM PAGER/CONTACT #: documented in this encounterUniversity Hospitals Beachwood [facility] Center08-18-2022 History of Present illness Narrative* Brandi Oconnell APRN.GROVE SUPERINTENDENT - 07/16/2022 8:00 AM EDT Images from the original note were not included. [facility] [place] New Patient visit New Patient Consultation 2022 HPI: Ms. Farmer presents today secondary to issues of numbness and tingling. She states that about one year ago she began to have tingling and numbness in her hands and R arm as well as her feet up to her knees. Then states her entire legs will go completely numb where she cant move or feel them. When asked if she has weakness she shakes her head then states sometimes her legs just give out.Denies weakness in the arm. Numbness located in all fingers. Radiates to the elbow. States it causes sharp shooting pain in herelbow. Later states she has pain in her neck when this happens. Sx located only to lateral aspect of R arm. Numbness in the leg is the entire leg. Both the anterior and posterior aspect. States she cannot move them at all for roughly five to ten minutes up to a half hour. She denies ever going to the ED when this happens. Happens twice per week. States she has lost control of bowel or bladder but now when leg numbness occurs. Denies numbness to the groin. States she knows when she has to urinate but doesn't always know when she has to have a bowel movement. States this has been present since age 20. Has been seeing GI. Having a HIDA scan done today. No known triggers for leg numbness. Denies facial numbness, vision changes or speech changes with exception of needing new prescription. Hx of prediabetes. Denies thyroid history. States she has an iron deficiency. States she also has low potassium. Currently taking Topamax for migraines. Also with history of PNES. Unsure when she started Topamax but states it has been years. No correlation with when numbness started. Alcohol: Socially Tobacco: Current smoker; started at age 15 Drug: Denies PAST MEDICAL HISTORY Diagnosis Date Anemia Asthma Deafness Depression Developmental delay alcohol syndrome Hearing impaired person, right Hypoglycemia disorder alcohol syndrome. PTSD (post-traumatic stress disorder) Seizures (HCC) 12/01/2017 Trichomoniasis 2019 treated PAST SURGICAL HISTORY Procedure Laterality Date COLONOSCOPY FLX DX W/COLLJ SPEC WHEN PFRMD 07/22/2020 Colonoscopy ESOPHAGOGASTRODUODENOSCOPY TRANSORAL DIAGNOSTIC 07/22/2020 EGD HYSTEROSCOPY DIAGNOSTIC 06/21/2019 for AUB, LYSIS OF ADHESIONS 06/21/2019 diagnostic for chronic pelvic pain, omental adhesions to ant. abd. wall, pelvis normal, op report scanned Current Outpatient Medications on File Prior to Visit Medication Sig clindamycin (CLEOCIN) 150 mg capsule Take by mouth. pantoprazole DR (PROTONIX) 40 mg tablet Take 1 tablet by mouth once daily. albuterol HFA (VENTOLIN HFA) 90 mcg/actuation inhaler Inhale 2 Puffs as instructed every 4 hours asneeded. folic acid 1 mg tablet Take 1 tablet by mouth once daily. ferrous sulfate 325 mg (65 mg iron) tablet Take 1 tablet by mouth twice daily with meals. sertraline (ZOLOFT) 100 mg tablet Take 1.5 tablets by mouth once daily. topiramate (TOPAMAX) 50 mg tablet Take 1 tablet by mouth twice daily. medroxyPROGESTERone (DEPO-PROVERA) 150 mg/mL injection Inject 1 mL intramuscularly every 12 weeks. blood sugar diagnostic (BLOOD GLUCOSE TEST) test strip Test blood sugar(s) 2 times daily. Dx: Type 2 DM - Controlled E11.9 Insulin: No albuterol (PROVENTIL) 2.5 mg/3 mL (0.083 %) nebulizer solution Use 3 mL via nebulizer every 4 hoursas needed for wheezing/shortness of breath. ibuprofen (MOTRIN IB) 200 mg tablet Take 800 mg by mouth every 6 hours as needed. Rx by CUSTOMER ENGAGEMENT MANAGER pt reported ovary pain Lancets lancets Test blood sugar(s) 4 times daily. Dx: Type 2 DM - Controlled E11.9 Insulin: No Current Facility-Administered Medications on File Prior to Visit Medication medroxyPROGESTERone 150 mg injection (DEPO-PROVERA) Social History Tobacco Use Smoking status: Every Day Packs/day: 0.25 Types: Cigarettes Smokeless tobacco: Former Types: Chew Vaping Use Vaping Use: Never used Substance Use Topics Alcohol use: Yes Comment: occasional beer Drug use: No ALLERGIES Allergen Reactions Adhesive Tape-Silic* Rash Amoxicillin Shortness of Breath Bee Venom Protein (* Swelling Carbocaine [Mepivac* Unknown Lidocaine Swelling Mushroom Anaphylaxis Nexplanon [Etonoges* Swelling Norethindrone Ac-Et* Other: See Comments Novacain [Procaine * Unknown Review of Systems: Constitutional: denies fever, weight loss, loss of appetite ENT: denies loss of hearing, vertigo Vision: denies blurring vison, double vision/diplopia Dermatologic: denies rash Cardiopulmonary: denies + chest pain, palpitations Respiratory: denies shortness of breath GI: denies recent + nausea, vomiting, diarrhea, constipation : denies + incontinence Psych: denies depression, + anxiety Sleep: + issues with sleeping Heme: + easy bruising/bleeding Musculoskeletal: denies + weakness, joint ache/pain Back/spine: denies + low back or + cervical pains Neuro: denies + tremors (intermittent in hands), loss of feeling, + dizziness, seizure, blackout, paresthesia, facial paresthesia, facial weakness, difficulty in speech, slurring of words, dysarthria, dysphagia, + headache Physical Exam: 07/16/22 0806 BP: 106/72 Pulse: 70 Resp: 16 Temp: 36.3 C (97.3 F) SpO2: 98% Weight: 84.8 kg (187 lb) Patient is alert and in no distress. Dress is appropriate. Mood is appropriate Breathing appears regular and unstressed Neurologic examination: Cognitively intact. No deficits. No formal MMSE performed. CN: Pupils equal and reactive to light, extraocular movements intact with no nystagmus, face is symmetric with no facial droop, hearing decreased bilaterally R>L, symmetric evaluation of the soft palate, tongue is midline with no deviation, shoulder shrug is symmetric. Motor exam shows 5/5 strength symmetric through the upper and lower extremities in all groups tested. Sensory intact to light touch in all extremities. Vibratory sensation is intact and symmetric all extremities. Decreased pinprick to mid gordon bilaterally up to level of knee; posterior to RLE and anterior to LLE. Deep tendon reflexes are symmetric at the biceps, brachioradialis, triceps, patella, and achilles bilaterally. Coordination: No dysmetria on finger to nose. No tremors noted. No drift seen. Gait normal in stance and pattern. Able to walk on heels and toes, able to tandem. Positive Tinel's over R elbow as well as L elbow and wrist. Labs/studies: R Elbow R 06/09/22: IMPRESSION: Radiographic findings present which can be seen in association with olecranon bursitis. EMG 05/02/2020: Extensive electrodiagnostic examination of the right upper extremity discloses no definite abnormalities. Specifically, screening studies of the right median, ulnar and radial nerves show no evidence of focal neuropathy in those distributions. There is no evidence of a right cervical (C5-T1) motor radiculopathy. A sensory radiculopathy cannot be excluded by a study of this nature. Component Latest Ref Rng & Units 01/15/2022 01/20/2022 01/20/2022 04/09/2022 10:37 AM 10:37 AM WBC 3.70 - 11.00 k/uL 8.37 RBC 3.90 - 5.20 m/uL 4.90 Hemoglobin 11.5 - 15.5 g/dL 13.1 Hematocrit 36.0 - 46.0 % 41.3 MCV 80.0 - 100.0 fL 84.3 MCH 26.0 - 34.0 pG 26.7 MCHC 30.5 - 36.0 g/dL 31.7 RDW-CV 11.5 - 15.0 % 13.7 Platelet Count 150 - 400 k/uL 333 MPV 9.0 - 12.7 fL 10.1 Neut% % 63.2 Abs Neut (ANC) 1.45 - 7.50 k/uL 5.28 Lymph% % 27.2 Abs Lymph 1.00 - 4.00 k/uL 2.28 [place]% % 6.7 Abs [place] <0.87 k/uL 0.56 Eosin% % 1.9 Abs Eosin <0.46 k/uL 0.16 Baso% % 1.0 Abs Baso <0.11 k/uL 0.08 Nucleated Reds 0 /100 WBC 0.0 Absolute nRBC <0.01 k/uL <0.01 Diff Type Auto Diff Protein, Total 6.3 - 8.0 g/dL 7.5 7.0 Albumin 3.9 - 4.9 g/dL 4.4 Calcium 8.5 - 10.2 mg/dL 9.4 Bilirubin, Total 0.2 - 1.3 mg/dL 0.2 Alkaline Phosphatase 34 - 123 U/L 65 AST 13 - 35 U/L 11 (L) Glucose 74 - 99 mg/dL 85 BUN 7 - 21 mg/dL 9 Creatinine 0.58 - 0.96 mg/dL 0.65 Sodium 136 - 144 mmol/L 138 Potassium 3.7 - 5.1 mmol/L 4.2 Chloride 97 - 105 mmol/L 106 (H) CO2 22 - 30 mmol/L 22 Anion Gap 9 - 18 mmol/L 10 ALT 7 - 38 U/L 11 eGFR- >60 eGFR-All Other Races . >60 Albumin 3.37 - 4.23 gm/dL 4.00 Alpha 1 Globulin 0.18 - 0.31 gm/dL 0.26 Alpha 2 Globulin 0.52 - 0.97 gm/dL 0.78 Beta Globulin 0.84 - 1.36 gm/dL 1.01 Gamma Globulin 0.70 - 1.44 gm/dL 0.95 Interpretation (Prot Electro) SEE COMMENT M-Protein Location N/A M-Protein Concentration 0.00 gm/dL 0.00 SPE Staff Review Reviewed by Carolina Up MD ([id number]) COVID 19 Source [employer] UPPER RESPIRATORY TRACT SWAB Influenza A PCR Negative for Influenza A by RT PCR Influenza B PCR Negative for Influenza B by RT PCR COVID 19 Result ROPE [employer]ER Negative for COVID19 (SARS CoV2) by RT-PCR or equivalent method. Negative for COVID19 (SARS CoV2) by RT-PCR or equivalent method. Topiramate 5.0 - 20.0 ug/mL <1.5 (L) Vitamin B12 232 - 1,245 pg/mL 366 Folate >4.7 ng/mL 2.9 (L) TSH 0.270 - 4.200 mIU/L 4.310 (H) 1.940 Free T4 0.9 - 1.7 ng/dL 1.1 T3 79 - 165 ng/dL 125 Assessment/Plan: R29.898 Leg weakness, bilateral (primary encounter diagnosis) R20.2 Paresthesia R20.0 Right arm numbness R20.0 Lower extremity numbness Comment: Pt presenting today for numbness and tingling to hands and legs. Symptoms in UE most notable in R hand with radiation up the lateral aspect of the arm to the elbow. In LE, symptoms are located throughout the entire leg (both anterior and posterior) and are associated with sudden weakness. Episodes of weakness occur roughly twice per week and can last up to 30 minutes. No other associatedneurological changes, loss of b/b, numbness to groin. Notable hx includes PNES, alcohol syndrome, PTSD, asthma, anemia. She is uncertain of family hx as she is adopted. Exam essentially unremarkable with exception of changes in pinprick sensation as noted above; not necessarily correlating with exact dermatome. No focal weakness noted. On review of chart it appears she reported similar sx in RUE in 2019 at which time EMG/NCV of upper extremity was completed and unremarkable. Recent XR of R elbow revealed olecranon bursitis. Given distribution of symptoms in RUE as well as positive Tinel's over R elbow, sx suggestive of ulnar neuropathy. Also possible concern for median neuropathy bilaterally as well. Will complete repeat EMG/NCV of upper extremities for further evaluation. In regards to symptoms in lower extremities, concern for possible lumbar etiology. Will also order EMG/NCV ofBLE as well as XR lumbar spine. Lastly, given generalized location of symptoms will obtain additional blood work to evaluate for underlying cause of paresthesias including vitamin deficiency or autoimmune disorder. She will follow up after testing is complete for further determination of POC. May consider consult to orthopedics, spine medicine consult, or possible PT pending results. Office Visit on 07/16/22 XR LUMBAR GENERAL 3V AP/LAT/L5-S1 VITAMIN B12 BLOOD VITAMIN B6/PYRIDOXIN FOLATE SERUM KEHINDE BY IFA WITH REFLEX CONSULT TO NEUROLOGY EMG(NEURO/NI) EMG(NEURO/NI) Brandi Oconnell APRN.GROVE SUPERINTENDENT I spent a total of 55 minutes on the date of the service which included preparing to see the patient, [id number] patient care, completing clinical documentation, obtaining and/or reviewing separately obtained history, performing a medically appropriate examination, counseling and educating the pat ient/family/caregiver, and ordering medications, tests, or procedures. documented in this encounterUniversity Hospitals [facility]08-08-2022 History of Present illness Narrative* Silvia Levi RDMS - 07/06/2022 2:30 PM EDT Radiology Service Progress Note PATIENT NAME: Per Farmer DATE OF SERVICE: July 06, 2022 TIME: 2:38 PM PATIENT IDENTITY VERIFICATION COMPLETED USING TWO (2) IDENTIFIERS: Name and Date of confirmedby patient verbally. FALL SCREENING: Has the patient had 2 falls in the last year or 1 fall with injury or currently using an Ambulatory Assistive Device (Walker, Cane, Wheelchair, Crutches, etc.)? No PATIENT GENDER DATA: Female. status: : No status: N/A PATIENT RELEVANT IMPLANT DATA REVIEWED: Not Applicable RADIOLOGY DEPARTMENT: Ultrasound PERIPHERAL IV DATA: Not applicable SIGNED BY: Silvia Levi RDMS RVT July 06, 2022 2:38 PM documented in this encounterUniversity Hospitals Beach[facility] Center08-08-2022 Miscellaneous Notes* Telephone Encounter - Jacob Montero Ma - 07/06/2022 11:45 AM EDT Spoke to [place] police department, gave information, they are sending someone for a welfare check. Jacob Montero CMA [facility] * Telephone Encounter - Yisel Ewing PA-C - 07/06/2022 11:28 AM EDT Called Per to discuss her MyChart message sent to Latonya Llamas CNP who I am covering for today. Notes ongoing vomiting and abdominal pain. Thinks it is from her Pantoprazole. Also notes bad mood swings and suicidal ideations. She did stop the Pantoprazole on Wednesday. Discussed in detail with the patient that it is SO IMPORTANT for her to be evaluated in the ER for this. She adamantly declines. I offered to call 911 which she also declined. Patient is very evasive on the phone and not answering questions. Very soft spoken. I am concerned for the patients wellbeing. Discussed with office staff who will call 911 for a Wellness check. documented in this encounterUniversity Hospitals Beachwood [facility] Center07-12-2022 Miscellaneous Notes* Telephone Encounter - Sophie Avalos MD - 06/09/2022 1:21 PM EDT They questioned bursitis of the elbow, although I can say that clinically it looked like that when I saw it. We could try antiflammatories first. Hold motrin. Try mobic with food for one week. Call if symptoms worsen at all or if not better in one to two weeks documented in this encounterUniversity Hospitals Beachwood [facility] Center07-11-2022 History of Present illness Narrative* Roosevelt Olivas, RT(R) - 06/08/2022 3:30 PM EDT Radiology Service Progress Note PATIENT NAME: Per Farmer DATE OF SERVICE: June 08, 2022 TIME: 3:30 PM PATIENT IDENTITY VERIFICATION COMPLETED USING TWO (2) IDENTIFIERS: Name and Date of confirmedby patient verbally. FALL SCREENING: Has the patient had 2 falls in the last year or 1 fall with injury or currently using an Ambulatory Assistive Device (Walker, Cane, Wheelchair, Crutches, etc.)? No PATIENT GENDER DATA: Female. status: : No status: NO. PATIENT RELEVANT IMPLANT DATA REVIEWED: Not Applicable RADIOLOGY DEPARTMENT: General X-ray: Exam(s) Completed: Upper Extremity X- Ray(s): Elbow, right PERIPHERAL IV DATA: Not applicable SIGNED BY: RT Bianca(R) June 08, 2022 3:30 PM documented in this encounterUniversity Hospitals Beachwood [facility] Center07-11-2022 History of Present illness Narrative* Sophie Avalos MD - 06/08/2022 3:02 PM EDT Patient presents with: Pain (Elbow Pain): RIGHT elbow x 2 months HPI: Patient presents today for office visit for follow up. Complains of right elbow pain for months. Even has been for years. No trauma. No redness or warmth. Can shoot up and down the arm. Gets some numbness and tingling. No current redness or warmth. Using tylenol and heat. Has noted some swelling to her upper lid Feels it is irritated when moving eye to the lateral side. No vision issues. No redness. No drainage or crusting. Worried about dropping things etc. Complains of numbness in hands and feet. Saw her for same in 2019 and had negative emg. Has labs from [facility] recently for same as well. States she drops things and hands and feet get intermittently numb. MEDICATIONS: Current Outpatient Medications Medication Sig folic acid 1 mg tablet Take 1 tablet by mouth once daily. ferrous sulfate 325 mg (65 mg iron) tablet Take 1 tablet by mouth twice daily with meals. sertraline (ZOLOFT) 100 mg tablet Take 1.5 tablets by mouth once daily. topiramate (TOPAMAX) 50 mg tablet Take 1 tablet by mouth twice daily. medroxyPROGESTERone (DEPO-PROVERA) 150 mg/mL injection Inject 1 mL intramuscularly every 12 weeks. blood sugar diagnostic (BLOOD GLUCOSE TEST) test strip Test blood sugar(s) 2 times daily. Dx: Type 2 DM - Controlled E11.9 Insulin: No albuterol (PROVENTIL) 2.5 mg/3 mL (0.083 %) nebulizer solution Use 3 mL via nebulizer every 4 hoursas needed for wheezing/shortness of breath. ibuprofen (MOTRIN IB) 200 mg tablet Take 800 mg by mouth every 6 hours as needed. Rx by CUSTOMER ENGAGEMENT MANAGER pt reported ovary pain albuterol HFA (VENTOLIN HFA) 90 mcg/actuation inhaler Inhale 2 Puffs as instructed every 4 hours asneeded. Lancets lancets Test blood sugar(s) 4 times daily. Dx: Type 2 DM - Controlled E11.9 Insulin: No Current Facility-Administered Medications Medication Dose Route Frequency medroxyPROGESTERone 150 mg injection (DEPO-PROVERA) 150 mg INTRAMUSCULAR every 12 weeks ALLERGIES: ALLERGIES Allergen Reactions Amoxicillin Shortness of Breath Carbocaine [Mepivac* Unknown Lidocaine Swelling Mushroom Anaphylaxis Nexplanon [Etonoges* Swelling Novacain [Procaine * Unknown PAST MEDICAL HISTORY Diagnosis Date Anemia Asthma Deafness Depression Developmental delay alcohol syndrome Hearing impaired person, right Hypoglycemia disorder alcohol syndrome. PTSD (post-traumatic stress disorder) Seizures (HCC) 12/01/2017 Trichomoniasis 2019 treated PAST SURGICAL HISTORY Procedure Laterality Date COLONOSCOPY FLX DX W/COLLJ SPEC WHEN PFRMD 07/22/2020 Colonoscopy ESOPHAGOGASTRODUODENOSCOPY TRANSORAL DIAGNOSTIC 07/22/2020 EGD HYSTEROSCOPY DIAGNOSTIC 06/21/2019 for AUB, LYSIS OF ADHESIONS 06/21/2019 diagnostic for chronic pelvic pain, omental adhesions to ant. abd. wall, pelvis normal, op report scanned FAMILY HISTORY Adopted: Yes Problem Relation Age of Onset Colon Cancer Maternal Grandmother Social History Tobacco Use Smoking status: Current Every Day Smoker Packs/day: 0.25 Types: Cigarettes Smokeless tobacco: Former User Types: Chew Vaping Use Vaping Use: Never used Substance Use Topics Alcohol use: Yes Comment: occasional beer Drug use: No Reviewed current medications, allergies, past medical history, surgical history, family history andsocial history today. REVIEW OF SYSTEMS All other reviewed and negative other than HPI. VITALS: BP 100/68 Pulse 90 Temp 36.9 C (98.4 F) (Left Tympanic) Resp 16 Wt 87.5 kg (193 lb) LMP 03/29/2022 (LMP Unknown) SpO2 98% BMI 30.23 kg/m Last 4 Encounter Wt Readings: Date: Wt: 06/08/2022 87.5 kg (193 lb) 05/14/2022 87.5 kg (192 lb 12.8 oz) 04/30/2022 87.5 kg (193 lb) 04/24/2022 85 kg (187 lb 6.4 oz) PHYSICAL EXAMINATION: General appearance: Well appearing, alert, in no acute distress, well-hydrated, well nourished. Skin: Skin color, texture, turgor normal, no suspicious rashes or lesions Head: Normocephalic, no masses, lesions, tenderness or abnormalities Eyes: lid shows slight redness near angle of the conjunctiva on both lids. No drainage. Perrla. Eomi. Extremities: No deformities, edema, skin discoloration, clubbing or cyanosis. Good capillary refill. , negative tinel's over ulnar. Redness or Musculoskeletal: No joint swelling, deformity, or tenderness Peripheral pulses: Normal Neuro: Negative. No new changes. Neg phalen's/ ASSESSMENT/PLAN: 1. Eyelid disorder - ICD9: 374.9, ICD10: H02.9 (primary diagnosis) - see her eye doc. Discussed risks and benefits of new medication with the patient. Advised them tocall if any side effects or questions. - SULFACETAMIDE SODIUM 10 % EYE DROPS 2. Right elbow pain - ICD9: 719.42, ICD10: M25.521 - consider ortho depending on results. - XR ELBOW GENERAL 2V AP/LAT RIGHT 3. Paresthesia - ICD9: 782.0, ICD10: R20.2 - neg work up thus far. See neuro Sophie Avalos documented in this encounterUniversity Hospitals Beachwood [facility] Center07-07-2022 History of Present illness Narrative* Jarrett Hodgson, PT - 06/04/2022 3:11 PM EDT Episode Visit Count: 6 Therapist That Will Oversee The Plan Of Care: Jarrett Hodgson Start of Care Date: 04/23/22 Onset Date: 04/09/22 Plan of Care Certification Date: 05/26/22 Next Certification Due Date: 06/30/22 Patient Identified by Name and Date of : Yes REHABILITATION AND SPORTS THERAPY PHYSICAL THERAPY TREATMENT NOTE ASSESSMENT: Per Farmer tolerated the session with no issues. She demonstrated improvements in shoulder AROM. The patient will continue to benefit from ongoing skilled physical therapy to progress toward set goals. PLAN FOR NEXT VISIT: Continue to progress R shoulder RTC strength as tolerated SUBJECTIVE: Patient Reason for Visit: Pt is still having some pain. 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 Functional Limitations: lifting Pain: Pain Pain Level: 4 Pain Location: Shoulder - Right Post Treatment Pain Post Treatment Pain Location: Shoulder - Right OBJECTIVE MEASURES WITH LEVEL OF FUNCTION: UE AROM R Shoulder Flex: 175 Degrees TREATMENT: Therapeutic Exercise: 1: Standing shoulder ER GTB 3 x 12 reps (Pt reports some discomfort with this; soreness) 2: Standing shoulder IR GTB 2 x 15 reps 3: Standing shoulder abd OTB x 15 4: Standing shoulder abd GTB x 15 5: Standing shoulder abd BTB 2 x 10 (Vended BTB for home use) Skilled Intervention: Patient was educated in proper exercise technique and purpose for exercises. Correct performance of therapeutic exercises was facilitated with verbal and visual cuing. Manual Therapy: 1: STM over upper traps, sclenes and cervical paraspinals with pt in supine Skilled Intervention: Manual skills to improve joint mobility, ROM, and decrease pain. Utilized anatomy knowledge of the therapist, and assessment of patient's response to intervention. Billing Therapeutic Exercise Treatment Minutes: 28 Manual TherapyTreatment Minutes: 11 Total Treatment Time Minutes (timed/untimed): 39 Jarrett Hodgson PT documented in this encounterUniversity Hospitals [facility]06-28-[facility]22 History of Present illness Narrative* Jarrett Hodgson PT - 05/26/2022 1:42 PM EDT Episode Visit Count: 5 Therapist That Will Oversee The Plan Of Care: Jarrett Hodgson Start of Care Date: 04/23/22 Onset Date: 04/09/22 Plan of Care Certification Date: 05/26/22 Next Certification Due Date: 06/30/22 Patient Identified by Name and Date of : Yes REHABILITATION AND SPORTS THERAPY PHYSICAL THERAPY PROGRESS REPORT PLAN OF CARE UPDATE: Assessment: Per Farmer demonstrates improvements in pain frequency, pain intensity, R RTC strength, and level of independence with the HEP. She hasprogressed toward goals. Patient continues topresent with impairments in range of motion, strength and posture that interfere with lifting . Current prognosis is Good due to: current objective clinical presentation . Pt would continue to benefit from progressing R RTC Muscles to protect the shoulder from further injury and return to work. [place] benefit from continued skilled therapy services to meet the updated goals for this plan of care as noted below. Goals updated 05/26/2022 Goals for Episode of Care: created on 04/23/22 through 07/16/22 Pt will be able to perform AROM that is WNL with the R shoulder to return to reaching objects overhead - Progressing, will continue Pt will demo 4+/5 RUE strength for return to PLOF in 12 weeks or less - Progressing, will continue Pt will report overall improvement in symptoms by 80% in 10 weeks or less for improved QOL - Progressing, will continue Hubert[place] in home exercise program. Planned Interventions, Frequency, and Duration: 1x/week, 4 weeks Total Number of Visits Planned: 4 Patient to be seen for Neuromuscular re-education (73793);Therapeutic exercise (34908);Manual therapy ([id number]);Self-longterm management ([id number]);Patient/Family/Caregiver Education PLAN FOR NEXT VISIT: Progress RTC strengthening as tolerated. Possible STM stretching of the Lats SUBJECTIVE: Patient Reason for Visit: Pt had pain a couple days ago when flipping something upside-down. Pt is feeling better overall. Starting work june 01 at full duty. Pt states she feels about 45-50% improvement overall in the R shoulder now. Functional Limitations: lifting Prior Level of Function: Independent without limitations Intake Information: Prescription present Pain: Pain Pain Level: 0 Pain Location: Shoulder - Right Post Treatment Pain Post Treatment Pain Location: Shoulder - Right PROMIS Scales Higher is Better 04/22/2022 04/22/2022 05/25/2022 Phys Func - Score - 41 (mild dysfunction) 47 (within normal limits) Phys Func - Percentile - 18 % 38 % Social Roles - Score - 43 (mild dysfunction) 52 (within normal limits) Social Role - Percentile - 24 % 58 % GH Physical - Score - 34.9 (Poor) - GH Physical - Percentile 7 % 7 % - GH Mental - Score - 38.8 (Fair) - GH Mental - Percentile 13 % 13 % - Self-Eff Symptom - Score - 37 (Low) 48 (Average) Self-Eff Symptom - Percentile - 10 % 42 % T-scores: mean of general population = 50. 5 points is clinically meaningfully difference Percentiles provide an indication of how the patient's score ranks in relation to the general population. Higher percentile rankings indicate better function/quality of life. 50th percentile is the average of the general population and indicates half of respondents had a worse score. Lower is Better 04/22/2022 05/25/2022 Fatigue - Score 72 (severe) 51 (within normal limits) Fatigue - Percentile 1 % 46 % T-scores: mean of general population = 50. 5 points is clinically meaningfully difference Percentiles provide an indication of how the patient's score ranks in relation to the general population. Higher percentile rankings indicate better function/quality of life. 50th percentile is the average of the general population and indicates half of respondents had a worse score. OBJECTIVE MEASURES WITH LEVEL OF FUNCTION: Posture / Alignment Posture: Forward head Cervical Spine ROM Cervical Flexion AROM: Normal UE AROM R Shoulder Flex: 157 Degrees (tightness and popping) R Shoulder ABduction: 140 Degrees UE PROM R Shoulder External Rotation: 90 Degrees (with arm abd to 90) UE Joint Mobility R Shoulder joint mobility: WNL UE and Cervical Strength R Shoulder Flexion: 4/5 R Shoulder Internal Rotation: 4-/5 R Shoulder External Rotation: 3+/5 L Shoulder Internal Rotation: 4+/5 L Shoulder External Rotation: 4+/5 TREATMENT: Therapeutic Exercise: 1: All objective measures taken this session 2: Standing shoulder ER OTB 3 x 10 reps 3: Standing shoulder IR OTB 3 x 10 reps 4: Standing shoulder abd OTB 3 x 10 reps (modified ROM to keep pain to a minimum) 5: L scalene stretch x 30 sec Skilled Intervention: Patient was educated in proper exercise technique and purpose for exercises. Provided written instruction for home exercise program to facilitate proper performance and compliance. Correct performance of therapeutic exercises was facilitated with verbal and visual cuing. Billing Therapeutic Exercise Treatment Minutes: 45 Total Treatment Time Minutes (timed/untimed): 45 Jarrett Hodgson PT documented in this encounterUniversity Hospitals [facility]06-27-2022 History of Present illness Narrative* Di Arreola APRN.GROVE SUPERINTENDENT - 05/25/2022 1:04 PM EDT This is a 26 year old female who presents today with: Patient presents with: Recheck: 2 week follow up- shoulder pain HISTORY OF PRESENT ILLNESS: Per Farmer is a 26 year old female. Patient presents with: Recheck: 2 week follow up- shoulder pain Pt presents today to follow-up on shoulder pain. At last visit, released to light duty. However, work unable to accommodate light duty. She feels ready to proceed back to full duty. Refers minimal tenderness of the right upper trap area. Continues PT exercises. PAST MEDICAL HISTORY: PAST MEDICAL HISTORY Diagnosis Date Anemia Asthma Deafness Depression Developmental delay alcohol syndrome Hearing impaired person, right Hypoglycemia disorder alcohol syndrome. PTSD (post-traumatic stress disorder) Seizures (HCC) 12/01/2017 Trichomoniasis 2019 treated PAST SURGICAL HISTORY Procedure Laterality Date COLONOSCOPY FLX DX W/COLLJ SPEC WHEN PFRMD 07/22/2020 Colonoscopy ESOPHAGOGASTRODUODENOSCOPY TRANSORAL DIAGNOSTIC 07/22/2020 EGD HYSTEROSCOPY DIAGNOSTIC 06/21/2019 for AUB, LYSIS OF ADHESIONS 06/21/2019 diagnostic for chronic pelvic pain, omental adhesions to ant. abd. wall, pelvis normal, op report scanned ALLERGIES Amoxicillin, Carbocaine [Mepivacaine Hcl], Lidocaine, Mushroom, Nexplanon [Etonogestrel],and Novacain [Procaine Hcl] MEDICATIONS Current Outpatient Medications Medication Sig HYDROcodone-acetaminophen (NORCO) 5-325 mg per tablet Take 1 tablet by mouth every 6 hours as needed. meclizine (ANTIVERT) 25 mg tab Take 25 mg by mouth three times daily as needed for For Dizziness. folic acid 1 mg tablet Take 1 tablet by mouth once daily. ferrous sulfate 325 mg (65 mg iron) tablet Take 1 tablet by mouth twice daily with meals. sertraline (ZOLOFT) 100 mg tablet Take 1.5 tablets by mouth once daily. topiramate (TOPAMAX) 50 mg tablet Take 1 tablet by mouth twice daily. medroxyPROGESTERone (DEPO-PROVERA) 150 mg/mL injection Inject 1 mL intramuscularly every 12 weeks. blood sugar diagnostic (BLOOD GLUCOSE TEST) test strip Test blood sugar(s) 2 times daily. Dx: Type 2 DM - Controlled E11.9 Insulin: No albuterol (PROVENTIL) 2.5 mg/3 mL (0.083 %) nebulizer solution Use 3 mL via nebulizer every 4 hoursas needed for wheezing/shortness of breath. ibuprofen (MOTRIN IB) 200 mg tablet Take 800 mg by mouth every 6 hours as needed. Rx by CUSTOMER ENGAGEMENT MANAGER pt reported ovary pain albuterol HFA (VENTOLIN HFA) 90 mcg/actuation inhaler Inhale 2 Puffs as instructed every 4 hours asneeded. Lancets lancets Test blood sugar(s) 4 times daily. Dx: Type 2 DM - Controlled E11.9 Insulin: No Current Facility-Administered Medications Medication Dose Route Frequency medroxyPROGESTERone 150 mg injection (DEPO-PROVERA) 150 mg INTRAMUSCULAR every 12 weeks FAMILY HISTORY Adopted: Yes Problem Relation Age of Onset Colon Cancer Maternal Grandmother Social History Tobacco Use Smoking status: Current Every Day Smoker Packs/day: 0.25 Types: Cigarettes Smokeless tobacco: Former User Types: Chew Vaping Use Vaping Use: Never used Substance Use Topics Alcohol use: Yes Comment: occasional beer Drug use: No EXAM: BP 116/82 Pulse 96 Resp 18 LMP 03/29/2022 (LMP Unknown) SpO2 97% PHYSICAL EXAM: General Appearance: Well appearing, alert, in no acute distress, well-hydrated, well nourished.. Skin: Skin color, texture, turgor normal, no suspicious rashes or lesions. Head: Normocephalic, no masses, lesions, tenderness or abnormalities. Eyes: Anicteric sclera. Extraocular movements are intact. . Lungs: Lungs clear to auscultation. No wheezing, rhonchi, rales.. Heart: RRR without murmur, gallop, or rubs. No ectopy. Extremities: No deformities, edema, skin discoloration, clubbing or cyanosis. Good capillary refill. ROM intact to the neck and upper extremities. = strength. Neurologic: Gait normal. ASSESSMENT/PLAN: 1. Acute pain of right shoulder - ICD9: 719.41, ICD10: M25.511 Has 2 more episodes of physical therapy this week. Symptoms are greatly improved. We will go ahead and release back to work at this time. Discussed treatment plan and patient voices understanding. Patient's questions answered appropriately. Medications and potential side effects were discussed and patient voices understanding. Return to the office as scheduled or as needed for worsening/no improvement. Di Arreola APRN.BAKARI This note was partially generated using [employer] voice recognition system. Note was reviewed for accuracy. There may be minor misspellings or grammar miscues with [employer] voice recognition. documented in this encounterUniversity Hospitals [facility]06-16-2022 History of Present illness Narrative* Mary Ann Stover PA-C - 05/14/2022 12:04 PM EDT Images from the original note were not included. This note was created using [employer]. Subjective Per Farmer is a 26 year old female. HPI Patient presents with a rash on the butt crack area for the past 2 days. She states it is itchy butis painful to sit on. Denies history of pilonidal abscess or cyst. She denies fever or chills. States she has had some diarrhea issues which is chronic but really is not having any rectal pain or perianal pain. No other new exposures. No injury to the tailbone area. Review of Systems Constitutional: Negative. HENT: Negative. Respiratory: Negative. Cardiovascular: Negative. Gastrointestinal: Negative. Rash/pain in the butt crack All other systems reviewed and are negative. PAST MEDICAL HISTORY Diagnosis Date Anemia Asthma Deafness Depression Developmental delay alcohol syndrome Hearing impaired person, right Hypoglycemia disorder alcohol syndrome. PTSD (post-traumatic stress disorder) Seizures (HCC) 12/01/2017 Trichomoniasis 2019 treated Current Outpatient Medications Medication Sig Dispense Refill HYDROcodone-acetaminophen (NORCO) 5-325 mg per tablet Take 1 tablet by mouth every 6 hours as needed. meclizine (ANTIVERT) 25 mg tab Take 25 mg by mouth three times daily as needed for For Dizziness. folic acid 1 mg tablet Take 1 tablet by mouth once daily. 90 tablet 3 ferrous sulfate 325 mg (65 mg iron) tablet Take 1 tablet by mouth twice daily with meals. 180 tablet 1 sertraline (ZOLOFT) 100 mg tablet Take 1.5 tablets by mouth once daily. 135 tablet 1 topiramate (TOPAMAX) 50 mg tablet Take 1 tablet by mouth twice daily. 180 tablet 1 medroxyPROGESTERone (DEPO-PROVERA) 150 mg/mL injection Inject 1 mL intramuscularly every 12 weeks. 1 mL 4 blood sugar diagnostic (BLOOD GLUCOSE TEST) test strip Test blood sugar(s) 2 times daily. Dx: Type 2 DM - Controlled E11.9 Insulin: No 50 Strip 11 albuterol (PROVENTIL) 2.5 mg/3 mL (0.083 %) nebulizer solution Use 3 mL via nebulizer every 4 hoursas needed for wheezing/shortness of breath. 120 mL 3 ibuprofen (MOTRIN IB) 200 mg tablet Take 800 mg by mouth every 6 hours as needed. Rx by CUSTOMER ENGAGEMENT MANAGER pt reported ovary pain albuterol HFA (VENTOLIN HFA) 90 mcg/actuation inhaler Inhale 2 Puffs as instructed every 4 hours asneeded. 6.7 g 1 Lancets lancets Test blood sugar(s) 4 times daily. Dx: Type 2 DM - Controlled E11.9 Insulin: No 100Each 1 sulfamethoxazole-trimethoprim (BACTRIM DS) 800-160 mg per tablet Take 1 tablet by mouth twice dailyfor 7 days. 14 tablet 0 Current Facility-Administered Medications Medication Dose Route Frequency Provider Last Rate Last Admin medroxyPROGESTERone 150 mg injection (DEPO-PROVERA) 150 mg INTRAMUSCULAR every 12 weeks Jakub Martin APRN.GROVE SUPERINTENDENT 150 mg at 04/24/22 1010 PAST SURGICAL HISTORY Procedure Laterality Date COLONOSCOPY FLX DX W/COLLJ SPEC WHEN PFRMD 07/22/2020 Colonoscopy ESOPHAGOGASTRODUODENOSCOPY TRANSORAL DIAGNOSTIC 07/22/2020 EGD HYSTEROSCOPY DIAGNOSTIC 06/21/2019 for AUB, LYSIS OF ADHESIONS 06/21/2019 diagnostic for chronic pelvic pain, omental adhesions to ant. abd. wall, pelvis normal, op report scanned FAMILY HISTORY Adopted: Yes Problem Relation Age of Onset Colon Cancer Maternal Grandmother Social History Tobacco Use Smoking status: Current Every Day Smoker Packs/day: 0.25 Types: Cigarettes Smokeless tobacco: Former User Types: Chew Vaping Use Vaping Use: Never used Substance Use Topics Alcohol use: Yes Comment: occasional beer Drug use: No Objective BP 122/80 Pulse 85 Temp 36.8 C (98.3 F) (Tympanic) Resp 16 Wt 87.5 kg (192 lb 12.8 oz) LMP 03/29/2022 (LMP Unknown) SpO2 98% BMI 30.20 kg/m Physical Exam Vitals reviewed. Constitutional: Appearance: Normal appearance. HENT: Head: Normocephalic and atraumatic. Cardiovascular: Rate and Rhythm: Normal rate and regular rhythm. Heart sounds: Normal heart sounds. Pulmonary: Effort: Pulmonary effort is normal. Breath sounds: Normal breath sounds. Skin: General: Skin is warm and dry. Comments: Patient has mild redness but really no significant rash in the gluteal cleft. No fluctuance or sign of palpable pilonidal abscess. She is tender on palpation here. No vesicles. No redness or swelling in the perianal area or tenderness to palpation. No sign of perianal abscess. Neurological: General: No focal deficit present. Mental Status: She is alert and oriented to person, place, and time. Assessment and Plan ASSESSMENT/PLAN: 1. Tail bone pain - ICD9: 724.79, ICD10: M53.3 Patient has some faint redness, could be the start of early cellulitis versus pilonidal however I do not palpate an abscess. I will start her on Bactrim. recommended follow-up with PCP. Red flags to be seen again emergently discussed. Mary Ann Stover PA-C documented in this encounterUniversity Hospitals [facility]06-15-2022 Instructions* Patient Instructions* Di Arreola APRN.CNP - 05/13/2022 10:58 AM EDT 1. Light duty X 2 weeks. 2. Recheck in the office in 2 weeks. documented in this encounterUniversity Hospitals [facility]06-15-2022 History of Present illness Narrative* Di Arreola APRN.CNP - 05/13/2022 10:49 AM EDT This is a 26 year old female who presents today with: Patient presents with: Recheck: 2 week follow up HISTORY OF PRESENT ILLNESS: Per Farmer is a 26 year old female. Patient presents with: Recheck: 2 week follow up Pt presents today for two week recheck of shoulder injury. Refers the shoulder is doing better. She continues to go to PT every Wednesday/. She continues to be off of work. Hasn't been needing to take anything for pain. Refers that she is able to move it around more with better ROM. Denies any n/t. She thinks she is ready to return to work. 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 Per patient, PT recommended if she returns to work, she should be on light duty initially. PAST MEDICAL HISTORY: PAST MEDICAL HISTORY Diagnosis Date Anemia Asthma Deafness Depression Developmental delay alcohol syndrome Hearing impaired person, right Hypoglycemia disorder alcohol syndrome. PTSD (post-traumatic stress disorder) Seizures (HCC) 12/01/2017 Trichomoniasis 2019 treated PAST SURGICAL HISTORY Procedure Laterality Date COLONOSCOPY FLX DX W/COLLJ SPEC WHEN PFRMD 07/22/2020 Colonoscopy ESOPHAGOGASTRODUODENOSCOPY TRANSORAL DIAGNOSTIC 07/22/2020 EGD HYSTEROSCOPY DIAGNOSTIC 06/21/2019 for AUB, LYSIS OF ADHESIONS 06/21/2019 diagnostic for chronic pelvic pain, omental adhesions to ant. abd. wall, pelvis normal, op report scanned ALLERGIES Amoxicillin, Carbocaine [Mepivacaine Hcl], Lidocaine, Mushroom, Nexplanon [Etonogestrel],and Novacain [Procaine Hcl] MEDICATIONS Current Outpatient Medications Medication Sig HYDROcodone-acetaminophen (NORCO) 5-325 mg per tablet Take 1 tablet by mouth every 6 hours as needed. meclizine (ANTIVERT) 25 mg tab Take 25 mg by mouth three times daily as needed for For Dizziness. folic acid 1 mg tablet Take 1 tablet by mouth once daily. ferrous sulfate 325 mg (65 mg iron) tablet Take 1 tablet by mouth twice daily with meals. sertraline (ZOLOFT) 100 mg tablet Take 1.5 tablets by mouth once daily. topiramate (TOPAMAX) 50 mg tablet Take 1 tablet by mouth twice daily. medroxyPROGESTERone (DEPO-PROVERA) 150 mg/mL injection Inject 1 mL intramuscularly every 12 weeks. blood sugar diagnostic (BLOOD GLUCOSE TEST) test strip Test blood sugar(s) 2 times daily. Dx: Type 2 DM - Controlled E11.9 Insulin: No albuterol (PROVENTIL) 2.5 mg/3 mL (0.083 %) nebulizer solution Use 3 mL via nebulizer every 4 hoursas needed for wheezing/shortness of breath. ibuprofen (MOTRIN IB) 200 mg tablet Take 800 mg by mouth every 6 hours as needed. Rx by CUSTOMER ENGAGEMENT MANAGER pt reported ovary pain albuterol HFA (VENTOLIN HFA) 90 mcg/actuation inhaler Inhale 2 Puffs as instructed every 4 hours asneeded. Lancets lancets Test blood sugar(s) 4 times daily. Dx: Type 2 DM - Controlled E11.9 Insulin: No Current Facility-Administered Medications Medication Dose Route Frequency medroxyPROGESTERone 150 mg injection (DEPO-PROVERA) 150 mg INTRAMUSCULAR every 12 weeks FAMILY HISTORY Adopted: Yes Problem Relation Age of Onset Colon Cancer Maternal Grandmother Social History Tobacco Use Smoking status: Current Every Day Smoker Packs/day: 0.25 Types: Cigarettes Smokeless tobacco: Former User Types: Chew Vaping Use Vaping Use: Never used Substance Use Topics Alcohol use: Yes Comment: occasional beer Drug use: No EXAM: BP 106/84 Pulse 85 Resp 18 LMP 03/29/2022 (LMP Unknown) SpO2 96% PHYSICAL EXAM: General Appearance: Well appearing, alert, in no acute distress, well-hydrated, well nourished.. Skin: Skin color, texture, turgor normal, no suspicious rashes or lesions. Head: Normocephalic, no masses, lesions, tenderness or abnormalities. Eyes: Anicteric sclera. Pupils are equally round and reactive to light. Extraocular movements are intact. . Neck: Supple, no adenopathy; thyroid symmetric, normal size, no bruits. Back: tenderness in the right upper trap. Lungs: Lungs clear to auscultation. No wheezing, rhonchi, rales.. Heart: RRR without murmur, gallop, or rubs. No ectopy. Extremities: No deformities, edema, skin discoloration, clubbing or cyanosis. Good capillary refill. ROM improved. Neurologic: Gait normal. ASSESSMENT/PLAN: 1. Acute pain of right shoulder - ICD9: 719.41, ICD10: M25.511 Improved. Will return to work w/ restrictions. Continue PT. Recheck in 2 weeks to eval if can be released to full duty. Discussed treatment plan and patient voices understanding. Patient's questions answered appropriately. Medications and potential side effects were discussed and patient voices understanding. Return to the office as scheduled or as needed for worsening/no improvement. Di Arreola APRN.BAKARI documented in this encounterUniversity Hospitals [facility]06-14-2022 History of Present illness Narrative* Jarrett Hodgson, PT - 05/12/2022 1:17 PM EDT Episode Visit Count: 4 Therapist That Will Oversee The Plan Of Care: GokulJarrett Start of Care Date: 04/23/22 Onset Date: 04/09/22 Plan of Care Certification Date: 04/23/22 Next Certification Due Date: 05/28/22 Patient Identified by Name and Date of : Yes REHABILITATION AND SPORTS THERAPY PHYSICAL THERAPY TREATMENT NOTE ASSESSMENT: Per Farmer tolerated the session with some decreased pinching in shoulder after STM to R upper trap. She demonstrated some difficulty remembering the proper form with shoulder ER and IR isometrics. The patient will continue to benefit from ongoing skilled physical therapy to progress toward set goals. PLAN FOR NEXT VISIT: Trial weighted shoulder scaption 1# SUBJECTIVE: Patient Reason for Visit: Pt feels tired after a busy weekend. Pt states her shoulder is sore at times but is able to do more with it. Pain: Pain Pain Level: 0 Pain Location: Shoulder - Right Post Treatment Pain Post Treatment Pain Location: Shoulder - Right OBJECTIVE MEASURES WITH LEVEL OF FUNCTION: Pain with palpation to trigger point in the R upper trap and pain and muscle tightness at the medial delt of the R arm TREATMENT: Therapeutic Exercise: 1: Towel slides on door 2 x 10 2: Shoulder pulleys x 20 3: SL shoulder ER x 10 4: SL shoulder ER 2 x 10 (1#) 5: Standing shoulder ER iso x 10 6: Standing shoulder IR iso x 10 Skilled Intervention: Patient was educated in proper exercise technique and purpose for exercises. Provided written instruction for home exercise program to facilitate proper performance and compliance. Correct performance of therapeutic exercises was facilitated with verbal and visual cuing. Manual Therapy: 1: STM hand over hands glides along R upper trap 2: ischemic compression over R upper trap and R medial deltoid Skilled Intervention: Manual skills to improve joint mobility, ROM, and decrease pain. Utilized anatomy knowledge of the therapist, and assessment of patient's response to intervention. Billing Therapeutic Exercise Treatment Minutes: 30 Manual TherapyTreatment Minutes: 15 Total Treatment Time Minutes (timed/untimed): 45 Jarrett Hodgson PT documented in this encounterUniversity Hospitals [facility]06-02-2022 History of Present illness Narrative* Roosevelt Olivas RT(R) - 04/30/2022 2:50 PM EDT Radiology Service Progress Note PATIENT NAME: Per Farmer DATE OF SERVICE: April 30, 2022 TIME: 2:48 PM PATIENT IDENTITY VERIFICATION COMPLETED USING TWO (2) IDENTIFIERS: Name and Date of confirmedby patient verbally. FALL SCREENING: Has the patient had 2 falls in the last year or 1 fall with injury or currently using an Ambulatory Assistive Device (Walker, Cane, Wheelchair, Crutches, etc.)? No PATIENT GENDER DATA: Female. status: : No status: NO. PATIENT RELEVANT IMPLANT DATA REVIEWED: Not Applicable RADIOLOGY DEPARTMENT: General X-ray: Exam(s) Completed: Upper Extremity X- Ray(s): Shoulder, AP / TRUE AP / AXILLARY right PERIPHERAL IV DATA: Not applicable SIGNED BY: RT Bianca(R) April 30, 2022 2:48 PM documented in this encounterUniversity Hospitals Beach[facility]06-02-2022 History of Present illness Narrative* Sophie Avalos MD - 04/30/2022 2:20 PM EDT Patient presents with: Follow Up: right shoulder started PT as ordered HPI: Patient presents today for office visit for follow up. Placed in therapy. Called asking for 4 to 8 weeks off of work. Given two weeks to start treatment and then follow up. Has not moved furniture. Still very painful. Is wearing sling. No neck pain Ice makes it worse. Range of motion is limited. Has some numbness that is chronic. They have wondered if she has carpal tunnel but nothing new. 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 Saw Di Arreola recently, copied and pasted: Recently hurt shoulder moving furniture about 1 1/2 weeks ago. She went to the ER yesterday. The suggested that she put it in a sling to help immobilize it. They gave her some pain medication. She wasn't taken anything for pain prior to the ER visit. They gave her ibuprofen 600 mg and vicodin. Reports that she hasn't taken anything for pain. She is wearing a sling today. No n/t. MEDICATIONS: Current Outpatient Medications Medication Sig HYDROcodone-acetaminophen (NORCO) 5-325 mg per tablet Take 1 tablet by mouth every 6 hours as needed. meclizine (ANTIVERT) 25 mg tab Take 25 mg by mouth three times daily as needed for For Dizziness. (Patient not taking: Reported on 04/22/2022 ) folic acid 1 mg tablet Take 1 tablet by mouth once daily. ferrous sulfate 325 mg (65 mg iron) tablet Take 1 tablet by mouth twice daily with meals. sertraline (ZOLOFT) 100 mg tablet Take 1.5 tablets by mouth once daily. topiramate (TOPAMAX) 50 mg tablet Take 1 tablet by mouth twice daily. medroxyPROGESTERone (DEPO-PROVERA) 150 mg/mL injection Inject 1 mL intramuscularly every 12 weeks. blood sugar diagnostic (BLOOD GLUCOSE TEST) test strip Test blood sugar(s) 2 times daily. Dx: Type 2 DM - Controlled E11.9 Insulin: No albuterol (PROVENTIL) 2.5 mg/3 mL (0.083 %) nebulizer solution Use 3 mL via nebulizer every 4 hoursas needed for wheezing/shortness of breath. ibuprofen (MOTRIN IB) 200 mg tablet Take 800 mg by mouth every 6 hours as needed. Rx by CUSTOMER ENGAGEMENT MANAGER pt reported ovary pain albuterol HFA (VENTOLIN HFA) 90 mcg/actuation inhaler Inhale 2 Puffs as instructed every 4 hours asneeded. etodolac (LODINE) 400 mg tablet Take 1 tablet by mouth twice daily as needed. (Patient not taking: Reported on 04/22/2022 ) Lancets lancets Test blood sugar(s) 4 times daily. Dx: Type 2 DM - Controlled E11.9 Insulin: No Current Facility-Administered Medications Medication Dose Route Frequency medroxyPROGESTERone 150 mg injection (DEPO-PROVERA) 150 mg INTRAMUSCULAR every 12 weeks ALLERGIES: ALLERGIES Allergen Reactions Amoxicillin Shortness of Breath Carbocaine [Mepivac* Unknown Lidocaine Swelling Mushroom Anaphylaxis Nexplanon [Etonoges* Swelling Novacain [Procaine * Unknown PAST MEDICAL HISTORY Diagnosis Date Anemia Asthma Deafness Depression Developmental delay alcohol syndrome Hearing impaired person, right Hypoglycemia disorder alcohol syndrome. PTSD (post-traumatic stress disorder) Seizures (HCC) 12/01/2017 Trichomoniasis 2019 treated PAST SURGICAL HISTORY Procedure Laterality Date COLONOSCOPY FLX DX W/COLLJ SPEC WHEN PFRMD 07/22/2020 Colonoscopy ESOPHAGOGASTRODUODENOSCOPY TRANSORAL DIAGNOSTIC 07/22/2020 EGD HYSTEROSCOPY DIAGNOSTIC 06/21/2019 for AUB, LYSIS OF ADHESIONS 06/21/2019 diagnostic for chronic pelvic pain, omental adhesions to ant. abd. wall, pelvis normal, op report scanned FAMILY HISTORY Adopted: Yes Problem Relation Age of Onset Colon Cancer Maternal Grandmother Social History Tobacco Use Smoking status: Current Every Day Smoker Packs/day: 0.25 Types: Cigarettes Smokeless tobacco: Former User Types: Chew Vaping Use Vaping Use: Never used Substance Use Topics Alcohol use: Yes Comment: occasional beer Drug use: No Reviewed current medications, allergies, past medical history, surgical history, family history andsocial history today. REVIEW OF SYSTEMS All other reviewed and negative other than HPI. VITALS: BP 102/62 Pulse 88 Wt 87.5 kg (193 lb) LMP 03/29/2022 (LMP Unknown) BMI 30.23 kg/m Last 4 Encounter Wt Readings: Date: Wt: 04/24/2022 85 kg (187 lb 6.4 oz) 04/22/2022 84.2 kg (185 lb 9.6 oz) 04/09/2022 83 kg (183 lb) 01/30/2022 93.9 kg (207 lb) PHYSICAL EXAMINATION: General appearance: Well appearing, alert, in no acute distress, well-hydrated, well nourished. Skin: Skin color, texture, turgor normal, no suspicious rashes or lesions Neck: tender over her right trapezius. Back: Normal exam Shoulder: Location: right Tenderness to palpation: as above . Swelling: No. Range of motion: normal. Empty can test: negative. Musculoskeletal: No joint swelling, deformity, or tenderness Peripheral pulses: Normal Neuro: Gait normal. Reflexes normal and symmetric. Sensation grossly intact., Negative findings: muscle tone normal ASSESSMENT/PLAN: 1. Acute pain of right shoulder - ICD9: 719.41, ICD10: M25.511 - Discussed risks and benefits of new medication with the patient. Advised them to call if any sideeffects or questions. - Call if symptoms worsen at all or if not better in one to two weeks - continue therapy. Off work for two weeks. - XR SHOULDER GENERAL 3V OR MORE AP/TRUE AP/OTHER RIGHT - METHYLPREDNISOLONE 4 MG TABLETS IN A DOSE PACK Sophie Avalos RTO in two weeks and prn. Medical Decision Making: Problems: Low: Acute, uncomplicated illness or injury Data: Unique test(s) ordered: 1 Risk: Moderate: Drug management Medical Decision Making Level: 3 - Low documented in this encounterUniversity Hospitals [facility]06-02-2022 History of Present illness Narrative* Jarrett Hodgson, PT - 04/30/2022 9:57 AM EDT Episode Visit Count: 2 Therapist That Will Oversee The Plan Of Care: Jarrett Hodgson Start of Care Date: 04/23/22 Onset Date: 04/09/22 Plan of Care Certification Date: 04/23/22 Next Certification Due Date: 05/28/22 Patient Identified by Name and Date of : Yes REHABILITATION AND SPORTS THERAPY PHYSICAL THERAPY TREATMENT NOTE ASSESSMENT: Per Farmer tolerated the session with no change in symptoms. She demonstrated better tolerance to seated arm flexion AAROM using wand vs kennedy system. The patient will continue tobenefit from ongoing skilled physical therapy to progress toward set goals. PLAN FOR NEXT VISIT: Load the RTC's as tolerated. SUBJECTIVE: Patient Reason for Visit: Pt states she feels her shoulder is doing about the same. Thepulley exercise is causing pain. Pain: Pain Pain Level: 5 Pain Location: Shoulder - Right Post Treatment Pain Post Treatment Pain Level: No Change Post Treatment Pain Location: Shoulder - Right OBJECTIVE MEASURES WITH LEVEL OF FUNCTION: Pt reports that cervical flexion decreases scapular pain on the R but pain remains at the same rating of the VAS when assessed. allodynia with palpation to R scalenes and ER's of the R shoulder TREATMENT: Therapeutic Exercise: 1: Table slides flexion x 5 reps 2: Seated wand iso ER x 10 3: Seated wand IR iso x 10 4: Seated wand AAROM flexion 2 x 10 5: Wall slides with towel 3 x 10 reps Skilled Intervention: Patient was educated in proper exercise technique and purpose for exercises. Provided written instruction for home exercise program to facilitate proper performance and compliance. Correct performance of therapeutic exercises was facilitated with verbal and visual cuing. Billing Therapeutic Exercise Treatment Minutes: 40 Total Treatment Time Minutes (timed/untimed): 40 Jarrett Hodgson PT documented in this encounterUniversity Hospitals [facility]05-27-2022 Miscellaneous Notes* Telephone Encounter - Sophie Avalos MD - 04/24/2022 4:52 PM EDT I can give her off two weeks but then would have to follow up with one of us to extend. printed * Telephone Encounter - Odette Cordoba RN - 04/24/2022 12:43 PM EDT Pt called in and reports she went to PT and they told her she needs to be off work for 4-8 weeks for her shoulder injury. She states she needs a letter from her PCP to take into work stating that sheneeds this time off. Pt reports that she will be to pick the letter up some time in the next week. Please call and advise. documented in this encounterUniversity Hospitals [facility]05-27-2022 History of Present illness Narrative* Amy Mckay RN - 04/24/2022 10:02 AM EDT Patient identified by name and date of . Per Farmer is here for a Depo Provera injection. Patient brought medication. Date last injected: 01/30/22 Depo-Provera, 150 mg, administered IM left deltoid, Lot # [id number], expiration date 11/28/2023. Depo-Provera was given without incident. Date of last menses: Patient's last menstrual period was 03/29/2022 (lmp unknown). Irregular bleeding - No Menses ceased - Yes STD prevention discussed: Yes Patient instructed to return to clinic in 12 weeks +/- 5 days. [email or web address] Provider Jessica Engel MD was present in office at time of injection. Amy Mckay RN documented in this encounterUniversity Hospitals [facility]05-26-2022 History of Present illness Narrative* Jarrett Hodgson, PT - 04/23/2022 1:58 PM EDT Episode Visit Count: 1 Therapist That Will Oversee The Plan Of Care: Jarrett Hodgson Start of Care Date: 04/23/22 Onset Date: 04/09/22 Plan of Care Certification Date: 04/23/22 Next Certification Due Date: 05/28/22 Patient Identified by Name and Date of : Yes REHABILITATION AND SPORTS THERAPY PHYSICAL THERAPY EVALUATION PLAN OF CARE: Assessment: Per Farmer presents with chief complaint of R shoulder pain that interferes withreaching behind back;reaching overhead . She presents with impairments in ADL's, independence in exercise, range of motion, strength and tissue tenderness. PROMIS (Patient-Reported Outcomes Measurement Information System) scores were reviewed and all domains identified as a rehabilitation concern. Prognosis for therapy is Good due to: current objective clinical presentation . Pt's familiar pain created with resisted shoulder ER and IR as well as active movement of the R shoulder beyond 80 deg of elevation. Unable to perform sulcus test due to pain and guarding. She will benefit from skilled erapy services to meet the goals established for this plan of care as noted below. Goals for Episode of Care: created on 04/23/22 through 07/16/22 Pt will be able to perform AROM that is WNL with the R shoulder to return to reaching objects overhead Pt will demo 4+/5 RUE strength for return to PLOF in 12 weeks or less Pt will report overall improvement in symptoms by 80% in 10 weeks or less for improved QOL Hubertus in home exercise program. Planned Interventions, Frequency, and Duration: Current Frequency: 2x/week Duration: 4 weeks Total Number of Visits Planned: 8 Planned Treatment Interventions: Neuromuscular re-education (04676);Therapeutic exercise (93250);Manual therapy (61835);Self-longterm management (68522);Patient/Family/Caregiver Education PLAN FOR NEXT VISIT: Assess reaction to HEP. Trial wall slides with towel. Patient demonstrates good understanding of plan of care and treatment. The above goals and plan of care were discussed and agreed upon by patient/family. SUBJECTIVE: Per Farmer is a 26 year old female seen today for R shoulder pain. Pt was movinga solid Coravin dresser and pt had pain from this decribed as sharp that shot through the arm and shoulder. The pain shot down to the R elbow. Pt went to the ER they did not do anything and wanted me tosee my doctor and got pain meds. Pt is wearing a sling for now. Some popping since this injury at the shoulder. Has had the shoulder dislocate before. Mulitple dislocations at the shoulder. Pt reports that she has N/T in the R forearm to the hand. 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 Intake Information: Prescription present Previous Treatment: NSAIDs Falls Interview: No positive findings with falls interview Pain: Pain Pain Level: 7 Pain Location: Shoulder - Right Description: Sharp;Aching PROMIS Scales Higher is Better 03/28/2020 04/22/2022 04/22/2022 Phys Func - Score - - 41 (mild dysfunction) Phys Func - Percentile - - 18 % Social Roles - Score - - 43 (mild dysfunction) Social Role - Percentile - - 24 % GH Physical - Score 34.9 - 34.9 (Poor) GH Physical - Percentile 7 % 7 % 7 % GH Mental - Score 45.8 - 38.8 (Fair) GH Mental - Percentile 34 % 13 % 13 % Self-Eff Symptom - Score - - 37 (Low) Self-Eff Symptom - Percentile - - 10 % T-scores: mean of general population = 50. 5 points is clinically meaningfully difference Percentiles provide an indication of how the patient's score ranks in relation to the general population. Higher percentile rankings indicate better function/quality of life. 50th percentile is the average of the general population and indicates half of respondents had a worse score. Lower is Better 04/22/2022 Fatigue - Score 72 (severe) Fatigue - Percentile 1 % T-scores: mean of general population = 50. 5 points is clinically meaningfully difference Percentiles provide an indication of how the patient's score ranks in relation to the general population. Higher percentile rankings indicate better function/quality of life. 50th percentile is the average of the general population and indicates half of respondents had a worse score. OBJECTIVE MEASURES WITH LEVEL OF FUNCTION: Cervical Spine ROM Cervical ROM : Limitation AROM Cervical Flexion AROM: Normal Cervical Extension AROM: Normal Cervical Side-Bend Right AROM: Normal Cervical Side-Bend Left AROM: Normal Cervical Rotation Right AROM: Normal Cervical Rotation Left AROM: Normal UE AROM L UE AROM: WNL R Shoulder Flex: 80 Degrees (Pain limiting) R Shoulder ABduction: 85 Degrees (Pain limiting) R Shoulder Internal Rotation (Functional): L2 (Thumb) L Shoulder Internal Rotation (Functional): T7 UE and Cervical Strength Strength Tested: Shoulder All R Shoulder Flexion: 3-/5 R Shoulder Abduction (C5): 3-/5 R Shoulder Internal Rotation: 3/5 R Shoulder External Rotation: 3/5 Education: Education Learning Preferences: Demonstration;Explanation;Printed Materials;Performance Barriers: None Learning/educational needs: Home exercise program;Plan of Care Education Provided: Yes, see treatment interventions for education provided Education Provided To: Patient Education Mode/Type: Demonstration;Explanation/Discussion;Literature/Printed Materials;Performance Response to Education/Teach Back: States/Identifies;Return Demonstration TREATMENT: PT Treatment Interventions: Therapeutic Exercise Evaluation Therapeutic Exercise: 1: Discussed therapeutic exercises and handout provided. Discussed exam findings and how to properly perform the HEP. 2: Pulleys into flexion x 15 reps 3: Seated shoulder IR iso x 10 reps using wand 4: Seated shoulder ER iso x 10 reps using wand Skilled Intervention: Patient was educated in proper exercise technique and purpose for exercises. Skilled judgment was provided in selection of appropriate interventions. Provided written instruction for home exercise program to facilitate proper performance and compliance. Correct performance of therapeutic exercises was facilitated with verbal and visual cuing. Billing * Evaluation Low Complexity: 1 Unit Therapeutic Exercise Treatment Minutes: 25 Total Treatment Time Minutes (timed/untimed): 45 Jarrett Hodgson PT documented in this encounterUniversity Hospitals Beach[facility]05-25-2022 Instructions* Patient Instructions* Di Arreola APRN.CNP - 04/22/2022 1:18 PM EDT 1. Take the ibuprofen routinely X 1 week. 2. Schedule physical therapy. 3. Recheck in the office in 1 week. documented in this encounterUniversity Hospitals [facility] Center05-25-2022 History of Present illness Narrative* Di Arreola APRN.CNP - 04/22/2022 1:07 PM EDT This is a 26 year old female who presents today with: Patient presents with: Pain (Shoulder Pain): right shoulder HISTORY OF PRESENT ILLNESS: Per Farmer is a 26 year old female. Patient presents with: Pain (Shoulder Pain): right shoulder Recently hurt shoulder moving furniture about 1 1/2 weeks ago. She went to the ER yesterday. The suggested that she put it in a sling to help immobilize it. They gave her some pain medication. She wasn't taken anything for pain prior to the ER visit. They gave her ibuprofen 600 mg and vicodin. Reports that she hasn't taken anything for pain. She is wearing a sling today. No n/t. PAST MEDICAL HISTORY: PAST MEDICAL HISTORY Diagnosis Date Anemia Asthma Deafness Depression Developmental delay alcohol syndrome Hearing impaired person, right Hypoglycemia disorder alcohol syndrome. PTSD (post-traumatic stress disorder) Seizures ([facility]) 12/01/2017 Trichomoniasis 2019 treated PAST SURGICAL HISTORY Procedure Laterality Date COLONOSCOPY FLX DX W/COLLJ SPEC WHEN PFRMD 07/22/2020 Colonoscopy ESOPHAGOGASTRODUODENOSCOPY TRANSORAL DIAGNOSTIC 07/22/2020 EGD HYSTEROSCOPY DIAGNOSTIC 06/21/2019 for AUB, LYSIS OF ADHESIONS 06/21/2019 diagnostic for chronic pelvic pain, omental adhesions to ant. abd. wall, pelvis normal, op report scanned ALLERGIES Amoxicillin, Carbocaine [Mepivacaine Hcl], Lidocaine, Mushroom, Nexplanon [Etonogestrel],and Novacain [Procaine Hcl] MEDICATIONS Current Outpatient Medications Medication Sig folic acid 1 mg tablet Take 1 tablet by mouth once daily. ferrous sulfate 325 mg (65 mg iron) tablet Take 1 tablet by mouth twice daily with meals. sertraline (ZOLOFT) 100 mg tablet Take 1.5 tablets by mouth once daily. topiramate (TOPAMAX) 50 mg tablet Take 1 tablet by mouth twice daily. medroxyPROGESTERone (DEPO-PROVERA) 150 mg/mL injection Inject 1 mL intramuscularly every 12 weeks. albuterol (PROVENTIL) 2.5 mg/3 mL (0.083 %) nebulizer solution Use 3 mL via nebulizer every 4 hoursas needed for wheezing/shortness of breath. ibuprofen (MOTRIN IB) 200 mg tablet Take 800 mg by mouth every 6 hours as needed. Rx by CUSTOMER ENGAGEMENT MANAGER pt reported ovary pain albuterol HFA (VENTOLIN HFA) 90 mcg/actuation inhaler Inhale 2 Puffs as instructed every 4 hours asneeded. meclizine (ANTIVERT) 25 mg tab Take 25 mg by mouth three times daily as needed for For Dizziness. (Patient not taking: Reported on 04/22/2022 ) blood sugar diagnostic (BLOOD GLUCOSE TEST) test strip Test blood sugar(s) 2 times daily. Dx: Type 2 DM - Controlled E11.9 Insulin: No etodolac (LODINE) 400 mg tablet Take 1 tablet by mouth twice daily as needed. (Patient not taking: Reported on 04/22/2022 ) Lancets lancets Test blood sugar(s) 4 times daily. Dx: Type 2 DM - Controlled E11.9 Insulin: No Current Facility-Administered Medications Medication Dose Route Frequency medroxyPROGESTERone 150 mg injection (DEPO-PROVERA) 150 mg INTRAMUSCULAR every 12 weeks FAMILY HISTORY Adopted: Yes Problem Relation Age of Onset Colon Cancer Maternal Grandmother Social History Tobacco Use Smoking status: Current Every Day Smoker Packs/day: 0.25 Types: Cigarettes Smokeless tobacco: Former User Types: Chew Vaping Use Vaping Use: Never used Substance Use Topics Alcohol use: Yes Comment: occasional beer Drug use: No EXAM: BP 104/66 Pulse 92 Resp 14 Wt 84.2 kg (185 lb 9.6 oz) LMP 03/29/2022 (LMP Unknown) SpO2 98% BMI 29.07 kg/m PHYSICAL EXAM: General Appearance: Well appearing, alert, in no acute distress, well-hydrated, well nourished.. Skin: Skin color, texture, turgor normal, no suspicious rashes or lesions. Head: Normocephalic, no masses, lesions, tenderness or abnormalities. Eyes: Anicteric sclera. Pupils are equally round and reactive to light. Extraocular movements are intact. . Lungs: Lungs clear to auscultation. No wheezing, rhonchi, rales.. Heart: RRR without murmur, gallop, or rubs. No ectopy. Extremities: No deformities, edema, skin discoloration, clubbing or cyanosis. Good capillary refill. . Neurologic: Gait normal. Shoulder : Location: right shoulder Redness: no Warmth: no Tenderness to palpation: anterior and posteriorly, as well as deltoid area. Swelling: no Range of motion: Limited abduction and forward flexion. Empty can test: Negative. ASSESSMENT/PLAN: 1. Acute pain of right shoulder - ICD9: 719.41, ICD10: M25.511 Work note provided. Encourage routine use of ibuprofen x1 week to help with inflammation. Get set up with physical therapy. Encouraged to minimize use of sling, as do not want to develop frozen shoulder. Okay to use topicals such as Bengay icy hot or Biofreeze. Also discussed icing the shoulder. Recheck in 1 week. - CONSULT TO PHYSICAL THERAPY Discussed treatment plan and patient voices understanding. Patient's questions answered appropriately. Medications and potential side effects were discussed and patient voices understanding. Return to the office as scheduled or as needed for worsening/no improvement. Di Arreola APRN.GROVE SUPERINTENDENT This note was partially generated using [employer] voice recognition system. Note was reviewed for accuracy. There may be minor misspellings or grammar miscues with [employer] voice recognition. documented in this encounterUniversity Hospitals [facility] Center05-12-2022 History of Present illness Narrative* Sophie Avalos MD - 04/09/2022 2:05 PM EDT Patient presents with: Diarrhea: abd pain flared up this week HPI: Patient presents today for office visit for follow up. I have not seen Per since 2019. When last seeing gi, she was to follow up after a HIDA scan but appears it was not done. She has had symptoms for years. symptoms have been on and off. Has migraines and nausea. No vomiting. Has chronic recurrent diarrhea. No bloody or black stools. No constipation. Pain is usually on the right side. No fever or chills. These symptoms are a continuation of her chronic issues per patient. No recent travel or antibiotic usage. 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 Getting repeat labs for her thyroid. Had labs done in 01/20 Has been on multiple meds in the past with little relief. Has made diet changes. Component Latest Ref Rng & Units 01/20/2022 01/20/2022 10:37 AM 10:37 AM WBC 3.70 - 11.00 k/uL 8.37 RBC 3.90 - 5.20 m/uL 4.90 Hemoglobin 11.5 - 15.5 g/dL 13.1 Hematocrit 36.0 - 46.0 % 41.3 MCV 80.0 - 100.0 fL 84.3 MCH 26.0 - 34.0 pG 26.7 MCHC 30.5 - 36.0 g/dL 31.7 RDW-CV 11.5 - 15.0 % 13.7 Platelet Count 150 - 400 k/uL 333 MPV 9.0 - 12.7 fL 10.1 Neut% % 63.2 Abs Neut (ANC) 1.45 - 7.50 k/uL 5.28 Lymph% % 27.2 Abs Lymph 1.00 - 4.00 k/uL 2.28 [place]% % 6.7 Abs [place] <0.87 k/uL 0.56 Eosin% % 1.9 Abs Eosin <0.46 k/uL 0.16 Baso% % 1.0 Abs Baso <0.11 k/uL 0.08 Nucleated Reds 0 /100 WBC 0.0 Absolute nRBC <0.01 k/uL <0.01 Diff Type Auto Diff Protein, Total 6.3 - 8.0 g/dL 7.5 7.0 Albumin 3.9 - 4.9 g/dL 4.4 Calcium 8.5 - 10.2 mg/dL 9.4 Bilirubin, Total 0.2 - 1.3 mg/dL 0.2 Alkaline Phosphatase 34 - 123 U/L 65 AST 13 - 35 U/L 11 (L) Glucose 74 - 99 mg/dL 85 BUN 7 - 21 mg/dL 9 Creatinine 0.58 - 0.96 mg/dL 0.65 Sodium 136 - 144 mmol/L 138 Potassium 3.7 - 5.1 mmol/L 4.2 Chloride 97 - 105 mmol/L 106 (H) CO2 22 - 30 mmol/L 22 Anion Gap 9 - 18 mmol/L 10 ALT 7 - 38 U/L 11 eGFR- >60 eGFR-All Other Races . >60 Albumin 3.37 - 4.23 gm/dL 4.00 Alpha 1 Globulin 0.18 - 0.31 gm/dL 0.26 Alpha 2 Globulin 0.52 - 0.97 gm/dL 0.78 Beta Globulin 0.84 - 1.36 gm/dL 1.01 Gamma Globulin 0.70 - 1.44 gm/dL 0.95 Interpretation (Prot Electro) SEE COMMENT M-Protein Location N/A M-Protein Concentration 0.00 gm/dL 0.00 SPE Staff Review Reviewed by Carolina Up MD ([id number]) Topiramate 5.0 - 20.0 ug/mL <1.5 (L) Vitamin B12 232 - 1,245 pg/mL 366 Folate >4.7 ng/mL 2.9 (L) TSH 0.270 - 4.200 uU/mL 4.310 (H) See GASTROENTEROLOGY note from Maria Fernanda Pulliam in 2020: she has had multiple imaging studies in the past. The patient is aware that I am not fully able to assess symptoms and do a full physical exam including vital signs in the office at this time.The patient consented to this type of encounter since it was performed by phone / virtually due to the COVID-19 epidemic as an effort to protect patients andminimize exposure. Per Farmer a 25 year old female who is returning for follow up regarding altered bowel habits and abdominal pain. I saw the patient in consultation on 02/19/20. That note has been reviewed. The patient was seen by Dr. Medina for upper endoscopy and colonoscopy 07/22/20. The procedure report has been reviewed and findings as follows: EGD Impression: - Normal examined jejunum. Biopsied. - Duodenitis. - Gastritis. Biopsied. - Normal gastroesophageal junction. - Normal lower third of esophagus. Biopsied. - Normal middle third of esophagus. Biopsied. Colonoscopy Impression:- The examined portion of the ileum was normal. Biopsied. - The entire examined colon is normal. Biopsied. - The distal rectum and anal verge are normal on retroflexion view. FINAL DIAGNOSIS 1. Esophagus, distal and mid, multiple biopsies (A, B) - Squamous esophageal mucosa with no significant pathologic change. 2. Stomach, antrum, biopsy (C) - Gastric antral mucosa with no significant pathologic change. - No intestinal metaplasia or morphologic evidence of Helicobacter pylori organisms. 3. Jejunum, biopsy (D) - Small intestinal mucosa with no significant pathologic change. 4. Terminal ileum, biopsy (E) - Small intestinal mucosa with no significant pathologic change. 5. Colon, random, biopsy (F) - Colonic mucosa with no significant pathologic change. I have reviewed the procedure and pathology reports, as well as the images, with the patient. Presenting complaint: The patient presents today reporting that she continues with intermittent episodes of diarrhea. She will have 3-4 diarrhea stools during that episode. she tells me that she has very little control over her bowels or bladder. Taking omeprazole daily. No longer using dicyclomine. Reports that she is still getting bloated and swollen. it doesn't go down and is getting worse. CT of the abd/pelvis 01/14/20 was unremarkable from a GI standpoint. MEDICATIONS: Current Outpatient Medications Medication Sig meclizine (ANTIVERT) 25 mg tab Take 25 mg by mouth three times daily as needed for For Dizziness. folic acid 1 mg tablet Take 1 tablet by mouth once daily. ferrous sulfate 325 mg (65 mg iron) tablet Take 1 tablet by mouth twice daily with meals. sertraline (ZOLOFT) 100 mg tablet Take 1.5 tablets by mouth once daily. topiramate (TOPAMAX) 50 mg tablet Take 1 tablet by mouth twice daily. medroxyPROGESTERone (DEPO-PROVERA) 150 mg/mL injection Inject 1 mL intramuscularly every 12 weeks. blood sugar diagnostic (BLOOD GLUCOSE TEST) test strip Test blood sugar(s) 2 times daily. Dx: Type 2 DM - Controlled E11.9 Insulin: No albuterol (PROVENTIL) 2.5 mg/3 mL (0.083 %) nebulizer solution Use 3 mL via nebulizer every 4 hoursas needed for wheezing/shortness of breath. ibuprofen (MOTRIN IB) 200 mg tablet Take 800 mg by mouth every 6 hours as needed. Rx by CUSTOMER ENGAGEMENT MANAGER pt reported ovary pain albuterol HFA (VENTOLIN HFA) 90 mcg/actuation inhaler Inhale 2 Puffs as instructed every 4 hours asneeded. etodolac (LODINE) 400 mg tablet Take 1 tablet by mouth twice daily as needed. Lancets lancets Test blood sugar(s) 4 times daily. Dx: Type 2 DM - Controlled E11.9 Insulin: No Current Facility-Administered Medications Medication Dose Route Frequency medroxyPROGESTERone 150 mg injection (DEPO-PROVERA) 150 mg INTRAMUSCULAR every 12 weeks ALLERGIES: ALLERGIES Allergen Reactions Amoxicillin Shortness of Breath Carbocaine [Mepivac* Unknown Lidocaine Swelling Mushroom Anaphylaxis Nexplanon [Etonoges* Swelling Novacain [Procaine * Unknown PAST MEDICAL HISTORY Diagnosis Date Anemia Asthma Deafness Depression Developmental delay alcohol syndrome Hearing impaired person, right Hypoglycemia disorder alcohol syndrome. PTSD (post-traumatic stress disorder) Seizures (HCC) 12/01/2017 Trichomoniasis 2019 treated PAST SURGICAL HISTORY Procedure Laterality Date COLONOSCOPY FLX DX W/COLLJ SPEC WHEN PFRMD 07/22/2020 Colonoscopy ESOPHAGOGASTRODUODENOSCOPY TRANSORAL DIAGNOSTIC 07/22/2020 EGD HYSTEROSCOPY DIAGNOSTIC 06/21/2019 for AUB, LYSIS OF ADHESIONS 06/21/2019 diagnostic for chronic pelvic pain, omental adhesions to ant. abd. wall, pelvis normal, op report scanned FAMILY HISTORY Adopted: Yes Problem Relation Age of Onset Colon Cancer Maternal Grandmother Social History Tobacco Use Smoking status: Current Every Day Smoker Packs/day: 0.25 Smokeless tobacco: Former User Types: Chew Vaping Use Vaping Use: Never used Substance Use Topics Alcohol use: Yes Comment: occasional beer Drug use: No Reviewed current medications, allergies, past medical history, surgical history, family history andsocial history today. REVIEW OF SYSTEMS All other reviewed and negative other than HPI. VITALS: BP 114/62 Pulse 76 Wt 83 kg (183 lb) LMP 08/04/2020 BMI 28.66 kg/m Last 4 Encounter Wt Readings: Date: Wt: 04/09/2022 83 kg (183 lb) 01/30/2022 93.9 kg (207 lb) 01/20/2022 94.8 kg (209 lb) 01/15/2022 94.8 kg (209 lb) PHYSICAL EXAMINATION: General appearance: Well appearing, alert, in no acute distress, well-hydrated, well nourished. Skin: Skin color, texture, turgor normal, no suspicious rashes or lesions Head: Normocephalic, no masses, lesions, tenderness or abnormalitie Lungs: Lungs clear to auscultation. No wheezing, rhonchi, rales Heart: RRR without murmur, gallop, or rubs. No ectopy Abdomen: Normal abdominal exam, Abdomen soft, non-tender. Bowel sounds normal. No masses, organomegaly Extremities: No deformities, edema, skin discoloration, clubbing or cyanosis. Good capillary refill. ASSESSMENT/PLAN: 1. Diarrhea, unspecified type - ICD9: 787.91, ICD10: R19.7 (primary diagnosis) - was to follow with gi and has not done so, back to gi and order the HIDA that was previously ordered. Continue to watch diet. - Red flags for re-assessment reviewed with patient in detail. - CONSULT TO GASTROENTEROLOGY - NM HEPATOBILIARY W EF AND/OR RX 2. Abdominal cramping - ICD9: 789.00, ICD10: R10.9 - CONSULT TO GASTROENTEROLOGY - NM HEPATOBILIARY W EF AND/OR RX 3. Right upper quadrant pain - ICD9: 789.01, ICD10: R10.11 - NM HEPATOBILIARY W EF AND/OR RX Sophie Avalos documented in this encounterUniversity [facility]als [facility]11-[facility] Hospital Discharge instructions Patient Education 10/07/2021 10:33:44 Asthma, Acute (Adult) Asthma (Adult) Asthma is a disease where the medium and small air passages within the lung go into spasm and restrict the flow of air. Inflammation and swelling of the airways cause further blockage. During an acute asthma attack, these factors cause trouble breathing, wheezing, cough and chest tightness. An asthma attack can be triggered by many things. Common triggers include infections such as the common cold, bronchitis, and pneumonia. Irritants such as smoke or pollutants in the air, very cold air, emotional upset, and exercise can also trigger an attack. In many adults with asthma, allergies to dust, mold, pollen and animal dander can cause an asthma attack. Skipping doses of daily asthma medicine can also bring on an asthma attack. Asthma can be controlled using the proper medicines prescribed by your healthcare provider and avoiding exposure to known triggers including allergens and irritants. Home care Take prescribed medicine exactly at the times advised. If you need medicine such as from a hand held inhaler or aerosol breathing machine more than every 4 hours, contact your healthcare provider or seek immediate medical attention. If prescribed an antibiotic or prednisone, take all of the medicine as prescribed, even if you are feeling better after a few days. Don't smoke. Avoid being exposed to the smoke of others. Some people with asthma have worsening of their symptoms when they take aspirin and non-steroidal or fever-reducing medicines like ibuprofen and naproxen. Talk to your healthcare provider if you think this may apply to you. Follow-up care Follow up with your healthcare provider, or as advised. Always bring all of your current medicines to any appointments with your healthcare provider. Also bring a complete list of medicines even those not taken for asthma. If you don't already have one, talk to your healthcare provider about developing your own Asthma Action Plan. A pneumococcal (pneumonia) vaccine and yearly flu shot (every fall) are recommended. Ask your doctor about this. When to seek medical advice Call your healthcare provider right away if any of these occur: Increased wheezing or shortness of breath Need to use your inhalers more often than usual without relief Fever of 100.4 F (38 C) or higher, or as directed by your healthcare provider Coughing up lots of dark-colored or bloody sputum (mucus) Chest pain with each breath If you use a peak flow meter as part of an Asthma Action Plan, and you are still in the yellow zone(50% to 80%) 15 minutes after using inhaler medicine. Call 911 Call 911 if any of the following occur Trouble walking or talking because of shortness of breath If you use a peak flow meter as part of an Asthma Action Plan and you are still in the red zone (less than 50%) 15 minutes after using inhaler medicine Lips or fingernails turning hernandez or blue [id number] [employer]. [address] [place] [address], [place] [address]. All rights reserved. This information is not intended as a substitute for professional medical care. Always follow yourhealthcare professional's instructions. Follow Up Care 10/07/2021 09:34:56 With:JOAQUIN COLON DO Address: [address] [place] [id number] When:2-4 days [facility] 10-26-2021 History of Present illness Narrative* Roosevelt Olivas RT(R) - 09/23/2021 3:10 PM EDT Radiology Service Progress Note PATIENT NAME: Per Farmer DATE OF SERVICE: September 23, 2021 TIME: 3:00 PM PATIENT IDENTITY VERIFICATION COMPLETED USING TWO (2) IDENTIFIERS: Name and Date of confirmedby patient verbally. FALL SCREENING: Has the patient had 2 falls in the last year or 1 fall with injury or currently using an Ambulatory Assistive Device (Walker, Cane, Wheelchair, Crutches, etc.)? No PATIENT GENDER DATA: Female. status: : No status: NO. PATIENT RELEVANT IMPLANT DATA REVIEWED: Not Applicable RADIOLOGY DEPARTMENT: General X-ray: Exam(s) Completed: Chest X-Ray PERIPHERAL IV DATA: Not applicable SIGNED BY: RT Bianca(R) September 23, 2021 3:00 PM documented in this encounterUniversity Hospitals [facility]10-06-2021 NotePROCEDURE DETAILS Preoperative Diagnosis: Pelvic pain Postoperative Diagnosis: Pelvic pain endometriosis Right endometrioma Surgeon: Fred Murphy Resident/Fellow/Other Branch Manager: Lyn Ulloa Procedure: 1. Laparoscopy Diagnostic 2. coagulation of endometriosis 3. Aspiration Right ovarian endometrioma Anesthesia: No anesthesiologist associated with this case Estimated Blood Loss: 30 cc Findings: 3x3 cm right endometioma endometriotic implants Specimens(s) Collected: no, Complications: none Patient Returned To/Condition: RR in good condition Attestation: Note Completion: Attending AttestationI performed the procedure without a resident Electronic Signatures: Fred Murphy) (Signed 03-Sep-2021 12:11) Authored: Post-Operative Note, Chart Review, Note Completion Last Updated: 03-Sep-2021 12:11 by Fred Murphy)[facility]10-06-2021 NoteHistory & Physical Reviewed: /Lactating: Are You no (1) Are You Currently Breastfeedingno (1) I have reviewed the History and Physical dated: 27-Aug-2021 History and Physical reviewed and relevant findings noted. Patient examined to review pertinent physical findings.: No significant changes Home Medications Reviewed: no changes noted Allergies Reviewed: no changes noted ERAS (Enhanced Recovery After Surgery): ERAS Patient: no Consent: COVID-19 Consent: COVID-19 Risk ConsentSurgeon has reviewed garza risks related to the risk of shaggy COVID-19 and if they contract COVID-19 what the risks are. Electronic Signatures: Fred Murphy) (Signed 03-Sep-2021 10:58) Authored: History & Physical Reviewed, ERAS, Consent, Note Completion Last Updated: 03-Sep-2021 10:58 by Fred Murphy) References: 1. Data Referenced From History and Physical - Surgical Update < 30 days 03-Sep-2021 10:39[facility]10-06-[facility] Note History & Physical Reviewed: /Lactating: Are You no (1) Are You Currently Breastfeedingno (1) I have reviewed the History and Physical dated: 26-Sep-2021 History and Physical reviewed and relevant findings noted. Patient examined to review pertinent physical findings.: Significant findings noted below Findings: Vitals signs are stable. HEENT: pupils equal and reactive to light. Extraocular movements normal. Neck: No JVD or bruits. CVS: S1, S2, normal. Lungs: Clear to auscultation bilat. Abdomen is soft, nontender, nondistended with positive bowel sounds. Extremities: No pedal edema. Neurological: Nonfocal. Skin: No rash. Home Medications Reviewed: no changes noted Allergies Reviewed: no changes noted ERAS (Enhanced Recovery After Surgery): ERAS Patient: no Consent: COVID-19 Consent: COVID-19 Risk ConsentSurgeon has reviewed garza risks related to the risk of shaggy COVID-19 and if they contract COVID-19 what the risks are. Electronic Signatures: Yareli Mckay (ROXI) (Signed 03-Sep-2021 10:40) Authored: History & Physical Reviewed, ERAS, Consent, Note Completion Last Updated: 03-Sep-2021 10:40 by Yareli Mckay (PAC) References: 1. Data Referenced From Patient Profile - Preop v2 03-Sep-2021 09:39[facility]06-28[facility] History of Present illness NarrativePatient here with 1 week history of severe lower abdominal pain right sided extending to the back into the shoulder. Pain is variable intermittent 8- 10 out of 10 on occasion. Sharp stabbing pain radiating up her right side to the shoulder. No nausea vomiting fever chills no GI or complaints. Complaining of frequent headaches and diarrhea chart reviewed. Patient notes pain has no inciting factors. Is unrelated to activity. Has not been using anything for treatment. Was seen in the emergency room at [facility]. Ultrasound report reviewed along with labs. Patient is told that she should have her gallbladder removed although nothing indicated on ultrasound. 2 x 2 centimeter area seen on the right ovary possible solid mass versus thick fluid. No previous history noted. Todaypatient continues to complain of some low level pain 6-8 out of 10 seems calm at present.[facility] Work Phone: [phone] NoteAccession #: [id number] Date of Procedure: 05/06/2021 Pathologist: [facility], Cytology Date Reported: 05/15/2021 Date Received: 05/06/2021 Submitting Physician: MANNY DANIEL CNP FINAL CYTOLOGICAL INTERPRETATION A. THINPREP PAP CERVICAL: Specimen adequacy: SATISFACTORY FOR EVALUATION. Quality Indicator: Endocervical/transformation zone component is present. Quality Indicator: Partially obscured by cytolysis. General Categorization: NEGATIVE FOR INTRAEPITHELIAL LESION OR MALIGNANCY. This specimen has been analyzed by the ThinPrep Imaging System ([employer] an automated imaging and review system, which assists the laboratory in evaluating cells on ThinPrep Pap tests. Following automated imaging, selected matthews from every slide were reviewed by a value engineer and/or pathologist. Electronically Signed Out By [facility], Cytology//LHP/SLD By the signature on this report, the individual or group listed as making the Final Interpretation/Diagnosis certifies that they have reviewed this case. Educational Note: Cervical cytology is a screening procedure primarily for squamous cancers and precursors and has associated false-negative and false-positive results as evidenced by published data. Your patient?s test should be interpreted in this context, together with patient?s history and clinical findings. Regular sampling and follow-up of unexplained clinical signs and symptoms are recommended to minimize false negative results. 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 FALL SCREENING: Has the patient had 2 falls in the last year or 1 fall with injury or currently using an Ambulatory Assistive Device (Walker, Cane, Wheelchair, Crutches, etc.)? Yes, Patient High Riskfor Falls What interventions were put in place to prevent falls during this visit? Increased Observations by Caregivers PATIENT GENDER DATA: Female. status: : No status: NO. PATIENT RELEVANT IMPLANT DATA REVIEWED: Not Applicable RADIOLOGY DEPARTMENT: General X-ray: Exam(s) Completed: Lower Extremity X- Ray(s): Ankle, Left and Wt. Bearing: PERIPHERAL IV DATA: Not applicable SIGNED BY: RT Martine February 03, 2021 2:21 PM documented in this encounterUniversity Hospitals [facility]02-24-2021 History of Present illness Narrative* Gaetano Connor)Phillip - 01/22/2021 4:30 PM EST Radiology Service Progress Note PATIENT NAME: Per Farmer DATE OF SERVICE: January 22, 2021 TIME: 4:36 PM PATIENT IDENTITY VERIFICATION COMPLETED USING TWO (2) IDENTIFIERS: Name and Date of confirmedby patient verbally. FALL SCREENING: Has the patient had 2 falls in the last year or 1 fall with injury or currently using an Ambulatory Assistive Device (Walker, Cane, Wheelchair, Crutches, etc.)? Yes, Patient High Riskfor Falls What interventions were put in place to prevent falls during this visit? Increased Observations by Caregivers and Pt. in a wheelchair. PATIENT GENDER DATA: Female. status: : No status: NO. PATIENT RELEVANT IMPLANT DATA REVIEWED: Not Applicable RADIOLOGY DEPARTMENT: General X-ray: Exam(s) Completed: Lower Extremity X- Ray(s): Ankle, Left: PERIPHERAL IV DATA: Not applicable SIGNED BY: RT Jim January 22, 2021 4:36 PM documented in this encounterUniversity Hospitals [facility]03-25-2020 History of Past illness Narrative* Problem Noted Date Resolved Date Seizure-like activity 02/21/2020 02/22/2020 Last Assessment & Plan: Assessment: -Episodes starting age 8, stopped for 10-15 years, recurred in 2018 -Characterized by unresponsiveness, stiffness/shaking, lasting 10-60 mins per pt -Previous 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, dx PNES -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 PRINTING, unclear if for migraine or seizure -Admit for diagnosis -2E 02/20 PLAN: -vEEG -Admission labs: CBC, CMP, UTox,urine hCG -2 mg ativan for seizures >3 mins or >3 seizure in 8 hours -Reduce topamax to 50 mg daily, consider discontinuing while admitted Epilepsy 08/27/2018 08/30/2018 documented as of this encounter (statuses as of 04/09/2022) [facility]03[facility] History of Past illness Narrative* Problem Noted Date Resolved Date Seizure-like activity 02/21/2020 02/22/2020 Last Assessment & Plan: Assessment: -Episodes starting age 8, stopped for 10-15 years, recurred in 2018 -Characterized by unresponsiveness, stiffness/shaking, lasting 10-60 mins per pt -Previous 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, dx PNES -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 PRINTING, unclear if for migraine or seizure -Admit for diagnosis -2E 02/20 PLAN: -vEEG -Admission labs: CBC, CMP, UTox,urine hCG -2 mg ativan for seizures >3 mins or >3 seizure in 8 hours -Reduce topamax to 50 mg daily, consider discontinuing while admitted Epilepsy 08/27/2018 08/30/2018 documented as of this encounter (statuses as of 04/22/2022) [facility] History of Past illness Narrative* Problem Noted Date Resolved Date Seizure-like activity 02/21/2020 02/22/2020 Last Assessment & Plan: Assessment: -Episodes starting age 8, stopped for 10-15 years, recurred in 2018 -Characterized by unresponsiveness, stiffness/shaking, lasting 10-60 mins per pt -Previous 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, dx PNES -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 PRINTING, unclear if for migraine or seizure -Admit for diagnosis -2E 02/20 PLAN: -vEEG -Admission labs: CBC, CMP, UTox,urine hCG -2 mg ativan for seizures >3 mins or >3 seizure in 8 hours -Reduce topamax to 50 mg daily, consider discontinuing while admitted Epilepsy 08/27/2018 08/30/2018 documented as of this encounter (statuses as of 04/23/2022) [facility] History of Past illness Narrative* Problem Noted Date Resolved Date Seizure-like activity 02/21/2020 02/22/2020 Last Assessment & Plan: Assessment: -Episodes starting age 8, stopped for 10-15 years, recurred in 2018 -Characterized by unresponsiveness, stiffness/shaking, lasting 10-60 mins per pt -Previous 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, dx PNES -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 PRINTING, unclear if for migraine or seizure -Admit for diagnosis -2E 02/20 PLAN: -vEEG -Admission labs: CBC, CMP, UTox,urine hCG -2 mg ativan for seizures >3 mins or >3 seizure in 8 hours -Reduce topamax to 50 mg daily, consider discontinuing while admitted Epilepsy 08/27/2018 08/30/2018 documented as of this encounter (statuses as of 04/24/2022) [facility] History of Past illness Narrative* Problem Noted Date Resolved Date Seizure-like activity 02/21/2020 02/22/2020 Last Assessment & Plan: Assessment: -Episodes starting age 8, stopped for 10-15 years, recurred in 2018 -Characterized by unresponsiveness, stiffness/shaking, lasting 10-60 mins per pt -Previous 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, dx PNES -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 PRINTING, unclear if for migraine or seizure -Admit for diagnosis -2E 02/20 PLAN: -vEEG -Admission labs: CBC, CMP, UTox,urine hCG -2 mg ativan for seizures >3 mins or >3 seizure in 8 hours -Reduce topamax to 50 mg daily, consider discontinuing while admitted Epilepsy 08/27/2018 08/30/2018 documented as of this encounter (statuses as of 04/30/2022) [facility] History of Past illness Narrative* Problem Noted Date Resolved Date Seizure-like activity 02/21/2020 02/22/2020 Last Assessment & Plan: Assessment: -Episodes starting age 8, stopped for 10-15 years, recurred in 2018 -Characterized by unresponsiveness, stiffness/shaking, lasting 10-60 mins per pt -Previous 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, dx PNES -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 PRINTING, unclear if for migraine or seizure -Admit for diagnosis -2E 02/20 PLAN: -vEEG -Admission labs: CBC, CMP, UTox,urine hCG -2 mg ativan for seizures >3 mins or >3 seizure in 8 hours -Reduce topamax to 50 mg daily, consider discontinuing while admitted Epilepsy 08/27/2018 08/30/2018 documented as of this encounter (statuses as of 04/30/2022) [facility] History of Past illness Narrative* Problem Noted Date Resolved Date Seizure-like activity 02/21/2020 02/22/2020 Last Assessment & Plan: Assessment: -Episodes starting age 8, stopped for 10-15 years, recurred in 2018 -Characterized by unresponsiveness, stiffness/shaking, lasting 10-60 mins per pt -Previous 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, dx PNES -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 PRINTING, unclear if for migraine or seizure -Admit for diagnosis -2E 02/20 PLAN: -vEEG -Admission labs: CBC, CMP, UTox,urine hCG -2 mg ativan for seizures >3 mins or >3 seizure in 8 hours -Reduce topamax to 50 mg daily, consider discontinuing while admitted Epilepsy 08/27/2018 08/30/2018 documented as of this encounter (statuses as of 05/12/2022) [facility]03-25-2020 History of Past illness Narrative* Problem Noted Date Resolved Date Seizure-like activity 02/21/2020 02/22/2020 Last Assessment & Plan: Assessment: -Episodes starting age 8, stopped for 10-15 years, recurred in 2018 -Characterized by unresponsiveness, stiffness/shaking, lasting 10-60 mins per pt -Previous 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, dx PNES -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 PRINTING, unclear if for migraine or seizure -Admit for diagnosis -2E 02/20 PLAN: -vEEG -Admission labs: CBC, CMP, UTox,urine hCG -2 mg ativan for seizures >3 mins or >3 seizure in 8 hours -Reduce topamax to 50 mg daily, consider discontinuing while admitted Epilepsy 08/27/2018 08/30/2018 documented as of this encounter (statuses as of 05/13/2022) [facility]03-25-2020 History of Past illness Narrative* Problem Noted Date Resolved Date Seizure-like activity 02/21/2020 02/22/2020 Last Assessment & Plan: Assessment: -Episodes starting age 8, stopped for 10-15 years, recurred in 2018 -Characterized by unresponsiveness, stiffness/shaking, lasting 10-60 mins per pt -Previous 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, dx PNES -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 PR[employer]ING, unclear if for migraine or seizure -Admit for diagnosis -2E 02/20 PLAN: -vEEG -Admission labs: CBC, CMP, UTox,urine hCG -2 mg ativan for seizures >3 mins or >3 seizure in 8 hours -Reduce topamax to 50 mg daily, consider discontinuing while admitted Epilepsy 08/27/2018 08/30/2018 documented as of this encounter (statuses as of 05/14/2022) [facility]03-25-2020 History of Past illness Narrative* Problem Noted Date Resolved Date Seizure-like activity 02/21/2020 02/22/2020 Last Assessment & Plan: Assessment: -Episodes starting age 8, stopped for 10-15 years, recurred in 2018 -Characterized by unresponsiveness, stiffness/shaking, lasting 10-60 mins per pt -Previous 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, dx PNES -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 [employer]ING, unclear if for migraine or seizure -Admit for diagnosis -2E 02/20 PLAN: -vEEG -Admission labs: CBC, CMP, UTox,urine hCG -2 mg ativan for seizures >3 mins or >3 seizure in 8 hours -Reduce topamax to 50 mg daily, consider discontinuing while admitted Epilepsy 08/27/2018 08/30/2018 documented as of this encounter (statuses as of 05/26/2022) [facility]03-25-2020 History of Past illness Narrative* Problem Noted Date Resolved Date Seizure-like activity 02/21/2020 02/22/2020 Last Assessment & Plan: Assessment: -Episodes starting age 8, stopped for 10-15 years, recurred in 2018 -Characterized by unresponsiveness, stiffness/shaking, lasting 10-60 mins per pt -Previous 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, dx PNES -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 [employer]ING, unclear if for migraine or seizure -Admit for diagnosis -2E 02/20 PLAN: -vEEG -Admission labs: CBC, CMP, UTox,urine hCG -2 mg ativan for seizures >3 mins or >3 seizure in 8 hours -Reduce topamax to 50 mg daily, consider discontinuing while admitted Epilepsy 08/27/2018 08/30/2018 documented as of this encounter (statuses as of 05/26/2022) [facility]03-25-2020 History of Past illness Narrative* Problem Noted Date Resolved Date Seizure-like activity 02/21/2020 02/22/2020 Last Assessment & Plan: Assessment: -Episodes starting age 8, stopped for 10-15 years, recurred in 2018 -Characterized by unresponsiveness, stiffness/shaking, lasting 10-60 mins per pt -Previous 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, dx PNES -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 [employer]ING, unclear if for migraine or seizure -Admit for diagnosis -2E 02/20 PLAN: -vEEG -Admission labs: CBC, CMP, UTox,urine hCG -2 mg ativan for seizures >3 mins or >3 seizure in 8 hours -Reduce topamax to 50 mg daily, consider discontinuing while admitted Epilepsy 08/27/2018 08/30/2018 documented as of this encounter (statuses as of 06/04/2022) [facility]03-25-2020 History of Past illness Narrative* Problem Noted Date Resolved Date Seizure-like activity 02/21/2020 02/22/2020 Last Assessment & Plan: Assessment: -Episodes starting age 8, stopped for 10-15 years, recurred in 2018 -Characterized by unresponsiveness, stiffness/shaking, lasting 10-60 mins per pt -Previous 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, dx PNES -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 [employer]ING, unclear if for migraine or seizure -Admit for diagnosis -2E 02/20 PLAN: -vEEG -Admission labs: CBC, CMP, UTox,urine hCG -2 mg ativan for seizures >3 mins or >3 seizure in 8 hours -Reduce topamax to 50 mg daily, consider discontinuing while admitted Epilepsy 08/27/2018 08/30/2018 documented as of this encounter (statuses as of 06/08/2022) [facility]03-25-2020 History of Past illness Narrative* Problem Noted Date Resolved Date Seizure-like activity 02/21/2020 02/22/2020 Last Assessment & Plan: Assessment: -Episodes starting age 8, stopped for 10-15 years, recurred in 2018 -Characterized by unresponsiveness, stiffness/shaking, lasting 10-60 mins per pt -Previous 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, dx PNES -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ING, unclear if for migraine or seizure -Admit for diagnosis -2E 02/20 PLAN: -vEEG -Admission labs: CBC, CMP, UTox,urine hCG -2 mg ativan for seizures >3 mins or >3 seizure in 8 hours -Reduce topamax to 50 mg daily, consider discontinuing while admitted Epilepsy 08/27/2018 08/30/2018 documented as of this encounter (statuses as of 06/09/2022) [facility]03-25-2020 History of Past illness Narrative* Problem Noted Date Resolved Date Seizure-like activity 02/21/2020 02/22/2020 Last Assessment & Plan: Assessment: -Episodes starting age 8, stopped for 10-15 years, recurred in 2018 -Characterized by unresponsiveness, stiffness/shaking, lasting 10-60 mins per pt -Previous 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, dx PNES -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ING, unclear if for migraine or seizure -Admit for diagnosis -2E 02/20 PLAN: -vEEG -Admission labs: CBC, CMP, UTox,urine hCG -2 mg ativan for seizures >3 mins or >3 seizure in 8 hours -Reduce topamax to 50 mg daily, consider discontinuing while admitted Epilepsy 08/27/2018 08/30/2018 documented as of this encounter (statuses as of 06/29/2022) [facility]03-25-2020 History of Past illness Narrative* Problem Noted Date Resolved Date Seizure-like activity 02/21/2020 02/22/2020 Last Assessment & Plan: Assessment: -Episodes starting age 8, stopped for 10-15 years, recurred in 2018 -Characterized by unresponsiveness, stiffness/shaking, lasting 10-60 mins per pt -Previous 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, dx PNES -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, unclear if for migraine or seizure -Admit for diagnosis -2E 02/20 PLAN: -vEEG -Admission labs: CBC, CMP, UTox,urine hCG -2 mg ativan for seizures >3 mins or >3 seizure in 8 hours -Reduce topamax to 50 mg daily, consider discontinuing while admitted Epilepsy 08/27/2018 08/30/2018 documented as of this encounter (statuses as of 07/06/2022) [facility]03-25-2020 History of Past illness Narrative* Problem Noted Date Resolved Date Seizure-like activity 02/21/2020 02/22/2020 Last Assessment & Plan: Assessment: -Episodes starting age 8, stopped for 10-15 years, recurred in 2018 -Characterized by unresponsiveness, stiffness/shaking, lasting 10-60 mins per pt -Previous 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, dx PNES -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, unclear if for migraine or seizure -Admit for diagnosis -2E 02/20 PLAN: -vEEG -Admission labs: CBC, CMP, UTox,urine hCG -2 mg ativan for seizures >3 mins or >3 seizure in 8 hours -Reduce topamax to 50 mg daily, consider discontinuing while admitted Epilepsy 08/27/2018 08/30/2018 documented as of this encounter (statuses as of 07/07/2022) [facility]03-25-2020 History of Past illness Narrative* Problem Noted Date Resolved Date Seizure-like activity 02/21/2020 02/22/2020 Last Assessment & Plan: Assessment: -Episodes starting age 8, stopped for 10-15 years, recurred in 2018 -Characterized by unresponsiveness, stiffness/shaking, lasting 10-60 mins per pt -Previous 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, dx PNES -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 [employer]ING, unclear if for migraine or seizure -Admit for diagnosis -2E 02/20 PLAN: -vEEG -Admission labs: CBC, CMP, UTox,urine hCG -2 mg ativan for seizures >3 mins or >3 seizure in 8 hours -Reduce topamax to 50 mg daily, consider discontinuing while admitted Epilepsy 08/27/2018 08/30/2018 documented as of this encounter (statuses as of 07/16/2022) [facility]03-25-2020 History of Past illness Narrative* Problem Noted Date Resolved Date Seizure-like activity 02/21/2020 02/22/2020 Last Assessment & Plan: Assessment: -Episodes starting age 8, stopped for 10-15 years, recurred in 2018 -Characterized by unresponsiveness, stiffness/shaking, lasting 10-60 mins per pt -Previous 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, dx PNES -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 [employer]ING, unclear if for migraine or seizure -Admit for diagnosis -2E 02/20 PLAN: -vEEG -Admission labs: CBC, CMP, UTox,urine hCG -2 mg ativan for seizures >3 mins or >3 seizure in 8 hours -Reduce topamax to 50 mg daily, consider discontinuing while admitted Epilepsy 08/27/2018 08/30/2018 documented as of this encounter (statuses as of 07/17/2022) [facility]03-25-2020 History of Past illness Narrative* Problem Noted Date Resolved Date Seizure-like activity 02/21/2020 02/22/2020 Last Assessment & Plan: Assessment: -Episodes starting age 8, stopped for 10-15 years, recurred in 2018 -Characterized by unresponsiveness, stiffness/shaking, lasting 10-60 mins per pt -Previous 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, dx PNES -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 [employer]ING, unclear if for migraine or seizure -Admit for diagnosis -2E 02/20 PLAN: -vEEG -Admission labs: CBC, CMP, UTox,urine hCG -2 mg ativan for seizures >3 mins or >3 seizure in 8 hours -Reduce topamax to 50 mg daily, consider discontinuing while admitted Epilepsy 08/27/2018 08/30/2018 documented as of this encounter (statuses as of 07/22/2022) [facility]03-25-2020 History of Past illness Narrative* Problem Noted Date Resolved Date Seizure-like activity 02/21/2020 02/22/2020 Last Assessment & Plan: Assessment: -Episodes starting age 8, stopped for 10-15 years, recurred in 2018 -Characterized by unresponsiveness, stiffness/shaking, lasting 10-60 mins per pt -Previous 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, dx PNES -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 [employer]ING, unclear if for migraine or seizure -Admit for diagnosis -2E 02/20 PLAN: -vEEG -Admission labs: CBC, CMP, UTox,urine hCG -2 mg ativan for seizures >3 mins or >3 seizure in 8 hours -Reduce topamax to 50 mg daily, consider discontinuing while admitted Epilepsy 08/27/2018 08/30/2018 documented as of this encounter (statuses as of 07/22/2022) [facility]03-25-2020 History of Past illness Narrative* Problem Noted Date Resolved Date Seizure-like activity 02/21/2020 02/22/2020 Last Assessment & Plan: Assessment: -Episodes starting age 8, stopped for 10-15 years, recurred in 2018 -Characterized by unresponsiveness, stiffness/shaking, lasting 10-60 mins per pt -Previous 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, dx PNES -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 [employer]ING, unclear if for migraine or seizure -Admit for diagnosis -2E 02/20 PLAN: -vEEG -Admission labs: CBC, CMP, UTox,urine hCG -2 mg ativan for seizures >3 mins or >3 seizure in 8 hours -Reduce topamax to 50 mg daily, consider discontinuing while admitted Epilepsy 08/27/2018 08/30/2018 documented as of this encounter (statuses as of 07/31/2022) [facility]03-25-2020 History of Past illness Narrative* Problem Noted Date Resolved Date Seizure-like activity 02/21/2020 02/22/2020 Last Assessment & Plan: Assessment: -Episodes starting age 8, stopped for 10-15 years, recurred in 2018 -Characterized by unresponsiveness, stiffness/shaking, lasting 10-60 mins per pt -Previous 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, dx PNES -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 PR[employer]ING, unclear if for migraine or seizure -Admit for diagnosis -2E 02/20 PLAN: -vEEG -Admission labs: CBC, CMP, UTox,urine hCG -2 mg ativan for seizures >3 mins or >3 seizure in 8 hours -Reduce topamax to 50 mg daily, consider discontinuing while admitted Epilepsy 08/27/2018 08/30/2018 documented as of this encounter (statuses as of 09/05/2022) [facility]03-25-2020 History of Past illness Narrative* Problem Noted Date Resolved Date Seizure-like activity 02/21/2020 02/22/2020 Last Assessment & Plan: Assessment: -Episodes starting age 8, stopped for 10-15 years, recurred in 2018 -Characterized by unresponsiveness, stiffness/shaking, lasting 10-60 mins per pt -Previous 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, dx PNES -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 [employer]ING, unclear if for migraine or seizure -Admit for diagnosis -2E 02/20 PLAN: -vEEG -Admission labs: CBC, CMP, UTox,urine hCG -2 mg ativan for seizures >3 mins or >3 seizure in 8 hours -Reduce topamax to 50 mg daily, consider discontinuing while admitted Epilepsy 08/27/2018 08/30/2018 documented as of this encounter (statuses as of 09/07/2022) [facility]03-25[facility]2020 History of Past illness Narrative* Problem Noted Date Resolved Date Seizure-like activity 02/21/2020 02/22/2020 Last Assessment & Plan: Assessment: -Episodes starting age 8, stopped for 10-15 years, recurred in 2018 -Characterized by unresponsiveness, stiffness/shaking, lasting 10-60 mins per pt -Previous 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, dx PNES -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 PR[employer]ING, unclear if for migraine or seizure -Admit for diagnosis -2E 02/20 PLAN: -vEEG -Admission labs: CBC, CMP, UTox,urine hCG -2 mg ativan for seizures >3 mins or >3 seizure in 8 hours -Reduce topamax to 50 mg daily, consider discontinuing while admitted Epilepsy 08/27/2018 08/30/2018 documented as of this encounter (statuses as of 09/18/2022) [facility]03-25-2020 History of Past illness Narrative* Problem Noted Date Resolved Date Seizure-like activity 02/21/2020 02/22/2020 Last Assessment & Plan: Assessment: -Episodes starting age 8, stopped for 10-15 years, recurred in 2018 -Characterized by unresponsiveness, stiffness/shaking, lasting 10-60 mins per pt -Previous 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, dx PNES -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 PR[employer]ING, unclear if for migraine or seizure -Admit for diagnosis -2E 02/20 PLAN: -vEEG -Admission labs: CBC, CMP, UTox,urine hCG -2 mg ativan for seizures >3 mins or >3 seizure in 8 hours -Reduce topamax to 50 mg daily, consider discontinuing while admitted Epilepsy 08/27/2018 08/30/2018 documented as of this encounter (statuses as of 09/28/2022) [facility]03-25[facility]2020 History of Past illness Narrative* Problem Noted Date Resolved Date Seizure-like activity 02/21/2020 02/22/2020 Last Assessment & Plan: Assessment: -Episodes starting age 8, stopped for 10-15 years, recurred in 2018 -Characterized by unresponsiveness, stiffness/shaking, lasting 10-60 mins per pt -Previous 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, dx PNES -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 PR[employer]ING, unclear if for migraine or seizure -Admit for diagnosis -2E 02/20 PLAN: -vEEG -Admission labs: CBC, CMP, UTox,urine hCG -2 mg ativan for seizures >3 mins or >3 seizure in 8 hours -Reduce topamax to 50 mg daily, consider discontinuing while admitted Epilepsy 08/27/2018 08/30/2018 documented as of this encounter (statuses as of 10/01/2022) [facility]03[facility]2020 History of Past illness Narrative* Problem Noted Date Resolved Date Seizure-like activity 02/21/2020 02/22/2020 Last Assessment & Plan: Assessment: -Episodes starting age 8, stopped for 10-15 years, recurred in 2018 -Characterized by unresponsiveness, stiffness/shaking, lasting 10-60 mins per pt -Previous 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, dx PNES -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 PRINTING, unclear if for migraine or seizure -Admit for diagnosis -2E 02/20 PLAN: -vEEG -Admission labs: CBC, CMP, UTox,urine hCG -2 mg ativan for seizures >3 mins or >3 seizure in 8 hours -Reduce topamax to 50 mg daily, consider discontinuing while admitted Epilepsy 08/27/2018 08/30/2018 documented as of this encounter (statuses as of 10/13/2022) [facility]03[facility]2020 History of Past illness Narrative* Problem Noted Date Resolved Date Seizure-like activity 02/21/2020 02/22/2020 Last Assessment & Plan: Assessment: -Episodes starting age 8, stopped for 10-15 years, recurred in 2018 -Characterized by unresponsiveness, stiffness/shaking, lasting 10-60 mins per pt -Previous 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, dx PNES -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 PR[employer]ING, unclear if for migraine or seizure -Admit for diagnosis -2E 02/20 PLAN: -vEEG -Admission labs: CBC, CMP, UTox,urine hCG -2 mg ativan for seizures >3 mins or >3 seizure in 8 hours -Reduce topamax to 50 mg daily, consider discontinuing while admitted Epilepsy 08/27/2018 08/30/2018 documented as of this encounter (statuses as of 10/28/2022) [facility]03[facility]2020 History of Past illness Narrative* Problem Noted Date Resolved Date Seizure-like activity 02/21/2020 02/22/2020 Last Assessment & Plan: Assessment: -Episodes starting age 8, stopped for 10-15 years, recurred in 2018 -Characterized by unresponsiveness, stiffness/shaking, lasting 10-60 mins per pt -Previous 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, dx PNES -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 PRINTING, unclear if for migraine or seizure -Admit for diagnosis -2E 02/20 PLAN: -vEEG -Admission labs: CBC, CMP, UTox,urine hCG -2 mg ativan for seizures >3 mins or >3 seizure in 8 hours -Reduce topamax to 50 mg daily, consider discontinuing while admitted Epilepsy 08/27/2018 08/30/2018 documented as of this encounter (statuses as of 11/10/2022) [facility]03[facility]2020 History of Past illness Narrative* Problem Noted Date Resolved Date Seizure-like activity 02/21/2020 02/22/2020 Last Assessment & Plan: Assessment: -Episodes starting age 8, stopped for 10-15 years, recurred in 2018 -Characterized by unresponsiveness, stiffness/shaking, lasting 10-60 mins per pt -Previous 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, dx PNES -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 PRINTING, unclear if for migraine or seizure -Admit for diagnosis -2E 02/20 PLAN: -vEEG -Admission labs: CBC, CMP, UTox,urine hCG -2 mg ativan for seizures >3 mins or >3 seizure in 8 hours -Reduce topamax to 50 mg daily, consider discontinuing while admitted Epilepsy 08/27/2018 08/30/2018 documented as of this encounter (statuses as of 11/22/2022) [facility]2020 History of Past illness Narrative* Problem Noted Date Resolved Date Seizure-like activity 02/21/2020 02/22/2020 Last Assessment & Plan: Assessment: -Episodes starting age 8, stopped for 10-15 years, recurred in 2018 -Characterized by unresponsiveness, stiffness/shaking, lasting 10-60 mins per pt -Previous 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, dx PNES -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 PR[employer]ING, unclear if for migraine or seizure -Admit for diagnosis -2E 02/20 PLAN: -vEEG -Admission labs: CBC, CMP, UTox,urine hCG -2 mg ativan for seizures >3 mins or >3 seizure in 8 hours -Reduce topamax to 50 mg daily, consider discontinuing while admitted Epilepsy 08/27/2018 08/30/2018 documented as of this encounter (statuses as of 11/30/2022) [facility]2020 History of Past illness Narrative* Problem Noted Date Resolved Date Seizure-like activity 02/21/2020 02/22/2020 Last Assessment & Plan: Assessment: -Episodes starting age 8, stopped for 10-15 years, recurred in 2018 -Characterized by unresponsiveness, stiffness/shaking, lasting 10-60 mins per pt -Previous 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, dx PNES -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 PRINTING, unclear if for migraine or seizure -Admit for diagnosis -2E 02/20 PLAN: -vEEG -Admission labs: CBC, CMP, UTox,urine hCG -2 mg ativan for seizures >3 mins or >3 seizure in 8 hours -Reduce topamax to 50 mg daily, consider discontinuing while admitted Epilepsy 08/27/2018 08/30/2018 documented as of this encounter (statuses as of 12/02/2022) [facility]2020 History of Past illness Narrative* Problem Noted Date Resolved Date Seizure-like activity 02/21/2020 02/22/2020 Last Assessment & Plan: Assessment: -Episodes starting age 8, stopped for 10-15 years, recurred in 2018 -Characterized by unresponsiveness, stiffness/shaking, lasting 10-60 mins per pt -Previous 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, dx PNES -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 PRINTING, unclear if for migraine or seizure -Admit for diagnosis -2E 02/20 PLAN: -vEEG -Admission labs: CBC, CMP, UTox,urine hCG -2 mg ativan for seizures >3 mins or >3 seizure in 8 hours -Reduce topamax to 50 mg daily, consider discontinuing while admitted Epilepsy 08/27/2018 08/30/2018 documented as of this encounter (statuses as of 12/18/2022) [facility] History of Past illness Narrative* Problem Noted Date Resolved Date Seizure-like activity 02/21/2020 02/22/2020 Last Assessment & Plan: Assessment: -Episodes starting age 8, stopped for 10-15 years, recurred in 2018 -Characterized by unresponsiveness, stiffness/shaking, lasting 10-60 mins per pt -Previous 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, dx PNES -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, unclear if for migraine or seizure -Admit for diagnosis -2E 02/20 PLAN: -vEEG -Admission labs: CBC, CMP, UTox,urine hCG -2 mg ativan for seizures >3 mins or >3 seizure in 8 hours -Reduce topamax to 50 mg daily, consider discontinuing while admitted Epilepsy 08/27/2018 08/30/2018 documented as of this encounter (statuses as of 12/24/2022) [facility] History of Past illness Narrative* Problem Noted Date Resolved Date Seizure-like activity 02/21/2020 02/22/2020 Last Assessment & Plan: Assessment: -Episodes starting age 8, stopped for 10-15 years, recurred in 2018 -Characterized by unresponsiveness, stiffness/shaking, lasting 10-60 mins per pt -Previous 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, dx PNES -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 PR[employer]ING, unclear if for migraine or seizure -Admit for diagnosis -2E 02/20 PLAN: -vEEG -Admission labs: CBC, CMP, UTox,urine hCG -2 mg ativan for seizures >3 mins or >3 seizure in 8 hours -Reduce topamax to 50 mg daily, consider discontinuing while admitted Epilepsy 08/27/2018 08/30/2018 documented as of this encounter (statuses as of 12/28/2022) [facility] History of Past illness Narrative* Problem Noted Date Resolved Date Seizure-like activity 02/21/2020 02/22/2020 Last Assessment & Plan: Assessment: -Episodes starting age 8, stopped for 10-15 years, recurred in 2018 -Characterized by unresponsiveness, stiffness/shaking, lasting 10-60 mins per pt -Previous 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, dx PNES -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 PRINTING, unclear if for migraine or seizure -Admit for diagnosis -2E 02/20 PLAN: -vEEG -Admission labs: CBC, CMP, UTox,urine hCG -2 mg ativan for seizures >3 mins or >3 seizure in 8 hours -Reduce topamax to 50 mg daily, consider discontinuing while admitted Epilepsy 08/27/2018 08/30/2018 documented as of this encounter (statuses as of 01/19/2023) [facility] History of Past illness Narrative* Problem Noted Date Resolved Date Seizure-like activity 02/21/2020 02/22/2020 Last Assessment & Plan: Assessment: -Episodes starting age 8, stopped for 10-15 years, recurred in 2018 -Characterized by unresponsiveness, stiffness/shaking, lasting 10-60 mins per pt -Previous 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, dx PNES -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 [employer]INTING, unclear if for migraine or seizure -Admit for diagnosis -2E 02/20 PLAN: -vEEG -Admission labs: CBC, CMP, UTox,urine hCG -2 mg ativan for seizures >3 mins or >3 seizure in 8 hours -Reduce topamax to 50 mg daily, consider discontinuing while admitted Epilepsy 08/27/2018 08/30/2018 documented as of this encounter (statuses as of 03/01/2023) [facility] History of Past illness Narrative* Problem Noted Date Diagnosed Date Resolved Date Seizure-like activity 02/21/20202019 Last Assessment & Plan: Assessment: -Episodes starting age 8, stopped for 10-15 years, recurred in 2018 -Characterized by unresponsiveness, stiffness/shaking, lasting 10-60 mins per pt -Previous 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, dx PNES -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ING, unclear if for migraine or seizure -Admit for diagnosis -2E 02/20 PLAN: -vEEG -Admission labs: CBC, CMP, UTox,urine hCG -2 mg ativan for seizures >3 mins or >3 seizure in 8 hours -Reduce topamax to 50 mg daily, consider discontinuing while admitted Epilepsy 08/27/2018 08/30/2018 documented as of this encounter (statuses as of 08/12/2023) [facility] History of Past illness Narrative* Problem Noted Date Diagnosed Date Resolved Date Seizure-like activity 02/21/20202019 Last Assessment & Plan: Assessment: -Episodes starting age 8, stopped for 10-15 years, recurred in 2018 -Characterized by unresponsiveness, stiffness/shaking, lasting 10-60 mins per pt -Previous 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, dx PNES -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ING, unclear if for migraine or seizure -Admit for diagnosis -2E 02/20 PLAN: -vEEG -Admission labs: CBC, CMP, UTox,urine hCG -2 mg ativan for seizures >3 mins or >3 seizure in 8 hours -Reduce topamax to 50 mg daily, consider discontinuing while admitted Epilepsy 08/27/2018 08/30/2018 documented as of this encounter (statuses as of 08/13/2023) [facility] No data available for this section [facility] Evaluation note* Diagnosis Diarrhea, unspecified type- Primary Abdominal cramping Abdominal pain, unspecified site Right upper quadrant pain Abdominal pain, right upper quadrant documented in this encounter [facility] noteNo assessment information availableWAd[facility] Work Phone: Evaluation note* Diagnosis Acute pain of right shoulder- Primary [facility] Diagnosis Acute pain of right shoulder [facility]* Diagnosis Encounter for management and injection of depo-Provera- Primary Surveillance of other previously prescribed contraceptive method [facility] Diagnosis Acute pain of right shoulder- Primary [facility] Diagnosis Acute pain of right shoulder- Primary [facility] Diagnosis Acute pain of right shoulder- Primary [facility] Diagnosis Acute pain of right shoulder- Primary [facility] Diagnosis Tail bone pain- Primary Other disorder of coccyx [facility] Diagnosis Acute pain of right shoulder- Primary [facility] Diagnosis Acute pain of right shoulder- Primary [facility]* Diagnosis Eyelid disorder- Primary Unspecified disorder of eyelid Right elbow pain Pain in joint, upper arm Paresthesia Disturbance of skin sensation [facility]* Diagnosis RUQ abdominal pain Abdominal pain, right upper quadrant Loose stools Abnormal feces [facility]* Diagnosis Leg weakness, bilateral- Primary Other musculoskeletal symptoms referable to limbs Paresthesia Disturbance of skin sensation Right arm numbness Disturbance of skin sensation Lower extremity numbness Disturbance of skin sensation [facility] Diagnosis Nausea Nausea alone [facility] Encounter for gynecological examination (general) (routine) without abnormal findings- Primary Screening for cervical cancer Screening for malignant neoplasm of the cervix Encounter for screening for human papillomavirus (HPV) Special screening examination for human papillomavirus (HPV) Encounter for prescription for depo-Provera Surveillance of other previously prescribed contraceptive method Screen for STD (sexually transmitted disease) Screening examination for venereal disease [facility] Diagnosis RUQ pain- Primary Abdominal pain, right upper quadrant Diarrhea, unspecified type [facility] Diagnosis Upper respiratory symptom- Primary Other symptoms involving respiratory system and chest Diarrhea, unspecified type Right lower quadrant abdominal pain Abdominal pain, right lower quadrant [facility]* Diagnosis Bronchitis Bronchitis, not specified as acute or chronic [facility] Diagnosis Pain in right arm- Primary Paresthesia Disturbance of skin sensation Leg weakness, bilateral Other musculoskeletal symptoms referable to limbs Right arm numbness Disturbance of skin sensation Lower extremity numbness Disturbance of skin sensation Pain in right leg Paresthesia of skin Disturbance of skin sensation [facility] Diagnosis Chronic right shoulder pain- Primary Pain in joint, shoulder region Chronic neck pain Cervicalgia Prediabetes Other abnormal glucose [facility] Diagnosis Breast pain- Primary Mastodynia [facility]* Diagnosis Viral URI with cough- Primary Acute upper respiratory infections of unspecified site Otalgia of right ear Otalgia, unspecified [facility]* Diagnosis Biliary colic- Primary Calculus of gallbladder without mention of cholecystitis or obstruction [facility] Diagnosis Persistent asthma without complication, unspecified asthma severity- Primary Depression, unspecified depression type Biliary colic Calculus of gallbladder without mention of cholecystitis or obstruction [facility] Diagnosis Mild intermittent asthma without complication- Primary Unspecified asthma Biliary colic Calculus of gallbladder without mention of cholecystitis or obstruction [facility]* Diagnosis Pre-op exam [Z01.818 (ICD-10-CM)]- Primary Preoperative examination, unspecified Gastroesophageal reflux disease, unspecified whether esophagitis present Mild intermittent asthma without complication Unspecified asthma Intractable migraine without status migrainosus, unspecified migraine type Nicotine use disorder, F17.2 Tobacco use disorder Iron deficiency anemia, unspecified iron deficiency anemia type Psychogenic nonepileptic seizure Biliary colic Calculus of gallbladder without mention of cholecystitis or obstruction Biliary colic Calculus of gallbladder without mention of cholecystitis or obstruction [facility]* Diagnosis Encounter for management and injection of depo-Provera- Primary Surveillance of other previously prescribed contraceptive method Biliary colic Calculus of gallbladder without mention of cholecystitis or obstruction documented in this encounter [facility] note* Diagnosis S/P cholecystectomy- Primary Other acquired absence of organ [facility]* Diagnosis Folic acid deficiency Other B-complex deficiencies documented in this encounter [facility] note* Diagnosis Prediabetes Other abnormal glucose [facility]* Diagnosis Prediabetes Other abnormal glucose documented in this encounter [facility] note* Diagnosis 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 Seizure-like activity (HCC) Other convulsions Depression Depressive disorder, not elsewhere classified Pre-operative examination- Primary Preoperative examination, unspecified Altered bowel habits Other symptoms involving digestive system Nicotine use disorder, F17.2 Tobacco use disorder Mild intermittent asthma without complication Unspecified asthma Intractable migraine without status migrainosus, unspecified migraine type Psychogenic nonepileptic seizure PTSD (post-traumatic stress disorder) Posttraumatic stress disorder Gastroesophageal reflux disease, esophagitis presence not specified Hearing impaired person, bilateral Iron deficiency anemia, unspecified iron deficiency anemia type Bronchitis Bronchitis, not specified as acute or chronic Pre-op exam [Z01.818 (ICD-10-CM)]- Primary Preoperative examination, unspecified Gastroesophageal reflux disease, unspecified whether esophagitis present Mild intermittent asthma without complication Unspecified asthma Intractable migraine without status migrainosus, unspecified migraine type Nicotine use disorder, F17.2 Tobacco use disorder Iron deficiency anemia, unspecified iron deficiency anemia type Psychogenic nonepileptic seizure Biliary colic Calculus of gallbladder without mention of cholecystitis or obstruction documented in this encounter [facility] note* Diagnosis 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 Seizure-like activity (HCC) Other convulsions Depression Depressive disorder, not elsewhere classified Pre-operative examination- Primary Preoperative examination, unspecified Altered bowel habits Other symptoms involving digestive system Nicotine use disorder, F17.2 Tobacco use disorder Mild intermittent asthma without complication Unspecified asthma Intractable migraine without status migrainosus, unspecified migraine type Psychogenic nonepileptic seizure PTSD (post-traumatic stress disorder) Posttraumatic stress disorder Gastroesophageal reflux disease, esophagitis presence not specified Hearing impaired person, bilateral Iron deficiency anemia, unspecified iron deficiency anemia type Right elbow pain Pain in joint, upper arm Pre-op exam [Z01.818 (ICD-10-CM)]- Primary Preoperative examination, unspecified Gastroesophageal reflux disease, unspecified whether esophagitis present Mild intermittent asthma without complication Unspecified asthma Intractable migraine without status migrainosus, unspecified migraine type Nicotine use disorder, F17.2 Tobacco use disorder Iron deficiency anemia, unspecified iron deficiency anemia type Psychogenic nonepileptic seizure Biliary colic Calculus of gallbladder without mention of cholecystitis or obstruction documented in this encounter [facility] note* Diagnosis 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 Seizure-like activity (HCC) Other convulsions Depression Depressive disorder, not elsewhere classified Pre-operative examination- Primary Preoperative examination, unspecified Altered bowel habits Other symptoms involving digestive system Nicotine use disorder, F17.2 Tobacco use disorder Mild intermittent asthma without complication Unspecified asthma Intractable migraine without status migrainosus, unspecified migraine type Psychogenic nonepileptic seizure PTSD (post-traumatic stress disorder) Posttraumatic stress disorder Gastroesophageal reflux disease, esophagitis presence not specified Hearing impaired person, bilateral Iron deficiency anemia, unspecified iron deficiency anemia type Leg weakness, bilateral Other musculoskeletal symptoms referable to limbs Lower extremity numbness Disturbance of skin sensation Pre-op exam [Z01.818 (ICD-10-CM)]- Primary Preoperative examination, unspecified Gastroesophageal reflux disease, unspecified whether esophagitis present Mild intermittent asthma without complication Unspecified asthma Intractable migraine without status migrainosus, unspecified migraine type Nicotine use disorder, F17.2 Tobacco use disorder Iron deficiency anemia, unspecified iron deficiency anemia type Psychogenic nonepileptic seizure Biliary colic Calculus of gallbladder without mention of cholecystitis or obstruction documented in this encounter [facility] note* Diagnosis 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 Seizure-like activity (HCC) Other convulsions Depression Depressive disorder, not elsewhere classified Pre-operative examination- Primary Preoperative examination, unspecified Altered bowel habits Other symptoms involving digestive system Nicotine use disorder, F17.2 Tobacco use disorder Mild intermittent asthma without complication Unspecified asthma Intractable migraine without status migrainosus, unspecified migraine type Psychogenic nonepileptic seizure PTSD (post-traumatic stress disorder) Posttraumatic stress disorder Gastroesophageal reflux disease, esophagitis presence not specified Hearing impaired person, bilateral Iron deficiency anemia, unspecified iron deficiency anemia type Acute pain of right shoulder Pre-op exam [Z01.818 (ICD-10-CM)]- Primary Preoperative examination, unspecified Gastroesophageal reflux disease, unspecified whether esophagitis present Mild intermittent asthma without complication Unspecified asthma Intractable migraine without status migrainosus, unspecified migraine type Nicotine use disorder, F17.2 Tobacco use disorder Iron deficiency anemia, unspecified iron deficiency anemia type Psychogenic nonepileptic seizure Biliary colic Calculus of gallbladder without mention of cholecystitis or obstruction [facility]* Diagnosis 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 Seizure-like activity (HCC) Other convulsions Depression Depressive disorder, not elsewhere classified Pre-operative examination- Primary Preoperative examination, unspecified Altered bowel habits Other symptoms involving digestive system Nicotine use disorder, F17.2 Tobacco use disorder Mild intermittent asthma without complication Unspecified asthma Intractable migraine without status migrainosus, unspecified migraine type Psychogenic nonepileptic seizure PTSD (post-traumatic stress disorder) Posttraumatic stress disorder Gastroesophageal reflux disease, esophagitis presence not specified Hearing impaired person, bilateral Iron deficiency anemia, unspecified iron deficiency anemia type Suspected COVID-19 virus infection Pre-op exam [Z01.818 (ICD-10-CM)]- Primary Preoperative examination, unspecified Gastroesophageal reflux disease, unspecified whether esophagitis present Mild intermittent asthma without complication Unspecified asthma Intractable migraine without status migrainosus, unspecified migraine type Nicotine use disorder, F17.2 Tobacco use disorder Iron deficiency anemia, unspecified iron deficiency anemia type Psychogenic nonepileptic seizure Biliary colic Calculus of gallbladder without mention of cholecystitis or obstruction [facility]* Diagnosis 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 Seizure-like activity (HCC) Other convulsions Depression Depressive disorder, not elsewhere classified Pre-operative examination- Primary Preoperative examination, unspecified Altered bowel habits Other symptoms involving digestive system Nicotine use disorder, F17.2 Tobacco use disorder Mild intermittent asthma without complication Unspecified asthma Intractable migraine without status migrainosus, unspecified migraine type Psychogenic nonepileptic seizure PTSD (post-traumatic stress disorder) Posttraumatic stress disorder Gastroesophageal reflux disease, esophagitis presence not specified Hearing impaired person, bilateral Iron deficiency anemia, unspecified iron deficiency anemia type Sprain of ligament of left ankle, subsequent encounter Pre-op exam [Z01.818 (ICD-10-CM)]- Primary Preoperative examination, unspecified Gastroesophageal reflux disease, unspecified whether esophagitis present Mild intermittent asthma without complication Unspecified asthma Intractable migraine without status migrainosus, unspecified migraine type Nicotine use disorder, F17.2 Tobacco use disorder Iron deficiency anemia, unspecified iron deficiency anemia type Psychogenic nonepileptic seizure Biliary colic Calculus of gallbladder without mention of cholecystitis or obstruction documented in this encounter [facility] note* Diagnosis 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 Seizure-like activity (HCC) Other convulsions Depression Depressive disorder, not elsewhere classified Pre-operative examination- Primary Preoperative examination, unspecified Altered bowel habits Other symptoms involving digestive system Nicotine use disorder, F17.2 Tobacco use disorder Mild intermittent asthma without complication Unspecified asthma Intractable migraine without status migrainosus, unspecified migraine type Psychogenic nonepileptic seizure PTSD (post-traumatic stress disorder) Posttraumatic stress disorder Gastroesophageal reflux disease, esophagitis presence not specified Hearing impaired person, bilateral Iron deficiency anemia, unspecified iron deficiency anemia type Sprain of ligament of left ankle, subsequent encounter Pre-op exam [Z01.818 (ICD-10-CM)]- Primary Preoperative examination, unspecified Gastroesophageal reflux disease, unspecified whether esophagitis present Mild intermittent asthma without complication Unspecified asthma Intractable migraine without status migrainosus, unspecified migraine type Nicotine use disorder, F17.2 Tobacco use disorder Iron deficiency anemia, unspecified iron deficiency anemia type Psychogenic nonepileptic seizure Biliary colic Calculus of gallbladder without mention of cholecystitis or obstruction [facility] Diagnosis 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 Seizure-like activity (HCC) Other convulsions Depression Depressive disorder, not elsewhere classified Pre-operative examination- Primary Preoperative examination, unspecified Altered bowel habits Other symptoms involving digestive system Nicotine use disorder, F17.2 Tobacco use disorder Mild intermittent asthma without complication (HCC) Unspecified asthma Intractable migraine without status migrainosus, unspecified migraine type Psychogenic nonepileptic seizure PTSD (post-traumatic stress disorder) Posttraumatic stress disorder Gastroesophageal reflux disease, esophagitis presence not specified Hearing impaired person, bilateral Iron deficiency anemia, unspecified iron deficiency anemia type Pre-op exam [Z01.818 (ICD-10-CM)]- Primary Preoperative examination, unspecified Gastroesophageal reflux disease, unspecified whether esophagitis present Mild intermittent asthma without complication (HCC) Unspecified asthma Intractable migraine without status migrainosus, unspecified migraine type Nicotine use disorder, F17.2 Tobacco use disorder Iron deficiency anemia, unspecified iron deficiency anemia type Psychogenic nonepileptic seizure Biliary colic Calculus of gallbladder without mention of cholecystitis or obstruction Right lower quadrant abdominal pain- Primary Abdominal pain, right lower quadrant Depression, unspecified depression type Folic acid deficiency Other B-complex deficiencies Anemia, unspecified type SOB (shortness of breath) Shortness of breath Mild intermittent asthma with acute exacerbation (HCC) Unspecified asthma, with exacerbation Finger injury, left, sequela Benign tumor of mouth Prediabetes Other abnormal glucose RUQ pain Abdominal pain, right upper quadrant Hypoglycemia Hypoglycemia, unspecified Diarrhea, unspecified type documented in this encounter [facility] note* Diagnosis 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 Seizure-like activity (HCC) Other convulsions Depression Depressive disorder, not elsewhere classified Pre-operative examination- Primary Preoperative examination, unspecified Altered bowel habits Other symptoms involving digestive system Nicotine use disorder, F17.2 Tobacco use disorder Mild intermittent asthma without complication (HCC) Unspecified asthma Intractable migraine without status migrainosus, unspecified migraine type Psychogenic nonepileptic seizure PTSD (post-traumatic stress disorder) Posttraumatic stress disorder Gastroesophageal reflux disease, esophagitis presence not specified Hearing impaired person, bilateral Iron deficiency anemia, unspecified iron deficiency anemia type Pre-op exam [Z01.818 (ICD-10-CM)]- Primary Preoperative examination, unspecified Gastroesophageal reflux disease, unspecified whether esophagitis present Mild intermittent asthma without complication (HCC) Unspecified asthma Intractable migraine without status migrainosus, unspecified migraine type Nicotine use disorder, F17.2 Tobacco use disorder Iron deficiency anemia, unspecified iron deficiency anemia type Psychogenic nonepileptic seizure Biliary colic Calculus of gallbladder without mention of cholecystitis or obstruction Finger injury, left, sequela documented in this encounter [facility] note* Diagnosis 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 Seizure-like activity (HCC) Other convulsions Depression Depressive disorder, not elsewhere classified Pre-operative examination- Primary Preoperative examination, unspecified Altered bowel habits Other symptoms involving digestive system Nicotine use disorder, F17.2 Tobacco use disorder Mild intermittent asthma without complication (HCC) Unspecified asthma Intractable migraine without status migrainosus, unspecified migraine type Psychogenic nonepileptic seizure PTSD (post-traumatic stress disorder) Posttraumatic stress disorder Gastroesophageal reflux disease, esophagitis presence not specified Hearing impaired person, bilateral Iron deficiency anemia, unspecified iron deficiency anemia type Pre-op exam [Z01.818 (ICD-10-CM)]- Primary Preoperative examination, unspecified Gastroesophageal reflux disease, unspecified whether esophagitis present Mild intermittent asthma without complication (HCC) Unspecified asthma Intractable migraine without status migrainosus, unspecified migraine type Nicotine use disorder, F17.2 Tobacco use disorder Iron deficiency anemia, unspecified iron deficiency anemia type Psychogenic nonepileptic seizure Biliary colic Calculus of gallbladder without mention of cholecystitis or obstruction Intractable migraine without status migrainosus, unspecified migraine type- Primary Seizure disorder (HCC) Unspecified epilepsy without mention of intractable epilepsy Major depressive disorder, recurrent, moderate (HCC) Major depressive disorder, recurrent episode, moderate Attention deficit disorder, unspecified type [facility] Diagnosis 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 Seizure-like activity (HCC) Other convulsions Depression Depressive disorder, not elsewhere classified Pre-operative examination- Primary Preoperative examination, unspecified Altered bowel habits Other symptoms involving digestive system Nicotine use disorder, F17.2 Tobacco use disorder Mild intermittent asthma without complication (HCC) Unspecified asthma Intractable migraine without status migrainosus, unspecified migraine type Psychogenic nonepileptic seizure PTSD (post-traumatic stress disorder) Posttraumatic stress disorder Gastroesophageal reflux disease, esophagitis presence not specified Hearing impaired person, bilateral Iron deficiency anemia, unspecified iron deficiency anemia type Pre-op exam [Z01.818 (ICD-10-CM)]- Primary Preoperative examination, unspecified Gastroesophageal reflux disease, unspecified whether esophagitis present Mild intermittent asthma without complication (HCC) Unspecified asthma Intractable migraine without status migrainosus, unspecified migraine type Nicotine use disorder, F17.2 Tobacco use disorder Iron deficiency anemia, unspecified iron deficiency anemia type Psychogenic nonepileptic seizure Biliary colic Calculus of gallbladder without mention of cholecystitis or obstruction Prediabetes Other abnormal glucose documented in this encounter [facility] note* Diagnosis 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 Seizure-like activity (HCC) Other convulsions Depression Depressive disorder, not elsewhere classified Pre-operative examination- Primary Preoperative examination, unspecified Altered bowel habits Other symptoms involving digestive system Nicotine use disorder, F17.2 Tobacco use disorder Mild intermittent asthma without complication (HCC) Unspecified asthma Intractable migraine without status migrainosus, unspecified migraine type Psychogenic nonepileptic seizure PTSD (post-traumatic stress disorder) Posttraumatic stress disorder Gastroesophageal reflux disease, esophagitis presence not specified Hearing impaired person, bilateral Iron deficiency anemia, unspecified iron deficiency anemia type Pre-op exam [Z01.818 (ICD-10-CM)]- Primary Preoperative examination, unspecified Gastroesophageal reflux disease, unspecified whether esophagitis present Mild intermittent asthma without complication (HCC) Unspecified asthma Intractable migraine without status migrainosus, unspecified migraine type Nicotine use disorder, F17.2 Tobacco use disorder Iron deficiency anemia, unspecified iron deficiency anemia type Psychogenic nonepileptic seizure Biliary colic Calculus of gallbladder without mention of cholecystitis or obstruction Current mild episode of major depressive disorder, unspecified whether recurrent- Primary documented in this encounter [facility] note* Diagnosis 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 Seizure-like activity (HCC) Other convulsions Depression Depressive disorder, not elsewhere classified Pre-operative examination- Primary Preoperative examination, unspecified Altered bowel habits Other symptoms involving digestive system Nicotine use disorder, F17.2 Tobacco use disorder Mild intermittent asthma without complication (HCC) Unspecified asthma Intractable migraine without status migrainosus, unspecified migraine type Psychogenic nonepileptic seizure PTSD (post-traumatic stress disorder) Posttraumatic stress disorder Gastroesophageal reflux disease, esophagitis presence not specified Hearing impaired person, bilateral Iron deficiency anemia, unspecified iron deficiency anemia type Pre-op exam [Z01.818 (ICD-10-CM)]- Primary Preoperative examination, unspecified Gastroesophageal reflux disease, unspecified whether esophagitis present Mild intermittent asthma without complication (HCC) Unspecified asthma Intractable migraine without status migrainosus, unspecified migraine type Nicotine use disorder, F17.2 Tobacco use disorder Iron deficiency anemia, unspecified iron deficiency anemia type Psychogenic nonepileptic seizure Biliary colic Calculus of gallbladder without mention of cholecystitis or obstruction Intractable chronic migraine without aura and without status migrainosus- Primary Chronic migraine without aura, with intractable migraine, so stated, without mention of status migrainosus Encounter for gynecological examination without abnormal finding Routine gynecological examination documented in this encounter [facility] note* Diagnosis 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 Seizure-like activity (HCC) Other convulsions Depression Depressive disorder, not elsewhere classified Pre-operative examination- Primary Preoperative examination, unspecified Altered bowel habits Other symptoms involving digestive system Nicotine use disorder, F17.2 Tobacco use disorder Mild intermittent asthma without complication (HCC) Unspecified asthma Intractable migraine without status migrainosus, unspecified migraine type Psychogenic nonepileptic seizure PTSD (post-traumatic stress disorder) Posttraumatic stress disorder Gastroesophageal reflux disease, esophagitis presence not specified Hearing impaired person, bilateral Iron deficiency anemia, unspecified iron deficiency anemia type Pre-op exam [Z01.818 (ICD-10-CM)]- Primary Preoperative examination, unspecified Gastroesophageal reflux disease, unspecified whether esophagitis present Mild intermittent asthma without complication (HCC) Unspecified asthma Intractable migraine without status migrainosus, unspecified migraine type Nicotine use disorder, F17.2 Tobacco use disorder Iron deficiency anemia, unspecified iron deficiency anemia type Psychogenic nonepileptic seizure Biliary colic Calculus of gallbladder without mention of cholecystitis or obstruction Acute cough- Primary URI, acute Acute upper respiratory infections of unspecified site Tobacco abuse Tobacco use disorder Acute otitis media, left Unspecified otitis media Acute sinusitis, recurrence not specified, unspecified location Allergy to penicillin Personal history of allergy to penicillin Asthma, unspecified asthma severity, unspecified whether complicated, unspecified whether persistent (HCC) Acute cough documented in this encounter [facility]* Diagnosis 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 Seizure-like activity (HCC) Other convulsions Depression Depressive disorder, not elsewhere classified Pre-operative examination- Primary Preoperative examination, unspecified Altered bowel habits Other symptoms involving digestive system Nicotine use disorder, F17.2 Tobacco use disorder Mild intermittent asthma without complication (HCC) Unspecified asthma Intractable migraine without status migrainosus, unspecified migraine type Psychogenic nonepileptic seizure PTSD (post-traumatic stress disorder) Posttraumatic stress disorder Gastroesophageal reflux disease, esophagitis presence not specified Hearing impaired person, bilateral Iron deficiency anemia, unspecified iron deficiency anemia type Pre-op exam [Z01.818 (ICD-10-CM)]- Primary Preoperative examination, unspecified Gastroesophageal reflux disease, unspecified whether esophagitis present Mild intermittent asthma without complication (HCC) Unspecified asthma Intractable migraine without status migrainosus, unspecified migraine type Nicotine use disorder, F17.2 Tobacco use disorder Iron deficiency anemia, unspecified iron deficiency anemia type Psychogenic nonepileptic seizure Biliary colic Calculus of gallbladder without mention of cholecystitis or obstruction Acute cough documented in this encounter [facility] note* Diagnosis 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 Seizure-like activity (HCC) Other convulsions Depression Depressive disorder, not elsewhere classified Pre-operative examination- Primary Preoperative examination, unspecified Altered bowel habits Other symptoms involving digestive system Nicotine use disorder, F17.2 Tobacco use disorder Mild intermittent asthma without complication (HCC) Unspecified asthma Intractable migraine without status migrainosus, unspecified migraine type Psychogenic nonepileptic seizure PTSD (post-traumatic stress disorder) Posttraumatic stress disorder Gastroesophageal reflux disease, esophagitis presence not specified Hearing impaired person, bilateral Iron deficiency anemia, unspecified iron deficiency anemia type Pre-op exam [Z01.818 (ICD-10-CM)]- Primary Preoperative examination, unspecified Gastroesophageal reflux disease, unspecified whether esophagitis present Mild intermittent asthma without complication (HCC) Unspecified asthma Intractable migraine without status migrainosus, unspecified migraine type Nicotine use disorder, F17.2 Tobacco use disorder Iron deficiency anemia, unspecified iron deficiency anemia type Psychogenic nonepileptic seizure Biliary colic Calculus of gallbladder without mention of cholecystitis or obstruction Foot pain, left- Primary Pain in limb Acute left ankle pain Foot pain, left Pain in limb Acute left ankle pain documented in this encounter [facility]* Diagnosis 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 Seizure-like activity (HCC) Other convulsions Depression Depressive disorder, not elsewhere classified Pre-operative examination- Primary Preoperative examination, unspecified Altered bowel habits Other symptoms involving digestive system Nicotine use disorder, F17.2 Tobacco use disorder Mild intermittent asthma without complication (HCC) Unspecified asthma Intractable migraine without status migrainosus, unspecified migraine type Psychogenic nonepileptic seizure PTSD (post-traumatic stress disorder) Posttraumatic stress disorder Gastroesophageal reflux disease, esophagitis presence not specified Hearing impaired person, bilateral Iron deficiency anemia, unspecified iron deficiency anemia type Pre-op exam [Z01.818 (ICD-10-CM)]- Primary Preoperative examination, unspecified Gastroesophageal reflux disease, unspecified whether esophagitis present Mild intermittent asthma without complication (HCC) Unspecified asthma Intractable migraine without status migrainosus, unspecified migraine type Nicotine use disorder, F17.2 Tobacco use disorder Iron deficiency anemia, unspecified iron deficiency anemia type Psychogenic nonepileptic seizure Biliary colic Calculus of gallbladder without mention of cholecystitis or obstruction Foot pain, left Pain in limb Acute left ankle pain [facility] N[facility]* Patient here for Depo- Provera. Has been using this for control of menses and contraception. Not curr ently sexually active. Doing well on shot. * Patient notes she had a 2-week episode of severe right lower quadrant pain. Pain is sharp stabbing intermittent variable 6-10 out of 10. No inciting factors. Unrelated to menses. Patient been taking Tylenol with only limited effectiveness. Pain has spontaneously become better over the last few daysbut is still 4-6 out of 10. Patient has prior history of chronic pelvic pain and is status post laparoscopy in 2019 which did not show any abnormalities. * Patient was seen in the emergency room at [facility] complaining of this abdominal pain. Repeat ultrasound was done which shows 3 to 4 cm solid lump. No definitive diagnosis made.Ultrasound results reviewed. Films not available. Impression noted * Patient has history of 3 to 4 cm solid possibly proteinaceous cyst right ovary. Ultrasound follow-up needed [id number] Work Phone: History of Present illness NarrativePatient here for postoperative exam. Status post diagnostic laparoscopy with aspiration of ovarian endometrioma. Coagulation of endometriosis. Patient is doing well but has been having some occasional vaginal bleeding heavy up sometimes mostly spotting. No abdominal pain. No nausea vomiting fever chills no GI or [id number] Work Phone: Hospital Discharge instructionsAdditional Instructions Your x-rays did not show any acute broken bones today. Rotate Tylenol and your naproxen for pain control ice, elevate. Follow-up your doctor in outpatient setting. Return with worsening symptoms or any other concernsWAdams [facility] Work Phone: Hospital Discharge instructionsAdditional Instructions Your abdominal pain is most likely secondary to constipation. Use the GoLytely in 8 to 10 ounce glass every 30 minutes to an hour to give a bowel movement start tomorrow morning. Usually will take several hours. He will get some crampy abdominal pain from the GoLytely. Plenty of fluids, fruits, vegetables fiber prune juice as needed. You also have a right ovarian cyst that is not that big is 2.5 cm. You can follow-up with TRAFFIC SIGNAL TECHNICIAN about that. Motrin Tylenol for pain.[facility] Work Phone: Reason for referral (narrative)* Diagnostic Procedure Only (Routine) - Pending Review Specialty Diagnoses / Procedures Referred By Contac t Referred To Contact MOLECULAR & FUNCTIONAL IMAGING Diagnoses Diarrhea, unspecified type Abdominal cramping Right upper quadrant pain Procedures NM HEPATOBILIARY W EF AND/OR RX HEPATOBIL SYST IMAG INC GB W/[place] [address] [place] [id number] [facility] [address] [place] [address] Referral ID Status Reason Start Date Expiration Date Visits Requested Visits Authorized [id number] Pending Review Auto-Generat ed Referral 04/09/2022 05/09/2023 1 1 * Consult, Test, Treat (Routine) - Authorized Specialty Diagnoses / Procedures Referred By Contac t Referred To Contact Gastroenterology Diagnoses Diarrhea, unspecified type Abdominal cramping Procedures CONSULT TO GASTROENTEROLOGY OFFICE/OUTPATIENT [facility] 60-[place] [address] [place] [address] Referral ID Status Reason Start Date Expiration Date Visits Requested Visits Authorized [id number] Authorized PCP Requested Referral 04/09/2022 04/09/2023 [address] [facility] for referral (narrative)* Diagnostic Procedure Only (Routine) - Closed Specialty Diagnoses / Procedures Referred By Contac t Referred To Contact XR IMAGING Diagnoses Acute pain of right shoulder Procedures XR SHOULDER GENERAL 3V OR MORE AP/TRUE AP/OTHER RIGHT RADEX SHOULDER COMPLETE MINIMUM 2 VIEWS Sophie Avalos MD [address] [place] [address] Xr Imaging Referral ID Status Reason Start Date Expiration Date V isits Requested Visits Authorized [id number] Closed Auto-Generate d Referral 04/30/2022 05/30/2023 [address] [facility] for referral (narrative)* Diagnostic Procedure Only (Routine) - Closed Specialty Diagnoses / Procedures Referred By Contac t Referred To Contact US IMAGING Diagnoses RUQ abdominal pain Loose stools Procedures US ABD RT UPPER QUADRANT US ABDOMINAL REAL TIME W/IMAGE LIMITED Latonya Llamas APRN.GROVE SUPERINTENDENT [address] [place] [address] Us Imaging Referral ID Status Reason Start Date Expiration Date V isits Requested Visits Authorized [id number] Closed Auto-Generate d Referral 06/29/2022 07/29/2023 [address] [facility] for referral (narrative)* Outpatient Procedure (Routine) - Pending Review Specialty Diagnoses / Procedures Referred By Contac t Referred To [facility] Diagnoses Paresthesia Leg weakness, bilateral Right arm numbness Lower extremity numbness Procedures EMG(NEURO/NI) NERVE CONDUCTION STUDIES 9-10 STUDIES Brandi Oconnell APRN.CNP [address] [place] [address] [facility] [place] [address] [place] [address] Referral ID Status Reason Start Date Expiration Date Visits Requested Visits Authorized [id number] Pending Review Auto-Generat ed Referral 07/16/2022 07/16/2023 1 1 * Outpatient Procedure (Routine) - Pending Review Specialty Diagnoses / Procedures Referred By Contac t Referred To [facility] Diagnoses Paresthesia Leg weakness, bilateral Right arm numbness Lower extremity numbness Procedures EMG(NEURO/NI) NERVE CONDUCTION STUDIES 9-10 STUDIES Brandi Oconnell APRN.GROVE SUPERINTENDENT [address] [place] [id number] [facility] [place] [address] [place] [address] Referral ID Status Reason Start Date Expiration Date Visits Requested Visits Authorized [id number] Pending Review Auto-Generat ed Referral 07/16/2022 07/16/2023 1 1 * Diagnostic Procedure Only (Routine) - Pending Review Specialty Diagnoses / Procedures Referred By Radha olvera Referred To Contact XR IMAGING Diagnoses Leg weakness, bilateral Lower extremity numbness Procedures XR LUMBAR GENERAL 3V AP/LAT/L5-S1 RADEX SPINE LUMBOSACRAL 2/3 VIEWS Brandi Oconnell APRN.GROVE SUPERINTENDENT [address] [place] [id number] Xr Imaging Referral ID Status Reason Start Date Expiration Date Visits Requested Visits Authorized [id number] Pending Review Auto-Generat ed Referral 07/16/2022 08/15/2023 [address] [facility] for referral (narrative)* Diagnostic Procedure Only (Routine) - Closed Specialty Diagnoses / Procedures Referred By Contac t Referred To Contact MOLECULAR & FUNCTIONAL IMAGING Diagnoses Nausea Procedures NM HEPATOBILIARY W EF AND/OR RX HEPATOBIL SYST IMAG INC GB W/PHARMA INTERVLatonya Robles APRN.GROVE SUPERINTENDENT [address] [place] [address] Molecular & Functional Imaging [address] [place] [address] Referral ID Status Reason Start Date Expiration Date V isits Requested Visits Authorized [id number] Closed Auto-Generate d Referral 07/09/2022 11/28/2022 [address] [facility] for referral (narrative)* Diagnostic Procedure Only (Routine) - Authorized Specialty Diagnoses / Procedures [facility] To [facility] BR IMAGING Diagnoses Breast pain Procedures US BREAST LTD RT US BREAST UNI REAL TIME WITH IMAGE LIMITED Sophie Avalos MD [address] [place] [address] [facility] [address] [place] [address] Referral ID Status Reason Start Date Expiration Date Visits Requested Visits Authorized [id number] Authorized Auto-Generat ed Referral 2 11/12/2023 1 1 * Diagnostic Procedure Only (Routine) - Authorized Specialty Diagnoses / Procedures Referred By Radha t Referred To Contact BR IMAGING Diagnoses Breast pain Procedures ROSALIE DIAGNOSTIC RT DIAGNOSTIC MAMMOGRAPHY COMPUTER-AIDED DETCJ UNI Sophie Avalos MD [address] [place] [address] [facility] [address] [place] [address] Referral ID Status Reason Start Date Expiration Date Visits Requested Visits Authorized [id number] Authorized Auto-Generat ed Referral 2 11/12/2023 [address] [facility] for referral (narrative)* Diagnostic Procedure Only (Routine) - Closed Specialty Diagnoses / Procedures [facility] To Contact XR IMAGING Diagnoses Right elbow pain Procedures XR ELBOW GENERAL 2V AP/LAT RIGHT RADEX ELBOW 2 VIEWS Sophie Avalos MD [address] [place] [address] [place] [address] Referral ID Status Reason Start Date Expiration Date V isits Requested Visits Authorized [id number] Closed Auto-Generate d Referral 06/08/2022 07/08/2023 [address] [facility] for referral (narrative)* Diagnostic Procedure Only (Routine) - Closed Specialty Diagnoses / Procedures Referred By Contac t Referred To Contact XR IMAGING Diagnoses Leg weakness, bilateral Lower extremity numbness Procedures XR LUMBAR GENERAL 3V AP/LAT/L5-S1 RADEX SPINE LUMBOSACRAL 2/3 VIEWS Brandi Oconnell APRN.CNP [address] [place] [address] [place] [address] Referral ID Status Reason Start Date Expiration Date V isits Requested Visits Authorized [id number] Closed Auto-Generate d Referral 07/16/2022 08/15/2023 [address] [facility] for referral (narrative)* Diagnostic Procedure Only (Routine) - Closed Specialty Diagnoses / Procedures Referred By Contac t Referred To Contact XR IMAGING Diagnoses Acute pain of right shoulder Procedures XR SHOULDER GENERAL 3V OR MORE AP/TRUE AP/OTHER RIGHT RADEX SHOULDER COMPLETE MINIMUM 2 VIEWS Sophie Avalos MD [address] [place] [address] [place] [address] Referral ID Status Reason Start Date Expiration Date V isits Requested Visits Authorized [id number] Closed Auto-Generate d Referral 04/30/2022 05/30/2023 [address] [facility] for referral (narrative)No reason for referral information availableWAdams [facility] Regional [facility] Work Phone: [facility] Narrative* Diagnostic Procedure Only (Routine) - Closed Specialty Diagnoses / Procedures Referred By Contac t Referred To Contact XR IMAGING Diagnoses Right elbow pain Procedures XR ELBOW GENERAL 2V AP/LAT RIGHT RADEX ELBOW 2 VIEWS Sophie Avalos MD [address] [place] [address] [place] [address] Referral ID Status Reason Start Date Expiration Date V isits Requested Visits Authorized [id number] Closed Auto-Generate d Referral 06/08/2022 07/08/2023 [address] [facility] for visit Narrative* Diagnostic Procedure Only (Routine) - Closed Specialty Diagnoses / Procedures Referred By Contac t Referred To Contact XR IMAGING Diagnoses Leg weakness, bilateral Lower extremity numbness Procedures XR LUMBAR GENERAL 3V AP/LAT/L5-S1 RADEX SPINE LUMBOSACRAL 2/3 VIEWS Brandi Oconnell, TEACHER CCLC.GROVE SUPERINTENDENT [address] [place] [address] [place] [address] Referral ID Status Reason Start Date Expiration Date V isits Requested Visits Authorized [id number] Closed Auto-Generate d Referral 07/16/2022 08/15/2023 [address] [facility] for visit Narrative* Diagnostic Procedure Only (Routine) - Closed Specialty Diagnoses / Procedures Referred By Contac t Referred To Contact XR IMAGING Diagnoses Acute pain of right shoulder Procedures XR SHOULDER GENERAL 3V OR MORE AP/TRUE AP/OTHER RIGHT RADEX SHOULDER COMPLETE MINIMUM 2 VIEWS Sophie Avalos MD [address] [place] [address] [place] [address] Referral ID Status Reason Start Date Expiration Date V isits Requested Visits Authorized [id number] Closed Auto-Generate d Referral 04/30/2022 05/30/2023 [address] [facility] for visit Narrative* Diagnostic Procedure Only (Routine) - Closed Specialty Diagnoses / Procedures Referred By Contac t Referred To Contact XR IMAGING Diagnoses Finger injury, left, sequela Procedures XR DIGIT GENERAL 3V FRONTAL/LAT/OBL LEFT RADEX FINGR MINIMUM 2 VIEWS Di Arreola, TEACHER CCLC.GROVE SUPERINTENDENT [address] [place] [address] Phone: tel: fax: [place] [address] Referral ID Status Reason Start Date Expiration Date V isits Requested Visits Authorized [id number] Closed Auto-Generate d Referral 05/01/2025 05/31/2026 [address] [facility] for visit Narrative* Diagnostic Procedure Only (Urgent) - Closed Specialty Diagnoses / Procedures Referred By Contac t Referred To Contact XR IMAGING Diagnoses Acute left ankle pain Procedures XR ANKLE GENERAL 3V AP/LAT/OBL LEFT RADEX ANKLE COMPLETE MINIMUM 3 VIEWS Felipa Torres, TEACHER CCLC.[employer] [address] [place] [address] Phone: tel: fax: [place] [phone] Referral ID Status Reason Start Date Expiration Date V isits Requested Visits Authorized [id number] Closed Auto-Generate d Referral 08/14/2025 09/13/2026 1 1 [facility] Summary Purpose Family History No Family History Records Found Child Name Dates Details Family history of Adopted ch ild Status:Active Child Name Dates Details Family history of Adopted ch ild Status:Active Unknown Family Member Name Dates Details Adopted child: Child Status:Active Unknown Family Member Name Dates Details Adopted child: Child Status:Active Unknown Family Member Name Dates Details Adopted child: Child Status:Active Unknown Family Member Name Dates Details Adopted child: Child Status:Active Unknown Family Member Name Dates Details Adopted child: Child Status:Active Unknown Family Member Name Dates Details Adopted child: Child Status:Active Unknown Family Member Name Dates Details Adopted child: Child Status:Active Unknown Family Member Name Dates Details Adopted child: Child Status:Active Advance Directives No Advanced Directives Records FoundDocuments on File Type Date Recorded Patient Donor Relations Officer Expl anation Advance Directive(s) 07/21/2020 4:13 PM Advance Directive(s) 07/04/2020 2:27 PM Advance Directive(s) 05/27/2020 9:44 AM Advance Directive(s) 02/21/2020 11:16 AM Advance Directive(s) 08/27/2018 5:40 PM Advance Directive Response Recorded Date/ Time Advance Directives No December 11, 2017 8:21pm Living Will No April 21, 2022 1 :23pm Power of Equal Employment Opportunity Officer No April 21, 2022 1:23pm Documents on File Type Date Recorded Patient Donor Relations Officer Expl anation Advance Directive(s) 07/21/2020 4:13 PM Advance Directive(s) 07/04/2020 2:27 PM Advance Directive(s) 05/27/2020 9:44 AM Advance Directive(s) 02/21/2020 11:16 AM Advance Directive(s) 08/27/2018 5:40 PM Advance Directive Response Recorded Date/ Time Advance Directives No December 11, 2017 8:21pm Living Will No June 19, 2022 1:56pm Power of Equal Employment Opportunity Officer No June 19 1:56pm Advance Directive Response Recorded Date/ Time Advance Directives No December 11, 2017 8:21pm Living Will No September 24 12:47pm Power of Equal Employment Opportunity Officer No September 24, 2022 12:47pm Advance Directive Response Recorded Date/ Time Advance Directives No December 11, 2017 7:21pm Living Will No January 08 11:41pm Power of Equal Employment Opportunity Officer No January 08, 2023 11:41pm Advance Directive Response Recorded Date/ Time Advance Directives No December 11, 2017 7:21pm Living Will No February 06, 2023 9:09pm Power of Equal Employment Opportunity Officer No February 06 9:09pm Advance Directive Response Recorded Date/ Time Do you have a Healthcare Power of Equal Employment Opportunity Officer? No August 10, 2025 1:15pm Advance Directives No December 11, 2017 8:21pm Advance Directive Response Recorded Date/ Time Do you have a Healthcare Power of Equal Employment Opportunity Officer? No August 10, 2025 1:15pm Do you have a Healthcare Power of Equal Employment Opportunity Officer? No September 04, 2025 9:26pm Advance Directives No December 11, 2017 8:21pm Chief Complaint Patient here for follow up from ER, last pap 05/06/21 wnl, no hospital pharmacy director needed She is here for her depo and to follow up on her pelvic mass. The office provided the depo. Her last pap was in April 2021 and was normal. No hospital pharmacy director needed.patient here for post op visit, last pap 05/06/21 wnl, no hospital pharmacy director needed Chief Complaint and Reason for Visit Chief Complaint HEAD INJURY SHOULDER Chief Complaint SHOULDER 'welt' inside of RT thigh Chief Complaint 'welt' inside of RT thigh general illness RIGHT SHOULER PAIN Chief Complaint RIGHT SHOULER PAIN SOB SOB Chief Complaint SOB SOB DIARRHEA Chief Complaint Admit Date ankle injury August 10, 2025 12:32pm Chief Complaint Admit Date ankle injury August 10, 2025 12:32pm ABD PAIN September 04, 2025 9: 21pm Reason for Referral Specialty Diagnoses / Procedures Referred By Radha olvera Referred To Contact General Surgery Diagnoses RUQ pain Diarrhea, unspecified type Procedures CONSULT TO GENERAL SURGERY OFFICE/OUTPATIENT [facility] 60-74 MINUTES Latonya Llamas APRN.[employer] [address] [place] [address] Referral ID Status Reason Start Date Expiration Date Visits Requested Visits Authorized [id number] Authorized PCP Requested Referral 07/17/2022 07/17/2023 1 1 Specialty Diagnoses / Procedures Referred By Contac t Referred To Contact Neurology Diagnoses Paresthesia Procedures CONSULT TO NEUROLOGY OFFICE/OUTPATIENT NEW HIGH MDM 60-74 MINUTES Sophie Avalos MD [address] [place] [address] Referral ID Status Reason Start Date Expiration Date Visits Requested Visits Authorized [id number] Authorized PCP Requested Referral 06/08/2022 06/08/2023 1 1 Specialty Diagnoses / Procedures Referred By Contac t Referred To Contact XR IMAGING Diagnoses Right elbow pain Procedures XR ELBOW GENERAL 2V AP/LAT RIGHT RADEX ELBOW 2 VIEWS Sophie Avalos MD [address] [place] [address] Xr Imaging Referral ID Status Reason Start Date Expiration Date V isits Requested Visits Authorized [id number] Closed Auto-Generate d Referral 06/08/2022 07/08/2023 1 1 Specialty Diagnoses / Procedures Referred By Contac t Referred To Contact [facility] Diagnoses Acute pain of right shoulder Procedures CONSULT TO PHYSICAL THERAPY PHYSICAL THERAPY EVALUATION HIGH COMPLEX 45 MINS Di Arreola APRN.[employer] [address] [place] [address] [facility] [address] [place] [address] Referral ID Status Reason Start Date Expiration Date Visits Requested Visits Authorized [id number] Authorized Auto-Generat ed Referral 11/29/2021 11/28/2022 30 30 Medications Administered Section Active Administered Medications - up to 3 most recent administrations Medication Order MAR Action Action Date Dose Rate Site medroxyPROGESTERone 150 mg injection (DEPO-PROVERA) 150 mg, INTRAMUSCULAR, EVERY 12 WEEKS, 5 doses, First dose on Wed11/07/21 at 1700, Last dose on Wed10/09/22 at 1700, Hazardous Potential Reproductive Risk Drug: Use appropriate PPE. Given 04/24/2022 10:10 AM EDT 150 mg Deltoid, Left Given 01/30/2022 4:12 PM EST 150 mg De ltoid, Right Given 11/07/2021 4:40 PM EST 150 mg Bu ttocks, Left Active Administered Medications - up to 3 most recent administrations Medication Order MAR Action Action Date Dose Rate Site medroxyPROGESTERone 150 mg injection (DEPO-PROVERA) 150 mg, INTRAMUSCULAR, EVERY 12 WEEKS, 5 doses, First dose on Wed11/07/21 at 1700, Last dose on Wed10/09/22 at 1700, Hazardous Potential Reproductive Risk Drug: Use appropriate PPE. Given 07/22/2022 1:39 PM EDT 150 mg Deltoid, Right Given 04/24/2022 10:10 AM EDT 150 mg D eltoid, Left Given 01/30/2022 4:12 PM EST 150 mg De ltoid, Right Inactive Administered Medications - up to 3 most recent administrations Medication Order MAR Action Action Date Dose Rate Site keTORolac 60 mg injection (TORADOL) 60 mg, INTRAMUSCULAR, ONCE, 1 dose, On Wed09/25/22 at 1300, Ketorolac (Toradol) is indicated for the short-term (up to 5 days) management of moderately severe acute pain. Continuation of ketorolac (Toradol) beyond 5 days increases the risk of developing serious adverse events. Please verify the duration of therapy for ketorolac (Toradol)., If ordered PRN for pain, patient/guardian may elect to receive this medication for higher pain levels INSTEAD of the opioid, if preferred: Yes Given 09/25/2022 12:47 PM EDT 60 mg Buttocks, Left Inactive Administered Medications - up to 3 most recent administrations Medication Order MAR Action Action Date Dose Rate Site medroxyPROGESTERone 150 mg injection (DEPO-PROVERA) 150 mg, INTRAMUSCULAR, EVERY 12 WEEKS, 5 doses, First dose on Wed11/07/21 at 1700, Last dose on Wed10/09/22 at 1700, Hazardous Potential Reproductive Risk Drug: Use appropriate PPE. Given 12/28/2022 10:34 AM EST 150 mg Deltoid, Left Given 07/22/2022 1:39 PM EDT 150 mg De ltoid, Right Given 04/24/2022 10:10 AM EDT 150 mg D eltoid, Left Health Concerns Infection Onset Date Last Indicated Resolved Time COVID-19 Rule-Out 10/28/2022 10/28/2022 Infection Onset Date Last Indicated Resolved Time COVID-19 Rule-Out 10/28/2022 10/28/2022 10/29/2022 1:08 AM EST Additional Source Comments INFORMATION SOURCE (unrecogn ized section and content) DATE CREATED AUTHOR 10/27/2018 [facility] [place] DATE CREATED AUTHOR AUTHOR'S ORGANIZ ATION 07/24/2020 [facility] DATE CREATED AUTHOR AUTHOR'S ORGANIZ ATION 09/05/2021 [facility] DATE CREATED AUTHOR AUTHOR'S ORGANIZ ATION 09/07/2021 [facility] DATE CREATED AUTHOR AUTHOR'S ORGANIZ ATION 10/02/2021 [employer] DATE CREATED AUTHOR AUTHOR'S ORGANIZ ATION 10/11/2021 [facility] ([place] DATE CREATED AUTHOR AUTHOR'S ORGANIZ ATION 10/15/2021 [facility] DATE CREATED AUTHOR AUTHOR'S ORGANIZ ATION 01/20/2023 [facility] DATE CREATED AUTHOR AUTHOR'S ORGANIZ ATION 09/13/2025 [facility] DATE CREATED AUTHOR AUTHOR'S ORGANIZ ATION 09/15/2025 [facility] Source Comments (unrecognize d section and content) In the event this informatio n is protected by the Federal Confidentiality of Alcohol and Drug Abuse Patient Records regulations: The Federal rules restrict any use of the information to criminally investigate or prosecute any alcohol or drug abuse patient.[facility] Center[facility] the event this information is protected by the Federal Confidentiality of Alcohol and Drug Abuse Patient Records regulations: The Federal rules restrict any use of the information to criminally investigate or prosecute any alcohol or drug abuse patient.[facility] CenterIn the event this information is protected by the Federal Confidentiality of Alcohol and Drug Abuse Patient Records regulations: The Federal rules restrict any use of the information to criminally investigate or prosecute any alcohol or drug abuse patient.[facility] CenterIn the event this information is protected by the Federal Confidentiality of Alcohol and Drug Abuse Patient Records regulations: The Federal rules restrict any use of the information to criminally investigate or prosecute any alcohol or drug abuse patient.[facility] CenterIn the event this information is protected by the Federal Confidentiality of Alcohol and Drug Abuse Patient Records regulations: The Federal rules restrict any use of the information to criminally investigate or prosecute any alcohol or drug abuse patient.[facility] CenterIn the event this information is protected by the Federal Confidentiality of Alcohol and Drug Abuse Patient Records regulations: The Federal rules restrict any use of the information to criminally investigate or prosecute any alcohol or drug abuse patient.[facility] CenterIn the event this information is protected by the Federal Confidentiality of Alcohol and Drug Abuse Patient Records regulations: The Federal rules restrict any use of the information to criminally investigate or prosecute any alcohol or drug abuse patient.[facility] CenterIn the event this information is protected by the Federal Confidentiality of Alcohol and Drug Abuse Patient Records regulations: The Federal rules restrict any use of the information to criminally investigate or prosecute any alcohol or drug abuse patient.[facility] CenterIn the event this information is protected by the Federal Confidentiality of Alcohol and Drug Abuse Patient Records regulations: The Federal rules restrict any use of the information to criminally investigate or prosecute any alcohol or drug abuse patient.[facility] CenterIn the event this information is protected by the Federal Confidentiality of Alcohol and Drug Abuse Patient Records regulations: The Federal rules restrict any use of the information to criminally investigate or prosecute any alcohol or drug abuse patient.[facility] CenterIn the event this information is protected by the Federal Confidentiality of Alcohol and Drug Abuse Patient Records regulations: The Federal rules restrict any use of the information to criminally investigate or prosecute any alcohol or drug abuse patient.[facility] CenterIn the event this information is protected by the Federal Confidentiality of Alcohol and Drug Abuse Patient Records regulations: The Federal rules restrict any use of the information to criminally investigate or prosecute any alcohol or drug abuse patient.[facility] CenterIn the event this information is protected by the Federal Confidentiality of Alcohol and Drug Abuse Patient Records regulations: The Federal rules restrict any use of the information to criminally investigate or prosecute any alcohol or drug abuse patient.[facility] CenterIn the event this information is protected by the Federal Confidentiality of Alcohol and Drug Abuse Patient Records regulations: The Federal rules restrict any use of the information to criminally investigate or prosecute any alcohol or drug abuse patient.[facility] CenterIn the event this information is protected by the Federal Confidentiality of Alcohol and Drug Abuse Patient Records regulations: The Federal rules restrict any use of the information to criminally investigate or prosecute any alcohol or drug abuse patient.[facility] CenterIn the event this information is protected by the Federal Confidentiality of Alcohol and Drug Abuse Patient Records regulations: The Federal rules restrict any use of the information to criminally investigate or prosecute any alcohol or drug abuse patient.[facility] CenterIn the event this information is protected by the Federal Confidentiality of Alcohol and Drug Abuse Patient Records regulations: The Federal rules restrict any use of the information to criminally investigate or prosecute any alcohol or drug abuse patient.[facility] CenterIn the event this information is protected by the Federal Confidentiality of Alcohol and Drug Abuse Patient Records regulations: The Federal rules restrict any use of the information to criminally investigate or prosecute any alcohol or drug abuse patient.[facility] CenterIn the event this information is protected by the Federal Confidentiality of Alcohol and Drug Abuse Patient Records regulations: The Federal rules restrict any use of the information to criminally investigate or prosecute any alcohol or drug abuse patient.[facility] CenterIn the event this information is protected by the Federal Confidentiality of Alcohol and Drug Abuse Patient Records regulations: The Federal rules restrict any use of the information to criminally investigate or prosecute any alcohol or drug abuse patient.[facility] CenterIn the event this information is protected by the Federal Confidentiality of Alcohol and Drug Abuse Patient Records regulations: The Federal rules restrict any use of the information to criminally investigate or prosecute any alcohol or drug abuse patient.[facility] CenterIn the event this information is protected by the Federal Confidentiality of Alcohol and Drug Abuse Patient Records regulations: The Federal rules restrict any use of the information to criminally investigate or prosecute any alcohol or drug abuse patient.[facility] CenterIn the event this information is protected by the Federal Confidentiality of Alcohol and Drug Abuse Patient Records regulations: The Federal rules restrict any use of the information to criminally investigate or prosecute any alcohol or drug abuse patient.[facility] CenterIn the event this information is protected by the Federal Confidentiality of Alcohol and Drug Abuse Patient Records regulations: The Federal rules restrict any use of the information to criminally investigate or prosecute any alcohol or drug abuse patient.[facility] CenterIn the event this information is protected by the Federal Confidentiality of Alcohol and Drug Abuse Patient Records regulations: The Federal rules restrict any use of the information to criminally investigate or prosecute any alcohol or drug abuse patient.[facility] CenterIn the event this information is protected by the Federal Confidentiality of Alcohol and Drug Abuse Patient Records regulations: The Federal rules restrict any use of the information to criminally investigate or prosecute any alcohol or drug abuse patient.[facility] CenterIn the event this information is protected by the Federal Confidentiality of Alcohol and Drug Abuse Patient Records regulations: The Federal rules restrict any use of the information to criminally investigate or prosecute any alcohol or drug abuse patient.[facility] CenterIn the event this information is protected by the Federal Confidentiality of Alcohol and Drug Abuse Patient Records regulations: The Federal rules restrict any use of the information to criminally investigate or prosecute any alcohol or drug abuse patient.[facility] CenterIn the event this information is protected by the Federal Confidentiality of Alcohol and Drug Abuse Patient Records regulations: The Federal rules restrict any use of the information to criminally investigate or prosecute any alcohol or drug abuse patient.[facility] CenterIn the event this information is protected by the Federal Confidentiality of Alcohol and Drug Abuse Patient Records regulations: The Federal rules restrict any use of the information to criminally investigate or prosecute any alcohol or drug abuse patient.[facility] CenterIn the event this information is protected by the Federal Confidentiality of Alcohol and Drug Abuse Patient Records regulations: The Federal rules restrict any use of the information to criminally investigate or prosecute any alcohol or drug abuse patient.[facility] CenterIn the event this information is protected by the Federal Confidentiality of Alcohol and Drug Abuse Patient Records regulations: The Federal rules restrict any use of the information to criminally investigate or prosecute any alcohol or drug abuse patient.[facility] CenterIn the event this information is protected by the Federal Confidentiality of Alcohol and Drug Abuse Patient Records regulations: The Federal rules restrict any use of the information to criminally investigate or prosecute any alcohol or drug abuse patient.[facility] CenterIn the event this information is protected by the Federal Confidentiality of Alcohol and Drug Abuse Patient Records regulations: The Federal rules restrict any use of the information to criminally investigate or prosecute any alcohol or drug abuse patient.[facility] CenterIn the event this information is protected by the Federal Confidentiality of Alcohol and Drug Abuse Patient Records regulations: The Federal rules restrict any use of the information to criminally investigate or prosecute any alcohol or drug abuse patient.[facility] CenterIn the event this information is protected by the Federal Confidentiality of Alcohol and Drug Abuse Patient Records regulations: The Federal rules restrict any use of the information to criminally investigate or prosecute any alcohol or drug abuse patient.[facility] CenterIn the event this information is protected by the Federal Confidentiality of Alcohol and Drug Abuse Patient Records regulations: The Federal rules restrict any use of the information to criminally investigate or prosecute any alcohol or drug abuse patient.[facility] CenterIn the event this information is protected by the Federal Confidentiality of Alcohol and Drug Abuse Patient Records regulations: The Federal rules restrict any use of the information to criminally investigate or prosecute any alcohol or drug abuse patient.[facility] CenterIn the event this information is protected by the Federal Confidentiality of Alcohol and Drug Abuse Patient Records regulations: The Federal rules restrict any use of the information to criminally investigate or prosecute any alcohol or drug abuse patient.[facility] CenterIn the event this information is protected by the Federal Confidentiality of Alcohol and Drug Abuse Patient Records regulations: The Federal rules restrict any use of the information to criminally investigate or prosecute any alcohol or drug abuse patient.[facility] CenterIn the event this information is protected by the Federal Confidentiality of Alcohol and Drug Abuse Patient Records regulations: The Federal rules restrict any use of the information to criminally investigate or prosecute any alcohol or drug abuse patient.[facility] CenterIn the event this information is protected by the Federal Confidentiality of Alcohol and Drug Abuse Patient Records regulations: The Federal rules restrict any use of the information to criminally investigate or prosecute any alcohol or drug abuse patient.[facility] CenterIn the event this information is protected by the Federal Confidentiality of Alcohol and Drug Abuse Patient Records regulations: The Federal rules restrict any use of the information to criminally investigate or prosecute any alcohol or drug abuse patient.[facility] CenterIn the event this information is protected by the Federal Confidentiality of Alcohol and Drug Abuse Patient Records regulations: The Federal rules restrict any use of the information to criminally investigate or prosecute any alcohol or drug abuse patient.[facility] CenterIn the event this information is protected by the Federal Confidentiality of Alcohol and Drug Abuse Patient Records regulations: The Federal rules restrict any use of the information to criminally investigate or prosecute any alcohol or drug abuse patient.[facility] CenterIn the event this information is protected by the Federal Confidentiality of Alcohol and Drug Abuse Patient Records regulations: The Federal rules restrict any use of the information to criminally investigate or prosecute any alcohol or drug abuse patient.[facility] CenterIn the event this information is protected by the Federal Confidentiality of Alcohol and Drug Abuse Patient Records regulations: The Federal rules restrict any use of the information to criminally investigate or prosecute any alcohol or drug abuse patient.[facility] CenterIn the event this information is protected by the Federal Confidentiality of Alcohol and Drug Abuse Patient Records regulations: The Federal rules restrict any use of the information to criminally investigate or prosecute any alcohol or drug abuse patient.[facility] CenterIn the event this information is protected by the Federal Confidentiality of Alcohol and Drug Abuse Patient Records regulations: The Federal rules restrict any use of the information to criminally investigate or prosecute any alcohol or drug abuse patient.[facility] CenterIn the event this information is protected by the Federal Confidentiality of Alcohol and Drug Abuse Patient Records regulations: The Federal rules restrict any use of the information to criminally investigate or prosecute any alcohol or drug abuse patient.[facility] CenterIn the event this information is protected by the Federal Confidentiality of Alcohol and Drug Abuse Patient Records regulations: The Federal rules restrict any use of the information to criminally investigate or prosecute any alcohol or drug abuse patient.[facility] CenterIn the event this information is protected by the Federal Confidentiality of Alcohol and Drug Abuse Patient Records regulations: The Federal rules restrict any use of the information to criminally investigate or prosecute any alcohol or drug abuse patient.[facility] CenterIn the event this information is protected by the Federal Confidentiality of Alcohol and Drug Abuse Patient Records regulations: The Federal rules restrict any use of the information to criminally investigate or prosecute any alcohol or drug abuse patient.[facility] CenterIn the event this information is protected by the Federal Confidentiality of Alcohol and Drug Abuse Patient Records regulations: The Federal rules restrict any use of the information to criminally investigate or prosecute any alcohol or drug abuse patient.[facility] CenterIn the event this information is protected by the Federal Confidentiality of Alcohol and Drug Abuse Patient Records regulations: The Federal rules restrict any use of the information to criminally investigate or prosecute any alcohol or drug abuse patient.[facility] CenterIn the event this information is protected by the Federal Confidentiality of Alcohol and Drug Abuse Patient Records regulations: The Federal rules restrict any use of the information to criminally investigate or prosecute any alcohol or drug abuse patient.[facility] CenterIn the event this information is protected by the Federal Confidentiality of Alcohol and Drug Abuse Patient Records regulations: The Federal rules restrict any use of the information to criminally investigate or prosecute any alcohol or drug abuse patient.[facility] CenterIn the event this information is protected by the Federal Confidentiality of Alcohol and Drug Abuse Patient Records regulations: The Federal rules restrict any use of the information to criminally investigate or prosecute any alcohol or drug abuse patient.[facility] CenterIn the event this information is protected by the Federal Confidentiality of Alcohol and Drug Abuse Patient Records regulations: The Federal rules restrict any use of the information to criminally investigate or prosecute any alcohol or drug abuse patient.[facility] CenterIn the event this information is protected by the Federal Confidentiality of Alcohol and Drug Abuse Patient Records regulations: The Federal rules restrict any use of the information to criminally investigate or prosecute any alcohol or drug abuse patient.[facility] CenterIn the event this information is protected by the Federal Confidentiality of Alcohol and Drug Abuse Patient Records regulations: The Federal rules restrict any use of the information to criminally investigate or prosecute any alcohol or drug abuse patient.[facility] CenterIn the event this information is protected by the Federal Confidentiality of Alcohol and Drug Abuse Patient Records regulations: The Federal rules restrict any use of the information to criminally investigate or prosecute any alcohol or drug abuse patient.[facility] CenterIn the event this information is protected by the Federal Confidentiality of Alcohol and Drug Abuse Patient Records regulations: The Federal rules restrict any use of the information to criminally investigate or prosecute any alcohol or drug abuse patient.[facility] CenterIn the event this information is protected by the Federal Confidentiality of Alcohol and Drug Abuse Patient Records regulations: The Federal rules restrict any use of the information to criminally investigate or prosecute any alcohol or drug abuse patient.[facility] Reason for Visit (unrecogniz ed section and content) Reason Comments Physical Therapy Specialty Diagnoses / Procedures Referred By Contac t Referred To Contact [facility] Diagnoses Acute pain of right shoulder Procedures CONSULT TO PHYSICAL THERAPY PHYSICAL THERAPY EVALUATION HIGH COMPLEX 45 MINS Di Arreola APRN.GROVE SUPERINTENDENT [address] [place] [address] [facility] [place] [address] [place] [address] Referral ID Status Reason Start Date Expiration Date Visits Requested Visits Authorized [id number] Authorized Auto-Generat ed Referral 11/29/2021 11/28/2022 30 30 Reason Comments PT Progress Note Reason Comments Diarrhea abd pain flared up t his week Reason Comments Pain (Shoulder Pain) right shoulder Reason Comments PT Eval Reason Onset Date Comments Depo Provera Injection 04/24/2022 Reason Comments Follow Up right shoulder start ed PT as ordered Reason Comments Recheck 2 week follow up Reason Comments Rash rash in butt crack x 2 days Reason Comments Recheck 2 week follow up- sh oulder pain Reason Comments Pain (Elbow Pain) RIGHT elbow x 2 eulalia hs Reason Comments Results Reason Comments Patient Update Reason Comments Radiology US Specialty Diagnoses / Procedures Referred By Contac t Referred To Contact US IMAGING Diagnoses RUQ abdominal pain Loose stools Procedures US ABD RT UPPER QUADRANT US ABDOMINAL REAL TIME W/IMAGE LIMITED Latonya Llamas, TEACHER CCLC.GROVE SUPERINTENDENT [address] [place] [address] Us Imaging Referral ID Status Reason Start Date Expiration Date V isits Requested Visits Authorized [id number] Closed Auto-Generate d Referral 06/29/2022 07/29/2023 1 1 Reason Comments Numbness In legs Specialty Diagnoses / Procedures Referred By Contac t Referred To Contact Neurology Diagnoses Paresthesia Procedures CONSULT TO NEUROLOGY OFFICE/OUTPATIENT NEW HIGH MDM 60-74 MINUTES Sophie Avalos MD [address] [place] [address] Referral ID Status Reason Start Date Expiration Date V isits Requested Visits Authorized [id number] Closed PCP Requested Referral 06/08/2022 06/08/2023 1 1 Reason Comments Radiology NM Specialty Diagnoses / Procedures Referred By Contac t Referred To Contact [facility] FUN[facility]ING Diagnoses Nausea Procedures NM HEPATOBILIARY W EF AND/OR RX HEPATOBIL SYST IMAG INC GB W/PHARMA INTERVENJ Latonya Llamas, TEACHER CCLC.GROVE SUPERINTENDENT [address] [place] [address] [facility] [address] [id number] Referral ID Status Reason Start Date Expiration Date V isits Requested Visits Authorized [id number] Closed Auto-Generate d Referral 07/09/2022 11/28/2022 1 1 Reason Comments Well Woman Reason Comments Opened In Error Reason Comments Headache Pain rated 8, x 5 da , [facility] ER visit 07/30/2022, nasal congestion reported negative Covid 07/30/2022. Reason Comments Med Change Request Reason Onset Date Comments EMG 09/18/2022 Specialty Diagnoses / Procedures Referred By Contac t Referred To Contact [facility] Diagnoses Paresthesia Leg weakness, bilateral Right arm numbness Lower extremity numbness Procedures EMG(NEURO/NI) NERVE CONDUCTION STUDIES 9-10 STUDIES Brandi Oconnell, TEACHER CCLC.GROVE SUPERINTENDENT [address] [place] [address] [facility] [place] [address] [place] [address] Referral ID Status Reason Start Date Expiration Date V isits Requested Visits Authorized [id number] Closed Auto-Generate d Referral 11/29/2021 11/28/2022 1 1 Reason Comments Pain (Shoulder Pain) Right shoulder X 2 months Neck Pain Right side of neck x 2 months Reason Comments Pain Right breast pain Reason Comments Cough diarrhea, vomiting, bodyaches, headache x 2 days Reason Comments New Patient Evaluation Ms. Farmer is here today for abdominal pain that's been going on for years. Reason Comments Work Excuse Reason Onset Date Comments Refill Request 11/24/2022 Reason Comments Medication Problem Reason Comments Opened In Error Reason Onset Date Comments Depo Provera Injection 12/28/2022 Reason Comments Post Op Follow Up Ms. Farmer is her e today for her s/p cholecystectomy. Reason Onset Date Comments Refill Request 03/01/2023 Reason Onset Date Comments Refill Request 08/12/2023 Reason Comments Radio Gen RMP Reason Comments Abdominal Pain Reason Onset Date Comments Results 05/04/2025 Reason Comments Appointment Reason Comments Acute Visit RLQ pain intermitten t since oophorectomy in Reason Comments follow up for medoications, form for edgardo padron permit Reason Comments Forms BMV Reason Onset Date Comments Refill Request 06/26/2025 Reason Comments Insurance Authorization Reason Comments Follow Up Referral to CUSTOMER ENGAGEMENT MANAGER for pap? Migraine Increase in migraine s since stopping topamax. Was not able to get the Qulipta. Also duloxetine was only ordered as once daily and she thought was to be twice daily. Reason Comments Cough Sneezing, stuffy/run ny nose, drainage, sore throat x 1.5 weeks Reason Comments ER F/U Left foot Care Teams (unrecognized sec tion and content) Senior Merchandiser Relationship Specialty Start Date End Date Sophie Avalos MD [address] [place], [place] [id number] PCP - General Family Practice 05/27/19 Senior Merchandiser Relationship Specialty Start Date End Date Sophie Avalos MD [address] [place], [place] [id number] PCP - General Family Practice 05/27/19 Senior Merchandiser Relationship Specialty Start Date End Date Sophie Avalos MD [address] [place], [place] [id number] PCP - General Family Practice 05/27/19 Senior Merchandiser Relationship Specialty Start Date End Date Sophie Avalos MD [address] [place], [place] [id number] PCP - General Family Practice 05/27/19 Senior Merchandiser Relationship Specialty Start Date End Date Sophie Avalos MD [address] [facility] [address] PCP - General Family Practice 05/27/19 Senior Merchandiser Relationship Specialty Start Date End Date Sophie Avalos MD [address] [facility] [address] PCP - General Family Practice 05/27/19 Senior Merchandiser Relationship Specialty Start Date End Date Sophie Avalos MD [address] [facility] [place] [address] PCP - General Family Practice 05/27/19 Senior Merchandiser Relationship Specialty Start Date End Date Sophie Avalos MD [address] [facility] [address] PCP - General Family Practice 05/27/19 Senior Merchandiser Relationship Specialty Start Date End Date Sophie Avalos MD [address] [facility] [address] PCP - General Family Practice 05/27/19 Senior Merchandiser Relationship Specialty Start Date End Date Sophie Avalos MD [address] [facility] [address] PCP - General Family Practice 05/27/19 Senior Merchandiser Relationship Specialty Start Date End Date Sophie Avalos MD [address] [facility] [address] PCP - General Family Practice 05/27/19 Senior Merchandiser Relationship Specialty Start Date End Date Sophie Avalos MD [address] [facility] [address] PCP - General Family Practice 05/27/19 Senior Merchandiser Relationship Specialty Start Date End Date Sophie Avalos MD [address] [facility] [address] PCP - General Family Practice 05/27/19 Senior Merchandiser Relationship Specialty Start Date End Date Sophie Avalos MD [address] [facility] [address] PCP - General Family Practice 05/27/19 Senior Merchandiser Relationship Specialty Start Date End Date Sophie Avalos MD [address] [facility] [address] PCP - General Family Practice 05/27/19 Senior Merchandiser Relationship Specialty Start Date End Date Sophie Avalos MD [address] [facility] [address] PCP - General Family Practice 05/27/19 Senior Merchandiser Relationship Specialty Start Date End Date Sophie Avalos MD [address] [facility] [address] PCP - General Family Medicine 05/27/19 Senior Merchandiser Relationship Specialty Start Date End Date Sophie Avalos MD [address] [facility] [address] PCP - General Family Medicine 05/27/19 Senior Merchandiser Relationship Specialty Start Date End Date Sophie Avalos MD [address] [facility] [address] PCP - General Family Medicine 05/27/19 Senior Merchandiser Relationship Specialty Start Date End Date Sophie Avalos MD [address] [facility] [address] PCP - General Family Medicine 05/27/19 Senior Merchandiser Relationship Specialty Start Date End Date Sophie Avalos MD [address] [facility] [address] PCP - General Family Medicine 05/27/19 Senior Merchandiser Relationship Specialty Start Date End Date Sophie Avalos MD [address] [facility] [address] PCP - General Family Medicine 05/27/19 Senior Merchandiser Relationship Specialty Start Date End Date Sophie Avalos MD [address] [facility] [address] PCP - General Family Medicine 05/27/19 Senior Merchandiser Relationship Specialty Start Date End Date Sophie Avalos MD [address] [facility] [address] PCP - General Family Medicine 05/27/19 Senior Merchandiser Relationship Specialty Start Date End Date Sophie Avalos MD [address] [facility] [address] PCP - General Family Medicine 05/27/19 Senior Merchandiser Relationship Specialty Start Date End Date Sophie Avalos MD [address] [facility] [address] PCP - General Family Medicine 05/27/19 Senior Merchandiser Relationship Specialty Start Date End Date Sophie Avalos MD [address] [facility] [address] PCP - General Family Medicine 05/27/19 Senior Merchandiser Relationship Specialty Start Date End Date Sophie Avalos MD [address] [facility] [address] PCP - General Family Medicine 05/27/19 Senior Merchandiser Relationship Specialty Start Date End Date Sophie Avalos MD [address] [facility] [address] PCP - General Family Medicine 05/27/19 Team Status: Active Member Role Status Dates Dr. Sophie Avalos MD Family Provider Active Dr. Sophie Avalos MD Primary Care Provider Active Team Status: Inactive Member Role Status Dates Dr. Sophie Avalos MD Primary Care Provider Active Dr. Ernie Birch DO Attending Provider, Emergency Provider Active Team Status: Inactive Member Role Status Dates Dr. Sophie Avalos MD Primary Care Provider Active Dr. Mukul Yusuf DO Emergency Provider Active Team Status: Inactive Member Role Status Dates Dr. Sophie Avalos MD Primary Care Provider Active Dr. Mukul Yusuf DO Attending Provider, Emergency Pr ovider Active Team Status: Inactive Member Role Status Dates Dr. Sophie Avalos MD Primary Care Provider Active Dr. Pola Garza MD Emergency Provider Active Senior Merchandiser Relationship Specialty Start Date End Date Sophie Avalos MD [address] [facility] [address] PCP - General Family Medicine 05/27/19 Senior Merchandiser Relationship Specialty Start Date End Date Sophie Avalos MD [address] [facility] [address] PCP - General Family Medicine 05/27/19 Senior Merchandiser Relationship Specialty Start Date End Date Sophie Avalos MD [address] [facility] [address] PCP - General Family Medicine 05/27/19 Senior Merchandiser Relationship Specialty Start Date End Date Sophie Avalos MD [address] [facility] [address] PCP - General Family Medicine 05/27/19 Senior Merchandiser Relationship Specialty Start Date End Date Sophie Avalos MD [address] [facility] [address] PCP - General Family Medicine 05/27/19 Senior Merchandiser Relationship Specialty Start Date End Date Sophie Avalos MD [address] [facility] [address] PCP - General Family Medicine 05/27/19 Senior Merchandiser Relationship Specialty Start Date End Date Sophie Avalos MD [address] [facility] [address] PCP - General Family Medicine 05/27/19 Senior Merchandiser Relationship Specialty Start Date End Date Sophie Avalos MD [address] [facility] [place] [address] PCP - General Family Medicine 05/27/19 Senior Merchandiser Relationship Specialty Start Date End Date Sophie Avalos MD [address] [facility], [place] [address] PCP - General Family Medicine 05/27/19 Senior Merchandiser Relationship Specialty Start Date End Date Sophie Avalos MD [address] [facility] [address] PCP - General Family Medicine 05/27/19 Senior Merchandiser Relationship Specialty Start Date End Date Sophie Avalos MD [address] [facility] [address] PCP - General Family Medicine 05/27/19 Di Arreola APRN.GROVE SUPERINTENDENT [address] [facility] [place] [address] Exhaust Worker [facility] Medicine 11/06/24 Felipa Torres APRN.GROVE SUPERINTENDENT [address] [facility] [address] Exhaust Worker Family Medicine 11/06/24 Senior Merchandiser Relationship Specialty Start Date End Date Sophie Avalos MD [address] [facility] [address] PCP - General Family Medicine 05/27/19 Di Arreola APRN.GROVE SUPERINTENDENT [address] [facility] [place] [address] Exhaust Worker Family Medicine 11/06/24 Felipa Torres APRN.GROVE SUPERINTENDENT [address] [facility] [address] Exhaust Worker Family Medicine 11/06/24 Senior Merchandiser Relationship Specialty Start Date End Date Sophie Avalos MD [address] [facility] [address] PCP - General Family Medicine 05/27/19 Di Arreola TEACHER CCLC.GROVE SUPERINTENDENT [address] [facility] [place] [address] Exhaust Worker Family Medicine 11/06/24 Felipa Torres TEACHER CCLC.GROVE SUPERINTENDENT [address] [facility] [address] [facility] 11/06/24 Senior Merchandiser Relationship Specialty Start Date End Date Sophie Avalos MD [address] [facility] [address] PCP - General Family Medicine 05/27/19 Di Arreola TEACHER CCLC.GROVE SUPERINTENDENT [address] [facility] [address] Exhaust Worker Family Medicine 11/06/24 Felipa Torres TEACHER CCLC.GROVE SUPERINTENDENT [address] [facility] [address] Exhaust Worker Family Medicine 11/06/24 Senior Merchandiser Relationship Specialty Start Date End Date Sophie Avalos MD [address] [facility] [address] PCP - General Family Medicine 05/27/19 Di Arreola, TEACHER CCLC.GROVE SUPERINTENDENT [address] [facility] [place] [address] Exhaust Worker Family [facility] 11/06/24 Felipa Torres APRN.GROVE SUPERINTENDENT [address] [place] [address] [facility] Senior Merchandiser Relationship Specialty Start Date End Date Sophie Avalos MD [address] [facility] [place] [address] PCP - General Family Medicine 05/27/19 Di Arreola APRN.GROVE SUPERINTENDENT [address] [place] [address] [facility] 11/06/24 Felipa Torres TEACHER CCLC.GROVE SUPERINTENDENT [address] [place] [address] [facility] 11/06/24 Senior Merchandiser Relationship Specialty Start Date End Date Sophie Avalos MD [address] [facility] [place] [address] PCP - General Family Medicine 05/27/19 Di Arreola TEACHER CCLC.GROVE SUPERINTENDENT [address] [facility] [place] [address] [facility] 11/06/24 Felipa Torres TEACHER CCLC.GROVE SUPERINTENDENT [address] [place] [address] [facility] 11/06/24 Senior Merchandiser Relationship Specialty Start Date End Date Sophie Avalos MD [address] [place] [address] PCP - General Family Medicine 05/27/19 Di Arreola TEACHER CCLC.GROVE SUPERINTENDENT [address] [place] [address] Exhaust Worker Family Medicine 11/06/24 Felipa Torres TEACHER CCLC.GROVE SUPERINTENDENT [address] [place] [address] Exhaust Worker Family [facility] 11/06/24 Senior Merchandiser Relationship Specialty Start Date End Date Sophie Avalos MD [address] [place] [address] PCP - General Family Medicine 05/27/19 Di Arreola, TEACHER CCLC.GROVE SUPERINTENDENT [address] [place] [address] [facility] 11/06/24 Felipa Torres TEACHER CCLC.GROVE SUPERINTENDENT [address] [place] [address] [facility] 11/06/24 Senior Merchandiser Relationship Specialty Start Date End Date Sophie Avalos MD [address] [place] [address] PCP - General Family Medicine 05/27/19 Di Arreola TEACHER CCLC.GROVE SUPERINTENDENT [address] [place] [address] [facility] Medicine 11/06/24 Felipa Torres TEACHER CCLC.GROVE SUPERINTENDENT [address] [place] [address] [facility] 11/06/24 Senior Merchandiser Relationship Specialty Start Date End Date Sophie Avalos MD [address] [facility] [place], [place] [address] PCP - General Family Medicine 05/27/19 Di Arreola, TEACHER CCLC.GROVE SUPERINTENDENT [address] [facility] [place], [place] [address] Exhaust Worker Family Medicine 11/06/24 Felipa Torres TEACHER CCLC.GROVE SUPERINTENDENT [address] [facility] [place] [address] [facility] 11/06/24 Team Status: Active Member Role/Relationship Status Dates Dr. Sophie Avalos MD Primary Care Provider Active Team Status: Inactive Member Role/Relationship Status Dates Dr. Sophie Avalos MD Primary Care Provider Active Start: August 10, 2025 End: August 10, 2025 Dr. Robles De La Torre DO Emergency Provider Active Start: August 10, 2025 End: August 10, 2025 Senior Merchandiser Relationship Specialty Start Date End Date Sophie Avalos MD [address] [facility] [place], [place] [address] PCP - General Family Medicine 05/27/19 Di Arreola, TEACHER CCLC.GROVE SUPERINTENDENT [address] [place] [address] Exhaust Worker Family Medicine 11/06/24 Felipa Torres TEACHER CCLC.GROVE SUPERINTENDENT [address] [facility] [place], [place] [address] [facility] Medicine 11/06/24 Senior Merchandiser Relationship Specialty Start Date End Date Sophie Avalos MD [address] [facility] [place] [id number] PCP - General Family Medicine 05/27/19 Di Arreola, BREANA.GROVE SUPERINTENDENT [address] [facility] [address] [facility] 11/06/24 Felipa Torres APRN.GROVE SUPERINTENDENT [address] [facility] [place] [address] [facility] 11/06/24 Team Status: Active Member Role/Relationship Status Dates Dr. Sophie Avalos MD Primary care physician Active Team Status: Inactive Member Role/Relationship Status Dates Dr. Sophie Avalos MD Primary care physician Active Start: August 10, 2025 End: August 10, 2025 Dr. Robles De La Torre DO Attending physician Active Start: August 10, 2025 End: August 10, 2025 Dr. Robles De La Torre DO Emergency Departme nt Physician Active Start: August 10, 2025 End: August 10, 2025 Team Status: Inactive Member Role/Relationship Status Dates Dr. Sophie Avalos MD Primary care physician Active Start: September 04, 2025 End: September 05, 2025 Dr. Jose Blair MD Emergency Department Physician Ac tive Start: September 04, 2025 End: September 05, 2025 Goals (unrecognized section and content) Goals may be documented in a n alternate section FOR RECORDS PERTAINING TO PATIENTS WHO ARE OR HAVE BEEN ENROLLED IN A CHEMICAL DEPENDENCY/SUBSTANCEABUSE PROGRAM, SOME INFORMATION MAY BE OMITTED. This clinical summary was aggregated from multiple sources. Caution should be exercised in using it in the provision of clinical care. This summary normalizes information from multiple sources, and as a consequence, information in this document may materially change the coding, format and clinical context of patient data. In addition, data may be omitted in some cases. CLINICAL DECISIONS SHOULD BE BASED ON THE PRIMARY CLINICAL RECORDS. [employer] provides no warranty or guarantee of the accuracy or completeness of information in this document.
--- NOTE | 2025-09-21 05:39 | ED.VIS.GI ---
HPI HPI - GI History of Present Illness Chief Complaint: Abd Pain Informant: patient Narrative Narrative: Patient is a 30-year-old female presenting with severe abdominal pain, constipation, and nausea. - Reports severe abdominal pain across the abdomen, radiating to the back and right shoulder, persisting for over two weeks. - Associated symptoms include nausea, hot flashes, and fevers over the past few days. - Experiencing difficulty with bowel movements, with only 2 hard stools since her last visit; denies hematochezia. - Previously used Miralax but unable to continue due to insurance issues; tried GoLYTELY without significant relief. - Denies dysuria. - Scheduled to see her president and chief operating officer later today. - Surgical history includes laparoscopy, endoscopy, and cholecystectomy. [facility] Medical History Anemia ADHD Dermoid cyst of right ovary Migraines Seizures Anxiety Depression HPV (human papilloma virus) infection IBS (irritable bowel syndrome) Home Medications ?Medication ?Instructions ?Recorded ?Last Taken ?Type ferrous sulfate 325 mg (65 mg 325 mg PO DAILY 10/18/19 Unknown History iron) tablet topiramate 50 mg tablet 50 mg PO BID 03/16/20 Unknown History ondansetron 4 mg disintegrating 4 mg PO Q8H PRN PRN Nausea #10 tabs 07/31/22 Unknown Rx tablet naproxen 500 mg tablet (Naprosyn) 500 mg PO BID PRN pain #20 tabs 09/24/22 Unknown Rx tizanidine 4 mg capsule (Zanaflex) 4 mg PO Q8H PRN muscle spasticity 09/24/22 Unknown Rx #14 caps folic acid 1 mg tablet 1 mg PO DAILY 10/17/22 Unknown History albuterol sulfate 90 mcg/actuation 1 - 2 puff inhalation Q4H PRN PRN 01/09/23 Unknown Rx aerosol inhaler (Ventolin HFA) Wheezing #1 device ipratropium 0.5 mg-albuterol 3 mg 3 ml inhalation Q6H PRN shortness 01/09/23 Unknown Rx (2.5 mg base)/3 mL nebulization of breath or wheezing #180 mL soln nebulizer and compressor #1 ea 01/09/23 Unknown Rx promethazine 6.25 mg-codeine 10 5 ml PO 4X/DAY PRN PRN cough 7 01/09/23 Unknown Rx mg/5 mL syrup days #140 mL loperamide 2 mg capsule 2 mg PO Q6H PRN loose stool 4 days 02/11/23 Unknown Rx #10 caps duloxetine 60 mg capsule,delayed 60 mg PO DAILY 09/10/25 Unknown History release fremanezumab-vfrm 225 mg/1.5 mL 225 mg subcut QMONTH 09/10/25 Unknown History subcutaneous auto-injector (Ajovy) gabapentin 400 mg capsule 400 mg PO QHS 09/10/25 Unknown History hydroxyzine HCl 25 mg tablet 25 - 50 mg PO QHS PRN PRN insomnia 09/10/25 Unknown History levetiracetam 1,000 mg tablet 1,000 mg PO BID 09/10/25 Unknown History dicyclomine 20 mg tablet 20 mg PO Q6H PRN PRN abdominal 09/21/25 Unknown Rx discomfort #20 tabs Allergy/AdvReac Type Severity Reaction Status Date / Time amoxicillin Allergy Anaphylaxis Verified 09/21/25 04:44 bee venom protein (honey bee) Allergy Swelling Verified 09/21/25 04:44 etonogestrel (From Nexplanon) Allergy Swelling Verified 09/21/25 04:44 lidocaine Allergy Anaphylaxis Verified 09/21/25 04:44 mepivacaine (From Carbocaine) Allergy Swelling Verified 09/21/25 04:44 mushroom Allergy Other Verified 09/21/25 04:44 procaine (From Novocain) Allergy Swelling Verified 09/21/25 04:44 adhesive tape AdvReac Rash Verified 09/21/25 04:44 morphine AdvReac Other Verified 09/21/25 04:44 Surgical History Hx of cholecystectomy Hx of laparoscopy Social History household members: friend(s) Smoking Status: Current every day smoker tobacco type: cigarettes and e-cigarettes alcohol intake: current alcohol intake frequency: other substance use type: does not use ROS ROS ED Constitutional Constitutional ED: Denies chills or fever(s) Eyes Eyes: Denies change in vision or diplopia ENT ENT ED: Denies rhinorrhea or sore throat Cardiovascular Cardiovascular: Denies chest pain or palpitations Respiratory/Chest Respiratory/Chest: Denies cough or dyspnea Gastrointestinal Gastrointestinal: Reports abdominal pain, constipation and nausea; Denies diarrhea, hematemesis, hematochezia, melena or vomiting Genitourinary Genitourinary ED: Denies dysuria or hematuria Musculoskeletal Musculoskeletal: Denies back pain or neck pain Integumentary Denies abscess or rash Neurologic Neurologic: Denies headache(s), paresthesias or weakness Psychiatric Psychiatric: Denies anxiety or suicidal thoughts EXAM Physical Exam Const Vital Signs: 09/21/25 04:45 09/21/25 04:49 Temperature 99.3 F H Temperature Source Axillary Pulse Rate 103 H Respiratory Rate 16 Blood Pressure 103/76 Blood Pressure Mean 85 Pulse Ox 99 Oxygen Delivery Method Room Air Positive well nourished and well developed General Appearance ED: well developed and NAD HEENT Reports moist mucous membranes normocephalic and atraumatic Eyes PERRL and EOMs intact bilaterally Neck full ROM and supple Resp normal respiratory effort and clear to auscultation bilaterally Cardio regular rate, regular rhythm and no murmurs GI non-distended GI Narrative: Mild diffuse nonfocal tenderness no guarding or rebound Auscultation: normoactive bowel sounds Palpation: soft Back/Spine no CVA tenderness General Back: other FROM Extremity normal to inspection General Extremety ED: Negative for edema, pulses abnormal or tenderness General Extremity: Negative for edema or pulses abnormal Neuro oriented x3, CN's II-XII intact bilaterally and no sensory deficits noted Sensorium / Orientation: awake and alert Motor Exam: strength 5/5 throughout Skin no rashes or lesions noted and no wounds MDM MDM MDM Narrative Medical decision making narrative: Assessment: The patient is a 30-year-old female with PMH of prior cholecystectomy presenting for two-week history of diffuse periumbilical abdominal pain radiating to the right mid-back, associated constipation, and intermittent nausea. Vitals normal and she is well-appearing. Abdominal exam reveals mild, non-focal tenderness with normal bowel sounds. Given a normal acute abdominal series and normal laboratory panel including liver enzymes, acute bowel obstruction and cholangitis are unlikely. Findings of significant colonic stool burden without free air support constipation with colonic spasm as the most likely etiology of her pain. Also according to records has a history of irritable bowel syndrome which may also be contributing. Plan: - Administered ondansetron, dicyclomine (Bentyl), and ketorolac in ED for symptomatic relief - Administered oral magnesium citrate for catharsis; instructed patient to hydrate - Offered enema; patient declined - Prescribed dicyclomine for home use as needed for pain - Discharged home with return precautions and follow-up instructions Diagnostics: - Acute abdominal series: no evidence of acute obstruction or free air; significant colonic stool; nonspecific benign bowel gas pattern; chest normal. Independently interpreted by me, Justin Goldman. - Labs: complete metabolic panel and liver enzymes within normal limits Reevaluations: - Patient reports only marginal improvement after medications and magnesium citrate; comfortable with discharge plan Lab Data Attestation: I reviewed the patient's lab results. Labs: Laboratory Results - last 24 hr 09/21/25 04:50 WBC 10.5 RBC 4.76 Hgb 13.6 Hct 40.4 MCV 84.9 MCH 28.6 MCHC 33.7 RDW Std Deviation 40.6 RDW Coeff of Phi 13.1 Plt Count 335 MPV 9.5 Immature Gran % (Auto) 0.300 Neut % (Auto) 49.0 Lymph % (Auto) 37.6 Gregg % (Auto) 6.5 Eos % (Auto) 5.5 H Baso % (Auto) 1.1 H Absolute Neuts (auto) 5.2 Absolute Lymphs (auto) 3.95 Nucleated RBC % 0 Sodium 138 Potassium 3.9 Chloride 103 Carbon Dioxide 23.2 Anion Gap 12 BUN 9 Creatinine 0.71 Estim Creat Clear Calc 131.85 Est GFR (MDRD) Non-Af 119 BUN/Creatinine Ratio 13.3 Glucose 115 H Calcium 9.0 Total Bilirubin 0.16 AST 14 ALT 10 Alkaline Phosphatase 53 Total Protein 6.9 Albumin 4.2 Globulin 2.8 Albumin/Globulin Ratio 1.5 Lipase 53 Discharge Plan Triage Chief Complaint: Abd Pain ED Provider: Justin Goldman Dx/Rx/DC Orders Clinical Impression: Periumbilical abdominal pain, Constipation, Nausea, History of IBS Instructions: ED Constipation (Adult) Prescriptions: New dicyclomine 20 mg tablet 20 mg PO Q6H PRN PRN (Reason: abdominal discomfort) Qty: 20 0RF No Action ferrous sulfate 325 MG tablet 325 mg PO DAILY Patient Comments: Take 1 tablet by mouth twice daily with meals. topiramate 50 MG tablet 50 mg PO BID ondansetron [ondansetron] 4 mg tablet,disintegrating 4 mg PO Q8H PRN PRN (Reason: Nausea) Qty: 10 0RF tizanidine [Zanaflex] 4 mg capsule 4 mg PO Q8H PRN (Reason: muscle spasticity) Qty: 14 0RF naproxen [Naprosyn] 500 mg tablet 500 mg PO BID PRN (Reason: pain) Qty: 20 0RF folic acid 1 mg tablet 1 mg PO DAILY Patient Comments: Take 1 tablet by mouth once daily. albuterol sulfate [Ventolin HFA] 90 mcg/actuation HFA aerosol inhaler 1 - 2 puff inhalation Q4H PRN PRN (Reason: Wheezing) Qty: 1 2RF ipratropium-albuterol 0.5 mg-3 mg(2.5 mg base)/3 mL solution for nebulization 3 ml inhalation Q6H PRN (Reason: shortness of breath or wheezing) Qty: 180 1RF promethazine-codeine 6.25-10 mg/5 mL syrup 5 ml PO 4X/DAY PRN PRN (Reason: cough) 7 Days Qty: 140 0RF (DME) nebulizer and compressor Device See Rx Instructions .Route Qty: 1 0RF Rx Instructions: As directed loperamide 2 mg capsule 2 mg PO Q6H PRN (Reason: loose stool) 4 Days Qty: 10 0RF gabapentin 400 mg capsule 400 mg PO QHS hydroxyzine HCl 25 mg tablet 25 - 50 mg PO QHS PRN PRN (Reason: insomnia) duloxetine 60 mg capsule,delayed release(DR/EC) 60 mg PO DAILY levetiracetam 1,000 mg tablet 1,000 mg PO BID Ajovy Autoinjector 225 mg/1.5 mL auto-injector 225 mg SUBCUT QMONTH Patient Comments: Inject 1.5 mL subcutaneously once every month. Do not shake. Primary Care Provider: Galdino Nam Referrals: Galdino Nam MD [Primary Care Provider, Medical] - 1 Week if not improving Activity Restrictions/Additional Instructions: Consider trying fleets enemas which can be obtained [id number] from the pharmacy. They will help:-Related issues quicker specially constipation. Drink plenty of fluid after the magnesium citrate that you took which can act as a good nonaddictive laxative then. You may try the prescription dicyclomine to use as needed for abdominal discomfort as it is an antispasmodic for intestinal pain which is likely what is causing your abdominal discomfort right now. Print Language: Com[place]an Disposition Disposition: Home, Self Care
[2025-09-21 05:46] VITALS: BP 108/79; PULSE 68; RESP 18; TEMP 36.6; O2SAT 99
== END 2025-09-21 05:50 | disposition home or self-care (01) ==
PROVIDERS: Emergency Provider Emergency Medicine; PCP Family Medicine; Visit Provider Emergency Medicine
DX: R10.33 Periumbilical pain (principal); K59.00 Constipation, unspecified; F17.210 Nicotine dependence, cigarettes, uncomplicated; R11.0 Nausea; F17.290 Nicotine dependence, other tobacco product, uncomplicated; Z90.49 Acquired absence of other specified parts of digestive tract; K58.9 Irritable bowel syndrome, unspecified
CPT/HCPCS: 74022; 80053; 83690; 85025; 96372; 96374; 96375; 99284; A4216; J2405

== ENCOUNTER 2025-11-25 04:29 | Emergency (ER) | payer MEDICARE, MEDICAID, SELFPAY ==
[2025-11-25 04:30] VITALS: BP 136/77; PULSE 92; RESP 16; TEMP 36.6; O2SAT 100; BMI 31.2
--- OUTSIDE RECORDS SUMMARY | 2025-11-25 05:03 | XMS RPT_ITS | CCD ---
Author Organization [facility] Care Team Providers Care [employer] Driver Name Role Phone Germán ROXI, Roger Roth Unavailable Unava ilable Marva Lemus Unavailable Unavailable Fred Murphy Unavailable Unavailable Maurice Kwon Unavailable Unav ailable Sophie Avalos Unavailable Unavailable Joaquin Colon Unavailable Unavailable Manny Daniel Unavailable Unavailable Sophie Avalos Unavailable Unavailable Unavailable DR JOAQUIN COLON DO Primary Care Physician Sophie Avalos MD Primary Care Provider Sophie Avalos MD Primary Care Provider Sophie Avalos MD Primary Care Provider Sophie Avalos MD Primary Care Provider ALI, NOAMAN S Admitting Unavailable ALI, NOAMAN S Attending Unavailable WENDY, NOAMAN S Referring Unavailable SOPHIE AVLAOS Primary Care Unavailable WENDY, NOAMAN S Referring Unavailable SOPHIE AVALOS Primary Care Unavailable ALI, NOAMAN S Attending Unavailable SOPHIE AVALOS Primary Care Unavailable SOPHIE AVALOS Referring Unavailable SOPHIE AVALOS Primary Care Unavailable CECILIA CRAIG Attending Unavailable Sophie Avalos MD Primary Care Provider Elba CHOKE REAMER.Di VILLEGAS Unavailable Tamela CHOKE REAM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, Felipa A Unavailable [phone] Dr. Sophie Avalos MD Primary Care Provider [phone] Dr. Robles De La Torre DO Emergency Provider Robbie CHAND, Dr. Ahmadi Primary Care Physician Wil GARCÍA, Dr. Arboleda Attending Physician Wil GARCÍA, Dr. Arboleda Emergency Department Physic ede Johnnie CHAND, Dr. Garcia Emergency Department Physici an Johnnie CHAND, Dr. Garcia Attending Physician Madelin GARCÍA, Dr. Gilman Attending Physician Madelin GARCÍA, Dr. Gilman Emergency Department Physic ede Susi CHAND, Dr. Anderson Emergency Department Phys ician Mukul Yusuf Attending Unavailable Robbie, Sophie Primary Care Unavailable Jose Blair Attending Unavailable Quinwood, Sophie Primary Care Unavailable Robles De La Torre Attending Unavailable Robbie, Sophie Primary Care Unavailable Justin Goldman Attending Unavailable Robbie, Sophie Primary Care Unavailable HAAGEN, DI Referring Unavailable ROBBIE, SOPHIE J Primary Care Unavailable HAAGENDI Referring Unavailable ROBBIE, SOPHIE J Primary Care Unavailable DI ARREOLA Attending Unavailable ROBBIE, SOPHIE J Primary Care Unavailable ROBBIE, SOPHIE J Primary Care Unavailable SILVIA CHRISTENSEN Attending Unavailable SILVIA CHRISTENSEN Referring Unavailable ROBBIE, SOPHIE J Primary Care Unavailable MARIA TERESA JOHN Attending Unavailable SUPPAN, FELIPA A Referring Unavailable ROBBIE, SOPHIE J Primary Care Unavailable SUPPAN, FELIPA A Attending Unavailable SELF Referring Unavailable ROBBIE, SOPHIE J Primary Care Unavailable DI ARREOLA Attending Unavailable ROBBIE, SOPHIE J Primary Care Unavailable SUPPAN, FELIPA A Referring Unavailable ROBBIE, SOPHIE J Primary Care Unavailable SUPPAN, FELIPA A Attending Unavailable ROBBIE, SOPHIE J Primary Care Unavailable TRAVIS SALDIVAR Attending Unavailable MARIA TERESA JOHN Referring Unavailable ROBBIE, SOPHIE J Primary Care Unavailable JAKUB ROLDAN Attending Unavailable HAAGEN, DI Referring Unavailable ROBBIE, SOPHIE J Primary Care Unavailable RACHELE SONG Attending Unavailable HAAGEN, DI Referring Unavailable ROBBIE, SOPHIE J Primary Care Unavailable JAKUB ROLDAN Referring Unavailable ROBBIE, SOPHIE J Primary Care Unavailable DI ARREOLA Attending Unavailable ROBBIE, SOPHIE J Primary Care Unavailable Allergies Allergy Classification Reported Allergen(s) Allergy Type Date of Onset Reaction(s) Facility Bee/Wasp/Ant Venom (5 sources) apis mellifera venom Substance Allergy IS-VMIVS-Jkkw [facility] Work Phone: Lidocaine (5 sources) Lidocaine; Translations: [lidocaine] Drug Allergy KX-WJXZG-Lhcq [facility] Work Phone: Mepivacaine (5 sources) Mepivacaine; Translations: [Carbocaine HCl] Drug Allergy UP-ONXYW-Brtk [facility] Work Phone: Mushrooms (5 sources) Mushroom (edible) Food Allergy MG-OBGYN-T win [facility] Work Phone: Penicillins (antibiotic) (5 sources) Amoxicillin; Translations: [amoxicillin] Drug Allergy IJ-UAMNK-Eyzs [facility] Work Phone: (20 sources) Amoxicillin; Translations: [amoxicillin] Drug Allergy 12-01-19 18 Shortness of Breath FD-DEFUM-Eubl ord 44 Work Phone: (6 sources) apis mellifera venom Allergy to substance (finding) XG-JTTNA-Flhu ord 44 Work Phone: (20 sources) Lidocaine; Translations: [lidocaine] Drug Allergy 12-01-19 18 Swelling LO-JZTGP-Gopz ord 44 Work Phone: (6 sources) Mepivacaine; Translations: [Carbocaine HCl] Drug Allergy RL-QDVQH-Jmns ord 44 Work Phone: (6 sources) Mushroom (edible) Allergy to substance (finding) YX-GDDMA-Eqyq ord 44 Work Phone: (20 sources) Procaine; Translations: [Novocain SOLN] Drug Allergy 04-21-20 22 Unknown, Swelling HP-KPPBH-Sebv ord 44 Work Phone: (20 sources) Ethinyl Estradiol / Norethindrone; Translations: [ethinyl estradiol-norethi ndrone] Drug Allergy 06-29-20 22 Other: See [facility] (1 source) Penicillin; Translations: [penicillin] Drug Allergy [facility] (20 sources) cultivated mushroom extract; Translations: [MUSHROOM] Drug Allergy 12-01-19 18 Anaphylaxis [facility] Work Phone: Comment on above: 'throat swells up an d closes' (20 sources) Etonogestrel; Translations: [ETONOGESTREL] Drug Allergy 12-01-19 18 Swelling [facility] Work Phone: (20 sources) Mepivacaine; Translations: [MEPIVACAINE HCL] Drug Allergy 08-27-20 Unknown [facility] (20 sources) Procaine; Translations: [PROCAINE HCL] Drug Allergy 08-27-20 18 Unknown [facility] (9 sources) Adhesive Tape; Translations: [adhesive tape] Propensity to adverse reactions 04-21-20 [facility] (8 sources) Mepivacaine Drug Allergy 04-21-20 Swelling [facility] (20 sources) bee venom protein (honey bee); Translations: [BEE VENOM PROTEIN (HONEY BEE)] Allergy to substance 10-05-20 [facility] (20 sources) Adhesive Tape-Silicones; Translations: [ADHESIVE TAPE-SILICONES] Drug Intolerance 06-29-20 [facility] (2 sources) NORETHINDRONE AC-ETH ESTRADIOL; Translations: [NORETHINDRONE AC-ETH ESTRADIOL] Propensity to adverse reactions to drug (disorder) 06-29-20 [facility] Other [place] [facility] (2 sources) Morphine; Translations: [MORPHINE] Drug Allergy 09-10-20 [facility] Comment on above: makes me sleep to [facility] (1 source) Etonogestrel Drug Allergy 09-21-20 [facility] (1 source) Mepivacaine Drug Allergy 09-21-20 [facility] (1 source) Morphine Drug Allergy 09-21-20 [facility] (1 source) Mushroom (edible) Drug allergy (disorder) 09-21-20 [facility] (1 source) Procaine Drug Allergy 09-21-20 [facility] (1 source) bee venom protein (honey bee) Drug allergy (disorder) 09-21-20 [facility] (1 source) HYDROmorphone; Translations: [HYDROMORPHONE] Drug Allergy 09-11-20 [facility] Medications Current Medications Medication Drug Class(es) [...] 0 09/25/2022 09/30/2022 Active Start: 07-16-2021 End: 05-25-2022 take 1 tablet by mouth every six hours as needed HYDROcodone-acetaminophen (NORCO) 5-325 mg per tablet Take 1 tablet by mouth every 6 hours as needed. 07/16/2021 05/25/2022 Discontinued (Other) Start: 07-16-2021 take 1 tablet by misael th every six hours as needed Hydrocodone-Acetaminophen Active 1 TABLE T PO EVERY 6 HOURS NEEDED 08 31April 21, 2022 1:46pm Comment on above: Take 1 tablet by misael th every 6 hours as needed. Take 1 tablet by misael th every 8 hours as needed for pain for up to 5 days. [id number] 200 actuat albuterol 0.09 mg/actuat metered dose [...] NEEDED July 02, 2017 11:14pm Start: 07-02-2017 End: 09-21-2025 Albuterol Sulfate (Ventolin Hfa) 90 mcg/actuation HFA aerosol inhaler Active 1 - 2 NMA INHALATION EVERY 4 HOURS NEEDED as needed for Wheezing 1 2 January 09, 2023 1:00am Complies with drug therapy Start: 07-02-2017 Albuterol Sulf ate (Ventolin Hfa [...] / ipratropium bromide 0.167 mg/ml inhalation solution (5 sources) Anticholinergic, beta2-Adrenergic Agonist Start: 01-09-20 take 1 mL by inhalation every six hours as needed for wheezing Ipratropium-Albutero l 0.5 mg-3 mg(2.5 mg base)/3 mL solution for nebulization Active 3 mL INHALATION EVERY 6 HOURS as needed for shortness of breath or wheezing 180 January 09, 2023 1:00am Complies with drug therapy Start: 01-09-2023 take 1 mL by inhalat ion every six hours Ipratropium-Albuterol Active 3 ML INHALATION EVERY 6 HOURS 180 January 09, 2023 12:00am Azithromycin 5 Day [...] Comment on above: [facility] three times daily as needed for cough. clindamycin 150 mg oral capsule (11 sources) Lincosamide Antibacterial Start: take 450 mg by mouth three times daily Clindamycin Hcl Active 450 MG PO THREE TIMES A DAY 63 June 19, 2022 12:00am Start: 11-16-2021 take 300 mg by mouth four times daily Clindamycin Hcl Active 300 MG PO 4 TIMES DAILY November 16, 2021 5:44pm Start: 11-16-2021 End: [...] / promethazine hydrochloride 1.25 mg/ml oral solution (5 sources) Opioid Agonist, Phenothiazine Start: 01-09-20 take 1 mL by mouth four times daily as needed for cough Promethazine-Codeine 6.25-10 mg/5 mL syrup Active 5 mL PO 4 TIMES DAILY NEEDED as needed for cough 140 7 0 January 09, 2023 2:06am Exacerbation of asthma Unspecified asthma with (acute) exacerbation Complies with drug therapy Start: 01-09-2023 take 1 mL by mouth f our times daily as needed Promethazine-Codeine Active 5 ML PO 4 TIMES DAILY NEEDED 140 7 January 09, 2023 1:06am dicyclomine hydrochloride 20 mg oral tablet (8 sources) Anticholinergic Start: 09-21-2025 take 1 tablet by mouth every six hours as needed Start: 05-11-2019 take 1 capsule by mo uth four times daily as needed Dicyclomine HCl - 10 MG Oral Capsule TAKE 1 CAPSULE BY MOUTH FOUR TIMES DAILY NEEDED. MAY REDUCE DOSAGE Quantity: 120 Refills: 0 Ordered: 30-Nov-2019 Maurice Albrecht Start : 11-May-2019 Active doxycycline hyclate 100 mg oral capsule (4 sources) Tetracycline-class Drug Start: 08-08-2025 End: 08-15-2025 take 1 capsule by mouth twice daily doxycycline hyclate (VIBRAMYCIN) 100 mg capsule Take 1 capsule by mouth two times a day for 7 days. 14 capsule 08/08/2025 08/15/2025 Active DULoxetine 60 mg delayed release oral capsule (9 sources) Serotonin and Norepinephrine Reuptake Inhibitor Start: 09-10-2025 take 1 capsule by mouth once daily Duloxetine 60 mg capsule,delayed release(DR/EC) Active 60 mg PO DAILY September 10, 2025 12:00am Complies with drug therapy Start: 07-31-2025 take 1 capsule by mo uth once daily DULoxetine DR (CYMBALTA) 60 mg [...] sources) Start: 10-18-2019 take 1 tablet by mouth once daily Ferrous Sulfate 325 MG tablet Active 325 mg PO DAILY October 18, 2019 1:00am Complies with drug therapy Start: 06-16-2019 End: 05-01-2025 take 1 tablet by mouth twice daily at mealtime ferrous sulfate 325 mg (65 mg iron) tablet Indications: Anemia, unspecified type Take 1 tablet by mouth two times a day with meals. 180 tablet 1 05/01/2025 Active Comment on above: Take 1 tablet by misael th twice daily with meals. folic acid 1 mg oral tablet (20 sources) Start: 01-23-2022 End: 05-01-2025 take 1 tablet by mouth once daily Folic Acid 1 mg tablet Active 1 mg PO DAILY October 17, 2022 1:00am Complies with drug therapy Comment on above: Take 1 tablet by misael th once daily. 1.5 ml fremanezumab-vfrm 150 mg/ml auto-injector (7 sources) Start: 09-10-2025 Fremanezumab-Vfrm (Ajovy Autoinjector) 225 mg/1.5 mL auto-injector Active 225 mg SC EVERY MONTH September 10, 2025 12:00am Complies with drug therapy Start: 07-31-2025 inject 1.5 mL by sub cutaneous injection every month fremanezumab-vfrm (AJOVY AUTOINJECTOR) 225 mg/1.5 mL auto-injector Indications: Intractable chronic migraine without aura and without status migrainosus Inject 1.5 mL subcutaneously once every month. Do not shake. 1.5 mL 07/31/2025 Active gabapentin 400 mg oral capsule (16 sources) Anti-epileptic Agent Start: 05-01-2025 End: 10-28-2025 take 1 capsule by mouth at bedtime Gabapentin 400 mg capsule Active 400 mg PO AT BEDTIME September 10, 2025 12:00am Complies with drug therapy hydrOXYzine hydrochloride 25 mg oral tablet (17 sources) Antihistamine Start: 09-10-2025 take 25-50 mg by mouth at bedtime as needed Hydroxyzine Hcl 25 mg tablet Active 25 - 50 mg PO AT BEDTIME NEEDED as needed for insomnia September 10, 2025 12:00am Complies with drug therapy Start: 06-25-2025 take 25-50 mg by misael th every twenty-four hours as needed hydrOXYzine HCl [...] 1 tablet by misael th twice daily. levETIRAcetam 1000 mg oral tablet (16 sources) Start: 09-10-2025 take 1 tablet by mouth twice daily Levetiracetam 1,000 mg tablet Active 1000 mg PO TWICE A DAY September 10, 2025 12:00am Complies with drug therapy Start: 05-01-2025 End: 06-26-2025 take 1 tablet by mouth twice daily levETIRAcetam (KEPPRA) 1,000 mg tablet Take 1 tablet by mouth two times a day. 60 tablet 1 06/26/2025 Active loperamide hydrochloride 2 mg oral capsule (3 sources) Opioid Agonist Start: 02-11-2023 take 1 capsule by mouth every six hours as needed Loperamide 2 mg capsule Active 2 mg PO EVERY 6 HOURS as needed for loose stool 10 4 0 February 11, 2023 12:00am Complies with drug therapy meclizine hydrochloride 25 mg oral tablet (12 [...] above: Take 1 tablet by misael once daily for 7 days. Take with food. Nebulizer And Compressor (2 sources) Start: 01-09-20 Nebulizer And Compressor Active 0 .Route 1 January 09, 2023 12:00am As directed Nebulizer And Compressor device (3 sources) Start: 01-09-20 Nebulizer And Compressor device Active 0 .Route 1 January 09, 2023 1:00am As directed ondansetron 4 mg disintegrating oral tablet (6 sources) Serotonin-3 Receptor Antagonist Start: 07-31-20 take 1 tablet by mouth every eight hours as needed for nausea Ondansetron 4 mg tablet,disintegrati ng Active 4 mg PO EVERY 8 HOURS NEEDED as needed for Nausea 10 July 31, 2022 12:00am Complies with drug therapy polyethylene glycol 3350 17813 mg powder for oral solution (1 source) Osmotic Laxative Start: 09-10-20 End: 09-21-20 Polyethylene Glycol 3350 (Miralax) 17 gram/dose powder Discontinued 17 g PO DAILY 510 30 0 September 10, 2025 12:00am September 21, 2025 4:50am predniSONE 50 mg oral tablet (2 sources) [...] once daily. 90 tablet 1 06/25/2025 Active sulfamethoxazole 800 mg / trimethoprim 160 mg oral tablet (2 sources) Dihydrofolate Reductase Inhibitor Antibacterial, Sulfonamide Antimicrobial Start: 05-14-2022 End: 05-21-2022 take 1 tablet by mouth twice daily sulfamethoxazole-tr imethoprim (BACTRIM DS) 800-160 mg per tablet Take [...] Active Start: 09-24-2022 take 1 capsule by mo uth every eight hours as needed Tizanidine (Zanaflex) 4 mg capsule Active 4 mg PO Q8H as needed for muscle spasticity 14 September 24, 2022 12:00am Complies with drug therapy Comment on above: Take 4 mg by [...] oral solution (1 source) alpha-Adrenergic Agonist, Uncompetitive Q-qnrojp-V-aspartat e Receptor Antagonist, Sigma-1 Agonist Start: 05-30-2020 Pseudoeph-Bromphen [...] oral tablet (5 sources) alpha-Adrenergic Agonist, Uncompetitive A-jybmit-Y-aspartat e Receptor Antagonist, Sigma-1 Agonist Start: 10-28-2022 End: 12-24-2022 take 1 tablet by mouth every six hours as needed pseudoephedrine-DM -guaiFENesin (CAPMIST DM) 60-15-400 mg tab Indications: Viral URI with cough Take 1 tablet by mouth every 6 hours as needed. 30 tablet 0 10/28/2022 12/24/2022 Discontinued Comment on above: Take 1 tablet by misael every 6 hours as needed. escitalopram 5 mg oral tablet (1 source) [...] for pain or fever (specify). Rx by [employer] pt reported ovary pain 60 tablet 09/04/2022 [...] every 6 hours as needed. Rx by [employer] pt reported ovary pain Take 4 tablets by mo uth every 6 hours as needed for pain or fever (specify). Rx by [employer] pt reported ovary pain Take 600 mg [...] injection (DEPO-PROVERA) Start: 11-06-2021 End: 05-01-2025 medroxyPROGESTERone (DEPO-NC OVERA) 150 mg/mL injection Indications: Encounter for [...] mouth twice daily as needed for pain Naproxen (Naprosyn) 500 mg tablet Active 500 mg PO TWICE A DAY as needed for pain September 24, 2022 12:00am Complies with drug therapy Start: 05-26-2021 take 1 tablet by misael [...] Start Date: 02/23/19 Status: Ordered Start: 10-18-2017 End: 09-10-2025 take 1 tablet by mouth once daily Sertraline 100 MG tablet Discontinued 100 mg PO DAILY October 18, 2017 1:00am September 10, 2025 12:54am Sertraline HCl - 25 MG Oral Tablet [...] Ordered: 26-Aug-2020 DO Start : 26-Aug-2020 Complete sulfacetamide sodium 100 mg/ml ophthalmic solution (10 sources) Sulfonamide Antibacterial Start: 06-19-2022 End: 09-10-2025 Sulfacetamide Sodium 10 % drops Discontinued 2 NMA EACH EYE EVERY 4 HOURS NEEDED June 19, 2022 12:00am September 10, 2025 12:54am Start: 06-08-2022 End: 06-15-2022 take 2 drop(s) into the eye(s) every four hours sulfacetamide (BLEPH-10) 10 % ophthalmic solution Indications: Eyelid disorder Use 2 Drops in eyes every 4 hours for 7 days. 15 mL 06/08/2022 06/15/2022 Comment on above: Use 2 Drops in eyes every 4 hours for 7 days. SUMAtriptan 100 mg oral tablet (11 sources) Serotonin-1b and Serotonin-1d Receptor Agonist Start: 06-28-2018 SUMAtriptan Succinate 100 MG Oral Tablet Quantity: 9 Refills: [...] take 1 tablet by mouth twice daily Topiramate 50 MG tablet Active 50 mg PO TWICE A DAY March 16, 2020 12:00am Complies with drug therapy Comment on above: Take 1 tablet by [...] Chronic Chronic obstructive pulmonary disease and bronchiectasis (11 sources) Bronchitis; Translations: [Bronchitis, not specified as acute or chronic] Onset: 1 Episodic Contraceptive and procreative management (20 sources) Patient encounter status; Translations: [Surveillance of other contraceptive method] Resolved: 1 Episodic Deficiency and other anemia (1 source) Anemia; Translations: [Anemia, unspecified] 05-01-2025 Episodic Diabetes mellitus without complication (8 sources) Diabetic on diet only; Translations: [Type [...] 0 07-22-2020 Chronic Fluid and electrolyte disorders (4 sources) Mild dehydration; Translations: [Dehydration] 02-06-2023 Episodic Gastrointestinal hemorrhage (1 source) Melena; Translations: [Melena] Onset: 5 Episodic Genitourinary symptoms and ill-defined conditions (11 sources) Urinary incontinence; Translations: [Urinary incontinence, unspecified] Chronic Headache; including migraine (20 sources) Migraine; Translations: [Migraine, unspecified, not intractable, without status migrainosus] Onset: 0 07-22-2020 Chronic Headache; including migraine (3 sources) Acute headache; Translations: [Acute headache] 02-19-2023 Episodic Immunizations and screening for infectious disease (1 source) Suspected disease caused by 2019nCoV; Translations: [Suspected COVID-19 virus infection] 12-09-2021 Episodic Intracranial injury (8 sources) Concussion with no loss of consciousness; [...] depression type] Onset: 0 Nausea and vomiting (8 sources) Nausea; Translations: [Nausea] Episodic Nonmalignant breast conditions (1 source) Pain of breast; Translations: [Mastodynia] Episodic Nonspecific chest pain (20 sources) Chest wall pain; Translations: [Other chest pain] 08-26-2017 Episodic Open wounds of extremities (8 sources) Dog bite of forearm; Translations: [Open bite of right forearm, initial encounter] 11-24-2021 Episodic Other aftercare (11 sources) Surgical follow-up; Translations: [Follow-up examination, following surgery, unspecified] Episodic Other aftercare (6 sources) Follow-up status; Translations: [Unspecified follow-up examination] Episodic Other and unspecified benign neoplasm (8 sources) Mature cystic teratoma of right ovary; [...] foot] 08-10-2025 Episodic Other connective tissue disease (7 sources) Pain in left foot; Translations: [Pain [...] genital tract] Chronic Other female genital disorders (8 sources) Abnormal vaginal bleeding; Translations: [Abnormal uterine [...] broad ligament] Episodic Other female genital disorders (8 sources) Mass of uterine adnexa; Translations: [Other specified conditions associated with female genital organs and menstrual cycle] 05-20-2021 Episodic Other female genital disorders (2 sources) Pain in female perineum; Translations: [Perineal pain [...] Translations: [Diarrhea, unspecified] Episodic Other gastrointestinal disorders (3 sources) Constipation; Translations: [Constipation, unspecified] 09-04-2025 Episodic Other gastrointestinal disorders (1 source) History of irritable bowel syndrome; Translations: [Personal history of other diseases of the digestive system] 09-21-2025 Episodic Other gastrointestinal disorders (1 source) Constipation, unspecified; Translations: [Constipation, unspecified constipation type] Onset: Episodic Other injuries and conditions due to external causes (2 sources) Injury of finger of left hand; Translations: [Unspecified injury of left wrist, hand and finger(s), sequela] 05-01-2025 Episodic Other lower respiratory disease (11 sources) H/O: asthma; Translations: [Personal history of other diseases of respiratory system] Episodic Other lower respiratory disease (9 sources) Dyspnea; Translations: [Dyspnea, unspecified] 10-14-2021 Episodic [...] 0 09-16-2020 Episodic Other non-traumatic joint disorders (8 sources) Shoulder joint pain; Translations: [Pain in [...] ankle and joints of left foot; Translations: [Pain in left ankle and joints of left foot] Onset: 5 Episodic Other screening for suspected conditions (not mental disorders or infectious disease) (20 sources) Urine test negative; Translations: [ test negative] Resolved: 1 Episodic Other skin disorders (8 sources) Acute folliculitis; Translations: [Follicular disorder, unspecified] 10-16-2020 Episodic Other upper respiratory disease (3 sources) Bleeding from nose; Translations: [Epistaxis] 02-19-2023 Episodic Other upper respiratory infections (5 sources) Viral upper respiratory tract infection; Translations: [Acute upper respiratory infection, unspecified] Onset: 5 Episodic Otitis media and related conditions (2 sources) Acute left otitis media; Translations: [Otitis media, unspecified, left ear] Onset: 5 08-08-2025 Episodic Ovarian cyst (4 sources) Cyst of right ovary; Translations: [Unspecified ovarian cyst, right side] Onset: 5 09-04-2025 Episodic Residual codes; unclassified (8 sources) History of clinical finding in subject; Translations: [Personal history of other disorders of nervous system and sense organs] Episodic Residual codes; unclassified (1 source) Tobacco user; Translations: [Tobacco use] 08-08-2025 Episodic Residual codes; unclassified (1 source) Acquired absence of ovaries, unilateral; Translations: [History of right oophorectomy] Onset: 5 Episodic Residual codes; unclassified (1 source) Tobacco use; Translations: [Tobacco abuse] Onset: 5 Episodic Screening and history of mental health and substance abuse codes (20 sources) H/O: psychiatric disorder; Translations: [H/O: anxiety state] Episodic Skin and subcutaneous tissue infections (15 sources) Abscess of skin and/or subcutaneous tissue; [...] Translations: [Acute cough] Onset: 5 Viral infection (6 sources) Viral disease; Translations: [Viral infection, unspecified] [...] Test Name Value Interpretation Reference Range Facility [id number] 10-03-2025 [id number] O ID: [id number] Author: TRAVIS SALDIVAR PT Service: ? Author Type: Physical Therapist Type: [id number] Filed: 10/03/2025 13:13 Note Text: [facility] Physical Therapy Plan of Care Certification Patient Name: Per Farmer : 1995 [facility] #: [id number] Date: 10/03/2025 To: Maria Teresa John DPM From Therapist: Travis Saldivar PT RE: Patient Certification/ Recertification Your review, approval and electronic signature are required in order to comply with Payor: MEDICARE / Plan: MEDICARE A AND B / Product Type: Medicare / regulations. The identified Physical Therapy PLAN OF CARE for the patient is as follows: M25.572 Acute left ankle pain S93.402A Sprain of left ankle, unspecified ligament, initial encounter PLAN OF CARE: Assessment: Per Farmer presents with diagnosis of L ankle sprain/pain that interferes with walking, stair negotiation, lifting, standing . The patient presents with impairments in ADL's, balance, flexibility, gait, independence in exercise, overall function, range of motion, soft tissue healing, strength, symptom management, and tissue tenderness. PROMIS? (Patient-Reported Outcomes Measurement Information System) scores were reviewed and identified as a rehabilitation concern. Prognosis for therapy is Excellent due to: current objective clinical presentation, good overall health status, acuteness of condition, within-session changes, good support system/ coping skills. The patient will benefit from skilled therapy services to meet the goals established for this plan of care as noted below. Goals for Episode of Care: established 10/03/25 Patient reported outcome of physical function will increase T-score by a minimum 5 points. [place] in home exercise program. Patient will decrease pain to 0/10 at rest and with functional activities to allow patient to improve ambulation and standing tolerance for ADLs. Patient will increase active ROM of L ankle to WFL, symmetrical and pain-free to allow pt to to improve gait mechanics / gait pattern . Perform stairs, walking and standing without pain. Increased strength of L ankle/LE to WFL for symmetrical number of reps with L SLS heel raises. Normal gait. Patient will ascend and descend 40 8 steps with rail with no device independently and safe technique demonstrating step over step pattern. Patient will demonstrate improved neuromuscular coordination as evidenced by improve function for prior functional tasks. Patient Goals: regain prior functional level Time Frame for Goals and Treatment : 11/14/25 Planned Interventions, Frequency, and Duration: Current Frequency: 1x/week Duration: 6 weeks Total Number of Visits Planned: 6 Planned Treatment Interventions: Therapeutic exercise (46016), Manual therapy (36989), Neuromuscular re-education (41143), Therapeutic activities (41443), Self-correction management (25740), Gait Training (52400), Patient/Family/Caregiver Education, Body Mechanics Training, Functional training PLAN FOR NEXT VISIT: Review, correct and progress HEP to tolerance. Continue with therex to improve pain, ROM, strength, proprioception and balance to restore prior functional level. Gait training to normalize gait with brace now that she has transitioned out of boot an into brace. Patient demonstrates good understanding of plan of care and treatment. The above goals and plan of care were discussed and agreed upon by patient/family. For further details regarding this patient refer to the Physical Therapy electronically documented visit dated 10/03/2025. Provider Attestation I have reviewed the treatment plan for Per Farmer, CCF# [id number] for the period of 10/03/25 -- 11/14/25, established on 10/03/2025. Signature certifies the need for therapy services. Normal [facility] CNTHERAPYon 10-03-2025 CNTHERAPY OT/PT/Speech Visit ( PTWS) PER FARMER ([id number]) 1995 F DEF Date Time Provider Department 10/03/25 10:45 AM TRAVIS SALDIVAR PTGABE Date Time Provider Department [place] 10/03/2025 10:45 AM [id number], BRENT PTWS Alejo Hand Reason for Visit: PT Eval [747] Physical Therapy [503] Visit Diagnoses:Acute left ankle pain [M25.572] Sprain of left ankle, unspecified ligament, initial encounter [S93.402A] Allergies As of Date: 10/03/2025 Noted Allergy Reaction AMOXICILLIN 12/01/2017 12 - Shortness of Breath BEE VENOM PROTEIN (HONEY BEE) 10/05/2021 7 - Swelling DILAUDID (HYDROMORPHONE) 09/11/2025 10 - Anaphylaxis LIDOCAINE 12/01/2017 7 - Swelling MUSHROOM 12/01/2017 10 - Anaphylaxis NEXPLANON (ETONOGESTREL) 12/01/2017 7 - Swelling ADHESIVE TAPE-SILICONES 06/29/2022 2 - Rash CARBOCAINE (MEPIVACAINE HCL) 08/27/2018 16 - Unknown MORPHINE 09/10/2025 11 - Vomiting NORETHINDRONE AC-ETH ESTRADIOL 06/29/2022 14 - Other: See Comments NOVACAIN (PROCAINE HCL) 08/27/2018 16 - Unknown Date Reviewed: 09/21/2025 Reviewed by: Jakub Roldan APRN.GEAR MACHINIST - Fully Assessed Prescriptions as of 10/03/2025 - albuterol HFA (VENTOLIN HFA) 90 mcg/actuation inhaler Inhale 2 puffs as instructed every 4 hours as needed for wheezing/shortness of breath. - folic acid 1 mg tablet Take 1 tablet by mouth once daily. - ferrous sulfate 325 mg (65 mg iron) EC tablet Take 1 tablet by mouth once daily. - hydrOXYzine pamoate (VISTARIL) 50 mg capsule Take 1 capsule by mouth once daily. - DULoxetine DR (CYMBALTA) 60 mg capsule Take 1 capsule by mouth once daily. - ipratropium-albuterol (DUONEB) 0.5 mg-3 mg(2.5 mg base)/3 mL nebu albuterol 0.833 mg/ml / ipratropium bromide 0.167 mg/ml inhalation solution (4 sources) Anticholinergic, beta2-Adrenergic Agonist Start: 01-09-2023 take 1 mL by inhalation every six hours as needed for wheezing - blood sugar diagnostic (ONETOUCH ULTRA TEST) test strip Use with blood glucose test once daily - levETIRAcetam (KEPPRA) 1,000 mg tablet Take 1 tablet by mouth two times a day. - Lancets Test blood sugar(s) 2 times daily. Dx: Type 2 DM - Controlled E11.9 Insulin: No - gabapentin (NEURONTIN) 400 mg capsule Take 1 capsule by mouth daily at bedtime for 180 days. Normal [facility] 10[facility]02[facility]20[facility] PER FARMER ([id number]) 1995 F DEF Date Time Provider Department 10/02/25 JAKUB ROLDAN During your visit today, we recorded the following information about you: Rose Alarcon RN 10/02/2025 3:01 PM Signed Jakub Roldan APRN.BAKARI 10/02/25 1:26 PM Note Please notify pt (she has a hearing deficit, please refer to her medical history) - Her pelvic US finding are as follows: She has a very small cyst on her left ovary called a hemorrhagic cyst that happens when her body releases an egg. The cyst is a normal part of the menstrual cycle and usually goes away on its own in a few weeks to a couple of months. It does not need any follow-up. Jakub Roldan APRN.Rose Whitley RN 10/02/2025 3:01 PM Signed Left message for patient to call office. EDNA Campa Trisha, RN 10/03/2025 4:35 PM Signed Patient notified. Rose Alarcon RN Allergies As of Date: 10/02/2025 Noted Allergy Reaction AMOXICILLIN 12/01/2017 12 - Shortness of Breath BEE VENOM PROTEIN (HONEY BEE) 10/05/2021 7 - Swelling DILAUDID (HYDROMORPHONE) 09/11/2025 10 - Anaphylaxis LIDOCAINE 12/01/2017 7 - Swelling MUSHROOM 12/01/2017 10 - Anaphylaxis NEXPLANON (ETONOGESTREL) 12/01/2017 7 - Swelling ADHESIVE TAPE-SILICONES 06/29/2022 2 - Rash CARBOCAINE (MEPIVACAINE HCL) 08/27/2018 16 - Unknown MORPHINE 09/10/2025 11 - Vomiting NORETHINDRONE AC-ETH ESTRADIOL 06/29/2022 14 - Other: See Comments NOVACAIN (PROCAINE HCL) 08/27/2018 16 - Unknown Date Reviewed: 09/21/2025 Reviewed by: Jakub Roldan APRN.CNP - Fully Assessed Reason for Visit: Results [95] Prescriptions as of 10/03/2025 - albuterol HFA (VENTOLIN HFA) 90 mcg/actuation inhaler Inhale 2 puffs as instructed every 4 hours as needed for wheezing/shortness of breath. - folic acid 1 mg tablet Take 1 tablet by mouth once daily. - ferrous sulfate 325 mg (65 mg iron) EC tablet Take 1 tablet by mouth once daily. - hydrOXYzine pamoate (VISTARIL) 50 mg capsule Take 1 capsule by mouth once daily. - DULoxetine DR (CYMBALTA) 60 mg capsule Take 1 capsule by mouth once daily. - ipratropium-albuterol (DUONEB) 0.5 mg-3 mg(2.5 mg base)/3 mL nebu albuterol 0.833 mg/ml / ipratropium bromide 0.167 mg/ml inhalation solution (4 sources) Anticholinergic, beta2-Adrenergic Agonist Start: 01-09-2023 take 1 mL by inhalation every six hours as needed for wheezing - blood sugar diagnostic (OravelTOUCH ULTRA TEST) test strip Use with blood glucose test once daily - levETIRAcetam (KEPPRA) 1,000 mg tablet Take 1 tablet by mouth two times a day. - Lancets Test blood sugar(s) 2 times daily. Dx: Type 2 DM - Controlled E11.9 Insulin: No - gabapentin (NEURONTIN) 400 mg capsule Take 1 capsule by mouth daily at bedtime for 180 days. Problem List As Of Date 10/02/2025 Noted Resolved Chronic RLQ pain [R10.31, G89.29] [...] Biliary colic [K80.50] 12/24/2022 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] Cyst of left ovary [N83.202] 09/21/2025 Encounter Status:Closed by ROSE ALARCON on 10/03/25 Normal [facility] Absolute lymphocyte countOrd ered By: Justin Goldman on 09-21-2025 Lymphocytes Auto (Unsp spec) [#/Vol] 3.95 10*3/uL 0.83-4.51 [facility] Absolute neutrophil countOrd ered By: Justin Goldman on 09-21-2025 Neutrophils (Bld) [#/Vol] 5.2 10*3/uL 2.0-7.7 [facility] Acute Abdomen Inc Cheston Acute Abdomen Inc Chest [facility] Imaging Services [address] [place] [address] [id number] Acute Abdomen Inc Chest MR#: [id number] Acct: [id number] Name: PER FARMER Rep #: [id number] : 1995 F 30 From: Demian Bailey MD PCP: Dr. Sophie Avalos MD Status: DEP ER Study: Acute Abdomen Inc Chest Date of Exam: 09/21/25 Exam# [id number] Ordering Dr: Justin Goldman MD PROCEDURE: ACUTE ABDOMEN INC CHEST 09/21/2025 REASON FOR EXAM: DIFFUSE ABD PAIN, NAUSEA TECHNIQUE: Procedure Code: RADABDCA Modality: DX Procedure: ACUTE ABDOMEN INC CHEST COMPARISON: Previous CT from 09/10/2020 FINDINGS: Hardware: None Heart: The heart size is normal. Lungs: The lungs are clear. Bowel gas: Bowel-gas pattern is unremarkable, retained stool noted in the colon Free air: None Calcifications: No suspicious calcifications Bones: The bones are unremarkable. Other: RAD/Acute Abdomen Inc Chest IMPRESSION: No acute pulmonary, abdominal, or pelvic process. Moderate retained stool Reading Location: [facility] CC: Dr. Justin Goldman MD; Dr. Sophie Avalos MD Pruner: Signed Normal [facility] Anion gap in Serum or Plasma Ordered By: Justin Goldman on 09-21-2025 Anion gap [Moles/Vol] 12 mmol/L 04-12 [facility] Automated lymphocyte count a s percentage of total leukocytesOrdered By: Justin Goldman on 09-21-2025 Lymphocytes/100 WBC Auto (Unsp spec) 37.6 % [facility] BUN/creatinine ratioOrdered By: Justin Goldman on 09-21-2025 Urea nitrogen/Creatinine [Mass ratio] 13.3 mg/mg 09-17 [facility] Basophil percentageOrdered B y: Justin Goldman on 09-21-2025 Basophils/100 WBC (Bld) 1.1 % High 0-1 [facility] Bilirubin, totalOrdered By: Justin Goldman on 09-21-2025 Bilirubin [Mass/Vol] 0.16 mg/dL 0.00-1.30 [facility] CBC W/Diff, Automatedon 08-30 Absolute Lymph 3.95 X10 3/uL Normal 0.83-4.51 [facility] Comment on above: Performed By: #### L 500.4050, L501.2450, L100.0100 ####[facility] [address] [place], [address] Absolute Neut 5.2 X10 3/uL Normal 2.0-7.7 [facility] Comment on above: Performed By: #### L 500.4050, L501.2450, L100.0100 ####[facility] [address] [place], [address] Basophils/100 WBC (Bld) 1.1 % High 0-1 [facility] Comment on above: Performed By: #### L 500.4050, L501.2450, L100.0100 ####[facility] [address] [place], [address] Eosinophils/100 WBC (Bld) 5.5 % High 0-5 [facility] Comment on above: Performed By: #### L 500.4050, L501.2450, L100.0100 ####[facility] [address] [place], [address] Erythrocyte distribution width (RBC) [Ratio] 13.1 % Normal 11.6-14.6 [facility] Comment on above: Performed By: #### L 500.4050, L501.2450, L100.0100 ####[facility] [address] [place], [address] Hematocrit (Bld) [Volume fraction] 40.4 % Normal 37-47 [facility] Comment on above: Performed By: #### L 500.4050, L501.2450, L100.0100 ####[facility] [address] [place], [address] Hemoglobin (Bld) [Mass/Vol] 13.6 g/dL Normal 12.0-15.0 [facility] Comment on above: Performed By: #### L 500.4050, L501.2450, L100.0100 ####[facility] [address] [place], [address] IG% 0.300 Normal 0.0-0.9 [facility] Comment on above: Result Comment: IG% - Immature Granulocytes (promyelocytes, myelocytes and metamyelocytes) > 1% indicates that a LEFT SHIFT is Present. Performed By: #### L 500.4050, L501.2450, L100.0100 ####[facility] [address] [place], [address] Lymphocytes/100 WBC (Bld) 37.6 % Normal 19-41 [facility] Comment on above: Performed By: #### L 500.4050, L501.2450, L100.0100 ####[facility] [address] [place], [address] MCH (RBC) [Entitic mass] 28.6 pg Normal 27.0-32.0 [facility] Comment on above: Performed By: #### L 500.4050, L501.2450, L100.0100 ####[facility] [address] [place], [address] MCHC (RBC) [Mass/Vol] 33.7 g/dL Normal 32-36 [facility] Comment on above: Performed By: #### L 500.4050, L501.2450, L100.0100 ####[facility] [address] [place], [address] MCV (RBC) [Entitic vol] 84.9 fL Normal 81-99 [facility] Comment on above: Performed By: #### L 500.4050, L501.2450, L100.0100 ####[facility] [address] [place], [address] Monocytes/100 WBC (Bld) 6.5 % Normal 0-10 [facility] Comment on above: Performed By: #### L 500.4050, L501.2450, L100.0100 ####[facility] [address] [place], [address] Neutrophils/100 WBC (Bld) 49.0 % Normal 47-70 [facility] Comment on above: Performed By: #### L 500.4050, L501.2450, L100.0100 ####[facility] [address] [place], [address] Nucleated RBC (Bld) [#/Vol] 0 10*3/uL Normal 0-5 [facility] Comment on above: Performed By: #### L 500.4050, L501.2450, L100.0100 ####[facility] [address] [place], [address] Platelet mean volume (Bld) [Entitic vol] 9.5 fL Normal 6.2-12.0 [facility] Comment on above: Performed By: #### L 500.4050, L501.2450, L100.0100 ####[facility] [address] [place], [address] Platelets (Bld) [#/Vol] 335 10*3/uL Normal 150-450 [facility] Comment on above: Performed By: #### L 500.4050, L501.2450, L100.0100 ####[facility] [address] [place], [address] RBC (Bld) [#/Vol] 4.76 10*6/uL Normal 4.2-5.4 [facility] Comment on above: Performed By: #### L 500.4050, L501.2450, L100.0100 ####[facility] [address] [place], [address] RDW SD 40.6 fl Normal 35.1-43.9 [facility] Comment on above: Performed By: #### L 500.4050, L501.2450, L100.0100 ####[facility] [address] [place], [address] WBC (Bld) [#/Vol] 10.5 10*3/uL Normal 4.4-11.0 [facility] Comment on above: Performed By: #### L 500.4050, L501.2450, L100.0100 ####[facility] [address] [place], [address] CNOVon 09-21-2025 CNOV Office Visit (GENSWS ) PER FARMER ([id number]) 1995 F DEF Date Time Provider Department 09/21/25 3:30 PM RACHELE SONG GENSAVAGE During your visit today, we recorded the following information about you: Pulse Respiration Blood pressure Weight 80/minute 14/minute 105/73 79.4 kg Rachele Song APRN.CNP 09/21/2025 4:14 PM Signed HISTORY AND PHYSICAL Per Farmer : 1995 REFERRING PHYSICIAN: Di Arreola [address] [facility] [address] Recording using [employer] software for draft documentation of the visit was discussed with the patient/authorized vendor representatives; all questions welcomed and answered. Patient/authorized vendor representatives agreed to proceed CHIEF COMPLAINT: Patient presents with: Abdominal Mass Abdominal Pain: Abdominal pain for past 2 months HPI: Per is a 30 year old female referred for endoscopy. Per was seen in [facility] ED RESTROOMS [facility] [place] on 09/21/25 for abd pain -radiating to the back AND right shoulder x 2 weeks. -nausea and fever -notes only 2 hard bm in 10 days -was using miraLAX but unable to continue d/t insurance issues- golytely didn't give any relief -was given dose of bentyl in ED AND sent home with script -given mag citrate, pt decline enema Abd XRAY IMPRESSION: No acute pulmonary, abdominal, or pelvic process. Moderate retained stool Per notes abdominal pain. -all over -07/08 currently -notes bentyl has not made any improvement -taking naproxen but not recently Per notes diarrhea. Per notes constipation. -2.5 to 3 months -tried gavilyte -ED gave mag citrate and had BM today, family notes improvement in bloating -notes minimal water intake Per notes melena. -longer than the last 2 to 3 mos, since beginning of April Per denies bright red blood per rectum. Per notes family history of colon issues. Maternal grandmother with colon cancer Per notes heartburn. -GERD, lactose intolerance, IBS -does not take anything for heart burn relief Per notes dysphagia. Per denies a history of ulcers/ peptic ulcer disease. Per notes hx of cholecystectomy (2022). CT Abd/pelv from ED visit on 09/10/25 IMPRESSION: The previously described 2.5 cm right adnexal cyst is not identified on the current exam. Unchanged 2.8 cm left ovarian cyst. Prior cholecystectomy. Moderate amount of fecal residue in the large bowels. Fluid-filled small bowels, nonspecific finding. 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 Per has undergone prior endoscopy. Last EGD AND colonoscopy was 06/[address] Medina at [place]. Sedation: MAC EGD Impression: - Normal examined jejunum. Biopsied. - Duodenitis. - Gastritis. Biopsied. - Normal gastroesophageal junction. - Normal lower third of esophagus. Biopsied. - Normal middle third of esophagus. Biopsied. COLONOSCOPY Impression: - The examined portion of the ileum was normal. Biopsied. - The entire examined colon is normal. Biopsied. - The distal rectum and anal verge are normal on retroflexion view. CONVERTED FINAL DIAGNOSIS 1. Esophagus, distal and mid, [...] Colonic mucosa with no significant pathologic change. ECS/dsh 07/23/2020 Current Outpatient Medications Medication Sig folic acid 1 mg tablet Take 1 mg by mouth once daily. ipratropium-albuterol (DUONEB) 0.5 mg-3 mg(2.5 mg base)/3 mL nebu albuterol 0.833 mg/ml / ipratropium bromide 0.167 mg/ml inhalation solution (4 sources) Anticholinergic, beta2-Adrenergic Agonist Start: 01-09-2023 take 1 mL by inhalation every six hours as needed for wheezing ferrous sulfate 325 mg (65 mg iron) EC tablet Take 1 tablet by mouth once daily. hydrOXYzine pamoate (VISTARIL) 50 mg capsule Take 50 mg by mouth. polyethylene glycol 3350 17 gram/dose powder Use as directed for Miralax / Sports Drink Bowel Prep Kit sports drink Use as directed for Miralax / Sports Drink Bowel Prep Kit Bisacodyl (DULCOLAX) 5 mg tab Use as directed for Miralax / Sports Drink Bowel Prep Kit blood sugar diagnostic (ONETOUCH ULTRA TEST) test strip Use with blood glucose test once daily DULoxetine DR (CYMBALTA) 60 mg capsule Take 1 capsule by mouth once daily. albuterol HFA (VENTOLIN HFA) 90 mcg/actuation inhaler Inhale 2 puffs as instructed every 4 hours as needed. levETIRAcetam (KEPPRA) 1,000 mg tablet Take 1 tablet by mouth two time (more content not included)... Normal [facility] CNOV Office Visit (OBGYWM ) PER FARMER ([id number]) 1995 F DEF Date Time Provider Department 09/21/25 2:30 PM JAKUB ROLDAN OBGYWIra During your visit today, we recorded the following information about you: Blood pressure Weight Last Period 114/76 79.8 kg 08/29/25 Jakub Roldan APRN.GEAR MACHINIST 09/21/2025 8:41 PM Signed Crisis Nurse offered: Patient declines. Obstetrics and Gynecology [place] [facility] [employer] Visit Subjective Recording using [employer] software for draft documentation of the visit was discussed with the patient/authorized vendor representatives; all questions welcomed and answered. Patient/authorized vendor representatives agreed to proceed CHIEF COMPLAINT: The patient is a 30-year-old female with chronic constipation and a known 2.8 cm left ovarian cyst, presenting for evaluation of left-sided abdominal and back pain. HPI: The patient is a 30-year-old female with a history of endometrioma and chronic constipation presenting for evaluation of abdominal pain and left ovarian cyst. Abdominal Pain - Underwent a right laparoscopic salpingo-oophorectomy on 08/11/24 in [place] for an endometrioma. - Has visited the ER three times (on the , , and this morning) for abdominal pain since the surgery. - Reports left-sided abdominal pain radiating to the back. Also has pain to right shoulder. - CT scan at [facility] on the revealed a 2.8 cm left ovarian cyst and constipation. - Reports chronic constipation, with bowel movements sometimes occurring only once a week. - First liquid bowel movement today after taking magnesium citrate. - Has a history of cystic tumors and has been dealing with cysts since age 20. - Surgeon mentioned that if the left ovarian cyst gets much bigger, a hysterectomy would be recommended.. 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 Prediabetes PTSD (post-traumatic stress disorder) Seizures ([facility]) 12/01/2017 psychogenic nonepileptical Tobacco use disorder Trichomoniasis 2018 treated PAST SURGICAL HISTORY Procedure Laterality Date COLONOSCOPY FLX DX W/COLLJ SPEC WHEN PFRMD 07/22/2020 Colonoscopy ESOPHAGOGASTRODUODENOSCOPY TRANSORAL DIAGNOSTIC 07/22/2020 EGD HYSTEROSCOPY DIAGNOSTIC 06/21/2019 for AUB, x2 LYSIS OF ADHESIONS 06/21/2019 diagnostic for chronic pelvic pain, omental adhesions to ant. abd. wall, pelvis normal, op report scanned SALPINGO-OOPHORECTOMY Right 08/11/2024 Dr. Zain Her; [place], [place] FAMILY HISTORY Adopted: Yes Problem Relation Age of Onset Colon Cancer Maternal Grandmother SOCIAL HISTORY[1] Current Outpatient Medications Medication Sig folic acid 1 mg tablet Take 1 mg by mouth once daily. ipratropium-albuterol (DUONEB) 0.5 mg-3 mg(2.5 mg base)/3 mL nebu albuterol 0.833 mg/ml / ipratropium bromide 0.167 mg/ml inhalation solution (4 sources) Anticholinergic, beta2-Adrenergic Agonist Start: 01-09-2023 take 1 mL by inhalation every six hours as needed for wheezing ferrous sulfate 325 mg (65 mg iron) EC tablet Take 1 tablet by mouth once daily. hydrOXYzine pamoate (VISTARIL) 50 mg capsule Take 50 mg by mouth. polyethylene glycol 3350 17 gram/dose powder Use as directed for Miralax / Sports Drink Bowel Prep Kit sports drink Use as directed for Miralax / Sports Drink Bowel Prep Kit Bisacodyl (DULCOLAX) 5 mg tab Use as directed for Miralax / Sports Drink Bowel Prep Kit blood sugar diagnostic (CONWEAVERUCH ULTRA TEST) test strip Use with blood glucose test once daily DULoxetine DR (CYMBALTA) 60 mg capsule Take 1 capsule by mouth once daily. albuterol HFA (VENTOLIN HFA) 90 mcg/actuation inhaler Inhale 2 puffs as instructed every 4 hours as needed. levETIRAcetam (KEPPRA) 1,000 mg tablet Take 1 tablet by mouth two times a day. Lancets Test blood sugar(s) 2 times daily. Dx: Type 2 DM - Controlled E11.9 Insulin: No gabapentin (NEURONTIN) 400 mg capsule Take 1 capsule by mouth daily at bedtime for 180 days. No current facility-administered medications for this visit. ALLERGIES Allergen Reactions Amoxicillin Shortness of Breath Bee Venom Protein (* Swelling Dilaudid [Hydromorp* Anaphylaxis Lidocaine Swelling Mushroom Anaphylaxis Nexplanon [Etonoges* Swelling Adhesive Tap (more content not included)... Normal [facility] Carbon dioxide, total [Moles /volume] in Central venous bloodOrdered By: Justin Goldman on 09-21-2025 CO2 [Moles/Vol] 23.2 mmol/L 21.0-32.0 [facility] Chloride assayOrdered By: Iron Goldman on 09-21-2025 Chloride [Moles/Vol] 103 mmol/L 98-108 [facility] Comprehensive Metabolic Prof ilon 09-21-2025 Albumin [Mass/Vol] 4.2 g/dL Normal 3.5-5.0 [facility] Comment on above: Performed By: #### L 500.4050, L501.2450, L100.0100 ####[facility] [address] [place], [address] Albumin/Globulin [Mass ratio] 1.5 {ratio} Normal 0.9-2.4 [facility] Comment on above: Performed By: #### L 500.4050, L501.2450, L100.0100 ####[facility] [address] [place], [address] ALK PHOS 53 U/L Normal 35-104 [facility] Comment on above: Performed By: #### L 500.4050, L501.2450, L100.0100 ####[facility] [address] [place], [address] ALT [Catalytic activity/Vol] 10 U/L Normal <=34 [facility] Comment on above: Performed By: #### L 500.4050, L501.2450, L100.0100 ####[facility] [address] [place], [address] AST [Catalytic activity/Vol] 14 U/L Normal <=31 [facility] Comment on above: Performed By: #### L 500.4050, L501.2450, L100.0100 ####[facility] [address] [place], [address] Bilirubin [Mass/Vol] 0.16 mg/dL Normal 0.00-1.30 [facility] Comment on above: Performed By: #### L 500.4050, L501.2450, L100.0100 ####[facility] [address] [place], [address] BUN/CRE 13.3 RATIO Normal 10-20 [facility] Comment on above: Performed By: #### L 500.4050, L501.2450, L100.0100 ####[facility] [address] [place], [address] Calcium [Mass/Vol] 9.0 mg/dL Normal 7.6-11.0 [facility] Comment on above: Performed By: #### L 500.4050, L501.2450, L100.0100 ####[facility] [address] [place], [address] Chloride [Moles/Vol] 103 mmol/L Normal 98-108 [facility] Comment on above: Performed By: #### L 500.4050, L501.2450, L100.0100 ####[facility] [address] [place], [address] CO2 [Moles/Vol] 23.2 mmol/L Normal 21.0-32.0 [facility] Comment on above: Performed By: #### L 500.4050, L501.2450, L100.0100 ####[facility] [address] [place], [address] Creatinine [Mass/Vol] 0.71 mg/dL Normal 0.70-1.20 [facility] Comment on above: Performed By: #### L 500.4050, L501.2450, L100.0100 ####[facility] [address] [place], [address] ECRCL 131.85 ml/min Normal 50-250 [facility] Comment on above: Performed By: #### L 500.4050, L501.2450, L100.0100 ####[facility] [address] [place], [address] GAP 12 Normal 5-15 [facility] Comment on above: Performed By: #### L 500.4050, L501.2450, L100.0100 ####[facility] [address] [place], [address] GFR/1.73 sq M.predicted among non-blacks MDRD (S/P/Bld) [Vol rate/Area] 119 mL/min/{1.73_m2} Normal >60 [facility] Comment on above: Result Comment: mL/m in/1.73m2 CKD-EPI Creatinine Equation (2020) Performed By: #### L 500.4050, L501.2450, L100.0100 ####[facility] [address] [place], [address] Globulin (S) [Mass/Vol] 2.8 g/dL Normal 2.2-4.2 [facility] Comment on above: Performed By: #### L 500.4050, L501.2450, L100.0100 ####[facility] [address] [place], [address] Glucose [Mass/Vol] 115 mg/dL High 70-99 [facility] Comment on above: Performed By: #### L 500.4050, L501.2450, L100.0100 ####[facility] [address] [place], [address] Potassium [Moles/Vol] 3.9 mmol/L Normal 3.3-5.1 [facility] Comment on above: Performed By: #### L 500.4050, L501.2450, L100.0100 ####[facility] [address] [place], [address] Sodium [Moles/Vol] 138 mmol/L Normal 133-145 [facility] Comment on above: Performed By: #### L 500.4050, L501.2450, L100.0100 ####[facility] [address] [place], [address] T PROT 6.9 g/dL Normal 5.9-8.4 [facility] Comment on above: Performed By: #### L 500.4050, L501.2450, L100.0100 ####[facility] [address] [place], [address] Urea nitrogen [Mass/Vol] 9 mg/dL Normal 4-19 [facility] Comment on above: Performed By: #### L 500.4050, L501.2450, L100.0100 ####[facility] [address] [place], [address] Emergency Department Summary on 09-21-2025 Emergency Department Summary [facility] Medical Records Department [address] [place] [address] Emergency Department Summary 09/21/25 MR#: [id number] Acct: [id number] Name: PER FARMER Rep #: [id number] : 1995 30 From: Justin Goldman MD PCP: Dr. Sophie Avalos MD Status:REG ER Location: ED HPI HPI - GI History of Present Illness Chief Complaint: Abd Pain Informant: patient Narrative Narrative: Patient is a 30-year-old female presenting with severe abdominal pain, constipation, and nausea. - Reports severe abdominal pain across the abdomen, radiating to the back and right shoulder, persisting for over two weeks. - Associated symptoms include nausea, hot flashes, and fevers over the past few days. - Experiencing difficulty with bowel movements, with only 2 hard stools since her last visit; denies hematochezia. - Previously used Miralax but unable to continue due to insurance issues; tried GoLYTELY without significant relief. - Denies dysuria. 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 - Surgical history includes laparoscopy, endoscopy, and cholecystectomy. [facility] Medical History Anemia ADHD Dermoid cyst of right ovary Migraines Seizures Anxiety Depression HPV (human papilloma virus) infection IBS (irritable bowel syndrome) Home Medications ???Medication ???Instructions ???Recorded ???Last Taken ???Type ferrous sulfate 325 mg (65 mg 325 [...] 1 - 2 puff inhalation Q4H PRN NC N 01/09/23 Unknown Rx aerosol inhaler (Ventolin [...] mg PO BID 09/10/25 Unknown H istory dicyclomine 20 mg tablet 20 mg PO Q6H PRN PRN abdominal Unknown Rx discomfort #20 tabs Allergy/AdvReac Type Severity Reaction Status Date / Time amoxicillin Allergy Anaphylaxis Verified 09/21/25 04:44 bee venom protein (honey bee) Allergy Swelling Verified 09/21/25 04:44 etonogestrel (From Nexplanon) Allergy Swelling Verified 09/21/25 04:44 lidocaine Allergy Anaphylaxis Verified 09/21/25 04:44 mepivacaine (From Carbocaine) Allergy Swelling Verified 09/21/25 04:44 mushroom Allergy Other Verified 09/21/25 04:44 procaine (From Novocain) Allergy Swelling Verified 09/21/25 04:44 adhesive tape AdvReac Rash Verified 09/21/25 04:44 morphine AdvReac Other Verified 09/21/25 04:44 Surgical History Hx of cholecystectomy Hx of laparoscopy Social History household members: friend(s) Smoking Status: Current every day smoker tobacco type: cigarettes and e-cigarettes alcohol intake: current alcohol intake frequency: other substance use type: does not use ROS ROS ED Constitutional Constitutional ED: Denies chills or fever(s) Eyes Eyes: Denies change in vision or diplopia ENT ENT ED: Denies rhinorrhea or sore throat Cardiovascular Cardiovascular: Denies chest pain or palpitations Respiratory/Chest Respiratory/Chest: Denies cough or dyspnea Gastrointestinal Gastrointestinal: Reports abdominal pain, constipation and nausea; Denies diarrhea, hematemesis, hematochezia, melena or vomiting Genitourinary Genitourinary ED: Denies dysuria or hematuria Musculoskeletal Musculoskeletal: Denies back pain or neck pain Integumentary Denies abscess or rash Neurologic Neurologic: Denies headache(s), paresthesias or weakness Psych (more content not included)... Normal [facility] Eosinophil percentageOrdered By: Justin Goldman on 09-21-2025 Eosinophils/100 WBC (Bld) 5.5 % High 0-5 [facility] Erythrocyte distribution wid th ratioOrdered By: Justin Goldman on 09-21-2025 Erythrocyte distribution width (RBC) [Ratio] 13.1 % 11.6-14.6 [facility] Erythrocyte distribution wid th standard deviationOrdered By: Justin Goldman on 09-21-2025 Erythrocyte distribution width (RBC) [Ratio] 40.6 fl 35.1-43.9 [facility] Glomerular filtration rate ( GFR) estimation/1.73 sq m using serum, plasma, or whole bOrdered By: Justin Goldman on 09-21-2025 GFR/1.73 sq M.predicted among non-blacks MDRD (S/P/Bld) [Vol rate/Area] 119 mL/min/{1.73_m2} >60 [facility] Comment on above: mL/min/1.73m2 CKD-EP I Creatinine Equation (2020) Hematocrit Auto (Bld) [Volum e fraction]Ordered By: Justin Goldman on 09-21-2025 Hematocrit (Bld) [Volume fraction] 40.4 % 37-47 [facility] Hemoglobin measurementOrdere d By: Justin Goldman on 09-21-2025 Hemoglobin (Bld) [Mass/Vol] 13.6 g/dL 12.0-15.0 [facility] Immature granulocytes/100 WB C Auto (Bld)Ordered By: Justin Goldman on 09-21-2025 Immature granulocytes/100 WBC (Bld) 0.300 % 0.0-0.9 [facility] Comment on above: IG% - Immature Granu locytes (promyelocytes, myelocytes and metamyelocytes) > 1% indicates that a LEFT SHIFT is Present. Laboratory - Chemistry and C hemistry - challengeOrdered By: Justin Goldman on 09-21-2025 AST [Catalytic activity/Vol] 14 U/L <32 [facility] Lipaseon 09-21-2025 Lipase [Catalytic activity/Vol] 53 U/L Normal 13-75 [facility] Comment on above: Result Comment: Sahra hooks note: LIPASE revised reference range effective 23. New Lipase methodology. Expected to produce lower values than the previous assay method. NEW Reference Range: 13 - 75 U/L Performed By: #### L 500.4050, L501.2450, L100.0100 ####[facility] [address] [place], [address] Lipase measurementOrdered By : Justin Goldman on 09-21-2025 Lipase [Catalytic activity/Vol] 53 U/L 13-75 [facility] Comment on above: Please note:LIPASE r evised reference range effective 23. New Lipase methodology. Expected to produce lower values than the previous assay method. NEW Reference Range: 13 - 75 U/L MCV (mean corpuscular volume ) determinationOrdered By: Justin Goldman on 09-21-2025 MCV (RBC) [Entitic vol] 84.9 fL 81-99 [facility] Mean corpuscular hemoglobin (MCH) determinationOrdered By: Justin Goldman on 09-21-2025 MCH (RBC) [Entitic mass] 28.6 pg 27.0-32.0 [facility] Mean corpuscular hemoglobin concentration (MCHC) determinationOrdered By: Justin Goldman on 09-21-2025 MCHC (RBC) [Mass/Vol] 33.7 g/dL 32-36 [facility] Mean platelet volume determi nationOrdered By: Justin Goldman on 09-21-2025 Platelet mean volume (Bld) [Entitic vol] 9.5 fL 6.2-12.0 [facility] Monocyte percentageOrdered B y: Justin Goldman on 09-21-2025 Monocytes/100 WBC (Bld) 6.5 % 0-10 [facility] Neutrophil percentageOrdered By: Justin Goldman on 09-21-2025 Neutrophils/100 WBC (Bld) 49.0 % 47-70 [facility] Nucleated red blood cell per centageOrdered By: Justin Goldman on 09-21-2025 Nucleated RBC/100 WBC (Bld) [Ratio] 0 % 0-5 [facility] Platelet countOrdered By: Iron Goldman on 09-21-2025 Platelets (Bld) [#/Vol] 335 10*3/uL 150-450 [facility] Potassium measurement (mass/ volume)Ordered By: Justin Goldman on 09-21-2025 Potassium (Unsp spec) [Mass/Vol] 3.9 mmol/L 3.3-5.1 [facility] RBC Auto (Bld) [#/Vol]Ordere d By: Justin Goldman on 09-21-2025 RBC (Bld) [#/Vol] 4.76 10*6/uL 4.2-5.4 [facility] Serum creatinine measurement (mass/volume)Ordered By: Justin Goldman on 09-21-2025 Creatinine [Mass/Vol] 0.71 mg/dL 0.70-1.20 [facility] Serum globulin measurementOr dered By: Justin Goldman on 09-21-2025 Globulin (S) [Mass/Vol] 2.8 g/dL 2.2-4.2 [facility] Serum glucose measurement (m ass/volume)Ordered By: Justin Goldman on 09-21-2025 Glucose [Mass/Vol] 115 mg/dL High 70-99 [facility] Serum or plasma alanine orlando otransferase (ALT) measurementOrdered By: Justin Goldman on 09-21-2025 ALT [Catalytic activity/Vol] 10 U/L <35 [facility] Serum or plasma albumin genesis urement (mass/volume)Ordered By: Justin Goldman on 09-21-2025 Albumin [Mass/Vol] 4.2 g/dL 3.5-5.0 [facility] Serum or plasma albumin/glob ulin mass ratioOrdered By: Justin Goldman on 09-21-2025 Albumin/Globulin [Mass ratio] 1.5 {ratio} 0.9-2.4 [facility] Serum or plasma alkaline krysta sphatase measurementOrdered By: Justin Goldman on 09-21-2025 ALP [Catalytic activity/Vol] 53 U/L 35-104 [facility] Serum or plasma calcium genesis urement (mass/volume)Ordered By: Justin Goldman on 09-21-2025 Calcium [Mass/Vol] 9.0 mg/dL 7.6-11.0 [facility] Serum or plasma urea nitroge n measurement (mass/volume)Ordered By: Justin Goldman on 09-21-2025 Urea nitrogen [Mass/Vol] 9 mg/dL 4-19 [facility] Sodium levelOrdered By: Darian Goldman on 09-21-2025 Sodium [Moles/Vol] 138 mmol/L 133-145 [facility] Total proteinOrdered By: Stephanie Goldman on 09-21-2025 Protein [Mass/Vol] 6.9 g/dL 5.9-8.4 [facility] White blood cell (WBC) count Ordered By: Justin Goldman on 09-21-2025 WBC (Bld) [#/Vol] 10.5 10*3/uL 4.4-11.0 [facility] CNCOon 09-11-2025 CNCO Letter Text Normal [facility] CNOVon 09-11-2025 CNOV Office Visit (PODIWS ) PER FARMER ([id number]) 1995 F DEF Date Time Provider Department [...] with friend in boot and with crutches. Mckenna Vitale LPN 09/11/2025 10:31 PM Signed Per Per Rey was provided with speed pro ankle brace, size M, and instructed/educated in its application, wear, and care. All questions were answered, and patient was able to demonstrate competence with the necessary skills to utilize the above equipment. [facility]illed to [facility]. JAMES Chicas Matthew 09/11/2025 10:31 PM Signed Subjective The patient [...] the following day. She initially presented to [facility], where x-rays reportedly showed no acute [...] not fully healed. 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 Assessment AND [...] use after (more content not included)... Normal [facility] 09[facility]11-2025 [facility] PER FARMER ([id number]) 1995 F DEF Date Time Provider Department 09/11/25 FELIPA TORRES INTWS During your visit today, we recorded the following information about you: Mckenna Vitale LPN 09/11/2025 3:50 PM Signed Patient present to another apointment stating she need refill of One touch ultra test strips. She states order was placed for refill for test strips but it was wrong brand. JAMES Chicas Jacqueline A, [employer]ER.[facility] 09/11/2025 4:49 PM Signed Will try but [...] tablet (Discontinued) Reported on 09/11/2025 - lidocaine PCh-gi-xoxlolm-menth (WPR PLUS) 4-30-10 % kit (Discontinued) Reported on 09/11/2025 - spironolactone (ALDACTONE) 25 mg tablet (Discontinued) Reported on 09/11/2025 - tiZANidine HCl (ZANAFLEX) 4 mg capsule (Discontinued) Reported on 09/11/2025 Encounter Status:Closed by JACOB HUBER on 09/11/25 Normal [facility] Abdomen/Pelvis W IV Cont ONL Yon 09-10-2025 Abdomen/Pelvis W IV Cont ONLY [facility] Imaging Services [address] [place] [address] Abdomen/Pelvis W IV Cont ONLY MR#: [id number] Acct: [id number] Name: PER FARMER Rep #: [id number] : 1995 F 30 From: John mendoza MD PCP: Dr. Sophie Avalos MD Status: REG ER Study: Abdomen/Pelvis W IV Cont ONLY Date of Exam: Exam# [id number] Ordering Dr: Mukul Yusuf DO PROCEDURE: ABDOMEN/PELVIS [...] Fluid-filled small bowels, nonspecific finding. Reading Location: [place] [address] CC: Dr. Spohie Avalos MD; Mukul Yusuf DO Pruner: Signed Normal [facility] Absolute lymphocyte countOrd ered By: Mukul Yusuf on 09-10-2025 Lymphocytes Auto (Unsp spec) [#/Vol] 3.34 10*3/uL 0.83-4.51 [facility] Absolute neutrophil countOrd ered By: Mukul Yusuf on 09-10-2025 Neutrophils (Bld) [#/Vol] 5.9 10*3/uL 2.0-7.7 [facility] Anion gap in Serum or Plasma Ordered By: Mukul Yusuf on 09-10-2025 Anion gap [Moles/Vol] 11 mmol/L 5-15 [facility] Automated lymphocyte count a s percentage of total leukocytesOrdered By: Mukul Yusuf on 09-10-2025 Lymphocytes/100 WBC Auto (Unsp spec) 31.0 % 19-41 [facility] BUN/creatinine ratioOrdered By: Mukul Yusuf on 09-10-2025 Urea nitrogen/Creatinine [Mass ratio] 29.9 mg/mg High 09-17 [facility] Basic Metabolic Profile (BMP )on 09-10-2025 BUN/CRE 29.9 RATIO High 09-17 [facility] Comment on above: Performed By: #### L 100.0100, L500.3400, L501.2450, L500.2500 #### [facility] [address] [place], [address] Calcium [Mass/Vol] 9.3 mg/dL Normal 7.6-11.0 [facility] Comment on above: Performed By: #### L 100.0100, L500.3400, L501.2450, L500.2500 #### [facility] [address] [place], [address] Chloride [Moles/Vol] 104 mmol/L Normal 98-108 [facility] Comment on above: Performed By: #### L 100.0100, L500.3400, L501.2450, L500.2500 #### [facility] [address] [place], [address] CO2 [Moles/Vol] 21.2 mmol/L Normal 21.0-32.0 [facility] Comment on above: Performed By: #### L 100.0100, L500.3400, L501.2450, L500.2500 #### [facility] [address] [place], [address] Creatinine [Mass/Vol] 0.55 mg/dL Low 0.70-1.20 [facility] Comment on above: Performed By: #### L 100.0100, L500.3400, L501.2450, L500.2500 #### [facility] [address] [place], [address] ECRCL 165.88 ml/min Normal 50-250 [facility] Comment on above: Performed By: #### L 100.0100, L500.3400, L501.2450, L500.2500 #### [facility] [address] [place], [address] GAP 11 Normal 5-15 [facility] Comment on above: Performed By: #### L 100.0100, L500.3400, L501.2450, L500.2500 #### [facility] [address] [place], [address] GFR/1.73 sq M.predicted among non-blacks MDRD (S/P/Bld) [Vol rate/Area] 128 mL/min/{1.73_m2} Normal >60 [facility] Comment on above: Result Comment: mL/m in/1.73m2 CKD-EPI Creatinine Equation (2020) Performed By: #### L 100.0100, L500.3400, L501.2450, L500.2500 #### [facility] [address] [place], [address] Glucose [Mass/Vol] 84 mg/dL Normal 70-99 [facility] Comment on above: Performed By: #### L 100.0100, L500.3400, L501.2450, L500.2500 #### [facility] [address] [place], [address] Potassium [Moles/Vol] 4.2 mmol/L Normal 3.3-5.1 [facility] Comment on above: Performed By: #### L 100.0100, L500.3400, L501.2450, L500.2500 #### [facility] [address] [place], [address] Sodium [Moles/Vol] 135 mmol/L Normal 133-145 [facility] Comment on above: Performed By: #### L 100.0100, L500.3400, L501.2450, L500.2500 #### [facility] [address] [place], [address] Urea nitrogen [Mass/Vol] 16 mg/dL Normal 4-19 [facility] Comment on above: Performed By: #### L 100.0100, L500.3400, L501.2450, L500.2500 #### [facility] [address] [place], [address] Basophil percentageOrdered B y: Mukulheather Yusuf on 09-10-2025 Basophils/100 WBC (Bld) 0.8 % 0-1 [facility] Bilirubin directOrdered By: Mukulheather Yusuf on 09-10-2025 Bilirubin.direct [Mass/Vol] 0.09 mg/dL 0.00-0.30 [facility] Bilirubin, totalOrdered By: Mukul Yusuf on 09-10-2025 Bilirubin [Mass/Vol] 0.23 mg/dL 0.00-1.30 [facility] CBC W/Diff, Automatedon 08-29 Absolute Lymph 3.34 X10 3/uL Normal 0.83-4.51 [facility] Comment on above: Performed By: #### L 100.0100, L500.3400, L501.2450, L500.2500 #### [facility] [address] [place], [address] Absolute Neut 5.9 X10 3/uL Normal 2.0-7.7 [facility] Comment on above: Performed By: #### L 100.0100, L500.3400, L501.2450, L500.2500 #### [facility] [address] [place], [address] Basophils/100 WBC (Bld) 0.8 % Normal 0-1 [facility] Comment on above: Performed By: #### L 100.0100, L500.3400, L501.2450, L500.2500 #### [facility] [address] [place], [address] Eosinophils/100 WBC (Bld) 5.6 % High 0-5 [facility] Comment on above: Performed By: #### L 100.0100, L500.3400, L501.2450, L500.2500 #### [facility] [address] [place], [address] Erythrocyte distribution width (RBC) [Ratio] 13.2 % Normal 11.6-14.6 [facility] Comment on above: Performed By: #### L 100.0100, L500.3400, L501.2450, L500.2500 #### [facility] [address] [place], [address] Hematocrit (Bld) [Volume fraction] 38.0 % Normal 37-47 [facility] Comment on above: Performed By: #### L 100.0100, L500.3400, L501.2450, L500.2500 #### [facility] [address] [place], [address] Hemoglobin (Bld) [Mass/Vol] 12.8 g/dL Normal 12.0-15.0 [facility] Comment on above: Performed By: #### L 100.0100, L500.3400, L501.2450, L500.2500 #### [facility] [address] [place], [address] IG% 0.300 Normal 0.0-0.9 [facility] Comment on above: Result Comment: IG% - Immature Granulocytes (promyelocytes, myelocytes and metamyelocytes) > 1% indicates that a LEFT SHIFT is Present. Performed By: #### L 100.0100, L500.3400, L501.2450, L500.2500 #### [facility] [address] [place] [place], [address] Lymphocytes/100 WBC (Bld) 31.0 % Normal 19-41 [facility] Comment on above: Performed By: #### L 100.0100, L500.3400, L501.2450, L500.2500 #### [facility] [facility] [address] [place], [address] MCH (RBC) [Entitic mass] 28.5 pg Normal 27.0-32.0 [facility] Comment on above: Performed By: #### L 100.0100, L500.3400, L501.2450, L500.2500 #### [facility] [address] [place], [address] MCHC (RBC) [Mass/Vol] 33.7 g/dL Normal 32-36 [facility] Comment on above: Performed By: #### L 100.0100, L500.3400, L501.2450, L500.2500 #### [facility] [address] [place], [address] MCV (RBC) [Entitic vol] 84.6 fL Normal 81-99 [facility] Comment on above: Performed By: #### L 100.0100, L500.3400, L501.2450, L500.2500 #### [facility] [address] [place], [address] Monocytes/100 WBC (Bld) 7.4 % Normal 0-10 [facility] Comment on above: Performed By: #### L 100.0100, L500.3400, L501.2450, L500.2500 #### [facility] [address] [place], [address] Neutrophils/100 WBC (Bld) 54.9 % Normal 47-70 [facility] Comment on above: Performed By: #### L 100.0100, L500.3400, L501.2450, L500.2500 #### [facility] [address] [place], [address] Nucleated RBC (Bld) [#/Vol] 0 10*3/uL Normal 0-5 [facility] Comment on above: Performed By: #### L 100.0100, L500.3400, L501.2450, L500.2500 #### [facility] [address] [place], [address] Platelet mean volume (Bld) [Entitic vol] 9.3 fL Normal 6.2-12.0 [facility] Comment on above: Performed By: #### L 100.0100, L500.3400, L501.2450, L500.2500 #### [facility] [address] [place], [address] Platelets (Bld) [#/Vol] 324 10*3/uL Normal 150-450 [facility] Comment on above: Performed By: #### L 100.0100, L500.3400, L501.2450, L500.2500 #### [facility] [address] [place], [address] RBC (Bld) [#/Vol] 4.49 10*6/uL Normal 4.2-5.4 [facility] Comment on above: Performed By: #### L 100.0100, L500.3400, L501.2450, L500.2500 #### [facility] [address] [place], [address] RDW SD 41.1 fl Normal 35.1-43.9 [facility] Comment on above: Performed By: #### L 100.0100, L500.3400, L501.2450, L500.2500 #### [facility] [address] [place], [address] WBC (Bld) [#/Vol] 10.8 10*3/uL Normal 4.4-11.0 [facility] Comment on above: Performed By: #### L 100.0100, L500.3400, L501.2450, L500.2500 #### [facility] [address] [place], [address] Carbon dioxide, total [Moles /volume] in Central venous bloodOrdered By: Mukul Yusuf on 09-10-2025 CO2 [Moles/Vol] 21.2 mmol/L 21.0-32.0 [facility] Chloride assayOrdered By: Lay Yusuf on 09-10-2025 Chloride [Moles/Vol] 104 mmol/L 98-108 [facility] Emergency Department Summary on 09-10-2025 Emergency Department Summary [facility] Medical Records Department [address] [place] [address] Emergency Department Summary 09/10/25 MR#: [id number] Acct: [id number] Name: PER FARMER Rep #: [id number] : 1995 30 From: Mukul Yusuf DO [...] process and therefore comes in for evaluation. [facility] Medical History Anemia ADHD Dermoid cyst of [...] 1 - 2 puff inhalation Q4H PRN NC N 01/09/23 Unknown Rx aerosol inhaler (Ventolin [...] Hematologic/Lymphatic Hematologic/Lymp (more content not included)... Normal [facility] Eosinophil percentageOrdered By: Mukul Yusuf on 09-10-2025 Eosinophils/100 WBC (Bld) 5.6 % High 0-5 [facility] Erythrocyte distribution wid th ratioOrdered By: Mukul Yusuf on 09-10-2025 Erythrocyte distribution width (RBC) [Ratio] 13.2 % 11.6-14.6 [facility] Erythrocyte distribution wid th standard deviationOrdered By: Mukul Yusuf on 09-10-2025 Erythrocyte distribution width (RBC) [Ratio] 41.1 fl 35.1-43.9 [facility] Glomerular filtration rate ( GFR) estimation/1.73 sq m using serum, plasma, or whole bOrdered By: Mukul Yusuf on 09-10-2025 GFR/1.73 sq M.predicted among non-blacks MDRD (S/P/Bld) [Vol rate/Area] 128 mL/min/{1.73_m2} >60 [facility] Comment on above: mL/min/1.73m2 CKD-EP I Creatinine Equation (2020) Hematocrit Auto (Bld) [Volum e fraction]Ordered By: Mukul Yusuf on 09-10-2025 Hematocrit (Bld) [Volume fraction] 38.0 % 37-47 [facility] Hemoglobin measurementOrdere d By: Mukul Yusuf on 09-10-2025 Hemoglobin (Bld) [Mass/Vol] 12.8 g/dL 12.0-15.0 [facility] Immature granulocytes/100 WB C Auto (Bld)Ordered By: Mukul Yusuf on 09-10-2025 Immature granulocytes/100 WBC (Bld) 0.300 % 0.0-0.9 [facility] Comment on above: IG% - Immature Granu locytes (promyelocytes, myelocytes and metamyelocytes) > 1% indicates that a LEFT SHIFT is Present. Laboratory - Chemistry and C hemistry - challengeOrdered By: Mukul Yusuf on 09-10-2025 AST [Catalytic activity/Vol] 12 U/L <32 [facility] Lipaseon 09-10-2025 Lipase [Catalytic activity/Vol] 43 U/L Normal 13-75 [facility] Comment on above: Result Comment: Sahra hooks note: LIPASE revised reference range effective 23. New Lipase methodology. Expected to produce lower values than the previous assay method. NEW Reference Range: 13 - 75 U/L Performed By: #### L 100.0100, L500.3400, L501.2450, L500.2500 ####[facility] [address] [place], [place], [address] Lipase measurementOrdered By : Mukul Yusuf on 09-10-2025 Lipase [Catalytic activity/Vol] 43 U/L 13-75 [facility] Comment on above: Please note:LIPASE r evised reference range effective 23. New Lipase methodology. Expected to produce lower values than the previous assay method. NEW Reference Range: 13 - 75 U/L Liver Profileon 09-10-2025 Albumin [Mass/Vol] 4.0 g/dL Normal 3.5-5.0 [facility] Comment on above: Performed By: #### L 100.0100, L500.3400, L501.2450, L500.2500 #### [facility] [address] [place], [address] ALK PHOS 45 U/L Normal 35-104 [facility] Comment on above: Performed By: #### L 100.0100, L500.3400, L501.2450, L500.2500 #### [facility] [address] [place], [address] ALT [Catalytic activity/Vol] 6 U/L Normal <=34 [facility] Comment on above: Performed By: #### L 100.0100, L500.3400, L501.2450, L500.2500 #### [facility] [address] [place], [address] AST [Catalytic activity/Vol] 12 U/L Normal <=31 [facility] Comment on above: Performed By: #### L 100.0100, L500.3400, L501.2450, L500.2500 #### [facility] [address] [place], [address] Bilirubin [Mass/Vol] 0.23 mg/dL Normal 0.00-1.30 [facility] Comment on above: Performed By: #### L 100.0100, L500.3400, L501.2450, L500.2500 #### [facility] [address] [place], [address] Bilirubin.direct [Mass/Vol] 0.09 mg/dL Normal 0.00-0.30 [facility] Comment on above: Performed By: #### L 100.0100, L500.3400, L501.2450, L500.2500 #### [facility] [address] [place], [address] Globulin (S) [Mass/Vol] 2.5 g/dL Normal 2.2-4.2 [facility] Comment on above: Performed By: #### L 100.0100, L500.3400, L501.2450, L500.2500 #### [facility] [address] [place], [address] T PROT 6.5 g/dL Normal 5.9-8.4 [facility] Comment on above: Performed By: #### L 100.0100, L500.3400, L501.2450, L500.2500 #### [facility] [address] [place], [place], [address] MCV (mean corpuscular volume ) determinationOrdered By: Mukul Yusuf on 09-10-2025 MCV (RBC) [Entitic vol] 84.6 fL 81-99 [facility] Mean corpuscular hemoglobin (MCH) determinationOrdered By: Mukul Yusuf on 09-10-2025 MCH (RBC) [Entitic mass] 28.5 pg 27.0-32.0 [facility] Mean corpuscular hemoglobin concentration (MCHC) determinationOrdered By: Mukul Yusuf on 09-10-2025 MCHC (RBC) [Mass/Vol] 33.7 g/dL 32-36 [facility] Mean platelet volume determi nationOrdered By: Mukul Yusuf on 09-10-2025 Platelet mean volume (Bld) [Entitic vol] 9.3 fL 6.2-12.0 [facility] Monocyte percentageOrdered B y: Mukul Yusuf on 09-10-2025 Monocytes/100 WBC (Bld) 7.4 % 0-10 [facility] Neutrophil percentageOrdered By: Mukul Yusuf on 09-10-2025 Neutrophils/100 WBC (Bld) 54.9 % 47-70 [facility] Nucleated red blood cell per centageOrdered By: Mukul Yusuf on 09-10-2025 Nucleated RBC/100 WBC (Bld) [Ratio] 0 % 0-5 [facility] Platelet countOrdered By: Lay Yusuf on 09-10-2025 Platelets (Bld) [#/Vol] 324 10*3/uL 150-450 [facility] Potassium measurement (mass/ volume)Ordered By: Mukul Yusuf on 09-10-2025 Potassium (Unsp spec) [Mass/Vol] 4.2 mmol/L 3.3-5.1 [facility] ,Serum,hCG Quali.on 09-10-2025 HCG, SERUM QUAL Negative Normal [facility] Comment on above: Performed By: #### L 700.6800 #### [facility] [address] [place], [place], [address] RBC Auto (Bld) [#/Vol]Ordere d By: Mukul Yusuf on 09-10-2025 RBC (Bld) [#/Vol] 4.49 10*6/uL 4.2-5.4 [facility] Serum beta-hCG test, qualita tiveOrdered By: Mukul Yusuf on 09-10-2025 Beta HCG ( test) Ql Negative [facility] Serum creatinine measurement (mass/volume)Ordered By: Mukul Yusuf on 09-10-2025 Creatinine [Mass/Vol] 0.55 mg/dL Low 0.70-1.20 [facility] Serum globulin measurementOr dered By: Mukul Yusuf on 09-10-2025 Globulin (S) [Mass/Vol] 2.5 g/dL 2.2-4.2 [facility] Serum glucose measurement (m ass/volume)Ordered By: Mukul Yusuf on 09-10-2025 Glucose [Mass/Vol] 84 mg/dL 70-99 [facility] Serum or plasma alanine or[place] otransferase (ALT) measurementOrdered By: Mukul Yusuf on 09-10-2025 ALT [Catalytic activity/Vol] 6 U/L <35 [facility] Serum or plasma albumin genesis urement (mass/volume)Ordered By: Mukul Yusuf on 09-10-2025 Albumin [Mass/Vol] 4.0 g/dL 3.5-5.0 [facility] Serum or plasma alkaline krysta sphatase measurementOrdered By: Mukul Yusuf on 09-10-2025 ALP [Catalytic activity/Vol] 45 U/L 35-104 [facility] Serum or plasma calcium genesis urement (mass/volume)Ordered By: Mukul Yusuf on 09-10-2025 Calcium [Mass/Vol] 9.3 mg/dL 7.6-11.0 [facility] Serum or plasma urea nitroge n measurement (mass/volume)Ordered By: Mukul Yusuf on 09-10-2025 Urea nitrogen [Mass/Vol] 16 mg/dL 4-19 [facility] Shoulder min 2 Viewson 09-10 Shoulder min 2 Views [facility] Imaging Services [address] [place], [place] [address] Shoulder min 2 Views MR#: [id number] Acct: [id number] Name: PER FARMER Rep #: [id number] : 1995 F 30 From: John mendoza MD PCP: Dr. Sophie Avalos MD Status: REG ER Study: Shoulder min 2 Views Date of Exam: 09/10/25 Exam# [id number] Ordering Dr: Mukul Yusuf DO PROCEDURE: SHOULDER [...] No evidence for acute abnormality. Reading Location: [place] [address] CC: Dr. Sophie Avalos MD; Mukul Yusuf DO Pruner: Signed Normal [facility] Sodium levelOrdered By: Steve Yusuf on 09-10-2025 Sodium [Moles/Vol] 135 mmol/L 133-145 [facility] Total proteinOrdered By: Chris Yusuf on 09-10-2025 Protein [Mass/Vol] 6.5 g/dL 5.9-8.4 [facility] Urinalysis, Completeon 09-10 BACTERIA Normal None Seen [facility] Comment on above: Order Comment: COLLE CTOR TO SPECIFY Result Comment: JOHNNY ENT DEPARTED ER. CANCELLED PER JYOTSNA BISHOP (ER) Performed By: #### L 400.0001 #### [facility] [address] [place], [address] BILIRUBIN URINE Normal Negative [facility] Comment on above: Order Comment: VAISHNAVI CTOR TO SPECIFY Result Comment: JOHNNY ENT DEPARTED ER. CANCELLED PER JYOTSNA RN (ER) Performed By: #### L 400.0001 #### [facility] [address] [place], [address] Clarity (U) Normal Clear [facility] Comment on above: Order Comment: VAISHNAVI CTOR TO SPECIFY Result Comment: JOHNNY ENT DEPARTED ER. CANCELLED PER JYOTSNA RN (ER) Performed By: #### L 400.0001 #### [facility] [address] [place], [address] Color (U) Normal Yellow [facility] Comment on above: Order Comment: VAISHNAVI CTOR TO SPECIFY Result Comment: JOHNNY ENT DEPARTED ER. CANCELLED PER JYOTSNA RN (ER) Performed By: #### L 400.0001 #### [facility] [address] [place], [address] EPI,SQUAMOUS Normal 5-10 [facility] Comment on above: Order Comment: VAISHNAVI CTOR TO SPECIFY Result Comment: JOHNNY ENT DEPARTED ER. CANCELLED PER JYOTSNA RN (ER) Performed By: #### L 400.0001 #### [facility] [address] [place], [address] GLUCOSE, UR Normal Normal [facility] Comment on above: Order Comment: VAISHNAVI CTOR TO SPECIFY Result Comment: JOHNNY ENT DEPARTED ER. CANCELLED PER JYOTSNA RN (ER) Performed By: #### L 400.0001 #### [facility] [address] [place], [address] KETONE UR Normal Negative [facility] Comment on above: Order Comment: VAISHNAVI CTOR TO SPECIFY Result Comment: JOHNNY ENT DEPARTED ER. CANCELLED PER JYOTSNA RN (ER) Performed By: #### L 400.0001 #### [facility] [address] [place], [address] LEUK ESTERASE Normal Negative [facility] Comment on above: Order Comment: VAISHNAVI CTOR TO SPECIFY Result Comment: JOHNNY ENT DEPARTED ER. CANCELLED PER JYOTSNA RN (ER) Performed By: #### L 400.0001 #### [facility] [address] [place], [address] Mucus Ql (Urine sed) Normal [facility] Comment on above: Order Comment: VAISHNAVI CTOR TO SPECIFY Result Comment: JOHNNY ENT DEPARTED ER. CANCELLED PER JYOTSNA RN (ER) Performed By: #### L 400.0001 #### [facility] [address] [place], [address] Nitrite Ql (U) Normal Negative [facility] Comment on above: Order Comment: VAISHNAVI CTOR TO SPECIFY Result Comment: JOHNNY ENT DEPARTED ER. CANCELLED PER JYOTSNA RN (ER) Performed By: #### L 400.0001 #### [facility] [address] [place], [address] OCCULT BLOOD-UR Normal Negative [facility] Comment on above: Order Comment: VAISHNAVI CTOR TO SPECIFY Result Comment: JOHNNY ENT DEPARTED ER. CANCELLED PER JYOTSNA RN (ER) Performed By: #### L 400.0001 #### [facility] [address] [place], [address] pH UR Normal 5.0 - 8.0 [facility] Comment on above: Order Comment: VAISHNAVI CTOR TO SPECIFY Result Comment: JOHNNY ENT DEPARTED ER. CANCELLED PER JYOTSNA RN (ER) Performed By: #### L 400.0001 #### [facility] [address] [place], [address] PROT DIPSTX Normal Negative [facility] Comment on above: Order Comment: VAISHNAVI CTOR TO SPECIFY Result Comment: JOHNNY ENT DEPARTED ER. CANCELLED PER JYOTSNA RN (ER) Performed By: #### L 400.0001 #### [facility] [address] [place], [address] RBC Normal 0-5 [facility] Comment on above: Order Comment: VAISHNAVI CTOR TO SPECIFY Result Comment: JOHNNY ENT DEPARTED ER. CANCELLED PER JYOTSNA RN (ER) Performed By: #### L 400.0001 #### [facility] [address] [place], [address] SP.GR. DIPSTX Normal 1.002-1.03 0 [facility] Comment on above: Order Comment: VAISHNAVI CTOR TO SPECIFY Result Comment: JOHNNY ENT DEPARTED ER. CANCELLED PER JYOTSNA RN (ER) Performed By: #### L 400.0001 #### [facility] [address] [place], [address] UR Preservative Normal [facility] Comment on above: Order Comment: VAISHNAVI CTOR TO SPECIFY Result Comment: JOHNNY ENT DEPARTED ER. CANCELLED PER JYOTSNA RN (ER) Performed By: #### L 400.0001 #### [facility] [address] [place], [address] UROBILI Normal Normal [facility] Comment on above: Order Comment: VAISHNAVI CTOR TO SPECIFY Result Comment: JOHNNY ENT DEPARTED ER. CANCELLED PER JYOTSNA RN (ER) Performed By: #### L 400.0001 #### [facility] [address] [place], [address] WBC Normal 0-5 [facility] Comment on above: Order Comment: VAISHNAVI CTOR TO SPECIFY Result Comment: JOHNNY ENT DEPARTED ER. CANCELLED PER JYOTSNA RN (ER) Performed By: #### L 400.0001 #### [facility] [address] [place], [address] White blood cell (WBC) count Ordered By: Mukul Yusuf on 09-10-2025 WBC (Bld) [#/Vol] 10.8 10*3/uL 4.4-11.0 [facility] Abdomen/Pelvis W IV Cont ONL Yon 09-04-2025 Abdomen/Pelvis W IV Cont ONLY [facility] Imaging Services [address] [place], [place] [address] Abdomen/Pelvis W IV Cont ONLY MR#: [id number] Acct: [id number] Name: PER FARMER Rep #: [id number] : 1995 F 30 From: Toni Lou MD PCP: Dr. Sophie Avalos MD Status: [facility] ER Study: Abdomen/Pelvis W IV Cont ONLY Date of Exam: Exam# [id number] Ordering Dr: Jose Blair MD PROCEDURE: ABDOMEN/PELVIS [...] of stool within the colon. Reading Location: [facility] CC: Dr. Jose Blair MD; Dr. Sophie Avalos MD Pruner: Signed Normal [facility] Absolute lymphocyte countOrd ered By: Jose Blair on 09-04-2025 Lymphocytes Auto (Unsp spec) [#/Vol] 2.84 10*3/uL 0.83-4.51 [facility] Absolute neutrophil countOrd ered By: Jose Blair on 09-04-2025 Neutrophils (Bld) [#/Vol] 4.5 10*3/uL 2.0-7.7 [facility] Anion gap in Serum or Plasma Ordered By: Jose Blair on 09-04-2025 Anion gap [Moles/Vol] 12 mmol/L - [facility] Automated lymphocyte count a s percentage of total leukocytesOrdered By: Jose Blair on 09-04-2025 Lymphocytes/100 WBC Auto (Unsp spec) 33.1 % [facility] BUN/creatinine ratioOrdered By: Jose Blair on 09-04-2025 Urea nitrogen/Creatinine [Mass ratio] 13.7 mg/mg 09-17 [facility] Basophil percentageOrdered B y: Jose Blair on 09-04-2025 Basophils/100 WBC (Bld) 0.9 % 0-1 [facility] Bilirubin Test strip Ql (U)O rdered By: Jose Blair on 09-04-2025 Bilirubin Ql (U) Negative Negative [facility] Bilirubin, totalOrdered By: Jose Blair on 09-04-2025 Bilirubin [Mass/Vol] 0.30 mg/dL 0.00-1.30 [facility] CBC W/Diff, Automatedon Absolute Lymph 2.84 X10 3/uL Normal 0.83-4.51 [facility] Comment on above: Performed By: #### L 100.0100, L500.4050, L700.6800, L501.2450 ####[facility] [address] [place], [address] Absolute Neut 4.5 X10 3/uL Normal 2.0-7.7 [facility] Comment on above: Performed By: #### L 100.0100, L500.4050, L700.6800, L501.2450 ####[facility] [address] [place], [address] Basophils/100 WBC (Bld) 0.9 % Normal 0-1 [facility] Comment on above: Performed By: #### L 100.0100, L500.4050, L700.6800, L501.2450 ####[facility] [address] [place], [address] Eosinophils/100 WBC (Bld) 7.1 % High 0-5 [facility] Comment on above: Performed By: #### L 100.0100, L500.4050, L700.6800, L501.2450 ####[facility] [address] [place], [address] Erythrocyte distribution width (RBC) [Ratio] 13.5 % Normal 11.6-14.6 [facility] Comment on above: Performed By: #### L 100.0100, L500.4050, L700.6800, L501.2450 ####[facility] [address] [place], [address] Hematocrit (Bld) [Volume fraction] 37.5 % Normal 37-47 [facility] Comment on above: Performed By: #### L 100.0100, L500.4050, L700.6800, L501.2450 ####[facility] [address] [place], [address] Hemoglobin (Bld) [Mass/Vol] 13.1 g/dL Normal 12.0-15.0 [facility] Comment on above: Performed By: #### L 100.0100, L500.4050, L700.6800, L501.2450 ####[facility] [address] [place], [address] IG% 0.200 Normal 0.0-0.9 [facility] Comment on above: Result Comment: IG% - Immature Granulocytes (promyelocytes, myelocytes and metamyelocytes) > 1% indicates that a LEFT SHIFT is Present. Performed By: #### L 100.0100, L500.4050, L700.6800, L501.2450 ####[facility] [address] [place], [address] Lymphocytes/100 WBC (Bld) 33.1 % Normal 19-41 [facility] Comment on above: Performed By: #### L 100.0100, L500.4050, L700.6800, L501.2450 ####[facility] [address] [place], [address] MCH (RBC) [Entitic mass] 29.8 pg Normal 27.0-32.0 [facility] Comment on above: Performed By: #### L 100.0100, L500.4050, L700.6800, L501.2450 ####[facility] [address] [place], [address] MCHC (RBC) [Mass/Vol] 34.9 g/dL Normal 32-36 [facility] Comment on above: Performed By: #### L 100.0100, L500.4050, L700.6800, L501.2450 ####[facility] [address] [place], [address] MCV (RBC) [Entitic vol] 85.4 fL Normal 81-99 [facility] Comment on above: Performed By: #### L 100.0100, L500.4050, L700.6800, L501.2450 ####[facility] [address] [place], [address] Monocytes/100 WBC (Bld) 5.9 % Normal 0-10 [facility] Comment on above: Performed By: #### L 100.0100, L500.4050, L700.6800, L501.2450 ####[facility] [address] [place], [address] Neutrophils/100 WBC (Bld) 52.8 % Normal 47-70 [facility] Comment on above: Performed By: #### L 100.0100, L500.4050, L700.6800, L501.2450 ####[facility] [address] [place], [address] Nucleated RBC (Bld) [#/Vol] 0 10*3/uL Normal 0-5 [facility] Comment on above: Performed By: #### L 100.0100, L500.4050, L700.6800, L501.2450 ####[facility] [address] [place], [address] Platelet mean volume (Bld) [Entitic vol] 9.6 fL Normal 6.2-12.0 [facility] Comment on above: Performed By: #### L 100.0100, L500.4050, L700.6800, L501.2450 ####[facility] [address] [place], [address] Platelets (Bld) [#/Vol] 295 10*3/uL Normal 150-450 [facility] Comment on above: Performed By: #### L 100.0100, L500.4050, L700.6800, L501.2450 ####[facility] [address] [place], [address] RBC (Bld) [#/Vol] 4.39 10*6/uL Normal 4.2-5.4 [facility] Comment on above: Performed By: #### L 100.0100, L500.4050, L700.6800, L501.2450 ####[facility] [address] [place], [address] RDW SD 42.5 fl Normal 35.1-43.9 [facility] Comment on above: Performed By: #### L 100.0100, L500.4050, L700.6800, L501.2450 ####[facility] [address] [place], [address] WBC (Bld) [#/Vol] 8.6 10*3/uL Normal 4.4-11.0 [facility] Comment on above: Performed By: #### L 100.0100, L500.4050, L700.6800, L501.2450 ####[facility] [address] [place], [address] Carbon dioxide, total [Moles /volume] in Central venous bloodOrdered By: Jose Blair on 09-04-2025 CO2 [Moles/Vol] 21.0 mmol/L 21.0-32.0 [facility] Chloride assayOrdered By: Scott Blair on 09-04-2025 Chloride [Moles/Vol] 106 mmol/L 98-108 [facility] Comprehensive Metabolic Prof ilon 09-04-2025 Albumin [Mass/Vol] 4.1 g/dL Normal 3.5-5.0 [facility] Comment on above: Performed By: #### L 100.0100, L500.4050, L700.6800, L501.2450 ####[facility] [address] [place], [address] Albumin/Globulin [Mass ratio] 1.4 {ratio} Normal 0.9-2.4 [facility] Comment on above: Performed By: #### L 100.0100, L500.4050, L700.6800, L501.2450 ####[facility] [address] [place], [address] ALK PHOS 47 U/L Normal 35-104 [facility] Comment on above: Performed By: #### L 100.0100, L500.4050, L700.6800, L501.2450 ####[facility] [address] [place], [address] ALT [Catalytic activity/Vol] 11 U/L Normal <=34 [facility] Comment on above: Performed By: #### L 100.0100, L500.4050, L700.6800, L501.2450 ####[facility] [address] [place], [address] AST [Catalytic activity/Vol] 15 U/L Normal <=31 [facility] Comment on above: Performed By: #### L 100.0100, L500.4050, L700.6800, L501.2450 ####[facility] [address] [place], [address] Bilirubin [Mass/Vol] 0.30 mg/dL Normal 0.00-1.30 [facility] Comment on above: Performed By: #### L 100.0100, L500.4050, L700.6800, L501.2450 ####[facility] [address] [place], [address] BUN/CRE 13.7 RATIO Normal 10-20 [facility] Comment on above: Performed By: #### L 100.0100, L500.4050, L700.6800, L501.2450 ####[facility] [address] [place], [address] Calcium [Mass/Vol] 9.3 mg/dL Normal 7.6-11.0 [facility] Comment on above: Performed By: #### L 100.0100, L500.4050, L700.6800, L501.2450 ####[facility] [address] [place], [address] Chloride [Moles/Vol] 106 mmol/L Normal 98-108 [facility] Comment on above: Performed By: #### L 100.0100, L500.4050, L700.6800, L501.2450 ####[facility] [address] [place], [address] CO2 [Moles/Vol] 21.0 mmol/L Normal 21.0-32.0 [facility] Comment on above: Performed By: #### L 100.0100, L500.4050, L700.6800, L501.2450 ####[facility] [address] [place], [address] Creatinine [Mass/Vol] 0.68 mg/dL Low 0.70-1.20 [facility] Comment on above: Performed By: #### L 100.0100, L500.4050, L700.6800, L501.2450 ####[facility] [address] [place], [address] ECRCL 143.34 ml/min Normal 50-250 [facility] Comment on above: Performed By: #### L 100.0100, L500.4050, L700.6800, L501.2450 ####[facility] [address] [place], [address] GAP 12 Normal 5-15 [facility] Comment on above: Performed By: #### L 100.0100, L500.4050, L700.6800, L501.2450 ####[facility] [address] [place], [address] GFR/1.73 sq M.predicted among non-blacks MDRD (S/P/Bld) [Vol rate/Area] 122 mL/min/{1.73_m2} Normal >60 [facility] Comment on above: Result Comment: mL/m in/1.73m2 CKD-EPI Creatinine Equation (2020) Performed By: #### L 100.0100, L500.4050, L700.6800, L501.2450 ####[facility] [address] [place], [address] Globulin (S) [Mass/Vol] 2.9 g/dL Normal 2.2-4.2 [facility] Comment on above: Performed By: #### L 100.0100, L500.4050, L700.6800, L501.2450 ####[facility] [address] [place], [address] Glucose [Mass/Vol] 85 mg/dL Normal 70-99 [facility] Comment on above: Performed By: #### L 100.0100, L500.4050, L700.6800, L501.2450 ####[facility] [address] [place], [address] Potassium [Moles/Vol] 3.9 mmol/L Normal 3.3-5.1 [facility] Comment on above: Performed By: #### L 100.0100, L500.4050, L700.6800, L501.2450 ####[facility] [address] [place], [address] Sodium [Moles/Vol] 139 mmol/L Normal 133-145 [facility] Comment on above: Performed By: #### L 100.0100, L500.4050, L700.6800, L501.2450 ####[facility] [address] [place], [address] T PROT 7.0 g/dL Normal 5.9-8.4 [facility] Comment on above: Performed By: #### L 100.0100, L500.4050, L700.6800, L501.2450 ####[facility] [address] [place], [address] Urea nitrogen [Mass/Vol] 9 mg/dL Normal 4-19 [facility] Comment on above: Performed By: #### L 100.0100, L500.4050, L700.6800, L501.2450 ####[facility] [address] [place], [address] Emergency Department Summary on 09-04-2025 Emergency Department Summary [facility] Medical Records Department [address] [place] [address] Emergency Department Summary 09/04/25 MR#: [id number] Acct: [id number] Name: PER FARMER Rep #: [id number] : 1995 30 From: Jose Blair MD [...] similar symptoms: No Recent Illness/Hospitalization: No PFSH PFS Medical History Anemia ADHD Dermoid cyst of [...] 1 - 2 puff inhalation Q4H PRN NC N 01/09/23 Unknown Rx aerosol inhaler (Ventolin [...] easy bleedi (more content not included)... Normal [facility] Eosinophil percentageOrdered By: Jose Blair on 09-04-2025 Eosinophils/100 WBC (Bld) 7.1 % High 0-5 [facility] Erythrocyte distribution wid th ratioOrdered By: Jose Blair on 09-04-2025 Erythrocyte distribution width (RBC) [Ratio] 13.5 % 11.6-14.6 [facility] Erythrocyte distribution wid th standard deviationOrdered By: Jose Blair on 09-04-2025 Erythrocyte distribution width (RBC) [Ratio] 42.5 fl 35.1-43.9 [facility] Glomerular filtration rate ( GFR) estimation/1.73 sq m using serum, plasma, or whole bOrdered By: Jose Blair on 09-04-2025 GFR/1.73 sq M.predicted among non-blacks MDRD (S/P/Bld) [Vol rate/Area] 122 mL/min/{1.73_m2} >60 [facility] Comment on above: mL/min/1.73m2 CKD-EP I Creatinine Equation (2020) Hematocrit Auto (Bld) [Volum e fraction]Ordered By: Jose Blair on 09-04-2025 Hematocrit (Bld) [Volume fraction] 37.5 % 37-47 [facility] Hemoglobin measurementOrdere d By: Jose Blair on 09-04-2025 Hemoglobin (Bld) [Mass/Vol] 13.1 g/dL 12.0-15.0 [facility] Immature granulocytes/100 WB C Auto (Bld)Ordered By: Jose Blair on 09-04-2025 Immature granulocytes/100 WBC (Bld) 0.200 % 0.0-0.9 [facility] Comment on above: IG% - Immature Granu locytes (promyelocytes, myelocytes and metamyelocytes) > 1% indicates that a LEFT SHIFT is Present. Ketones Test strip Ql (U)Ord ered By: Jose Blair on 09-04-2025 Ketones Ql (U) Negative Negative [facility] Laboratory - Chemistry and C hemistry - challengeOrdered By: Jose Blair on 09-04-2025 AST [Catalytic activity/Vol] 15 U/L <32 [facility] Lipaseon 09-04-2025 Lipase [Catalytic activity/Vol] 31 U/L Normal 13-75 [facility] Comment on above: Result Comment: Sahra hooks note: LIPASE revised reference range effective 23. New Lipase methodology. Expected to produce lower values than the previous assay method. NEW Reference Range: 13 - 75 U/L Performed By: #### L 100.0100, L500.4050, L700.6800, L501.2450 ####[facility] [address] [place], [address] Lipase measurementOrdered By : Jose Blair on 09-04-2025 Lipase [Catalytic activity/Vol] 31 U/L 13-75 [facility] Comment on above: Please note:LIPASE r evised reference range effective 23. New Lipase methodology. Expected to produce lower values than the previous assay method. NEW Reference Range: 13 - 75 U/L MCV (mean corpuscular volume ) determinationOrdered By: Jose Blair on 09-04-2025 MCV (RBC) [Entitic vol] 85.4 fL 81-99 [facility] Mean corpuscular hemoglobin (MCH) determinationOrdered By: Jose Blair on 09-04-2025 MCH (RBC) [Entitic mass] 29.8 pg 27.0-32.0 [facility] Mean corpuscular hemoglobin concentration (MCHC) determinationOrdered By: Jose Blair on 09-04-2025 MCHC (RBC) [Mass/Vol] 34.9 g/dL 32-36 [facility] Mean platelet volume determi nationOrdered By: Jose Blair on 09-04-2025 Platelet mean volume (Bld) [Entitic vol] 9.6 fL 6.2-12.0 [facility] Microscopic analysis of urin e for red blood cells (RBC)Ordered By: Jose Blair on 09-04-2025 Microscopic analysis of urine for red blood cells (RBC) 0-5 SEEN /hpf 0-5 [facility] Monocyte percentageOrdered B y: Joes Blair on 09-04-2025 Monocytes/100 WBC (Bld) 5.9 % 0-10 [facility] Mucus LM Ql (Urine sed)Order ed By: Jose Blair on 09-04-2025 Mucus Ql (Urine sed) 0 SEEN /hpf [facility] Neutrophil percentageOrdered By: Jose Blair on 09-04-2025 Neutrophils/100 WBC (Bld) 52.8 % 47-70 [facility] Nitrite Test strip Ql (U)Ord ered By: Jose Blair on 09-04-2025 Nitrite Ql (U) Negative Negative [facility] Nucleated red blood cell per centageOrdered By: Jose Blair on 09-04-2025 Nucleated RBC/100 WBC (Bld) [Ratio] 0 % 0-5 [facility] Platelet countOrdered By: Scott Blair on 09-04-2025 Platelets (Bld) [#/Vol] 295 10*3/uL 150-450 [facility] Potassium measurement (mass/ volume)Ordered By: Jose Blair on 09-04-2025 Potassium (Unsp spec) [Mass/Vol] 3.9 mmol/L 3.3-5.1 [facility] ,Serum,hCG Quali.on 09-04-2025 HCG, SERUM QUAL Negative Normal [facility] Comment on above: Performed By: #### L 100.0100, L500.4050, L700.6800, L501.2450 ####[facility] [address] [place], [address] Protein Test strip Ql (U)Ord ered By: Jose Blair on 09-04-2025 Protein Ql (U) 30 mg/dl High Negative [facility] RBC Auto (Bld) [#/Vol]Ordere d By: Jose Blair on 09-04-2025 RBC (Bld) [#/Vol] 4.39 10*6/uL 4.2-5.4 [facility] Serum beta-hCG test, qualita tiveOrdered By: Jose Blair on 09-04-2025 Beta HCG ( test) Ql Negative [facility] Serum creatinine measurement (mass/volume)Ordered By: Jose Blair on 09-04-2025 Creatinine [Mass/Vol] 0.68 mg/dL Low 0.70-1.20 [facility] Serum globulin measurementOr dered By: Jose Blair on 09-04-2025 Globulin (S) [Mass/Vol] 2.9 g/dL 2.2-4.2 [facility] Serum glucose measurement (m ass/volume)Ordered By: Jose Blair on 09-04-2025 Glucose [Mass/Vol] 85 mg/dL 70-99 [facility] Serum or plasma alanine orlando otransferase (ALT) measurementOrdered By: Jose Blair on 09-04-2025 ALT [Catalytic activity/Vol] 11 U/L <35 [facility] Serum or plasma albumin genesis urement (mass/volume)Ordered By: Jose Blair on 09-04-2025 Albumin [Mass/Vol] 4.1 g/dL 3.5-5.0 [facility] Serum or plasma albumin/glob ulin mass ratioOrdered By: Jose Blair on 09-04-2025 Albumin/Globulin [Mass ratio] 1.4 {ratio} 0.9-2.4 [facility] Serum or plasma alkaline krysta sphatase measurementOrdered By: Jose Blair on 09-04-2025 ALP [Catalytic activity/Vol] 47 U/L 35-104 [facility] Serum or plasma calcium genesis urement (mass/volume)Ordered By: Jose Blair on 09-04-2025 Calcium [Mass/Vol] 9.3 mg/dL 7.6-11.0 [facility] Serum or plasma urea nitroge n measurement (mass/volume)Ordered By: Jose Blair on 09-04-2025 Urea nitrogen [Mass/Vol] 9 mg/dL 4-19 [facility] Sodium levelOrdered By: Jose Blair on 09-04-2025 Sodium [Moles/Vol] 139 mmol/L 133-145 [facility] Squamous epithelial cells de tection in urine sediment by light microscopyOrdered By: Jose Blair on 09-04-2025 Epithelial cells.squamous LM Ql (Urine sed) 10-25 SEEN /hpf 5-10 [facility] Total proteinOrdered By: Rusty Blair on 09-04-2025 Protein [Mass/Vol] 7.0 g/dL 5.9-8.4 [facility] Urinalysis,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 Speci men Type: BLOOD SPECIMENOrdering Facility: [facility] Address: [address] [place] [address] Performed By: #### 5 7021-8 ####[facility]CL[facility] [id number] [place] [id number] [place] Hemoglobin (Bld) [Mass/Vol] 12.0 g/dL Normal 11.5-15.5 [facility] Comment on above: Order Comment: Speci men Type: BLOOD SPECIMENOrdering Facility: [facility] Address: [address] [place] [address] Performed By: #### 5 7021-8 ####[facility]CL[facility] [id number] [place] [address] [place] Immature granulocytes (Bld) [#/Vol] 10*3/uL Normal <0.10 [facility] Comment on above: Order Comment: Speci men Type: BLOOD SPECIMENOrdering Facility: [facility] Address: [address] [place] [address] Performed By: #### 5 7021-8 ####[facility]CL[facility] [id number] [place] [address] [place] Immature granulocytes/100 WBC (Bld) 0.2 % Normal [facility] Comment on above: Order Comment: Speci men Type: BLOOD SPECIMENOrdering Facility: [facility] Address: [address] [place] [address] Performed By: #### 5 7021-8 ####[facility]CL[facility] [id number] [place] [address] [place] Lymphocytes (Bld) [#/Vol] 2.26 10*3/uL Normal 1.00-4.00 [facility] Comment on above: Order Comment: Speci men Type: BLOOD SPECIMENOrdering Facility: [facility] Address: [address] [place] [address] Performed By: #### 5 7021-8 ####[facility]CL[facility] [id number] [place] [address] [place] Lymphocytes/100 WBC (Bld) 34.9 % Normal [facility] Comment on above: Order Comment: Speci men Type: BLOOD SPECIMENOrdering Facility: [facility] Address: [address] [place] [address] Performed By: #### 5 7021-8 ####[facility] [id number] [place] [address] [place] MCH (RBC) [Entitic mass] 26.8 pg Normal 26.0-34.0 [facility] Comment on above: Order Comment: Speci men Type: BLOOD SPECIMENOrdering Facility: [facility] Address: [address] [place] [address] Performed By: #### 5 7021-8 ####[facility]IA [id number] [place] [address] [place] MCHC (RBC) [Mass/Vol] 32.0 g/dL Normal 30.5-36.0 [facility] Comment on above: Order Comment: Speci men Type: BLOOD SPECIMENOrdering Facility: [facility] Address: [address] [place] [address] Performed By: #### 5 7021-8 ####[facility]IA [id number] [place] [address] [place] MCV (RBC) [Entitic vol] 83.9 fL Normal 80.0-100.0 [facility] Comment on above: Order Comment: Speci men Type: BLOOD SPECIMENOrdering Facility: [facility] Address: [address] [place] [address] Performed By: #### 5 7021-8 ####[facility]IA [id number] [place] [address] [place] Monocytes (Bld) [#/Vol] 0.45 10*3/uL Normal <0.87 [facility] Comment on above: Order Comment: Speci men Type: BLOOD SPECIMENOrdering Facility: [facility] Address: [address] [place] [address] Performed By: #### 5 7021-8 ####[facility] LABIA [id number] [address] [place] Monocytes/100 WBC (Bld) 6.9 % Normal [facility] Comment on above: Order Comment: Speci men Type: BLOOD SPECIMENOrdering Facility: [facility] Address: [address] [place] [address] Performed By: #### 5 7021-8 ####[facility]CL[facility] [id number] [address] [place] [address] [place] Neutrophils (Bld) [#/Vol] 3.57 10*3/uL Normal 1.45-7.50 [facility] Comment on above: Order Comment: Speci men Type: BLOOD SPECIMENOrdering Facility: [facility] Address: [address] [place] [address] Performed By: #### 5 7021-8 ####[facility] [id number] [address], [place] [address] [place] Neutrophils/100 WBC (Bld) 55.1 % Normal [facility] Comment on above: Order Comment: Speci men Type: BLOOD SPECIMENOrdering Facility: [facility] Address: [address] [place] [address] Performed By: #### 5 7021-8 ####[facility] [id number] [address], [facility] [place] Nucleated RBC (Bld) [#/Vol] 10*3/uL Normal <0.01 [facility] Comment on above: Order Comment: Speci men Type: BLOOD SPECIMENOrdering Facility: [facility] Address: [address] [place] [address] Performed By: #### 5 7021-8 ####[facility]CL[facility] [id number] [facility] [place] [id number] [place] Nucleated RBC/100 WBC (Bld) [Ratio] 0.0 /100 WBC Normal [facility] Comment on above: Order Comment: Speci men Type: BLOOD SPECIMENOrdering Facility: [facility] Address: [address] [place] [address] Performed By: #### 5 7021-8 ####[facility]CL[facility] [id number] [address] [place] [address] [place] Platelet mean volume (Bld) [Entitic vol] 10.2 fL Normal 9.0-12.7 [facility] Comment on above: Order Comment: Speci men Type: BLOOD SPECIMENOrdering Facility: [facility] Address: [address] [place] [address] Performed By: #### 5 7021-8 ####[facility]IA [id number] [place] [address] [place] Platelets (Bld) [#/Vol] 312 10*3/uL Normal 150-400 [facility] Comment on above: Order Comment: Speci men Type: BLOOD SPECIMENOrdering Facility: [facility] Address: [address] [place] [address] Performed By: #### 5 7021-8 ####[facility]IA [id number] [place] [address] [place] RBC (Bld) [#/Vol] 4.47 10*6/uL Normal 3.90-5.20 [facility] Comment on above: Order Comment: Speci men Type: BLOOD SPECIMENOrdering Facility: [facility] Address: [address] [place] [address] Performed By: #### 5 7021-8 ####[facility]IA [id number] [place] [address] [place] WBC (Bld) [#/Vol] 6.48 10*3/uL Normal 3.70-11.00 [facility] Comment on above: Order Comment: Speci men Type: BLOOD SPECIMENOrdering Facility: [facility] Address: [address] [place] [address] Performed By: #### 5 7021-8 ####[facility] LABIA [id number] [place] [id number] [place] CNOVon 05-01-2025 [facility] PER FARMER ([id number]) 1995 F DEF Date Time Provider Department 05/01/25 10:40 AM DI ARREOLA During your visit today, we recorded the following information about you: Pulse Respiration Blood pressure 69/minute 16/minute 110/72 Di Arreola APRN.GEAR MACHINIST 05/01/2025 8:19 PM Signed This is a 29 year old female who presents today with: Patient presents with: Acute Visit: RLQ pain intermittent since oophorectomy in HISTORY OF PRESENT ILLNESS: Per Farmer is a 29 year old female. Patient presents with: Acute Visit: RLQ pain intermittent since oophorectomy in Jul/Aug Recently moved back to the area from [place] after being gone for about 2 years. Needs medication refills. Seizures. On Keppra. No seizures for 5-6 years. Was following with neurology in [place]. Recently released back to driving. Abdominal pain: [...] syndrome. Prediabetes PTSD (post-traumatic stress disorder) Seizures ([facility]) 12/01/2017 psychogenic nonepileptical Tobacco use disorder Trichomoniasis [...] 1 mL (more content not included)... Normal [facility] Tyrese 05-01-2025 ACE Telephone (POLINAWS) PER FARMER ([id number]) 1995 F DEF Date Time Provider Department 05/01/25 DI ARREOLA During your visit today, we recorded the following information about you: Di Arreola APRN.BAKARI 05/01/2025 8:15 PM Signed Can we please help patient get set up with women's health. She is requesting referral to oral surgery be sent to someone local in [place], as she does not have transportation. Can we please fax GI referral, notes, and last colonoscopy report to Dr. Granados's office. Di Arreola APRN.Nishant Mak LPN 05/02/2025 8:30 AM Signed Pt is scheduled to see HAND BRIM IRONER on 05/22/25. GI referral, notes, and last colonoscopy report faxed to Dr. Granados's office. Oral surgery referral faxed to [facility] (Dr. Hoffman). Nishant Mills LPN [...] Encounter Status:Closed by NISHANT MILLS on 05/02/25 [facility] Telephone ([facility]) PER FARMER ([id number]) 1995 F DEF Date Time Provider Department 05/01/25 CHARLENE GENAO [facility] During your visit today, we recorded the following information about you: Yoel Colon 05/01/2025 12:03 PM Signed Left VM to schedule with oral surgery. Allergies As [...] Status:Closed by YOEL COLON on 05/01/25 Normal [facility] Comprehensive metabolic 2000 panelon 05-01-2025 Albumin [Mass/Vol] 4.5 g/dL Normal 3.9-4.9 [facility] Comment on above: Order Comment: Speci men Type: BLOOD SPECIMENOrdering Facility: [facility] Address: [address] [place] [address] Performed By: #### 2 4323-8, 3016-3, 3040-3 ####[facility] [id number] [place] [address] [place] ALP [Catalytic activity/Vol] 47 U/L Normal 34-123 [facility] Comment on above: Order Comment: Speci men Type: BLOOD SPECIMENOrdering Facility: [facility] Address: [address] [place] [address] Performed By: #### 2 4323-8, 3016-3, 3040-3 ####[facility] [id number] [address] [address] [place] ALT [Catalytic activity/Vol] 11 U/L Normal 7-38 [facility] Comment on above: Order Comment: Speci men Type: BLOOD SPECIMENOrdering Facility: [facility] Address: [address] [place] [place] [id number] Performed By: #### 2 4323-8, 3016-3, 3040-3 ####[facility] [id number] [facility] [address] [address] [place] Anion gap [Moles/Vol] 12 mmol/L Normal 8-15 [facility] Comment on above: Order Comment: Speci men Type: BLOOD SPECIMENOrdering Facility: [facility] Address: [address] [place] [address] Performed By: #### 2 4323-8, 3016-3, 3040-3 ####[facility] [id number] [place] [id number] [place] AST [Catalytic activity/Vol] 12 U/L Low 13-35 [facility] Comment on above: Order Comment: Speci men Type: BLOOD SPECIMENOrdering Facility: [facility] Address: [address] [place], [place] [address] Performed By: #### 2 4323-8, 3016-3, 3040-3 ####[facility] [id number] [address] [address] [place] Bilirubin [Mass/Vol] 0.2 mg/dL Normal 0.2-1.3 [facility] Comment on above: Order Comment: Speci men Type: BLOOD SPECIMENOrdering Facility: [facility] Address: [address] [place] [address] Performed By: #### 2 4323-8, 3016-3, 3040-3 ####[facility] [id number] [facility] [address] [address] [place] Calcium [Mass/Vol] 9.6 mg/dL Normal 8.5-10.2 [facility] Comment on above: Order Comment: Speci men Type: BLOOD SPECIMENOrdering Facility: [facility] Address: [address] [place], [place] [address] Performed By: #### 2 4323-8, 3016-3, 3040-3 ####[facility] [id number] [address] [address] [place] Chloride [Moles/Vol] 109 mmol/L High 98-107 [facility] Comment on above: Order Comment: Speci men Type: BLOOD SPECIMENOrdering Facility: [facility] Address: [address] [place], [place] [address] Performed By: #### 2 4323-8, 3016-3, 3040-3 ####[facility] [id number] [place] [address] [place] CO2 [Moles/Vol] 19 mmol/L Low 22-30 [facility] Comment on above: Order Comment: Speci men Type: BLOOD SPECIMENOrdering Facility: [facility] Address: [address] [place] [address] Performed By: #### 2 4323-8, 3016-3, 3040-3 ####[facility] LABIA [id number] [place] [address] [place] Creatinine [Mass/Vol] 0.68 mg/dL Normal 0.58-0.96 [facility] Comment on above: Order Comment: Speci men Type: BLOOD SPECIMENOrdering Facility: [facility] Address: [address] [place], [place] [address] Performed By: #### 2 4323-8, 3016-3, 3040-3 ####[facility] LABIA [id number] [place] [id number] [place] Creatinine and Glomerular filtration rate.predicted panel (S/P/Bld) 123 mL/min/1.73m??? Normal >=60 [facility] Comment on above: Order Comment: Speci men Type: BLOOD SPECIMENOrdering Facility: [facility] Address: [address] [place] [address] Result Comment: Abbie mated Glomerular Filtration Rate [...] accurately reflect actual GFR. Performed By: #### 2 4323-8, 3016-3, 3040-3 ####[facility] [id number] [address] [address] [place] Glucose [Mass/Vol] 87 mg/dL Normal 74-99 [facility] Comment on above: Order Comment: Jennifer gorman Type: BLOOD SPECIMENOrdering Facility: [facility] Address: [address] [place] [address] Result Comment: The [place] Diabetes Association (ADA) provides guidance for cutoff [...] Standards of Medical Care in Diabetes 2016, [place] Diabetes Association. Diabetes Care. 2016.39(Suppl 1). Performed By: #### 2 4323-8, 3016-3, 3040-3 ####[facility] LABIA [id number] [address] [address] [place] Potassium [Moles/Vol] 4.1 mmol/L Normal 3.7-5.1 [facility] Comment on above: Order Comment: Jennifer gorman Type: BLOOD SPECIMENOrdering Facility: [facility] Address: [address] [place] [address] Performed By: #### 2 4323-8, 3016-3, 3040-3 ####[facility]IA [id number] [address] [address] [place] Protein [Mass/Vol] 7.0 g/dL Normal 6.3-8.0 [facility] Comment on above: Order Comment: Speci men Type: BLOOD SPECIMENOrdering Facility: [facility] Address: [address] [place], [place] [address] Performed By: #### 2 4323-8, 3016-3, 3040-3 ####[facility]IA [id number] [place] [id number] [place] Sodium [Moles/Vol] 140 mmol/L Normal 136-144 [facility] Comment on above: Order Comment: Speci men Type: BLOOD SPECIMENOrdering Facility: [facility] Address: [address] [place] [address] Performed By: #### 2 4323-8, 3016-3, 3040-3 ####[facility]IA [id number] [place] [phone] [place] Urea nitrogen [Mass/Vol] 10 mg/dL Normal 7-21 [facility] Comment on above: Order Comment: Speci men Type: BLOOD SPECIMENOrdering Facility: [facility] Address: [address] [place], [place] [address] Performed By: #### 2 4323-8, 3016-3, 3040-3 ####[facility]IA [id number] [address] [address] [place] FOLATE, SERUMon 05-01-2025 Folate [Mass/Vol] 9.7 ng/mL 4.7 - PINF ng/mL [facility] Folate SerPl-mCncon 05-01-20 25 Folate [Mass/Vol] 9.7 ng/mL Normal >4.7 [facility] Comment on above: Order Comment: Speci men Type: BLOOD SPECIMENOrdering Facility: [facility] Address: [address] [place] [address] Performed By: #### 2 284-8, 2132-9 ####[facility] LABIA [id number] [place] [address] [place] HbA1c (Bld)on 05-01-2025 Average glucose Estimated from glycated hemoglobin (Bld) [Mass/Vol] 100 mg/dL [facility] Comment on above: eAG: (Estimated aver age glucose) is a calculated value from HgbA1c and is vendor representatives of the average blood glucose level in the last 2-3 month period. HbA1c (Bld) [Mass fraction] 5.1 % 4.3 - 5.6 % [facility] Comment on above: [place] Diabetes As sociation guidelines indicate that patients with HgbA1c in the range 5.7-6.4% are at increased risk for development of diabetes, and intervention by lifestyle modification may be beneficial. HgbA1c greater or equal to 6.5% is considered diagnostic of diabetes. [facility] Average glucose Estimated from glycated hemoglobin (Bld) [Mass/Vol] 100 mg/dL Normal [facility] Comment on above: Order Comment: Jennifer gorman Type: BLOOD SPECIMENOrdering Facility: [facility] Address: [address] [place] [address] Result Comment: eAG: (Estimated average glucose) is a calculated value from HgbA1c and is vendor representatives of the average blood glucose level in the last 2-3 month period. Performed By: #### 5 5454-3 ####[facility] LABIA [id number] [address] [place] HbA1c (Bld) [Mass fraction] 5.1 % Normal 4.3-5.6 [facility] Comment on above: Order Comment: Jennifer gorman Type: BLOOD SPECIMENOrdering Facility: [facility] Address: [address] [place] [address] Result Comment: [place] Diabetes Association guidelines indicate that patients with HgbA1c in the range 5.7-6.4% are at increased risk for development of diabetes, and intervention by lifestyle modification may be beneficial. HgbA1c greater or equal to 6.5% is considered diagnostic of diabetes. Performed By: #### 5 5454-3 ####[facility]CL[facility] [id number] [place] [address] [place] [facility] Insulin SerPl-aCncon 025 Insulin Qn 13.8 uU/mL Normal 2.6-24.9 [facility] Comment on above: Order Comment: Speci men Type: BLOOD SPECIMENOrdering Facility: [facility] Address: [address] [place] [address] Result Comment: Refe rence intervals established for fasting specimens. Performed By: #### 2 0448-7 ####[facility] LABIA [id number] [address] [place] Lipase SerPl-cCncon 05-01-20 25 Lipase [Catalytic activity/Vol] 44 U/L Normal 16-61 [facility] Comment on above: Order Comment: Speci men Type: BLOOD SPECIMENOrdering Facility: [facility] Address: [address] [place] [address] Performed By: #### 2 4323-8, 3016-3, 3040-3 ####[facility] LABIA [id number] [address] [place] No Panel Informationon 05-01 Interpretation and review of laboratory results Normal [facility] TSH SerPl-aCncon 05-01-2025 TSH Qn 1.580 m[IU]/L Normal 0.270-4.20 0 [facility] Comment on above: Order Comment: Speci men Type: BLOOD SPECIMENOrdering Facility: [facility] Address: [address] [place] [address] Result Comment: If t he patient is , TSH reference range varies by gestational period: First Trimester (weeks 9-12): 0.180-2.990 mIU/L Second Trimester: 0.110-3.980 mIU/L Third Trimester: 0.480-4.710 mIU/L Martell Salas et al. A Practical Approach for the Verifications and Determination of Site- and Trimester-Specific Reference Intervals for Thyroid Function tests in . Thyroid, 2019:29:3:412-420. Luís Rowland, et al. 2017 Guidelines of the [place] Thyroid Association for the Diagnosis and Management of Thyroid Disease during and the . Thyroid, 2017:27:3:315-389. Performed By: #### 2 4323-8, 3016-3, 3040-3 ####[facility] LABIA [id number] [place] [address] [place] VITAMIN B12on 05-01-2025 Cobalamin (Vitamin B12) [Mass/Vol] 397 pg/mL 232 - 1245 pg/mL [facility] Vit B12 SerPl-mCncon 025 Cobalamin (Vitamin B12) [Mass/Vol] 397 pg/mL Normal 232-1245 [facility] Comment on above: Order Comment: Speci men Type: BLOOD SPECIMENOrdering Facility: [facility] Address: [address] [place] [address] Performed By: #### 2 284-8, 2132-9 ####[facility], INCIA [id number] [place] [address] [place] XR DIGIT 3V FRONTAL/LAT/OBL [...] soft tissue swelling. No acute osseous abnormality. Pruner: KACI Transcribe Date/Time: May 03 2025 7:38A Dictated by : TRENTON DUMONT MD This examination was interpreted and the report reviewed and electronically signed by: TRENTON DUMONT MD on May 03 2025 7:38AM EST [id number] Normal [facility] Glucose Glucometer (BldC) [M ass/Vol]Ordered By: Dr. Garza on 02-06-2023 Glucose [Mass/Vol] 130 mg/dL 74-106 [facility] Comment on above: MANAGEMENT OF PATIEN T CARE PER NURSING PROTOCOL CNOVon 01-19-2023 CNOV Office Visit (AGGENS 1) PER FARMER ([id number]) 1995 F DEF Date Time Provider Department 01/19/23 11:30 AM CECILIA CRAIG1 During your visit today, we recorded the following information about you: Pulse Blood pressure Weight Height 81/minute 121/81 94.8 kg 1.676 m Cecilia Craig PA-C 01/19/2023 1:08 PM Signed Cecilia Craig PA-C Hepatobiliary Surgery 1 [facility], [address] [place] [address] SUBJECTIVE Per Ira Farmer is a 27 year old female [...] [P96.89, R2 (more content not included)... Normal [facility] ANES POSTPROC EVALon 023 ANES POSTPROC EVAL HNO ID: [id number] Author: Rufino Vazquez MD Service: Anesthesiology Author Type: Physician Type: Anesthesia Postprocedure Evaluation Filed: 12/31/2022 3:15 PM Note Text: POST ANESTHESIA EVALUATION NOTE : 1995 Procedure Summary Date: 12/31/22 Room / Location: [address] OR Anesthesia Start: 957 Anesthesia Stop: 1107 [...] December 31, 2022 TIME: 3:14 PM CSN: [id number] Normal [facility] ANES PRE-OPon 12-31-2022 ANES PRE-OP HNO ID: [id number] Author: Rufino Vazquez MD Service: Anesthesiology Author Type: Physician Type: Anesthesia Preprocedure Evaluation Filed: 12/31/2022 9:20 AM Note Text: ANESTHESIOLOGY DAY OF SURGERY NOTE : 1995 Procedure Information Date/Time: 12/31/22 0940 Procedure: LAPAROSCOPIC CHOLECYSTECTOMY POSSIBLE OPEN Location: [place] OR / OR Surgeons: Juaquin Walsh MD Estimated body mass index is 33.73 kg/m? as calculated from the following: Height as of 12/24/22: 167.6 cm (5' 6). Weight as of [...] and consent discussed: yes. Patient / Responsible Alliance Party agrees to proceed: yes Patient / Surrogate [...] December 31, 2022 TIME: 9:19 AM CSN: [id number] [facility] OPERATIVE NOon 12-31-2022 OPERATIVE NO HNO ID: [id number] Author: Xiomy Norton DO Service: General Surgery [...] 2022 11:36 AM OPERATIVE/PROCEDURE REPORT LOG ID: [id number] SURGERY/PROCEDURE DATE: 12/31/2022 INCISION/PROCEDURE START TIME: 10:21 AM INCISION CLOSE/PROCEDURE END TIME: 10:52 AM SURGEON(S)/PROCEDURALIST(S) AND HAT FINISHING MATERIALS PREPARER(S): Surgeon(s) and Role: * Juaquin Walsh MD [...] December 31, 2022 TIME: 11:05 AM Normal [facility] SURGICAL PATHOLOGYon 023 CASE REPORT Normal [facility] Comment on above: Order Comment: Speci men Type: TISSUE SPECIMEN Ordering Facility: [facility] Address: [address] [place] [address] Result Comment: Surg ical Pathology Report Case: [id number] Authorizing Provider: Juaquin Walsh MD Collected: 12/31/2022 10:41 AM Ordering Location: [place] [facility] Received: 12/31/2022 01:33 PM Pathologist: Serina Armas MD Specimen: [id number] Performed By: #### S #### [facility] CLIA [id number] [address] CLINICAL HISTORY Normal [facility] Comment on above: Order Comment: Speci men Type: TISSUE SPECIMEN Ordering Facility: [facility] Address: [address] [place] [address] Result Comment: Pre- op diagnosis: Biliary colic [K80.50] Performed By: #### S #### [facility] CLIA [id number] [address] FINAL DIAGNOSIS Normal [facility] Comment on above: Order Comment: Speci men Type: TISSUE SPECIMEN Ordering Facility: [facility] Address: [address] [place] [address] Result Comment: A. G allbladder, laparoscopic cholecystectomy: -- Gallbladder with focal cholesterolosis. Performed By: #### S #### [facility] CLIA [id number] [address] [place] [address] FINAL PERFORMING LAB Normal [facility] Comment on above: Order Comment: Speci men Type: TISSUE SPECIMEN Ordering Facility: [facility] Address: [address] [place] [address] Result Comment: Diag nostic interpretation performed at [facility], [address] [place] [address] CLIA# [id number] Award Clerk: Kurt Ramos M.D. Performed By: #### S #### [facility] CLIA [id number] [address] [place] [address] GROSS DESCRIPTION A. GALLBLADDER Normal [facility] Comment on above: Order Comment: Speci men Type: TISSUE SPECIMEN Ordering Facility: [facility] Address: [address] [place] [address] Result Comment: A. R eceived in formalin [...] cystic duct. The mucosal surface is bile-stained. Leasing Machine Tender sections are submitted in formalin in 1 cassette. Gross examination performed at [facility], [address] [place] [address] KVB December 31, 2022 2:30 PM Performed By: #### S #### [facility] CLIA [id number] [address] [place] [address] HCG QUAL UR B/Oon 12-28-2022 status Negative neg - pos [facility] Quality Check Yes [facility] HISTORY PHYSICALon HISTORY PHYSICAL HNO ID: [id number] Author: Rupal Gibson APRN.GEAR MACHINIST Service: ? Author Type: Nurse Practitioner Type: [...] Negative for: dysuria, hematuria and renal failure. HAND BRIM IRONER: Positive for: vaginal bleeding. Endocrine: Pre diabetes [...] Prior to Admission medications as of 12/22/22 7236 Medication Sig Last Dose Taking ibuprofen (MOTRIN) [...] Yes myrna (more content not included)... Normal [facility] CNOVon 11-10-2022 CNOV Office Visit (AGGENS 1) ЕЛЕНАPER Roth ([id number]) 1995 F DEF Date Time Provider Department 11/10/22 10:45 AM JUAQUIN WALSH AGGENS1 During your visit today, we recorded the following information about you: Pulse Blood pressure Weight Height 88/minute 114/79 93.9 kg 1.702 m Juaquin Walsh MD 11/10/2022 11:02 AM Signed Patient referred by: Sophie Avalos [address] [facility] [address] HPI: This is a new patient consult [...] use: No Current Outpatient Medications Medication Sig bymxjjmowustysx-FB-mbhzMARvm in (CAPMIST DM) 60-15-400 mg tab Take [...] which included preparing to see the patient, uack-jn-fgap patient care, completing clinical documentation, obtaining and/or reviewing separately obtained history, performing a medically appropriate examination, counseling and educating the patient/family/caregiver, ordering medications, tests, or procedures, and communicating results to the patient/family/caregiver. . Greater than 50% of the direct patient contact time was spent in counseling or coordination of care. Me (more content not included)... Normal [facility] Influenza virus A and B and SARS-CoV-2 (COVID-19) Ag panel - Upper respiratory specimOrdered By: Dr. Birch on 10-17-2022 SARS-CoV-2 (COVID-19) RNA VIVIAN+probe Ql (Resp) [facility] EMG(NEURO/NI)on 09-18-2022 [facility] XR Chest PA and Lateralon IMPRESSION: No acute radiographic abnormality. Pruner: PSCB Transcribe Date/Time: Sep 05 2022 6:42P Dictated by : PATRIA STEVE MD This examination was interpreted and the report reviewed and electronically signed by: PATRIA STEVE MD on Sep 05 2022 6:42PM [facility] DIVISION OF RADIOLOGY * * *Final Report* [...] soft tissues: Unremarkable. DIVISION OF RADIOLOGY Provider, [facility] - 09/05/2022 * * *Final Report* * [...] Unremarkable. IMPRESSION IMPRESSION: No acute radiographic abnormality. Pruner: PSCB Transcribe Date/Time: Sep 05 2022 6:42P Dictated by : PATRIA STEVE MD This examination was interpreted and the report reviewed and electronically signed by: PATRIA STEVE MD on Sep 05 2022 6:42PM EST [facility] Radiology Study observation (narrative) [facility] XR Chest PA and LateralOrder ed By: Ccf Provider on 09-05-2022 [facility] Absolute lymphocyte counton 07-31-2022 Lymphocytes Auto (Unsp spec) [#/Vol] 3.10 10*3/uL 0.83-4.51 [facility] Work Phone: Basophil percentageon 2021 Basophil percentage 0-5 SEEN /hpf 0-5 [facility] Work Phone: Basophils/100 WBC (Bld) 0.6 % 0-1 [facility] Work Phone: Bilirubin [Mass/Vol] 0.30 mg/dL 0.20-1.00 [facility] Work Phone: Comment on above: For patients on eltr ombopag therapy, use of Dimension [place] TBIL is not recommended. Chloride [Moles/Vol] 114 mmol/L 98-107 [facility] Work Phone: [phone] Eosinophils/100 WBC (Bld) 2.0 % 0-5 [facility] Work Phone: Glucose [Mass/Vol] 98 mg/dL 74-106 [facility] Work Phone: Neutrophils (Bld) [#/Vol] 4.7 10*3/uL 2.0-7.7 [facility] Work Phone: Neutrophils/100 WBC (Bld) 54.7 % 47-70 [facility] Work Phone: Potassium [Moles/Vol] 3.5 mmol/L 3.5-5.1 [facility] Work Phone: Protein [Mass/Vol] 7.6 g/dL 6.4-8.2 [facility] Work Phone: Sodium [Moles/Vol] 142 mmol/L 136-145 [facility] Work Phone: WBC (Bld) [#/Vol] 8.6 10*3/uL 4.4-11.0 [facility] Work Phone: Beta hCG serum qualon 2021 Beta HCG ( test) Ql Negative [facility] Work Phone: Bilirubin Test strip Ql (U)o n 07-31-2022 Bilirubin Ql (U) Negative Negative [facility] Work Phone: Blood erythrocytes count (nu mber/volume)on 07-31-2022 RBC (Bld) [#/Vol] 4.95 10*6/uL 4.2-5.4 [facility] Work Phone: [phone] Blood hemoglobin measurement (mass/volume)on 07-31-2022 Hemoglobin (Bld) [Mass/Vol] 13.8 g/dL 12.0-15.0 [facility] Work Phone: Blood lymphocytes/100 leukoc yteson 07-31-2022 Lymphocytes/100 WBC (Bld) 36.1 % 19-41 [facility] Work Phone: Blood monocytes/100 leukocyt eson 07-31-2022 Monocytes/100 WBC (Bld) 6.5 % 0-10 [facility] Work Phone: Blood platelet mean volumeon 07-31-2022 Platelet mean volume (Bld) [Entitic vol] 9.2 fL 6.2-12.0 [facility] Work Phone: Determination of erythrocyte mean corpuscular volume (MCV)on 07-31-2022 MCV (RBC) [Entitic vol] 85.5 fL 81-99 [facility] Work Phone: Hematocrit Auto (Bld) [Volum e fraction]on 07-31-2022 Hematocrit (Bld) [Volume fraction] 42.3 % 37-47 [facility] Work Phone: Ketones Test strip Ql (U)on 07-31-2022 Ketones Ql (U) Negative Negative [facility] Work Phone: Laboratory - Chemistry and C hemistry - challengeon 07-31-2022 ALP [Catalytic activity/Vol] 67 U/L 45-117 [facility] Work Phone: ALT [Catalytic activity/Vol] 17 U/L 13-56 [facility] Work Phone: CO2 [Moles/Vol] 20.0 mmol/L 21.0-32.0 [facility] Work Phone: Globulin (S) [Mass/Vol] 4.0 g/dL 2.2-4.2 [facility] Work Phone: Lipase [Catalytic activity/Vol] 155 U/L 73-393 [facility] Work Phone: Urea nitrogen/Creatinine [Mass ratio] 8.3 mg/mg 10-20 [facility] Work Phone: Laboratory - Hematology and Cell countson 07-31-2022 Erythrocyte distribution width (RBC) [Entitic vol] 41.7 fL 35.1-43.9 [facility] Work Phone: Erythrocyte distribution width (RBC) [Ratio] 13.3 % 11.6-14.6 [facility] Work Phone: Immature granulocytes/100 WBC (Bld) 0.100 % 0.0-0.9 [facility] Work Phone: Comment on above: IG% - Immature Granu locytes (promyelocytes, myelocytes and metamyelocytes) > 1% indicates that a LEFT SHIFT is Present. MCH (RBC) [Entitic mass] 27.9 pg 27.0-32.0 [facility] Work Phone: Nucleated RBC/100 WBC (Bld) [Ratio] 0 % 0-5 [facility] Work Phone: MCHC Auto (RBC) [Mass/Vol]on 07-31-2022 MCHC (RBC) [Mass/Vol] 32.6 g/dL 32-36 [facility] Work Phone: Mucus LM Ql (Urine sed)on Mucus Ql (Urine sed) 0 SEEN /hpf [facility] Work Phone: Nitrite Test strip Ql (U)on 07-31-2022 Nitrite Ql (U) Negative Negative [facility] Work Phone: No Panel Informationon 07-31 Estimated Creatinine Clearance Calc 107.48 ml/min [facility] Work Phone: Estimated GFR (MDRD) Amer 126 mL/min >60 [facility] Work Phone: Comment on above: GFR Calc Estimated GFR (MDRD) Non-Af Amer 104 mL/min >60 [facility] Work Phone: Comment on above: Non- GFR Calc Platelets bldon 07-31-2022 Platelets (Bld) [#/Vol] 327 10*3/uL 150-450 [facility] Work Phone: Protein Test strip Ql (U)on 07-31-2022 Protein Ql (U) 15 mg/dl Negative [facility] Work Phone: Serum or plasma albumin genesis urement (mass/volume)on 07-31-2022 Albumin [Mass/Vol] 3.6 g/dL 3.2-5.0 [facility] Work Phone: Serum or plasma albumin/glob ulin mass ratioon 07-31-2022 Albumin/Globulin [Mass ratio] 0.9 {ratio} 0.9-2.4 [facility] Work Phone: Serum or plasma calcium genesis urement (mass/volume)on 07-31-2022 Calcium [Mass/Vol] 9.0 mg/dL 8.5-10.1 [facility] Work Phone: Serum or plasma creatinine m easurement (mass/volume)on 07-31-2022 Creatinine [Mass/Vol] 0.72 mg/dL 0.55-1.02 [facility] Work Phone: Comment on above: The validity of the calculated GFR & GFRAA in patients over 70 years has not been determined. Clinical correlation is essential. Serum or plasma urea nitroge n measurement (mass/volume)on 07-31-2022 Urea nitrogen [Mass/Vol] 6 mg/dL 7-18 [facility] Work Phone: Squamous epithelial cells de tection in urine sediment by light microscopyon 07-31-2022 Epithelial cells.squamous LM Ql (Urine sed) 0-5 SEEN /hpf 5-10 [facility] Work Phone: Thin prep Papanicolaou smear with manual screeningon 07-31-2022 Thin prep Papanicolaou smear with manual screening 8 U/L 15-37 [facility] Work Phone: Thin prep Papanicolaou smear with manual screening 8 5-15 [facility] Work Phone: Urine blood detectionon RBC Ql (U) 10 /ul Negative [facility] Work Phone: RBC Ql (U) 0-5 SEEN /hpf 0-5 [facility] Work Phone: Urine clarityon 07-31-2022 Clarity (U) Sl. Cloudy Clear [facility] Work Phone: Urine color determinationon 07-31-2022 Color (U) Yellow Yellow [facility] Work Phone: Urine glucose detectionon Glucose Ql (U) Normal mg/dl Normal [facility] Work Phone: Urine leukocyte esterase det ection by dipstickon 07-31-2022 Leukocyte esterase Test strip Ql (U) 100 /ul Negative [facility] Work Phone: Urine pHon 07-31-2022 pH (U) 5.0 [pH] 5.0 - 8.0 [facility] Work Phone: Urine sediment bacteria coun t by microscopy (number/high power field)on 07-31-2022 Bacteria LM.HPF (Urine sed) [#/Area] 3 /[HPF] None Seen [facility] Work Phone: Urine specific gravity measu rementon 07-31-2022 Specific gravity (U) [Rel density] 1.025 1.002-1.03 0 [facility] Work Phone: Urobilinogen Auto test strip Ql (U)on 07-31-2022 Urobilinogen Ql (U) 1 mg/dl Normal [facility] Work Phone: XR Lumbar spine 3 Viewson IMPRESSION: Negative lumbosacral spine. Pruner: PSCB Transcribe Date/Time: Jul 21 2022 1:02P Dictated by : JEAN-CLAUDE NARANJO MD This examination was interpreted and the report reviewed and electronically signed by: JEAN-CLAUDE NARANJO MD on Jul 21 2022 1:03PM [facility] DIVISION OF RADIOLOGY * * *Final Report* [...] relevant examinations available for comparison within the [facility] Imaging Archives. RESULT: Counting reference: [...] tissues are unremarkable. DIVISION OF RADIOLOGY Provider, [facility] - 07/21/2022 * * *Final Report* * [...] relevant examinations available for comparison within the [facility] Imaging Archives. RESULT: Counting reference: [...] are unremarkable. IMPRESSION IMPRESSION: Negative lumbosacral spine. Pruner: KACI Transcribe Date/Time: Jul 21 2022 1:02P Dictated by : JEAN-CLAUDE NARANJO MD This examination was interpreted and the report reviewed and electronically signed by: JEAN-CLAUDE NARANJO MD on Jul 21 2022 1:03PM EST [facility] Radiology Study observation (narrative) [facility] XR Lumbar spine 3 ViewsOrder ed By: Ccf Provider on 07-21-2022 [facility] NM HEPATOBILIARY W EF AND/OR RXon 07-16-2022 [facility] No Panel Informationon 07-06 [facility] XR Elbow - right AP and Late ralon 06-09-2022 IMPRESSION: Radiographic findings present which can be seen in association with olecranon bursitis. Pruner: PSCB Transcribe Date/Time: Jun 09 2022 1:11P Dictated [...] bursitis. ZZZ_DO_NOT_ USE_DIVISIO N OF RADIOLOGY Provider, Jaydon clinton [place] - 06/09/2022 * * *Final Report* * [...] be seen in association with olecranon bursitis. Pruner: KACI Transcribe Date/Time: Jun 09 2022 1:11P Dictated by : JEAN-CLAUDE NARANJO MD This examination was interpreted and the report reviewed and electronically signed by: JEAN-CLAUDE NARANJO MD on Jun 09 2022 1:12PM EST [facility] XR Elbow - right AP and Late ralOrdered By: Ccf Provider on 06-09-2022 [facility] XR Elbow - right AP and Late ralon 06-08-2022 Radiology Study observation (narrative) [facility] XR SHOULDER GENERAL 3V OR MO RE AP/TRUE AP/OTHER RIGHTon 04-30-2022 [facility] XR Shoulder - right 3 Viewso n 04-30-2022 IMPRESSION: Negative 3 views of the right shoulder. Pruner: PSYCHIATRIC Transcribe Date/Time: Apr 30 2022 3:08P Dictated [...] There is no significant soft tissue swelling. ZZZ_DO_NOT_ USE_DIVISIO N OF RADIOLOGY Provider, [facility]cf Imagin [facility] - 04/30/2022 * * *Final Report* [...] Negative 3 views of the right shoulder. Pruner: [facility] Transcribe Date/Time: Apr 30 2022 3:08P Dictated by : DIANE SILVA MD This examination was interpreted and the report reviewed and electronically signed by: DIANE SILVA MD on Apr 30 2022 3:10PM EST [facility] Radiology Study observation (narrative) [facility] XR Shoulder - right 3 ViewsO rdered By: Ccf Provider on 04-30-2022 [facility] XR Chest PA and Lateralon IMPRESSION: No acute radiographic abnormality. Pruner: PSYCHIATRIC Transcribe Date/Time: Dec 09 2021 2:08P Dictated by : DIANE SILVA MD This examination was interpreted and the report reviewed and electronically signed by: DIANE SILVA MD on Dec 09 2021 2:09PM EST DIVISION OF RADIOLOGY * * *Final [...] Unremarkable. DIVISION OF RADIOLOGY Provider, Jaydon Francisco [facility] - 12/09/2021 * * *Final Report* [...] Unremarkable. IMPRESSION IMPRESSION: No acute radiographic abnormality. Pruner: PSCB Transcribe Date/Time: Dec 09 2021 2:08P Dictated by : DIANE SILVA MD This examination was interpreted and the report reviewed and electronically signed by: DIANE SILVA MD on Dec 09 2021 2:09PM EST [facility] Radiology Study observation (narrative) [facility] XR Chest PA and LateralOrder ed By: Cc Provider on 12-09-2021 [facility] [id number] 10-07-2021 Date of Onset [id number] Invalid Interpretation Code [facility] ([place]) Comment on above: Performed By: #### C OVD19 #### [id number] [place], [place] [address] Employed in Healthcare No Normal [facility] ([place] Comment on above: Performed By: #### C OVD19 #### [address] [place], [place] [address] First Test No Normal [facility] ([place] Comment on above: Performed By: #### C OVD19 #### [facility] [address] [place], [place] [address] Hospitalized No Normal [facility] ([place] Comment on above: Performed By: #### C OVD19 #### [id number] [place], [place] [address] ICU No Normal [facility] ([place] Comment on above: Performed By: #### C OVD19 #### [id number] [place], [place] [address] Not [facility] ([place]) Comment on above: Performed By: #### C OVD19 #### [place] [address] Resides in Congregate Care Setting No [facility] ([place]) Comment on above: Performed By: #### C OVD19 #### [address] [address] SARS-CoV-2 (COVID-19) RNA VIVIAN+probe Ql (Unsp spec) Negative Normal Negative [facility] ([place] Comment on above: Performed By: #### C OVD19 #### [place] [address] SARS-CoV-2 (COVID-19) RNA VIVIAN+probe Ql (Unsp spec) Normal [facility] ([place] Comment on above: Result Comment: Nega tive [...] Int Performed By: #### C OVD19 #### [id number] [place], [place] [address] Symptomatic as Defined by CDC Yes Normal [facility] ([place]) Comment on above: Performed By: #### C OVD19 #### [id number] [place], [place] [address] LABORATORYOrdered By: Brent Hendrix on 10-07-2021 ADMITTED [...] opy)on 09-30-2021 Protein (U) [Mass/Vol] Negative [facility] Work Phone: IO UA (automated w/o microscopy) Negative [facility] Work Phone: IO UA (automated w/o microscopy) (++)moderate - 40 [facility] Work Phone: COMPUTER PROGRAMMER ANALYST - Post Opon 1 COMPUTER PROGRAMMER ANALYST - Post Op Diagnoses/Problems Assessed Postoperative examination [...] op visit, last pap 05/06/21 wnl, no doll eye setter needed Adult Risk ScreeningThere are no spiritual/cultural [...] and Lateralon IMPRESSION: No acute radiographic abnormality. Pruner: KACI Transcribe Date/Time: Sep 23 2021 3:11P Dictated by : DIANA SALINAS DO This examination was interpreted and the report reviewed and electronically signed by: DIANA SALINAS DO on Sep 23 2021 3:13PM [facility] DIVISION OF RADIOLOGY * * *Final Report* [...] LEFT first rib. DIVISION OF RADIOLOGY Provider, [facility] Maryam [facility] - 09/23/2021 * * *Final Report* [...] rib. IMPRESSION IMPRESSION: No acute radiographic abnormality. Pruner: PSCCallum Transcribe Date/Time: Sep 23 2021 3:11P Dictated by : DIANA SALINAS DO This examination was interpreted and the report reviewed and electronically signed by: DIANA SALINAS DO on Sep 23 2021 3:13PM EST [facility] Radiology Study observation (narrative) [facility] XR Chest PA and LateralOrder ed By: Ccf Provider on 09-23-2021 [facility] GLUCOSE-POCTon 09-03-2021 Glucose [Mass/Vol] 103 mg/dL High 74 - 99 [facility] Comment on above: Performed By: #### G MERARY #### [place] [address] Laboratory - Chemistry and C hemistry - challengeon 09-03-2021 Glucose [Mass/Vol] 103 mg/dL above high threshold 74 - 99 [facility] Work Phone: Operative Reports - [facility] n 09-03-2021 Operative Reports - [address] [address] Patient Name: PER FARMER : 1995 Date of Service: 09/03/2021 Patient Location: [address] Patient Type: O Surgeon: Fred Murphy MD Report Type: Operative Reports PREOPERATIVE DIAGNOSIS: Pelvic pain. POSTOPERATIVE DIAGNOSES: 1. Pelvic pain. 2. Endometriosis of pelvis. 3. Endometrioma, right ovary OPERATIONS/PROCEDURES: 1. Diagnostic laparoscopy with fulguration of endometriosis. 2. Aspiration of right ovarian cyst. SURGEON: Fred Murphy MD HAT FINISHING MATERIALS PREPARER(S): ANESTHESIA: General. PROCEDURE IN DETAIL: Under satisfactory [...] stitch. The fascia was closed with a cgpedh-mn-hyrhg 2-0 Vicryl stitch. Dermabond was placed. Fred Murphy MD EST TT: 09/03/2021 12:56 PM EST DICTATION NUMBER: [id number] BART JOB NUMBER: [id number] CC: Sophie Avalos Electronic Signatures: Fred Murphy) (Signed on 04-Sep-2021 09:42) Authored Unsigned, Draft (SYS GENERATED) (Entered on 03-Sep-2021 12:56) Entered Last Updated: 04-Sep-2021 09:42 by Fred Murphy) [facility] Order Reconciliationon 09-03 Order Reconciliation Page 1 Discharge Reconciliation Document Reconciliation Type: Discharge requested on behalf of Yareli Mckay (Physician Court Manager) done by Yareli Mckay (PAC) Discharge [...] Patient Discharge (more content not included)... Normal [facility] Patient Profile - Preop v2on 09-03-2021 Patient Profile - Preop v2 Profile: Initial Info: How to be AddressedAmber(1) Spoken Language PreferredEnglish (1) Stated Reason for Admissionlaparoscopy Primary Contact Name and NumberDionisio Farmer Patient Belongingspatient educated regarding responsibility for personal items Medications Brought to Hospitalno General Health: Weight in kg84.1 kilogram(s) Weight in ubb799.4 pound(s) Weight Methodstated Height in feet5 feet [...] instruction; written material Cultural Considerationsnone Developmental Considerationsnone Pentecostalism Considerationsnone Other learner availableno [place] RiskPatient location auto qualifies him/her for HIGH RISK. Are there any cultural, spiritual, rastafari practices/values/needs that are important for us to [...] Information Last Updated: 03-Sep-2021 09:46 by Cecil Louis) References: 1. Data Referenced From Patient Profile - Preop v2 21-Jun-2019 10:06 [facility] Preop Checkliston 09-03-2021 Preop Checklist Preop Checklist: Preop Checklist: Arrival [id number] Arrival Time09:28 Procedure TypeLaparoscopy Diagnostic Temperature C36.9 degrees C Temperature F98.4 degrees F Heart Rate79 beats per minute Respiratory Rate20 breath per minute Blood Pressure Dmhaqdik470 mm/Hg Blood Pressure Zsrjoauck38 mm/Hg NPO [id number] 22:00 ID Band Onyes Allergy Bandyes Consent [...] Checklist Last Updated: 03-Sep-2021 09:50 by Cecil Louis) Normal [facility] CORONAVIRUS 2019, SCREEN ASY MPTOMATICon 09-02-2021 SARS-CoV-2 (COVID-19) RNA VIVIAN+probe Ql (Unsp spec) Not detected Normal Not Detected [facility] Comment on above: Result Comment: . This [...] patient management decisions. Fact sheet for providers: https://www.fda.gov/media/236520/download Fact sheet for patients: https://www.fda.gov/media/557585/download This test has received FDA Emergency Use Authorization (EUA) and has been verified by [facility] ([facility]). This test is only authorized for the duration of time that circumstances exist to justify the authorization of the emergency use of in vitro diagnostic tests for the detection of SARS-CoV-2 virus and/or diagnosis of COVID-19 infection under section 564(b)(1) of the Act, 21 U.S.C. 360bbb-3(b)(1), unless the authorization is terminated or revoked sooner. [facility] is certified under CLIA-88 as qualified to perform high complexity testing. Testing is performed in the [facility] laboratories located at [address] [place] [address]. Performed By: #### C OVSC #### [address] [place] [address] Covid 19 Resultson SARS-CoV-2 (COVID-19) RNA VIVIAN+probe Ql (Unsp spec) [...] be contacted by the [facility] to see if any of your close [...] or Naproxen (Aleve) can also be used. Wtlm-ysw-bcmkomc cough and cold medicines can be used according to the instructions on the package. Some icge-obr-plkvqop medicines also contain acetaminophen. Make sure you [...] water are not available, use alcohol-based hand creative guru. Avoid touching your eyes, nose, and mouth [...] 24 willie (more content not included)... Normal [facility] CORONAVIRUS 2019, SCREEN ASY MPTOMATICon 09-01-2021 Lab Specimen Source Nasal, Nasopharyngeal Normal [facility] Comment on above: Performed By: #### C OVSC #### [address] [place] [address] Coronavirus 2019 RNA by PCR, Screening Asymptomticon 09-01-2021 Coronavirus 2019 RNA by PCR, Screening Asymptomtic Not detected Normal See Below [facility]OBDAYANNANVilma nunez Work Phone: Comment on above: SOURCE: [...] make patient management decisions.Fact sheet for providers: https://www.fda.gov/media/954694/downloadFact sheet for patients: https://www.fda.gov/media/345226/downloadThis test has received FDA Emergency Use Authorization (EUA) and has been verified by [facility] ([facility]). This test is only authorized for the duration of time that circumstances exist to justify the authorization of the emergency use of in vitro diagnostic tests for the detection of SARS-CoV-2 virus and/or diagnosis of COVID-19 infection under section 564(b)(1) of the Act, 21 U.S.C. 360bbb-3(b)(1), unless the authorization is terminated or revoked sooner. [facility] is certified under CLIA-88 as qualified to perform high complexity testing. Testing is performed in the [facility] laboratories located at [id number] [place] [address]. BASIC METABOLIC PANELon 09-2 Anion gap [Moles/Vol] 16 mmol/L Normal - [facility] Comment on above: Performed By: #### B MP #### [facility] [address] [place] [address] Calcium [Mass/Vol] 9.5 mg/dL Normal 8.6 - 10.3 [facility] Comment on above: Performed By: #### B MP #### [address] [address] Chloride [Moles/Vol] 108 mmol/L High 98 - 107 [facility] Comment on above: Performed By: #### B MP #### [address] [address] Creatinine [Mass/Vol] 0.85 mg/dL Normal 0.50 - 1.05 [facility] Comment on above: Performed By: #### B MP #### [address] [address] GFR- AM. >60 Normal >60 [facility] Comment on above: Result Comment: CALC ULATIONS OF ESTIMATED GFR ARE PERFORMED USING THE MDRD STUDY EQUATION FOR THE IDMS-TRACEABLE CREATININE METHODS. CLIN CHEM 2007;53:766-72 Performed By: #### B MP #### [address] [address] GFR-NON AM. >60 Normal >60 [facility] Comment on above: Performed By: #### B MP #### [address] [address] Glucose [Mass/Vol] 72 mg/dL Low 74 - 99 [facility] Comment on above: Performed By: #### B MP #### [address] [address] HCO3 (Bld) [Moles/Vol] 18 mmol/L Low 21 - 32 [facility] Comment on above: Performed By: #### B MP #### [address] [address] Potassium [Moles/Vol] 3.3 mmol/L Low 3.5 - 5.3 [facility] Comment on above: Performed By: #### B MP #### [address] [address] Sodium [Moles/Vol] 139 mmol/L Normal 136 - 145 [facility] Comment on above: Performed By: #### B MP #### [address] [address] Urea nitrogen [Mass/Vol] 11 mg/dL Normal 6 - 23 [facility] Comment on above: Performed By: #### B MP #### [address] [address] CBCon 08-27-2021 Erythrocyte distribution width (RBC) [Ratio] 14.6 % High 11.5 - 14.5 [facility] Comment on above: Performed By: #### C BC #### [address] [address] Hematocrit (Bld) [Volume fraction] 39.1 % Normal 36.0 - 46.0 [facility] Comment on above: Performed By: #### C BC #### [address] [address] Hemoglobin (Bld) [Mass/Vol] 13.3 g/dL Normal 12.0 - 16.0 [facility] Comment on above: Performed By: #### C BC #### [address] [address] MCHC (RBC) [Mass/Vol] 34.0 g/dL Normal 32.0 - 36.0 [facility] Comment on above: Performed By: #### C BC #### [address] [address] MCV (RBC) [Entitic vol] 82 fL Normal 80 - 100 [facility] Comment on above: Performed By: #### C BC #### [address] [address] Platelets (Bld) [#/Vol] 348 10*3/uL Normal 150 - 450 [facility] Comment on above: Performed By: #### C BC #### [address] [address] RBC 4.78 x10E12/L Normal 4.00 - 5.20 [facility] Comment on above: Performed By: #### C BC #### [address] [place] [address] WBC (Bld) [#/Vol] 9.7 10*3/uL Normal 4.4 - 11.3 [facility] Comment on above: Performed By: #### C BC #### [facility] [address] [place] [address] HCG, Beta Quantitativeon HCG.beta subunit Qn m[IU]/mL MG-WILDLIFE MANAGEMENT PROFESSOR[facility] Work Phone: Comment on above: Low-level positive [...] HCG measurement is performed using the Bri Verix Access Immunoassay which detects intact HCG and free beta HCG subunit. This test is not indicated for use as a tumor marker. HCG testing is performed using a different test methodology at [facility] than other [facility]. Direct result comparison should only be made within the same method. REF VALUESNON FEMALE <5MALES <5 HCG,BETA-QUANTITATIVEon 07-31 HCG,BETA-QUANTITATIVE <2 Normal [facility] Comment on above: Result Comment: Low- level [...] performed using a different test methodology at [facility] than other [facility]. Direct result comparison should only be made within the same method. REF VALUES NON FEMALE <5 MALES <5 Performed By: #### H CGQU #### [facility] [address] [place] [address] Laboratory - Blood bankon ABO group Nom (Bld) O MG-WILDLIFE MANAGEMENT PROFESSOR[facility] [place] Work Phone: Blood group antibody screen Ql Negative [facility] [place] Work Phone: Rh immune globulin screen (Bld) [Interp] Negative [facility] [place] Work Phone: Comment on above: Review your Rh Negat willow female patient's potential need for Rh Immune Globulin (RhIg)administration. Laboratory - Chemistry and C hemistry - challengeon 08-27-2021 Anion gap [Moles/Vol] 16 mmol/L 10 - 20 [facility] Work Phone: Calcium [Mass/Vol] 9.5 mg/dL 8.6 - 10.3 [facility]G YN[facility] Work Phone: Chloride [Moles/Vol] 108 mmol/L above high threshold 98 - 107 [facility] [place] Work Phone: CO2 [Moles/Vol] 18 mmol/L below low threshold 21 - 32 [facility] [place] Work Phone: Creatinine [Mass/Vol] 0.85 mg/dL See Below [facility] [place] Work Phone: Comment on above: Reference Range: 0.5 0 - 1.05 Glucose [Mass/Vol] 72 mg/dL below low threshold 74 - 99 [facility] [place] Work Phone: Potassium [Moles/Vol] 3.3 mmol/L below low threshold 3.5 - 5.3 [facility] [place] Work Phone: [phone] Sodium [Moles/Vol] 139 mmol/L 136 - 145 [facility] [place] Work Phone: Urea nitrogen [Mass/Vol] 11 mg/dL 6 - 23 [facility] [place] Work Phone: Laboratory - Hematology and Cell countson 08-27-2021 Erythrocyte distribution width (RBC) [Ratio] 14.6 % above high threshold See Below [facility] Work Phone: Comment on above: Reference Range: 11. 5 - 14.5 Hematocrit (Bld) [Volume fraction] 39.1 % See Below [facility] Work Phone: Comment on above: Reference Range: 36. 0 - 46.0 Hemoglobin (Bld) [Mass/Vol] 13.3 g/dL See Below [facility] Work Phone: Comment on above: Reference Range: 12. 0 - 16.0 MCHC (RBC) [Mass/Vol] 34.0 g/dL See Below [facility] Work Phone: Comment on above: Reference Range: 32. 0 - 36.0 MCV (RBC) [Entitic vol] 82 fL 80 - 100 [facility] Work Phone: Platelets (Bld) [#/Vol] 348 10*3/uL 150 - 450 [facility] Work Phone: RBC (Bld) [#/Vol] 4.78 {x10E12/L} See Below [facility] Work Phone: Comment on above: Reference Range: 4.0 0 - 5.20 WBC (Bld) [#/Vol] 9.7 10*3/uL 4.4 - 11.3 [facility] Work Phone: No Panel Informationon 08-27 >60 >60 [facility] Work Phone: Comment on above: CALCULATIONS OF ABBIE MATED GFR ARE PERFORMED USING THE MDRD STUDY EQUATION FOR THE IDMS-TRACEABLE CREATININE METHODS. CLIN CHEM 2007;53:766-72 TYPE + SCREENon 08-27-2021 ABO TYPE O Normal [facility] Comment on above: Performed By: #### T +S #### [facility] [address] [place] [address] RH TYPE Negative Normal [facility] Comment on above: Result Comment: Revi ew your Rh Negative female patient's potential need for Rh Immune Globulin (RhIg)administration. Performed By: #### T +S #### [facility] [address] [place] [address] URINALYSIS WITH CULTURE IF I NDICATEDon 08-27-2021 Appearance (U) HAZY Normal CLEAR [facility] Comment on above: Performed By: #### U ARFX #### [facility] [address] [place] [address] Bilirubin Ql (U) Negative Normal NEGATIVE [facility] Comment on above: Performed By: #### U ARFX #### [facility] [address] [place] [address] Color (U) YELLOW Normal STRAW,YELL OW [facility] Comment on above: Performed By: #### U ARFX #### [facility] [address] [place] [address] Glucose Ql (U) Negative Normal NEGATIVE [facility] Comment on above: Performed By: #### U ARFX #### [facility] [address] [place] [address] Hemoglobin Ql (U) Negative Normal NEGATIVE [facility] Comment on above: Performed By: #### U ARFX #### [address] [address] Ketones Ql (U) Negative Normal NEGATIVE [facility] Comment on above: Performed By: #### U ARFX #### [facility] [address] [place] [address] Leukocyte esterase Test strip Ql (U) Negative Normal NEGATIVE [facility] Comment on above: Performed By: #### U ARFX #### [facility] [address] [place] [address] Nitrite Ql (U) Negative Normal NEGATIVE [facility] Comment on above: Performed By: #### U ARFX #### [address] [address] pH (U) 5.0 [pH] Normal 5.0 - 8.0 [facility] Comment on above: Performed By: #### U ARFX #### [address] [address] Protein Ql (U) Negative Normal NEGATIVE [facility] Comment on above: Performed By: #### U ARFX #### [address] [address] Specific gravity (U) [Rel density] 1.025 Normal 1.005 - 1.035 [facility] Comment on above: Performed By: #### U ARFX #### [address] [address] Urobilinogen (U) [Mass/Vol] 4.0 mg/dL High 0.0 - 1.9 [facility] Comment on above: Result Comment: SOME PIGMENTS AND MEDICATIONS MAY CAUSE A FALSE POSITIVE UROBILINOGEN Performed By: #### U ARFX #### [address] [address] Color (U) YELLOW See Below [facility] Work Phone: Comment on above: Reference Range: STR AW,YELLOW Glucose Ql (U) Negative NEGATIVE [facility] Work Phone: [phone] Ketones Ql (U) Negative NEGATIVE [facility] Work Phone: Leukocyte esterase Test strip Ql (U) Negative NEGATIVE [facility] Work Phone: pH (U) 5.0 [pH] 5.0 - 8.0 [facility] [place] Work Phone: [phone] Protein (U) [Mass/Vol] Negative NEGATIVE [facility] Work Phone: RBC (U) [#/Vol] Negative NEGATIVE [facility] [place] Work Phone: Specific gravity (U) [Rel density] 1.025 1 See Below [facility] [place] Work Phone: Comment on above: Reference Range: 1.0 05 - 1.035 URINALYSIS WITH CULTURE IF INDICATED Negative NEGATIVE [facility] Work Phone: URINALYSIS WITH CULTURE IF INDICATED 4.0 mg/dL above high threshold 0.0 - 1.9 [facility] Work Phone: Comment on above: SOME PIGMENTS AND ME DICATIONS MAY CAUSE AFALSE POSITIVE UROBILINOGEN URINALYSIS WITH CULTURE IF INDICATED HAZY CLEAR [facility] Work Phone: COMPUTER PROGRAMMER ANALYST - Office Visiton 06-29 COMPUTER PROGRAMMER ANALYST - Office Visit Diagnoses/Problems Assessed Female pelvic pain (625.9) (R10.2) Encounter for management and injection of depo-Provera (V25.49) (Z30.42) Ovarian mass, right (620.8) (N83.8) Orders Ultrasound Pelvis Transabdominal With Transvaginal; Status:Hold For - Scheduling; Requested for:[id number]; Radiologist to Determine Optimal Study : Y [...] of the pain. Was seen in the [place] emergency room without diagnosis. Ultrasound noted. From [...] in April 2021 and was normal. No doll eye setter needed. Adult Risk ScreeningThere are no spiritual/cultural [...] was seen in the emergency room at [facility] complaining of this abdominal pain. Repeat ultrasound [...] exam (V67.9) (more content not included)... Normal [employer] Tobacco Screening.on 021 Fall risk assessment a) No falls within the last year [facility] Work Phone: Last menstrual period start date none on depo [facility] Work Phone: Tobacco use status [facility] a) Yes [facility] Work Phone: COMPUTER PROGRAMMER ANALYST - Office Visiton 04-30 COMPUTER PROGRAMMER ANALYST - Office Visit Diagnoses/Problems Assessed Female pelvic [...] for this. Emergency room notes reviewed from [facility] along with ultrasound and labs. Lesion noted [...] from ER, last pap 05/06/21 wnl, no doll eye setter needed Adult Risk ScreeningThere are no spiritual/cultural [...] Was seen in the emergency room at [facility]. Ultrasound report reviewed along with labs. Patient [...] No falls within the last year [facility] Work Phone: Last menstrual period start date depo provera [facility] Work Phone: Tobacco use status [facility] a) Yes [facility] Work Phone: Tobacco Screening. Yes [facility] Work Phone: GC + CHLAMYDIA BY AMPLIFIED DETECTIONon 05-08-2021 CHLAMYDIA TRACH.,AMPLIFIED Negative Normal Negative [facility] Comment on above: Result Comment: The APTIMA Combo 2 assay is FDA-approved for Chlamydia trachomatis and Neisseria gonorrhoeae testing on female endocervical and vaginal swabs, ThinPrep liquid pap samples, male urine samples and urethral swabs. Performance characteristics for Chlamydia trachomatis and Neisseria gonorrhoeae testing on specific jcc-KIS-ehnxnrxj sample types (female urine samples) have been validated by [facility]. This laboratory is certified by CLIA to perform high complexity testing. Samples from all other sites are not validated for this method. Performed By: #### G [facility] #### [facility] [address] [place] [address] N.GONORRHEA,AMPLIFIED Negative Normal Negative [facility] Comment on above: Result Comment: The APTIMA Combo 2 assay is FDA-approved for Chlamydia trachomatis and Neisseria gonorrhoeae testing on female endocervical and vaginal swabs, ThinPrep liquid pap samples, male urine samples and urethral swabs. Performance characteristics for Chlamydia trachomatis and Neisseria gonorrhoeae testing on specific hol-SWE-kiusvshm sample types (female urine samples) have been validated by [facility]. This laboratory is certified by CLIA to perform high complexity testing. Samples from all other sites are not validated for this method. Performed By: #### [facility] #### [facility] [address] [place] [address] TRICHOMONAS,NUCLEIC ACID DET ECTIONon 05-08-2021 TRICHOMONAS VAGINALIS Negative Normal Negative [facility] Comment on above: Result Comment: The APTIMA Trichomonas vaginalis assay is FDA-approved for testing on female endocervical swabs, vaginal swabs, and ThinPrep liquid pap samples. Performance characteristics for Trichomonas vaginalis on specific jvx-FZD-jynmorvn sample types (female and male urine and male urethral swabs) have been validated by [facility]. This laboratory is certified by CLIA to perform high complexity testing. Samples from all other sites are not validated for this method. Performed By: #### T JL #### [facility] [address] [place] [address] GC + Chlamydia By Amplified Detectionon 05-07-2021 [...] trachomatis and Neisseria gonorrhoeae testing on specific evi-UCG-mlbikpat sample types (female urine samples) have been validated by [facility]. This laboratory is certified by CLIA to perform high complexity testing. Samples from all other sites are not validated for this method. N. gonorrhoeae rRNA VIVIAN+probe Ql (Unsp spec) Negative Negative [facility] Work Phone: Comment on above: SOURCE: Thin Prep-En docervical The APTIMA Combo 2 assay is FDA-approved for Chlamydia trachomatis and Neisseria gonorrhoeae testing on female endocervical and vaginal swabs, ThinPrep liquid pap samples, male urine samples and urethral swabs. Performance characteristics for Chlamydia trachomatis and Neisseria gonorrhoeae testing on specific bgd-PYC-ltcqppqt sample types (female urine samples) have been [...] Performance characteristics for Trichomonas vaginalis on specific hby-RRE-oydmkmep sample types (female and male urine and male urethral swabs) have been validated by [facility]. This laboratory is certified by CLIA to perform high complexity testing. Samples from all other sites are not validated for this method. TRICHOMONAS,NUCLEIC ACID DET ECTIONon 05-07-2021 Lab Specimen Source Thin Prep-Endocervical Normal [facility] Comment on above: Performed By: #### T JL #### [facility] [address] [place] [address] Performed By: #### G CCHA #### [facility] [address] [place] [address] Laboratory - Cytologyon Cytology report Cyto stain.thin prep Doc (Cvx/Vag) [facility] Work Phone: Cytology report Cyto stain.thin prep Doc (Cvx/Vag) Date of Procedure: 05/06/2021 Pathologist: [facility], Cytology Date Reported: 05/15/2021 Date Received: 05/06/2021 Submitting Physician: MANNY DANIEL CNP FINAL CYTOLOGICAL INTERPRETA -OB[facility]N-Sharri nunez Work Phone: COMPUTER PROGRAMMER ANALYST - Office Visiton COMPUTER PROGRAMMER ANALYST - Office Visit Diagnoses/Problems Assessed Encounter for annual routine gynecological examination (V72.31) (Z01.419) Cervical dysplasia (622.10) (N87.9) Orders PAP HAND BRIM IRONER, Cytology; Status:Hold For - Specimen/Data Collection; Requested [...] Murphy. Chief Complaint annual exam, last pap 7/8/20 ASCUS, no doll eye setter needed Adult Risk ScreeningThere are no spiritual/cultural [...] for manny (more content not included)... Normal [employer] Tobacco Screening.on 021 Fall risk assessment a) No falls within the last year [facility] Work Phone: Last menstrual period start date 21Apr2021 [facility] Work Phone: Tobacco use status [facility] a) Yes [facility] Work Phone: Tobacco Screening. Yes [facility] Work Phone: IO HCG, Urine Test on 04-21-2021 HCG ( test) Ql (U) Negative [facility] Work Phone: COMPUTER PROGRAMMER ANALYST - Office Visiton 03-30 COMPUTER PROGRAMMER ANALYST - Office Visit Patient Discussion /Summary Depo-Provera contraception. Follow-up in 3 months Chief Complaint patient here for Depo Provera injection, last pap 06/19/20 ASCUS, no doll eye setter needed Adult Risk ScreeningThere are no spiritual/cultural [...] MOUTH DEMARCUS (more content not included)... Normal [employer] Tobacco Screening.on 021 Fall risk assessment a) No falls within the last year [facility] Work Phone: Last menstrual period start date 21Apr2021 [facility] [place] Work Phone: Tobacco use status [facility] b) No [facility] Work Phone: VAGINITIS GRAM STAIN FOR BONNIE TERIAL VAGINOSIS + YEASTon 02-20-2021 CLUE CELLS ABSENT Normal [facility] Comment on above: Performed By: #### G SVAG #### [facility] [address] [place] [address] ALEKS SCORE 3 Normal [facility] Comment on above: Result Comment: Inte rpretation of the Aleks Score 0-3.....Normal vaginal microbiota 4-6.....Intermediate results 7-10....Bacterial vaginosis Performed By: #### G SVAG #### [facility] [address] [place] [address] Yeast LM Ql (Urine sed) ABSENT Normal [facility] Comment on above: Performed By: #### G SVAG #### [facility] [address] [place] [address] GC + CHLAMYDIA BY AMPLIFIED DETECTIONon 02-19-2021 CHLAMYDIA TRACH.,AMPLIFIED Negative Normal Negative [facility] Comment on above: Performed By: #### [facility] #### [facility] [address] [place] [address] N.GONORRHEA,AMPLIFIED Negative Normal Negative [facility] Comment on above: Performed By: #### [facility] #### [facility] [address] [place] [address] TRICHOMONAS,NUCLEIC ACID DET ECTIONon 02-19-2021 TRICHOMONAS VAGINALIS Negative Normal Negative [facility] Comment on above: Performed By: #### Isela JL #### [facility] [address] [place] [address] COMPUTER PROGRAMMER ANALYST - Office Visiton 01-28 COMPUTER PROGRAMMER ANALYST - Office Visit Diagnoses/Problems Assessed History of [...] and discharge, last pap 06/05/20 ASCUS, no doll eye setter needed Adult Risk ScreeningThere are no spiritual/cultural [...] ECTIONon 02-18-2021 Lab Specimen Source Genital Normal [facility] Comment on above: Performed By: #### T JL #### [facility] [address] [place] [id number] Performed By: #### G CCHA #### [facility] [address] [place] [address] XR Ankle - left AP and Later al and obliqueon 02-03-2021 IMPRESSION: Unremarkable. Pruner: KACI Transcribe Date/Time: Feb 03 2021 2:23P Dictated by : JEAN-CLAUDE NARANJO MD This examination was interpreted and the report reviewed and electronically signed by: JEAN-CLAUDE NARANJO MD on Feb 03 2021 2:25PM [facility] DIVISION OF RADIOLOGY * * *Final Report* [...] syndesmosis are preserved. DIVISION OF RADIOLOGY Provider, [facility] - 02/03/2021 * * *Final Report* * [...] and syndesmosis are preserved. IMPRESSION IMPRESSION: Unremarkable. Pruner: [facility] Transcribe Date/Time: Feb 03 2021 2:23P Dictated by : JEAN-CLAUDE NARANJO MD This examination was interpreted and the report reviewed and electronically signed by: JEAN-CLAUDE NARANJO MD on Feb 03 2021 2:25PM [facility] Radiology Study observation (narrative) [facility] XR Ankle - left AP and Later al and obliqueOrdered By: Cc Provider on 02-03-2021 [facility] XR Ankle - left AP and Later al and obliqueon 01-22-2021 IMPRESSION: No acute osseous abnormality identified. Pruner: PSYCHIATRIC Transcribe Date/Time: Jan 22 2021 4:49P Dictated by : BRIDGETTE SILVA MD This examination was interpreted and the report reviewed and electronically signed by: BRIDGETTE SILVA MD on Jan 22 2021 4:51PM [facility] DIVISION OF RADIOLOGY * * *Final Report* [...] had xrays of her Lt ankle at [facility]. Pt. states she can not feel her Lt ankle or foot. Pt. has not walked on lt foot since fall. TECHNIQUE: Images: XR ANKLE 3V AP/LAT/OBL LT Comparison: June 27, 2020. RESULT: Findings: No fracture or dislocation. Ankle mortise is congruent. No soft tissue abnormality identified. DIVISION OF RADIOLOGY Provider, [facility] - 01/22/2021 * * *Final Report* * [...] had xrays of her Lt ankle at [facility]. Pt. states she can not feel her Lt ankle or foot. Pt. has not walked on lt foot since fall. TECHNIQUE: Images: XR ANKLE 3V AP/LAT/OBL LT Comparison: June 27, 2020. RESULT: Findings: No fracture or dislocation. Ankle mortise is congruent. No soft tissue abnormality identified. IMPRESSION IMPRESSION: No acute osseous abnormality identified. Pruner: [facility] Transcribe Date/Time: Jan 22 2021 4:49P Dictated by : BRIDGETTE SILVA MD This examination was interpreted and the report reviewed and electronically signed by: BRIDGETTE SILVA MD on Jan 22 2021 4:51PM [facility] Radiology Study observation (narrative) [facility] XR Ankle - left AP and Later al and obliqueOrdered By: Ccf Provider on 01-22-2021 [facility] COMPUTER PROGRAMMER ANALYST - Office Visiton 10-30 COMPUTER PROGRAMMER ANALYST - Office Visit Diagnoses/Problems Assessed Irregular menses [...] menstrual cycles, last pap 06/05/20 ASCUS, no doll eye setter needed Adult Risk ScreeningThere are no spiritual/cultural [...] (more content not included)... Normal [facility] HCG,BETA-QUANTITATIVEon 09-30 HCG,BETA-QUANTITATIVE <3 Normal [facility] Comment on above: Result Comment: Low- level [...] performed using a different test methodology at [facility] than other [facility]. Direct result comparison should only be made within the same method. REF VALUES NON FEMALE <5 MALES <5 Performed By: #### H CGQU #### [facility] [address] [place] [address] COMPUTER PROGRAMMER ANALYST - Office Visiton 09-30 COMPUTER PROGRAMMER ANALYST - Office Visit Chief Complaint Pt here for confirmation last pap 06.05.2020 ASCUS No doll eye setter needed History of Present IllnessPatient also last normal menstrual period was in July.If she has had conflicting positive and negative test at home. Was seen in [facility] told at one time she had a [...] NEEDED. MAY REDUCE DOSAGE; Therapy: 11May2019 to (Renew:[id number]) Requested for: 04Dec2019; Last Rx:30Nov2019 Ordered Rx By: Maurice Kwon; Dispense: 30 Days ; #:120 Capsule; Refill: 0;For: Dyspepsia; BLUE = N; Verified Transmission to [facility]30 Omeprazole 40 MG Oral Capsule Delayed Release; TAKE 1 CAPSULE BY MOUTH DAILY; Therapy: 11May2019 to (Last Rx:30Nov2019) Requested for: 04Dec2019 Ordered Rx By: Maurice Kwon; Dispense: (more content not included)... Normal [facility] ANES POSTPROC EVALon 020 ANES POSTPROC EVAL HNO ID: [id number] Author: Roger Franco MD Service: ? Author Type: Anesthesiologist Type: Anesthesia Postprocedure Evaluation Filed: 07/22/2020 11:17 AM Note Text: POST ANESTHESIA EVALUATION NOTE : 1995 Procedure Summary Date: 07/22/20 Room / Location: [facility] A / [facility] Anesthesia Start: 0950 Anesthesia Stop: 103 Procedures: COLONOSCOPY WITH BIOPSY (N/A ) EGD [...] July 22, 2020 TIME: 11:17 AM CSN: [id number] [facility] ANES PRE-OPon 07-22-2020 ANES PRE-OP HNO ID: [id number] Author: Roger Franco MD Service: ? Author [...] July 22, 2020 TIME: 8:52 AM CSN: [id number] Normal [facility] HCG, Quantitative Blon 07-22 HCG, Quantitative Bl <0.6 Normal <5.0 [facility] Comment on above: Result Comment: NEGA TIVE Performed By: #### H CGQT #### [facility] Laboratory [address] [facility] [phone] HISTORY PHYSICALon 0 HISTORY PHYSICAL HNO ID: [id number] Author: Jeffrey Medina Service: General Surgery Author [...] - 4.00 k/uL 2.02 1.82 2.79 2.29 [place]% % 9.2 7.3 8.3 7.4 Abs [place] <0.87 k/uL 0.51 0.40 0.69 0.43 Eosin% [...] What she eats can make it worse. Burkinan or [place]ib[place]ian food can make it worse. She takes dicyclomine three times a day. It doesn't seem to help. ? The patient had a CT scan at [facility] on 01/14/20: FINDINGS: Evaluation of the [...] is located in the entire lower abdomen. HAND BRIM IRONER: Negative for abnormal vaginal bleeding, abnormal vaginal [...] minutes in length. ? Della Pulliam RN CHOKE REAM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 ?3:50 PM [facility] NURSING PROGon 07-22-2020 NURSING PROG HNO ID: [id number] Author: Javi CentenoRn) EDNA Gibson Service: Nursing [...] note was completed by: Javi Gibson RN [facility] NURSING PROG HNO ID: [id number] Author: Javi Gibson RN Service: Nursing Author Type: Registered Nurse Type: Nursing Progress Note Filed: 07/22/2020 11:27 AM Note Text: Nursing Progress Note Patient Name: Per Farmer Patient Location: [facility] End[facility] Endo Daily Note: Pt tup to restroom, voiding without diff This note was completed by: Javi Gibson RN [facility] PT EDon 07-22-2020 PT ED HNO ID: [id number] Author: Javi CentenoRn) EDNA Gibson Service: Nursing Author Type: Registered Nurse Type: Patient Education Filed: 07/22/2020 11:28 AM Note Text: PATIENT EDUCATION TOPIC: PROCEDURE / SURGERY: Post Procedure Teaching: PATIENT NAME: Per Farmer PATIENT LOCATION: [facility] End[facility] Endo READINESS TO LEARN COGNITIVE ABILITY: [...] None Electronically Signed By: Javi Gibson RN [facility] PT ED HNO ID: [id number] Author: Hugo Chung RN Service: Nursing Author Type: Registered Nurse [...] Signed By: Hugo Chung RN In Department: [facility] ENDOSCOPY [facility] SURGICAL PATHOLOGYon 020 SURGICAL PATHOLOGY Specimen originated from [facility] Specimen #: [id number] Submitting Physician: Jeffrey Medina M.D. FINAL DIAGNOSIS [...] Colonic mucosa with no significant pathologic change. [facility] 07/23/2020 Jocelyn Ayala M.D. (Electronic Signature) [...] in one cassette. Gross examination performed at [facility], [address] [place], [place] [id number] 07/22/2020 5:07:22 PM Date of Report: 07/23/2020 Date of Procedure: 07/22/2020 Date of Receipt: 07/22/2020 Submitted by: Jeffrey Medina M.D. Location: [facility] Diagnostic [place] [address]. CLIA Number: [id number] [facility] HOSPon 06-07-2020 HOSP Patient:Hubert Farmer MRN: Height:5' [...] for the following basenames: K,HCT [facility] Lawanda Wilkes APRN.BAKARI 07/19/2020 8:07 AM Signed Please fax order for albuterol to [facility]. Is in my out box. Thanks, Lawanda Wilkes, BREANA.BAKARI Ward LPN, JAMES 07/19/2020 9:22 AM Signed [facility]. Progress Notes ([facility]): Aimee Womack Ma 07/18/2020 5:21 PM Signed RX INSTRUCTIONS: Patient aware RX will be sent to pharmacy. No need to notify patient. Last OV: 05/30/20-Virtual Guerline Last refill: 03/19/20 With 50 and 3 refills Last oarrs report completed: N/A PLEASE REVIEW ON [facility] Follow up: No F/U appt scheduled at this time. Aimee Womack Ma [facility] IO HCG, Urine Test on 06-05-2020 HCG [...] This specimen has been analyzed by the [employer] Pim[employer] Imaging System ([employer]an automated imaging and review system, which assists the laboratory inevaluating cells on ThinPrep Pap tests. Following automated imaging, selectedfields from every slide were reviewed by a laundry room attendant and/or pathologist.Electronically Signed Out By AGGIE MOLINA [...] (U) Negative [facility]-OB[facility]N-Be dford [facility] Work Phone: JSon 09-19-2018 [facility] REPORT Normal [facility] DATE OF SERVICE: 09/19/2018HISTORY: A 23-year-old female with head pressure, cheek pain. Says this has beengoing on since September 01, 2018.PAST MEDICAL HISTORY: She has a history of epilepsy and apparently was just seen forthat and they put her on a monitor. This was at [facility]. She says she isdeaf, ADHD, [...] go downto the ER for that. MARTA Isabel/[id number]: 09/19/2018 12:16DT: 09/20/2018 12:26SSI File#: [id number] #: [id number]/Reviewed by [facility] PATIENT NAME: PER FARMER20 Mica Ramires MEDICAL REC #: [id number], [place] [address] STATCARE REPORT STATCARE KQYSLWQNI67/27/18 0904 LEAH *[facility] PATIENT NAME: PER FARMER [facility] Dr. Ramires MEDICAL REC #: [id number], [place] [address] STATCARE REPORT STATCARE PHYSICIAN [facility] CT HEAD/BRAIN W/O CONon 04-29 CT [...] cellsare clear.IMPRESSION:No acute intracranial abnormality. Dictated by Honeycomb Blanket Maker: Dayana Farah and Signed by: Jeronimo Tate MD---- Electronic Signature on File ----Signed By: Jeronimo Tate [email or web address]: 05/12/2018 1:03 AMSigned: 05/12/2018 7:37 AM Reported By: JERONIMO TATE M.D. Signed By: JERONIMO TATE M.D. [facility] ED DOCon 05-12-2018 ED DOC PHYSICIA N ASSESSMENT ==RECORDS: FlexChartDataEvent Time: 05/11/2018 23:55Status: [facility] [[id number]]Att ending [id number] / F / 1995Chart (V2b)Chart created at 05/11/2018 23:46 by Justin SilvermanChart closed at 05/12/2018 01:20Entry in Emergency Department at 05/11/2018 20:58Patient Name: Per Farmer Record Number: [id number]: 05/11/2018 23:46Entered Department at: 05/11/2018 20:58 Patient [...] over the area where she bumped her [facility] PATIENT NAME: PER FARMER [id number] [facility] [address] Ramires MEDICAL REC #: [id number], [place] [address] DEPARTMENT CHART EMERGENCY DEPARTMENT PHYSICIANhead. There is no loss of consciousness and it happened 10hours ago. She vomited once at dinnertime.Shes not sure shes .Denies numb or Jimmy to arms or legs and denies syncopeblurred vision or double vision. No neck pain.No severe swelling of the head where she had. She did notfall from a height she was S he trying [facility] when she hit her headshe has just moved here from [place] recently. She is herewith her grandfatherHPI Elements: [...] RN Note. SingleFamily History: Reviewed RN Note [facility] PATIENT NAME: PER FARMER M13Armen [facility] Dr[facility] Ramires MEDICAL REC #: [id number], [place] [address] DEPARTMENT CHART EMERGENCY DEPARTMENT PHYSICIANPhysical Examination: General: [...] mm axial tomographic images were acquiredthrough the [facility] PATIENT NAME: PER FARMER [facility] Dr[facility] Ramires MEDICAL REC #: [id number], [place] [address] DEPARTMENT CHART EMERGENCY DEPARTMENT PHYSICIANposterior fossa followed [...] clear.IMPRESSION:No CT evidence of acute intracranial abnormality. CLIENT SUPPORT PROFESSIONAL INTERPRETATION S DRAFT STATUS Dictated by Honeycomb Blanket Maker: Dayana Farah and Signed by: Radiologist Awaiting ReviewReported By: RESIDENT READ, AWAITING REVIEWMedical Decision MakingPatient has chronic headaches and allegedly has not hadfurther workup. Its been 2 years and theyrethis often, CT should be at least performed once to ensureno other lesions are noted. With herheadaches, she will have a CT scan. test is [facility] PATIENT NAME: PER FARMER [facility] Ramires MEDICAL REC #: [id number], [place] [address] DEPARTMENT CHART EMERGENCY DEPARTMENT PHYSICIANpending. Does not [...] must see your follow-up doctor for a [facility] PATIENT NAME: PER FARMER [id number] [facility] [address] Ramires MEDICAL REC #: [id number], [place] [address] DEPARTMENT CHART EMERGENCY DEPARTMENT PHYSICIANrecheck within a [...] get your prescriptions filled.EKG and Radiology Results:A grape crusher or radiologist will review any EKG orradiology [...] hours. During this 24 hours, the patient [facility] PATIENT NAME: PER FARMER [id number] [facility] [address] Ramires MEDICAL REC #: [id number], [place] [address] DEPARTMENT CHART EMERGENCY DEPARTMENT PHYSICIANmust be observed [...] DOCTOR GIVES YOU OTHER INSTRUCTIONS, YOU MUST [facility] PATIENT NAME: PER FARMER [facility] Ramires MEDICAL REC #: [id number], [place] [address] DEPARTMENT CHART EMERGENCY DEPARTMENT PHYSICIANSEE YOUR FOLLOW-UP DOCTOR WITHIN 2 TO 3 DAYSFOR RECHECKYOU MUST RETURN TO THE ER RIGHT AWAY FOR ANY OF THEFOLLOWING:Increasing or changing painNew orincreasing vision problemsNew or increasing problems withbalanceNew or increasing confusion, dizzinessor weaknessNew or increasing vomitingNew or increasingfever or chillsNew or increasing neck stiffnessNewor increasing numbness or weakness in the arms or legsSt. [facility], Address: [address] [place] [address], Please call the above number to schedule a follow-upappointment.[facility]), Address: [address] [place] [phone], , fax: Please call the above number to schedule a follow-upappointment.Hugo Gillis DO (Neurology), , fax: Please call the above number to schedule a follow-upappointment.next weekMEDICATIONSWe have given you these prescriptions that you must filland start taking:NoneCOMMENTS:Patient Satisfaction:Within the first few days after your visit, you will [facility] PATIENT NAME: [facility] FARMER [facility] [facility] [address] MEDICAL REC #: [id number], [place] [address] DEPARTMENT CHART EMERGENCY DEPARTMENT PHYSICIANreceive an email [...] below indicates consent for Case Managementto contact communityhealthcare providers in [facility] to meet your ongoing healthcare needs. This willallow forcontinuity of care once you leave theMulticare Health Department. This exchange of informationwillinclude, but not be limited to, disclosure of yourpatient information and possible release ofrecords. ==DEMOGRAPHICS ======Emergisoft Patient: PER FARMERSex: FDOB: 1995Age: 22 yrAccount No: [id number]: [id number] Date: :05/11/2018Address: [address] NEAddress: [place] [address] QIM ISTRATION =ED Number: [id number]: Marital Status: SFinancial Class: CAIDHMO T RIAGE [facility] PATIENT NAME: PER FARMER [id number] [facility] MEDICAL REC #: [id number], [place] [address] DEPARTMENT CHART EMERGENCY DEPARTMENT PHYSICIANPriority: 3 - UrgentComplaint: HeadacheStated Complaint: Patient c/o headache that begantoday. Patient denies any injuriesArrival Date: 05/11/2018 20:58Triage Date: 05/11/2018 20:59Mode of Arrival: *Privately Owned VehicleTransfer From: * HomeW: NLanguage: EnglishTransport: Ambulatory/Walk In BED=== C26 In: 05/11/2018 23:00:48 05/11/201823:00:48 JLRC26 (Removed From) Out: 05/12/2018 02:11:10005/12/2018 02:11:10 MJHA PROV IDERS MD Jutsin Silverman Provider Contact: 05/11/201823:17:52 BAMEnd:RNBERENICEU JESSE MARTINEZ Provider Contact:05/11/2018 23:18:37 MJHAEnd: TRIAGE HISTORY A LLERGIESAllergic To: Lidocaine Hydrochloride - Gtozyarw35/13/2018 21:04 BMGACURRENT MEDSName: SERTRALINE PO 05/11/2018 21:04 BMGAName: CLONIDINE PO 05/11/2018 21:[address] [facility] PATIENT NAME: PER FARMER [id number] [facility] [address] Ramires MEDICAL REC #: [id number], [place] [address] DEPARTMENT CHART EMERGENCY DEPARTMENT PHYSICIANName: PER PATIENT 05/11/18 05/11/2018 21:04 BMGAILLNESSIllness: Seizures 05/11/2018 21:04 BMGAIllness: Depression 05/11/2018 21:04 BMGAIllness: Anxiety 05/11/2018 21:04 BMGAPAST SURGERY HISTSurgery: None 05/11/2018 21:04 BMGAPAST SOCIAL HISTSocial History: Communicates without trgvjgbice76/13/2018 21:04 BMGASocial History: Lives with family or [...] BMGA NURS ING ASSESSMENT ASSESS MENT NOTES [facility] PATIENT NAME: PER FARMER [id number] [facility] [address] Ramires MEDICAL REC #: [id number], [place] [address] DEPARTMENT CHART EMERGENCY DEPARTMENT PHYSICIAN =05/12/2018 02:03 PATIENT A/O X4, SKIN WARM AND DRY WITHGOOD TURGOR, RESP EASY, HIT HEAD ON PLAYGROUND, NO LOC05/12/2018 02:05 MJHA MONE TMENT 02:06 Primary DOC Guide - A. Patient Cerncou3805/12/2018 02:07 MJHAPrimary History Source PatientAvian Exposure - [...] - E. Family ViolenceAssessment 05/12/2018 02:[address] [facility] PATIENT NAME: PER FARMER [id number] [facility] [address] Ramires MEDICAL REC #: [id number], [place] [address] DEPARTMENT CHART EMERGENCY DEPARTMENT PHYSICIANIndicators of Neglect [...] now: NoFamily Violence Clinical Observation All Negative Hidnrc6805/12/2018 02:10 Discharge - Ambulated with steady gaithome 05/12/2018 02:10 MJHA05/12/2018 02:10 Discharge - Printed dischargeinstructions given reviewed with intrepreter 05/12/201802:10 [facility]05/12/2018 02:10 Discharge - Printed dischargeinstructions given to [...] Motor:6 GCS Total: 15 05/11/2018 21:[address] [facility] PATIENT NAME: PER FARMER M1320 [facility] MEDICAL REC #: [id number], [place] [address] DEPARTMENT CHART EMERGENCY DEPARTMENT PHYSICIANVS-HT/WT Time: 05/11/2018 [...] think you might be ?Answer: PENDING * [facility] PATIENT NAME: PER FARMER M13[address] [facility] [address] Ramires MEDICAL REC #: [id number], [place] [address] DEPARTMENT CHART EMERGENCY DEPARTMENT PHYSICIANDISCHARGE Diagnosis: headache, head contusion left 05/12/201801:21Disposition: Time: 05/12/2018 01:20Discharge Time: 05/12/2018 02:11Type: DischargeCondition: Stable for admission/discharge/transfer after emergency evaluation/treatment Category: TraumaReferral: 05/12/2018 01:21Admit Physician: . Other PRE SCRIPTIONS CHARGE S SIGNATURE====== Justin GAMAU ADIS MERAZ RN BMGA [facility] PATIENT NAME: PER FARMER [id number] [facility] [address] Ramires MEDICAL REC #: [id number], [place] [address] DEPARTMENT CHART EMERGENCY DEPARTMENT PHYSICIAN Normal [facility] ED Documentation This is a preliminar y report only, as the practitioner review and authentication has not occurred. Normal [facility] URINE PREGNANCYon 05-12-2018 UR HCG QUAL Negative Normal NEGATIVE [facility] Comment on above: Order Comment: Ailyn s: M Performed By: #### L [id number] ####[facility] [address] [place], [place] [address]Eo# [phone] UR SPEC GRAV 1.026 Normal 1.005-1.03 0 [facility] Comment on above: Order Comment: Ailyn s: M Performed By: #### L 600.29329 ####[place] [address] [place], [place] [address]Tu# [phone] DOSETRACKon 05-10-2018 DOSETRACK Normal [facility] DOSETRACK Test Dose report.Ronni e: ЕЛЕНА ALBARADO MAccession Number: [id number] Type: CTExam: HEADMax CTDIVol: 54.39 mGyDLP: 606.32 mGy*mmHQ8BH HEAD/BRAIN W/O W[id number] 0543498.19013241393475.83843 2320303.95129073668105606.1 Routine UqkpQaxm628.3052242.69842305 00.84804931673570.5905161727 30.25585880123715301.1 Routine QkvlMijr037.4565175.73116511 000.87983807568249.425513702 0430.54783020381576468.1 Routine UjemSzwn26.4743293718883.980 667848049.32025.651331.[id number] [facility] PATIENT NAME: PER FARMER [facility] Ramires MEDICAL REC #: [id number], [place] [address] DATE:DISCHARGE DATE: 05/10/18[facility] ATTENDING PHY: Roger [id number] [id number] 1.1 Routine DmmpBygq60.1901379831702.340 144261047.15542[address]5021429.[address] [facility] PATIENT NAME: PER FARMER [facility] Ramires MEDICAL REC #: [id number], [place] [address] DATE:DISCHARGE DATE: 05/10/18[facility] ATTENDING PHY: Roger Dunlap Normal [facility] [place] HAND COMP MIN 3 VWS LTon HAND COMP MIN 3 VWS LT HAND COMP MIN 3 VWS LTOrdering Physician: Taurus Gomez MD05/10/2018 2:23 PMLEFT HAND THREE VIEWSClinical Statement: PainComparison: NoneFINDINGS: Routine views show no fracture, dislocation, jointabnormality or soft tissue calcifications.IMPRESSION:No rmal examination. ---- Electronic Signature on File ----Signed By: Joaquin Regalado MD [email or web address]: 05/10/2018 3:09 PMSigned: 05/10/2018 3:10 PM Reported By: JOAQUIN REGALADO M.D. Signed By: JOAQUIN REGALADO M.D. [facility] 05-10-2018 [place] [facility] REPORT [facility] DATE OF SERVICE: 10/2018A 22-year-old female comes in with complaints of left hand pain at the base of her2nd, 3rd and 4th metacarpals. She states she works at [employer] and caught her handbetween 2 shelving units [...] later. Referral was given to establish care withprimary care as she does not have one and given clearance for work. Patient agreedwith treatment plan and course. No further questions or concerns.CLINICAL IMPRESSION: Acute left hand contusion.Roger Dunlap PA-C dictating for Ar renea Gomez, TERRI/[id number]: 05/10/2018 15:07DT: 05/10/2018 15:45SSI File#: [id number] #: [id number] [facility] PATIENT NAME: PER FARMER Mica Ramires MEDICAL REC #: [id number], [place] [address] [place] STAT[facility] REPORT STATCARE PHYSICIANDisclaimer - This document may contain phonetic, minor grammatical errors, or errorsdue to voice quality.Verified/Reviewed by06/07/18 Jeff VILLAGOMEZ *[facility] PATIENT NAME: PER FARMER [facility] Ramires MEDICAL REC #: [id number], [place] [address] AGES [place] STATCARE REPORT STATCARE PHYSICIAN Normal [facility] No Panel Information SARS-CoV-2 & FLU Antigen (Rapid) [facility] Work Phone: Vital Signs Date Time Vital Sign Value Performing Clinician Facility 09-21-2025 05:46-0400 Body temperature 98 [degF] Dr. Sophie Avalos MD Work Phone: 3(403)634-727809 [place] [address] 09-21-2025 05:46-0400 Diastolic blood pressure 79 mm[Hg] Dr. Sophie Avalos MD Work Phone: 1(971)416-249109 [place] [address] 09-21-2025 05:46-0400 Heart rate 68 /min Dr. Sophie Avalos MD Work Phone: 5(714)611-371809 [place] [address] 09-21-2025 05:46-0400 Respiratory rate 18 /min Dr. Sophie Avalos MD Work Phone: 9(940)342-817509 [place] [address] 09-21-2025 05:46-0400 SaO2% (BldA) [Mass fraction] 99 % Dr. Sophie Avalos MD Work Phone: 8(561)538-719609 [place] [address] 09-21-2025 05:46-0400 Systolic blood pressure 108 mm[Hg] Dr. Sophie Avalos MD Work Phone: 0(168)125-279009 [place] [address] 09-21-2025 04:45-0400 Body height 170.[address] Sophie Avalos MD Work Phone: 1(023)529-988909 [place] [address] 09-21-2025 04:45-0400 Body mass index (BMI) [Ratio] 29.2 kg/m2 Dr. Sophie Avalos MD Work Phone: 0(232)704-687309 [place] [address] 09-21-2025 04:45-0400 Body weight 84.[address] Sophie Avalos MD Work Phone: 9(344)612-720209 [place] [address] 09-10-2025 04:23-0400 Body temperature 98 [degF] Dr. Sophie Avalos MD Work Phone: 5(338)750-740209 [place] [address] 09-10-2025 04:23-0400 Diastolic blood pressure 61 mm[Hg] Dr. Sophie Avalos MD Work Phone: 3(374)950-997109 [place] [address] 09-10-2025 04:23-0400 Heart rate 71 /min Dr. Sophie Avalos MD Work Phone: 1(733)427-893309 [place] [address] 09-10-2025 04:23-0400 Respiratory rate 14 /min Dr. Sophie Avalos MD Work Phone: 2(363)944-606309 [place] [address] 09-10-2025 04:23-0400 SaO2% (BldA) [Mass fraction] 100 % Dr. Sophie Avalos MD Work Phone: 1(791)073-347509 [place] [address] 09-10-2025 04:23-0400 Systolic blood pressure 104 mm[Hg] Dr. Sophie Avalos MD Work Phone: 3(643)723-887409 [place] [address] 09-10-2025 01:51-0400 Inhaled oxygen flow rate 2 L/min Dr. Sophie Avalos MD Work Phone: 8(556)168-476809 [place] [address] 09-10-2025 00:47-0400 Body mass index (BMI) [Ratio] 27.6 kg/m2 Dr. Sophie Avalos MD Work Phone: 2(912)390-320109 [place] [address] 09-10-2025 00:47-0400 Body weight 80.[address] Sophie Avalos MD Work Phone: 3(231)759-306509 [place] [address] 09-05-2025 00:05-0400 Body temperature 97.8 [degF] Dr. Sophie Avalos MD Work Phone: 7(225)280-518609 [place] [address] 09-05-2025 00:05-0400 Diastolic blood pressure 61 mm[Hg] Dr. Sophie Avalos MD Work Phone: 5(424)395-516609 [place] [address] 09-05-2025 00:05-0400 Heart rate 73 /min Dr. Sophie Avalos MD Work Phone: 2(723)365-328509 [place] [address] 09-05-2025 00:05-0400 Respiratory rate 18 /min Dr. Sophie Avalos MD Work Phone: 4(714)707-437009 [place] [address] 09-05-2025 00:05-0400 SaO2% (BldA) [Mass fraction] 97 % Dr. Sophie Avalos MD Work Phone: 8(769)421-940309 [place] [address] 09-05-2025 00:05-0400 Systolic blood pressure 95 mm[Hg] Dr. Sophie Avalos MD Work Phone: [facility] 09-04-2025 21:26-0400 Body height 170.[address] Sophie Avalos MD Work Phone: [facility] 09-04-2025 21:26-0400 Body mass index (BMI) [Ratio] 31.7 kg/m2 Dr. Sophie Avalos MD Work Phone: [facility] 09-04-2025 21:26-0400 Body weight 91.[address] Sophie Avalos MD Work Phone: [facility] 08-14-2025 08:27-0400 Body mass index (BMI) [Ratio] 27.44 kg/m2 Felipa Suppan CHOKE REAM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 Work Phone: [facility] 08-14-2025 08:27-0400 Body weight 77.11 kg Felipa Suppan CHOKE REAM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 Work Phone: [facility] 08-14-2025 08:27-0400 Diastolic blood pressure 64 mm[Hg] Felipa Suppan CHOKE REAM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 Work Phone: [facility] 08-14-2025 08:27-0400 Heart rate 68 /min Felipa Suppan CHOKE REAM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 Work Phone: [facility] 08-14-2025 08:27-0400 Respiratory rate 16 /min Felipa Suppan CHOKE REAM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 Work Phone: [facility] 08-14-2025 08:27-0400 SaO2% (BldA) [Mass fraction] 95 % Felipa Suppan CHOKE REAM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 Work Phone: [facility] 08-14-2025 08:27-0400 Systolic blood pressure 122 mm[Hg] Felipa Suppan CHOKE REAM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 Work Phone: [facility] 08-10-2025 14:09-0400 Body temperature 97.7 [degF] Dr. Sophie Avalos MD Work Phone: [facility] 08-10-2025 14:09-0400 Diastolic blood pressure 77 mm[Hg] Dr. Sophie Avalos MD Work Phone: [facility] 08-10-2025 14:09-0400 Heart rate 69 /min Dr. Sophie Avalos MD Work Phone: [facility] 08-10-2025 14:09-0400 Respiratory rate 16 /min Dr. Sophie Avalos MD Work Phone: [facility] 08-10-2025 14:09-0400 SaO2% (BldA) [Mass fraction] 98 % Dr. Sophie Avalos MD Work Phone: [facility] 08-10-2025 14:090400 Systolic blood pressure 112 mm[Hg] Dr. Sophie Avalos MD Work Phone: [facility] 08-10-2025 12:33-0400 Body height 170.[address] Sophie Avalos MD Work Phone: 1(223)141-094775 [place] [address] 08-10-2025 12:33-0400 Body mass index (BMI) [Ratio] 26.9 kg/m2 Dr. Sophie Avalos MD Work Phone: [facility] 08-10-2025 12:33-0400 Body weight 78.[address] Sophie Avalos MD Work Phone: [facility] 08-08-2025 09:13-0400 Body mass index (BMI) [Ratio] 29.04 kg/m2 Silvia Christensen CHOKE REAM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 Work Phone: [facility] 08-08-2025 09:13-0400 Body temperature 97 [degF] Silvia Christensen CHOKE REAM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 Work Phone: [facility] 08-08-2025 09:13-0400 Body weight 81.6 kg Silvia Christensen CHOKE REAM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 Work Phone: [facility] 08-08-2025 09:13-0400 Diastolic blood pressure 64 mm[Hg] Silvia Christensen CHOKE REAM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 Work Phone: [facility] 08-08-2025 09:13-0400 Heart rate 96 /min Silvia Christensen CHOKE REAM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 Work Phone: [facility] 08-08-2025 09:13-0400 Respiratory rate 19 /min Silvia Christensen CHOKE REAM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 Work Phone: [facility] 08-08-2025 09:13-0400 SaO2% (BldA) [Mass fraction] 95 % Silvia Christensen CHOKE REAM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 Work Phone: [facility] 08-08-2025 09:13-0400 Systolic blood pressure 98 mm[Hg] Silvia Christensen CHOKE REAM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 Work Phone: [facility] 07-31-2025 13:21-0400 Body mass index (BMI) [Ratio] 28.25 kg/m2 Di Arreola CHOKE REAM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 Work Phone: [facility] 07-31-2025 13:21-0400 Body weight 79.38 kg Di Arreola CHOKE REAM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 Work Phone: [facility] 07-31-2025 13:21-0400 Diastolic blood pressure 72 mm[Hg] Di Arreola CHOKE REAM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 Work Phone: [facility] 07-31-2025 13:21-0400 Heart rate 77 /min Di Arreola CHOKE REAM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 Work Phone: [facility] 07-31-2025 13:21-0400 SaO2% (BldA) [Mass fraction] 97 % Di Arreola CHOKE REAM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 Work Phone: [facility] 07-31-2025 13:21-0400 Systolic blood pressure 112 mm[Hg] Di Haagen CHOKE REAM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 Work Phone: [facility] 06-25-2025 13:01-0400 Body mass index (BMI) [Ratio] 28.5 kg/m2 Di Arreola CHOKE REAM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 Work Phone: [facility] 06-25-2025 13:01-0400 Body weight 80.11 kg Di Haagen CHOKE REAM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 Work Phone: [facility] 06-25-2025 13:01-0400 Diastolic blood pressure 62 mm[Hg] Di Haagen CHOKE REAM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 Work Phone: [facility] 06-25-2025 13:01-0400 Heart rate 73 /min Di Haagen CHOKE REAM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 Work Phone: [facility] 06-25-2025 13:01-0400 Respiratory rate 12 /min Di Haagen CHOKE REAM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 Work Phone: [facility] 06-25-2025 13:01-0400 SaO2% (BldA) [Mass fraction] 98 % Di Haagen CHOKE REAM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 Work Phone: [facility] 06-25-2025 13:01-0400 Systolic blood pressure 118 mm[Hg] Di Haagen CHOKE REAM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 Work Phone: [facility] 05-01-2025 10:33-0400 Diastolic blood pressure 72 mm[Hg] Di Haagen CHOKE REAM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 Work Phone: [facility] 05-01-2025 10:33-0400 Heart rate 69 /min Di Haagen CHOKE REAM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 Work Phone: [facility] 05-01-2025 10:33-0400 Respiratory rate 16 /min Di Haagen CHOKE REAM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 Work Phone: [facility] 05-01-2025 10:33-0400 SaO2% (BldA) [Mass fraction] 99 % Di Haagen CHOKE REAM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 Work Phone: [facility] 05-01-2025 10:33-0400 Systolic blood pressure 110 mm[Hg] Di Haagen CHOKE REAM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 Work Phone: [facility] 02-06-2023 23:08-0500 Diastolic blood pressure 71 mm[Hg] [facility] 02-06-2023 23:08-0500 Heart rate 83 /min [facility] 02-06-2023 23:08-0500 Respiratory rate 16 /min [facility] 02-06-2023 23:08-0500 SaO2% (BldA) [Mass fraction] 98 % [facility] 02-06-2023 23:08-0500 Systolic blood pressure 112 mm[Hg] [facility] 02-06-2023 21:07-0500 Body height 167.64 cm [facility] 02-06-2023 21:07-0500 Body mass index (BMI) [Ratio] 35 kg/m2 [facility] 02-06-2023 21:07-0500 Body temperature 97.1 [degF] [facility] 02-06-2023 21:07-0500 Body weight 98.4 kg [facility] 01-19-2023 11:19-0500 Body height 167.6 cm Cecilia Craig PA-C Work Phone: [facility] 01-19-2023 11:19-0500 Body weight 94.8 kg Cecilia Craig PA-C Work Phone: [facility] 01-19-2023 11:19-0500 Diastolic blood pressure 81 mm[Hg] Cecilia Craig PA-C Work Phone: [facility] 01-19-2023 11:19-0500 Heart rate 81 /min Cecilia Craig PA-C Work Phone: [facility] 01-19-2023 11:19-0500 SaO2% (BldA) [Mass fraction] 95 % Cecilia Craig PA-C Work Phone: [facility] 01-19-2023 11:19-0500 Systolic blood pressure 121 mm[Hg] Cecilia Craig PA-C Work Phone: [facility] 01-09-2023 14:00-0500 SaO2% (BldA) [Mass fraction] 99 % [facility] 01-09-2023 00:41-0500 Body temperature 98.2 [degF] [facility] 01-09-2023 00:41-0500 Diastolic blood pressure 74 mm[Hg] [facility] 01-09-2023 00:41-0500 Heart rate 74 /min [facility] 01-09-2023 00:41-0500 Respiratory rate 15 /min [facility] 01-09-2023 00:41-0500 Systolic blood pressure 132 mm[Hg] [facility] 01-08-2023 23:43-0500 Inhaled oxygen flow rate 2 L/min [facility] 01-08-2023 22:34-0500 Body height 152.4 cm [facility] 01-08-2023 22:34-0500 Body mass index (BMI) [Ratio] 41.5 kg/m2 [facility] 01-08-2023 22:34-0500 Body weight 96.4 kg [facility] 12-28-2022 10:31-0500 Body weight 94.8 kg Nurse Wstr Work Phone: [facility] 12-28-2022 10:31-0500 Diastolic blood pressure 78 mm[Hg] Nurse Wstr Work Phone: [facility] 12-28-2022 10:31-0500 Systolic blood pressure 112 mm[Hg] Nurse Wstr Work Phone: [facility] 12-24-2022 11:41-0500 Body height 167.[address] 12-24-2022 11:41-0500 Body temperature 98.4 [degF] [address] 12-24-2022 11:41-0500 Body weight 93.[address] 12-24-2022 11:41-0500 Diastolic blood pressure 79 mm[Hg] [address] 12-24-2022 11:41-0500 Heart rate 76 /min [address] 12-24-2022 11:41-0500 Respiratory rate 16 /min [address] 12-24-2022 11:41-0500 SaO2% (BldA) [Mass fraction] 97 % [address] 12-24-2022 11:41-0500 Systolic blood pressure 117 mm[Hg] [address] 11-10-2022 10:13-0500 Body height 170.2 cm Juaquin Walsh MD Work Phone: [facility] 11-10-2022 10:13-0500 Body weight 93.89 kg Juaquin Walsh MD Work Phone: [facility] 11-10-2022 10:13-0500 Diastolic blood pressure 79 mm[Hg] Juaquin Walsh MD Work Phone: [facility] 11-10-2022 10:13-0500 Heart rate 88 /min Juaquin Walsh MD Work Phone: [facility] 11-10-2022 10:13-0500 SaO2% (BldA) [Mass fraction] 99 % Juaquin Walsh MD Work Phone: [facility] 11-10-2022 10:13-0500 Systolic blood pressure 114 mm[Hg] Juaquin Walsh MD Work Phone: [facility] 10-28-2022 13:25-0500 Body temperature 97 [degF] Sweetie Praisler-Wood CHOKE REAM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 Work Phone: [facility] 10-28-2022 13:25-0500 Body weight 93.89 kg Sweetie Praisler-Wood CHOKE REAM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 Work Phone: [facility] 10-28-2022 13:25-0500 Diastolic blood pressure 68 mm[Hg] Sweetie Praisler-Wood CHOKE REAM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 Work Phone: [facility] 10-28-2022 13:25-0500 Heart rate 94 /min Sweetie Praisler-Wood CHOKE REAM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 Work Phone: [facility] 10-28-2022 13:25-0500 Respiratory rate 16 /min Sweetie Praisler-Wood CHOKE REAM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 Work Phone: [facility] 10-28-2022 13:25-0500 SaO2% (BldA) [Mass fraction] 97 % Sweetie Praisler-Wood CHOKE REAM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 Work Phone: [facility] 10-28-2022 13:25-0500 Systolic blood pressure 110 mm[Hg] Sweetie Praisler-Wood CHOKE REAM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 Work Phone: [facility] 10-17-2022 20:57-0500 Heart rate 98 /min [facility] 10-17-2022 20:57-0500 Respiratory rate 18 /min [facility] 10-17-2022 20:57-0500 SaO2% (BldA) [Mass fraction] 98 % [facility] 10-17-2022 18:58-0500 Body mass index (BMI) [Ratio] 31.3 kg/m2 [facility] 10-17-2022 18:58-0500 Body temperature 97.6 [degF] [facility] 10-17-2022 18:58-0500 Body weight 90.71 kg [facility] 10-17-2022 18:58-0500 Diastolic blood pressure 85 mm[Hg] [facility] 10-17-2022 18:58-0500 Systolic blood pressure 129 mm[Hg] [facility] 10-13-2022 13:28-0500 Body height 161.3 cm Sophie Avalos MD Work Phone: [facility] 10-13-2022 13:28-0500 Body weight 92.17 kg Sophie Avalos MD Work Phone: [facility] 10-13-2022 13:28-0500 Diastolic blood pressure 66 mm[Hg] Sophie Avalos MD Work Phone: [facility] 10-13-2022 13:28-0500 Heart rate 105 /min Sophie Avalos MD Work Phone: [facility] 10-13-2022 13:28-0500 SaO2% (BldA) [Mass fraction] 97 % Sophie Avalos MD Work Phone: [facility] 10-13-2022 13:28-0500 Systolic blood pressure 100 mm[Hg] Sophie Avalos MD Work Phone: [facility] 09-25-2022 11:51-0400 Body weight 90.72 kg Gia Colon APRN.CNP Work Phone: [facility] 09-25-2022 11:51-0400 Diastolic blood pressure 70 mm[Hg] Gia Lindsay CHOKE REAM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 Work Phone: [facility] 09-25-2022 11:51-0400 Heart rate 84 /min Gia Lindsay CHOKE REAM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 Work Phone: [facility] 09-25-2022 11:51-0400 Respiratory rate 16 /min Gia Lindsay CHOKE REAM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 Work Phone: [facility] 09-25-2022 11:51-0400 SaO2% (BldA) [Mass fraction] 95 % Gia Lindsay CHOKE REAM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 Work Phone: [facility] 09-25-2022 11:51-0400 Systolic blood pressure 112 mm[Hg] Gia Lindsay CHOKE REAM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 Work Phone: [facility] 09-24-2022 12:02-0400 Body height 170.18 cm [facility] Work Phone: 09-24-2022 12:02-0400 Body mass index (BMI) [Ratio] 29.7 kg/m2 [facility] 09-24-2022 12:02-0400 Body temperature 96.6 [degF] [facility] 09-24-2022 12:02-0400 Body weight 86.18 kg [facility] 09-24-2022 12:02-0400 Diastolic blood pressure 72 mm[Hg] [facility] 09-24-2022 12:02-0400 Heart rate 92 /min [facility] 09-24-2022 12:02-0400 Respiratory rate 16 /min [facility] 09-24-2022 12:02-0400 SaO2% (BldA) [Mass fraction] 98 % [facility] 09-24-2022 12:02-0400 Systolic blood pressure 107 mm[Hg] [facility] 07-31-2022 12:15-0400 Body temperature 97.9 [degF] Ruth Yue CHOKE REAM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 Work Phone: [facility] 07-31-2022 12:15-0400 Body weight 87.27 kg Ruth Yue CHOKE REAM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 Work Phone: [facility] 07-31-2022 12:15-0400 Diastolic blood pressure 76 mm[Hg] Ruth Yue CHOKE REAM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 Work Phone: [facility] 07-31-2022 12:15-0400 Heart rate 108 /min Ruth Vegask CHOKE REAM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 Work Phone: [facility] 07-31-2022 12:15-0400 Respiratory rate 18 /min Ruth Turner CHOKE REAM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 Work Phone: [facility] 07-31-2022 12:15-0400 SaO2% (BldA) [Mass fraction] 97 % Ruth Turner CHOKE REAM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 Work Phone: [facility] 07-31-2022 12:15-0400 Systolic blood pressure 122 mm[Hg] Ruth Vegask CHOKE REAM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 Work Phone: [facility] 07-31-2022 01:28-0400 Heart rate 74 /min [facility] Work Phone: 07-31-2022 01:28-0400 Respiratory rate 16 /min [facility] Work Phone: 07-31-2022 01:28-0400 SaO2% (BldA) [Mass fraction] 98 % [facility] Work Phone: 07-30-2022 23:57-0400 Body mass index (BMI) [Ratio] 31.8 kg/m2 [facility] Work Phone: 07-30-2022 23:57-0400 Body temperature 97.2 [degF] [facility] Work Phone: 07-30-2022 23:57-0400 Body weight 87 kg [facility] Work Phone: 07-30-2022 23:57-0400 Diastolic blood pressure 85 mm[Hg] [facility] Work Phone: 07-30-2022 23:57-0400 Systolic blood pressure 115 mm[Hg] [facility] Work Phone: 07-22-2022 12:50-0400 Body height 161.3 cm Jakub Roldan APRN.GEAR MACHINIST Work Phone: [facility] 07-22-2022 12:50-0400 Body weight 87 kg Jakub Roldan CHOKE REAM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 Work Phone: [facility] 07-22-2022 12:50-0400 Diastolic blood pressure 70 mm[Hg] Jakub Roldan CHOKE REAM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 Work Phone: [facility] 07-22-2022 12:50-0400 Systolic blood pressure 110 mm[Hg] Jakub Roldan CHOKE REAM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 Work Phone: [facility] 07-16-2022 08:06-0400 Body temperature 97.3 [degF] Brandi Oconnell CHOKE REAM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 Work Phone: [facility] 07-16-2022 08:06-0400 Body weight 84.82 kg Brandi Oconnell CHOKE REAM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 Work Phone: [facility] 07-16-2022 08:06-0400 Diastolic blood pressure 72 mm[Hg] Brandi Acostahausoscar CHOKE REAM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 Work Phone: [facility] 07-16-2022 08:06-0400 Heart rate 70 /min Brandi Oconnell CHOKE REAM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 Work Phone: [facility] 07-16-2022 08:06-0400 Respiratory rate 16 /min Brandi Oconnell CHOKE REAM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 Work Phone: [facility] 07-16-2022 08:06-0400 SaO2% (BldA) [Mass fraction] 98 % Brandi Oconnell CHOKE REAM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 Work Phone: [facility] 07-16-2022 08:06-0400 Systolic blood pressure 106 mm[Hg] Brandi Acostahausoscar CHOKE REAM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 Work Phone: [facility] 06-19-2022 13:37-0400 Body height 165.1 cm [facility] Work Phone: 06-19-2022 13:37-0400 Body mass index (BMI) [Ratio] 32.3 kg/m2 [facility] Work Phone: 06-19-2022 13:37-0400 Body temperature 97.8 [degF] [facility] Work Phone: 06-19-2022 13:37-0400 Body weight 87.99 kg [facility] Work Phone: 06-19-2022 13:37-0400 Diastolic blood pressure 82 mm[Hg] [facility] Work Phone: 06-19-2022 13:37-0400 Heart rate 89 /min [facility] Work Phone: 06-19-2022 13:37-0400 Respiratory rate 16 /min [facility] Work Phone: 06-19-2022 13:37-0400 SaO2% (BldA) [Mass fraction] 98 % [facility] Work Phone: 06-19-2022 13:37-0400 Systolic blood pressure 128 mm[Hg] [facility] Work Phone: 06-08-2022 14:57-0400 Body temperature 98.4 [degF] Sophie Avalos MD Work Phone: [facility] 06-08-2022 14:57-0400 Body weight 87.54 kg Sophie Avalos MD Work Phone: [facility] 06-08-2022 14:57-0400 Diastolic blood pressure 68 mm[Hg] Sophie Avalos MD Work Phone: [facility] 06-08-2022 14:57-0400 Heart rate 90 /min Sophie Avalos MD Work Phone: [facility] 06-08-2022 14:57-0400 Respiratory rate 16 /min Sophie Avalos MD Work Phone: [facility] 06-08-2022 14:57-0400 SaO2% (BldA) [Mass fraction] 98 % Sophie Avalos MD Work Phone: [facility] 06-08-2022 14:57-0400 Systolic blood pressure 100 mm[Hg] Sophie Avalos MD Work Phone: [facility] 05-25-2022 13:01-0400 Diastolic blood pressure 82 mm[Hg] Di Haagen CHOKE REAM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 Work Phone: [facility] 05-25-2022 13:01-0400 Heart rate 96 /min Di Haagen CHOKE REAM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 Work Phone: [facility] 05-25-2022 13:01-0400 Respiratory rate 18 /min Di Haagen CHOKE REAM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 Work Phone: [facility] 05-25-2022 13:01-0400 SaO2% (BldA) [Mass fraction] 97 % Di Haagen CHOKE REAM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 Work Phone: [facility] 05-25-2022 13:01-0400 Systolic blood pressure 116 mm[Hg] Di Haagen CHOKE REAM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 Work Phone: [facility] 05-14-2022 09:00-0400 Body temperature 98.29 [degF] Mary Ann Athy PA-C Work Phone: [facility] 05-14-2022 09:00-0400 Body weight 87.45 kg Mary Ann Athy PA-C Work Phone: [facility] 05-14-2022 09:00-0400 Diastolic blood pressure 80 mm[Hg] Mary Ann Athy PA-C Work Phone: [facility] 05-14-2022 09:00-0400 Heart rate 85 /min Mary Ann Athy PA-C Work Phone: [facility] 05-14-2022 09:00-0400 Respiratory rate 16 /min Mary Ann Athy PA-C Work Phone: [facility] 05-14-2022 09:00-0400 SaO2% (BldA) [Mass fraction] 98 % Mary Ann Stovre PA-C Work Phone: [facility] 05-14-2022 09:00-0400 Systolic blood pressure 122 mm[Hg] Mary Ann Stover PA-C Work Phone: [facility] 05-13-2022 10:45-0400 Diastolic blood pressure 84 mm[Hg] Di Haagen CHOKE REAM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 Work Phone: [facility] 05-13-2022 10:45-0400 Heart rate 85 /min Di Haagen CHOKE REAM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 Work Phone: [facility] 05-13-2022 10:45-0400 Respiratory rate 18 /min Di Haagen CHOKE REAM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 Work Phone: [facility] 05-13-2022 10:45-0400 SaO2% (BldA) [Mass fraction] 96 % Di Haagen CHOKE REAM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 Work Phone: [facility] 05-13-2022 10:45-0400 Systolic blood pressure 106 mm[Hg] Di Haagen CHOKE REAM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 Work Phone: [facility] 04-30-2022 14:11-0400 Body weight 87.54 kg Sophie Avalos MD Work Phone: [facility] 04-30-2022 14:11-0400 Diastolic blood pressure 62 mm[Hg] Sophie Avalos MD Work Phone: [facility] 04-30-2022 14:11-0400 Heart rate 88 /min Sophie Avalos MD Work Phone: [facility] 04-30-2022 14:11-0400 Systolic blood pressure 102 mm[Hg] Sophie Avalos MD Work Phone: [facility] 04-24-2022 10:02-0400 Body weight 85 kg Nurse Wstr Work Phone: [facility] 04-24-2022 10:02-0400 Diastolic blood pressure 70 mm[Hg] Nurse Wstr Work Phone: [facility] 04-24-2022 10:02-0400 Systolic blood pressure 108 mm[Hg] Nurse Wstr Work Phone: [facility] 04-22-2022 12:57-0400 Body weight 84.19 kg Di Arreola CHOKE REAM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 Work Phone: [facility] 04-22-2022 12:57-0400 Diastolic blood pressure 66 mm[Hg] Di Arreola CHOKE REAM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 Work Phone: [facility] 04-22-2022 12:57-0400 Heart rate 92 /min Di Arreola CHOKE REAM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 Work Phone: [facility] 04-22-2022 12:57-0400 Respiratory rate 14 /min Di Arreola CHOKE REAM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 Work Phone: [facility] 04-22-2022 12:57-0400 SaO2% (BldA) [Mass fraction] 98 % Di Arreola CHOKE REAM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 Work Phone: [facility] 04-22-2022 12:57-0400 Systolic blood pressure 104 mm[Hg] Di Arreola CHOKE REAM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 Work Phone: [facility] 04-21-2022 13:19-0400 Body height 165.1 cm [facility] Work Phone: 04-21-2022 13:19-0400 Body mass index (BMI) [Ratio] 29.9 kg/m2 [facility] Work Phone: 04-21-2022 13:19-0400 Body temperature 98.1 [degF] [facility] Work Phone: 04-21-2022 13:19-0400 Body weight 81.64 kg [facility] Work Phone: 04-21-2022 13:19-0400 Diastolic blood pressure 81 mm[Hg] [facility] Work Phone: 04-21-2022 13:19-0400 Heart rate 81 /min [facility] Work Phone: 04-21-2022 13:19-0400 Respiratory rate 14 /min [facility] Work Phone: 04-21-2022 13:19-0400 SaO2% (BldA) [Mass fraction] 95 % [facility] Work Phone: 04-21-2022 13:19-0400 Systolic blood pressure 113 mm[Hg] [facility] Work Phone: 04-09-2022 13:57-0400 Body weight 83.01 kg Sophie Avalos MD Work Phone: [facility] 04-09-2022 13:57-0400 Diastolic blood pressure 62 mm[Hg] Sophie Avalos MD Work Phone: [facility] 04-09-2022 13:57-0400 Heart rate 76 /min Sophie Avalos MD Work Phone: [facility] 04-09-2022 13:57-0400 Systolic blood pressure 114 mm[Hg] Sophie Avalos MD Work Phone: [facility] 01-26-2022 12:05-0500 Body mass index (BMI) [Ratio] 31.3 kg/m2 [facility] Work Phone: 01-26-2022 12:05-0500 Body temperature 96.2 [degF] [facility] Work Phone: 01-26-2022 12:05-0500 Body weight 90.71 kg [facility] Work Phone: 01-26-2022 12:05-0500 Diastolic blood pressure 78 mm[Hg] [facility] Work Phone: 01-26-2022 12:05-0500 Heart rate 85 /min [facility] Work Phone: 01-26-2022 12:05-0500 Respiratory rate 16 /min [facility] Work Phone: 01-26-2022 12:05-0500 SaO2% (BldA) [Mass fraction] 99 % [facility] Work Phone: 01-26-2022 12:05-0500 Systolic blood pressure 132 mm[Hg] [facility] Work Phone: 10-07-2021 10:43-0500 Diastolic blood pressure 95 mm[Hg] BOAZ ZAPATA MD [facility] 10-07-2021 10:43-0500 Heart rate 87 /min BOAZ ZAPATA MD [facility] 10-07-2021 10:43-0500 Respiratory rate 16 /min BOAZ ZAPATA MD [facility] 10-07-2021 10:43-0500 Systolic blood pressure 117 mm[Hg] BOAZ ZAPATA MD [facility] 10-07-2021 10:05-0500 Diastolic blood pressure 76 mm[Hg] BOAZ ZAPATA MD [facility] 10-07-2021 10:05-0500 Heart rate 80 /min BOAZ ZAPATA MD [facility] 10-07-2021 10:05-0500 Respiratory rate 16 /min BOAZ ZAPATA MD [facility] 10-07-2021 10:05-0500 Systolic blood pressure 119 mm[Hg] BOAZ ZAPATA MD [facility] 10-07-2021 09:47-0500 Body height 170 cm BOAZ ZAPATA MD [facility] 10-07-2021 09:47-0500 Body temperature 98.96 [degF] BOAZ ZAPATA MD [facility] 10-07-2021 09:47-0500 Body weight 95.5 kg BOAZ ZAPATA MD [facility] 10-07-2021 09:47-0500 Diastolic blood pressure 79 mm[Hg] BOAZ ZAPATA MD [facility] 10-07-2021 09:47-0500 Heart rate 82 /min BOAZ ZAPATA MD [facility] 10-07-2021 09:47-0500 Respiratory rate 18 /min BOAZ ZAPATA MD [facility] 10-07-2021 09:47-0500 Systolic blood pressure 107 mm[Hg] BOAZ ZAPATA MD [facility] 09-30-2021 14:50-0400 Body height 170.18 cm Sophie Avalos Work Phone: UP-HRHSS-Hzkskwpu g Work Phone: 09-30-2021 14:50-0400 Body mass index (BMI) [Ratio] 32.11 kg/m2 Sophie Avalos Work Phone: QM-DWMFC-Ggascfnp g Work Phone: 09-30-2021 14:50-0400 Body surface area Derived from formula 2.04 m2 Sophie Avalos Work Phone: UY-GCOUG-Ldqqrhqw g Work Phone: 09-30-2021 14:50-0400 Body weight 92.99 kg Sophie Avalos Work Phone: QN-POIOT-Qpzinldg g Work Phone: 09-30-2021 14:50-0400 Diastolic blood pressure 60 mm[Hg] Sophie Avalos Work Phone: DY-SODWL-Noxhtouy g Work Phone: 09-30-2021 14:50-0400 Systolic blood pressure 120 mm[Hg] Sophie Avalos Work Phone: WT-BKJML-Hgbdwgju g Work Phone: 09-30-2021 14:50-0400 0 1 Sophie Avalos Work Phone: RU-JOCNA-Zpblwzco g Work Phone: Comment on above: GRAV PARA [employer] 2021 13:44-0400 Body height 165.1 cm Sophie Avalos Work Phone: SB-JFGPO-Vmfhqcmw g Work Phone: 2021 13:44-0400 Body mass index (BMI) [Ratio] 34.28 kg/m2 Sophie Avalos Work Phone: NC-KZNSK-Phmcnmbl g Work Phone: 2021 13:44-0400 Body surface area Derived from formula 2 m2 Sophie Avalos Work Phone: MJ-ILOQM-Eosmahys g Work Phone: 2021 13:44-0400 Body weight 93.44 kg Sophie Avalos Work Phone: VR-FCBEP-Tcseievo g Work Phone: 2021 13:44-0400 Diastolic blood pressure 64 mm[Hg] Sophie Avalos Work Phone: CX-DUMAB-Kqpiobbi g Work Phone: 2021 13:44-0400 Systolic blood pressure 115 mm[Hg] Sophie Avalos Work Phone: WB-BBBEC-Dymqqwxw g Work Phone: 2021 13:44-0400 0 1 Sophie Avalos Work Phone: RE-NOSPJ-Rfqsvncj g Work Phone: Comment on above: GRAV [facility] 05-26-2021 13:26-0400 Body height 165.1 cm Sophie Avalos Work Phone: VT-TMAQZ-Rmwhnsyw g Work Phone: 05-26-2021 13:26-0400 Body mass index (BMI) [Ratio] 32.62 kg/m2 Sophie Avalos Work Phone: TD-GGKKM-Uarinuse g Work Phone: 05-26-2021 13:26-0400 Body surface area Derived from formula 1.96 m2 Sophie Avalos Work Phone: RJ-NAGHB-Ulevgvno g Work Phone: 05-26-2021 13:26-0400 Body weight 88.91 kg Sophie Avalos Work Phone: LU-DRONJ-Rgjuunyp g Work Phone: 05-26-2021 13:26-0400 Diastolic blood pressure 82 mm[Hg] Sophie Avalos Work Phone: BR-FBKCF-Vudjinwh g Work Phone: 05-26-2021 13:26-0400 Systolic blood pressure 130 mm[Hg] Sophie Avalos Work Phone: JW-PBXEV-Qhloyrro g Work Phone: 05-26-2021 13:26-0400 0 1 Sophie Avalos Work Phone: PA-QAITR-Hbgipfsi g Work Phone: Comment on above: GRAV [employer] [employer] 05-06-2021 15:38-0400 Body height 165.1 cm Sophie Avalos Work Phone: WM-WPACF-Enyfmlld g Work Phone: 05-06-2021 15:38-0400 Body mass index (BMI) [Ratio] 33.28 kg/m2 Sophie Avalos Work Phone: GJ-MFCZW-Ousvnmpv g Work Phone: 05-06-2021 15:38-0400 Body surface area Derived from formula 1.98 m2 Sophie Avalos Work Phone: BC-FEAWQ-Wdapjupd g Work Phone: 05-06-2021 15:38-0400 Body weight 90.72 kg Sophie Avalos Work Phone: CP-KGOTS-Ominjcac g Work Phone: 05-06-2021 15:38-0400 Diastolic blood pressure 75 mm[Hg] Sophie Avalos Work Phone: PD-JCXMY-Iklbdfht g Work Phone: 05-06-2021 15:38-0400 Systolic blood pressure 126 mm[Hg] Sophie Avalos Work Phone: VG-CYBKB-Yxedlxgf g Work Phone: 05-06-2021 15:38-0400 0 1 Sophie Avalos Work Phone: TD-STUHC-Ulwnlmkn g Work Phone: Comment on above: GRAV [employer]A [facility] 04-21-2021 16:11-0400 Body height 165.1 cm Sophie Avalos Work Phone: TP-LAIMW-Dxrtasfz g Work Phone: 04-21-2021 16:11-0400 Body mass index (BMI) [Ratio] 32.78 kg/m2 Sophie Avalos Work Phone: RV-GFOWP-Taurbnwk g Work Phone: 04-21-2021 16:11-0400 Body surface area Derived from formula 1.97 m2 Sophie Avalos Work Phone: SF-HBSEO-Wkhxsgdi g Work Phone: 04-21-2021 16:11-0400 Body weight 89.36 kg Sophie Avalos Work Phone: NY-PBEQK-Flbyxuat g Work Phone: 04-21-2021 16:11-0400 Diastolic blood pressure 82 mm[Hg] Sophie Avalos Work Phone: RH-CTFJT-Hhwrvusz g Work Phone: 04-21-2021 16:11-0400 Systolic blood pressure 120 mm[Hg] Sophie Avalos Work Phone: FK-ATENR-Grouwmqy g Work Phone: 04-21-2021 16:11-0400 0 1 Sophie Avalos Work Phone: OD-KLGUK-Xenyhfej g Work Phone: Comment on above: GRAV PARA [employer] 06-05-2020 15:12-0400 BMI (Body Mass Index) 27.99 kg/m2 Manny Daniel ZV-RJNML-Imeijghw 100 Work Phone: 06-05-2020 15:12-0400 Body weight 71.67 kg Manny Daniel OD-TWSOU-Lcjcyc nd 100 Work Phone: 06-05-2020 15:12-0400 BP Diastolic 78 mm[Hg] Manny Daniel GT-RSJZV-Eyesvu nd 100 Work Phone: 06-05-2020 15:12-0400 BP Systolic 114 mm[Hg] Manny Daniel YK-ODPNZ-Kbmjok nd 100 Work Phone: 06-05-2020 15:12-0400 BSA (Body Surface Area) 1.75 m2 Manny Daniel UN-JPZCE-Hqlluamt 100 Work Phone: 06-05-2020 15:12-0400 Height 160.02 cm Manny Daniel GU-FAHGM-Sbciij nd 100 Work Phone: 06-05-2020 15:12-0400 2 1 Manny Daniel QH-FACMR-Zskudj nd 100 Work Phone: Comment on above: 06-05-2020 15:12-0400 0 1 Manny Daniel II-ULWNS-Avhvgb nd 100 Work Phone: Comment on above: Para 03-18-2020 15:23-0400 BMI (Body Mass Index) 27.1 kg/m2 Fred Arevaloptanya RZ-GPIEZ-Hxcvvqn 44 Work Phone: 03-18-2020 15:23-0400 Body weight 69.4 kg Fred Arevalocadentanya YC-DKNUU-Uochjyz 44 Work Phone: 03-18-2020 15:23-0400 BP Diastolic 70 mm[Hg] Fred Arevalopka TM-DOWIP-Ccwoajh 44 Work Phone: 03-18-2020 15:23-0400 BP Systolic 110 mm[Hg] Fred Arevalopka LB-VVDLG-Wkjvjho 44 Work Phone: 03-18-2020 15:23-0400 BSA (Body Surface Area) 1.73 m2 Fred Arevalocadentanya NG-LXYBF-Pjfhhbv 44 Work Phone: 03-18-2020 15:23-0400 Height 160.02 cm Fred Murphy VL-YTPON-Amrrqek 44 Work Phone: 03-18-2020 15:23040 2 1 Fred Murphy UT-GPYHZ-Qjxbukv 44 Work Phone: Comment on above: Clifford 03-18-2020 15:23-0400 0 1 Fred Murphy XQ-GPNMW-Bsbspbs 44 Work Phone: Comment on above: Para Encounters Encounter Date Encounter Type Care Provider Facility Start: 10-03-2025 End: 10-03-2025 ambulatory TRAVIS SALDIVAR Facility:[facility] Start: 09-28-2025 End: 09-28-2025 ambulatory JAKUB ROLDAN Facility:[facility] Start: 09-21-2025 End: 09-21-2025 ambulatory RACHELE SONG Facility:[facility] Start: 09-21-2025 End: 09-21-2025 Emergency department patient visit Justin Goldman Facility:[facility] Start: 09-11-2025 End: 09-11-2025 ambulatory MARIA TERESA JOHN Facility:[facility] Start: 09-10-2025 End: 09-10-2025 Emergency department patient visit Mukul Yusuf DO -Emergency Department Work Phone: Start: 09-04-2025 End: 09-05-2025 Emergency department patient visit Dr. Sophie Avalos MD Work Phone: -Emergency Department Work Phone: Start: 08-21-2025 End: 08-21-2025 ambulatory FELIPA TORRES Facility:[facility] Start: 08-14-2025 End: 08-14-2025 Follow-up encounter Felipa Torres CHOKE REAM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 Work Phone: [facility] [place] Start: 08-14-2025 End: 08-14-2025 Subsequent hospital visit by physician X[facility] Work Phone: Radiology Comment on above: Foot pain, left [M79 .672] Start: 08-14-2025 End: 08-14-2025 Office outpatient visit 15 minutes Felipa Torres APRN.GEAR MACHINIST Work Phone: [facility] [place] Comment on above: Foot pain, left (Sharron amy Dx); Acute left ankle pain Start: 08-14-2025 End: 08-14-2025 ambulatory FELIPA TORRES Facility:[facility] Start: 08-10-2025 End: 08-10-2025 Emergency department patient visit Dr. Sophie Avalos MD Work Phone: -Emergency Department Work Phone: Start: 08-08-2025 End: 08-08-2025 Subsequent hospital visit by physician Xr [facility] [place] Work Phone: Radiology Comment on above: Acute cough [R05.1] Start: 08-08-2025 End: 08-08-2025 Patient encounter procedure Silvia Christensen APRN.GEAR MACHINIST Work Phone: [facility] [place] Comment on above: Acute cough (Primary Dx); URI, acute; Tobacco abuse; Acute otitis media, left; Acute sinusitis, recurrence not specified, unspecified location; Allergy to penicillin; Asthma, unspecified asthma severity, unspecified whether complicated, unspecified whether persistent (HCC) Start: 08-08-2025 End: 08-08-2025 ambulatory SOPHIE AVALOS Facility:[facility] Start: 07-31-2025 End: 07-31-2025 ambulatory DI ARREOLA Facility:[facility] Start: 07-31-2025 Encounter for gynecological examination (general) (routine) without abnormal findings DI ARREOLA [facility] Start: 07-31-2025 End: 07-31-2025 Office outpatient visit 25 minutes Di Arreola APRN.GEAR MACHINIST Work Phone: [facility] [place] Comment on above: Intractable chronic migraine without aura and without status migrainosus (Primary Dx); Encounter for gynecological examination without abnormal finding Start: 07-31-2025 End: 07-31-2025 Patient encounter status Di Arreola APRN.GEAR MACHINIST Work Phone: [facility] Start: 06-26-2025 End: 06-29-2025 Telephone encounter Di Arreola APRN.CNP Work Phone: [facility] [place] Comment on above: Forms (BMV) Refill Request Insurance Authorizat ion Start: 06-25-2025 End: 06-25-2025 Office outpatient visit 25 minutes Di Arreola APRN.CNP Work Phone: [facility] [place] Comment on above: Intractable migraine without status migrainosus, unspecified migraine type (Primary Dx); Seizure disorder (HCC); Major depressive disorder, recurrent, moderate (HCC); Attention deficit disorder, unspecified type Start: 06-25-2025 End: 06-25-2025 ambulatory [facility] Facility:[facility] Start: 05-04-2025 End: 05-07-2025 Follow-up encounter Di Arreola APRN.CNP Work Phone: [facility] [place] Comment on above: Results Start: 05-01-2025 End: 05-02-2025 Telephone encounter Di Arreola APRN.CNP Work Phone: [facility] [place] Comment on above: Appointment Start: 05-01-2025 End: 05-01-2025 Subsequent hospital visit by physician Xr [facility] [place] Work Phone: Radiology Comment on above: Finger injury, left, sequela [S69.92XS] Start: 05-01-2025 End: 05-01-2025 ambulatory [facility] Facility:[facility] Start: 05-01-2025 End: 05-01-2025 Office outpatient visit 25 minutes Di Arreola APRN.CNP Work Phone: [facility] [place] Comment on above: Right lower quadrant abdominal pain (Primary Dx); Depression, unspecified depression type; Folic acid deficiency; Anemia, unspecified type; SOB (shortness of breath); Mild intermittent asthma with acute exacerbation (HCC); Finger injury, left, sequela; Benign tumor of mouth; Prediabetes; RUQ pain; Hypoglycemia; Diarrhea, unspecified type Start: 05-01-2025 End: 05-01-2025 ambulatory [facility] Facility:[facility] Start: 04-30-2025 End: 06-02-2025 ambulatory Nurse Intm/Famp Triage [facility] Work Phone: Nurse Phone Triage Comment on above: Abdominal Pain Start: 08-12-2023 Refill Gia Jemima arana APRN.CNP Work Phone: [facility] Comment on above: Refill Request Medication Problem Start: 03-01-2023 Refill Sophie Avalos MD Work Phone: [facility] [place] Comment on above: Refill Request Start: 02-06-2023 End: 02-06-2023 [facility] Start: 01-19-2023 End: 01-19-2023 ambulatory SOPHIE AVALOS [facility] Start: 01-19-2023 End: 01-19-2023 Patient encounter procedure Cecilia Craig PA-C Work Phone: [facility] Comment on above: S/P cholecystectomy (Primary Dx) Start: 01-08-2023 End: 01-09-2023 [facility] Start: 12-31-2022 End: 12-31-2022 ambulatory [facility] Facility:[facility] Start: 12-28-2022 End: 12-28-2022 Patient encounter procedure Nurse Genetic Physician [facility] Work Phone: OB/Gynecology Comment on above: Encounter for manage ment and injection of depo-Provera (Primary Dx) Start: 12-24-2022 End: 12-25-2022 ambulatory [facility] Start: 12-24-2022 Encounter for other preprocedural examination [facility] Start: 12-24-2022 End: 12-24-2022 PAT Pst [facility] 2 Pre Surgical Testing Comment on [...] Telephone encounter Sophie Avalos MD Work Phone: [facility] Comment on above: Medication Problem Start: 11-24-2022 Refill Sophie Avalos MD Work Phone: [facility] Comment on above: Refill Request Start: 11-10-2022 End: 11-10-2022 ambulatory JUAQUIN WALSH Facility:[facility] Start: 11-10-2022 End: 11-10-2022 Patient encounter procedure Juaquin Walsh MD Work Phone: [facility] Comment on above: Biliary colic (Prima ry Dx) Start: 10-28-2022 End: 10-28-2022 Patient encounter procedure Sweetie Dorsey CHOKE REAM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 Work Phone: [facility] Comment on above: Viral URI with cough (Primary Dx); Otalgia of right ear Start: 10-17-2022 End: 10-17-2022 [facility] Start: 10-13-2022 End: 10-13-2022 Patient encounter procedure Sophie Avalos MD Work Phone: [facility] Comment on above: Breast pain (Primary Dx) Start: 09-27-2022 ambulatory Gia arana CHOKE REAM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 Work Phone: [facility] Comment on above: Doctors note Start: 09-25-2022 End: 09-25-2022 Patient encounter procedure Gia Colon CHOKE REAM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 Work Phone: [facility] Comment on above: Chronic right should er pain (Primary Dx); Chronic neck pain; Prediabetes Start: 09-24-2022 End: 09-24-2022 [facility] Start: 09-18-2022 End: 09-18-2022 ambulatory Emg 850) Neurology Comment on above: EMG Start: 09-18-2022 End: 09-18-2022 Patient encounter procedure Emg 1 Neur Kasey (Max Weight: 850) KASEY Start: 09-07-2022 Telephone encounter Danielagail elliott APRN.GEAR MACHINIST Work Phone: [facility] Comment on above: Opened In Error Start: 09-05-2022 End: 09-05-2022 Subsequent hospital visit by physician Nicole [facility] Work Phone: Radiology Comment on above: Bronchitis [J40] Start: 09-04-2022 ambulatory Danielagail plasencia CHOKE REAM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 Work Phone: [facility] Comment on above: Prescription Start: 09-04-2022 Refill Daniela Salas agustín CHOKE REAM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 Work Phone: [facility] Comment on above: Med Change Request Start: 07-31-2022 End: 07-31-2022 Patient encounter procedure Ruth Turner APRN.GEAR MACHINIST Work Phone: [facility] Comment on above: Upper respiratory sy mptom (Primary Dx); Diarrhea, unspecified type; Right lower quadrant abdominal pain Start: 07-30-2022 End: 07-31-2022 [facility] Start: 07-22-2022 End: 07-22-2022 Patient encounter procedure Jakub Roldan APRN.GEAR MACHINIST Work Phone: OB/Gynecology Comment on above: Encounter for gyneco logical examination (general) (routine) without abnormal findings (Primary Dx); Screening for cervical cancer; Encounter for screening for human papillomavirus (HPV); Encounter for prescription for depo-Provera; Screen for STD (sexually transmitted disease) Start: 07-22-2022 End: 07-22-2022 Patient encounter status Jakub Roldan APRN.GEAR MACHINIST Work Phone: OB/Gynecology Start: 07-21-2022 End: 07-21-2022 Subsequent hospital visit by physician [facility] Work Phone: Radiology Comment on above: Leg weakness, bilate ral [R29.898] Start: 07-17-2022 Telephone encounter Latonya Llamas APRN.GEAR MACHINIST [facility] Comment on above: Opened In Error Start: 07-16-2022 End: 07-16-2022 [facility] Work Phone: Nuclear Medicine Comment on above: Nausea [R11.0] Start: 07-16-2022 End: 07-16-2022 Patient encounter procedure Brandi Oconnell GEAR MACHINIST Work Phone: Neurology Comment on above: Leg weakness, bilate ral (Primary Dx); Paresthesia; Right arm numbness; Lower extremity numbness Start: 07-06-2022 End: 07-06-2022 Subsequent hospital visit by physician [facility] Work Phone: Radiology Comment on above: RUQ abdominal pain [ R10.11] Start: 07-06-2022 Telephone encounter Yisel Ewing PA-C [facility] Comment on above: Patient Update Start: 06-29-2022 ambulatory Sophie Avalos MD Work Phone: [facility] Comment on above: Medication Start: 06-19-2022 End: 06-19-2022 Emergency department patient visit [facility] Start: 06-09-2022 Telephone encounter Sophie Avalos MD Work Phone: [facility] Comment on above: Results Start: 06-08-2022 End: 06-08-2022 Subsequent hospital visit by physician [facility] [place] Work Phone: Radiology Comment on above: Right elbow pain [M2 5.521] Start: 06-08-2022 End: 06-08-2022 Patient encounter procedure Sophie Avalos MD Work Phone: [facility] Comment on above: Eyelid disorder (Sharron amy Dx); Right elbow pain; Paresthesia Start: 06-04-2022 End: 06-04-2022 ambulatory Jarrett Hodgson PT [facility] Comment on above: Acute pain of right shoulder (Primary Dx) Start: 05-26-2022 End: 05-26-2022 ambulatory Jarrett Hodgson PT [facility] Comment on above: Acute pain of right shoulder (Primary Dx) Start: 05-25-2022 End: 05-25-2022 Office outpatient visit 15 minutes Di Arreola CHOKE REAM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 Work Phone: [facility] [place] Comment on above: Acute pain of right shoulder (Primary Dx) Start: 05-14-2022 End: 05-14-2022 Patient encounter procedure Mary Ann Stover PA-C Work Phone: [facility] Comment on above: Tail bone pain (Prim shaka Dx) Start: 05-13-2022 End: 05-13-2022 Office outpatient visit 15 minutes Di Arreola CHOKE REAM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 Work Phone: [facility] [place] Comment on above: Acute pain of right shoulder (Primary Dx) Start: 05-12-2022 End: 05-12-2022 ambulatory Jarrett Hodgson PT [facility] Comment on above: Acute pain of right shoulder (Primary Dx) Start: 04-30-2022 End: 04-30-2022 Subsequent hospital visit by physician Xr [facility] [place] Work Phone: Radiology Comment on above: Acute pain of right shoulder [M25.511] Start: 04-30-2022 End: 04-30-2022 Patient encounter procedure Sophie Avalos MD Work Phone: [facility] Comment on above: Acute pain of right shoulder (Primary Dx) Start: 04-30-2022 End: 04-30-2022 ambulatory Jarrett Hodgson PT [facility] Comment on above: Acute pain of right shoulder (Primary Dx) Start: 04-24-2022 Telephone encounter Sophie Avalos MD Work Phone: [facility] Comment on above: Work Excuse Start: 04-24-2022 End: 04-24-2022 Nursing evaluation of patient and report Nurse Genetic Physician [facility] Work Phone: OB/Gynecology Comment on above: Encounter for manage ment and injection of depo-Provera (Primary Dx) Start: 04-23-2022 End: 04-23-2022 ambulatory Jarrett Hodgson PT [facility] Comment on above: Acute pain of right shoulder Start: 04-22-2022 End: 04-22-2022 Patient encounter procedure Di Arreola JAZMIN Work Phone: [facility] Comment on above: Acute pain of right shoulder (Primary Dx) Start: 04-21-2022 End: 04-21-2022 [facility] Start: 04-09-2022 End: 04-09-2022 Patient encounter procedure Sophie Avalos MD Work Phone: [facility] Comment on above: Diarrhea, unspecifie d type (Primary Dx); Abdominal cramping; Right upper quadrant pain Start: 01-26-2022 End: 01-26-2022 [facility] Start: 12-09-2021 End: 12-09-2021 Subsequent hospital visit by physician Xr [facility] Work Phone: Radiology Comment on above: Suspected COVID-19 v irus infection [Z20.822] Start: 10-07-2021 End: 10-07-2021 Emergency department patient visit BOAZ ZAPATA MD [facility] Start: 09-30-2021 Office outpatient vi sit 15 minutes Sophie Avalos Work Phone: VJ-UHLSE-Zpzwleunm Work Phone: Start: 09-23-2021 End: 09-23-2021 Subsequent hospital visit by physician Xr [facility] Work Phone: Radiology Comment on above: SOB (shortness of br eath) [R06.02] Start: 09-03-2021 Chart Update Sophie Avalos Work Phone: FC-LPMTV-Xfeudyht 100 Work Phone: Start: 09-03-20[facility], Status: Pen, Time: 9:30 AM Sophie Avalos Work Phone: TW-LOXBV-Bgpootslp Work Phone: Start: 09-02-2021 Chart Update Sophie Avalos Work Phone: RF-PNRXC-Fjoqjmkej Work Phone: Start: 2021 Office outpatient vi sit 25 minutes Sophie Avalos Work Phone: NN-EKDVJ-Cntbobcnk Work Phone: Start: 05-30-2021 AUDIT Sophie Avalos Work Phone: EK-JFRQX-Yxxhzrdld Work Phone: Start: 05-26-2021 Office outpatient vi sit 25 minutes Sophie Avalos Work Phone: CF-HBGUC-Kzczrlsjt Work Phone: Start: 05-15-2021 Chart Update Sophie Avalos Work Phone: JH-IKXMT-Wlfcdga 44 Work Phone: Start: 05-09-2021 Chart Update Sophie Avalos Work Phone: GQ-UBMST-Puxdtciov Work Phone: Start: 02-03-2021 End: 02-03-2021 Subsequent hospital visit by physician Xr [facility] Work Phone: Radiology Comment on above: Sprain of ligament o f left ankle, subsequent encounter [S93.402D] Start: 01-22-2021 End: 01-22-2021 Subsequent hospital visit by physician Xr [facility] [place] Work Phone: Radiology Comment on above: ov Start: 06-05-2020 Patient encounter procedure Manny Daniel TW-VAHTH-Avzfvhxm 100 Work Phone: Start: 06-03-2020 Patient encounter procedure Manny Daniel HD-SWUBK-Cwcesebm 100 Work Phone: Start: 03-18-2020 Patient encounter procedure Fred Murphy LI-GJFPD-Khrecyn 44 Work Phone: Start: 01-18-2020 Patient encounter procedure Fred Rzepka MH-LQUQN-Gkiajer 44 Work Phone: Start: 12-15-2019 Patient encounter procedure Fred Rzepka BB-VVIZK-Yhoshgi 44 Work Phone: Start: 10-24-2019 Patient encounter procedure Fred Rzepka VC-TIJGP-Jywvmjz 44 Work Phone: Start: 09-22-2019 Patient encounter procedure Fred Rcharmainepka ZE-QAPNM-Kwpdqiw 44 Work Phone: Start: 09-11-2019 Patient encounter procedure Fred Rzepka QQ-OVIVU-Suqgaoo 44 Work Phone: Start: 08-29-2019 Patient encounter procedure Fred Rzepka UA-JMWMF-Qqlzvpv 44 Work Phone: Start: 07-11-2019 Patient encounter procedure Fred Rzepka BR-CYOWL-Rpjxrnv 44 Work Phone: Start: 07-04-2019 Patient encounter procedure Fred Rzepka IL-FKSCT-Yoovmwi 44 Work Phone: Start: 06-06-2019 Patient encounter procedure Fred Rzepka NN-NLNHX-Yhudcrf 44 Work Phone: Start: 05-11-2019 Patient encounter procedure Fred Rzepka IJ-WFYOA-Ncljvbf 44 Work Phone: Start: 05-09-2019 Patient encounter procedure Fred Rzepka IQ-LSAUA-Hfmmbkb 44 Work Phone: Start: 05-02-2019 Patient encounter procedure Fred Rzepka MJ-GZGHC-Aqnullk 44 Work Phone: Start: 09-19-2018 Patient encounter Marva Cline ility:[facility] Start: 05-12-2018 Emergency department patient visit Roger Dunlap PAC Facility:[facility] Start: 05-10-2018 Patient encounter Roger Dunlap PAC Facility:[facility] Cancer cervix - screening done Sophie Francisca Avalos Work Phone: GF-HBVRQ-Koatmhmri Work Phone: Encounter for gynecological examination (general) (routine) without abnormal findings Sophie Francisca Robbie Work Phone: UZ-PLYGY-Urzjgbruc Work Phone: Patient encounter procedure Sophie Espinosa Robbie Work Phone: BC-GAVKC-Indnjtymf Work Phone: Procedures Date Procedure Procedure Detail Performing Clinician Start: 09-21-[address] Sophie Avalos MD Work Phone: Start: 09-10-2025 Plain X-ray of shoulder Dr. Sophie Avalos MD Work Phone: Start: 09-10-2025 Ct abdomen & pelvis w/contrast material Dr. Sophie Avalos MD Work Phone: Start: 09-10-[address] Sophie Avalos MD Work Phone: Start: 09-04-2025 Urnls dip stick/tabl et reagent auto microscopy Dr. Sophie Avalos MD Work Phone: Start: 09-04-2025 Ct abdomen & pelvis w/contrast material Dr. Sophie Avalos MD Work Phone: Start: 09-04-[address] Sophie Avalos MD Work Phone: Start: 08-14-2025 Radex ankle complete minimum 3 views Felipa Torres CHOKE REAM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 Work Phone: Start: 08-10-2025 X-ray of foot, three or more views Dr. Sophie Avalos MD Work Phone: Start: 08-10-2025 X-ray of ankle, thre e or more views Dr. Sophie Avalos MD Work Phone: Start: 08-08-2025 Radiologic exam ches t 2 views Silvia Christensen CHOKE REAM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 Work Phone: Start: 08-08-2025 Iadna streptococcus group a amplified probe tq Silvia Christensen CHOKE REAM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 Work Phone: Start: 01-08-2023 Plain chest X-ray Start: 12-28-2022 Urine test visual color cmprsn meths Jakub Roldan CHOKE REAM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 Work Phone: Start: 10-17-2022 Plain chest X-ray Start: 09-18-2022 Nerve conduction krystyna dies 5-6 studies Brandi Oconnell CHOKE REAM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 Work Phone: Start: 09-05-2022 Radiologic exam ches t 2 views Daniela Manish CHOKE REAM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 Work Phone: Start: 07-21-2022 Radex spine lumbosac ral 2/3 views Brandi Oconnell CHOKE REAM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 Work Phone: Start: 07-16-2022 Hepatobil syst imag inc gb w/pharma intervenj Latonya Llamas CHOKE REAM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 Work Phone: Start: 07-06-2022 Us abdominal real ti me w/image limited Latonya Llamas CHOKE REAM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 Work Phone: Start: 06-08-2022 Radex elbow 2 views Howie Avalos MD Work Phone: Start: 06-08-2022 Adult depression scr eening assessment Sophie Avalos MD Work Phone: Start: 04-30-2022 Radex shoulder compl ete minimum 2 views Sophie Avalos MD Work Phone: Start: 12-09-2021 Radiologic exam ches t 2 views Silvia Christensen CHOKE REAMER.[facility] Work Phone: Start: 09-23-2021 Radiologic exam ches t 2 views Brittney Schaefer PA-C Work Phone: Start: 08-27-2021 Antibody screen Comment on above: Performed By: #### T +S #### [address] [id number] Start: 02-03-2021 Radex ankle complete minimum 3 views Brenda Rodriguez DPM Work Phone: Start: 01-22-2021 Radex ankle complete minimum 3 views Gia Colon CHOKE REAMERTrippGEAR MACHINIST Work Phone: History of cholecystectomy S/P cholecyste ctomy Cecilia Craig PARegC Work Phone: Laparoscopy Fred Murphy Laparoscopy BOAZ SRIVASTAVA MD SARS-CoV-2 & FLU Ant igen (Rapid) SARS-CoV-2 & FLU Ant igen (Rapid) Plan of Treatment Date Care Activity Detail Author Start: 11-16-2031 Urine microalbumin profile [facility] Start: 08-14-2026 Annual PCP Team Chronic Disease Visit Annual PCP Team Chronic Disease Visit [facility] Start: 07-31-2026 Annual PCP Team Chronic Disease Visit Annual PCP Team Chronic Disease Visit [facility] Start: 06-25-2026 Annual PCP Team Chronic Disease Visit Annual PCP Team Chronic Disease Visit [facility] Start: 05-01-2026 Annual PCP Team Chronic Disease Visit Annual PCP Team Chronic Disease Visit [facility] Start: 09-21-2025 Plain X-ray abdomen Acute Abdomen In c Chest [facility] Start: 09-21-2025 End: 09-21-2025 Emergency department patient visit Departed Emergency -Emergency Department Work Phone: Start: 09-11-2025 End: 09-11-2025 Patient encounter procedure 09/11/2025 3:15 PM EDT Office Visit Podiatry [address] [place] [address] Maria Teresa John [address] [place], [place] [id number] Foot pain, left [M79.672]; Acute left ankle pain [M25.572] Podiatry Comment on above: Foot pain, left [M79 .672]; Acute left ankle pain [M25.572] Start: 09-10-2025 US Pelvis transvaginal [facility] Start: 09-10-2025 [facility] Start: 09-04-2025 [facility] Start: 08-21-2025 End: 08-21-2025 Patient encounter procedure 08/21/2025 2:20 PM EDT Office Visit [facility] [address] [place] [address] Felipa Torres APRN.GEAR MACHINIST [address] [place] [address] follow up 1 week Family [facility] Comment on above: follow up 1 week Start: 08-10-2025 [facility] Start: 08-06-2025 End: 08-06-2025 Patient encounter procedure 08/06/2025 11:00 AM EDT Office Visit [facility] Dhillon [address] [place] [address] Di Arreola APRN.GEAR MACHINIST [address] [place] [address] one month f/up [facility] Comment on above: one month f/up Start: 07-30-2025 Influenza vaccination [facility] Start: 07-22-2025 PAP TESTING PAP TESTING [facility] Start: 07-22-2025 Screening for malignant neoplasm of cervix Cervical Cancer Screening [facility] Start: 05-29-2025 End: 05-29-2025 Patient encounter procedure 05/29/2025 10:00 AM EDT Office Visit [facility] Mele Dhillon [address] [place] [address] Di Arreola, BREANA.GEAR MACHINIST [address] [place] [address] 1 month follow up [facility] Mele Dhill[facility] Comment on above: 1 month follow up Start: 05-22-2025 End: 05-22-2025 Patient encounter procedure 05/22/2025 10:50 AM EDT Office Visit OB/Gynecology [address] [place] [address] Mauricio Fink MD [address] [place] [address] Right lower quadrant abdominal pain [R10.31] OB/Gynecology Comment on above: Right lower quadrant abdominal pain [R10.31] Start: 05-01-2025 End: 07-31-2025 Comprehensive metabolic 2000 panel - Serum or Plasma [facility] Comment on above: Expected: 05/01/2025 , Expires: 07/31/2025 Start: 05-01-2025 End: 07-31-2025 Insulin [Units/volume] in Serum or Plasma [facility] Comment on above: Expected: 05/01/2025 , Expires: 07/31/2025 Start: 05-01-2025 End: 07-31-2025 Lipase [Enzymatic activity/volume] in Serum or Plasma [facility] Comment on above: Expected: 05/01/2025 , Expires: 07/31/2025 Start: 05-01-2025 End: 07-31-2025 Thyrotropin [Units/volume] in Serum or Plasma [facility] Comment on above: Expected: 05/01/2025 , Expires: 07/31/2025 Start: 05-01-2025 End: 05-01-2025 Patient encounter procedure 05/01/2025 10:40 AM EDT Office Visit Family [facility] Dhillon [address] [place] [address] Di Arreola APRN.GEAR MACHINIST [address] [place] [address] stomach pain (HAS NOT BEEN SEEN SINCE 10/13/22) [facility] Comment on above: stomach pain (HAS NO T BEEN SEEN SINCE 10/13/22) Start: 07-30-2024 Covid-19 Vaccine ( season) Covid-19 Vaccine ( season) [facility] Start: 07-30-2024 Influenza vaccination Influenza Vacc ine (#1) [facility] Start: 2024 HPV Vaccine (1 - 3-dose SCDM series) HPV Vaccine (1 - 3-dose SCDM series) [facility] Start: 10-13-2023 ANNUAL PCP TEAM CHRONIC DISEASE VISIT ANNUAL PCP TEAM CHRONIC DISEASE VISIT [facility] Start: 09-25-2023 ANNUAL PCP TEAM CHRONIC DISEASE VISIT ANNUAL PCP TEAM CHRONIC DISEASE VISIT [facility] Start: 09-04-2023 ANNUAL PCP TEAM CHRONIC DISEASE VISIT ANNUAL PCP TEAM CHRONIC DISEASE VISIT [facility] Start: 07-30-2023 Influenza vaccination [facility] Start: 07-22-2023 Screening for malignant neoplasm of cervix Cervical Cancer Screening [facility] Start: 06-08-2023 Adult depression screening assessment DEPRESSION SCREENING [facility] Start: 06-08-2023 ANNUAL PCP TEAM CHRONIC DISEASE VISIT ANNUAL PCP TEAM CHRONIC DISEASE VISIT [facility] Start: 05-25-2023 ANNUAL PCP TEAM CHRONIC DISEASE VISIT ANNUAL PCP TEAM CHRONIC DISEASE VISIT [facility] Start: 05-13-2023 ANNUAL PCP TEAM CHRONIC DISEASE VISIT ANNUAL PCP TEAM CHRONIC DISEASE VISIT [facility] Start: 04-30-2023 ANNUAL PCP TEAM CHRONIC DISEASE VISIT ANNUAL PCP TEAM CHRONIC DISEASE VISIT [facility] Start: 04-22-2023 ANNUAL PCP TEAM CHRONIC DISEASE VISIT ANNUAL PCP TEAM CHRONIC DISEASE VISIT [facility] Start: 04-09-2023 ANNUAL PCP TEAM CHRONIC DISEASE VISIT ANNUAL PCP TEAM CHRONIC DISEASE VISIT [facility] Start: 10-28-2022 End: 11-11-2022 Influenza virus A and B RNA and SARS-CoV-2 (COVID-19) N gene panel - Respiratory specimen by VIVIAN with probe detection [facility] Work Phone: Comment on above: Expected: 10/28/2022 , Expires: 11/11/2022 Start: 07-30-2022 [facility] Work Phone: Start: 07-30-2022 Influenza vaccination [facility] Start: 07-16-2022 End: 09-15-2022 KEHINDE BY IFA WITH REFLEX [facility] Work Phone: Comment on above: Expected: 07/16/2022 , Expires: 09/15/2022 Start: 07-16-2022 End: 09-15-2022 Cobalamin (Vitamin B12) [Mass/volume] in Serum or Plasma [facility] Work Phone: Comment on above: Expected: 07/16/2022 , Expires: 09/15/2022 Start: 07-16-2022 End: 09-15-2022 Folate [Mass/volume] in Serum or Plasma [facility] Work Phone: Comment on above: Expected: 07/16/2022 , Expires: 09/15/2022 Start: 07-16-2022 End: 09-15-2022 Pyridoxine [Mass/volume] in Serum or Plasma [facility] Work Phone: Comment on above: Expected: 07/16/2022 , Expires: 09/15/2022 Start: 06-19-2022 Incision & drainage abscess simple/single DRAINAGE OF SKIN ABSCESS [facility] Work Phone: Start: 05-09-2022 PAP TESTING PAP TESTING [facility] Start: 10-14-2021 INJECTION, Provider: Fred Murphy, Status: Pen, Time: 2:45 PM INJECTION, Provider: Fred Murphy, Status: Pen, Time: 2:45 PM [id number] Work Phone: Start: 08-05-2021 FUV, Provider: Fred Murphy, Status: Pen, Time: 2:30 PM FUV, Provider: Fred Murphy, Status: Pen, Time: 2:30 PM [id number] Work Phone: Start: 2021 INJECTION, Provider: Fred Murphy, Status: Pen, Time: 1:45 PM INJECTION, Provider: Fred Murphy, Status: Pen, Time: 1:45 PM [id number] Work Phone: Start: 07-08-2021 INJECTION, Provider: Manny Daniel, Status: Pen, Time: 2:15 PM INJECTION, Provider: Manny Daniel, Status: Pen, Time: 2:15 PM [id number] Work Phone: Start: 06-12-2021 Covid-19 Vaccine (2 - Moderna series) Covid-19 Vaccine (2 - Moderna series) [facility] Start: 05-15-2021 COVID-19 VACCINE (2 - Moderna series) COVID-19 VACCINE (2 - Moderna series) [facility] Start: 2016 Hepatitis B Vaccine (1 of 3 - 19+ 3-dose series) Hepatitis B Vaccine (1 of 3 - 19+ 3-dose series) [facility] Start: 2016 ONE PNEUMOVAX PRIOR TO AGE 65 ONE PNEUMOVAX PRIOR TO AGE 65 [facility] Start: 2016 Pneumococcal vaccination Pneumococcal Vaccine (1 of 2 - PCV) [facility] Start: 2015 HEPATITIS C SCREENING HEPATITIS C [facility] Start: 2015 Hepatitis C screening Hepatitis C [facility] Start: 2015 HIV SCREENING HIV SCREENING [facility] Start: 2015 HIV screening HIV Screening [facility] Start: 2015 SPIROMETRY SPIROMETRY [facility] Start: 2011 PEDS TO ADULT TRANSITION ANNUAL ASSESSMENT PEDS TO ADULT TRANSITION ANNUAL ASSESSMENT [facility] Start: 2009 Adult depression screening assessment DEPRESSION SCREENING [facility] Start: 2009 PEDS TO ADULT TRANSITION INITIAL DISCUSSION PEDS TO ADULT TRANSITION INITIAL DISCUSSION [facility] Start: 2008 HPV VACCINE (1 - 2-dose series) HPV VACCINE (1 - 2-dose series) [facility] Start: 2007 MENINGOCOCCAL B: Consider based on risk (1 of 2 - Risk Bexsero 2-dose series) MENINGOCOCCAL B: Consider based on risk (1 of 2 - Risk Bexsero 2-dose series) [facility] Start: 2006 HPV Vaccine (1 - 2-dose series) HPV Vaccine (1 - 2-dose series) [facility] Start: 2003 PNEUMOCOCCAL (1 - PCV) PNEUMOCOCCAL (1 - PCV) [facility] Start: 2003 Pneumococcal vaccination Pneumococcal Vaccine (1 - PCV) [facility] Start: 1997 HEPATITIS B (1 of 3 - 3-dose series) HEPATITIS B (1 of 3 - 3-dose series) [facility] Start: 1997 Hepatitis B Vaccine (1 of 3 - 3-dose series) Hepatitis B Vaccine (1 of 3 - 3-dose series) [facility] Chlamydia trachomatis+Neisseria gonorrhoeae DNA [Presence] in Unspecified specimen by VIVIAN with probe detection GC/CHLAMYDIA DNA DET Lab Routine Encounter for gynecological examination (general) (routine) without abnormal findings Screen for STD (sexually transmitted disease) 07/22/2022 1:45 PM EDT [facility] Work Phone: End: 11-12-2023 Diagnostic mammography computer-aided detcj uni [facility] DIAGNOSTIC RT Radiology Routine Breast pain 1 Occurrences starting 10/13/2022 until 11/12/2023 [facility] Work Phone: Comment on above: 1 Occurrences starti ng 10/13/2022 until 11/12/2023 End: 07-16-2023 EMG(NEURO/NI) EMG(NEURO/NI) EMG Routine Paresthesia Leg weakness, bilateral Right arm numbness Lower extremity numbness 1 Occurrences starting 07/16/2022 until 07/16/2023 [facility] Work Phone: Comment on above: 1 Occurrences starti ng 07/16/2022 until 07/16/2023 End: 05-09-2023 Hepatobil syst imag inc gb w/pharma intervenj NM HEPATOBILIARY W EF AND/OR RX Radiology Routine Diarrhea, unspecified type Abdominal cramping Right upper quadrant pain 1 Occurrences starting 04/09/2022 until 05/09/2023 [facility] Work Phone: Comment on above: 1 Occurrences starti ng 04/09/2022 until 05/09/2023 PAP FLUID CERVICAL SCREENING PAP FLUID CERVICAL SCREENING Lab Routine Screening for cervical cancer Encounter for screening for human papillomavirus (HPV) 07/22/2022 1:45 PM EDT [facility] Work Phone: Patient Education [facility] Work Phone: Patient referral [facility] Work Phone: PT PLAN OF CARE CERTIFICATION PT PLAN OF CARE CERTIFICATION Procedures Routine Acute pain of right shoulder Ordered: 04/23/2022 [facility] Work Phone: Comment on above: Ordered: 04/23/2022 PT PLAN OF CARE CERTIFICATION PT PLAN OF CARE CERTIFICATION Procedures Routine Acute pain of right shoulder Ordered: 05/26/2022 [facility] Work Phone: Comment on above: Ordered: 05/26/2022 End: 08-15-2023 Radex spine lumbosacral 2/3 views XR LUMBAR GENERAL 3V AP/LAT/L5-S1 Radiology Routine Leg weakness, bilateral Lower extremity numbness 1 Occurrences starting 07/16/2022 until 08/15/2023 [facility] Work Phone: Comment on above: 1 Occurrences starti ng 07/16/2022 until 08/15/2023 End: 11-12-2023 Us breast uni real time with image limited US BREAST LTD RT Radiology Routine Breast pain 1 Occurrences starting 10/13/2022 until 11/12/2023 [facility] Work Phone: Comment on above: 1 Occurrences starti ng 10/13/2022 until 11/12/2023 XR ELBOW GENERAL 2V AP/LAT RIGHT XR ELBOW GENERAL 2V AP/LAT RIGHT Radiology Routine Right elbow pain 06/08/2022 3:37 PM EDT [facility] Work Phone: End: 05-31-2026 XR Finger - left AP and Lateral and oblique XR DIGIT GENERAL 3V FRONTAL/LAT/OBL LEFT Radiology Routine Finger injury, left, sequela 1 Occurrences starting 05/01/2025 until 05/31/2026 [facility] Work Phone: Comment on above: 1 Occurrences starti ng 05/01/2025 until 05/31/2026 XR Finger - left AP and Lateral and oblique XR DIGIT GENERAL 3V FRONTAL/LAT/OBL LEFT Radiology Routine Finger injury, left, sequela 05/01/2025 12:03 PM EDT [facility] [id number] Work Phone: [facility] NEGATED: Highlighted row has been ruled out! Planned Goals not documented [id number] Work Phone: Immunizations Immunization Date Immunization Notes Care Provider Lulu galarza 11-16-2021 tetanus toxoid, redu jose david diphtheria toxoid, and acellular pertussis vaccine, adsorbed Sophie Avalos MD Work Phone: [facility] 04-17-2021 COVID-19 original va ccine, full dose, monovalent (MODERNA) Di Arreola CHOKE REAM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 Work Phone: [facility] 09-12-2020 influenza, injectabl e, quadrivalent, contains preservative Sophie Avalos MD Work Phone: [facility] 09-12-2020 influenza virus vacc ine, unspecified formulation Gia Colon CHOKE REAM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 Work Phone: [facility] 08-27-2018 influenza, injectabl e, quadrivalent, preservative free Sophie Avalos MD Work Phone: [facility] 08-17-2016 influenza, seasonal, injectable, preservative free Sophie Avalos MD Work Phone: [facility] 07-01-2016 meningococcal oligosaccharide (groups A, C, Y and W-135) diphtheria toxoid conjugate vaccine (MCV4O) Sophie Avaols MD Work Phone: [facility] 10-15-2014 influenza, seasonal, injectable Sophie Avalos MD Work Phone: [facility] 09-28-2012 influenza, seasonal, injectable, preservative free Sophie Avalos MD Work Phone: [facility] 09-17-2008 influenza virus vacc ine, live, attenuated, for intranasal use Sophie Avalos MD Work Phone: [facility] 10-21-2007 influenza, seasonal, injectable, preservative free Sophie Avalos MD Work Phone: [facility] 12-02-2006 influenza, seasonal, injectable Sophie Avalos MD Work Phone: [facility] 10-04-2006 influenza, seasonal, injectable Sophie Avalos MD Work Phone: [facility] Payers Date Payer Category Payer Self-pay [id number] 2025 Medicare [id number] 2025 Medicaid PENDING 2017 Medicaid [employer] [place] [id number] 2017-Present [phone] [address] [address] [place] [address] Medicaid [id number] 2017 Medicaid [id number] 2016 Medicaid [id number] Unknown [id number] Unknown [id number] Unknown [id number] Unknown Unknown [id number] Unknown 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 General X-ray: Exam(s) Completed: Upper Extremity X- Ray(s): Fingers/Thumb, left PERIPHERAL IV DATA: Not applicable SIGNED BY: RT Bianca([place]) May 01, 2025 11:54 AM documented in this encounterBarney Children'S Medical Center06-03-2025 NoteHNO ID: [id number] Author: ROOSEVELT OLIVAS RT(R) Service: Radiology Author [...] PATIENT PRESENTS WITH AN IMPLANTABLE OR ATTACHED PLANT SCIENCES PROFESSOR: No RADIOLOGY DEPARTMENT: General X-ray: Exam(s) Completed: Upper Extremity X-Ray(s): Fingers/Thumb, left PERIPHERAL IV DATA: Not applicable SIGNED BY: RT Bianca([place]) May 01, 2025 11:54 [facility]06-03-2025 Telephone encounter Note* Telephone Encounter - Yoel Colon - 05/01/2025 12:03 PM EDT Left VM to schedule with oral surgery. [facility]06-03-2025 Miscellaneous Notes* Telephone Encounter - Yoel Colon - 05/01/2025 12:03 PM EDT Left VM to schedule with oral surgery. documented in this encounterBarney Children'S Medical Center06-03-2025 Instructions* Patient Instructions* Di Arreola APRN.BAKARI - 05/01/2025 11:30 AM EDT Get the labwork done. Get the xray done. Continue the same medications. We'll fax the referral to Dr. Granados's office (GI). We'll fax referral to local oral surgeon. 6. Recheck in 1 month. documented in this encounterBarney Children'S Medical Center06-03-2025 NoteHNO ID: [id number] Author: DI ARREOLA APRN.BAKARI Service: ? Author [...] Recently moved back to the area from [place] after being gone for about 2 years. Needs medication refills. Seizures. On Keppra. No seizures for 5-6 years. Was following with neurology in [place]. Recently released back to driving. Abdominal pain: [...] Smoking status: Some Days (more content not included)...[facility]06-03-2025 History of Present illness Narrative* Di Arreola APRN.GEAR MACHINIST - 05/01/2025 10:55 AM EDT This is a 29 year old female who presents today with: Patient presents with: Acute Visit: RLQ pain intermittent since oophorectomy in Jul/Aug HISTORY OF PRESENT ILLNESS: Per Farmer is a 29 year old female. Patient presents with: Acute Visit: RLQ pain intermittent since oophorectomy in Jul/Aug Recently moved back to the area from [place] after being gone for about 2 years. Needs medication refills. Seizures. On Keppra. No seizures for 5-6 years. Was following with neurology in [place]. Recently released back to driving. Abdominal pain: [...] Never had follow-up prior to returning to [place]. - CONSULT TO GYNECOLOGY 2. Depression, unspecified [...] intermittent blood. Referral to GI. She requests [place]. - CONSULT TO GASTROENTEROLOGY Discussed treatment plan and patient voices understanding. Patient's questions answered appropriately. Medications and potential side effects were discussed and patient voices understanding. Return to the office as scheduled or as needed for worsening/no improvement. Di Arreola APRN.GEAR MACHINIST documented in this encounterBarney Children'S Medical Center06-02-2025 Telephone encounter Note * Telephone [...] back pain Protocols used: Abdominal Pain - [id number] [facility]06-02-2025 Miscellaneous Notes* Telephone Encounter - [...] back pain Protocols used: Abdominal Pain - [id number] documented in this encounterBarney Children'S Medical Center09-14-2023 Miscellaneous Notes* Telephone Encounter - Felipa Bah LPN - 08/12/2023 3:27 PM EDT Faxed to number provided. * Telephone Encounter - Sophie Avalos MD - 08/12/2023 3:09 PM EDT done * Telephone Encounter - Ira Finn RN - 08/12/2023 2:56 PM EDT Estephanie at [facility] in [place], reports they received 2 Rx's that do not make sense, for diabeticsupplies. Reports the refills do not match, the number of times a day the patient tests does not match. Please correct and resend to Pended to match 2 x's day, and 11 refills, and set to print. Appears in previous message patient wanted rx's sent to [facility] in [facility], which is the same place that called. documented in this encounterBarney Children'S [facility] Center09-14-2023 Miscellaneous Notes* Telephone Encounter - Keely Ward LPN - 08/12/2023 11:38 AM EDT Anjel--10/13/22 Nov--nothing scheduled Last refill--09/25/22 100 with 1 refill Last labs--07/16/22 documented in this encounterBarney Children'S Medical Center04-03-2023 Miscellaneous Notes* Telephone Encounter - [...] mouth once daily. Patient has moved to [place]. Advised to establish care with PCP in [...] you. Maame Rabago RN documented in this encounterBarney Children'S Medical Center03-11-[address] Garza [facility] February 06, 2023 11:21pm Note Date/Time February 06, 2023 9:2 2pm [facility] Medical Records Department [address] [place] [address] Emergency Department Summary 02/06/23 MR#: [id number] Acct: [id number] Name: PER FARMER Rep #:[id number] : 1995 27 From: Pola Garza MD [...] Prior similar symptoms: Yes Recent [facility] Medical History ADHD Anemia Anxiety [...] your Primary Care Provider. Call [facility] ([phone]) or report to the closest Emergency Room. Call 911 if necessary. 02/06/232320 <Electronically signed by Pola Garza MD> Cosigner Signature (if applicable): CC: Dr. Sophie Avalos MD ~ Signed [facility] Work Phone: 1(799) 471-789402-21-2023 NoteHNO ID: [id number] Author: Cecilia Craig PA-C Service: ? Author Type: Physician Court Manager Type: Progress Notes Filed: 01/19/2023 1:08 PM Note Text: Cecilia Craig PA-C Hepatobiliary Surgery 1 [facility], [address] [place] [address] SUBJECTIVE Per Farmer is a 27 year [...] the plan. Cecilia Craig PA-C 01/19/2023 1:01 [facility]02-21-2023 History of Present illness Narrative* Cecilia Craig PA-C - 01/19/2023 1:00 PM EST Images from the original note were not included. Cecilia Craig PA-C Hepatobiliary Surgery 1 [facility], [address] [place] [address] SUBJECTIVE Per Farmer is a 27 year [...] PA-C 01/19/2023 1:01 PM documented in this encounterBarney Children'S Medical Center02-02-2023 NoteHNO ID: [id number] Author: Denice Vo APRN.CRNA Service: Anesthesiology Author Type: Nurse Outbound Sales Consultant Type: Anesthesia Procedure Notes Filed: 12/31/2022 10:49 AM Note Text: ANESTHESIOLOGY PROCEDURE NOTE PIV General Information Procedure Start Time/Medication Administration: 12/31/2022 10:00 AM Patient Location: OR Staffing FRANCHISE SALES DIRECTOR: Denice Vo APRN.FRANCHISE SALES DIRECTOR Performed by: TIFFANIE Preparation Sterility Preparation: hand hygiene performed prior to procedure, surgical cap used, mask used, skin prep agent completely dried prior to procedure Site Prep: Chloraprep Procedure Details Indication: need for IV access Needle Size/Type: 20 gauge angiocath Orientation: Right Location: Antecubital SIGNATURE: Denice Vo APRN.FRANCHISE SALES DIRECTOR PATIENT NAME: Per Farmer DATE: December 31, 2022 TIME: 10:48 AM CSN: [id number]. [facility]23 NoteHNO ID: [id number] Author: Denice Vo APRN.CRNA Service: Anesthesiology Author Type: Nurse Outbound Sales Consultant Type: Anesthesia Procedure Notes Filed: 12/31/2022 10:48 AM Note Text: ANESTHESIOLOGY PROCEDURE NOTE Airway General Information Procedure Start Time/Medication Administration: 12/31/2022 10:08 AM Patient location during procedure: OR Timeout Performed Pre-procedure: timeout performed Consent Obtained: Yes Patient identity confirmed: arm band and patient Staffing FRANCHISE SALES DIRECTOR: Denice Vo APRN.FRANCHISE SALES DIRECTOR Performed by: TIFFANIE Indications and Patient Condition [...] attempts at approach: 1 SIGNATURE: Denice Vo APRN.FRANCHISE SALES DIRECTOR PATIENT NAME: Per Farmer DATE: December 31, 2022 TIME: 10:46 AM CSN: [id number]. Charles [facility]01-30-2023 History of Present illness Narrative* Isabella Domingo LPN - 12/28/2022 10:18 AM EST Patient identified by name and date of . Per Farmer is here for a Depo Provera injection. Patient brought medication. Date last injected: 07/22/2022 Depo-Provera, 150 mg, administered IM left deltoid, Lot # [id number], expiration date 09/28/2024. Depo-Provera was given without incident. Date of last menses: No LMP recorded (lmp unknown). Patient has had an injection. Irregular bleeding - Yes Menses ceased - No STD prevention discussed: Yes Patient instructed to return to clinic in 12 weeks. [email or web address] Provider Jakub Roldan was present in office at time of injection. Isabella Domingo LPN documented in this encounterBarney Children'S Medical Center01-26-2023 Instructions* Patient Instructions* Rupal Gibson APRN.BAKARI - 12/24/2022 11:44 AM EST PATIENT PREOPERATIVE INSTRUCTIONS Juaquin Walsh MD has scheduled you for your procedure at this surgery center: [facility]: [phone], [address] [place], [place] [address] Please read below carefully for your personalized [...] - Stop Vitamin E, fish oil, Ginko, [place]'s Wort, flax seed oil, multivitamins, CBD oil, [...] surgery. Rupal Gibson APRN.BAKARI documented in this encounterBarney Children'S Medical Center01-26-2023 History and physical note * Rupal Gibson APRN.GEAR MACHINIST - 12/24/2022 11:20 AM EST HISTORY AND [...] Negative for: dysuria, hematuria and renal failure. HAND BRIM IRONER: Positive for: vaginal bleeding. Endocrine: Pre diabetes [...] or any previous visit (from the past 94384 hour(s)). Assessment Patient has the following medical [...] Initiated: No labs ordered per surgeon in [facility] Instructions Given to Patient: Instructions located in the after visit summary. Patient given verbal and written preop instructions and voices comprehension and compliance. SIGNATURE: Rupal Gibson APRN.CNP PATIENT NAME: Per Farmer DATE: December 23, 2022 TIME: 12:10 PM PAGER/CONTACT #: documented in this encounterBarney Children'S Medical Center12-29-2022 Miscellaneous Notes* Telephone Encounter - [...] a nebulizer request. Please fax order to [phone] or send escript. Chelsea Sales LPN documented in this encounterBarney Children'S Medical Center12-27-2022 Miscellaneous Notes* Telephone Encounter - [...] medications. Pending rx for items. Patient uses [facility] for her pharmacy. Fax for DME section is [phone] to fax nebulizer rx. Please advise Patient [...] you. Jean-Claude Newell LPN documented in this encounterBarney Children'S Medical Center12-13-2022 NoteHNO ID: [id number] Author: Juaquin Walsh MD Service: ? Author Type: Physician Type: Progress Notes Filed: 11/10/2022 11:02 AM Note Text: Patient referred by: Sophie Avalos [address] [facility] [address] HPI: This is a new patient consult [...] use: No Current Outpatient Medications Medication Sig fkbrubdcnlshagj-PC-egosPBTqrkm (CAPMIST DM) 60-15-400 mg tab Take 1 [...] which included preparing to see the patient, ofie-zx-glbo patient care, completing clinical documentation, obtaining and/or [...] she be an exce (more content not included)...[facility]12-13-2022 Instructions* Patient Instructions* Juaquin Walsh MD - 11/10/2022 10:54 AM EST Office will call with date and time for surgery documented in this encounterBarney Children'S Medical Center12-13-2022 History of Present illness Narrative* Juaquin Walsh MD - 11/10/2022 10:42 AM EST Patient referred by: Sophie Avalos [address] [facility] [address] HPI: This is a new patient consult [...] use: No Current Outpatient Medications Medication Sig kvblvrvluiyuwjh-DO-vmjzSLIeezb (CAPMIST DM) 60-15-400 mg tab Take 1 [...] which included preparing to see the patient, ehik-wj-sjgp patient care, completing clinical documentation, obtaining and/or [...] This office note has been created using [employer] biometric[employer], a speech recognition software program, and may contain errors including punctuation, grammar, spelling, gender, and inappropriate words or phrases that pertain to the sytem. documented in this encounterBarney Children'S Medical Center11-30-2022 History of Present illness Narrative* Sweetie Dorsey APRN.GEAR MACHINIST - 10/28/2022 1:52 PM EST Subjective Cough Associated symptoms include ear pain (right), headaches and myalgias. Pertinent negatives include no chills and no sore throat. Per Farmer is a 27 year old female who presents with 2 days of cough, diarrhea, bodyaches and headaches. She has had a stuffy nose. 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 [...] Discussed expected course of illness Sweetie Dorsey APRN.CNP Treatment for Viral Upper Respiratory Tract Infections [...] fluids help open respiratory and sinus passages [place] Nasal [place] may offer relief of nasal and head [...] worse rather than better documented in this encounterBarney Children'S Medical Center11-15-2022 History of Present illness Narrative* [...] is more consistent. Was using already Rx'd [place], Naproxen and Tizanidine with no relief. Does [...] mammo. Consider surgical referral if persists. - [facility] RT - US BREAST LTD RT Sophie Avalos MD documented in this encounterBarney Children'S Medical Center11-03-2022 Miscellaneous Notes* Telephone Encounter - Gia Colon APRN.CNP - 10/01/2022 8:45 AM EDT Letter posted to patient's mychart. Gia Colon APRN.CNP * Telephone Encounter - Brooke Lezama Ma - 09/28/2022 9:04 AM EDT Please see pt message. Can you give her a letter and post to [facility]. Pt was seen on 09/25/22. Brooke Lezama Ma documented in this encounterBarney Children'S Medical Center10-28-2022 Instructions* Patient Instructions* Gia Colon APRN.CNP - 09/25/2022 12:31 PM EDT Make yourself a rice sock for pain relief. documented in this encounterBarney Children'S Medical Center10-28-2022 History of Present illness Narrative* [...] and the pain completely resolved. 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 2 [...] for pain or fever (specify). Rx by HAND BRIM IRONER pt reported ovary pain medroxyPROGESTERone (DEPO-PROVERA) 150 [...] Prediabetes - ICD9: 790.29, ICD10: R73.03 - [facility] Gia Colon APRN.BAKARI documented in this encounterBarney Children'S Medical Center10-21-2022 History of Present illness Narrative* [...] KaplanT. Guanako Odell DO documented in this encounterBarney Children'S Medical Center10-08-2022 History of Present illness Narrative* [...] 05, 2022 9:32 AM documented in this encounterBarney Children'S Medical Center09-02-2022 Instructions* Patient Instructions* Ruth Turner [...] breath, inability to swallow. documented in this encounterBarney Children'S Medical Center09-02-2022 History of Present illness Narrative* Ruth VegasBREANA plasencia.[facility] - 07/31/2022 12:27 PM EDT Images from the original note were not included. Subjective The history is provided by the patient. No central melt specialist was used. HPI Per Farmer is a 27 year old female who presents today for CC of nasal congestion, body aches, headache and diarrhea. She is also having lower right abdominal discomfort. This started 3 days ago. She was seen yesterday in [place] ED, negative for covid, and received fluids. [...] have confirmed and edited as necessary, the [facility] Review of Systems Constitutional: Positive for [...] evaluation. Ruth Turner APRN.BAKARI documented in this encounterBarney Children'S Medical Center08-24-2022 History of Present illness Narrative* Jakub Roldan APRN.CNP - 07/22/2022 12:45 PM EDT Crisis Nurse offered: Patient declines. Per is a 27 [...] L0 SAB0 IAB0 Ectopic0 Multiple0 Live Births0 Nuclear Equipment Operator History LMP: 03/29/2022 (LMP Unknown), Injection Age at Menarche: Age at First : Age at Menopause: Nuclear Equipment Operator History Comments: Sexual Activity: Not Currently; No partner data on record; Hx sexual activity Contraception: No contraception data on record PAST MEDICAL HISTORY Diagnosis Date Anemia Asthma Deafness Depression Developmental delay alcohol syndrome Hearing impaired person, right Hypoglycemia disorder alcohol syndrome. PTSD (post-traumatic stress disorder) Seizures ([facility]) 12/01/2017 Trichomoniasis 2019 treated PAST SURGICAL HISTORY [...] external genitalia normal, normal Bartholin's glands, urethra, Magnet's glands, no vulvar lesions, no cervical lesions, [...] one year or sooner as needed Jakub Roldan APRN.BAKARI documented in this encounterBarney Children'S Medical Center08-19-2022 Miscellaneous Notes* Telephone Encounter - Latonya Llamas APRN.CNP - 07/17/2022 12:34 PM EDT Consult for general surgery placed - On HIDA scan EF low - Latonya Llamas APRN.BAKARI documented in this encounterBarney Children'S Medical Center08-18-2022 History of Present illness Narrative* [...] 30 min post inj per Dr. Ernie Daley. 8 ounces of Ensure Plus given PO at 11:55 for EF. ADMINISTRATION TIME: PATIENT DISCHARGED TO: Ambulatory patient, left [place] department area. A Diagnostic radioactive procedure has taken place, with no further precautions necessary other than routine body substance precautions. More information regarding radiation safety can be found usingZappedys link: [email or web address] 20Diagnostic%20Nuclear%20Medicine%20Procedures.pdf SIGNATURE: KEVIN Verduzco PATIENT NAME: Per Farmer DATE: July 16, 2022 TIME: 10:32 AM PAGER/CONTACT #: documented in this encounterBarney Children'S Medical Center08-18-2022 History of Present illness Narrative* Brandi Oconnell APRN.GEAR MACHINIST - 07/16/2022 8:00 AM EDT Images from the original note were not included. [facility] [place] New Patient visit New Patient Consultation 2022 [...] every 6 hours as needed. Rx by HAND BRIM IRONER pt reported ovary pain Lancets lancets Test [...] Abs Lymph 1.00 - 4.00 k/uL 2.28 [place]% % 6.7 Abs [place] <0.87 k/uL 0.56 Eosin% % 1.9 Abs [...] Staff Review Reviewed by Carolina Up MD ([id number]) COVID 19 Source IT SUPPORT ANALYST UPPER RESPIRATORY TRACT SWAB Influenza A PCR Negative for Influenza A by RT PCR Influenza B PCR Negative for Influenza B by RT PCR COVID 19 Result IT SUPPORT ANALYST Negative for COVID19 (SARS CoV2) by RT-PCR [...] CONSULT TO NEUROLOGY EMG(NEURO/NI) EMG(NEURO/NI) Brandi Oconnell APRN.GEAR MACHINIST I spent a total of 55 minutes on the date of the service which included preparing to see the patient, aabb-wn-ucwu patient care, completing clinical documentation, obtaining and/or reviewing separately obtained history, performing a medically appropriate examination, counseling and educating the pat ient/family/caregiver, and ordering medications, tests, or procedures. documented in this encounterBarney Children'S Medical Center08-08-2022 History of Present illness Narrative* [...] 06, 2022 2:38 PM documented in this encounterBarney Children'S Medical Center08-08-2022 Miscellaneous Notes* Telephone Encounter - Jacobjoshua Montero Ma - 07/06/2022 11:45 AM EDT Spoke to [place] police department, gave information, they are sending someone for a welfare check. Jacob Montero SHIPPING ROOM SUPERVISOR [facility] * Telephone Encounter - Yisel Ewing PA-C - 07/06/2022 11:28 AM EDT Called Per to discuss her Maestro Markethart message sent to Latonya Llamas CNP who [...] for a Wellness check. documented in this encounterBarney Children'S Medical Center07-12-2022 Miscellaneous Notes* Telephone Encounter - [...] one to two weeks documented in this encounterBarney Children'S Medical Center07-11-2022 History of Present illness Narrative* [...] 08, 2022 3:30 PM documented in this encounterBarney Children'S Medical Center07-11-2022 History of Present illness Narrative* [...] and had negative emg. Has labs from [facility] recently for same as well. States she [...] every 6 hours as needed. Rx by HAND BRIM IRONER pt reported ovary pain albuterol HFA (VENTOLIN [...] See neuro Sophie Avalos documented in this encounterBarney Children'S Medical Center07-07-2022 History of Present illness Narrative* [...] pain. 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 Planned Interventions, Frequency, and Duration: 1x/week, 4 weeks Total Number of Visits Planned: 4 Patient to be seen for Neuromuscular re-education (12799);Therapeutic exercise (33455);Manual therapy (17300);Self-correction management (07156);Patient/Family/Caregiver Education PLAN FOR NEXT VISIT: Progress RTC [...] Total Treatment Time Minutes (timed/untimed): 45 Jarrett Gokul, PT documented in this encounterBarney Children'S Medical Center06-27-2022 History of Present illness Narrative* Di Arreola APRN.GEAR MACHINIST - 05/25/2022 1:04 PM EDT This is [...] alcohol syndrome. PTSD (post-traumatic stress disorder) Seizures ([facility]) 12/01/2017 Trichomoniasis 2019 treated PAST SURGICAL HISTORY [...] every 6 hours as needed. Rx by HAND BRIM IRONER pt reported ovary pain albuterol HFA (VENTOLIN [...] APRN.BAKARI This note was partially generated using [employer] voice recognition system. Note was reviewed for accuracy. There may be minor misspellings or grammar miscues with [place] voice recognition. documented in this encounterBarney Children'S Medical Center06-16-2022 History of Present illness Narrative* Mary Ann Stover PA-C - 05/14/2022 12:04 PM EDT Images from the original note were not included. This note was created using [employer]. Subjective Per Farmer is a 26 year [...] alcohol syndrome. PTSD (post-traumatic stress disorder) Seizures ([facility]) 12/01/2017 Trichomoniasis 2019 treated Current Outpatient Medications [...] every 6 hours as needed. Rx by HAND BRIM IRONER pt reported ovary pain albuterol HFA (VENTOLIN [...] 150 mg INTRAMUSCULAR every 12 weeks Jakub Roldan, CHOKE REAM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 150 mg at 04/24/22 1010 PAST SURGICAL [...] Mary Ann Stover PA-C documented in this encounterBarney Children'S Medical Center06-15-2022 Instructions* Patient Instructions* Di Arreola APRN.CNP - 05/13/2022 10:58 AM EDT 1. Light duty X 2 weeks. 2. Recheck in the office in 2 weeks. documented in this encounterBarney Children'S Medical Center06-15-2022 History of Present illness Narrative* [...] return to work. 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 Per patient, PT recommended if she returns [...] every 6 hours as needed. Rx by HAND BRIM IRONER pt reported ovary pain albuterol HFA (VENTOLIN [...] improvement. Di Arreola APRN.BAKARI documented in this encounterBarney Children'S Medical Center06-14-2022 History of Present illness Narrative* [...] 45 Jarrett Hodgson PT documented in this encounterBarney Children'S Medical Center06-02-2022 History of Present illness Narrative* [...] 30, 2022 2:48 PM documented in this encounterBarney Children'S Medical Center06-02-2022 History of Present illness Narrative* [...] nothing new. 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 Saw Di Arreola recently, [...] every 6 hours as needed. Rx by HAND BRIM IRONER pt reported ovary pain albuterol HFA (VENTOLIN [...] Level: 3 - Low documented in this encounterBarney Children'S Medical Center06-02-2022 History of Present illness Narrative* [...] 40 Jarrett Hodgson PT documented in this encounterBarney Children'S Medical Center05-27-2022 Miscellaneous Notes* Telephone Encounter - [...] Please call and advise. documented in this encounterBarney Children'S Medical Center05-27-2022 History of Present illness Narrative* Amy Mckay RN - 04/24/2022 10:02 AM EDT Patient identified by name and date of . Per Farmer is here for a Depo Provera injection. Patient brought medication. Date last injected: 01/30/22 Depo-Provera, 150 mg, administered IM left deltoid, Lot # [id number], expiration date 11/28/2023. Depo-Provera was given without incident. Date of last menses: Patient's last menstrual period was 03/29/2022 (lmp unknown). Irregular bleeding - No Menses ceased - Yes STD prevention discussed: Yes Patient instructed to return to clinic in 12 weeks +/- 5 days. [email or web address].[email or web address] Provider Jessica Engel MD was present in office at time of injection. Amy Mckay RN documented in this encounterBarney Children'S Medical Center05-26-2022 History of Present illness Narrative* [...] and guarding. She will benefit from [facility] to meet the goals established for [...] 10 weeks or less for improved QOL [place] in home exercise program. Planned Interventions, Frequency, and Duration: Current Frequency: 2x/week Duration: 4 weeks Total Number of Visits Planned: 8 Planned Treatment Interventions: Neuromuscular re-education (46964);Therapeutic exercise (24126);Manual therapy (62245);Self-correction management (10834);Patient/Family/Caregiver Education PLAN FOR NEXT VISIT: Assess reaction to HEP. Trial wall slides with towel. Patient demonstrates good understanding of plan of care and treatment. The above goals and plan of care were discussed and agreed upon by patient/family. SUBJECTIVE: Per Farmer is a 26 year old female seen today for R shoulder pain. 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 Take the ibuprofen routinely X 1 week. 2. Schedule physical therapy. 3. Recheck in the office in 1 week. documented in this encounterBarney Children'S Medical Center05-25-2022 History of Present illness Narrative* [...] alcohol syndrome. PTSD (post-traumatic stress disorder) Seizures ([facility]) 12/01/2017 Trichomoniasis 2019 treated PAST SURGICAL HISTORY [...] every 6 hours as needed. Rx by HAND BRIM IRONER pt reported ovary pain albuterol HFA (VENTOLIN [...] APRN.BAKARI This note was partially generated using [employer] voice recognition system. Note was reviewed for accuracy. There may be minor misspellings or grammar miscues with [employer] voice recognition. documented in this encounterBarney Children'S Medical Center05-12-2022 History of Present illness Narrative* [...] recent travel or antibiotic usage. Following with products mechanical design engineer for a cyst in her pelvis. Getting [...] Abs Lymph 1.00 - 4.00 k/uL 2.28 [place]% % 6.7 Abs [place] <0.87 k/uL 0.56 Eosin% % 1.9 Abs [...] Staff Review Reviewed by Carolina Up MD ([id number]) Topiramate 5.0 - 20.0 ug/mL <1.5 (L) [...] every 6 hours as needed. Rx by HAND BRIM IRONER pt reported ovary pain albuterol HFA (VENTOLIN [...] AND/OR RX Sophie Avalos documented in this encounterBarney Children'S Medical Center11-09-2021 Hospital Discharge instructions Patient Education [...] Lips or fingernails turning hernandez or blue [phone] [employer]. [address] [place] [address] 19891. All rights reserved. This information is not intended as a substitute for professional medical care. Always follow yourhealthcare professional's instructions. Follow Up Care 10/07/2021 09:34:56 With:JOAQUIN COLON DO Address: [address] [place] [address]- When:2-[address] [facility] 10-26-2021 History of Present illness Narrative* [...] 23, 2021 3:00 PM documented in this encounterBarney Children'S Medical Center10-06-2021 NotePROCEDURE DETAILS Preoperative Diagnosis: Pelvic pain Postoperative Diagnosis: Pelvic pain endometriosis Right endometrioma Surgeon: Fred Murphy Resident/Fellow/Other Court Manager: Lyn Ulloa Procedure: 1. Laparoscopy Diagnostic [...] Completion Last Updated: 03-Sep-2021 12:11 by Fred Murphy)[facility]10-06-2021 NoteHistory & Physical Reviewed: /Lactating: Are You [...] - Surgical Update < 30 days 03-Sep-2021 10:39[facility]10-06-2021 Note History & Physical Reviewed: /Lactating: Are [...] the risks are. Electronic Signatures: Yareli Mckay (PAC) (Signed 03-Sep-2021 10:40) Authored: History & Physical Reviewed, ERAS, Consent, Note Completion Last Updated: 03-Sep-2021 10:40 by Yareli Mckay ([facility]) References: 1. Data Referenced From Patient Profile - Preop v2 03-Sep-2021 09:39[facility]06-28-[facility] History of Present illness NarrativePatient here with [...] Was seen in the emergency room at [facility]. Ultrasound report reviewed along with labs. Patient is told that she should have her gallbladder removed although nothing indicated on ultrasound. 2 x 2 centimeter area seen on the right ovary possible solid mass versus thick fluid. No previous history noted. Todaypatient continues to complain of some low level pain 6-8 out of 10 seems calm at present.[facility] Work Phone: [phone]) 232-460506-08-2021 NoteAccession #: [id number] Date of Procedure: 05/06/2021 Pathologist: [facility], Cytology Date Reported: 05/15/2021 Date Received: 05/06/2021 Submitting Physician: MANNY DANIEL CNP FINAL CYTOLOGICAL INTERPRETATION A. THINPREP PAP CERVICAL: Specimen adequacy: SATISFACTORY FOR EVALUATION. Quality Indicator: Endocervical/transformation zone component is present. Quality Indicator: Partially obscured by cytolysis. General Categorization: NEGATIVE FOR INTRAEPITHELIAL LESION OR MALIGNANCY. This specimen has been analyzed by the ThinPrep Imaging System ([employer] an automated imaging and review system, which assists the laboratory in evaluating cells on ThinPrep Pap tests. Following automated imaging, selected matthews from every slide were reviewed by a laundry room attendant and/or pathologist. Electronically Signed Out By [facility], Cytology//LHP/SLD By the signature on this [...] Source of Specimen A: THINPREP PAP CERVICAL [facility] Department of Pathology [id number] [place], [place] [address]Comment on above:Performed By: #### C #### [facility] Cytology [id number] [facility]ly [facility] [id number] History of Present illness Narrative* Elena Bedolla [...] 03, 2021 2:21 PM documented in this encounterBar[facility] History of Present illness Narrative* Gaetano Connor Tech (Rt) - 01/22/2021 4:30 PM EST Radiology Service [...] 22, 2021 4:36 PM documented in this encounterBarney [facility] History of Past illness Narrative* Problem Noted Date Resolved Date Seizure-like activity 02/21/2020 02/22/2020 Last Assessment & Plan: Assessment: -Episodes starting age 8, stopped for 10-15 years, recurred in 2018 -Characterized by unresponsiveness, stiffness/shaking, lasting 10-60 mins per pt -Previous 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, dx PNES -Taking topamax 50 mg BID RESTROOMS OR LOUNGES MAID, unclear if for migraine or seizure -Admit for diagnosis -2E 02/20 PLAN: -vEEG -Admission labs: CBC, CMP, UTox,urine hCG -2 mg ativan for seizures >3 mins or >3 seizure in 8 hours -Reduce topamax to 50 mg daily, consider discontinuing while admitted Epilepsy 08/27/2018 08/30/2018 documented as of this encounter (statuses as of 04/09/2022) [facility] History of Past illness Narrative* Problem Noted Date Resolved Date Seizure-like activity 02/21/2020 02/22/2020 Last Assessment & Plan: Assessment: -Episodes starting age 8, stopped for 10-15 years, recurred in 2018 -Characterized by unresponsiveness, stiffness/shaking, lasting 10-60 mins per pt -Previous 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, dx PNES -Taking topamax 50 mg BID RESTROOMS OR LOUNGES MAID, unclear if for migraine or seizure -Admit for diagnosis -2E 02/20 PLAN: -vEEG -Admission labs: CBC, CMP, UTox,urine hCG -2 mg ativan for seizures >3 mins or >3 seizure in 8 hours -Reduce topamax to 50 mg daily, consider discontinuing while admitted Epilepsy 08/27/2018 08/30/2018 documented as of this encounter (statuses as of 04/22/2022) [facility] of [facility] illness Narrative* Problem Noted Date Resolved Date Seizure-like activity 02/21/2020 02/22/2020 Last Assessment & Plan: Assessment: -Episodes starting age 8, stopped for 10-15 years, recurred in 2018 -Characterized by unresponsiveness, stiffness/shaking, lasting 10-60 mins per pt -Previous 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, dx PNES -Taking topamax 50 mg BID RESTROOMS OR LOUNGES MAID, unclear if for migraine or seizure -Admit for diagnosis -2E 02/20 PLAN: -vEEG -Admission labs: CBC, CMP, UTox,urine hCG -2 mg ativan for seizures >3 mins or >3 seizure in 8 hours -Reduce topamax to 50 mg daily, consider discontinuing while admitted Epilepsy 08/27/2018 08/30/2018 documented as of this encounter (statuses as of 04/23/2022) [facility] of [facility] illness Narrative* Problem Noted Date Resolved Date Seizure-like activity 02/21/2020 02/22/2020 Last Assessment & Plan: Assessment: -Episodes starting age 8, stopped for 10-15 years, recurred in 2018 -Characterized by unresponsiveness, stiffness/shaking, lasting 10-60 mins per pt -Previous 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, dx PNES -Taking topamax 50 mg BID RESTROOMS OR LOUNGES MAID, unclear if for migraine or seizure -Admit for diagnosis -2E 02/20 PLAN: -vEEG -Admission labs: CBC, CMP, UTox,urine hCG -2 mg ativan for seizures >3 mins or >3 seizure in 8 hours -Reduce topamax to 50 mg daily, consider discontinuing while admitted Epilepsy 08/27/2018 08/30/2018 documented as of this encounter (statuses as of 04/24/2022) [facility] of [facility] illness Narrative* Problem Noted Date Resolved Date Seizure-like activity 02/21/2020 02/22/2020 Last Assessment & Plan: Assessment: -Episodes starting age 8, stopped for 10-15 years, recurred in 2018 -Characterized by unresponsiveness, stiffness/shaking, lasting 10-60 mins per pt -Previous 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, dx PNES -Taking topamax 50 mg BID RESTROOMS OR LOUNGES MAID, unclear if for migraine or seizure -Admit for diagnosis -2E 02/20 PLAN: -vEEG -Admission labs: CBC, CMP, UTox,urine hCG -2 mg ativan for seizures >3 mins or >3 seizure in 8 hours -Reduce topamax to 50 mg daily, consider discontinuing while admitted Epilepsy 08/27/2018 08/30/2018 documented as of this encounter (statuses as of 04/30/2022) [facility] of [facility] illness Narrative* Problem Noted Date Resolved Date Seizure-like activity 02/21/2020 02/22/2020 Last Assessment & Plan: Assessment: -Episodes starting age 8, stopped for 10-15 years, recurred in 2018 -Characterized by unresponsiveness, stiffness/shaking, lasting 10-60 mins per pt -Previous 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, dx PNES -Taking topamax 50 mg BID RESTROOMS OR LOUNGES MAID, unclear if for migraine or seizure -Admit for diagnosis -2E 02/20 PLAN: -vEEG -Admission labs: CBC, CMP, UTox,urine hCG -2 mg ativan for seizures >3 mins or >3 seizure in 8 hours -Reduce topamax to 50 mg daily, consider discontinuing while admitted Epilepsy 08/27/2018 08/30/2018 documented as of this encounter (statuses as of 04/30/2022) [facility] of [facility] illness Narrative* Problem Noted Date Resolved Date Seizure-like activity 02/21/2020 02/22/2020 Last Assessment & Plan: Assessment: -Episodes starting age 8, stopped for 10-15 years, recurred in 2018 -Characterized by unresponsiveness, stiffness/shaking, lasting 10-60 mins per pt -Previous 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, dx PNES -Taking topamax 50 mg BID RESTROOMS OR LOUNGES MAID, unclear if for migraine or seizure -Admit for diagnosis -2E 02/20 PLAN: -vEEG -Admission labs: CBC, CMP, UTox,urine hCG -2 mg ativan for seizures >3 mins or >3 seizure in 8 hours -Reduce topamax to 50 mg daily, consider discontinuing while admitted Epilepsy 08/27/2018 08/30/2018 documented as of this encounter (statuses as of 05/12/2022) [facility] Narrative* Problem Noted Date Resolved Date Seizure-like activity 02/21/2020 02/22/2020 Last Assessment & Plan: Assessment: -Episodes starting age 8, stopped for 10-15 years, recurred in 2018 -Characterized by unresponsiveness, stiffness/shaking, lasting 10-60 mins per pt -Previous 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, dx PNES -Taking topamax 50 mg BID RESTROOMS OR LOUNGES MAID, unclear if for migraine or seizure -Admit for diagnosis -2E 02/20 PLAN: -vEEG -Admission labs: CBC, CMP, UTox,urine hCG -2 mg ativan for seizures >3 mins or >3 seizure in 8 hours -Reduce topamax to 50 mg daily, consider discontinuing while admitted Epilepsy 08/27/2018 08/30/2018 documented as of this encounter (statuses as of 05/13/2022) [facility] Narrative* Problem Noted Date Resolved Date Seizure-like activity 02/21/2020 02/22/2020 Last Assessment & Plan: Assessment: -Episodes starting age 8, stopped for 10-15 years, recurred in 2018 -Characterized by unresponsiveness, stiffness/shaking, lasting 10-60 mins per pt -Previous 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, dx PNES -Taking topamax 50 mg BID RESTROOMS OR LOUNGES MAID, unclear if for migraine or seizure -Admit for diagnosis -2E 02/20 PLAN: -vEEG -Admission labs: CBC, CMP, UTox,urine hCG -2 mg ativan for seizures >3 mins or >3 seizure in 8 hours -Reduce topamax to 50 mg daily, consider discontinuing while admitted Epilepsy 08/27/2018 08/30/2018 documented as of this encounter (statuses as of 05/14/2022) [facility] Narrative* Problem Noted Date Resolved Date Seizure-like activity 02/21/2020 02/22/2020 Last Assessment & Plan: Assessment: -Episodes starting age 8, stopped for 10-15 years, recurred in 2018 -Characterized by unresponsiveness, stiffness/shaking, lasting 10-60 mins per pt -Previous 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, dx PNES -Taking topamax 50 mg BID RESTROOMS OR LOUNGES MAID, unclear if for migraine or seizure -Admit for diagnosis -2E 02/20 PLAN: -vEEG -Admission labs: CBC, CMP, UTox,urine hCG -2 mg ativan for seizures >3 mins or >3 seizure in 8 hours -Reduce topamax to 50 mg daily, consider discontinuing while admitted Epilepsy 08/27/2018 08/30/2018 documented as of this encounter (statuses as of 05/26/2022) [facility] Narrative* Problem Noted Date Resolved Date Seizure-like activity 02/21/2020 02/22/2020 Last Assessment & Plan: Assessment: -Episodes starting age 8, stopped for 10-15 years, recurred in 2018 -Characterized by unresponsiveness, stiffness/shaking, lasting 10-60 mins per pt -Previous 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, dx PNES -Taking topamax 50 mg BID RESTROOMS OR LOUNGES MAID, unclear if for migraine or seizure -Admit for diagnosis -2E 02/20 PLAN: -vEEG -Admission labs: CBC, CMP, UTox,urine hCG -2 mg ativan for seizures >3 mins or >3 seizure in 8 hours -Reduce topamax to 50 mg daily, consider discontinuing while admitted Epilepsy 08/27/2018 08/30/2018 documented as of this encounter (statuses as of 05/26/2022) [facility] Narrative* Problem Noted Date Resolved Date Seizure-like activity 02/21/2020 02/22/2020 Last Assessment & Plan: Assessment: -Episodes starting age 8, stopped for 10-15 years, recurred in 2018 -Characterized by unresponsiveness, stiffness/shaking, lasting 10-60 mins per pt -Previous 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, dx PNES -Taking topamax 50 mg BID RESTROOMS OR LOUNGES MAID, unclear if for migraine or seizure -Admit for diagnosis -2E 02/20 PLAN: -vEEG -Admission labs: CBC, CMP, UTox,urine hCG -2 mg ativan for seizures >3 mins or >3 seizure in 8 hours -Reduce topamax to 50 mg daily, consider discontinuing while admitted Epilepsy 08/27/2018 08/30/2018 documented as of this encounter (statuses as of 06/04/2022) [facility] Narrative* Problem Noted Date Resolved Date Seizure-like activity 02/21/2020 02/22/2020 Last Assessment & Plan: Assessment: -Episodes starting age 8, stopped for 10-15 years, recurred in 2018 -Characterized by unresponsiveness, stiffness/shaking, lasting 10-60 mins per pt -Previous 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, dx PNES -Taking topamax 50 mg BID RESTROOMS OR LOUNGES MAID, unclear if for migraine or seizure -Admit for diagnosis -2E 02/20 PLAN: -vEEG -Admission labs: CBC, CMP, UTox,urine hCG -2 mg ativan for seizures >3 mins or >3 seizure in 8 hours -Reduce topamax to 50 mg daily, consider discontinuing while admitted Epilepsy 08/27/2018 08/30/2018 documented as of this encounter (statuses as of 06/08/2022) [facility] illness Narrative* Problem Noted Date Resolved Date Seizure-like activity 02/21/2020 02/22/2020 Last Assessment & Plan: Assessment: -Episodes starting age 8, stopped for 10-15 years, recurred in 2018 -Characterized by unresponsiveness, stiffness/shaking, lasting 10-60 mins per pt -Previous 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, dx PNES -Taking topamax 50 mg BID RESTROOMS OR LOUNGES MAID, unclear if for migraine or seizure -Admit for diagnosis -2E 02/20 PLAN: -vEEG -Admission labs: CBC, CMP, UTox,urine hCG -2 mg ativan for seizures >3 mins or >3 seizure in 8 hours -Reduce topamax to 50 mg daily, consider discontinuing while admitted Epilepsy 08/27/2018 08/30/2018 documented as of this encounter (statuses as of 06/09/2022) [facility] Narrative* Problem Noted Date Resolved Date Seizure-like activity 02/21/2020 02/22/2020 Last Assessment & Plan: Assessment: -Episodes starting age 8, stopped for 10-15 years, recurred in 2018 -Characterized by unresponsiveness, stiffness/shaking, lasting 10-60 mins per pt -Previous 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, dx PNES -Taking topamax 50 mg BID RESTROOMS OR LOUNGES MAID, unclear if for migraine or seizure -Admit for diagnosis -2E 02/20 PLAN: -vEEG -Admission labs: CBC, CMP, UTox,urine hCG -2 mg ativan for seizures >3 mins or >3 seizure in 8 hours -Reduce topamax to 50 mg daily, consider discontinuing while admitted Epilepsy 08/27/2018 08/30/2018 documented as of this encounter (statuses as of 06/29/2022) [facility] Narrative* Problem Noted Date Resolved Date Seizure-like activity 02/21/2020 02/22/2020 Last Assessment & Plan: Assessment: -Episodes starting age 8, stopped for 10-15 years, recurred in 2018 -Characterized by unresponsiveness, stiffness/shaking, lasting 10-60 mins per pt -Previous 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, dx PNES -Taking topamax 50 mg BID RESTROOMS OR LOUNGES MAID, unclear if for migraine or seizure -Admit for diagnosis -2E 02/20 PLAN: -vEEG -Admission labs: CBC, CMP, UTox,urine hCG -2 mg ativan for seizures >3 mins or >3 seizure in 8 hours -Reduce topamax to 50 mg daily, consider discontinuing while admitted Epilepsy 08/27/2018 08/30/2018 documented as of this encounter (statuses as of 07/06/2022) [facility] Narrative* Problem Noted Date Resolved Date Seizure-like activity 02/21/2020 02/22/2020 Last Assessment & Plan: Assessment: -Episodes starting age 8, stopped for 10-15 years, recurred in 2018 -Characterized by unresponsiveness, stiffness/shaking, lasting 10-60 mins per pt -Previous 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, dx PNES -Taking topamax 50 mg BID RESTROOMS OR LOUNGES MAID, unclear if for migraine or seizure -Admit for diagnosis -2E 02/20 PLAN: -vEEG -Admission labs: CBC, CMP, UTox,urine hCG -2 mg ativan for seizures >3 mins or >3 seizure in 8 hours -Reduce topamax to 50 mg daily, consider discontinuing while admitted Epilepsy 08/27/2018 08/30/2018 documented as of this encounter (statuses as of 07/07/2022) [facility] Narrative* Problem Noted Date Resolved Date Seizure-like activity 02/21/2020 02/22/2020 Last Assessment & Plan: Assessment: -Episodes starting age 8, stopped for 10-15 years, recurred in 2018 -Characterized by unresponsiveness, stiffness/shaking, lasting 10-60 mins per pt -Previous 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, dx PNES -Taking topamax 50 mg BID RESTROOMS OR LOUNGES MAID, unclear if for migraine or seizure -Admit for diagnosis -2E 02/20 PLAN: -vEEG -Admission labs: CBC, CMP, UTox,urine hCG -2 mg ativan for seizures >3 mins or >3 seizure in 8 hours -Reduce topamax to 50 mg daily, consider discontinuing while admitted Epilepsy 08/27/2018 08/30/2018 documented as of this encounter (statuses as of 07/16/2022) [facility] Narrative* Problem Noted Date Resolved Date Seizure-like activity 02/21/2020 02/22/2020 Last Assessment & Plan: Assessment: -Episodes starting age 8, stopped for 10-15 years, recurred in 2018 -Characterized by unresponsiveness, stiffness/shaking, lasting 10-60 mins per pt -Previous 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, dx PNES -Taking topamax 50 mg BID RESTROOMS OR LOUNGES MAID, unclear if for migraine or seizure -Admit for diagnosis -2E 02/20 PLAN: -vEEG -Admission labs: CBC, CMP, UTox,urine hCG -2 mg ativan for seizures >3 mins or >3 seizure in 8 hours -Reduce topamax to 50 mg daily, consider discontinuing while admitted Epilepsy 08/27/2018 08/30/2018 documented as of this encounter (statuses as of 07/17/2022) [facility] Narrative* Problem Noted Date Resolved Date Seizure-like activity 02/21/2020 02/22/2020 Last Assessment & Plan: Assessment: -Episodes starting age 8, stopped for 10-15 years, recurred in 2018 -Characterized by unresponsiveness, stiffness/shaking, lasting 10-60 mins per pt -Previous 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, dx PNES -Taking topamax 50 mg BID RESTROOMS OR LOUNGES MAID, unclear if for migraine or seizure -Admit for diagnosis -2E 02/20 PLAN: -vEEG -Admission labs: CBC, CMP, UTox,urine hCG -2 mg ativan for seizures >3 mins or >3 seizure in 8 hours -Reduce topamax to 50 mg daily, consider discontinuing while admitted Epilepsy 08/27/2018 08/30/2018 documented as of this encounter (statuses as of 07/22/2022) [facility] Narrative* Problem Noted Date Resolved Date Seizure-like activity 02/21/2020 02/22/2020 Last Assessment & Plan: Assessment: -Episodes starting age 8, stopped for 10-15 years, recurred in 2018 -Characterized by unresponsiveness, stiffness/shaking, lasting 10-60 mins per pt -Previous 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, dx PNES -Taking topamax 50 mg BID RESTROOMS OR LOUNGES MAID, unclear if for migraine or seizure -Admit for diagnosis -2E 02/20 PLAN: -vEEG -Admission labs: CBC, CMP, UTox,urine hCG -2 mg ativan for seizures >3 mins or >3 seizure in 8 hours -Reduce topamax to 50 mg daily, consider discontinuing while admitted Epilepsy 08/27/2018 08/30/2018 documented as of this encounter (statuses as of 07/22/2022) [facility] Narrative* Problem Noted Date Resolved Date Seizure-like activity 02/21/2020 02/22/2020 Last Assessment & Plan: Assessment: -Episodes starting age 8, stopped for 10-15 years, recurred in 2018 -Characterized by unresponsiveness, stiffness/shaking, lasting 10-60 mins per pt -Previous 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, dx PNES -Taking topamax 50 mg BID RESTROOMS OR LOUNGES MAID, unclear if for migraine or seizure -Admit for diagnosis -2E 02/20 PLAN: -vEEG -Admission labs: CBC, CMP, UTox,urine hCG -2 mg ativan for seizures >3 mins or >3 seizure in 8 hours -Reduce topamax to 50 mg daily, consider discontinuing while admitted Epilepsy 08/27/2018 08/30/2018 documented as of this encounter (statuses as of 07/31/2022) [facility] N[facility]ative* Problem Noted Date Resolved Date Seizure-like activity 02/21/2020 02/22/2020 Last Assessment & Plan: Assessment: -Episodes starting age 8, stopped for 10-15 years, recurred in 2018 -Characterized by unresponsiveness, stiffness/shaking, lasting 10-60 mins per pt -Previous 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, dx PNES -Taking topamax 50 mg BID RESTROOMS OR LOUNGES MAID, unclear if for migraine or seizure -Admit for diagnosis -2E 02/20 PLAN: -vEEG -Admission labs: CBC, CMP, UTox,urine hCG -2 mg ativan for seizures >3 mins or >3 seizure in 8 hours -Reduce topamax to 50 mg daily, consider discontinuing while admitted Epilepsy 08/27/2018 08/30/2018 documented as of this encounter (statuses as of 09/05/2022) [facility] Narrative* Problem Noted Date Resolved Date Seizure-like activity 02/21/2020 02/22/2020 Last Assessment & Plan: Assessment: -Episodes starting age 8, stopped for 10-15 years, recurred in 2018 -Characterized by unresponsiveness, stiffness/shaking, lasting 10-60 mins per pt -Previous 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, dx PNES -Taking topamax 50 mg BID RESTROOMS OR LOUNGES MAID, unclear if for migraine or seizure -Admit for diagnosis -2E 02/20 PLAN: -vEEG -Admission labs: CBC, CMP, UTox,urine hCG -2 mg ativan for seizures >3 mins or >3 seizure in 8 hours -Reduce topamax to 50 mg daily, consider discontinuing while admitted Epilepsy 08/27/2018 08/30/2018 documented as of this encounter (statuses as of 09/07/2022) [facility] Narrative* Problem Noted Date Resolved Date Seizure-like activity 02/21/2020 02/22/2020 Last Assessment & Plan: Assessment: -Episodes starting age 8, stopped for 10-15 years, recurred in 2018 -Characterized by unresponsiveness, stiffness/shaking, lasting 10-60 mins per pt -Previous 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, dx PNES -Taking topamax 50 mg BID RESTROOMS OR LOUNGES MAID, unclear if for migraine or seizure -Admit for diagnosis -2E 02/20 PLAN: -vEEG -Admission labs: CBC, CMP, UTox,urine hCG -2 mg ativan for seizures >3 mins or >3 seizure in 8 hours -Reduce topamax to 50 mg daily, consider discontinuing while admitted Epilepsy 08/27/2018 08/30/2018 documented as of this encounter (statuses as of 09/18/2022) [facility] Narrative* Problem Noted Date Resolved Date Seizure-like activity 02/21/2020 02/22/2020 Last Assessment & Plan: Assessment: -Episodes starting age 8, stopped for 10-15 years, recurred in 2018 -Characterized by unresponsiveness, stiffness/shaking, lasting 10-60 mins per pt -Previous 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, dx PNES -Taking topamax 50 mg BID RESTROOMS OR LOUNGES MAID, unclear if for migraine or seizure -Admit for diagnosis -2E 02/20 PLAN: -vEEG -Admission labs: CBC, CMP, UTox,urine hCG -2 mg ativan for seizures >3 mins or >3 seizure in 8 hours -Reduce topamax to 50 mg daily, consider discontinuing while admitted Epilepsy 08/27/2018 08/30/2018 documented as of this encounter (statuses as of 09/28/2022) [facility] Narrative* Problem Noted Date Resolved Date Seizure-like activity 02/21/2020 02/22/2020 Last Assessment & Plan: Assessment: -Episodes starting age 8, stopped for 10-15 years, recurred in 2018 -Characterized by unresponsiveness, stiffness/shaking, lasting 10-60 mins per pt -Previous 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, dx PNES -Taking topamax 50 mg BID RESTROOMS OR LOUNGES MAID, unclear if for migraine or seizure -Admit for diagnosis -2E 02/20 PLAN: -vEEG -Admission labs: CBC, CMP, UTox,urine hCG -2 mg ativan for seizures >3 mins or >3 seizure in 8 hours -Reduce topamax to 50 mg daily, consider discontinuing while admitted Epilepsy 08/27/2018 08/30/2018 documented as of this encounter (statuses as of 10/01/2022) [facility] Narrative* Problem Noted Date Resolved Date Seizure-like activity 02/21/2020 02/22/2020 Last Assessment & Plan: Assessment: -Episodes starting age 8, stopped for 10-15 years, recurred in 2018 -Characterized by unresponsiveness, stiffness/shaking, lasting 10-60 mins per pt -Previous 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, dx PNES -Taking topamax 50 mg BID RESTROOMS OR LOUNGES MAID, unclear if for migraine or seizure -Admit for diagnosis -2E 02/20 PLAN: -vEEG -Admission labs: CBC, CMP, UTox,urine hCG -2 mg ativan for seizures >3 mins or >3 seizure in 8 hours -Reduce topamax to 50 mg daily, consider discontinuing while admitted Epilepsy 08/27/2018 08/30/2018 documented as of this encounter (statuses as of 10/13/2022) [facility] History of Past illness Narrative* Problem Noted Date Resolved Date Seizure-like activity 02/21/2020 02/22/2020 Last Assessment & Plan: Assessment: -Episodes starting age 8, stopped for 10-15 years, recurred in 2018 -Characterized by unresponsiveness, stiffness/shaking, lasting 10-60 mins per pt -Previous 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, dx PNES -Taking topamax 50 mg BID RESTROOMS OR LOUNGES MAID, unclear if for migraine or seizure -Admit for diagnosis -2E 02/20 PLAN: -vEEG -Admission labs: CBC, CMP, UTox,urine hCG -2 mg ativan for seizures >3 mins or >3 seizure in 8 hours -Reduce topamax to 50 mg daily, consider discontinuing while admitted Epilepsy 08/27/2018 08/30/2018 documented as of this encounter (statuses as of 10/28/2022) [facility] History of Past illness Narrative* Problem Noted Date Resolved Date Seizure-like activity 02/21/2020 02/22/2020 Last Assessment & Plan: Assessment: -Episodes starting age 8, stopped for 10-15 years, recurred in 2018 -Characterized by unresponsiveness, stiffness/shaking, lasting 10-60 mins per pt -Previous 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, dx PNES -Taking topamax 50 mg BID RESTROOMS OR LOUNGES MAID, unclear if for migraine or seizure -Admit for diagnosis -2E 02/20 PLAN: -vEEG -Admission labs: CBC, CMP, UTox,urine hCG -2 mg ativan for seizures >3 mins or >3 seizure in 8 hours -Reduce topamax to 50 mg daily, consider discontinuing while admitted Epilepsy 08/27/2018 08/30/2018 documented as of this encounter (statuses as of 11/10/2022) [facility] History of Past illness Narrative* Problem Noted Date Resolved Date Seizure-like activity 02/21/2020 02/22/2020 Last Assessment & Plan: Assessment: -Episodes starting age 8, stopped for 10-15 years, recurred in 2018 -Characterized by unresponsiveness, stiffness/shaking, lasting 10-60 mins per pt -Previous 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, dx PNES -Taking topamax 50 mg BID RESTROOMS OR LOUNGES MAID, unclear if for migraine or seizure -Admit for diagnosis -2E 02/20 PLAN: -vEEG -Admission labs: CBC, CMP, UTox,urine hCG -2 mg ativan for seizures >3 mins or >3 seizure in 8 hours -Reduce topamax to 50 mg daily, consider discontinuing while admitted Epilepsy 08/27/2018 08/30/2018 documented as of this encounter (statuses as of 11/22/2022) [facility] History of Past illness Narrative* Problem Noted Date Resolved Date Seizure-like activity 02/21/2020 02/22/2020 Last Assessment & Plan: Assessment: -Episodes starting age 8, stopped for 10-15 years, recurred in 2018 -Characterized by unresponsiveness, stiffness/shaking, lasting 10-60 mins per pt -Previous 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, dx PNES -Taking topamax 50 mg BID RESTROOMS OR LOUNGES MAID, unclear if for migraine or seizure -Admit for diagnosis -2E 02/20 PLAN: -vEEG -Admission labs: CBC, CMP, UTox,urine hCG -2 mg ativan for seizures >3 mins or >3 seizure in 8 hours -Reduce topamax to 50 mg daily, consider discontinuing while admitted Epilepsy 08/27/2018 08/30/2018 documented as of this encounter (statuses as of 11/30/2022) [facility] History of Past illness Narrative* Problem Noted Date Resolved Date Seizure-like activity 02/21/2020 02/22/2020 Last Assessment & Plan: Assessment: -Episodes starting age 8, stopped for 10-15 years, recurred in 2018 -Characterized by unresponsiveness, stiffness/shaking, lasting 10-60 mins per pt -Previous 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, dx PNES -Taking topamax 50 mg BID RESTROOMS OR LOUNGES MAID, unclear if for migraine or seizure -Admit for diagnosis -2E 02/20 PLAN: -vEEG -Admission labs: CBC, CMP, UTox,urine hCG -2 mg ativan for seizures >3 mins or >3 seizure in 8 hours -Reduce topamax to 50 mg daily, consider discontinuing while admitted Epilepsy 08/27/2018 08/30/2018 documented as of this encounter (statuses as of 12/02/2022) [facility] History of Past illness Narrative* Problem Noted Date Resolved Date Seizure-like activity 02/21/2020 02/22/2020 Last Assessment & Plan: Assessment: -Episodes starting age 8, stopped for 10-15 years, recurred in 2018 -Characterized by unresponsiveness, stiffness/shaking, lasting 10-60 mins per pt -Previous 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, dx PNES -Taking topamax 50 mg BID RESTROOMS OR LOUNGES MAID, unclear if for migraine or seizure -Admit for diagnosis -2E 02/20 PLAN: -vEEG -Admission labs: CBC, CMP, UTox,urine hCG -2 mg ativan for seizures >3 mins or >3 seizure in 8 hours -Reduce topamax to 50 mg daily, consider discontinuing while admitted Epilepsy 08/27/2018 08/30/2018 documented as of this encounter (statuses as of 12/18/2022) [facility] History of Past illness Narrative* Problem Noted Date Resolved Date Seizure-like activity 02/21/2020 02/22/2020 Last Assessment & Plan: Assessment: -Episodes starting age 8, stopped for 10-15 years, recurred in 2018 -Characterized by unresponsiveness, stiffness/shaking, lasting 10-60 mins per pt -Previous 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, dx PNES -Taking topamax 50 mg BID RESTROOMS OR LOUNGES MAID, unclear if for migraine or seizure -Admit for diagnosis -2E 02/20 PLAN: -vEEG -Admission labs: CBC, CMP, UTox,urine hCG -2 mg ativan for seizures >3 mins or >3 seizure in 8 hours -Reduce topamax to 50 mg daily, consider discontinuing while admitted Epilepsy 08/27/2018 08/30/2018 documented as of this encounter (statuses as of 12/24/2022) [facility] History of Past illness Narrative* Problem Noted Date Resolved Date Seizure-like activity 02/21/2020 02/22/2020 Last Assessment & Plan: Assessment: -Episodes starting age 8, stopped for 10-15 years, recurred in 2018 -Characterized by unresponsiveness, stiffness/shaking, lasting 10-60 mins per pt -Previous 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, dx PNES -Taking topamax 50 mg BID RESTROOMS OR LOUNGES MAID, unclear if for migraine or seizure -Admit for diagnosis -2E 02/20 PLAN: -vEEG -Admission labs: CBC, CMP, UTox,urine hCG -2 mg ativan for seizures >3 mins or >3 seizure in 8 hours -Reduce topamax to 50 mg daily, consider discontinuing while admitted Epilepsy 08/27/2018 08/30/2018 documented as of this encounter (statuses as of 12/28/2022) [facility] History of Past illness Narrative* Problem Noted Date Resolved Date Seizure-like activity 02/21/2020 02/22/2020 Last Assessment & Plan: Assessment: -Episodes starting age 8, stopped for 10-15 years, recurred in 2018 -Characterized by unresponsiveness, stiffness/shaking, lasting 10-60 mins per pt -Previous 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, dx PNES -Taking topamax 50 mg BID RESTROOMS OR LOUNGES MAID, unclear if for migraine or seizure -Admit for diagnosis -2E 02/20 PLAN: -vEEG -Admission labs: CBC, CMP, UTox,urine hCG -2 mg ativan for seizures >3 mins or >3 seizure in 8 hours -Reduce topamax to 50 mg daily, consider discontinuing while admitted Epilepsy 08/27/2018 08/30/2018 documented as of this encounter (statuses as of 01/19/2023) [facility] History of Past illness Narrative* Problem Noted Date Resolved Date Seizure-like activity 02/21/2020 02/22/2020 Last Assessment & Plan: Assessment: -Episodes starting age 8, stopped for 10-15 years, recurred in 2018 -Characterized by unresponsiveness, stiffness/shaking, lasting 10-60 mins per pt -Previous 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, dx PNES -Taking topamax 50 mg BID RESTROOMS OR LOUNGES MAID, unclear if for migraine or seizure -Admit for diagnosis -2E 02/20 PLAN: -vEEG -Admission labs: CBC, CMP, UTox,urine hCG -2 mg ativan for seizures >3 mins or >3 seizure in 8 hours -Reduce topamax to 50 mg daily, consider discontinuing while admitted Epilepsy 08/27/2018 08/30/2018 documented as of this encounter (statuses as of 03/01/2023) [facility] History of Past illness Narrative* Problem Noted Date Diagnosed Date Resolved Date Seizure-like activity 02/21/20202019 Last Assessment & Plan: Assessment: -Episodes starting age 8, stopped for 10-15 years, recurred in 2018 -Characterized by unresponsiveness, stiffness/shaking, lasting 10-60 mins per pt -Previous 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, dx PNES -Taking topamax 50 mg BID RESTROOMS OR LOUNGES MAID, unclear if for migraine or seizure -Admit for diagnosis -2E 02/20 PLAN: -vEEG -Admission labs: CBC, CMP, UTox,urine hCG -2 mg ativan for seizures >3 mins or >3 seizure in 8 hours -Reduce topamax to 50 mg daily, consider discontinuing while admitted Epilepsy 08/27/2018 08/30/2018 documented as of this encounter (statuses as of 08/12/2023) [facility] History of Past illness Narrative* Problem Noted Date Diagnosed Date Resolved Date Seizure-like activity 02/21/20202019 Last Assessment & Plan: Assessment: -Episodes starting age 8, stopped for 10-15 years, recurred in 2018 -Characterized by unresponsiveness, stiffness/shaking, lasting 10-60 mins per pt -Previous 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, dx PNES -Taking topamax 50 mg BID RESTROOMS OR LOUNGES MAID, unclear if for migraine or seizure -Admit for diagnosis -2E 02/20 PLAN: -vEEG -Admission labs: CBC, CMP, UTox,urine hCG -2 mg ativan for seizures >3 mins or >3 seizure in 8 hours -Reduce topamax to 50 mg daily, consider discontinuing while admitted Epilepsy 08/27/2018 08/30/2018 documented as of this encounter (statuses as of 08/13/2023) [facility] Mukul Yusuf [facility] Note Date/Time September 10, 2025 4 :32am [facility] Medical Records Department [address] [place] [address] Emergency Department Summary 09/10/25 MR#: [id number] Acct: [id number] Name: PER FARMER Rep #:[id number] : 1995 30 From: Mukul Yusuf DO PCP: Dr. Sophie Avalos MD Status:DEP E R Location: ED HPI History of [...] has been no associated fevers or dysuria. Shedenies any recent trauma. She is concerned that the pain could be related to return of her dermoid cyst or potentially infectious process and therefore comesin for evaluation. [facility] Medical History Anemia ADHD Dermoid cyst of [...] mg PO BID 03/16/20 Unknow n History ondansetron 4 mg disintegrating 4 mg [...] 60 mg capsule,delayed 60 mg PO DAILY Unknown History release fremanezumab-vfrm 225 mg/1.5 mL 225 mg subcut QMONTH 1 Unknown History subcutaneous auto-injector (Ajovy) gabapentin 400 mg capsule 400 mg PO QHS 09/10/25 Unkno wn History hydroxyzine HCl 25 mg tablet 25 - 50 mg PO QHS PRN PRN insomnia 09/10/25 Unknown History levetiracetam 1,000 mg tablet 1,000 mg PO BID 09/10/25 Unknown History polyethylene glycol 3350 17 17 g PO DAILY 30 days #510 grams 09/10/25 Unknown Rx gram/dose oral powder (Miralax) Allergy/AdvReac [...] every day smoker tobacco type: cigarettes and e- cigarettes alcohol intake: current alcohol intake frequency: other [...] Denies rash Neurologic Neurologic: Denies headache(s) Hematologic/Lymphatic Hematologic/Lymphatic: Denies easy bleeding or easy bruising EXAM Physical Exam Const Vital Signs: 09/10/25 00:47 09/10/25 01:51 09/10/25 01:51 Temperature 97.4 F L Temperature Source Oral Pulse Rate 78 Respiratory Rate 18 16 Blood Pressure 112/75 Blood Pressure Mean 87 Pulse Ox 99 84 99 Oxygen Delivery Method Room Air Room Air Nasal Cannula Oxygen Flow Rate (L/min) 2 09/10/25 03:00 09/10/25 04:23 Temperature 98 F Temperature Source Pulse Rate 70 71 Respiratory Rate 16 14 Blood Pressure 97/63 104/61 Blood Pressure Mean 74 75 Pulse Ox 100 100 Oxygen Delivery Method Room Air Oxygen Flow Rate (L/min) Positive well nourished and well developed General Appearance ED: well developed; Negative for pallor HEENT HEENT Narrative: Normocephalic atraumatic Eyes PERRL and EOMs intact bilaterally General Eye ED: Negative for scleral icterus Neck supple Resp normal respiratory effort and clear to auscultation bilaterally Cardio regular rate and regular rhythm Rate: other Other Details: Heart is regular rate and rhythm without murmurs rubsor gallop Radial and carotid pulses are equal and symmetric GI non-distended and no masses GI Narrative: Abdomen is soft and nondistended with hypoactive bowel sounds. There is mild diffuse pain with palpation. No voluntary guarding or rigidity. No pulsatile mass. No peritoneal signs Auscultation: hypoactive bowel sounds Palpation: soft Extremity Extremity Narrative: There is mild generalized pain with palpation of the right shoulder. No obviousbony deformity or joint effusion or sulcus sign noted. No overlying erythema orwarmth to suggest infection such as cellulitis or abscess and no abrasions or ecchymosis to suggest recent trauma. The right upper extremity is neurovascularly intact. No asymmetric edema or pitting edema to suggest upper extremity DVT. Compartments are soft and compressible going against compartmentsyndrome. Neuro oriented x3 and CN's II-XII intact bilaterally Sensorium / Orientation: alert Psych mental status grossly normal Skin no rashes or lesions noted and no wounds General Skin Exam: Negative for jaundice or pallor MDM MDM MDM Narrative Medical decision making narrative: Patient presented to the ER with stable vitals. She reported constant abdominalpain that was diffuse in nature for approximately 1 week. She was seen in the ER at that time and had a CT scan which showed a right ovarian cyst and constipation but was otherwise negative. Her diffuse pain could be related to constipation also concern for ileus versus obstruction versus intestinal abscess. Patient also could have worsening of her ovarian cyst. Secondary to this I did elect to repeat laboratory studies with a CT scan. Labs revealed no clinically significant findings to indicate a common bile duct stone acute pancreatitis or systemic infection. CT scan showed resolution of the right ovarian cyst and persistent left ovarian cyst without increased in size. There was also findings of constipation without bowel obstruction or ileus. She also complained of right shoulder pain without injury and therefore I performed an x-ray to ensure there is no sign of joint effusion or avascular necrosis or moth-eaten appearance to suggest osteomyelitis. X-ray revealed no acute finding. After 1 dose of pain medication the patient was pain-free and able to sleep. Therefore at this time his vitals are stable and overall workup is negative I donot feel the need for further intervention in the ER. As she has had persistentovarian cyst I will order an outpatient transvaginal ultrasound to further assess these but based on their size on CT scan and the fact her pain is resolved I have low concern for torsion and without white count or fever I have low concern for tubo-ovarian abscess. Therefore patient is otherwise safe for discharge History & Record Review Discussion w/independent historian: Patient and Family Additional record(s) reviewed:: Prior ED visit and Prior labs Lab Data Attestation: I reviewed the patient's lab results. Labs: Laboratory Results - last 24 hr 09/10/25 01:19 WBC 10.8 RBC 4.49 Hgb 12.8 Hct 38.0 MCV 84.6 MCH 28.5 MCHC 33.7 RDW Std Deviation 41.1 RDW Coeff of Phi 13.2 Plt Count 324 MPV 9.3 Immature Gran % (Auto) 0.300 Neut % (Auto) 54.9 Lymph % (Auto) 31.0 [place] % (Auto) 7.4 Eos % (Auto) 5.6 H Baso % (Auto) 0.8 Absolute Neuts (auto) 5.9 Absolute Lymphs (auto) 3.34 Nucleated RBC % 0 Sodium 135 Potassium 4.2 Chloride 104 Carbon Dioxide 21.2 Anion Gap 11 BUN 16 Creatinine 0.55 L Estim Creat Clear Calc 165.88 Est GFR (MDRD) Non-Af 128 BUN/Creatinine Ratio 29.9 H Glucose 84 Calcium 9.3 Total Bilirubin 0.23 Direct Bilirubin 0.09 AST 12 ALT 6 Alkaline Phosphatase 45 Total Protein 6.5 Albumin 4.0 Globulin 2.5 Lipase 43 Serum , Qual NEGATIVE Radiography Diagnostic Testing: Clinical Impression(s) from Imaging Studies Abdomen/Pelvis CT 09/10/25 02:03 IMPRESSION: The previously described 2.5 cm right adnexal cyst is not identified on the current exam. Unchanged 2.8 cm left ovarian cyst. Prior cholecystectomy. Moderate amount of fecal residue in the large bowels. Fluid-filled small bowels, nonspecific finding. Reading Location: [place] [address] Shoulder X-Ray 09/10/25 02:19 IMPRESSION: No evidence for acute abnormality. Reading Location: [place] [address] Right shoulder x-ray as interpreted by the emergency medicine physician reveals no acute fracture dislocation or joint effusion Discharge Plan Triage Chief Complaint: Abd Pain ED Provider: Mukul Yusuf Dx/Rx/DC Orders Clinical Impression: Nonspecific abdominal pain, Ovarian cyst, Constipation Instructions: Abdominal Pain, ED Constipation (Adult), ED Ovarian Cyst Prescriptions: New polyethylene glycol 3350 [Miralax] 17 gram/dose powder 17 g PO DAILY 30 Days Qty: 510 0RF No Action albuterol sulfate [Ventolin HFA] 1 INHALER inhaler 1 puff inhalation Q4H PRN PRN (Reason: Wheezing) ferrous sulfate 325 MG tablet 325 mg PO DAILY Patient Comments: Take 1 tablet by mouth twice daily with meals. topiramate 50 MG tablet 50 mg PO BID ondansetron [ondansetron] 4 mg tablet,disintegrating 4 mg [...] loose stool) 4 Days Qty: 10 0RF gabapentin 400 mg capsule 400 mg PO QHS hydroxyzine HCl 25 mg tablet 25 - 50 mg PO QHS PRN PRN (Reason: insomnia) duloxetine 60 mg capsule,delayed release(DR/EC) 60 mg PO DAILY levetiracetam 1,000 mg tablet 1,000 mg PO BID Ajovy Autoinjector 225 mg/1.5 mL auto-injector 225 mg SUBCUT QMONTH Patient Comments: Inject 1.5 mL subcutaneously once every month. Do not shake. Other Ambulatory Orders: Transvaginal Non- (Routine) Facility: [facility] - Location: [facility] Ordered By: Dr. Mukul Yusuf Primary Care Provider: Sophie Avalos Referrals: Sophie Avalos MD [Primary Care Provider, Medical] Activity Restrictions/Additional Instructions: Your labs revealed no clinically significant finding. The CT scan showed a leftsided ovarian cyst and constipation but otherwise no signs of infection or blockage. Please take the MiraLAX daily to stimulate bowel movements. Obtain the outpatient ultrasound to further assess your cystic structures. Return to the ER should you have any further concerns Print Language: Sammarinese Disposition Disposition: Home, Self Care Discharge Date/Time: 09/10/25 04:32 What to do if you have Problems For any increased pain, shortness of breath, bleeding, nausea or vomiting, chestpain, or any unexpected problems, contact your Primary Care Provider. Call [facility] ([phone]) or report to the closest Emergency Room. Call 911 if necessary. 09/10/25 0616 <Electronically signed by Mukul Yusuf DO> Cosigner Signature (if applicable): CC: Dr. Sophie Avalos MD ~ Signed [facility] Work Phone: Evaluation + Plan note No data available for this section [facility] Evaluation note* Diagnosis Diarrhea, unspecified type- Primary Abdominal cramping Abdominal pain, unspecified site Right upper quadrant pain Abdominal pain, right upper quadrant [facility]No assessment information [facility] Work Phone: Evaluation note* Diagnosis Acute pain of right shoulder- Primary [facility] Diagnosis Acute pain of right shoulder documented in this encounter [facility]* Diagnosis Encounter for management and injection of depo-Provera- Primary Surveillance of other previously prescribed contraceptive method documented in this encounter [facility] note* Diagnosis Acute pain of right shoulder- Primary documented in this encounter [facility] note* Diagnosis Acute pain of right shoulder- Primary documented in this [facility]* Diagnosis Acute pain of right shoulder- Primary [facility]* Diagnosis Acute pain of right shoulder- Primary [facility] Diagnosis Tail bone pain- Primary Other disorder of coccyx documented in this encounter [facility]* Diagnosis Acute pain of right shoulder- Primary documented in this encounter [facility] note* Diagnosis Acute pain of right shoulder- Primary documented in this [facility]* Diagnosis Eyelid disorder- Primary Unspecified disorder of eyelid Right elbow pain Pain in joint, upper arm Paresthesia Disturbance of skin sensation documented in this encounter [facility] note* Diagnosis RUQ abdominal pain Abdominal pain, right upper quadrant Loose stools Abnormal feces documented in this encounter [facility] note* Diagnosis Leg weakness, bilateral- Primary Other musculoskeletal symptoms referable to limbs Paresthesia Disturbance of skin sensation Right arm numbness Disturbance of skin sensation Lower extremity numbness Disturbance of skin sensation documented in this encounter [facility] note* Diagnosis Nausea Nausea alone documented in this encounter [facility] note* Diagnosis Encounter for gynecological examination (general) [...] for venereal disease [facility] Diagnosis RUQ pain- Primary Abdominal pain, right upper quadrant Diarrhea, unspecified type documented [facility] this [facility]* Diagnosis Upper respiratory symptom- Primary Other symptoms involving respiratory system and chest Diarrhea, unspecified type Right lower quadrant abdominal pain Abdominal pain, right lower quadrant documented in this encounter [facility]* Diagnosis Bronchitis Bronchitis, not specified as acute or chronic [facility] Pain in right arm- Primary Paresthesia Disturbance of skin sensation Leg weakness, bilateral Other musculoskeletal symptoms referable to limbs Right arm numbness Disturbance of skin sensation Lower extremity numbness Disturbance of skin sensation Pain in right leg Paresthesia of skin Disturbance of skin sensation [facility] Diagnosis Chronic right shoulder pain- Primary Pain in joint, shoulder region Chronic neck pain Cervicalgia Prediabetes Other abnormal glucose documented in this encounter [facility]* Diagnosis Breast pain- Primary Mastodynia [facility] Diagnosis Viral URI with cough- Primary Acute upper respiratory infections of unspecified site Otalgia of right ear Otalgia, unspecified [facility]* Diagnosis Biliary colic- Primary Calculus of gallbladder without mention of cholecystitis or obstruction documented in this [facility] Diagnosis Persistent asthma without complication, unspecified asthma severity- Primary Depression, unspecified depression type Biliary colic Calculus of gallbladder without mention of cholecystitis or obstruction documented in this encounter [facility] Diagnosis Mild intermittent asthma without complication- Primary Unspecified asthma Biliary colic Calculus of gallbladder without mention of cholecystitis or obstruction [facility] Diagnosis Pre-op exam [Z01.818 (ICD-10-CM)]- Primary [...] cholecystitis or obstruction [facility] Diagnosis Encounter for management and injection of depo-Provera- Primary Surveillance of other previously prescribed contraceptive method Biliary colic Calculus of gallbladder without mention of cholecystitis or obstruction documented in this encounter [facility]* Diagnosis S/P cholecystectomy- Primary Other acquired absence of organ [facility] Diagnosis Folic acid deficiency Other B-complex deficiencies documented in this encounter [facility]* Diagnosis Prediabetes Other abnormal glucose [facility] in [facility] Diagnosis Prediabetes Other abnormal glucose [facility] Diagnosis Functional neurological symptom disorder with [...] cholecystitis or obstruction documented in this encounter [facility]* Diagnosis Functional neurological symptom disorder with [...] cholecystitis or obstruction [facility] Functional neurological symptom disorder with [...] cholecystitis or obstruction [facility] Diagnosis Functional neurological symptom disorder with [...] cholecystitis or obstruction documented in this encounter [facility] note* Diagnosis Functional neurological symptom disorder with [...] cholecystitis or obstruction documented in this encounter [facility] note* Diagnosis Functional neurological symptom disorder with [...] cholecystitis or obstruction [facility] Diagnosis Functional neurological symptom disorder with [...] cholecystitis or obstruction [facility] Diagnosis Functional neurological symptom [...] Diarrhea, unspecified type documented in this encounter [facility] note* Diagnosis Functional neurological symptom disorder with [...] injury, left, sequela [facility] Diagnosis Functional neurological symptom disorder with [...] disorder, unspecified type documented in this encounter [facility] note* Diagnosis Functional neurological symptom disorder with [...] Other abnormal glucose documented in this encounter [facility] note* Diagnosis Functional neurological symptom disorder with [...] whether recurrent- Primary documented in this encounter [facility] note* Diagnosis Functional neurological symptom disorder with [...] Routine gynecological examination documented in this encounter [facility] note* Diagnosis Functional neurological symptom disorder with [...] (HCC) Acute cough documented in this encounter [facility] note* Diagnosis Functional neurological symptom disorder with [...] obstruction Acute cough documented in this encounter [facility] note* Diagnosis Functional neurological symptom disorder with [...] left ankle pain [facility] Diagnosis Functional neurological symptom [...] left ankle pain [facility] N[facility]* Patient [...] was seen in the emergency room at [facility] complaining of this abdominal pain. Repeat ultrasound was done which shows 3 to 4 cm solid lump. No definitive diagnosis made.Ultrasound results reviewed. Films not available. Impression noted * Patient has history of 3 to 4 cm solid possibly proteinaceous cyst right ovary. Ultrasound follow-up needed [facility] Work Phone: [phone] of Present illness NarrativePatient here for postoperative exam. Status post diagnostic laparoscopy with aspiration of ovarian endometrioma. Coagulation of endometriosis. Patient is doing well but has been having some occasional vaginal bleeding heavy up sometimes mostly spotting. No abdominal pain. No nausea vomiting fever chills no GI or [id number] Work Phone: Hospital Discharge instructionsAdditional Instructions Your x-rays did not show any acute broken bones today. Rotate Tylenol and your naproxen for pain control ice, elevate. Follow-up your doctor in outpatient setting. Return with worsening symptoms or any other concernsWBet[facility] Work Phone: Hospital Discharge instructionsAdditional Instructions Your [...] is 2.5 cm. You can follow-up with COMPUTER PROGRAMMER ANALYST about that. Motrin Tylenol for pain.[facility] Work Phone: Hospital Discharge instructionsAdditional Instructions Your labs revealed no clinically significant finding. The CT scan showed a left sided ovarian cyst and constipation but otherwise no signs of infection or blockage. Please take the MiraLAX daily to stimulate bowel movements. Obtain the outpatient ultrasound to further assess your cystic structures. Return to the ER should you have any further concernsWBethesda North Hospital Work Phone: Reason for referral (narrative)* Diagnostic Procedure Only (Routine) - Pending Review Specialty Diagnoses / Procedures Referred By Radha olvera Referred To Contact MOLECULAR & FUNCTIONAL IMAGING Diagnoses Diarrhea, unspecified type Abdominal cramping Right upper quadrant pain Procedures NM HEPATOBILIARY W EF AND/OR RX HEPATOBIL SYST IMAG INC GB W/PHARMA INTERVENJ Sophie Avalos MD [address] [place] [address] Molecular & Functional Imaging [address] [place] [address] Referral ID Status Reason Start Date Expiration Date Visits Requested Visits Authorized [id number] Pending Review Auto-Generat ed Referral 04/09/2022 05/09/2023 1 1 * Consult, Test, Treat (Routine) - Authorized Specialty Diagnoses / Procedures Referred By Radha olvera Referred To Contact Gastroenterology Diagnoses Diarrhea, unspecified type Abdominal cramping Procedures CONSULT TO GASTROENTEROLOGY OFFICE/OUTPATIENT [facility] 60-74 MINUTES Sophie Avalos MD [address] [place] [address] Referral ID Status Reason Start Date Expiration Date Visits Requested Visits Authorized [id number] Authorized PCP Requested Referral 04/09/2022 04/09/2023 1 1 [facility] for referral (narrative)* Diagnostic Procedure Only (Routine) - Closed Specialty Diagnoses / Procedures Referred By Radha olvera Referred To Contact XR IMAGING Diagnoses Acute pain of right shoulder Procedures XR SHOULDER GENERAL 3V OR MORE AP/TRUE AP/OTHER RIGHT RADEX SHOULDER COMPLETE MINIMUM 2 VIEWS Sophie Avalos MD [address] [place] [address] Xr Imaging Referral ID Status Reason Start Date Expiration Date V isits Requested Visits Authorized [id number] Closed Auto-Generate d Referral 04/30/2022 05/30/2023 1 1 [facility] for referral (narrative)* Diagnostic Procedure Only (Routine) - Closed Specialty Diagnoses / Procedures Referred By Contac t Referred To Contact US IMAGING Diagnoses RUQ abdominal pain Loose stools Procedures US ABD RT UPPER QUADRANT US ABDOMINAL REAL TIME W/IMAGE LIMITED Latonya Llamas APRN.GEAR MACHINIST [address] [place] [address] Us Imaging Referral ID Status Reason Start Date Expiration Date V isits Requested Visits Authorized [id number] Closed Auto-Generate d Referral 06/29/2022 07/29/2023 1 1 [facility] for referral (narrative)* Outpatient Procedure (Routine) - Pending Review Specialty Diagnoses / Procedures Referred By Contac t Referred To [facility] Diagnoses Paresthesia Leg weakness, bilateral Right arm numbness Lower extremity numbness Procedures EMG(NEURO/NI) NERVE CONDUCTION STUDIES 9-10 STUDIES Barndi Oconnell APRN.GEAR MACHINIST [address] [place] [address] [address] Referral ID Status Reason Start Date Expiration Date Visits Requested Visits Authorized [id number] Pending Review Auto-Generat ed Referral 07/16/2022 07/16/2023 1 1 * Outpatient Procedure (Routine) - Pending Review Specialty Diagnoses / Procedures Referred By Contac t Referred To [facility] Diagnoses Paresthesia Leg weakness, bilateral Right arm numbness Lower extremity numbness Procedures EMG(NEURO/NI) NERVE CONDUCTION STUDIES 9-10 STUDIES Brandi Oconnell APRN.GEAR MACHINIST [address] [place] [address] [facility] [address] [place] [address] Referral ID Status Reason Start Date Expiration Date Visits Requested Visits Authorized [id number] Pending Review Auto-Generat ed Referral 07/16/2022 07/16/2023 1 1 * Diagnostic Procedure Only (Routine) - Pending Review Specialty Diagnoses / Procedures Referred By Contac t Referred To Contact XR IMAGING Diagnoses Leg weakness, bilateral Lower extremity numbness Procedures XR LUMBAR GENERAL 3V AP/LAT/L5-S1 RADEX SPINE LUMBOSACRAL 2/3 VIEWS Brandi Oconnell APRN.GEAR MACHINIST [address] [place] [address] Xr Imaging Referral ID Status Reason Start Date Expiration Date Visits Requested Visits Authorized [id number] Pending Review Auto-Generat ed Referral 07/16/2022 08/15/2023 1 1 [facility] for referral (narrative)* Diagnostic Procedure Only (Routine) - Closed Specialty Diagnoses / Procedures Referred By Contac t Referred To Contact MOLECULAR & FUNCTIONAL IMAGING Diagnoses Nausea Procedures NM HEPATOBILIARY W EF AND/OR RX HEPATOBIL SYST IMAG INC GB W/PHARMA INTERVENJ Latonya Llamas APRN.GEAR MACHINIST [address] [place] [address] Molecular & Functional Imaging [address] [place] [address] Referral ID Status Reason Start Date Expiration Date V isits Requested Visits Authorized [id number] Closed Auto-Generate d Referral 07/09/2022 11/28/2022 1 1 [facility] for referral (narrative)* Diagnostic Procedure Only (Routine) - Authorized Specialty Diagnoses / Procedures Referred By Contac t Referred To Contact BR IMAGING Diagnoses Breast pain Procedures US BREAST LTD RT US BREAST UNI REAL TIME WITH IMAGE LIMITED Sophie Avalos MD [address] [place] [address] Br Imaging [address] [place] [address] Referral ID Status Reason Start Date Expiration Date Visits Requested Visits Authorized [id number] Authorized Auto-Generat ed Referral 2 11/12/2023 1 1 * Diagnostic Procedure Only (Routine) - Authorized Specialty Diagnoses / Procedures Referred By Contac t Referred To Contact BR IMAGING Diagnoses Breast pain Procedures ROSALIE DIAGNOSTIC RT DIAGNOSTIC MAMMOGRAPHY COMPUTER-AIDED DETCJ UNI Sophie Avalos MD [address] [place] [address] Br Imaging [address] [place] [address] Referral ID Status Reason Start Date Expiration Date Visits Requested Visits Authorized [id number] Authorized Auto-Generat ed Referral 2 11/12/2023 1 1 [facility] for referral (narrative)* Diagnostic Procedure Only (Routine) - Closed Specialty Diagnoses / Procedures Referred By Contac t Referred To Contact XR IMAGING Diagnoses Right elbow pain Procedures XR ELBOW GENERAL 2V AP/LAT RIGHT RADEX ELBOW 2 VIEWS Sophie Avalos MD [address] [place] [address] [place] [address] Referral ID Status Reason Start Date Expiration Date V isits Requested Visits Authorized [id number] Closed Auto-Generate d Referral 06/08/2022 07/08/2023 1 1 [facility] for referral (narrative)* Diagnostic Procedure Only (Routine) - Closed Specialty Diagnoses / Procedures Referred By Contac t Referred To Contact XR IMAGING Diagnoses Leg weakness, bilateral Lower extremity numbness Procedures XR LUMBAR GENERAL 3V AP/LAT/L5-S1 RADEX SPINE LUMBOSACRAL 2/3 VIEWS Brandi Oconnell, CHOKE REAM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 [address] [place] [address] [place] [address] Referral ID Status Reason Start Date Expiration Date V isits Requested Visits Authorized [id number] Closed Auto-Generate d Referral 07/16/2022 08/15/2023 1 1 [facility] for referral (narrative)* Diagnostic Procedure Only (Routine) - Closed Specialty Diagnoses / Procedures Referred By Contac t Referred To Contact XR IMAGING Diagnoses Acute pain of right shoulder Procedures XR SHOULDER GENERAL 3V OR MORE AP/TRUE AP/OTHER RIGHT RADEX SHOULDER COMPLETE MINIMUM 2 VIEWS Sophie Avalos MD [address] [place] [address] [place] [address] Referral ID Status Reason Start Date Expiration Date V isits Requested Visits Authorized [id number] Closed Auto-Generate d Referral 04/30/2022 05/30/2023 1 1 [facility] for referral (narrative)No reason for referral information availableWBethesda [facility] Hospital Work Phone: [facility] N[facility]* Diagnostic Procedure Only (Routine) - Closed Specialty Diagnoses / Procedures Referred By Contac t Referred To Contact XR IMAGING Diagnoses Right elbow pain Procedures XR ELBOW GENERAL 2V AP/LAT RIGHT RADEX ELBOW 2 VIEWS Sophie Avalos MD [address] [place] [address] [place] [address] Referral ID Status Reason Start Date Expiration Date V isits Requested Visits Authorized [id number] Closed Auto-Generate d Referral 06/08/2022 07/08/2023 1 1 [facility] for visit Narrative* Diagnostic Procedure Only (Routine) - Closed Specialty Diagnoses / Procedures Referred By Contac t Referred To Contact XR IMAGING Diagnoses Leg weakness, bilateral Lower extremity numbness Procedures XR LUMBAR GENERAL 3V AP/LAT/L5-S1 RADEX SPINE LUMBOSACRAL 2/3 VIEWS Brandi Oconnell APRN.CNP [address] [place] [address] [place] [address] Referral ID Status Reason Start Date Expiration Date V isits Requested Visits Authorized [id number] Closed Auto-Generate d Referral 07/16/2022 08/15/2023 1 1 [facility] for visit Narrative* Diagnostic Procedure Only (Routine) - Closed Specialty Diagnoses / Procedures Referred By Contac t Referred To Contact XR IMAGING Diagnoses Acute pain of right shoulder Procedures XR SHOULDER GENERAL 3V OR MORE AP/TRUE AP/OTHER RIGHT RADEX SHOULDER COMPLETE MINIMUM 2 VIEWS Sophie Avalos MD [address] [place] [address] [place] [address] Referral ID Status Reason Start Date Expiration Date V isits Requested Visits Authorized [id number] Closed Auto-Generate d Referral 04/30/2022 05/30/2023 1 1 [facility] for visit Narrative* Diagnostic Procedure Only (Routine) - Closed Specialty Diagnoses / Procedures Referred By Contac t Referred To Contact XR IMAGING Diagnoses Finger injury, left, sequela Procedures XR DIGIT GENERAL 3V FRONTAL/LAT/OBL LEFT RADEX FINGR MINIMUM 2 VIEWS Di Arreola, CHOKE REAM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 [address] [place] [address] Phone: tel: fax: [place] [address] Referral ID Status Reason Start Date Expiration Date V isits Requested Visits Authorized [id number] Closed Auto-Generate d Referral 05/01/2025 05/31/2026 1 1 [facility] for visit Narrative* Diagnostic Procedure Only (Urgent) - Closed Specialty Diagnoses / Procedures Referred By Contac t Referred To Contact XR IMAGING Diagnoses Acute left ankle pain Procedures XR ANKLE GENERAL 3V AP/LAT/OBL LEFT RADEX ANKLE COMPLETE MINIMUM 3 VIEWS Felipa Torres, CHOKE REAM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 [address] [place] [address] Phone: tel: fax: [place] [address] Referral ID Status Reason Start Date Expiration Date V isits Requested Visits Authorized [id number] Closed Auto-Generate d Referral 08/14/2025 09/13/2026 1 1 [facility] Summary Purpose Family History No [...] FoundDocuments on File Type Date Recorded 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 Advance Directive(s) 07/21/2020 4:13 PM Advance Directive(s) 07/04/2020 2:27 PM Advance Directive(s) 05/27/2020 9:44 AM Advance Directive(s) 02/21/2020 11:16 AM Advance Directive(s) 08/27/2018 5:40 PM Advance Directive Response Recorded Date/ Time Advance Directives No December 11, 2017 8:21pm Living Will No April 21, 2022 1 :23pm Power of Benefits Director No April 21, 2022 1:23pm Documents on File Type Date Recorded 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 Advance Directive(s) 07/21/2020 4:13 PM Advance Directive(s) 07/04/2020 2:27 PM Advance Directive(s) 05/27/2020 9:44 AM Advance Directive(s) 02/21/2020 11:16 AM Advance Directive(s) 08/27/2018 5:40 PM Advance Directive Response Recorded Date/ Time Advance Directives No December 11, 2017 8:21pm Living Will No June 19, 2022 1:56pm Power of Benefits Director No June 19 1:56pm Advance Directive Response Recorded Date/ Time Advance Directives No December 11, 2017 8:21pm Living Will No September 24 12:47pm Power of Benefits Director No September 24, 2022 12:47pm Advance Directive Response Recorded Date/ Time Advance Directives No December 11, 2017 7:21pm Living Will No January 08 11:41pm Power of Benefits Director No January 08, 2023 11:41pm Advance Directive Response Recorded Date/ Time Advance Directives No December 11, 2017 7:21pm Living Will No February 06, 2023 9:09pm Power of Benefits Director No February 06 9:09pm Advance Directive Response Recorded Date/ Time Do you have a Healthcare Power of Benefits Director? No August 10, 2025 1:15pm Advance Directives No December 11, 2017 8:21pm Advance Directive Response Recorded Date/ Time Do you have a Healthcare Power of Benefits Director? No August 10, 2025 1:15pm Do you have a Healthcare Power of Benefits Director? No September 04, 2025 9:26pm Advance Directives No December 11, 2017 8:21pm Advance Directive Response Recorded Date/ Time Do you have a Healthcare Power of Benefits Director? No September 10, 2025 12:47am Do you have a Healthcare Power of Benefits Director? No August 10, 2025 1:15pm Do you have a Healthcare Power of Benefits Director? No September 04, 2025 9:26pm Do you have a Healthcare Power of Benefits Director? No September 21, 2025 4:45am Advance Directives No December 11, 2017 8:21pm Chief Complaint Patient here for follow up from ER, last pap 05/06/21 wnl, no doll eye setter needed She is here for her depo and to follow up on her pelvic mass. The office provided the depo. Her last pap was in April 2021 and was normal. No doll eye setter needed.patient here for post op visit, last pap 05/06/21 wnl, no doll eye setter needed Chief Complaint and Reason for Visit [...] ABD PAIN September 04, 2025 9: 21pm Chief Complaint Admit Date ankle injury August 10, 2025 12:32pm ABD PAIN September 04, 2025 9: 21pm abd pain September 10, 2025 1 2:46am abd pain September 21, 2025 4 :43am Reason for Referral Specialty Diagnoses / Procedures Referred By Radha t Referred To Contact General Surgery Diagnoses RUQ pain Diarrhea, unspecified type Procedures CONSULT TO GENERAL SURGERY OFFICE/OUTPATIENT [facility] 60-74 MINUTES Latonya Llamas, CHOKE REAM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 [address] [place] [address] Referral ID Status Reason Start Date Expiration Date Visits Requested Visits Authorized [id number] Authorized PCP Requested Referral 07/17/2022 07/17/2023 1 1 Specialty Diagnoses / Procedures Referred By Contac t Referred To Contact Neurology Diagnoses Paresthesia Procedures CONSULT TO NEUROLOGY OFFICE/OUTPATIENT [facility] MDM 60-74 MINUTES Sophie Avalos MD [address] [place] [address] Referral ID Status Reason Start Date Expiration Date Visits Requested Visits Authorized [id number] Authorized PCP Requested Referral 06/08/2022 06/08/2023 1 1 Specialty Diagnoses / Procedures Referred By Contac t Referred To Contact XR IMAGING Diagnoses Right elbow pain Procedures XR ELBOW GENERAL 2V AP/LAT RIGHT RADEX ELBOW 2 VIEWS Sophie Avalos MD [address] [place] [address] Xr Imaging Referral ID Status Reason Start Date Expiration Date V isits Requested Visits Authorized [id number] Closed Auto-Generate d Referral 06/08/2022 07/08/2023 1 1 Specialty Diagnoses / Procedures Referred By Contac t Referred To Contact [facility] Diagnoses Acute pain of right shoulder Procedures CONSULT TO PHYSICAL THERAPY PHYSICAL THERAPY EVALUATION HIGH COMPLEX 45 MINS Di Arreola APRN.GEAR MACHINIST [address] [place] [address] [facility] [address] [place] [address] Referral ID Status Reason Start Date Expiration Date Visits Requested Visits Authorized [id number] Authorized Auto-Generat ed Referral 11/29/2021 11/28/2022 30 [...] section and content) DATE CREATED AUTHOR 10/27/2018 [facility] kiarra [place] DATE CREATED AUTHOR AUTHOR'S ORGANIZ ATION 07/24/2020 [facility] DATE CREATED AUTHOR AUTHOR'S ORGANIZ ATION 09/05/2021 [facility] DATE CREATED AUTHOR AUTHOR'S ORGANIZ ATION 09/07/2021 [facility] DATE CREATED AUTHOR AUTHOR'S ORGANIZ ATION 10/02/2021 [employer] DATE CREATED AUTHOR AUTHOR'S ORGANIZ ATION 10/11/2021 [facility] ([place]) DATE CREATED AUTHOR AUTHOR'S ORGANIZ ATION 10/15/2021 [facility] DATE CREATED AUTHOR AUTHOR'S ORGANIZ ATION 01/20/2023 [facility] DATE CREATED AUTHOR AUTHOR'S ORGANIZ ATION 10/03/2025 [facility] DATE CREATED AUTHOR AUTHOR'S ORGANIZ ATION 10/05/2025 [facility] Source Comments (unrecognize d section and content) In the event this informatio n is protected by the Federal Confidentiality of Alcohol and Drug Abuse Patient Records regulations: The Federal rules restrict any use of the information to criminally investigate or prosecute any alcohol or drug abuse patient.[facility] the event this information is protected by the Federal Confidentiality of Alcohol and Drug Abuse Patient Records regulations: The Federal rules restrict any use of the information to criminally investigate or prosecute any alcohol or drug abuse patient.[facility] the event this information is protected by the Federal Confidentiality of Alcohol and Drug Abuse Patient Records regulations: The Federal rules restrict any use of the information to criminally investigate or prosecute any alcohol or drug abuse patient.[facility] the event this information is protected by the Federal Confidentiality of Alcohol and Drug Abuse Patient Records regulations: The Federal rules restrict any use of the information to criminally investigate or prosecute any alcohol or drug abuse patient.[facility] the event this information is protected by the Federal Confidentiality of Alcohol and Drug Abuse Patient Records regulations: The Federal rules restrict any use of the information to criminally investigate or prosecute any alcohol or drug abuse patient.[facility] the event this information is protected by the Federal Confidentiality of Alcohol and Drug Abuse Patient Records regulations: The Federal rules restrict any use of the information to criminally investigate or prosecute any alcohol or drug abuse patient.[facility] Center[facility] the event this information is protected by the Federal Confidentiality of Alcohol and Drug Abuse Patient Records regulations: The Federal rules restrict any use of the information to criminally investigate or prosecute any alcohol or drug abuse patient.[facility] CenterIn the event this information is protected by the Federal Confidentiality of Alcohol and Drug Abuse Patient Records regulations: The Federal rules restrict any use of the information to criminally investigate or prosecute any alcohol or drug abuse patient.[facility] CenterIn the event this information is protected by the Federal Confidentiality of Alcohol and Drug Abuse Patient Records regulations: The Federal rules restrict any use of the information to criminally investigate or prosecute any alcohol or drug abuse patient.[facility] CenterIn the event this information is protected by the Federal Confidentiality of Alcohol and Drug Abuse Patient Records regulations: The Federal rules restrict any use of the information to criminally investigate or prosecute any alcohol or drug abuse patient.[facility] CenterIn the event this information is protected by the Federal Confidentiality of Alcohol and Drug Abuse Patient Records regulations: The Federal rules restrict any use of the information to criminally investigate or prosecute any alcohol or drug abuse patient.[facility] CenterIn the event this information is protected by the Federal Confidentiality of Alcohol and Drug Abuse Patient Records regulations: The Federal rules restrict any use of the information to criminally investigate or prosecute any alcohol or drug abuse patient.[facility] CenterIn the event this information is protected by the Federal Confidentiality of Alcohol and Drug Abuse Patient Records regulations: The Federal rules restrict any use of the information to criminally investigate or prosecute any alcohol or drug abuse patient.[facility] CenterIn the event this information is protected by the Federal Confidentiality of Alcohol and Drug Abuse Patient Records regulations: The Federal rules restrict any use of the information to criminally investigate or prosecute any alcohol or drug abuse patient.[facility] CenterIn the event this information is protected by the Federal Confidentiality of Alcohol and Drug Abuse Patient Records regulations: The Federal rules restrict any use of the information to criminally investigate or prosecute any alcohol or drug abuse patient.[facility] CenterIn the event this information is protected by the Federal Confidentiality of Alcohol and Drug Abuse Patient Records regulations: The Federal rules restrict any use of the information to criminally investigate or prosecute any alcohol or drug abuse patient.[facility] CenterIn the event this information is protected by the Federal Confidentiality of Alcohol and Drug Abuse Patient Records regulations: The Federal rules restrict any use of the information to criminally investigate or prosecute any alcohol or drug abuse patient.[facility] CenterIn the event this information is protected by the Federal Confidentiality of Alcohol and Drug Abuse Patient Records regulations: The Federal rules restrict any use of the information to criminally investigate or prosecute any alcohol or drug abuse patient.[facility] CenterIn the event this information is protected by the Federal Confidentiality of Alcohol and Drug Abuse Patient Records regulations: The Federal rules restrict any use of the information to criminally investigate or prosecute any alcohol or drug abuse patient.[facility] CenterIn the event this information is protected by the Federal Confidentiality of Alcohol and Drug Abuse Patient Records regulations: The Federal rules restrict any use of the information to criminally investigate or prosecute any alcohol or drug abuse patient.[facility] CenterIn the event this information is protected by the Federal Confidentiality of Alcohol and Drug Abuse Patient Records regulations: The Federal rules restrict any use of the information to criminally investigate or prosecute any alcohol or drug abuse patient.[facility] CenterIn the event this information is protected by the Federal Confidentiality of Alcohol and Drug Abuse Patient Records regulations: The Federal rules restrict any use of the information to criminally investigate or prosecute any alcohol or drug abuse patient.[facility] CenterIn the event this information is protected by the Federal Confidentiality of Alcohol and Drug Abuse Patient Records regulations: The Federal rules restrict any use of the information to criminally investigate or prosecute any alcohol or drug abuse patient.[facility] CenterIn the event this information is protected by the Federal Confidentiality of Alcohol and Drug Abuse Patient Records regulations: The Federal rules restrict any use of the information to criminally investigate or prosecute any alcohol or drug abuse patient.[facility] CenterIn the event this information is protected by the Federal Confidentiality of Alcohol and Drug Abuse Patient Records regulations: The Federal rules restrict any use of the information to criminally investigate or prosecute any alcohol or drug abuse patient.[facility] CenterIn the event this information is protected by the Federal Confidentiality of Alcohol and Drug Abuse Patient Records regulations: The Federal rules restrict any use of the information to criminally investigate or prosecute any alcohol or drug abuse patient.[facility] CenterIn the event this information is protected by the Federal Confidentiality of Alcohol and Drug Abuse Patient Records regulations: The Federal rules restrict any use of the information to criminally investigate or prosecute any alcohol or drug abuse patient.[facility] CenterIn the event this information is protected by the Federal Confidentiality of Alcohol and Drug Abuse Patient Records regulations: The Federal rules restrict any use of the information to criminally investigate or prosecute any alcohol or drug abuse patient.[facility] CenterIn the event this information is protected by the Federal Confidentiality of Alcohol and Drug Abuse Patient Records regulations: The Federal rules restrict any use of the information to criminally investigate or prosecute any alcohol or drug abuse patient.[facility] CenterIn the event this information is protected by the Federal Confidentiality of Alcohol and Drug Abuse Patient Records regulations: The Federal rules restrict any use of the information to criminally investigate or prosecute any alcohol or drug abuse patient.[facility] CenterIn the event this information is protected by the Federal Confidentiality of Alcohol and Drug Abuse Patient Records regulations: The Federal rules restrict any use of the information to criminally investigate or prosecute any alcohol or drug abuse patient.[facility] CenterIn the event this information is protected by the Federal Confidentiality of Alcohol and Drug Abuse Patient Records regulations: The Federal rules restrict any use of the information to criminally investigate or prosecute any alcohol or drug abuse patient.[facility] CenterIn the event this information is protected by the Federal Confidentiality of Alcohol and Drug Abuse Patient Records regulations: The Federal rules restrict any use of the information to criminally investigate or prosecute any alcohol or drug abuse patient.[facility] CenterIn the event this information is protected by the Federal Confidentiality of Alcohol and Drug Abuse Patient Records regulations: The Federal rules restrict any use of the information to criminally investigate or prosecute any alcohol or drug abuse patient.[facility] CenterIn the event this information is protected by the Federal Confidentiality of Alcohol and Drug Abuse Patient Records regulations: The Federal rules restrict any use of the information to criminally investigate or prosecute any alcohol or drug abuse patient.[facility] CenterIn the event this information is protected by the Federal Confidentiality of Alcohol and Drug Abuse Patient Records regulations: The Federal rules restrict any use of the information to criminally investigate or prosecute any alcohol or drug abuse patient.[facility] CenterIn the event this information is protected by the Federal Confidentiality of Alcohol and Drug Abuse Patient Records regulations: The Federal rules restrict any use of the information to criminally investigate or prosecute any alcohol or drug abuse patient.[facility] CenterIn the event this information is protected by the Federal Confidentiality of Alcohol and Drug Abuse Patient Records regulations: The Federal rules restrict any use of the information to criminally investigate or prosecute any alcohol or drug abuse patient.[facility] CenterIn the event this information is protected by the Federal Confidentiality of Alcohol and Drug Abuse Patient Records regulations: The Federal rules restrict any use of the information to criminally investigate or prosecute any alcohol or drug abuse patient.[facility] CenterIn the event this information is protected by the Federal Confidentiality of Alcohol and Drug Abuse Patient Records regulations: The Federal rules restrict any use of the information to criminally investigate or prosecute any alcohol or drug abuse patient.[facility] CenterIn the event this information is protected by the Federal Confidentiality of Alcohol and Drug Abuse Patient Records regulations: The Federal rules restrict any use of the information to criminally investigate or prosecute any alcohol or drug abuse patient.[facility] CenterIn the event this information is protected by the Federal Confidentiality of Alcohol and Drug Abuse Patient Records regulations: The Federal rules restrict any use of the information to criminally investigate or prosecute any alcohol or drug abuse patient.[facility] CenterIn the event this information is protected by the Federal Confidentiality of Alcohol and Drug Abuse Patient Records regulations: The Federal rules restrict any use of the information to criminally investigate or prosecute any alcohol or drug abuse patient.[facility] CenterIn the event this information is protected by the Federal Confidentiality of Alcohol and Drug Abuse Patient Records regulations: The Federal rules restrict any use of the information to criminally investigate or prosecute any alcohol or drug abuse patient.[facility] CenterIn the event this information is protected by the Federal Confidentiality of Alcohol and Drug Abuse Patient Records regulations: The Federal rules restrict any use of the information to criminally investigate or prosecute any alcohol or drug abuse patient.[facility] CenterIn the event this information is protected by the Federal Confidentiality of Alcohol and Drug Abuse Patient Records regulations: The Federal rules restrict any use of the information to criminally investigate or prosecute any alcohol or drug abuse patient.[facility] CenterIn the event this information is protected by the Federal Confidentiality of Alcohol and Drug Abuse Patient Records regulations: The Federal rules restrict any use of the information to criminally investigate or prosecute any alcohol or drug abuse patient.[facility] CenterIn the event this information is protected by the Federal Confidentiality of Alcohol and Drug Abuse Patient Records regulations: The Federal rules restrict any use of the information to criminally investigate or prosecute any alcohol or drug abuse patient.[facility] CenterIn the event this information is protected by the Federal Confidentiality of Alcohol and Drug Abuse Patient Records regulations: The Federal rules restrict any use of the information to criminally investigate or prosecute any alcohol or drug abuse patient.[facility] CenterIn the event this information is protected by the Federal Confidentiality of Alcohol and Drug Abuse Patient Records regulations: The Federal rules restrict any use of the information to criminally investigate or prosecute any alcohol or drug abuse patient.[facility] CenterIn the event this information is protected by the Federal Confidentiality of Alcohol and Drug Abuse Patient Records regulations: The Federal rules restrict any use of the information to criminally investigate or prosecute any alcohol or drug abuse patient.[facility] CenterIn the event this information is protected by the Federal Confidentiality of Alcohol and Drug Abuse Patient Records regulations: The Federal rules restrict any use of the information to criminally investigate or prosecute any alcohol or drug abuse patient.[facility] CenterIn the event this information is protected by the Federal Confidentiality of Alcohol and Drug Abuse Patient Records regulations: The Federal rules restrict any use of the information to criminally investigate or prosecute any alcohol or drug abuse patient.[facility] CenterIn the event this information is protected by the Federal Confidentiality of Alcohol and Drug Abuse Patient Records regulations: The Federal rules restrict any use of the information to criminally investigate or prosecute any alcohol or drug abuse patient.[facility] CenterIn the event this information is protected by the Federal Confidentiality of Alcohol and Drug Abuse Patient Records regulations: The Federal rules restrict any use of the information to criminally investigate or prosecute any alcohol or drug abuse patient.[facility] CenterIn the event this information is protected by the Federal Confidentiality of Alcohol and Drug Abuse Patient Records regulations: The Federal rules restrict any use of the information to criminally investigate or prosecute any alcohol or drug abuse patient.[facility] CenterIn the event this information is protected by the Federal Confidentiality of Alcohol and Drug Abuse Patient Records regulations: The Federal rules restrict any use of the information to criminally investigate or prosecute any alcohol or drug abuse patient.[facility] CenterIn the event this information is protected by the Federal Confidentiality of Alcohol and Drug Abuse Patient Records regulations: The Federal rules restrict any use of the information to criminally investigate or prosecute any alcohol or drug abuse patient.[facility] CenterIn the event this information is protected by the Federal Confidentiality of Alcohol and Drug Abuse Patient Records regulations: The Federal rules restrict any use of the information to criminally investigate or prosecute any alcohol or drug abuse patient.[facility] CenterIn the event this information is protected by the Federal Confidentiality of Alcohol and Drug Abuse Patient Records regulations: The Federal rules restrict any use of the information to criminally investigate or prosecute any alcohol or drug abuse patient.[facility] CenterIn the event this information is protected by the Federal Confidentiality of Alcohol and Drug Abuse Patient Records regulations: The Federal rules restrict any use of the information to criminally investigate or prosecute any alcohol or drug abuse patient.[facility] CenterIn the event this information is protected by the Federal Confidentiality of Alcohol and Drug Abuse Patient Records regulations: The Federal rules restrict any use of the information to criminally investigate or prosecute any alcohol or drug abuse patient.[facility] CenterIn the event this information is protected by the Federal Confidentiality of Alcohol and Drug Abuse Patient Records regulations: The Federal rules restrict any use of the information to criminally investigate or prosecute any alcohol or drug abuse patient.[facility] CenterIn the event this information is protected by the Federal Confidentiality of Alcohol and Drug Abuse Patient Records regulations: The Federal rules restrict any use of the information to criminally investigate or prosecute any alcohol or drug abuse patient.[facility] Reason for Visit (unrecogniz ed section and content) Reason Comments Physical Therapy Specialty Diagnoses / Procedures Referred By Contac t Referred To Contact [facility] Diagnoses Acute pain of right shoulder Procedures CONSULT TO PHYSICAL THERAPY PHYSICAL THERAPY EVALUATION HIGH COMPLEX 45 MINS Di Arreola, [employer]KE RE[employer]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 [address] [place] [address] [facility] [place] [address] [place] [address] Referral ID Status Reason Start Date Expiration Date Visits Requested Visits Authorized [id number] Authorized Auto-Generat ed Referral 11/29/2021 11/28/2022 30 [...] ABDOMINAL REAL TIME W/IMAGE LIMITED Latonya Llamas, [employer] RE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 [address] [place] [address] [facility] Referral ID Status Reason Start Date Expiration Date V isits Requested Visits Authorized [id number] Closed Auto-Generate d Referral 06/29/2022 07/29/2023 1 1 Reason Comments Numbness In legs Specialty Diagnoses / Procedures Referred By Contac t Referred To Contact Neurology Diagnoses Paresthesia Procedures CONSULT TO NEUROLOGY OFFICE/OUTPATIENT NEW HIGH MDM 60-74 MINUTES Sophie Avalos MD [address] [place] [address] Referral ID Status Reason Start Date Expiration Date V isits Requested Visits Authorized [id number] Closed PCP Requested Referral 06/08/2022 06/08/2023 1 1 Reason Comments Radiology NM Specialty Diagnoses / Procedures Referred By Contac t Referred To Contact [facility] Diagnoses Nausea Procedures NM HEPATOBILIARY W EF AND/OR RX HEPATOBIL SYST IMAG INC GB W/PHARMA INTERVENJ Latonya Llamas, CHOKE REAM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 Reason Comments Med Change Request Reason Onset Date Comments EMG 09/18/2022 Specialty Diagnoses / Procedures Referred By Contac t Referred To Contact [facility] Diagnoses Paresthesia Leg weakness, bilateral Right arm numbness Lower extremity numbness Procedures [facility](NEURO/NI) NERVE CONDUCTION STUDIES 9-10 STUDIES Brandi Oconnell, [employer] RE[employer]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 [address] [id number] [facility] [place] [address] [place] [address] Referral ID Status Reason Start Date Expiration Date V isits Requested Visits Authorized [id number] Closed Auto-Generate d Referral 11/29/2021 11/28/2022 1 [...] RLQ pain intermitten t since oophorectomy in Jul/Aug Reason Comments follow up for medoications, form for edgardo padron permit Reason Comments Forms BMV Reason Onset Date Comments Refill Request 06/26/2025 Reason Comments Insurance Authorization Reason Comments Follow Up Referral to [facility] for pap? Migraine Increase in migraine s since stopping topamax. Was not able to get the Qulipta. Also duloxetine was only ordered as once daily and she thought was to be twice daily. Reason Comments Cough Sneezing, stuffy/run ny nose, drainage, sore throat x 1.5 weeks Reason Comments ER F/U Left foot Care Teams (unrecognized sec tion and content) [employer] Driver Relationship Specialty Start Date End Date Sophie Avalos MD [address] [place], [place] [id number] PCP - General Family Practice 05/27/19 [employer]iger[employer] Company Driver Relationship Specialty Start Date End Date Sophie Avalos MD [address] [place], [place] [id number] PCP - General Family Practice 05/27/19 [employer]igerated Company Driver Relationship Specialty Start Date End Date Sophie Avalos MD [address] [place], [place] [id number] PCP - General Family Practice 05/27/19 [employer]igerated Company Driver Relationship Specialty Start Date End Date Sophie Avalos MD [address] [place], [place] [id number] PCP - General Family Practice 05/27/19 [employer]igerated Company Driver Relationship Specialty Start Date End Date Sophie Avalos MD [address] [facility] [place] [address] PCP - General Family Practice 05/27/19 [employer]igerated Company Driver Relationship Specialty Start Date End Date Sophie Avalos MD [address] [facility] [place] [address] PCP - General Family Practice 05/27/19 [employer]igerated Company Driver Relationship Specialty Start Date End Date Sophie Avalos MD [address] [place] [address] PCP - General Family Practice 05/27/19 [employer]igerated Company Driver Relationship Specialty Start Date End Date Sophie Avalos MD [address] [place] [address] PCP - General Family Practice 05/27/19 [employer]igerated Company Driver Relationship Specialty Start Date End Date Sophie Avalos MD [address] [place] [address] PCP - General Family Practice 05/27/19 [employer]igerated Company Driver Relationship Specialty Start Date End Date Sophie Avalos MD [address] [place] [address] PCP - General Family Practice 05/27/19 [employer]igerated Company Driver Relationship Specialty Start Date End Date Sophie Avalos MD [address] [place] [address] PCP - General Family Practice 05/27/19 [employer]igerated Company Driver Relationship Specialty Start Date End Date Sophie Avalos MD [address] [place] [address] PCP - General Family Practice 05/27/19 [employer]igerated Company Driver Relationship Specialty Start Date End Date Sophie Avalos MD [address] [facility] [place] [address] PCP - General Family Practice 05/27/19 [employer]rigerated Company Driver Relationship Specialty Start Date End Date Sophie Avalos MD [address] [facility] [place] [address] PCP - General Family Practice 05/27/19 [employer]rigerated Company Driver Relationship Specialty Start Date End Date Sophie Avalos MD [address] [facility] [place] [address] PCP - General Family Practice 05/27/19 [employer]rigerated Company Driver Relationship Specialty Start Date End Date Sophie Avalos MD [address] [facility] [place] [address] PCP - General Family Practice 05/27/19 [employer]rigerated Company Driver Relationship Specialty Start Date End Date Sophie Avalos MD [address] [facility] [place] [address] PCP - General Family Medicine 05/27/19 [employer]rigerated Company Driver Relationship Specialty Start Date End Date Sophie Avalos MD [address] [facility] [place] [address] PCP - General Family Medicine 05/27/19 [employer]igerated Company Driver Relationship Specialty Start Date End Date Sophie Avalos MD [address] [facility] [place] [address] PCP - General Family Medicine 05/27/19 [employer]igerated Company Driver Relationship Specialty Start Date End Date Sophie Avalos MD [address] [facility] [place] [address] PCP - General Family Medicine 05/27/19 [employer]igerated Company Driver Relationship Specialty Start Date End Date Sophie Avalos MD [address] [facility] [place] [address] PCP - General Family Medicine 05/27/19 [employer]rigerated Company Driver Relationship Specialty Start Date End Date Sophie Avalos MD [address] [facility] [place] [address] PCP - General Family Medicine 05/27/19 [employer]rigerated Company Driver Relationship Specialty Start Date End Date Sophie Avalos MD [address] [facility] [place] [address] PCP - General Family Medicine 05/27/19 [employer]rigerated Company Driver Relationship Specialty Start Date End Date Sophie Avalos MD [address] [place] [address] PCP - General Family Medicine 05/27/19 [employer]rigerated Company Driver Relationship Specialty Start Date End Date Sophie Avalos MD [address] [facility] [place] [id number] PCP - General Family Medicine 05/27/19 [employer] Company Driver Relationship Specialty Start Date End Date Sophie Avalos MD [address] [facility] [place] [address] PCP - General Family Medicine 05/27/19 [employer] Driver Relationship Specialty Start Date End Date Sophie Avalos MD [address] [facility] [place] [address] PCP - General Family Medicine 05/27/19 [employer] Driver Relationship Specialty Start Date End Date Sophie Avalos MD [address] [facility] [place] [address] PCP - General Family Medicine 05/27/19 [employer] Driver Relationship Specialty Start Date End Date Sophie Avalos MD [address] [facility] [place] [address] PCP - General Family Medicine 05/27/19 Team Status: Active Member Role Status Dates Dr. Sophie Avalos MD Family Provider Active Dr. Sophie Avalos MD Primary Care Provider Active Team Status: Inactive Member Role Status Dates Dr. Sophie Avalos MD Primary Care Provider Active Dr. Ernie Birch , Attending Provider, Emergency Provider Active Team Status: [...] Dr. Pola Garza MD Emergency Provider Active [employer] Driver Relationship Specialty Start Date End Date Sophie Avalos MD [address] [place] [address] PCP - General Family Medicine 05/27/19 [employer] Driver Relationship Specialty Start Date End Date Sophie Avalos MD [address] [place] [address] PCP - General Family Medicine 05/27/19 [employer] Company Driver Relationship Specialty Start Date End Date Sophie Avalos MD [address] [place] [address] PCP - General Family Medicine 05/27/19 [employer] Driver Relationship Specialty Start Date End Date Sophie Avalos MD [address] [place] [address] PCP - General Family Medicine 05/27/19 [employer] Driver Relationship Specialty Start Date End Date Sophie Avalos MD [address] [place] [address] PCP - General Family Medicine 05/27/19 [employer] Company Driver Relationship Specialty Start Date End Date Sophie Avalos MD [address] [place], [place] [id number] PCP - General Family Medicine 05/27/19 [employer] Company Driver Relationship Specialty Start Date End Date Sophie Avalos MD [address] [place], [place] [address] PCP - General Family Medicine 05/27/19 [employer] Company Driver Relationship Specialty Start Date End Date Sophie Avalos MD [address] [facility], [place] [address] PCP - General Family Medicine 05/27/19 [employer] Company Driver Relationship Specialty Start Date End Date Sophie Avalos MD [address] [place], [place] [id number] PCP - General Family Medicine 05/27/19 [employer] Company Driver Relationship Specialty Start Date End Date Sophie Avalos MD [address] [place] [address] PCP - General Family Medicine 05/27/19 [employer] Company Driver Relationship Specialty Start Date End Date Sophie Avalos MD [address] [place] [address] PCP - General Family Medicine 05/27/19 Di Arreola APRN.GEAR MACHINIST [address] [place] [address] Client Support Professional Family Medicine 11/06/24 Felipa Torres CHOKE REAM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 [address] [place] [address] Client Support Professional Family Medicine 11/06/24 [employer]iger[employer] Company Driver Relationship Specialty Start Date End Date Sophie Avalos MD [address] [place], [place] [address] PCP - General Family Medicine 05/27/19 Di Arreola CHOKE REAM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 [address] [place] [address] [facility]ly [facility] 11/06/24 Felipa Torres APRN.GEAR MACHINIST [address] [facility] [place] [address] [facility]ly [facility] 11/06/24 [employer]igerated Company Driver Relationship Specialty Start Date End Date Sophie Avalos MD [address] [facility] [place] [address] PCP - General Family Medicine 05/27/19 Di Arreola APRN.GEAR MACHINIST [address] [place] [address] Formerly [facility] 11/06/24 Felipa Torres APRN.GEAR MACHINIST [address] [facility] [place] [address] Formerly [facility] 11/06/24 [employer]igerated Company Driver Relationship Specialty Start Date End Date Sophie Avalos MD [address] [facility] [place] [address] PCP - General Family Medicine 05/27/19 Di Arreola APRN.GEAR MACHINIST [address] [place] [address] Formerly [facility] 11/06/24 Felipa Torres CHOKE REAM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 [address] [facility] [place] [address] Formerly [facility] 11/06/24 [employer]rigerated Company Driver Relationship Specialty Start Date End Date Sophie Avalos MD [address] [facility] [place] [address] PCP - General Family Medicine 05/27/19 Di Arreola APRN.GEAR MACHINIST [address] [facility] [place] [address] Client Support Professional Family Medicine 11/06/24 Felipa Torres APRN.GEAR MACHINIST [address] [place] [address] Client Support Professional Family Medicine 11/06/24 [employer]igerated Company Driver Relationship Specialty Start Date End Date Sophie Avalos MD [address] [place] [address] PCP - General Family Medicine 05/27/19 Di Arreola APRN.GEAR MACHINIST [address] [facility] [place] [address] Client Support Professional Family Medicine 11/06/24 Felipa Torres APRN.GEAR MACHINIST [address] [place] [place] [address] Client Support Professional Family Medicine 11/06/24 [employer]igerated Company Driver Relationship Specialty Start Date End Date Sophie Avalos MD [address] [place] [address] PCP - General Family Medicine 05/27/19 Di Arreola APRN.GEAR MACHINIST [address] [facility] [place] [address] Client Support Professional Family [facility] 11/06/24 Felipa Torres APRN.GEAR MACHINIST [address] [place] [address] Client Support Professional Family Medicine 11/06/24 [employer]rigerated Company Driver Relationship Specialty Start Date End Date Sophie Avalos MD [address] [place] [address] PCP - General Family Medicine 05/27/19 Di Arreola APRN.GEAR MACHINIST [address] [place] [address] Client Support Professional Family [facility] 11/06/24 Felipa Torres APRN.GEAR MACHINIST [address] [place] [address] [facility] [employer]igerated Company Driver Relationship Specialty Start Date End Date Sophie Avalos MD [address] [place] [address] PCP - General Family Medicine 05/27/19 Di Arreola APRN.GEAR MACHINIST [address] [place] [address] Client Support Professional Family Medicine 11/06/24 Felipa Torres APRN.GEAR MACHINIST [address] [place] [address] [facility] 11/06/24 [employer]igerated Company Driver Relationship Specialty Start Date End Date Sophie Avalos MD [address] [place] [address] PCP - General Family Medicine 05/27/19 Di Arreola APRN.GEAR MACHINIST [address] [place] [address] Client Support Professional Family Medicine 11/06/24 Felipa Torres APRN.GEAR MACHINIST [address] [place] [address] Client Support Professional Family Medicine 11/06/24 [employer]rigerated Company Driver Relationship Specialty Start Date End Date Sophie Avalos MD [address] [facility] [place] [id number] PCP - General Family Medicine 05/27/19 Di Arreola, CHOKE REAM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 [address] [facility] [place], [place] [address] Client Support Professional Family Medicine 11/06/24 Felipa Torres CHOKE REAM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 [address] [facility] [place], [place] [id number] [facility]24 Team Status: Active Member Role/Relationship Status Dates Dr. Sophie Avalos MD Primary Care Provider Active Team Status: Inactive Member Role/Relationship Status Dates Dr. Sophie Avalos MD Primary Care Provider Active Start: August 10, 2025 End: August 10, 2025 Dr. Robles De La Torre DO Emergency Provider Active Start: August 10, 2025 End: August 10, 2025 [employer] Driver Relationship Specialty Start Date End Date Sophie Avalos MD [address] [facility] [place], [place] [id number] PCP - General Family Medicine 05/27/19 Di Arreola, CHOKE REAM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 [address] [facility] [place] [address] Client Support Professional Family Medicine 11/06/24 Felipa Torres CHOKE REAM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 [address] [facility] [place] [id number] [facility] 11/06/24 [employer]igerated Company Driver Relationship Specialty Start Date End Date Sophie Avalos MD [address] [facility] [place] [id number] PCP - General Family Medicine 05/27/19 Di Arreola, CHOKE REAM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 [address] [place], [place] [address] Client Support Professional [facility] 11/06/24 Felipa Torres, CHOKE REAM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 [address] [place], [place] [address] [facility]24 Team Status: Active Member Role/Relationship [...] September 04, 2025 End: September 05, 2025 Team Status: Inactive Member Role/Relationship Status Dates Dr. Sophie Avalos MD Primary care physician Active Start: September 04, 2025 End: September 05, 2025 Dr. Jose Blair MD Attending physician Active Start: September 04, 2025 End: September 05, 2025 Dr. Jose Blair MD Emergency Department Physician Ac tive Start: September 04, 2025 End: September 05, 2025 Team Status: Inactive Member Role/Relationship Status Dates Dr. Sophie Avalos MD Primary care physician Active Start: September 10, 2025 End: September 10, 2025 Dr. Mukul Yusuf DO Attending physician Active Start: September 10, 2025 End: September 10, 2025 Dr. Mukul Yusuf DO Emergency Department Physician A ctive Start: September 10, 2025 End: September 10, 2025 Team Status: Inactive Member Role/Relationship Status Dates Dr. Sophie Avalos MD Primary care physician Active Start: September 21, 2025 End: September 21, 2025 Dr. Justin Goldman MD Emergency Depart ment Physician Active Start: September 21, 2025 End: September 21, 2025 Goals (unrecognized section and content) Goals [...] BE BASED ON THE PRIMARY CLINICAL RECORDS. [employer] provides no warranty or guarantee of the accuracy or completeness of information in this document.
--- NOTE | 2025-11-25 05:14 | EDS_ITS ---
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 [facility] Medical History Anemia ADHD Dermoid cyst of right ovary Migraines Seizures Anxiety Depression HPV (human papilloma virus) infection IBS (irritable bowel syndrome) Home Medications ?Medication ?Instructions ?Recorded ?Last Taken ?Type ferrous sulfate 325 mg (65 mg 325 mg PO DAILY 10/18/19 Unknown History iron) tablet topiramate 50 mg tablet 50 mg PO BID 03/16/20 Unknow n History ondansetron 4 mg disintegrating 4 mg PO Q8H PRN PRN Na usea #10 tabs 07/31/22 Unknown Rx tablet naproxen 500 mg tablet (Naprosyn) 500 mg PO BID PRN pa in #20 tabs 09/24/22 Unknown Rx tizanidine 4 mg capsule (Zanaflex) 4 mg PO Q8H PRN mus carmen spasticity 09/24/22 Unknown Rx #14 caps folic acid 1 mg tablet 1 mg PO DAILY 10/17/22 Unkno wn History albuterol sulfate 90 mcg/actuation 1 - 2 puff inhalati on Q4H PRN PRN 01/09/23 Unknown Rx aerosol inhaler (Ventolin HFA) Wheezing #1 device ipratropium 0.5 mg-albuterol 3 mg 3 ml inhalation Q6H PRN shortness 01/09/23 Unknown Rx (2.5 mg base)/3 mL nebulization of breath or wheezing #180 mL soln nebulizer and compressor #1 ea 01/09/23 Unknown Rx promethazine 6.25 mg-codeine 10 5 ml PO 4X/DAY PRN PRN cough 7 01/09/23 Unknown Rx mg/5 mL syrup days #140 mL loperamide 2 mg capsule 2 mg PO Q6H PRN loose stool 4 days 02/11/23 Unknown Rx #10 caps duloxetine 60 mg capsule,delayed 60 mg PO DAILY Unknown History release fremanezumab-vfrm 225 mg/1.5 mL 225 mg subcut QMONTH 1 Unknown History subcutaneous auto-injector (Ajovy) gabapentin 400 mg capsule 400 mg PO QHS 09/10/25 Unkno wn History hydroxyzine HCl 25 mg tablet 25 - 50 mg PO QHS PRN PRN insomnia 09/10/25 Unknown History levetiracetam 1,000 mg tablet 1,000 mg PO BID 09/10/25 Unknown History dicyclomine 20 mg tablet 20 mg PO Q6H PRN PRN abdomin al 09/21/25 Unknown Rx discomfort #20 tabs clindamycin HCl 300 mg capsule 300 mg PO Q6H #28 CAPSU LES 11/25/25 Unknown Rx (Cleocin HCl) Allergy/AdvReac Type Severity Reaction Status Date / Time amoxicillin Allergy Anaphylaxis Verified 11/25/25 04:33 bee venom protein (honey bee) Allergy Swelling Verified 11/25/25 04:33 etonogestrel (From Nexplanon) Allergy Swelling Verified 11/25/25 04:33 lidocaine Allergy Anaphylaxis Verified 11/25/25 04:33 mepivacaine (From Carbocaine) Allergy Swelling Verified 11/25/25 04:33 mushroom Allergy Other Verified 11/25/25 04:33 procaine (From Novocain) Allergy Swelling Verified 11/25/25 04:33 adhesive tape AdvReac Rash Verified 11/25/25 04:33 morphine AdvReac Other Verified 11/25/25 04:33 Surgical History Hx of cholecystectomy Hx of laparoscopy Social History household members: friend(s) Smoking Status: Current every day smoker tobacco type: cigarettes and e- cigarettes alcohol intake: current alcohol intake frequency: other substance use type: does not use ROS ROS ED ROS Narrative Pertinent Positives: Ear pain dental pain Pertinent Negatives: Fevers chills vomiting The remainder of review of systems negative unless otherwise stated in the HPI above. Systems reviewed including constitutional, psychiatric, cardiovascular, respiratory, integument, HENT, gastrointestinal. EXAM Physical Exam Narrative Exam Narrative: Patient is afebrile hemodynamically stable does not appear toxic or in distress normal range of motion of head and neck no evidence of mastoiditis or vesicular lesions TMs are clear bilaterally normal range of motion of the head and neck oropharynx is clear although she has very poor dentition you can see the tumor on the very front of her upper gumline there is no bleeding there is no purulent drainage but she has poor dentition and likely has an underlying infection no lingual or sublingual edema Const Vital Signs: 11/25/25 04:30 Temperature 97.8 F Temperature Source Oral Pulse Rate 92 Respiratory Rate 16 Blood Pressure 136/77 H Blood Pressure Mean 96 Pulse Ox 100 Oxygen Delivery Method Room Air MDM MDM MDM Narrative Medical decision making narrative: Nursing notes, triage notes, available previous documentation, and vital signs were reviewed. Any discrepancies noted were addressed. Differential Diagnoses: Dental infection from dental caries not trench mouth or periapical abscess or deep deep space neck infection or peritonsillar abscess or meningitis no mastoiditis no acute otitis media Interventions: Antibiotics Given: Clindamycin Previous Documentation Reviewed: None available or applicable at this time. ED Course: Patient presenting with symptoms and findings as stated above she has a dental infection because of her poor dentition she has a dentist she needs to get into the office there we will give her a dose of clindamycin here as well as a prescription for the same return precautions follow-up recommendations provided she is stable for discharge home. This note was made utilizing voice recognition software. All attempts were made to correct spelling or other errors prior to note completion. However, due to the fast-paced nature of emergency medicine, some errors may still be present. Discharge Plan Triage Chief Complaint: Dental ED Provider: Alessandro Noel Dx/Rx/DC Orders Clinical Impression: Infected dental caries Instructions: ED Dental Pain Prescriptions: New clindamycin HCl [Cleocin HCl] 300 mg capsule 300 mg PO Q6H Qty: 28 0RF No Action ferrous sulfate 325 MG tablet 325 mg PO DAILY Patient Comments: Take 1 tablet by mouth twice daily with meals. topiramate 50 MG tablet 50 mg PO BID ondansetron [ondansetron] 4 mg tablet,disintegrating 4 mg PO Q8H PRN PRN (Reason: Nausea) Qty: 10 0RF tizanidine [Zanaflex] 4 mg capsule 4 mg PO Q8H PRN (Reason: muscle spasticity) Qty: 14 0RF naproxen [Naprosyn] 500 mg tablet 500 mg PO BID PRN (Reason: pain) Qty: 20 0RF folic acid 1 mg tablet 1 mg PO DAILY Patient Comments: Take 1 tablet by mouth once daily. albuterol sulfate [Ventolin HFA] 90 mcg/actuation HFA aerosol inhaler 1 - 2 puff inhalation Q4H PRN PRN (Reason: Wheezing) Qty: 1 2RF ipratropium-albuterol 0.5 mg-3 mg(2.5 mg base)/3 mL solution for nebulization 3 ml inhalation Q6H PRN (Reason: shortness of breath or wheezing) Qty: 180 1RF promethazine-codeine 6.25-10 mg/5 mL syrup 5 ml PO 4X/DAY PRN PRN (Reason: cough) 7 Days Qty: 140 0RF (DME) nebulizer and compressor Device See Rx Instructions .Route Qty: 1 0RF Rx Instructions: As directed loperamide 2 mg capsule 2 mg PO Q6H PRN (Reason: loose stool) 4 Days Qty: 10 0RF gabapentin 400 mg capsule 400 mg PO QHS hydroxyzine HCl 25 mg tablet 25 - 50 mg PO QHS PRN PRN (Reason: insomnia) duloxetine 60 mg capsule,delayed release(DR/EC) 60 mg PO DAILY levetiracetam 1,000 mg tablet 1,000 mg PO BID Ajovy Autoinjector 225 mg/1.5 mL auto-injector 225 mg SUBCUT QMONTH Patient Comments: Inject 1.5 mL subcutaneously once every month. Do not shake. dicyclomine 20 mg tablet 20 mg PO Q6H PRN PRN (Reason: abdominal discomfort) Qty: 20 0RF Primary Care Provider: Galdino Nam Referrals: Galdino Nam MD [Primary Care Provider, Medical] Activity Restrictions/Additional Instructions: Follow-up with your dentist take the antibiotics to completion return if worse Print Language: Macedonian Disposition Disposition: Home, Self Care
[2025-11-25 06:22] VITALS: BP 114/85; PULSE 88; RESP 14; TEMP 36.6; O2SAT 97
== END 2025-11-25 06:23 | disposition home or self-care (01) ==
PROVIDERS: Emergency Provider Specialist/Technologist Athletic Trainer; PCP Family Medicine; Visit Provider Specialist/Technologist Athletic Trainer
DX: K02.9 Dental caries, unspecified (principal); F17.210 Nicotine dependence, cigarettes, uncomplicated; F17.290 Nicotine dependence, other tobacco product, uncomplicated
CPT/HCPCS: 99282